=== PATIENT | female | born 1935 | race Caucasian/White ===

== ENCOUNTER 2018-03-03 22:12 | Inpatient (IN) | payer MEDICARE, MEDICAID ==
[~2018-03-03] VITALS: Ht 160 cm; Wt 99.4 kg
[2018-03-03] MEDS ORDERED: ONDANSETRON 4 MG/2 ML (SDV) Z0FRAN IV PRN (22:15)
[2018-03-03] MEDS ORDERED: BENZONATATE 100 MG (TESSALON) CAPSULE PO PRN (22:15)
[2018-03-03] MEDS ORDERED: MILK OF MAGNESIA 400 MG/5 ML 30 ML UDC PO PRN (22:15)
[2018-03-03] MEDS ORDERED: NOREPINEPHRINE 4 MG in NS (IVPB) 250 ML IV SCH (22:15)
[2018-03-03] MEDS ORDERED: ACETAMINOPHEN 500 MG TAB (TYLENOL) PO PRN (22:15)
[2018-03-03] MEDS ORDERED: MELATONIN 3 MG TABLET PO PRN (22:15)
[2018-03-03] MEDS ORDERED: ANTACID SUSP 30 ML UDC (MYLANTA) PO PRN (22:15)
[2018-03-03 23:46] VITALS: BP 151/52
[2018-03-04] VITALS (30 sets, daily range): BP systolic 100–171; BP diastolic 43–105
[2018-03-04 00:48] LABS: BASOPHILS % (AUTO) 0 % (0-10); EOSINOPHILS % (AUTO) 0 % (0-10); HEMATOCRIT 41 % (35-52); HEMOGLOBIN 13.2 G/DL (11.5-16.0); LYMPHOCYTES # (AUTO) 0.5 X 10^3 (1.0-4.0); LYMPHOCYTES % (AUTO) 4 % (12-44); MEAN CORPUSCULAR HEMOGLOBIN 29 PG (25-34); MEAN CORPUSCULAR HGB CONC 32 G/DL (32-36); MEAN CORPUSCULAR VOLUME 92 FL (80-99); MEAN PLATELET VOLUME 13.1 FL (7.4-10.4); MONOCYTES # (AUTO) 0.4 X 10^3 (0.0-1.0); MONOCYTES % (AUTO) 3 % (0-12); NEUTROPHILS # (AUTO) 11.8 X 10^3 (1.8-7.8); NEUTROPHILS % (AUTO) 93 % (42-75); PLATELET COUNT 153 10^3/uL (130-400); RED BLOOD COUNT 4.52 10^6/uL (4.35-5.85); RED CELL DISTRIBUTION WIDTH 14.4 % (10.0-14.5); WHITE BLOOD COUNT 12.7 10^3/uL (4.3-11.0)
[2018-03-04] MEDS ORDERED: NS IV 1000 ML 1,000 ML IV SCH (01:00)
[2018-03-04 01:07] LABS: ALBUMIN 3.7 GM/DL (3.2-4.5); BILIRUBIN,TOTAL 0.5 MG/DL (0.1-1.0); CREATININE SERUM 1.09 MG/DL (0.60-1.30); MAGNESIUM 1.5 MG/DL (1.8-2.4); PHOSPHORUS 3.1 MG/DL (2.3-4.7); POTASSIUM 4.6 MMOL/L (3.6-5.0); TOTAL PROTEIN 6.6 GM/DL (6.4-8.2)
[2018-03-04 01:19] LABS: BAND NEUTROPHILS 2 %; LYMPHOCYTES % (MANUAL) 1 %; MONOCYTES % (MANUAL) 1 %; NEUTROPHILS % (MANUAL) 96 %; RBC MORPH NORMAL
[2018-03-04] MEDS ORDERED: ACETAMINOPHEN 325 MG TABLET ONE (01:41)
[2018-03-04] MEDS: ACETAMINOPHEN 325 MG TABLET PO PRN ×3 (01:47→20:46)
--- NOTE | 2018-03-04 05:42 | Pulmonary Consultation ---
History of Present Illness History of Present Illness Date of Consultation 03/04/18 05:37 Date of Admission Allergies and Home Medications Allergies Coded Allergies: Penicillins (Verified Allergy, Unknown, 03/04/18) acetaminophen (Verified Allergy, Unknown, 03/04/18) codeine (Verified Allergy, Unknown, 03/04/18) levofloxacin (Verified Allergy, Unknown, 03/04/18) meperidine (Verified Allergy, Unknown, 03/04/18) mirabegron (Verified Allergy, Unknown, 03/04/18) morphine (Verified Allergy, Unknown, 03/04/18) oxycodone (Verified Allergy, Unknown, 03/04/18) sitagliptin (Verified Allergy, Unknown, 03/04/18) Past Dffhnxe-Mokpha-Fagcat Hx Patient Social History Smoking Status: Former Smoker Type Used: Cigarettes Former Smoker, Quit: Jul 22, 1992 Recent Foreign Travel: No Contact w/Someone Who Travel: No Recent Infectious Disease Expo: No Recent Hopitalizations: No Immunizations Up To Date Date of Pneumonia Vaccine: Dec 12, 2017 Date of Influenza Vaccine: Dec 12, 2017 Seasonal Allergies Seasonal Allergies: No Past Medical History Surgeries: Yes Respiratory: Yes Asthma Currently Using CPAP: No Currently Using BIPAP: No Cardiac: Yes Neurological: Yes Genitourinary: Yes (INCONT) UTI-Chronic Gastrointestinal: No Musculoskeletal: Yes (STENOSIS) Arthritis, Chronic Back Pain Endocrine: Yes HEENT: No Cancer: Yes Skin Did You Recieve Any Treatments: Yes What Type of Treatment Did You: Surgical Intervention Psychosocial: No Integumentary: No Blood Disorders: No Family Medical History Cardiovascular disease G8 BROTHER Completed stroke G8 SISTER Diabetes mellitus 19 MOTHER G8 BROTHER Fibromyalgia DAUGHTER Myocardial infarction 19 FATHER G8 BROTHER Sepsis Event Evaluation Height, Weight, BMI Height: 5'3.00" Weight: 216lbs. 8.0oz. 98.625614pt; 38.4 BMI Method: Exam Exam Vital Signs Date Time Temp Pulse Resp B/P (MAP) Pulse Ox O2 Delivery O2 Flow Rate FiO2 03/04/18 04:14 100.0 03/04/18 04:01 Nasal Cannula 2.00 03/04/18 04:00 88 116/69 (85) 100 Nasal Cannula 2.00 03/04/18 03:45 101 28 100/43 (62) 94 Nasal Cannula 2.00 03/04/18 03:30 88 8 123/58 (79) 96 Room Air 03/04/18 03:19 100.4 03/04/18 03:15 98 31 136/62 (86) 94 Room Air 03/04/18 03:00 90 28 145/59 (87) 94 Room Air 03/04/18 02:45 94 28 148/92 (110) 94 Room Air 03/04/18 02:34 100.8 03/04/18 02:30 86 28 162/61 (94) 95 Room Air 03/04/18 02:17 101.3 03/04/18 02:16 101.3 03/04/18 02:15 99 32 168/70 (102) 95 Room Air 03/04/18 02:00 90 20 165/91 (115) 95 Room Air 03/04/18 01:51 100.5 03/04/18 01:47 100.1 03/04/18 01:45 90 36 152/93 (112) 94 Room Air 03/04/18 01:45 100.1 03/04/18 01:30 85 39 149/105 (120) 96 Room Air 03/04/18 01:28 100.1 03/04/18 01:15 93 10 171/63 (99) 92 Room Air 03/04/18 01:00 90 03/04/18 01:00 90 24 131/83 (99) 91 Room Air 03/04/18 00:58 99.6 03/04/18 00:45 101 142/80 (100) 92 Room Air 03/04/18 00:30 95 Room Air 03/04/18 00:15 77 22 135/48 (77) 92 Room Air 03/04/18 00:00 101 17 146/82 (103) 94 Room Air 03/03/18 23:50 99 03/03/18 23:46 98.5 95 35 151/52 (85) 96 Room Air 03/03/18 23:40 Room Air I & O 03/04/18 07:00 Intake Total 100 ml Output Total 300 ml Balance -200 ml Height & Weight Height: 5'3.00" Weight: 216lbs. 8.0oz. 98.728363rn; 38.4 BMI Method: Results Lab Laboratory Tests 03/04/18 00:25 Assessment/Plan Assessment/Plan Pneumonia with sepsis -Continue rocephin and azithromycin -IVF -d[place]ont culture -check UA -CHeck urine strep, legionella ag Hx of tobacco use over 30pk/yr hx Will transfer to 4th floor. LISBET DANIELS DO Mar 04, 2018 05:42
[2018-03-04] MEDS ORDERED: MAGNESIUM 1 GM/100 ML IVPB 100 ML IV SCH (06:00)
[2018-03-04] MEDS ORDERED: POTASSIUM CL 10MEQ/50ML IVPB 50 ML IV SCH (06:00)
[2018-03-04] MEDS ORDERED: KCL 20 MEQ TAB (K-DUR) PO SCH (06:00)
--- NOTE | 2018-03-04 06:28 | History & Physical-Hospitalist ---
History of Present Illness HPI/Chief Complaint Pt is an 82yoCF with a PMH of NIDDMII, HTN, CAD who presented to outside ER as she was not feeling well. She states she does not remember much of yesterday or her symptoms and thus her history is limited. She knows she started to feel short of breath and have a dry cough. She also believes she had a fever though is not sure how high. Otherwise she "doesn't remember" any oother details. She was found at [facility] ER to be febrile with leukocytosis and a lactic acid of 3.7. She was transferred here for ICU services. Source: patient Exam Limitations: clinical condition Date Seen 03/04/18 Time Seen by a Provider: 06:23 Attending Physician Ne Urena MD PCP Referring Physician Date of Admission Mar 03, 2018 at 23:40 Home Medications & Allergies Home Medications Reviewed patient Home Medication Reconciliation performed by pharmacy medication reconciliations guitar technician and/or nursing. Patients Allergies have been reviewed. Allergies Allergies Coded Allergies Penicillins (Verified Allergy, Unknown, 03/04/18) acetaminophen (Verified Allergy, Unknown, 03/04/18) codeine (Verified Allergy, Unknown, 03/04/18) levofloxacin (Verified Allergy, Unknown, 03/04/18) meperidine (Verified Allergy, Unknown, 03/04/18) mirabegron (Verified Allergy, Unknown, 03/04/18) morphine (Verified Allergy, Unknown, 03/04/18) oxycodone (Verified Allergy, Unknown, 03/04/18) sitagliptin (Verified Allergy, Unknown, 03/04/18) Past Xdkkpog-Wpuekk-Cgfqlb Hx Past Med/Social Hx: Reviewed Nursing Past Med/Soc Hx Patient Social History Smoking Status: Former Smoker Former Smoker, Quit: Jul 22, 1992 Type Used: Cigarettes Recent Foreign Travel: No Contact w/other who traveled: No Recent Hopitalizations: No Recent Infectious Disease Expo: No Immunizations Up To Date Date of Pneumonia Vaccine: Dec 12, 2017 Date of Influenza Vaccine: Dec 12, 2017 Seasonal Allergies Seasonal Allergies: No Past Medical History Respiratory: Pneumonia Currently Using CPAP: No Currently Using BIPAP: No Cardiac: Coronary Artery Disease, Hypertension Neurological: Neuropathy Genitourinary: UTI-Chronic Musculoskeletal: Arthritis, Chronic Back Pain Cancer: Skin (basal cell) Did You Recieve Any Treatments: Yes What Type of Treatment Did You: Surgical Intervention History of Blood Disorders: No Family History Reviewed Nursing Family Hx Cardiovascular disease G8 BROTHER Completed stroke G8 SISTER Diabetes mellitus 19 MOTHER G8 BROTHER Fibromyalgia DAUGHTER Myocardial infarction 19 FATHER G8 BROTHER Review of Systems Constitutional: fever EENTM: No blurred vision, No double vision, No nose congestion, No throat pain Respiratory: cough; No phlegm; short of breath Cardiovascular: chest pain (intermittant- not current) Gastrointestinal: No abdominal pain, No constipation, No diarrhea, No nausea, No vomiting Genitourinary: No dysuria, No frequency Musculoskeletal: No joint pain, No muscle pain Skin: No lesions, No rash Psychiatric/Neurological: Denies Headache, Denies Numbness, Denies Tingling Physical Exam Physical Exam Vital Signs Vital Signs - First Documented 03/03/18 03/03/18 03/04/18 03/04/18 23:40 23:46 03:45 10:05 Temp 98.5 Pulse 95 Resp 35 B/P (MAP) 151/52 (85) Pulse Ox 96 O2 Delivery Room Air O2 Flow Rate 2.00 FiO2 21 Capillary Refill : Height, Weight, BMI Height: 5'3.00" Weight: 216lbs. 8.0oz. 98.702905ob; 38.4 BMI Method: General Appearance: No Apparent Distress, Chronically ill, Obese HEENT: PERRL/EOMI, Moist Mucous Membranes; No Scleral Icterus (L), No Scleral Icterus (R) Neck: Non Tender, Supple Respiratory: Lungs Clear, No Respiratory Distress Cardiovascular: Regular Rate, Rhythm, No Murmur Gastrointestinal: Normal Bowel Sounds, Non Tender, Soft Extremity: Normal Capillary Refill, No Calf Tenderness Neurologic/Psychiatric: Alert, Oriented x3, Normal Mood/Affect Skin: Normal Color, Warm/Dry Results Results/Procedures Labs Laboratory Tests 03/04/18 00:25 03/05/18 05:15 Patient resulted labs reviewed. Imaging: Reviewed Imaging Films Assessment/Plan Admission Diagnosis Severe Sepsis Admission Status: Inpatient Order (span 2 midnights) Reason for Inpatient Admission: Will need IV abx, await cultures, will likely benjamín emore than two midnights to stabilize for discharge Diagnosis/Problems Diagnosis/Problems (1) Severe sepsis Status: Acute Assessment & Plan: Febrile with leukocytosis and elevated lactic on arrival Not hypotensive so no indication for 30cc/kg bolus Await cultures Continue on Rocephin and Azithro (2) CAP (community acquired pneumonia) Status: Acute Assessment & Plan: Continue abx as above Pulm consulted, appreciate recs Qualifiers: Laterality: unspecified laterality Qualified Codes: J18.9 - Pneumonia, unspecified organism (3) Non-insulin dependent type 2 diabetes mellitus Assessment & Plan: SSI ACHS blood sugars (4) Essential (primary) hypertension Assessment & Plan: Well controlled Trend (5) CAD (coronary artery disease) Assessment & Plan: Chronic intermittent chest pain- no current chest pain Follows with Dr Pritchard as [facility] high sensitivity troponin mildly elevated at outside facility Will check troponin here Qualifiers: Coronary Disease-Associated Artery/Lesion type: [place] artery [place] vs. transplanted heart: [place] heart Associated angina: with stable angina Qualified Codes: I25.118 - Atherosclerotic heart disease of [place] coronary artery with other forms of angina pectoris Clinical Quality Measures DVT/VTE Risk/Contraindication: Risk Factor Score Per Nursin RFS Level Per Nursing on Admit: 4+=Very High NE URENA MD Mar 04, 2018 6:28 am
[2018-03-04 06:47] LABS: BILIRUBIN,URINE NEGATIVE (NEGATIVE); CLARITY,URINE CLEAR; COLOR,URINE YELLOW; GLUCOSE, URINE (UA) 4+ (NEGATIVE); KETONES,URINE NEGATIVE (NEGATIVE); LEUKOCYTE ESTERASE ,URINE 1+ (NEGATIVE); NITRITE,URINE NEGATIVE (NEGATIVE); PH,URINE 5 (5-9); PROTEIN,URINE 1+ (NEGATIVE); UROBILINOGEN,URINE NORMAL (NORMAL)
[2018-03-04 07:06] LABS: BACTERIA,URINE NEGATIVE /HPF
[2018-03-04] MEDS: cefTRIAXone FOR IV USE 1,000 MG in NS (IVPB) 50 ML IV SCH (08:00)
[2018-03-04] MEDS ORDERED: AZITHROMYCIN INJECTION 500 MG in NS (IVPB) 250 ML IV SCH (09:00)
[2018-03-04] MEDS: inSUlin ASPART (NovoLOG) 1 UNIT/0.01 ML (CHARGE PER UNIT) SC SCH ×3 (11:38→20:41)
--- NOTE | 2018-03-04 12:41 | Diagnostic Imaging Report ---
INDICATION: Sepsis. TECHNIQUE: Single view chest 4:07 AM. CORRELATION STUDY: None FINDINGS: Heart size enlarged. Areas of atelectasis and/or infiltrate about both lung bases. Mildly prominent interstitial markings. Component of additional infiltrate about the right upper lobe suspect. Trace effusions. Calcification of the aortic arch. IMPRESSION: 1. Scattered pulmonary parenchymal densities particularly at the lung bases right lung apex, may be reflective of areas of infiltrate and/or edema. Follow-up imaging recommended. Dictated by: Dictated on workstation # [id number]
[2018-03-04] MEDS ORDERED: ALEN70TA47 PO (14:34)
[2018-03-04] MEDS ORDERED: ESTR42.52 VG (14:34)
[2018-03-04] MEDS ORDERED: METO-370 PO (14:34)
[2018-03-04] MEDS ORDERED: LISI-552 PO (14:34)
[2018-03-04] MEDS ORDERED: GLIM2TAB PO (14:34)
[2018-03-04] MEDS ORDERED: APIX5TAB PO (14:34)
[2018-03-04] MEDS ORDERED: ASPI-983 PO (14:34)
[2018-03-04] MEDS ORDERED: LORA10TA7 PO (14:34)
[2018-03-04] MEDS ORDERED: AMIT25TA9 PO (14:34)
[2018-03-04] MEDS ORDERED: LINA5TAB PO (14:34)
[2018-03-04] MEDS ORDERED: ROSU20TA31 PO (14:34)
[2018-03-04] MEDS ORDERED: BENZ-13 PO (14:42)
[2018-03-04] MEDS ORDERED: MAGN27TA2 PO (14:42)
[2018-03-04] MEDS ORDERED: OMEP20TA33 PO (14:42)
[2018-03-04] MEDS ORDERED: RT-ALBUINH IH (14:42)
[2018-03-04] MEDS ORDERED: AC160U10 PO (14:42)
[2018-03-04] MEDS ORDERED: NITR0.4T42 SL (14:42)
[2018-03-04] MEDS ORDERED: MULT-974 PO (14:42)
[2018-03-04] MEDS ORDERED: ESTRADIOL VAGINAL CREAM 42.5 GM (ESTRACE) VG SCH (15:15)
[2018-03-04] MEDS ORDERED: APAP 325 MG/10.15 ML LIQ (TYLENOL) UDC PO PRN (15:15)
[2018-03-04] MEDS ORDERED: diphenhydrAMINE 25 MG TAB (BENADRYL) PO PRN (16:15)
[2018-03-04] MEDS ORDERED: RT-ALBUTEROL/IPRATROPIUM 3 ML (DUONEB) VIAL ONE (17:22)
[2018-03-04] MEDS ORDERED: RT-ALBUTEROL/IPRATROPIUM 3 ML (DUONEB) VIAL INH PRN (17:30)
[2018-03-04] MEDS: APIXABAN 5 MG (ELIQUIS) TABLET PO SCH (20:39)
[2018-03-04] MEDS: LORATADINE (CLARITIN) 10 MG TAB PO SCH (20:39)
[2018-03-04] MEDS: lisINopril 20 MG (PRINIVIL) TABLET PO SCH (20:40)
[2018-03-04] MEDS: AMITRIPTYLINE 25 MG (ELAVIL) TAB PO PRN (20:45)
[2018-03-05 03:26] VITALS: BP 166/77
[2018-03-05 05:53] LABS: BASOPHILS % (AUTO) 1 % (0-10); EOSINOPHILS # (AUTO) 0.3 10^3/uL (0.0-0.3); EOSINOPHILS % (AUTO) 7 % (0-10); HEMATOCRIT 39 % (35-52); HEMOGLOBIN 12.2 G/DL (11.5-16.0); LYMPHOCYTES # (AUTO) 0.8 X 10^3 (1.0-4.0); LYMPHOCYTES % (AUTO) 20 % (12-44); MEAN CORPUSCULAR HEMOGLOBIN 29 PG (25-34); MEAN CORPUSCULAR HGB CONC 32 G/DL (32-36); MEAN CORPUSCULAR VOLUME 93 FL (80-99); MEAN PLATELET VOLUME 13.2 FL (7.4-10.4); MONOCYTES # (AUTO) 0.4 X 10^3 (0.0-1.0); MONOCYTES % (AUTO) 10 % (0-12); NEUTROPHILS # (AUTO) 2.6 X 10^3 (1.8-7.8); NEUTROPHILS % (AUTO) 63 % (42-75); PLATELET COUNT 123 10^3/uL (130-400); RED BLOOD COUNT 4.17 10^6/uL (4.35-5.85); RED CELL DISTRIBUTION WIDTH 14.5 % (10.0-14.5); WHITE BLOOD COUNT 4.2 10^3/uL (4.3-11.0)
[2018-03-05 06:23] LABS: ALANINE AMINOTRANSFERASE 38 U/L (0-55); ALBUMIN 3.1 GM/DL (3.2-4.5); ALKALINE PHOSPHATASE 92 U/L (40-136); BILIRUBIN,TOTAL 0.3 MG/DL (0.1-1.0); BUN/CREATININE RATIO 18; CALCIUM 8.8 MG/DL (8.5-10.1); CARBON DIOXIDE 24 MMOL/L (21-32); CHLORIDE 106 MMOL/L (98-107); CREATININE SERUM 0.84 MG/DL (0.60-1.30); GFR ESTIMATED > 60; GLUCOSE 136 MG/DL (70-105); MAGNESIUM 1.6 MG/DL (1.8-2.4); PHOSPHORUS 3.5 MG/DL (2.3-4.7); POTASSIUM 4.5 MMOL/L (3.6-5.0); SODIUM 140 MMOL/L (135-145); TOTAL PROTEIN 5.9 GM/DL (6.4-8.2)
[2018-03-05] MEDS: inSUlin ASPART (NovoLOG) 1 UNIT/0.01 ML (CHARGE PER UNIT) SC SCH ×4 (06:25→21:18)
--- NOTE | 2018-03-05 07:44 | Progress Note-Hospitalist ---
Subjective HPI/CC On Admission Date Seen by Provider: Mar 05, 2018 Time Seen by Provider: 07:39 Pt is an 82yoCF with a PMH of NIDDMII, HTN, CAD who presented to outside ER as she was not feeling well. She states she does not remember much of yesterday or her symptoms and thus her history is limited. She knows she started to feel short of breath and have a dry cough. She also believes she had a fever though is not sure how high. Otherwise she "doesn't remember" any oother details. She was found at [facility] ER to be febrile with leukocytosis and a lactic acid of 3.7. She was transferred here for ICU services. Subjective/Events-last exam Pt reports feeling much better today. Reports was up and out of bed yesterday without difficulty. Daughters at bedside express concern about rash on legs but feel it is much improved. They are concerned she was allergic to an abx given in [facility] or at for her urology appointment. Focused Exam Lactate Level 03/04/18 00:25: Lactic Acid Level 1.95 Objective Exam Vital Signs Vital Signs Date Time Temp Pulse Resp B/P (MAP) Pulse Ox O2 Delivery O2 Flow Rate FiO2 03/05/18 03:26 96.0 96 20 166/77 (106) 100 Nasal Cannula 2.00 03/04/18 10:05 21 Capillary Refill : General Appearance: No Apparent Distress, WD/WN Respiratory: Lungs Clear, No Respiratory Distress Cardiovascular: Regular Rate, Rhythm, No Murmur Extremity: Other (very mild erythema of feet) Neurologic/Psychiatric: Alert, Oriented x3 Results/Procedures Lab Laboratory Tests 03/05/18 05:15 Patient resulted labs reviewed. Imaging: Reviewed Imaging Films Assessment/Plan Assessment and Plan Assess & Plan/Chief Complaint Severe Sepsis Diagnosis/Problems Diagnosis/Problems (1) Severe sepsis Status: Acute Assessment & Plan: Fever resolved leukocytosis resolved BC NGTD Will request records from [facility] Continue on Rocephin and Azithro (2) CAP (community acquired pneumonia) Status: Acute Assessment & Plan: Continue abx as above Pulm consulted, appreciate recs Will get home oxygen study and noc ox Qualifiers: Laterality: unspecified laterality Qualified Codes: J18.9 - Pneumonia, unspecified organism (3) Non-insulin dependent type 2 diabetes mellitus Assessment & Plan: SSI ACHS blood sugars (4) Essential (primary) hypertension Assessment & Plan: Well controlled Trend (5) CAD (coronary artery disease) Assessment & Plan: Continue home meds Troponin negative Qualifiers: Coronary Disease-Associated Artery/Lesion type: [place] artery [place] vs. transplanted heart: [place] heart Associated angina: with stable angina Qualified Codes: I25.118 - Atherosclerotic heart disease of [place] coronary artery with other forms of angina pectoris (6) Diabetic neuropathy Assessment & Plan: Continue home meds PT consulted Qualifiers: Diabetes mellitus type: type 2 Diabetes mellitus complication detail: diabetic polyneuropathy Qualified Codes: E11.42 - Type 2 diabetes mellitus with diabetic polyneuropathy (7) Rash Assessment & Plan: Concerning for hypersensitivity Now nearly resolved Continue prn benadryl Likely for abx used at outside facility Clinical Quality Measures DVT/VTE Risk/Contraindication: Risk Factor Score Per Nursin RFS Level Per Nursing on Admit: 4+=Very High NE BAIN MD Mar 05, 2018 7:43 am
[2018-03-05 08:25] VITALS: BP 136/68
[2018-03-05] MEDS: cefTRIAXone FOR IV USE 1,000 MG in NS (IVPB) 50 ML IV SCH (09:28)
[2018-03-05] MEDS: lisINopril 20 MG (PRINIVIL) TABLET PO SCH ×2 (09:28→20:07)
[2018-03-05] MEDS: meTOproloL SUCCINATE 50 MG (TOPROL XL) TAB PO SCH (09:28)
[2018-03-05] MEDS: APIXABAN 5 MG (ELIQUIS) TABLET PO SCH ×2 (09:28→20:07)
[2018-03-05] MEDS: ROSUVASTATIN 20 MG (CRESTOR) TABLET PO SCH (09:28)
[2018-03-05] MEDS: ASPIRIN E.C. 81 MG (ECOTRIN) TAB PO SCH (09:29)
[2018-03-05] MEDS: AZITHROMYCIN 250 MG TAB (ZITHROMAX) PO SCH (09:29)
--- NOTE | 2018-03-05 11:21 | Physical Therapy Evaluation ---
PT Evaluation-General Medical Diagnosis Admission Date Mar 03, 2018 at 23:40 Medical Diagnosis: pneumonia with sepsis Onset Date: Mar 03, 2018 Therapy Diagnosis Therapy Diagnosis: weakness Height/Weight Height (Feet): 5 Height (Inches): 3.00 Weight (Pounds): 218 Weight (Ounces): 12.8 Precautions Precautions/Isolations: Fall Prevention, Standard Precautions Weight Bear Status Right Lower Extremity: Right Weight Bearing/Tolerated Left Lower Extremity: Left Weight Bearing/Tolerated Referral Physician: Johanna Urena Reason for Referral: Evaluation/Treatment Medical History Pertinent Medical History: Arthritis, CAD, DM, HTN Additional Medical History chronic UTI, neuropathy, former smoker Current History Pt presented to [facility] ER with c/o SOB and dry cough. Transferred to [facility] ICU for pneumonia with sepsis. Reviewed History: Yes Social History Home: Single Level Current Living Status: Children Entry Into Home: Stairs With Railing PT Steps Into Home: 2 Prior/Core FIM Prior Level of Function Functional [place] Measure 0=Not Assessed/NA 4=Minimal Assistance 1=Total Assistance 5=Supervision or Setup 2=Maximal Assistance 6=Modified [place] 3=Moderate Assistance 7=Complete IndependenceIRFPAI Quality Coding Scale 6 Independent with activity with or without an assistive device 5 Patient requires set up or clean up by helper. Patient completes activity by themselves 4 Supervision or touching assist (CGA). Starks provide cues , steadying assist 3 The helper provides less than half the effort to complete the activity 2 The helper provides more than half the effort to complete the activity 1 Dependent. The helper does all the effort to complete an activity 7 Patient refused to complete or attempt activity 9 The patient did not perform the activity before the current illness or injury 88 Not attempted due to Medical conditions or safety concerns Bed Mobility: 6 Transfers (B,C,W/C) (FIM): 6 Gait: 6 Pt utilizes 4WW at all times, "except in my room" to which Pt reports she furniture cruises. Pt reports she is limited in ambulation distance "because my arms just get so tired". Tends to stop and rest with forearms on the walker. PT Evaluation-Current Subjective Pt up in chair, agreeable with encouragement. Pt/Family Goals Home with family Objective Patient Orientation: Person, Place, Time, Situation Problem Solving: Good Attachments: Oxygen, Grant Catheter ROM/Strength ROM Upper Extremities WFL for mobility ROM Lower Extremities WFL for mobility Strength Upper Extremities WFL for mobility Strength Lower Extremities Grossly 3+/5 Integumentary/Posture Integumentary See nursing notes Bladder Incontinence: Grant Cath Posture Kyphotic Sensory Vision: Functional Hearing: Functional Sensation Right Lower Extremit: Impaired Sensation Left Lower Extremity: Impaired Sensation Lower Extremities neuropathy Transfers Functional [place] Measure 0=Not Assessed/NA 4=Minimal Assistance 1=Total Assistance 5=Supervision or Setup 2=Maximal Assistance 6=Modified [place] 3=Moderate Assistance 7=Complete [place] Gait Anticipated Mode of Locomotion: Walk Gait (FIM): 5 Distance (FIM): 3=150 ft Distance: 250 Gait Level of Assist: 5 Gait Persons Needed: 1 Gait Assistive Device: Walker 4 Wheeled Comments/Gait Description Assist with O2 tank. SBA with occasional VCS for safety. Pt ambulates with flexed posture, advancing walker too far at times but no LOB. Educated on avoiding ambulation with forearms on walker due to fall risk; Pt agreeable but states she does this due to UE fatigue. Balance Sitting Static: Normal Sitting Dynamic: Normal Standing Static: Good Standing Dynamic: Fair Treatment Eval. Returned to chair with O2 in situ, needs met and family in room. Assessment/Needs Pt is an 82 y.o. female admitted with pneumonia and sepsis. Pt reports she is near [facility] for mobility and is currently SBA-Mod (I) with transfers and gait. Pt would benefit from skilled PT for general functional strengthening and gait training to improve safety and (I) and functional activity tolerance. Rehab Potential: Good PT Short Term Goals Short Term Goals Time Frame: Mar 09, 2018 Transfers (B,C,W/C) (FIM): 6 PT [employer] Goals [employer] Goals PT Prison Goals Time Frame: Mar 12, 2018 Gait (FIM): 6 Gait distance (FIM): 3=150 ft Distance: 150 Gait Level of Assist: 6 Gait Assistive Device: Walker 4 Wheeled Stairs (FIM): 2 # of Steps: 4 Stairs Level Of Assist: 4 LTGs established to allow safe return home with family. PT Plan Problem List Problem List: Activity Tolerance, Functional Strength, Safety, Balance, Gait, Transfer Treatment/Plan Treatment Plan: Continue Plan of Care Treatment Plan: Education, Functional Activity Brandie, Functional Strength, Gait , Safety, Therapeutic Exercise, Transfers Treatment Duration: Mar 12, 2018 Frequency: 6 times per week Estimated Hrs Per Day: .25 hour per day Patient and/or Family Agrees t: Yes Safety Risks/Education Patient Education: Gait Training, Safety Issues Teaching Recipient: Patient Teaching Methods: Discussion Response to Teaching: Verbalize Understanding Discharge Recommendations Therapy D/C Recommendations: Home w/ Family Support Barriers to Progress None Time/GCodes Time In: 1045 Time Out: 1104 Total Billed Treatment Time: 19 Total Billed Treatment 1, EVLOWC x 19' G Codes Necessary: No ARGELIA MICHEL DPT Mar 05, 2018 11:21
[2018-03-05 12:59] VITALS: BP 134/68
[2018-03-05 16:40] VITALS: BP 148/76
[2018-03-05 19:54] VITALS: BP 138/63
[2018-03-05] MEDS: LORATADINE (CLARITIN) 10 MG TAB PO SCH (20:07)
[2018-03-05] MEDS: AMITRIPTYLINE 25 MG (ELAVIL) TAB PO PRN (20:10)
[2018-03-06 00:10] VITALS: BP 140/81
[2018-03-06 04:25] VITALS: BP 169/75
[2018-03-06] MEDS: inSUlin ASPART (NovoLOG) 1 UNIT/0.01 ML (CHARGE PER UNIT) SC SCH ×2 (06:03→11:36)
[2018-03-06 08:00] VITALS: BP 137/69
[2018-03-06 08:18] LABS: BASOPHILS % (AUTO) 1 % (0-10); EOSINOPHILS # (AUTO) 0.3 10^3/uL (0.0-0.3); EOSINOPHILS % (AUTO) 6 % (0-10); HEMATOCRIT 39 % (35-52); HEMOGLOBIN 12.3 G/DL (11.5-16.0); LYMPHOCYTES # (AUTO) 1.2 X 10^3 (1.0-4.0); LYMPHOCYTES % (AUTO) 27 % (12-44); MEAN CORPUSCULAR HGB CONC 32 G/DL (32-36); MEAN CORPUSCULAR VOLUME 91 FL (80-99); MEAN PLATELET VOLUME 13.1 FL (7.4-10.4); MONOCYTES # (AUTO) 0.4 X 10^3 (0.0-1.0); MONOCYTES % (AUTO) 10 % (0-12); NEUTROPHILS # (AUTO) 2.6 X 10^3 (1.8-7.8); NEUTROPHILS % (AUTO) 58 % (42-75); PLATELET COUNT 150 10^3/uL (130-400); RED BLOOD COUNT 4.32 10^6/uL (4.35-5.85); RED CELL DISTRIBUTION WIDTH 14.3 % (10.0-14.5); WHITE BLOOD COUNT 4.4 10^3/uL (4.3-11.0)
[2018-03-06 08:23] LABS: MEAN CORPUSCULAR HEMOGLOBIN 28 PG (25-34)
[2018-03-06 08:32] LABS: ALANINE AMINOTRANSFERASE 38 U/L (0-55); ALBUMIN 3.3 GM/DL (3.2-4.5); ALKALINE PHOSPHATASE 102 U/L (40-136); BILIRUBIN,TOTAL 0.4 MG/DL (0.1-1.0); BUN/CREATININE RATIO 20; CALCIUM 9.4 MG/DL (8.5-10.1); CARBON DIOXIDE 25 MMOL/L (21-32); CHLORIDE 101 MMOL/L (98-107); CREATININE SERUM 0.84 MG/DL (0.60-1.30); GFR ESTIMATED > 60; GLUCOSE 194 MG/DL (70-105); MAGNESIUM 1.2 MG/DL (1.8-2.4); PHOSPHORUS 4.1 MG/DL (2.3-4.7); POTASSIUM 4.5 MMOL/L (3.6-5.0); SODIUM 137 MMOL/L (135-145); TOTAL PROTEIN 6.3 GM/DL (6.4-8.2)
[2018-03-06] MEDS: cefTRIAXone FOR IV USE 1,000 MG in NS (IVPB) 50 ML IV SCH (09:00)
[2018-03-06] MEDS: lisINopril 20 MG (PRINIVIL) TABLET PO SCH (09:15)
[2018-03-06] MEDS: meTOproloL SUCCINATE 50 MG (TOPROL XL) TAB PO SCH (09:15)
[2018-03-06] MEDS: ROSUVASTATIN 20 MG (CRESTOR) TABLET PO SCH (09:15)
[2018-03-06] MEDS: APIXABAN 5 MG (ELIQUIS) TABLET PO SCH (09:15)
[2018-03-06] MEDS: ASPIRIN E.C. 81 MG (ECOTRIN) TAB PO SCH (09:15)
[2018-03-06] MEDS: AZITHROMYCIN 250 MG TAB (ZITHROMAX) PO SCH (09:15)
[2018-03-06] MEDS ORDERED: CEPHALEXIN 250 MG (KEFLEX) CAP PO NR (10:00)
[2018-03-06] MEDS ORDERED: MAGNESIUM 1 GM/100 ML IVPB 100 ML IV SCH (10:00)
[2018-03-06] MEDS ORDERED: MAGNESIUM OXIDE (MAG-OX)400 MG TAB PO NR (10:00)
[2018-03-06] MEDS ORDERED: AZIT250T12 PO (10:11)
[2018-03-06] MEDS ORDERED: L.AC1CAP6 PO (10:11)
[2018-03-06] MEDS ORDERED: CEPH-507 PO (10:11)
--- NOTE | 2018-03-06 10:19 | Discharge Inst-Simple/Standard ---
Discharge Inst-Standard Discharge Medications New, Converted or Re-Newed RX: RX on Chart Patient Instructions/Follow Up Plan of Care/Instructions/FU: Please continue to take your medicatinos as written. Please follow up with your primary care provider Madeline Mercado NP to folow up this hospital stay. Activity as Tolerated: Yes Discharge Diet: Cardiac Diet Return to The Hospital For: Chest pain, shortness of breath, worsening fever or fever unresponsive to Tylenol, confusion, or if you feel you are getting worse. NE BAIN MD Mar 06, 2018 10:19
--- NOTE | 2018-03-06 10:23 | Discharge Summary-Hospitalist ---
Diagnosis/Chief Complaint Date of Admission Mar 03, 2018 at 23:40 Date of Discharge Discharge Date: Mar 06, 2018 Admission Diagnosis Severe Sepsis Discharge Diagnosis (1) Severe sepsis Status: Acute Assessment & Plan: Fever resolved leukocytosis resolved BC NGTD Transition to keflex with azithromycin for discharge (2) CAP (community acquired pneumonia) Status: Acute Assessment & Plan: Continue abx as above [place] consulted, appreciate recs Did not qualify for oxygen on ambulatory or nocturnal study (3) Non-insulin dependent type 2 diabetes mellitus Assessment & Plan: SSI ACHS blood sugars (4) Essential (primary) hypertension Assessment & Plan: Well controlled Trend (5) CAD (coronary artery disease) Assessment & Plan: Continue home meds Troponin negative (6) Diabetic neuropathy Assessment & Plan: Continue home meds PT consulted (7) Rash Assessment & Plan: Concerning for hypersensitivity Now nearly resolved Continue prn benadryl Likely for abx used at outside facility Discharge Summary Procedures/Consulations Dr Heather Biag Discharge Physical Exam Allergies: Coded Allergies: Penicillins (Verified Allergy, Unknown, 03/04/18) acetaminophen (Verified Allergy, Unknown, 03/04/18) codeine (Verified Allergy, Unknown, 03/04/18) levofloxacin (Verified Allergy, Unknown, 03/04/18) meperidine (Verified Allergy, Unknown, 03/04/18) mirabegron (Verified Allergy, Unknown, 03/04/18) morphine (Verified Allergy, Unknown, 03/04/18) oxycodone (Verified Allergy, Unknown, 03/04/18) sitagliptin (Verified Allergy, Unknown, 03/04/18) Vitals & I&Os Vital Signs Date Time Temp Pulse Resp B/P (MAP) Pulse Ox O2 Delivery O2 Flow Rate FiO2 03/06/18 07:00 90 03/06/18 04:25 97.8 16 169/75 (106) 93 Nasal Cannula 2.00 03/04/18 10:05 21 General Appearance: No Apparent Distress, Chronically ill Gastrointestinal: Soft Neurologic/Psychiatric: Alert, Oriented x3 Hospital Course Pt was admitted to the ICU as a transfer from [facility] for severe sepsis. She was found to have CAP and was treated with Rocephin and Azithromycin. She responded well and was discharged home in stable condition. She was tested for oxygen and did not qualify. She is to follow up with her PCP Madeline Mercado NP in 1 week to follow up this hospital stay. Labs (last 24 hrs) Laboratory Tests 03/05/18 16:18: Glucometer 189H 03/05/18 21:02: Glucometer 175H 03/06/18 05:31: Glucometer 163H 03/06/18 07:55: White Blood Count 4.4, Red Blood Count 4.32L, Hemoglobin 12.3, Hematocrit 39, Mean Corpuscular Volume 91, Mean Corpuscular Hemoglobin 28, Mean Corpuscular Hemoglobin Concent 32, Red Cell Distribution Width 14.3, Platelet Count 150, Mean Platelet Volume 13.1H, Neutrophils (%) (Auto) 58, Lymphocytes (%) (Auto) 27 , Monocytes (%) (Auto) 10, Eosinophils (%) (Auto) 6, Basophils (%) (Auto) 1, Neutrophils # (Auto) 2.6, Lymphocytes # (Auto) 1.2, Monocytes # (Auto) 0.4, Eosinophils # (Auto) 0.3, Basophils # (Auto) 0.0, Sodium Level 137, Potassium Level 4.5, Chloride Level 101, Carbon Dioxide Level 25, Anion Gap 11, Blood Urea Nitrogen 17, Creatinine 0.84, Estimat Glomerular Filtration Rate > 60, BUN/ Creatinine Ratio 20, Glucose Level 194H, Calcium Level 9.4, Corrected Calcium 10.0, Phosphorus Level 4.1, Magnesium Level 1.2L, Total Bilirubin 0.4, Aspartate Amino Transf (AST/SGOT) 22, Alanine Aminotransferase (ALT/SGPT) 38, Alkaline Phosphatase 102, Total Protein 6.3L, Albumin 3.3 Microbiology 03/04/18 Blood Culture - Preliminary, Resulted No growth 03/03/18 MRSA Screen - Final, Complete MRSA not isolated Patient resulted labs reviewed. Pending Labs Laboratory Tests 03/06/18 05:31: Glucometer 163 03/06/18 07:55: White Blood Count 4.4, Red Blood Count 4.32, Hemoglobin 12.3, Hematocrit 39, Mean Corpuscular Volume 91, Mean Corpuscular Hemoglobin 28, Mean Corpuscular Hemoglobin Concent 32, Red Cell Distribution Width 14.3, Platelet Count 150, Mean Platelet Volume 13.1, Neutrophils (%) (Auto) 58, Lymphocytes (%) (Auto) 27 , Monocytes (%) (Auto) 10, Eosinophils (%) (Auto) 6, Basophils (%) (Auto) 1, Neutrophils # (Auto) 2.6, Lymphocytes # (Auto) 1.2, Monocytes # (Auto) 0.4, Eosinophils # (Auto) 0.3, Basophils # (Auto) 0.0, Sodium Level 137, Potassium Level 4.5, Chloride Level 101, Carbon Dioxide Level 25, Anion Gap 11, Blood Urea Nitrogen 17, Creatinine 0.84, Estimat Glomerular Filtration Rate > 60, BUN/ Creatinine Ratio 20, Glucose Level 194, Calcium Level 9.4, Corrected Calcium 10.0, Phosphorus Level 4.1, Magnesium Level 1.2, Total Bilirubin 0.4, Aspartate Amino Transf (AST/SGOT) 22, Alanine Aminotransferase (ALT/SGPT) 38, Alkaline Phosphatase 102, Total Protein 6.3, Albumin 3.3 Imaging: Reviewed Imaging Films Discussion & Recommendations Discharge Planning: >30 minutes discharge planning Discharge Home Medications: Active Scripts Active Probiotic (L.acidoph & Paracasei,B.lactis) 1 Each Capsule 1 Each PO AC Keflex (Cephalexin) 500 Mg Capsule 500 Mg PO BID Azithromycin 250 Mg Tablet 500 Mg PO DAILY Reported Prilosec Otc (Omeprazole Magnesium) 20 Mg Tablet.dr 20 Mg PO DAILY Nitroglycerin 0.4 Mg Tab.subl 0.4 Mg SL PRN Multi-Vitamin Daily (Multivitamin) 1 Each Tablet 1 Each PO DAILY Magnesium (Magnesium Amino Acid Chelate) 27 Mg Tablet 27 Mg PO DAILY Tessalon Perle (Benzonatate) 100 Mg Capsule 100 Mg PO TID PRN Proair Hfa (Albuterol Sulfate) 1 Puff Puff 2 Puff IH Q4H PRN 1 PUFF = 90 MCG Acetaminophen 325 Mg/10.15 Ml Soln 325 Mg PO Q4H PRN Aspirin EC (Aspirin) 81 Mg Tablet.dr 81 Mg PO DAILY Rosuvastatin Calcium 20 Mg Tablet 20 Mg PO DAILY Metoprolol Succinate 50 Mg Tab.er.24h 50 Mg PO DAILY Loratadine 10 Mg Tablet 10 Mg PO HS Lisinopril 20 Mg Tablet 20 Mg PO BID Tradjenta (Linagliptin) 5 Mg Tablet 5 Mg PO DAILY Glimepiride 2 Mg Tablet 2 Mg PO DAILY Estrace Cream (Estradiol) 42.5 Gm Cream.appl 1 Applic VG WEEK Eliquis (Apixaban) 5 Mg Tablet 5 Mg PO BID Amitriptyline HCl 25 Mg Tablet 25 Mg PO HS PRN Alendronate Sodium 70 Mg Tablet 70 Mg PO WEEK Instructions to patient/family Please see electronic discharge instructions given to patient. Clinical Quality Measures DVT/VTE Risk/Contraindication: Risk Factor Score Per Nursin RFS Level Per Nursing on Admit: 4+=Very High Problem Qualifiers (1) CAP (community acquired pneumonia): Laterality: unspecified laterality Qualified Codes: J18.9 - Pneumonia, unspecified organism (2) CAD (coronary artery disease): Coronary Disease-Associated Artery/Lesion type: [place] artery [place] vs. transplanted heart: [place] heart Associated angina: with stable angina Qualified Codes: I25.118 - Atherosclerotic heart disease of [place] coronary artery with other forms of angina pectoris (3) Diabetic neuropathy: Diabetes mellitus type: type 2 Diabetes mellitus complication detail: diabetic polyneuropathy Qualified Codes: E11.42 - Type 2 diabetes mellitus with diabetic polyneuropathy NE BAIN MD Mar 06, 2018 10:23
[2018-03-06 11:45] VITALS: BP 137/69
== END 2018-03-06 11:45 | disposition home or self-care (01) | DRG 871 ==
LOC: ICU 23:40 → 4TH 03-04 09:44
PROVIDERS: ADMIT Family Medicine; ATTEND Family Medicine
DX: A41.9 Sepsis, unspecified organism (principal); J18.9 Pneumonia, unspecified organism; E11.42 Type 2 diabetes mellitus with diabetic polyneuropathy; I25.119 Atherosclerotic heart disease of native coronary artery with unspecified angina pectoris; J45.909 Unspecified asthma, uncomplicated; R32 Unspecified urinary incontinence; I10 Essential (primary) hypertension; L27.0 Generalized skin eruption due to drugs and medicaments taken internally; T36.95XA Adverse effect of unspecified systemic antibiotic, initial encounter; M54.9 Dorsalgia, unspecified; M19.90 Unspecified osteoarthritis, unspecified site; Z87.891 Personal history of nicotine dependence
CPT/HCPCS: 36415; 71045; 80053; 81000; 82962; 83605; 83735; 84100; 84484; 85007; 85025; 85027; 87040; 87081; 87449; 87804; 87899; 94640; 94760; 94761; 94762

== ENCOUNTER → 2018-07-08 | Outpatient (CLI) | payer MEDICARE, MEDICAID ==
[~2018-07-08] MED LIST: AC160U10 PO; ALEN70TA5 PO; AMIT25TA9 PO; APIX5TAB PO; ASPI-983 PO; AZIT250T12 PO; BENZ-13 PO; CEPH-507 PO; ESTR42.52 VG; GLIM2TAB PO; L.AC1CAP6 PO; LINA5TAB PO; LISI-552 PO; LORA10TA7 PO; MAGN27TA2 PO; METO-370 PO; MULT-974 PO; NITR0.4T42 SL; OMEP20TA33 PO; ROSU20TA31 PO; RT-ALBUINH IH
--- NOTE | 2018-07-08 15:15 | Diagnostic Imaging Report ---
INDICATION: Pain in left third finger. TIME OF EXAM: 02:51 p.m. Three views of the left third finger were obtained. Alignment is normal. Phalanges appear intact. No fractures are seen. Soft tissues are unremarkable. IMPRESSION: No acute bony abnormality is detected. Dictated by: Dictated on workstation # [id number]
== END ==
LOC: RAD FS 14:43
PROVIDERS: ATTEND Nurse Practitioner
DX: M79.645 Pain in left finger(s) (principal)
CPT/HCPCS: 73140

== ENCOUNTER 2019-03-16 16:41 | Emergency (ER) | payer MEDICARE, MEDICAID ==
[~2019-03-16] VITALS: Ht 160 cm; Wt 101.8 kg
[~2019-03-16 16:41] MED LIST changes: -GLIM2TAB PO; +GLIM2TAB2 PO; -METO-370 PO; +METO50TA7 PO; -ROSU20TA31 PO; +ROSU20TA32 PO
[2019-03-16] MEDS ORDERED: cefTRIAXone FOR IV USE 1,000 MG in WATER (STERILE) FOR INJECTION 10 ML IV ONE (17:30)
--- NOTE | 2019-03-16 17:32 | ED Lower Extremity ---
General Chief Complaint: Lower Extremity Stated Complaint: RT FOOT SWOLLEN Nursing Triage Note: Pt presents to ED via WC with pt reporting increasing swelling of right foot with noted chronic redness of bilat LLE with scaling skin. Reports swelling on and off for 2 mo, had an ultrasound done in [facility] clinic at some time and negative for DVT. Drainage noted between 4th and 5th toe. Pt reports burning and itching. Nursing Sepsis Screen: No Definite Risk (ROCK ISAAC JR, MD) History of Present Illness Date Seen by Provider: Mar 16, 2019 Time Seen by Provider: 17:27 Initial Comments Patient is here with swelling of the right foot has erythema and swelling that goes up just past the ankle associated with wheezing interior digit skin breakdown between the fourth and fifth toes somewhat between the third and fourth she had no fever no chills is associated with some pain she does have some feeling and that foot she is diabetic she is on eliquis has a heart condition hypertension hypercholesterolemia her kidneys with an intact up-to-date Onset: other (over the last week) Pain/Injury Location: left foot, left ankle Method of Injury: other (swelling redness and erythema no injury) (ROCK ISAAC JR, MD) Allergies and Home Medications Allergies Coded Allergies: Penicillins (Verified Allergy, Unknown, 03/04/18) acetaminophen (Verified Allergy, Unknown, 03/04/18) codeine (Verified Allergy, Unknown, 03/04/18) levofloxacin (Verified Allergy, Unknown, 03/04/18) meperidine (Verified Allergy, Unknown, 03/04/18) mirabegron (Verified Allergy, Unknown, 03/04/18) morphine (Verified Allergy, Unknown, 03/04/18) oxycodone (Verified Allergy, Unknown, 03/04/18) sitagliptin (Verified Allergy, Unknown, 03/04/18) Home Medications Acetaminophen 325 Mg/10.15 Ml Soln, 325 MG PO Q4H PRN for PAIN-MILD, (Reported) Albuterol Sulfate 1 Puff Puff, 2 PUFF IH Q4H PRN for WHEEZING, (Reported) 1 PUFF = 90 MCG Alendronate Sodium 70 Mg Tablet, 70 MG PO WEEK, (Reported) Amitriptyline HCl 25 Mg Tablet, 25 MG PO HS PRN for ITCHING, (Reported) Apixaban 5 Mg Tablet, 5 MG PO BID, (Reported) Aspirin 81 Mg Tablet.dr, 81 MG PO DAILY, (Reported) Azithromycin 250 Mg Tablet, 500 MG PO DAILY Prescribed by: NE BAIN on 03/06/18 1011 Benzonatate 100 Mg Capsule, 100 MG PO TID PRN for COUGH, (Reported) Cephalexin 500 Mg Capsule, 500 MG PO BID Prescribed by: NE BAIN on 03/06/18 1011 Cephalexin 500 Mg Tablet, 500 MG PO QID Prescribed by: ISHMAEL TEJEDA on 03/16/19 1828 Estradiol 42.5 Gm Cream.appl, 1 APPLIC VG WEEK, (Reported) Glimepiride 2 Mg Tablet, 2 MG PO DAILY, (Reported) L.acidoph & Paracasei,B.lactis 1 Each Capsule, 1 EACH PO AC Prescribed by: NE BAIN on 03/06/18 1011 Linagliptin 5 Mg Tablet, 5 MG PO DAILY, (Reported) Lisinopril 20 Mg Tablet, 20 MG PO BID, (Reported) Loratadine 10 Mg Tablet, 10 MG PO HS, (Reported) Magnesium Amino Acid Chelate 27 Mg Tablet, 27 MG PO DAILY, (Reported) Metoprolol Succinate 50 Mg Tab.er.24h, 50 MG PO DAILY, (Reported) Multivitamin 1 Each Tablet, 1 EACH PO DAILY, (Reported) Nitroglycerin 0.4 Mg Tab.subl, 0.4 MG SL for CHEST PAIN, (Reported) Omeprazole Magnesium 20 Mg Tablet.dr, 20 MG PO DAILY, (Reported) Rosuvastatin Calcium 20 Mg Tablet, 20 MG PO DAILY, (Reported) Patient Home Medication List Home Medication List Reviewed: Yes (ROCK ISAAC JR, MD) Review of Systems Constitutional: No chills, No fever EENTM: No ear pain, No throat pain Respiratory: No cough, No dyspnea on exertion, No wheezing Cardiovascular: No chest pain; edema Gastrointestinal: No abdominal pain, No diarrhea, No nausea, No vomiting Genitourinary: No dysuria, No frequency Musculoskeletal: No gout; joint pain, joint swelling Skin: change in color (ROCK ISAAC JR, MD) Past Ryqdjmb-Dhqpjx-Psxcqj Hx Past Med/Social Hx: Reviewed Nursing Past Med/Soc Hx (ROCK ISAAC JR, MD) Patient Social History Alcohol Use: Denies Use Recreational Drug Use: No Smoking Status: Former Smoker Type Used: Cigarettes Former Smoker, Quit: Jul 22, 1992 2nd Hand Smoke Exposure: No Recent Foreign Travel: No Contact w/Someone Who Travel: No Recent Infectious Disease Expo: No Recent Hopitalizations: No (ROCK ISAAC JR, MD) Immunizations Up To Date Tetanus Booster (TDap): Unknown Date of Pneumonia Vaccine: Dec 12, 2017 Date of Influenza Vaccine: Feb 11, 2019 (ROCK ISAAC JR, MD) Seasonal Allergies Seasonal Allergies: No (ROCK ISAAC JR, MD) Past Medical History Surgeries: Yes Respiratory: Yes Asthma Currently Using CPAP: No Currently Using BIPAP: No Cardiac: Yes Coronary Artery Disease, Hypertension Neurological: Yes Neuropathy Genitourinary: Yes (INCONT) UTI-Chronic Gastrointestinal: No Musculoskeletal: Yes (STENOSIS) Arthritis, Chronic Back Pain Endocrine: Yes HEENT: No Cancer: Yes Skin Did You Recieve Any Treatments: Yes What Type of Treatment Did You: Surgical Intervention Psychosocial: No Integumentary: No Blood Disorders: No (ROCK ISAAC JR, MD) Family Medical History Cardiovascular disease G8 BROTHER Completed stroke G8 SISTER Diabetes mellitus 19 MOTHER G8 BROTHER Fibromyalgia DAUGHTER Myocardial infarction 19 FATHER G8 BROTHER Physical Exam Vital Signs Vital Signs - First Documented 03/16/19 16:55 Temp 36.7 Pulse 86 Resp 16 B/P (MAP) 160/74 (102) Pulse Ox 97 O2 Delivery Room Air (ISHMAEL TEJEDA DO) Vital Signs Capillary Refill : Less Than 3 Seconds (ROCK ISAAC JR, MD) Height, Weight, BMI Height: 5'63.00" Weight: 219lbs. 1.0oz. 99.684364xy; 39.00 BMI Method: General Appearance: WD/WN, mild distress HEENT: PERRL/EOMI, normal ENT inspection, TMs normal Neck: full range of motion, supple Cardiovascular: regular rate, rhythm, no murmur Respiratory: lungs clear, normal breath sounds Gastrointestinal: normal bowel sounds, non tender Hips: bilateral hip non-tender Legs: bilateral leg non-tender, bilateral leg swelling Knees: bilateral knee non-tender Ankles: left ankle deformity, left ankle limited range of motion, left ankle pain, left ankle soft tissue tenderness; right ankle swelling Feet: right foot non-tender; left foot soft tissue tenderness, left foot swelling Neurologic/Tendon: sensory deficit (lower extremity) Skin: other (skin shows erythema and scaling about the lower extremity right gr eater than left extending up past the ankle right side shows marked increase in erythema tenderness left side less erythema more vascular congestion) (ROCK ISAAC JR, MD) Progress/Results/Core Measures Results/Orders Lab Results Laboratory Tests Test 03/16/19 17:40 Range/Units White Blood Count 7.1 4.3-11.0 10^3/uL Red Blood Count 4.65 4.35-5.85 10^6/uL Hemoglobin 13.0 11.5-16.0 G/DL Hematocrit 42 35-52 % Mean Corpuscular Volume 91 80-99 FL Mean Corpuscular Hemoglobin 28 25-34 PG Mean Corpuscular Hemoglobin Concent 31 L 32-36 G/DL Red Cell Distribution Width 14.3 10.0-14.5 % Platelet Count 193 130-400 10^3/uL Mean Platelet Volume 12.7 H 7.4-10.4 FL Neutrophils (%) (Auto) 70 42-75 % Lymphocytes (%) (Auto) 16 12-44 % Monocytes (%) (Auto) 9 0-12 % Eosinophils (%) (Auto) 3 0-10 % Basophils (%) (Auto) 1 0-10 % Neutrophils # (Auto) 5.0 1.8-7.8 X 10^3 Lymphocytes # (Auto) 1.2 1.0-4.0 X 10^3 Monocytes # (Auto) 0.6 0.0-1.0 X 10^3 Eosinophils # (Auto) 0.2 0.0-0.3 10^3/uL Basophils # (Auto) 0.1 0.0-0.1 10^3/uL Sodium Level 136 135-145 MMOL/L Potassium Level 5.1 H 3.6-5.0 MMOL/L Chloride Level 97 L 98-107 MMOL/L Carbon Dioxide Level 28 21-32 MMOL/L Anion Gap 11 5-14 MMOL/L Blood Urea Nitrogen 18 7-18 MG/DL Creatinine 0.93 0.60-1.30 MG/DL Estimat Glomerular Filtration Rate 58 BUN/Creatinine Ratio 19 Glucose Level 252 H 70-105 MG/DL Calcium Level 9.3 8.5-10.1 MG/DL Corrected Calcium 9.2 8.5-10.1 MG/DL Total Bilirubin 0.2 0.1-1.0 MG/DL Aspartate Amino Transf (AST/SGOT) 28 5-34 U/L Alanine Aminotransferase (ALT/SGPT) 23 0-55 U/L Alkaline Phosphatase 110 40-136 U/L Total Protein 7.5 6.4-8.2 GM/DL Albumin 4.1 3.2-4.5 GM/DL (TEJEDABERTINISHMAELDIANE Wise DO) Medications Given in ED Current Medications Medications Dose Ordered Sig/Go Route Start Time Stop Time Status Last Admin Dose Admin Ceftriaxone Sodium 1000 mg/ Sterile Water 10 ml @ 200 mls/hr ONCE ONCE IV 03/16/19 17:30 03/16/19 17:32 DC 03/16/19 17:52 200 MLS/HR (ILEANAISHMAEL Frandy BURCH) Vital Signs/I&O 03/16/19 16:55 Temp 36.7 Pulse 86 Resp 16 B/P (MAP) 160/74 (102) Pulse Ox 97 O2 Delivery Room Air (TEJEDAPADMINILiat Wise DO) Blood Pressure Mean: 102 POS Departure Impression Primary Impression: Cellulitis of foot, right Disposition: HOME, SELF-CARE Condition: Stable Departure-Patient Inst. Referrals: [facility] (PCP/Family) Primary Care Physician Patient Instructions: Cellulitis (Skin Infection), Adult (DC) Add. Discharge Instructions: Follow-up with Dr. Mercado by Thursday The Emergency Department focuses on treating and ruling out life-threatening diseases. Whenever possible, a diagnosis is given. However most patient's are given an impression based on the history, physical exam, and workup during their brief time in the ER. Information about probable diagnosis and other e ducational material has been provided. Please take the time to read and understand this information. It is very important that he follow up with a doctor as discussed during her visit today. Failure to adhere to your follow-up instructions may result in s evere disability, injury or so please make sure to keep your appointments. Please keep in mind the emergency department is not designed to be your primary care or "family doctor" and not urgent issues are best evaluated by an outpatient physician All discharge instructions reviewed with patient and/or family. Voiced understanding. Scripts Cephalexin (Cephalexin) 500 Mg Tablet 500 MG PO QID, #20 TAB 0 Refills Prov: ISHMAEL TEJEDA DO 03/16/19 ROCK ISAAC JR, MD Mar 16, 2019 17:32 ISHMAEL IVAN DO Mar 16, 2019 18:28 POS
[2019-03-16 17:55] LABS: HEMATOCRIT 42 % (35-52); MEAN CORPUSCULAR HEMOGLOBIN 28 PG (25-34); MEAN CORPUSCULAR VOLUME 91 FL (80-99); WHITE BLOOD COUNT 7.1 10^3/uL (4.3-11.0)
[2019-03-16 17:56] LABS: BASOPHILS # (AUTO) 0.1 10^3/uL (0.0-0.1); BASOPHILS % (AUTO) 1 % (0-10); EOSINOPHILS # (AUTO) 0.2 10^3/uL (0.0-0.3); EOSINOPHILS % (AUTO) 3 % (0-10); LYMPHOCYTES # (AUTO) 1.2 X 10^3 (1.0-4.0); LYMPHOCYTES % (AUTO) 16 % (12-44); MEAN CORPUSCULAR HGB CONC 31 G/DL (32-36); MEAN PLATELET VOLUME 12.7 FL (7.4-10.4); MONOCYTES # (AUTO) 0.6 X 10^3 (0.0-1.0); MONOCYTES % (AUTO) 9 % (0-12); NEUTROPHILS % (AUTO) 70 % (42-75); PLATELET COUNT 193 10^3/uL (130-400); RED CELL DISTRIBUTION WIDTH 14.3 % (10.0-14.5)
[2019-03-16 18:13] LABS: BILIRUBIN,TOTAL 0.2 MG/DL (0.1-1.0); CALCIUM 9.3 MG/DL (8.5-10.1); CREATININE SERUM 0.93 MG/DL (0.60-1.30); POTASSIUM 5.1 MMOL/L (3.6-5.0)
[2019-03-16 18:14] LABS: ALBUMIN 4.1 GM/DL (3.2-4.5); TOTAL PROTEIN 7.5 GM/DL (6.4-8.2)
[2019-03-16] MEDS ORDERED: CEPH500T PO (18:28)
[2019-03-16 18:30] LABS: BAND NEUTROPHILS 2 %; BASOPHILS % (MANUAL) 0 %; EOSINOPHILS % (MANUAL) 3 %; LYMPHOCYTES % (MANUAL) 11 %; MONOCYTES % (MANUAL) 7 %; NEUTROPHILS % (MANUAL) 77 %; RBC MORPH NORMAL
[2019-03-16 18:35] VITALS: BP 156/69
--- OUTSIDE RECORDS SUMMARY | 2019-04-11 15:43 | XMS REPORT ---
Author Author Chanda CADENA Organization [facility] Address [address] [place] [address] Care Team Providers Care Under Water Assistant Name Role Phone MARGUERITE CADENA Unavailable PROBLEMS Type Condition ICD9-CM Code LCE02-YQ Code Onset Dates Condition S tatus SNOMED Code Problem Osteoporosis M81.0 Apr, Active 6485 9006 Problem Back pain M54.9 Jul, Active 1444588 05 Problem CAD (coronary artery disease) I25.10 Dec, 10 Active 92994928 Problem Gastritis K29.70 Jan, Active 4589356 Problem Acute cystitis without hematuria N30.00 Nov, Active 65918596 Problem Asthma J45.909 Mar, Active 3170885 01 Problem Paroxysmal atrial fibrillation I48.0 11 Sep, 2 015 Active 497595531 Problem Rotator cuff tear, left M75.102 August, Act david [id number] Problem Chronic atrial fibrillation I48.2 Nov, Active 515900073 Problem Benign hypertension I10 16 Sep, 2015 Active 54576732 Problem Rotator cuff tendinitis M75.80 August, Act david 476094181 Problem SIRS (systemic inflammatory response syndrome) R65.10 Nov, Active 113863370 Problem 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 August Active 058369684 Problem Type 2 diabetes mellitus without complications E11 .9 Active 765667850 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 August, Active 320181234 Problem Restrictive lung disease J98.4 Apr, Ac tive 04048611 Problem Essential (primary) hypertension I10 Active 39317957 Problem Hypomagnesemia E83.42 Oct, Active 19 8835639 Problem Biceps tendonitis M75.20 August, Active 50172017 Problem Spinal stenosis M48.00 Apr, Active 7 1934843 Problem 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 August Active 5863965754026959 Problem Trigger finger of left thumb M65.312 Oct, 201 6 Active 6105741 Problem Type 2 diabetes mellitus E11.9 Jan, Ac tive 90472712 Problem Athscl heart disease of [place] coronary artery w/o ang pct rs I25.10 Active [id number] ALLERGIES No Information ENCOUNTERS Encounter Location Date Diagnosis [address] [id number] Sep, [place] [id number] [facility] [id number] [address] [place] [phone] Sep, [address] [address] Sep, Benign hypertension I10 ; Type 2 diabete s mellitus E11.9 ; Edema, unspecified type R60.9 and Morbid obesity E66.[address] [address] Sep, [address] [address] Sep, Type 2 diabetes mellitus without complic ations E11.9 ; Essential (primary) hypertension I10 and Hypomagnesemia E83.[address] [address] Sep, Leg swelling M79.89 and Medication monit oring encounter Z51.81 [place] [address] [place] [id number] [address] [place] [phone] August, Type 2 diabetes mellitus E11 .[address] [address] Jul, [place] [address] [facility] [id number] [address] [place] [phone] Jul, [address] [address] Jun, Type 2 diabetes mellitus without complic ations E11.9 ; Essential (primary) hypertension I10 and Hypomagnesemia E83.[address] [address] Jun, Athscl heart disease of [place] coronary artery w/o ang pctrs I25.10 ; Hypomagnesemia E83.42 ; Essential (primary) hypertension I10 and Type 2 diabetes mellitus without complications E11.[address] [address] Jun, Leg swelling M79.89 and Pain of left leg M79.[address] [address] Jun, Leg swelling M79.89 and Pain of left leg M79.[address] [address] Jun, Leg swelling M79.89 ; Pain in right leg M79.604 and Pain of left leg M79.[address] [address] Jun, Athscl heart disease of [place] coronary artery w/o ang pctrs I25.10 ; Hypomagnesemia E83.42 ; Essential (primary) hypertension I10 ; Type 2 diabetes mellitus without complications E11.9 ; Trigger index finger of left hand M65.322 ; Leg swelling M79.89 ; Pain in right leg M79.604 and Pain of left leg M79.[address] [address] Jun, [facility] [address] [id number] [address] [place] [phone] Mar, [facility] [address] [id number] [address] [place] [phone] Mar, [facility] [address] [id number] [address] [place] [phone] Mar, [facility] ([facility] [address] [id number] [address] [place] [phone] Feb, [facility] [address] [id number] [address] [place] [phone] Feb, [facility] ([facility] [address] [id number] [address] [place] [phone] Feb, [facility] ([facility] [address] [facility] [id number] [address] [place] [phone] Feb, [facility] ([facility] [address] [facility] [id number] [address] [place] [phone] Nov, IMMUNIZATIONS No Known Immunizations SOCIAL HISTORY Never Assessed REASON FOR VISIT PLAN OF CARE VITAL SIGNS MEDICATIONS Unknown Medications RESULTS No Results PROCEDURES No Known procedures INSTRUCTIONS MEDICATIONS ADMINISTERED No Known Medications
--- OUTSIDE RECORDS SUMMARY | 2019-04-11 15:43 | XMS REPORT | Continuity of Care Document ---
Author Organization Unknown Address Unknown Phone Unavailable Allergies There is no data. Medications There is no data. Problems There is no data. Procedures There is no data. Results Test Result Range A1C - 07/01/18 00:00 HEMOGLOBIN A1c 9.1 % of total Hgb <5.7 CMP - 09/28/18 10:38 GLUCOSE 248 mg/dL 65-99 UREA NITROGEN (BUN) 21 mg/dL 7-25 CREATININE 0.98 mg/dL 0.60-0.88 eGFR NON-AFR. MALAWIAN 54 mL/min/1.73m2 > OR = 60 eGFR 63 mL/min/1.73m2 > OR = 60 BUN/CREATININE RATIO 21 (calc) 6-22 SODIUM 138 mmol/L 135-146 POTASSIUM 4.4 mmol/L 3.5-5.3 CHLORIDE 101 mmol/L 98-110 CARBON DIOXIDE 28 mmol/L 20-32 CALCIUM 9.6 mg/dL 8.6-10.4 PROTEIN, TOTAL 6.5 g/dL 6.1-8.1 ALBUMIN 3.9 g/dL 3.6-5.1 GLOBULIN 2.6 g/dL (calc) 1.9-3.7 ALBUMIN/GLOBULIN RATIO 1.5 (calc) 1.0-2. 5 BILIRUBIN, TOTAL 0.4 mg/dL 0.2-1.2 ALKALINE PHOSPHATASE 101 U/L 33-130 AST 21 U/L 10-35 ALT 22 U/L 6-29 MAGNESIUM SERUM - 09/28/18 10:38 MAGNESIUM 1.4 mg/dL 1.5-2.5 A1C - 09/28/18 10:38 HEMOGLOBIN A1c 9.3 % of total Hgb <5.7 [facility] - 03/17/19 09:43 GLUCOSE 164 mg/dL 65-99 UREA NITROGEN (BUN) 18 mg/dL 7-25 CREATININE 0.84 mg/dL 0.60-0.88 eGFR NON-AFR. [place] 65 mL/min/1.73m2 > OR = 60 eGFR 76 mL/min/1.73m2 > OR = 60 BUN/CREATININE RATIO NOT APPLICABLE (calc) 6-22 SODIUM 140 mmol/L 135-146 POTASSIUM 4.6 mmol/L 3.5-5.3 CHLORIDE 101 mmol/L 98-110 CARBON DIOXIDE 28 mmol/L 20-32 CALCIUM 9.3 mg/dL 8.6-10.4 PROTEIN, TOTAL 6.3 g/dL 6.1-8.1 ALBUMIN 3.8 g/dL 3.6-5.1 GLOBULIN 2.5 g/dL (calc) 1.9-3.7 ALBUMIN/GLOBULIN RATIO 1.5 (calc) 1.0-2. 5 BILIRUBIN, TOTAL 0.3 mg/dL 0.2-1.2 ALKALINE PHOSPHATASE 104 U/L 33-130 AST 18 U/L 10-35 ALT 20 U/L 6-29 Encounters ACCT No. Visit Date/Time Discharge Status Pt. Type Provider Facility Loc./Unit Complaint [id number] 02/24/2019 10:20:00 02/24/2019 23:59:5 9 [facility] Outpatient MARGUERITE CADENA [facility] [id number] 03/17/2019 08:30:00 Document Registration [id number] 09/28/2018 10:45:00 Document Registration [id number] 07/01/2018 11:15:00 Document Registration
--- OUTSIDE RECORDS SUMMARY | 2019-04-11 15:43 | XMS REPORT ---
Author Author Chanda CADENA Organization [facility] Address [address] [place] [address] Care Team Providers Care Accounts Receivable Administrator Name Role Phone MARGUERITE CADENA Unavailable PROBLEMS Type Condition ICD9-CM Code [id number] Code Onset Dates Condition S tatus SNOMED Code Problem Osteoporosis M81.0 Apr, Active 6485 9006 Problem Back pain M54.9 Jul, Active 1814668 05 Problem CAD (coronary artery disease) I25.10 Dec, 10 Active 32811016 Problem Gastritis K29.70 Jan, Active 5949414 Problem Acute cystitis without hematuria N30.00 Nov, Active 47230797 Problem Asthma J45.909 Mar, Active 7055275 01 Problem Paroxysmal atrial fibrillation I48.0 11 Sep, 2 015 Active 720642233 Problem Rotator cuff tear, left M75.102 August, Act david [id number] Problem Chronic atrial fibrillation I48.2 Nov, Active 429786241 Problem Benign hypertension I10 16 Sep, 2015 Active 87712653 Problem Rotator cuff tendinitis M75.80 August, Act david 483098172 Problem SIRS (systemic inflammatory response syndrome) R65.10 Nov, Active 418908076 Problem 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 August Active 090384434 Problem Type 2 diabetes mellitus without complications E11 .9 Active 742886430 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 August, Active 734070134 Problem Restrictive lung disease J98.4 Apr, Ac tive 11205842 Problem Essential (primary) hypertension I10 Active 14865703 Problem Hypomagnesemia E83.42 Oct, Active 19 4605006 Problem Biceps tendonitis M75.20 August, Active 44052776 Problem Spinal stenosis M48.00 Apr, Active 7 7547830 Problem 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 August Active 6219384009048698 Problem Trigger finger of left thumb M65.312 Oct, 201 6 Active 7309521 Problem Type 2 diabetes mellitus E11.9 Jan, Ac tive 05372029 Problem [place]scl heart disease [place] coronary artery w/o ang pct rs I25.10 Active [id number] ALLERGIES No Information ENCOUNTERS Encounter Location Date Diagnosis [address] [id number] Sep, [place] [id number] [facility] [id number] [address] [place] [id number] Sep, [address] [address] Sep, Benign hypertension I10 ; Type 2 diabete s mellitus E11.9 ; Edema, unspecified type R60.9 and Morbid obesity E66.[address] [address] Sep, [address] [address] Sep, Type 2 diabetes mellitus without complic ations E11.9 ; Essential (primary) hypertension I10 and Hypomagnesemia E83.[address] [address] Sep, Leg swelling M79.89 and Medication monit oring encounter Z51.81 [place] [address] [place] [id number] [address] [place] [phone] August, Type 2 diabetes mellitus E11 .[address] [address] Jul, [place] [address] [facility] [id number] [address] [place] [id number] Jul, [address] [address] Jun, Type 2 diabetes mellitus without complic ations E11.9 ; Essential (primary) hypertension I10 and Hypomagnesemia E83.[address] [address] Jun, Athscl heart disease of [place] coronary artery w/o ang pctrs I25.10 ; Hypomagnesemia E83.42 ; Essential (primary) hypertension I10 and Type 2 diabetes mellitus without complications E11.[address] [address] Jun, Leg swelling M79.89 and Pain of left leg M79.[address] [address] Jun, Leg swelling M79.89 and Pain of left leg M79.[address] [address] Jun, Leg swelling M79.89 ; Pain in right leg M79.604 and Pain of left leg M79.[address] [address] Jun, Athscl heart disease of [place] coronary artery w/o ang pctrs I25.10 ; Hypomagnesemia E83.42 ; Essential (primary) hypertension I10 ; Type 2 diabetes mellitus without complications E11.9 ; Trigger index finger of left hand M65.322 ; Leg swelling M79.89 ; Pain in right leg M79.604 and Pain of left leg M79.[address] [address] Jun, [facility] [address] [id number] [address] [place] [id number] Mar, [facility] [address] [id number] [address] [place] [phone] Mar, [facility] [address] [id number] [address] [place] [phone] Mar, [facility] [address] [id number] [address] [place] [phone] Feb, [facility] [address] [id number] [address] [place] [id number] Feb, [facility] [address] [id number] [address] [place] [phone] Feb, [facility] [address] [facility] [id number] [address] [place] [phone] Feb, [facility] [address] [facility] [id number] [address] [place] [phone] Nov, IMMUNIZATIONS No Known Immunizations SOCIAL HISTORY Never Assessed REASON FOR VISIT Leg swelling PLAN OF CARE VITAL SIGNS MEDICATIONS Unknown Medications RESULTS No Results PROCEDURES No Known procedures INSTRUCTIONS MEDICATIONS ADMINISTERED No Known Medications
== END 2019-03-16 18:35 | disposition home or self-care (01) ==
LOC: EDUNIT# 16:41 → ER FS 16:43
DX: L03.115 Cellulitis of right lower limb (principal); I10 Essential (primary) hypertension; J45.909 Unspecified asthma, uncomplicated; I25.10 Atherosclerotic heart disease of native coronary artery without angina pectoris; G62.9 Polyneuropathy, unspecified; Z87.440 Personal history of urinary (tract) infections; Z85.828 Personal history of other malignant neoplasm of skin; Z88.0 Allergy status to penicillin; Z88.6 Allergy status to analgesic agent; Z88.5 Allergy status to narcotic agent; Z88.1 Allergy status to other antibiotic agents; Z88.8 Allergy status to other drugs, medicaments and biological substances; Z79.01 Long term (current) use of anticoagulants; Z79.82 Long term (current) use of aspirin; Z87.891 Personal history of nicotine dependence; Z82.49 Family history of ischemic heart disease and other diseases of the circulatory system
CPT/HCPCS: 36415; 80053; 85007; 85027; 96374

== ENCOUNTER → 2019-06-01 | Outpatient (CLI) | payer MEDICARE, MEDICAID ==
[~2019-06-01] MED LIST changes: +CEPH500T PO
--- NOTE | 2019-06-01 10:36 | Diagnostic Imaging Report ---
INDICATION: Cough and wheezing. PA and lateral chest. FINDINGS: Heart size and pulmonary vascularity are normal. Lungs are clear. There are no effusions or pneumothoraces. IMPRESSION: Negative chest. Dictated by: Dictated on workstation # [id number]
== END ==
LOC: RAD FS 10:13
PROVIDERS: ATTEND Nurse Practitioner Family
DX: R06.2 Wheezing (principal); R05 Cough; Z87.01 Personal history of pneumonia (recurrent)
CPT/HCPCS: 71046

== ENCOUNTER → 2019-06-15 | Outpatient (CLI) | payer MEDICARE, MEDICAID ==
[~2019-06-15] MED LIST changes: -GLIM2TAB2 PO; +GLIM2TAB4 PO
--- NOTE | 2019-06-15 10:31 | Diagnostic Imaging Report ---
INDICATION: Recurrent pneumonia. TECHNIQUE: Two view chest 10:16 AM. CORRELATION STUDY: 06/01/2019, 03/04/2018 FINDINGS: Heart size is borderline enlarged. Vasculature slightly increased but without evidence for overt failure. No suggestion for consolidating infiltrates. Slight increased density in the right suprahilar region may reflect area of scarring. No appreciable effusion. Accentuated thoracic kyphosis. IMPRESSION: 1. Borderline heart size and vasculature. 2. Likely chronic changes about the lung parenchyma. Density of the right lung apex may reflect area of scarring. However, given symptoms, and no definitive identifiable source, if further imaging evaluation is desired, CT imaging would be recommended. Dictated by: Dictated on workstation # [id number]
== END ==
LOC: RAD FS 10:05
PROVIDERS: ATTEND Nurse Practitioner Family
DX: J98.4 Other disorders of lung (principal); Z87.01 Personal history of pneumonia (recurrent)
CPT/HCPCS: 71046

== ENCOUNTER → 2019-06-21 | Outpatient (CLI) | payer MEDICARE, MEDICAID ==
[~2019-06-21] MED LIST changes: +CATHETER FLUSH 10 ML SYR IV PRN; +HOLD METFORMIN - RECEIVED CONTRAST 20 ML VIAL IV SCH; +IOHEXOL 350 MG/ML 100 ML (OMNIPAQUE 350) VIAL IV ONE; +NS 100 ML (IVPB) BAG IV ONE
[2019-06-21 11:52] LABS: BUN/CREATININE RATIO 25; CREATININE SERUM 0.77 MG/DL (0.60-1.30); GFR ESTIMATED > 60
--- NOTE | 2019-06-21 14:42 | Diagnostic Imaging Report ---
CT CHEST W TECHNIQUE: Multiple contiguous axial images were obtained through the chest with the use of intravenous contrast. All CT scans use one or more of the following dose optimizing techniques: automated exposure control, MA and/or KvP adjustment based on a patient size and exam type, or iterative reconstruction. INDICATION: Recurrent pneumonia. COMPARISON: Chest radiograph of 06/15/2019. FINDINGS: Lungs and airway: No endoluminal nodule within the trachea. Moderate centrilobular emphysema is present. No pulmonary mass or consolidation. No pulmonary fibrosis or bronchiectasis. There are few scattered calcified pulmonary nodules compatible with old granulomatous infection. No indeterminate pulmonary nodules that would be suspicious for neoplasm. Linear atelectasis is present in the lingula. Pleura: No pleural effusion or pneumothorax. Heart and mediastinum: Thyroid is normal. Mildly enlarged right supraclavicular lymph node measures 1.3 cm. There are numerous borderline enlarged mediastinal lymph nodes with the largest being a lower left pretracheal lymph node measuring 0.9 cm. No hilar lymphadenopathy. No juxtaphrenic lymphadenopathy. Heart is enlarged without pericardial effusion. No pulmonary emboli. Normal caliber thoracic aorta. Upper abdomen: No acute or concerning abnormality in the upper abdomen. Musculoskeletal: Age-indeterminate fracture involving superior endplate of T11. There is buckling of the posterior cortex suggesting a two column injury. IMPRESSION: 1. No pneumonia or pulmonary fibrosis. 2. No pulmonary mass or nodule that would suggest lung cancer. 3. Age-indeterminate superior endplate fracture of T11. If there is lower thoracic spine pain, MRI of the thoracic spine could be performed to assess for bone marrow edema, as deemed clinically indicated. Dictated by: Dictated on workstation # [id number]
== END ==
LOC: LAB FS 10:58
PROVIDERS: ATTEND Nurse Practitioner Family
DX: J18.9 Pneumonia, unspecified organism (principal); S22.088A Other fracture of T11-T12 vertebra, initial encounter for closed fracture
CPT/HCPCS: 36415; 71260; 82565; 84520

== ENCOUNTER → 2019-06-23 | Outpatient (CLI) | payer MEDICARE, MEDICAID ==
[~2019-06-23] MED LIST changes: -CATHETER FLUSH 10 ML SYR IV PRN; -HOLD METFORMIN - RECEIVED CONTRAST 20 ML VIAL IV SCH; -IOHEXOL 350 MG/ML 100 ML (OMNIPAQUE 350) VIAL IV ONE; -NS 100 ML (IVPB) BAG IV ONE
--- NOTE | 2019-06-23 14:37 | Diagnostic Imaging Report ---
CLINICAL HISTORY: Low back pain for one week. No known injury. COMPARISON: None. TECHNIQUE: Six views of the lumbar spine. FINDINGS: There is no acute fracture or dislocation of the lumbar spine. There is slight right convexity curvature of the lumbar spine. There is generalized osteopenia. Mild degenerative changes are present in the lumbar spine with marginal osteophytes and facet hypertrophy. These are greatest at the L5-S1 level. There is calcified aortic and iliac atherosclerotic plaque. Soft tissues of the lumbar spine are unremarkable. IMPRESSION: 1. No acute fracture or dislocation in the lumbar spine. 2. Generalized osteopenia. Dictated by: Dictated on workstation # [id number]
== END ==
LOC: RAD FS 12:00
PROVIDERS: ATTEND Nurse Practitioner Family
DX: M85.88 Other specified disorders of bone density and structure, other site (principal); M54.5 Low back pain
CPT/HCPCS: 72110

== ENCOUNTER → 2019-09-23 | Outpatient (CLI) | payer MEDICARE, MEDICAID ==
[~2019-09-23] MED LIST changes: +RT-ALBUTEROL SULF 2.5 MG/3 ML PRE-MIX VIAL INH ONE
[2019-09-23 15:49] LABS: ABG BASE EXCESS 4.3 MMOL/L (-2.5-2.5); ABG OXYGEN SATURATION 94 % (94-100); ABG PCO2 51 MMHG (35-45); ABG PH 7.37 (7.37-7.43); ABG PO2 73 MMHG (79-93); ABG TCO2 30.8 MMOL/L (21.0-31.0)
[2019-09-23 15:50] LABS: ALLENS TEST YES-POS; INSPIRED O2 RA; PATIENT TEMP 36.8; VENTILATOR NO
== END ==
LOC: RT 14:42
PROVIDERS: ATTEND Nurse Practitioner Family
DX: J98.4 Other disorders of lung (principal); R06.00 Dyspnea, unspecified; Z87.891 Personal history of nicotine dependence
CPT/HCPCS: 36600; 82805; 94060; 94729

== ENCOUNTER 2020-05-30 21:02 | Emergency (ER) | payer MEDICARE, MEDICAID ==
[~2020-05-30] VITALS: Ht 160 cm; Wt 101.4 kg
[~2020-05-30 21:02] MED LIST changes: -ALEN70TA5 PO; +ALEN70TA80 PO; +ASPI-1238 PO; -ASPI-983 PO; -LISI-552 PO; +LISI20TA26 PO; -RT-ALBUTEROL SULF 2.5 MG/3 ML PRE-MIX VIAL INH ONE
[2020-05-30] MEDS ORDERED: NS IV 1000 ML 1,000 ML IV STA (21:26)
--- NOTE | 2020-05-30 21:34 | ED General ---
General Chief Complaint: Abdominal/GI Problems Stated Complaint: WEAKNESS Nursing Triage Note: pt states she became nauseated tonight and had 1 episode of emesis, pt brought in per ems with reports pt fell this am onto bilateral knees and struck forehead on floor, while being picked up pt struck posterior head, no loc, mentation and mental status has been normal since Nursing Sepsis Screen: No Definite Risk Source of Information: Patient, EMS History of Present Illness Date Seen by Provider: May 30, 2020 Time Seen by Provider: 21:02 Initial Comments 84 yo female presenting by EMS from home with complaint of nausea and 1 episode of emesis. She had a fall to her knees this morning and hit her forehead and then the back of her head. She has redness to her left forehead from where she struck her head. She has not had any loss of consciousness. She denies any change in her vision or drainage from her nose or ears. She states that her knees always have pain and have been more painful since the fall. She has been able to walk throughout the day. She only developed some nausea this evening and it is doing better since she vomited. She has been exposed to her daughter who has Covid at home. She has a history of COPD and asthma and always feels short of breath but does not feel any more short of breath than usual. She denies feeling dizzy or lightheaded. She has been having pain with urination but has not been able to get in to be seen to have her urine tested for infection. She has some chronic loose stools that are no different than normal. Allergies and Home Medications Allergies Coded Allergies: Penicillins (Verified Allergy, Unknown, 03/04/18) acetaminophen (Verified Allergy, Unknown, 03/04/18) codeine (Verified Allergy, Unknown, 03/04/18) levofloxacin (Verified Allergy, Unknown, 03/04/18) meperidine (Verified Allergy, Unknown, 03/04/18) mirabegron (Verified Allergy, Unknown, 03/04/18) morphine (Verified Allergy, Unknown, 03/04/18) oxycodone (Verified Allergy, Unknown, 03/04/18) sitagliptin (Verified Allergy, Unknown, 03/04/18) Home Medications Acetaminophen 325 Mg/10.15 Ml Soln, 325 MG PO Q4H PRN for PAIN-MILD, (Reported) Albuterol Sulfate 1 Puff Puff, 2 PUFF IH Q4H PRN for WHEEZING, (Reported) 1 PUFF = 90 MCG Alendronate Sodium 70 Mg Tablet, 70 MG PO WEEK, (Reported) Amitriptyline HCl 25 Mg Tablet, 25 MG PO HS PRN for ITCHING, (Reported) Apixaban 5 Mg Tablet, 5 MG PO BID, (Reported) Aspirin 81 Mg Tablet.dr, 81 MG PO DAILY, (Reported) Azithromycin 250 Mg Tablet, 500 MG PO DAILY Prescribed by: NE BAIN on 03/06/18 1011 Benzonatate 100 Mg Capsule, 100 MG PO TID PRN for COUGH, (Reported) Cephalexin 500 Mg Capsule, 500 MG PO BID Prescribed by: NE BAIN on 03/06/18 1011 Cephalexin 500 Mg Tablet, 500 MG PO QID Prescribed by: ISHMAEL TEJEDA on 03/16/19 182 Cephalexin 500 Mg Tablet, 500 MG PO TID Prescribed by: SABRINA CARUSO on 05/30/202217 Estradiol 42.5 Gm Cream.appl, 1 APPLIC VG WEEK, (Reported) Glimepiride 2 Mg Tablet, 2 MG PO DAILY, (Reported) L.acidoph & Paracasei,B.lactis 1 Each Capsule, 1 EACH PO AC Prescribed by: NE BAIN on 03/06/18 1011 Linagliptin 5 Mg Tablet, 5 MG PO DAILY, (Reported) Lisinopril 20 Mg Tablet, 20 MG PO BID, (Reported) Loratadine 10 Mg Tablet, 10 MG PO HS, (Reported) Magnesium Amino Acid Chelate 27 Mg Tablet, 27 MG PO DAILY, (Reported) Metoprolol Succinate 50 Mg Tab.er.24h, 50 MG PO DAILY, (Reported) Multivitamin 1 Each Tablet, 1 EACH PO DAILY, (Reported) Nitroglycerin 0.4 Mg Tab.subl, 0.4 MG SL for CHEST PAIN, (Reported) Omeprazole Magnesium 20 Mg Tablet.dr, 20 MG PO DAILY, (Reported) Ondansetron 4 Mg Tab.rapdis, 4 MG PO Q6H PRN for NAUSEA/VOMITING Prescribed by: SABRINA CARUSO on 05/30/202217 Rosuvastatin Calcium 20 Mg Tablet, 20 MG PO DAILY, (Reported) Patient Home Medication List Home Medication List Reviewed: Yes Review of Systems Review of Systems Constitutional: No chills, No dizziness, No fever; malaise EENTM: No ear discharge, No ear pain, No blurred vision, No double vision, No vision loss, No epistaxis, No nose congestion Respiratory: cough (chronic, mild); No hemoptysis; short of breath (chronic and no worse than normal); No stridor, No wheezing Cardiovascular: No chest pain; palpitations Gastrointestinal: see HPI, nausea (this evening), 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 Worse in knees since had fall this am.), muscle pain (chronic from fibromyalgia) Skin: change in color (redness to knees since fall this am, worse on left knee. redness to left forehead since fall) Psychiatric/Neurological: Headache (mild since fall this am), Paresthesia (chronic due to neuropathy) Hematologic/Lymphatic: Easy Bleeding (taking blood thinner), Easy Bruising (taking blood thinner) Past Rjbnxqv-Glazqt-Akdbzl Hx Past Med/Social Hx: Reviewed Nursing Past Med/Soc Hx Patient Social History Alcohol Use: Denies Use Type Used: Cigarettes Former Smoker, Quit: Jul 22, 1992 2nd Hand Smoke Exposure: No Recent Infectious Disease Expo: No Recent Hopitalizations: No Immunizations Up To Date Tetanus Booster (TDap): Unknown Date of Pneumonia Vaccine: Dec 12, 2017 Date of Influenza Vaccine: Feb 11, 2019 Seasonal Allergies Seasonal Allergies: No Past Medical History Surgeries: Yes (Exploratory Lap) Hysterectomy, Tubal Ligation Respiratory: Yes Asthma Currently Using CPAP: No Currently Using BIPAP: No Cardiac: Yes Coronary Artery Disease, Hypertension Neurological: Yes Neuropathy Genitourinary: Yes (INCONT) UTI-Chronic Gastrointestinal: No Musculoskeletal: Yes (STENOSIS) Arthritis, Chronic Back Pain Endocrine: Yes Diabetes, Insulin dep HEENT: No Cancer: Yes Skin Did You Recieve Any Treatments: Yes What Type of Treatment Did You: Surgical Intervention Psychosocial: No Integumentary: Yes (Redness R foot and drainage between 4th and 5th R toe) Recent Skin Changes Blood Disorders: No Family Medical History Cardiovascular disease G8 BROTHER Completed stroke G8 SISTER Diabetes mellitus 19 MOTHER G8 BROTHER Fibromyalgia DAUGHTER Myocardial infarction 19 FATHER G8 BROTHER Physical Exam Vital Signs Vital Signs - First Documented 05/30/20 05/30/20 21:17 21:46 Temp 36.6 Pulse 115 Resp 20 B/P (MAP) 113/86 (95) Pulse Ox 90 O2 Delivery Room Air O2 Flow Rate 2.00 Capillary Refill : Less Than 3 Seconds Height, Weight, BMI Height: 5'63.00" Weight: 219lbs. 1.0oz. 99.189324xx; 39.00 BMI Method: General Appearance: No Apparent Distress, Obese HEENT: PERRL/EOMI, Normal ENT Inspection Neck: Non Tender, Supple Respiratory: Chest Non Tender, Lungs Clear, No Accessory Muscle Use, No Respiratory Distress, Decreased Breath Sounds Cardiovascular: Normal Peripheral Pulses, Irregularly Irregular, Tachycardia Gastrointestinal: Normal Bowel Sounds, No Pulsatile Mass, Non Tender, Soft Rectal: Deferred Extremity: Normal Capillary Refill, Pedal Edema (trace to 1+ pitting in BLE) Neurologic/Psychiatric: Alert, Oriented x3, spudder II-XII Norm as Tested Skin: Warm/Dry, Erythema (bilateral knees, left greater than right. Left forehead.) Focused Exam Lactate Level 05/30/20 21:10: Lactic Acid Level 2.37*H Lactic Acid Level Progress/Results/Core Measures Suspected Sepsis Recent Fever Within 48 Hours: No Infection Criteria Present: None New/Unexplained Altered Menta: No Sepsis Screen: No Definite Risk SIRS Temperature: Pulse: 115 Respiratory Rate: 20 Laboratory Tests 05/30/20 21:10: White Blood Count 16.1H Blood Pressure 113 /86 Mean: 95 05/30/20 21:10: Lactic Acid Level 2.37*H Laboratory Tests 05/30/20 21:10: Creatinine 1.13, INR Comment 1.2, Platelet Count 189, Total Bilirubin 0.5 Results/Orders Lab Results Laboratory Tests Test 05/30/20 21:10 05/30/20 21:40 05/30/20 22:18 Range/Units White Blood Count 16.1 H 4.3-11.0 10^3/uL Red Blood Count 4.59 4.35-5.85 10^6/uL Hemoglobin 13.3 11.5-16.0 G/DL Hematocrit 42 35-52 % Mean Corpuscular Volume 91 80-99 FL Mean Corpuscular Hemoglobin 29 25-34 PG Mean Corpuscular Hemoglobin Concent 32 32-36 G/DL Red Cell Distribution Width 48.2 H 10.0-14.5 % Platelet Count 189 130-400 10^3/uL Mean Platelet Volume 13.5 H 7.4-10.4 FL Immature Granulocyte % (Auto) 1 % Neutrophils (%) (Auto) 88 H 42-75 % Lymphocytes (%) (Auto) 5 L 12-44 % Monocytes (%) (Auto) 6 0-12 % Eosinophils (%) (Auto) 0 0-10 % Basophils (%) (Auto) 0 0-10 % Neutrophils # (Auto) 14.3 H 1.8-7.8 X 10^3 Lymphocytes # (Auto) 0.7 L 1.0-4.0 X 10^3 Monocytes # (Auto) 0.9 0.0-1.0 X 10^3 Eosinophils # (Auto) 0.0 0.0-0.3 10^3/uL Basophils # (Auto) 0.1 0.0-0.1 10^3/uL Immature Granulocyte # (Auto) 0.2 H 0.0-0.1 10^3/uL Neutrophils % (Manual) 85 % Lymphocytes % (Manual) 5 % Monocytes % (Manual) 6 % Basophils % (Manual) 1 % Band Neutrophils 3 % Microcytosis SLIGHT Prothrombin Time 15.1 H 12.2-14.7 SEC INR Comment 1.2 0.8-1.4 Activated Partial Thromboplast Time 32 24-35 SEC Sodium Level 139 135-145 MMOL/L Potassium Level 4.5 3.6-5.0 MMOL/L Chloride Level 102 98-107 MMOL/L Carbon Dioxide Level 24 21-32 MMOL/L Anion Gap 13 5-14 MMOL/L Blood Urea Nitrogen 21 H 7-18 MG/DL Creatinine 1.13 0.60-1.30 MG/DL Estimat Glomerular Filtration Rate 46 BUN/Creatinine Ratio 19 Glucose Level 199 H 70-105 MG/DL Lactic Acid Level 2.37 *H 0.50-2.00 MMOL/L Calcium Level 9.5 8.5-10.1 MG/DL Corrected Calcium 9.8 8.5-10.1 MG/DL Total Bilirubin 0.5 0.1-1.0 MG/DL Aspartate Amino Transf (AST/SGOT) 31 5-34 U/L Alanine Aminotransferase (ALT/SGPT) 21 0-55 U/L Alkaline Phosphatase 156 H 40-136 U/L Troponin I 0.30 <0.30 NG/ML C-Reactive Protein 9.71 H <0.50 MG/DL Total Protein 6.9 6.4-8.2 GM/DL Albumin 3.6 3.2-4.5 GM/DL Lipase 18 8-78 U/L Blood Gas Puncture Site RIGHT RADIAL Blood Gas Patient Temperature 37.3 Arterial Blood pH 7.43 7.37-7.43 Arterial Blood Partial Pressure CO2 40 35-45 MMHG Arterial Blood Partial Pressure O2 61 L 79-93 MMHG Arterial Blood HCO3 27 23-27 MMOL/L Arterial Blood Total CO2 27.7 21.0-31.0 MMOL/L Arterial Blood Oxygen Saturation 92 L 94-100 % Arterial Blood Base Excess 2.0 -2.5-2.5 MMOL/L Eldon Test NEGATIVE Blood Gas Ventilator Setting NO Blood Gas Inspired Oxygen RA My Orders Orders - SABRINA CARUSO MD Monitor-Rhythm Ecg Trace Only (05/30/20 21:22) Cbc With Automated Diff (05/30/20 21:22) Comprehensive Metabolic Panel (05/30/20 21:22) Crp Fs (05/30/20 21:22) Troponin I Fs (05/30/20 21:22) Protime With Inr (05/30/20 21:22) Partial Thromboplastin Time (05/30/20 21:22) Ekg Tracing (05/30/20 21:22) Ua Culture If Indicated (05/30/20 21:22) Blood Culture (05/30/20 21:22) Straight Cath For Spec.-Adult (05/30/20 21:22) Chest 1 View Ap/Pa Only (05/30/20 21:22) Knee 3 View Bilateral (05/30/20 21:22) Ct Head Wo (05/30/20 21:22) O2 (05/30/20 21:22) Lactic Acid Analyzer (05/30/20 21:22) Arterial Blood Gas (05/30/20 21:22) Ns Iv 1000 Ml (Sodium Chloride 0.9%) (05/30/20 21:26) Lipase (05/30/20 21:10) Arterial Blood Gas (05/30/20 21:41) Manual Differential (05/30/20 21:10) Rx-Ondansetron Po (Rx-Zofran Po) (05/30/20 22:32) Rx-Cephalexin Capsule (Rx-Keflex Capsule (05/30/20 22:32) Vital Signs/I&O 05/30/20 05/30/20 05/30/20 21:17 21:46 22:40 Temp 36.6 Pulse 115 106 Resp 20 18 B/P (MAP) 113/86 (95) 134/77 Pulse Ox 90 97 O2 Delivery Room Air Nasal Cannula Nasal Cannula O2 Flow Rate 2.00 2.00 05/31/20 00:00 Intake Total 1000 ml Balance 1000 ml Capillary Refill : Less Than 3 Seconds Blood Pressure Mean: 95 Progress Note #1: Progress Note check labs, cultures, urine, lactic acid, ECG with her tachycardia. CT head with her being on blood thinner and complaint of nausea with vomiting this evening. Xrays of chest with her low oxygen level. ABG for her low O2 level and report of pt stating she has retained CO2 levels and does not breath deep enough so it makes her sleep all the time. Xrays of her knees to check for fractures or bony injury since she has increased pain since the fall this am. Saline 1 L bolus with her having tachycardia. Cardiac manager monitoring for tachycardia and irregular heartbeat as well as hypoxia. Differential Diagnosis includes Intracranial hemorrhage, UTI with sepsis, Pneumonia, Covid, Pancreatitis, COPD with chronic respiratory failure and CO2 retention, Gastritis with GERD, Patellar fracture, Tibial plateau fracture Progress Note #2: Time: 21:54 Progress Note ABG shows normal pH and O2 sat of 92% on room air. She is not retaining CO2 as her PCO2 is 40. Chest x-ray shows blunting of the left costophrenic angle and this could be some mild atelectasis versus small pleural effusion versus small amount of infiltrate. Other labs and imaging are still pending. Electrocardiogram shows stable atrial fibrillation with a heart rate of [address] elevation. Progress Note #3: Progress Note Chemistry shows normal cardiac testing. Cr 1.13. Lactic acid slightly elevated at 2.37 to go with mild dehydration. UA shows signs of UTI with LE, WBC and Bacteria. Culture pending. She has had keflex in the past for UTI so will try that again to hopefully avoid some potential interactions with her other medicines. She is maintaining O2 sat well and doing better after the IVF bolus. She has not had any further nausea but will send with some Zofran to help keep her stomach settled. This may be secondary to the closed head injury or the UTI. Encourage fluids and hydration. Check with Madeline Mercado in clinic for continued concerns or if not improving. ECG Initial ECG Impression Date: May 30, 2020 Initial ECG Impression Time: 21:33 Initial ECG Rate: 103 Initial ECG Rhythm: A Fib/Flutter Comment Atrial fibrillation with a heart rate of 103 bpm. QT interval 341 ms with a QTc interval 447 ms. There is no acute ST elevation. There is low voltage in the precordial leads. This appears similar to prior tracings in the system. Diagnostic Imaging Diagonstic Imaging: Xray Plain Films/CT/US/NM/MRI: chest Comments NAME: BERNARDO BUCKLEY [facility] REC#: [id number] PT STATUS: REG ER : 1935 PHYSICIAN: SABRINA CARUSO MD ADMIT DATE: 05/30/20/ER FS Draft Date of Exam:05/30/20 CHEST 1 VIEW AP/PA ONLY Clinical indication: Patient with shortness of air. Exam: Portable chest x-ray upright view. Comparison: Chest x-ray dated 06/15/2019. Findings: There is interval mild elevation of the left hemidiaphragm. There is interval development of mild left basilar atelectasis versus infiltrate. There are increased lung markings throughout both lungs again seen. Pulmonary vasculature and cardiac silhouette are within normal limits. There is blunting of the left costophrenic angle and a small left pleural effusion cannot be completely excluded. There is no pneumothorax. There are degenerative spurs involving the spine. Impression: 1: There is interval elevation of the left hemidiaphragm and mild left basilar atelectasis versus infiltrate. 2: There is blunting of the left costophrenic angle and a left pleural effusion cannot be completely excluded. Dictated on workstation # [id number] Dict: 05/30/202141 Trans: 05/30/202150 PJE [id number] Interpreted by: LUCAS DIAS MD Electronically signed by: Diagonstic Imaging: Xray Plain Films/CT/US/NM/MRI: knee Comments On my review of the three-view films of each knee she has no acute fracture and only degenerative changes of both knees. Reviewed: Reviewed by Me Diagonstic Imaging: CT Plain Films/CT/US/NM/MRI: head Comments [facility]. [place], [place] NAME: BERNARDO BUCKLEY [facility] REC#: [id number] PT STATUS: REG ER : 1935 PHYSICIAN: SABRINA CARUSO MD ADMIT DATE: 05/30/20/ER FS Signed Date of Exam:05/30/20 CT HEAD WO Clinical indication: Patient fell and hit head anterior and posteriorly. Exam: Axial CT scan of the brain without IV contrast with coronal and sagittal reformatted images. Auto Exposure Controls were utilized during the CT exam to meet ALARA standards for radiation dose reduction. Comparison: None. Findings: There is no evidence of acute cerebral infarct, intracranial hemorrhage or gross mass effect. The brain parenchymal volume appears appropriate for patient's age. There are patchy and confluent areas of low-attenuation white matter changes involving both cerebral hemispheres and periventricular regions, likely representing chronic small vessel ischemic disease and leukoaraiosis. There is normal contreras-white matter distinction. There is no significant midline shift or herniation. There is no evidence of hydrocephalus. The basal cisterns are unremarkable. The skull, extracranial soft tissue and orbits are unremarkable. The paranasal sinuses are unremarkable. Temporal bones show no significant abnormality. Impression: Unremarkable CT scan of the brain for age. Dictated by: Dictated on workstation # [id number] Dict: 05/30/202155 Trans: 05/30/202254 [facility] [id number] Interpreted by: LUCAS DIAS MD Electronically signed by: LUCAS DIAS MD 05/30/202254 Departure Impression Primary Impression: Nausea and vomiting Qualified Codes: R11.2 - Nausea with vomiting, unspecified Additional Impressions: Dehydration Closed head injury without loss of consciousness Qualified Codes: S09.90XA - Unspecified injury of head, initial encounter Bilateral knee pain Qualified Codes: M25.561 - Pain in right knee; M25.562 - Pain in left knee; G89.29 - Other chronic pain Dysuria Cystitis without hematuria Disposition: HOME, SELF-CARE Condition: Stable Departure-Patient Inst. Decision time for Depature: 22:18 Referrals: [facility] (PCP/Family) Primary Care Physician Patient Instructions: Dehydration, Adult ED, Dysuria, Adult (DC), Knee Pain ED, Minor Head Injury, Adult ED, Nausea and Vomiting, Adult ED, Urinary Tract Inf ection, Adult ED Add. Discharge Instructions: Take full course of antibiotics for possible urine infection. Stay well hydrated. Take nausea medicine if needed to help keep your stomach settled Follow up with clinic if needed for continued concerns. All discharge instructions reviewed with patient and/or family. Voiced understanding. Scripts Ondansetron (Ondansetron Odt) 4 Mg Tab.rapdis 4 MG PO Q6H PRN for NAUSEA/VOMITING for 4 Days, #16 TAB 0 Refills Prov: SABRINA CARUSO MD 05/30/20 Cephalexin (Cephalexin) 500 Mg Tablet 500 MG PO TID for UTI for 7 Days, #20 TAB 0 Refills Prov: SABRINA CARUSO MD 05/30/20 SABRINA CARUSO MD May 30, 2020 21:34
[2020-05-30 21:48] LABS: ABG OXYGEN SATURATION 92 % (94-100); ABG PCO2 40 MMHG (35-45); ABG PH 7.43 (7.37-7.43); ABG PO2 61 MMHG (79-93); ABG TCO2 27.7 MMOL/L (21.0-31.0); ALLENS TEST NEGATIVE; INSPIRED O2 RA; PATIENT TEMP 37.3; VENTILATOR NO
--- NOTE | 2020-05-30 21:51 | Diagnostic Imaging Report ---
Clinical indication: Patient with shortness of air. Exam: Portable chest x-ray upright view. Comparison: Chest x-ray dated 06/15/2019. Findings: There is interval mild elevation of the left hemidiaphragm. There is interval development of mild left basilar atelectasis versus infiltrate. There are increased lung markings throughout both lungs again seen. Pulmonary vasculature and cardiac silhouette are within normal limits. There is blunting of the left costophrenic angle and a small left pleural effusion cannot be completely excluded. There is no pneumothorax. There are degenerative spurs involving the spine. Impression: 1: There is interval elevation of the left hemidiaphragm and mild left basilar atelectasis versus infiltrate. 2: There is blunting of the left costophrenic angle and a left pleural effusion cannot be completely excluded. Dictated by: Dictated on workstation # [id number]
[2020-05-30 21:58] LABS: POTASSIUM 4.5 MMOL/L (3.6-5.0)
[2020-05-30 21:59] LABS: ALBUMIN 3.6 GM/DL (3.2-4.5); BILIRUBIN,TOTAL 0.5 MG/DL (0.1-1.0); CALCIUM 9.5 MG/DL (8.5-10.1); CREATININE SERUM 1.13 MG/DL (0.60-1.30); TOTAL PROTEIN 6.9 GM/DL (6.4-8.2)
[2020-05-30 22:03] LABS: HEMATOCRIT 42 % (35-52); HEMOGLOBIN 13.3 G/DL (11.5-16.0); LYMPHOCYTES % (AUTO) 5 % (12-44); MEAN CORPUSCULAR HEMOGLOBIN 29 PG (25-34); MEAN CORPUSCULAR HGB CONC 32 G/DL (32-36); MEAN CORPUSCULAR VOLUME 91 FL (80-99); MEAN PLATELET VOLUME 13.5 FL (7.4-10.4); MONOCYTES % (AUTO) 6 % (0-12); NEUTROPHILS % (AUTO) 88 % (42-75); WHITE BLOOD COUNT 16.1 10^3/uL (4.3-11.0)
--- NOTE | 2020-05-30 22:03 | Diagnostic Imaging Report ---
Clinical indication: Patient fell and hit head anterior and posteriorly. Exam: Axial CT scan of the brain without IV contrast with coronal and sagittal reformatted images. Auto Exposure Controls were utilized during the CT exam to meet ALARA standards for radiation dose reduction. Comparison: None. Findings: There is no evidence of acute cerebral infarct, intracranial hemorrhage or gross mass effect. The brain parenchymal volume appears appropriate for patient's age. There are patchy and confluent areas of low-attenuation white matter changes involving both cerebral hemispheres and periventricular regions, likely representing chronic small vessel ischemic disease and leukoaraiosis. There is normal contreras-white matter distinction. There is no significant midline shift or herniation. There is no evidence of hydrocephalus. The basal cisterns are unremarkable. The skull, extracranial soft tissue and orbits are unremarkable. The paranasal sinuses are unremarkable. Temporal bones show no significant abnormality. Impression: Unremarkable CT scan of the brain for age. Dictated by: Dictated on workstation # [id number]
[2020-05-30 22:04] LABS: BASOPHILS # (AUTO) 0.1 10^3/uL (0.0-0.1); BASOPHILS % (AUTO) 0 % (0-10); EOSINOPHILS % (AUTO) 0 % (0-10); LYMPHOCYTES # (AUTO) 0.7 X 10^3 (1.0-4.0); MONOCYTES # (AUTO) 0.9 X 10^3 (0.0-1.0); NEUTROPHILS # (AUTO) 14.3 X 10^3 (1.8-7.8)
[2020-05-30] MEDS ORDERED: ONDA4TAB11 PO (22:18)
[2020-05-30] MEDS ORDERED: CEPH500T PO (22:18)
[2020-05-30 22:19] LABS: INR 1.2 (0.8-1.4); PROTHROMBIN TIME PATIENT 15.1 SEC (12.2-14.7)
[2020-05-30 22:28] LABS: BAND NEUTROPHILS 3 %; BASOPHILS % (MANUAL) 1 %; LYMPHOCYTES % (MANUAL) 5 %; MICROCYTOSIS SLIGHT; MONOCYTES % (MANUAL) 6 %; NEUTROPHILS % (MANUAL) 85 %; PLATELET COUNT 189 10^3/uL (130-400)
[2020-05-30] MEDS ORDERED: RX-CEPHALEXIN (KEFLEX) 250 MG CAP PPK#4 PO ONE (22:32)
[2020-05-30] MEDS ORDERED: RX-ONDANSETRON 4 MG ODT (ZOFRAN) PPK #4 ONE (22:32)
[2020-05-30 22:40] VITALS: BP 134/77
[2020-05-31] MEDS ORDERED: RX-CEPHALEXIN (KEFLEX) 250 MG CAP PPK#4 PO STA (01:28)
[2020-05-31] MEDS ORDERED: RX-ONDANSETRON 4 MG ODT (ZOFRAN) PPK #4 PO PRN (01:30)
[2020-05-31 07:24] LABS: CLARITY,URINE CLOUDY; COLOR,URINE YELLOW; GLUCOSE, URINE (UA) NEGATIVE (NEGATIVE); KETONES,URINE NEGATIVE (NEGATIVE); PROTEIN,URINE 1+ (NEGATIVE)
[2020-05-31 07:25] LABS: BACTERIA,URINE LARGE /HPF; BILIRUBIN,URINE NEGATIVE (NEGATIVE); LEUKOCYTE ESTERASE ,URINE 3+ (NEGATIVE); NITRITE,URINE POSITIVE (NEGATIVE); WBC,URINE >100 /HPF
--- NOTE | 2020-05-31 07:35 | Diagnostic Imaging Report ---
INDICATION: Fall, bilateral knee pain COMPARISON: None. FINDINGS: Multiple views bilateral knees demonstrate [id number] degenerative joint disease. There is no acute fracture dislocation. No joint effusion or unexpected radiopaque foreign body seen. Atherosclerotic disease is present. IMPRESSION: No fracture identified. Dictated by: Dictated on workstation # [id number]
== END 2020-05-30 22:40 | disposition home or self-care (01) ==
LOC: EDUNIT# 21:02 → ER FS 21:03
DX: S09.90XA Unspecified injury of head, initial encounter (principal); R11.2 Nausea with vomiting, unspecified; E86.0 Dehydration; M25.562 Pain in left knee; M25.561 Pain in right knee; R30.0 Dysuria; N30.90 Cystitis, unspecified without hematuria; E66.9 Obesity, unspecified; J45.909 Unspecified asthma, uncomplicated; I10 Essential (primary) hypertension; Z68.39 Body mass index [BMI] 39.0-39.9, adult; Z88.0 Allergy status to penicillin; Z88.5 Allergy status to narcotic agent; Z88.1 Allergy status to other antibiotic agents; Z88.8 Allergy status to other drugs, medicaments and biological substances; Z85.828 Personal history of other malignant neoplasm of skin; Z82.49 Family history of ischemic heart disease and other diseases of the circulatory system; Z83.3 Family history of diabetes mellitus; Z87.891 Personal history of nicotine dependence; Z79.82 Long term (current) use of aspirin; Z79.01 Long term (current) use of anticoagulants; W22.8XXA Striking against or struck by other objects, initial encounter
CPT/HCPCS: 36415; 51701; 70450; 71045; 80053; 81000; 82805; 83605; 83690; 84484; 85007; 85027; 85610; 85730; 86141; 87040; 87088; 99291

== ENCOUNTER → 2020-06-19 | Outpatient (CLI) | payer MEDICARE, MEDICAID ==
[~2020-06-19] MED LIST changes: +ONDA4TAB11 PO
--- NOTE | 2020-06-19 14:49 | Diagnostic Imaging Report ---
INDICATION: Fall with back pain x3 weeks. AP and lateral views of the lumbar spine are obtained and compared with 06/23/2019. There is mild irregularity of the inferior endplate of L2 which appears chronic compared to the prior study. There is no new compression deformity. There are diffuse facet degenerative changes from L3 through S1. There are small anterior osteophytes throughout the lumbar spine. There is disc space narrowing at L5-S1 and at L2-L3. There are diffuse vascular calcifications IMPRESSION: No acute fracture or new bony abnormality compared to the prior study. Dictated by: Dictated on workstation # [id number]
--- NOTE | 2020-06-19 17:17 | Diagnostic Imaging Report ---
INDICATION: Fall with right hip pain. TECHNIQUE: AP and oblique views of the right hip were obtained. FINDINGS: There is a faint linear lucency in the greater trochanter which may represent a nondisplaced fracture. There do appear to be some underlying osteophytes of the greater trochanter. Consider CT for further evaluation. There is no other abnormal finding. IMPRESSION: Questionable lucency in the region of the greater trochanter, suggest CT for further evaluation. Dictated by: Dictated on workstation # [id number]
== END ==
LOC: RAD FS 12:28
PROVIDERS: ATTEND Nurse Practitioner Family
DX: M54.5 Low back pain (principal); M25.551 Pain in right hip; W19.XXXA Unspecified fall, initial encounter
CPT/HCPCS: 72100; 73502

== ENCOUNTER 2020-06-27 14:59 | Day surgery (SDC) | payer MEDICARE, MEDICAID ==
[~2020-06-27] VITALS: Ht 160 cm; Wt 106.8 kg
[2020-06-27] MEDS ORDERED: LACTATED RINGERS 1,000 ML IV ONE (15:30)
[2020-06-27] MEDS ORDERED: FAMOTIDINE 20MG/2ML IV (PEPCID) IV STA (15:45)
[2020-06-27 15:52] LABS: BASOPHILS # (AUTO) 0.1 10^3/uL (0.0-0.1); BASOPHILS % (AUTO) 1 % (0-10); EOSINOPHILS # (AUTO) 0.3 10^3/uL (0.0-0.3); EOSINOPHILS % (AUTO) 3 % (0-10); HEMATOCRIT 38 % (35-52); HEMOGLOBIN 11.8 G/DL (11.5-16.0); LYMPHOCYTES % (AUTO) 8 % (12-44); MEAN CORPUSCULAR HEMOGLOBIN 29 PG (25-34); MEAN CORPUSCULAR HGB CONC 31 G/DL (32-36); MEAN CORPUSCULAR VOLUME 91 FL (80-99); MEAN PLATELET VOLUME 12.6 FL (7.4-10.4); MONOCYTES # (AUTO) 0.6 X 10^3 (0.0-1.0); MONOCYTES % (AUTO) 5 % (0-12); NEUTROPHILS # (AUTO) 9.9 X 10^3 (1.8-7.8); NEUTROPHILS % (AUTO) 83 % (42-75); PLATELET COUNT 187 10^3/uL (130-400)
--- NOTE | 2020-06-27 15:55 | ED Abdominal Pain ---
General Chief Complaint: Abdominal/GI Problems Stated Complaint: VOMITING | WEAKNESS Source of Information: Patient Exam Limitations: No Limitations History of Present Illness Date Seen by Provider: Jun 27, 2020 Time Seen by Provider: 15:30 Initial Comments Patient presents ER by private conveyance from walk-in clinic with chief compl aint nausea vomiting for the past 4 weeks since she had a fall. At that time was discovered she had a negative CT of the head and later Dr. Cadena discovered she had also fractured her hip. She was also having some vomiting as well as stools with bright red blood in it. She was set up for endoscopy but they want her to have her hip fixed first. Her scheduled appointment at [facility] is coming up for orthopedic surgeon. She has chronic hip and back pain and is managing it now with half a tablet of hydrocodone twice a day under the care of Dr. Cadena. Last night however she started having some rigors and shakes but her daughter says she checked and there was no fever. She also checked her blood sugar which was 190. She is on Tresiba and Ozempic. She is been on the Ozempic for about 6 or 8 months now and has not had any problems with GI symptoms with it. She has no history of endoscopy but she has had surgeries related to tubes tied, hysterectomy and subsequent hematoma drainage. She still has her gallbladder intact. She has been dealing with the nausea and poor appetite and trying to eat a bland diet of toast but she says she came to the doctor today because of the shaking and worsening symptoms. She had to have some fluids and overnight stay at [facility] earlier for dehydration. She has not felt herself since her fall. She also completed her second round of antibiotics yesterday for UTI. They do not routinely check her blood sugars but her A1c came down from 10-8 after starting Ozempic. Patient denies that her epigastric pain gets worse within a few hours after attempting to eat nor does her pain improved with bowel movements. Pain waxes and wanes and is low at this time. She is not having any nausea presently. Allergies and Home Medications Allergies Coded Allergies: Penicillins (Verified Allergy, Unknown, 03/04/18) acetaminophen (Verified Allergy, Unknown, 03/04/18) codeine (Verified Allergy, Unknown, 03/04/18) levofloxacin (Verified Allergy, Unknown, 03/04/18) meperidine (Verified Allergy, Unknown, 03/04/18) mirabegron (Verified Allergy, Unknown, 03/04/18) morphine (Verified Allergy, Unknown, 03/04/18) oxycodone (Verified Allergy, Unknown, 03/04/18) sitagliptin (Verified Allergy, Unknown, 03/04/18) Home Medications Acetaminophen 325 Mg/10.15 Ml Soln, 325 MG PO Q4H PRN for PAIN-MILD, (Reported) Albuterol Sulfate 1 Puff Puff, 2 PUFF IH Q4H PRN for WHEEZING, (Reported) 1 PUFF = 90 MCG Alendronate Sodium 70 Mg Tablet, 70 MG PO WEEK, (Reported) Amitriptyline HCl 25 Mg Tablet, 25 MG PO HS PRN for ITCHING, (Reported) Apixaban 5 Mg Tablet, 5 MG PO BID, (Reported) Aspirin 81 Mg Tablet.dr, 81 MG PO DAILY, (Reported) Azithromycin 250 Mg Tablet, 500 MG PO DAILY Prescribed by: NE BAIN on 03/06/18 1011 Benzonatate 100 Mg Capsule, 100 MG PO TID PRN for COUGH, (Reported) Cephalexin 500 Mg Capsule, 500 MG PO BID Prescribed by: NE BAIN on 03/06/18 1011 Cephalexin 500 Mg Tablet, 500 MG PO QID Prescribed by: ISHMAEL TEJEDA on 03/16/19 1828 Cephalexin 500 Mg Tablet, 500 MG PO TID Prescribed by: SABRINA CARUSO on 05/30/20 2218 Estradiol 42.5 Gm Cream.appl, 1 APPLIC VG WEEK, (Reported) Glimepiride 2 Mg Tablet, 2 MG PO DAILY, (Reported) L.acidoph & Paracasei,B.lactis 1 Each Capsule, 1 EACH PO AC Prescribed by: NE BAIN on 03/06/18 1011 Linagliptin 5 Mg Tablet, 5 MG PO DAILY, (Reported) Lisinopril 20 Mg Tablet, 20 MG PO BID, (Reported) Loratadine 10 Mg Tablet, 10 MG PO HS, (Reported) Magnesium Amino Acid Chelate 27 Mg Tablet, 27 MG PO DAILY, (Reported) Metoprolol Succinate 50 Mg Tab.er.24h, 50 MG PO DAILY, (Reported) Multivitamin 1 Each Tablet, 1 EACH PO DAILY, (Reported) Nitroglycerin 0.4 Mg Tab.subl, 0.4 MG SL for CHEST PAIN, (Reported) Omeprazole Magnesium 20 Mg Tablet.dr, 20 MG PO DAILY, (Reported) Ondansetron 4 Mg Tab.rapdis, 4 MG PO Q6H PRN for NAUSEA/VOMITING Prescribed by: SABRINA CARUSO on 05/30/20 1558 Rosuvastatin Calcium 20 Mg Tablet, 20 MG PO DAILY, (Reported) Patient Home Medication List Home Medication List Reviewed: Yes Review of Systems Review of Systems Constitutional: No chills, No fever; malaise, weakness EENTM: No Blurred Vision, No Double Vision Respiratory: Denies Cough, Denies Shortness of Air Cardiovascular: Denies Chest Pain, Denies Lightheadedness Gastrointestinal: See HPI, Abdominal Pain; Denies Constipated, Denies Diarrhea; Nausea, Rectal Bleeding, Vomiting Musculoskeletal: see HPI, back pain, joint pain Psychiatric/Neurological: Denies Anxiety, Denies Depressed All Other Systems Reviewed Negative Unless Noted: Yes Past Wzqntsq-Ygzchs-Emease Hx Patient Social History Alcohol Use: Denies Use Type Used: Cigarettes Former Smoker, Quit: Jul 22, 1992 2nd Hand Smoke Exposure: No Recent Hopitalizations: No Immunizations Up To Date Tetanus Booster (TDap): Unknown Date of Pneumonia Vaccine: Dec 12, 2017 Date of Influenza Vaccine: Feb 11, 2019 Seasonal Allergies Seasonal Allergies: No Past Medical History Surgeries: Yes (Exploratory Lap) Hysterectomy, Tubal Ligation Respiratory: Yes Asthma Currently Using CPAP: No Currently Using BIPAP: No Cardiac: Yes Coronary Artery Disease, Hypertension Neurological: Yes Neuropathy Genitourinary: Yes (INCONT) UTI-Chronic Gastrointestinal: No Musculoskeletal: Yes (STENOSIS) Arthritis, Chronic Back Pain Endocrine: Yes Diabetes, Insulin dep HEENT: No Cancer: Yes Skin Did You Recieve Any Treatments: Yes What Type of Treatment Did You: Surgical Intervention Psychosocial: No Integumentary: Yes (Redness R foot and drainage between 4th and 5th R toe) Recent Skin Changes Blood Disorders: No Family Medical History Cardiovascular disease G8 BROTHER Completed stroke G8 SISTER Diabetes mellitus 19 MOTHER G8 BROTHER Fibromyalgia DAUGHTER Myocardial infarction 19 FATHER G8 BROTHER Physical Exam Vital Signs Vital Signs - First Documented 06/27/20 15:05 Temp 36.0 Pulse 89 Resp 18 B/P (MAP) 140/82 (101) Pulse Ox 95 O2 Delivery Room Air Capillary Refill : Height/Weight/BMI Height: 5'63.00" Weight: 219lbs. 1.0oz. 99.327256gc; 39.00 BMI Method: General Appearance: WD/WN, no apparent distress HEENT: PERRL/EOMI, pharynx normal Neck: full range of motion, normal inspection Respiratory: lungs clear, normal breath sounds, no respiratory distress, no accessory muscle use Cardiovascular: normal peripheral pulses, regular rate, rhythm Peripheral Pulses: 2+ Radial Pulses (R), 2+ Radial Pulses (L) Gastrointestinal: normal bowel sounds, soft, no organomegaly, tenderness (Mild tenderness epigastric negative for Echeverria sign or McBurney's point tenderness.) Neurologic/Psychiatric: alert, normal mood/affect, oriented x 3 Skin: normal color, warm/dry Progress/Results/Core Measures Results/Orders Lab Results Laboratory Tests Test 06/27/20 15:20 06/27/20 16:40 Range/Units White Blood Count 12.0 H 4.3-11.0 10^3/uL Red Blood Count 4.14 L 4.35-5.85 10^6/uL Hemoglobin 11.8 11.5-16.0 G/DL Hematocrit 38 35-52 % Mean Corpuscular Volume 91 80-99 FL Mean Corpuscular Hemoglobin 29 25-34 PG Mean Corpuscular Hemoglobin Concent 31 L 32-36 G/DL Red Cell Distribution Width 15.5 H 10.0-14.5 % Platelet Count 187 130-400 10^3/uL Mean Platelet Volume 12.6 H 7.4-10.4 FL Immature Granulocyte % (Auto) 1 % Neutrophils (%) (Auto) 83 H 42-75 % Lymphocytes (%) (Auto) 8 L 12-44 % Monocytes (%) (Auto) 5 0-12 % Eosinophils (%) (Auto) 3 0-10 % Basophils (%) (Auto) 1 0-10 % Neutrophils # (Auto) 9.9 H 1.8-7.8 X 10^3 Lymphocytes # (Auto) 1.0 1.0-4.0 X 10^3 Monocytes # (Auto) 0.6 0.0-1.0 X 10^3 Eosinophils # (Auto) 0.3 0.0-0.3 10^3/uL Basophils # (Auto) 0.1 0.0-0.1 10^3/uL Immature Granulocyte # (Auto) 0.1 0.0-0.1 10^3/uL Neutrophils % (Manual) 79 % Lymphocytes % (Manual) 8 % Monocytes % (Manual) 3 % Eosinophils % (Manual) 3 % Basophils % (Manual) 1 % Myelocytes % 1 % Band Neutrophils 5 % Blood Morphology Comment NORMAL Sodium Level 134 L 135-145 MMOL/L Potassium Level 5.2 H 3.6-5.0 MMOL/L Chloride Level 98 98-107 MMOL/L Carbon Dioxide Level 23 21-32 MMOL/L Anion Gap 13 5-14 MMOL/L Blood Urea Nitrogen 26 H 7-18 MG/DL Creatinine 1.73 H 0.60-1.30 MG/DL Estimat Glomerular Filtration Rate 28 BUN/Creatinine Ratio 15 Glucose Level 155 H 70-105 MG/DL Calcium Level 9.8 8.5-10.1 MG/DL Corrected Calcium 10.3 H 8.5-10.1 MG/DL Total Bilirubin 0.3 0.1-1.0 MG/DL Aspartate Amino Transf (AST/SGOT) 18 5-34 U/L Alanine Aminotransferase (ALT/SGPT) 11 0-55 U/L Alkaline Phosphatase 139 H 40-136 U/L C-Reactive Protein 8.81 H <0.50 MG/DL Total Protein 6.9 6.4-8.2 GM/DL Albumin 3.4 3.2-4.5 GM/DL Lipase 15 8-78 U/L Urine Color YELLOW Urine Clarity CLEAR Urine pH 5.5 5-9 Urine Specific [place] 1.020 1.016-1.022 Urine Protein NEGATIVE NEGATIVE Urine Glucose (UA) NEGATIVE NEGATIVE Urine Ketones NEGATIVE NEGATIVE Urine Nitrite NEGATIVE NEGATIVE Urine Bilirubin NEGATIVE NEGATIVE Urine Urobilinogen 0.2 < = 1.0 MG/DL Urine Leukocyte Esterase 1+ H NEGATIVE Urine RBC (Auto) NEGATIVE NEGATIVE Urine RBC NONE /HPF Urine WBC 5-10 H /HPF Urine Squamous Epithelial Cells NONE /HPF Urine Crystals NONE /LPF Urine Bacteria NEGATIVE /HPF Urine Casts PRESENT /LPF Urine Hyaline Casts 5-10 H /LPF Urine Mucus SMALL H /LPF Urine Culture Indicated YES My Orders Orders - TUCKER DESAI Cbc With Automated Diff (06/27/20 15:27) Comprehensive Metabolic Panel (06/27/20 15:27) Crp Fs (06/27/20 15:27) Lipase (06/27/20 15:27) Lactated Ringers (Lr 1000 Ml Iv Solution (06/27/20 15:30) Famotidine Injection (Pepcid Injection) (06/27/20 15:45) Ua Culture If Indicated (06/27/20 15:49) Straight Cath For Spec.-Adult (06/27/20 15:49) Manual Differential (06/27/20 15:20) Urine Culture (06/27/20 16:40) Medications Given in ED Current Medications Medications Dose Ordered Sig/Go Route Start Time Stop Time Status Last Admin Dose Admin Lactated Ringer's 1,000 ml @ 0 mls/hr Q0M ONCE IV 06/27/20 15:30 06/27/20 15:31 DC 06/27/20 15:55 1,000 MLS/HR Vital Signs/I&O 06/27/20 06/27/20 15:05 16:52 Temp 36.0 36.5 Pulse 89 82 Resp 18 16 B/P (MAP) 140/82 (101) 124/62 Pulse Ox 95 96 O2 Delivery Room Air Room Air Progress Progress Note #1: Time: 15:55 Progress Note The patient's got ongoing work-up with orthopedic surgery for her broken hip and with general surgery to have a scope done after that is repaired for her stool. The provider called over from [facility] and reported she had a 10.9 hemoglobin and she has not had to receive any transfusions since this started. Possible there may be some iatrogenic component to her ongoing nausea and vomiting after her fall related to poor pain control, the Ozempic and possibly even the antibiotics. The daughter reports that they had difficulty getting a straight cath for urine specimen at [facility] because the patient had a rectal prolapse into the vagina. With her elevated blood sugars a UTI is still a possibility and I would like to rule this out with a straight cath if at all possible as contamination is likely to be the result of a clean catch specimen. June 02 of this year she had a straight cath in and out with pansensitive E. coli reported. Would also like to entertain the possibility of pancreatitis, cholecystitis or gastritis. We will give her some Pepcid and if necessary some Zofran for nausea. We will give her a liter of fluids as her heart rate is up in the 90- 100 range. Ultrasound is out for the day but we could set her up outpatient to look at her gallbladder tomorrow. We have also discussed another observation stay For dehydration and will see what her labs show. Progress Note #2: Time: 16:16 Progress Note Ultrasound his left for the day. We are on CT diversion as they are doing repairs until 1900 tonight. She has acute kidney injury, electrolyte derangements and dehydration so we discussed with Dr. Quiles and he agrees to take her on and he will order appropriate imaging after he examines her. Progress Note #3: Time: 17:12 Progress Note Urinalysis demonstrates a UTI. In the past she has had pansensitive E. coli. We discussed this with Dr. Quiles over the phone and he says he will order Rocephin. Departure Communication (Admissions) Time/Spoke to Admitting Phy: 16:15 Discussed the case with Dr. Quiles and he agrees to take the patient on. He will evaluate her before ordering any imaging. Observation status and fluid rehydration Impression Primary Impression: Nausea and vomiting Qualified Codes: R11.2 - Nausea with vomiting, unspecified Additional Impressions: Dehydration Acute kidney injury Hip fracture Qualified Codes: S72.009D - Fracture of unspecified part of neck of unspecified femur, subsequent encounter for closed fracture with routine healing History of fall UTI (urinary tract infection) Qualified Codes: N30.00 - Acute cystitis without hematuria Disposition: ADMITTED INPATIENT Condition: Stable Admissions Decision to Admit Reason: Admit from ER (General) Decision to Admit/Date: Jun 27, 2020 Time/Decision to Admit Time: 16:00 Departure-Patient Inst. Referrals: MARGUERITE CADENA APRN (PCP/Family) Primary Care Physician TUCKER DESAI Jun 27, 2020 15:55
[2020-06-27 16:03] LABS: CREATININE SERUM 1.73 MG/DL (0.60-1.30); POTASSIUM 5.2 MMOL/L (3.6-5.0)
[2020-06-27 16:04] LABS: ALBUMIN 3.4 GM/DL (3.2-4.5); BILIRUBIN,TOTAL 0.3 MG/DL (0.1-1.0); CALCIUM 9.8 MG/DL (8.5-10.1); TOTAL PROTEIN 6.9 GM/DL (6.4-8.2)
[2020-06-27 16:09] LABS: BAND NEUTROPHILS 5 %; BASOPHILS % (MANUAL) 1 %; EOSINOPHILS % (MANUAL) 3 %; LYMPHOCYTES % (MANUAL) 8 %; MONOCYTES % (MANUAL) 3 %; MYELOCYTES % 1 %; NEUTROPHILS % (MANUAL) 79 %
[2020-06-27 16:10] LABS: RBC MORPH NORMAL
[2020-06-27 17:05] LABS: BACTERIA,URINE NEGATIVE /HPF; BILIRUBIN,URINE NEGATIVE (NEGATIVE); CLARITY,URINE CLEAR; COLOR,URINE YELLOW; GLUCOSE, URINE (UA) NEGATIVE (NEGATIVE); KETONES,URINE NEGATIVE (NEGATIVE); LEUKOCYTE ESTERASE ,URINE 1+ (NEGATIVE); NITRITE,URINE NEGATIVE (NEGATIVE); PH,URINE 5.5 (5-9); PROTEIN,URINE NEGATIVE (NEGATIVE)
[2020-06-27 17:50] VITALS: BP 159/100
[2020-06-27] MEDS ORDERED: ONDANSETRON 4 MG/2 ML (SDV) Z0FRAN IV PRN (18:00)
[2020-06-27] MEDS ORDERED: ANTACID SUSP 30 ML UDC (MYLANTA) PO PRN (18:00)
[2020-06-27] MEDS ORDERED: CATHETER FLUSH 10 ML SYR IV PRN (18:15)
[2020-06-27] MEDS: NS IV 1000 ML 1,000 ML IV SCH (18:46)
[2020-06-27 19:52] VITALS: BP 114/70
[2020-06-27] MEDS: inSUlin ASPART (NovoLOG) 1 UNIT/0.01 ML (CHARGE PER UNIT) SC SCH (21:01)
[2020-06-27 21:24] VITALS: BP 114/70
[2020-06-27] MEDS: APIXABAN 5 MG (ELIQUIS) TABLET PO SCH (21:49)
[2020-06-28] VITALS (7 sets, daily range): BP systolic 130–162; BP diastolic 60–84
[2020-06-28] MEDS: NS IV 1000 ML 1,000 ML IV SCH ×4 (01:11→17:48)
[2020-06-28 05:22] LABS: BASOPHILS # (AUTO) 0.1 10^3/uL (0.0-0.1); BASOPHILS % (AUTO) 1 % (0-10); EOSINOPHILS # (AUTO) 0.5 10^3/uL (0.0-0.3); EOSINOPHILS % (AUTO) 6 % (0-10); HEMATOCRIT 33 % (35-52); HEMOGLOBIN 10.2 g/dL (11.5-16.0); LYMPHOCYTES # (AUTO) 1.8 10^3/uL (1.0-4.0); LYMPHOCYTES % (AUTO) 23 % (12-44); MEAN CORPUSCULAR HEMOGLOBIN 29 pg (25-34); MEAN CORPUSCULAR HGB CONC 31 g/dL (32-36); MEAN CORPUSCULAR VOLUME 93 fL (80-99); MEAN PLATELET VOLUME 11.9 fL (9.0-12.2); MONOCYTES # (AUTO) 0.6 10^3/uL (0.0-1.0); MONOCYTES % (AUTO) 7 % (0-12); NEUTROPHILS # (AUTO) 4.8 10^3/uL (1.8-7.8); NEUTROPHILS % (AUTO) 62 % (42-75); PLATELET COUNT 169 10^3/uL (130-400); WHITE BLOOD COUNT 7.8 10^3/uL (4.3-11.0)
[2020-06-28 05:42] LABS: ALBUMIN 3.1 GM/DL (3.2-4.5); BILIRUBIN,TOTAL 0.2 MG/DL (0.1-1.0); CALCIUM 8.7 MG/DL (8.5-10.1); CREATININE SERUM 1.36 MG/DL (0.60-1.30); POTASSIUM 4.8 MMOL/L (3.6-5.0); TOTAL PROTEIN 5.8 GM/DL (6.4-8.2)
[2020-06-28] MEDS: inSUlin ASPART (NovoLOG) 1 UNIT/0.01 ML (CHARGE PER UNIT) SC SCH ×4 (05:42→20:27)
[2020-06-28] MEDS: PANTOPRAZOLE 40 MG (PROTONIX) VIAL IV SCH (07:59)
[2020-06-28] MEDS: APIXABAN 5 MG (ELIQUIS) TABLET PO SCH ×2 (08:00→20:02)
[2020-06-28] MEDS: fentaNYL INJ 100 MCG/2 ML AMP IV PRN ×2 (13:11→16:55)
--- NOTE | 2020-06-28 13:40 | History & Physical ---
PEGGY JONES MED STUDENT 06/28/20 1339: History of Present Illness History of Present Illness Reason for visit/HPI Chanda is a 85 yo female that presented to the ER yesterday afternoon with the chief complaint of weakness and chills but denies a fever. Pt has also been experiencing nausea and vomiting off and on for the past 4 weeks since falling and breaking her hip. She had a BP of 82/50 in the ER and states that the chills have improved since receiving IV fluids. Pt states that she feels bloated and has been trying to watch what she eats. Potatoes make the symptoms worse but nothing makes it better. Pt states that she hasn't had much of an appetite and has attempted to eat bland flood but that hasn't helped. Pt just finished her 2nd round of antibiotics for UTI and denies any symptoms. She also had complaints of LUQ abdominal pain. Pt stated that the pain will come and go but it causing her to take more swallow breaths leading to what she described as significant SOB today. Pt is not on supplemental O2 with a O2 sat of 93%. PMH is significant for non insulin dependent diabetes, hypertension, a fib, asthma, COPD, hypercholesterolemia, and fibromyalgia. PSH significant for stent and hysterectomy. Her FM consists of a father with heart disease, a mother with diabetes and two sisters that have both had strokes. Pt denies issue with urinating but has had multiple stools that the daughter describes as very dark. Pt has been unable to make an appointment for a coloscopy oo with a orthopedic surgeon. Date of Admission Jun 27, 2020 at 17:38 Date Seen by a Provider: Jun 28, 2020 Time Seen by a Provider: 13:15 I consulted on this patient on 06/28/20 13:28 Attending Physician Lyndsey Quiles MD Admitting Physician Madeline Mercado Aprn Consult Allergies and Home Medications Allergies Coded Allergies: Penicillins (Verified Allergy, Unknown, 03/04/18) acetaminophen (Verified Allergy, Unknown, 03/04/18) codeine (Verified Allergy, Unknown, 03/04/18) levofloxacin (Verified Allergy, Unknown, 03/04/18) meperidine (Verified Allergy, Unknown, 03/04/18) mirabegron (Verified Allergy, Unknown, 03/04/18) morphine (Verified Allergy, Unknown, 03/04/18) oxycodone (Verified Allergy, Unknown, 03/04/18) sitagliptin (Verified Allergy, Unknown, 03/04/18) Home Medications Acetaminophen 325 Mg Tablet, 325 MG PO Q4H PRN for PAIN-MILD (1-4), (Reported) Albuterol Sulfate 1 Puff Puff, 2 PUFF IH Q4H PRN for SHORTNESS OF BREATH, ( Reported) Alendronate Sodium 70 Mg Tablet, 70 MG PO SUN, (Reported) Amitriptyline HCl 25 Mg Tablet, 25 MG PO HS, (Reported) Apixaban 5 Mg Tablet, 5 MG PO BID, (Reported) Aspirin 81 Mg Tablet.dr, 81 MG PO DAILY, (Reported) Benzonatate 100 Mg Capsule, 100 MG PO TID PRN for COUGH, (Reported) Calcium Carbonate 260 Mg Tablet, 260 MG PO DAILY, (Reported) Fluticasone/Vilanterol 1 Each Blst.w.dev, 1 PUFF INH DAILY, (Reported) Gabapentin 100 Mg Capsule, 100 MG PO BID, (Reported) Glimepiride 2 Mg Tablet, 2 MG PO DAILY, (Reported) Insulin Degludec 100 Unit/1 Ml Insuln.pen, 20 UNITS SC HS, (Reported) Lisinopril 20 Mg Tablet, 20 MG PO BID, (Reported) Loratadine 10 Mg Tablet, 10 MG PO DAILY, (Reported) Magnesium Oxide 400 Mg Tablet, 400 MG PO DAILY, (Reported) Metoprolol Succinate 50 Mg Tab.er.24h, 50 MG PO HS, (Reported) Montelukast Sodium 10 Mg Tablet, 10 MG PO HS, (Reported) Multivitamin 1 Each Tablet, 1 EACH PO DAILY, (Reported) Nitroglycerin 0.4 Mg Tab.subl, 0.4 MG SL UD PRN for CHEST PAIN, (Reported) Omeprazole 20 Mg Capsule.dr, 20 MG PO DAILY, (Reported) Rosuvastatin Calcium 20 Mg Tablet, 20 MG PO DAILY, (Reported) Semaglutide 0.25 Mg/0.2 Ml Pen.injctr, 0.5 MG SQ SUN, (Reported) Spironolactone 25 Mg Tablet, 25 MG PO DAILY, (Reported) Past Seknzyc-Gxfysi-Eyzeli Hx Patient Social History Smoking Status: Former Smoker Former Smoker, Quit: Jul 22, 1992 2nd Hand Smoke Exposure: No Recent Hopitalizations: No Have you traveled recently?: No Alcohol Use?: No Pt feels they are or have been: No Immunizations Up To Date Tetanus Booster (TDap): Unknown Date of Pneumonia Vaccine: Dec 12, 2017 Date of Influenza Vaccine: Feb 11, 2019 Seasonal Allergies Seasonal Allergies: No Surgeries Yes (Exploratory Lap) Hysterectomy, Tubal Ligation Respiratory Yes Pneumonia Currently Using CPAP: No Currently Using BIPAP: No Cardiovascular Yes Coronary Artery Disease, Hypertension Neurological Yes Neuropathy Genitourinary Yes (INCONT) UTI-Chronic Gastrointestinal No Musculoskeletal Yes (STENOSIS) Arthritis, Chronic Back Pain Endocrine History of Endocrine Disorders: Yes Endocrine Disorders: Diabetes, Insulin dep HEENT History of HEENT Disorders: No Cancer Yes Skin Did You Recieve Any Treatments: Yes Type of Treatment: Surgical Intervention Psychosocial History of Psychiatric Problem: No Integumentary History of Skin or Integumenta: Yes (Redness R foot and drainage between 4th and 5th R toe) Skin/Integumentary Disorders: Recent Skin Changes Blood Transfusions History of Blood Disorders: No Family Medical History Family Hx: Cardiovascular disease G8 BROTHER Completed stroke G8 SISTER Diabetes mellitus 19 MOTHER G8 BROTHER Fibromyalgia DAUGHTER Myocardial infarction 19 FATHER G8 BROTHER Review of Systems Constitutional: chills; No dizziness, No fever; weakness EENTM: no symptoms reported; No hearing loss, No ear pain, No blurred vision, No eye pain, No vision loss, No hoarseness Respiratory: No cough; dyspnea on exertion; No hemoptysis; short of breath; No stridor Cardiovascular: No chest pain; Hx of Intervention; No palpitations, No syncope; vascular heart diseas Gastrointestinal: LUQ, abdominal pain; No constipation; loss of appetite, melena, nausea, vomiting Genitourinary: no symptoms reported; No dysuria, No frequency, No hematuria, No hesitancy, No pain : No Musculoskeletal: back pain; No joint pain, No muscle pain; muscle weakness; No neck pain Skin: no symptoms reported; No change in color, No dryness, No rash Psychiatric/Neurological: Weakness, Other Physical Exam Vital Signs Vital Signs - First Documented 06/27/20 06/27/20 15:05 21:24 Temp 36.0 Pulse 89 Resp 18 B/P (MAP) 140/82 (101) Pulse Ox 95 O2 Delivery Room Air FiO2 21 Capillary Refill : Less Than 3 Seconds Height, Weight, BMI Height: 5'63.00" Weight: 219lbs. 1.0oz. 99.359895yl; 259.51 BMI Method: General Appearance: WD/WN, Chronically ill, Mild Distress, Obese HEENT: PERRL/EOMI, Pharynx Normal Neck: Normal Inspection, Non Tender, Supple Respiratory: Chest Non Tender, Lungs Clear, Normal Breath Sounds, Decreased Breath Sounds Cardiovascular: Irregularly Irregular Gastrointestinal: No Pulsatile Mass, Non Tender, Soft Rectal: Deferred Back: Vertebral Tenderness (lumbar pain) Neurologic/Psychiatric: Alert, Oriented x3, Normal Mood/Affect, Motor Weakness, Other (pt stated that is forgetful at times) Skin: Normal Color, Warm/Dry Lymphatic: No Adenopathy Assessment/Plan Assessment and Plan Assessment: dehydration dyspnea melena LUQ abdominal pain diabetes- current glucose of 174 hypertension- current BP of 148/84 a fib COPD hip fracture lumbar pain diabetic neuropathy of the feet Plan: consult cardiology consult orthopedics CXR MAT protocol continue home medications SLICK FONTANEZ MD 06/28/20 2001: Allergies and Home Medications Allergies Coded Allergies: Penicillins (Verified Allergy, Unknown, 03/04/18) acetaminophen (Verified Allergy, Unknown, 03/04/18) codeine (Verified Allergy, Unknown, 03/04/18) levofloxacin (Verified Allergy, Unknown, 03/04/18) meperidine (Verified Allergy, Unknown, 03/04/18) mirabegron (Verified Allergy, Unknown, 03/04/18) morphine (Verified Allergy, Unknown, 03/04/18) oxycodone (Verified Allergy, Unknown, 03/04/18) sitagliptin (Verified Allergy, Unknown, 03/04/18) Home Medications Acetaminophen 325 Mg Tablet, 325 MG PO Q4H PRN for PAIN-MILD (1-4), (Reported) Albuterol Sulfate 1 Puff Puff, 2 PUFF IH Q4H PRN for SHORTNESS OF BREATH, (Reported) Alendronate Sodium 70 Mg Tablet, 70 MG PO SUN, (Reported) Amitriptyline HCl 25 Mg Tablet, 25 MG PO HS, (Reported) Apixaban 5 Mg Tablet, 5 MG PO BID, (Reported) Aspirin 81 Mg Tablet.dr, 81 MG PO DAILY, (Reported) Benzonatate 100 Mg Capsule, 100 MG PO TID PRN for COUGH, (Reported) Calcium Carbonate 260 Mg Tablet, 260 MG PO DAILY, (Reported) Fluticasone/Vilanterol 1 Each Blst.w.dev, 1 PUFF INH DAILY, (Reported) Gabapentin 100 Mg Capsule, 100 MG PO BID, (Reported) Glimepiride 2 Mg Tablet, 2 MG PO DAILY, (Reported) Insulin Degludec 100 Unit/1 Ml Insuln.pen, 20 UNITS SC HS, (Reported) Lisinopril 20 Mg Tablet, 20 MG PO BID, (Reported) Loratadine 10 Mg Tablet, 10 MG PO DAILY, (Reported) Magnesium Oxide 400 Mg Tablet, 400 MG PO DAILY, (Reported) Metoprolol Succinate 50 Mg Tab.er.24h, 50 MG PO HS, (Reported) Montelukast Sodium 10 Mg Tablet, 10 MG PO HS, (Reported) Multivitamin 1 Each Tablet, 1 EACH PO DAILY, (Reported) Nitroglycerin 0.4 Mg Tab.subl, 0.4 MG SL UD PRN for CHEST PAIN, (Reported) Omeprazole 20 Mg Capsule.dr, 20 MG PO DAILY, (Reported) Rosuvastatin Calcium 20 Mg Tablet, 20 MG PO DAILY, (Reported) Semaglutide 0.25 Mg/0.2 Ml Pen.injctr, 0.5 MG SQ SUN, (Reported) Spironolactone 25 Mg Tablet, 25 MG PO DAILY, (Reported) Patient Home Medication List Home Medication List Reviewed: Yes Past Luauoxn-Obbgkl-Fcypdy Hx Family Medical History Family Hx: Cardiovascular disease G8 BROTHER Completed stroke G8 SISTER Diabetes mellitus 19 MOTHER G8 BROTHER Fibromyalgia DAUGHTER Myocardial infarction 19 FATHER G8 BROTHER Review of Systems Constitutional: chills; No dizziness, No fever; malaise, weakness EENTM: no symptoms reported Respiratory: No cough; dyspnea on exertion, short of breath Cardiovascular: no symptoms reported; No chest pain, No palpitations Gastrointestinal: abdominal pain, loss of appetite, melena, nausea, vomiting Genitourinary: No dysuria; frequency; No hematuria Musculoskeletal: back pain, muscle weakness Skin: no symptoms reported; No lesions, No rash Psychiatric/Neurological: Weakness Physical Exam General Appearance: WD/WN, Mild Distress, Obese HEENT: PERRL/EOMI Neck: Normal Inspection, Non Tender, Supple Respiratory: Chest Non Tender, Lungs Clear, Normal Breath Sounds, No Respiratory Distress Cardiovascular: No Murmur, Irregularly Irregular Gastrointestinal: Normal Bowel Sounds, Non Tender, Soft; No Distended, No Guarding Back: Vertebral Tenderness (lumbar pain) Extremity: No Calf Tenderness, No Pedal Edema Neurologic/Psychiatric: Alert, Oriented x3, No Motor/Sensory Deficits, Normal Mood/Affect, oil producer II-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 Norm as Tested, Motor Weakness Skin: Normal Color, Warm/Dry Lymphatic: No Adenopathy Assessment/Plan Assessment and Plan Problems: (1) Nausea and vomiting Status: Acute Qualifiers: Qualified Codes: R11.2 - Nausea with vomiting, unspecified Assessment & Plan: - CLD, IVFs, will advance diet as tolerated (2) UTI (urinary tract infection) Status: Acute Qualifiers: Qualified Codes: N30.00 - Acute cystitis without hematuria Assessment & Plan: - Rocephin (3) Acute kidney injury Status: Acute Assessment & Plan: - No sure of baseline, trending down, will continue to monitor with IV/Oral hydration (4) Melena Status: Chronic Assessment & Plan: - Has outpatient scope planned (5) Atrial fibrillation Status: Chronic Qualifiers: Qualified Codes: I48.21 - Permanent atrial fibrillation Assessment & Plan: - Has been off OAC due to colonoscopy, will start lovenox, rate controlled (6) CAD (coronary artery disease) Status: Chronic Qualifiers: Qualified Codes: I25.10 - Atherosclerotic heart disease of [place] coronary artery without angina pectoris (7) Essential (primary) hypertension Status: Chronic (8) Non-insulin dependent type 2 diabetes mellitus Status: Chronic Assessment & Plan: - holding meds due to N/V and decreased appetite (9) History of fall Status: Acute (10) Hip fracture Status: Acute Qualifiers: Qualified Codes: S72.009D - Fracture of unspecified part of neck of unspecified femur, subsequent encounter for closed fracture with routine healing (11) DVT prophylaxis Assessment & Plan: - Lovenox Admission Diagnosis Admission Status: Observation Supervisory-Addendum Brief Verification & Attestation Participated in pt care: history, physical Personally performed: exam, history Care discussed with: Medical Student Procedures: n/a Verification and Attestation of Medical Student E/M Service A medical student performed and documented this service in my presence. I reviewed and verified all information documented by the medical student and made modifications to such information, when appropriate. I personally performed the physical exam and medical decision making. Slick Fontanez, Jun 28, 2020,20:02 PEGGY JONES MED STUDENT Jun 28, 2020 13:39 SLICK FONTANEZ MD Jun 28, 2020 20:01
[2020-06-28] MEDS ORDERED: INSU100I32 SC (13:49)
[2020-06-28] MEDS ORDERED: SEMA0.25 SQ (13:49)
[2020-06-28] MEDS ORDERED: GABA-486 PO (13:49)
[2020-06-28] MEDS ORDERED: OMEP20CA18 PO (13:49)
[2020-06-28] MEDS ORDERED: ACET325T49 PO (13:49)
[2020-06-28] MEDS ORDERED: MAGN400T39 PO (13:49)
[2020-06-28] MEDS ORDERED: FLUT1AER INH (13:49)
[2020-06-28] MEDS ORDERED: NITR0.4T39 SL (13:49)
[2020-06-28] MEDS ORDERED: MONT10TA32 PO (13:49)
[2020-06-28] MEDS ORDERED: SPIR25TA5 PO (13:49)
[2020-06-28] MEDS ORDERED: CALC260T15 PO (13:52)
[2020-06-28] MEDS ORDERED: ASPIRIN E.C. 81 MG (ECOTRIN) TAB PO ONE (20:37)
[2020-06-28] MEDS: meTOproloL SUCCINATE 50 MG (TOPROL XL) TAB PO SCH (21:14)
[2020-06-28] MEDS: AMITRIPTYLINE 25 MG (ELAVIL) TAB PO SCH (21:14)
[2020-06-28] MEDS ORDERED: morphine INJ 4 MG/ML 1 ML (VIAL/SYRINGE) ONE (23:53)
[2020-06-29] MEDS ORDERED: morphine INJ 4 MG/ML 1 ML (VIAL/SYRINGE) IVP PRN
[2020-06-29] MEDS ORDERED: NITROGLYCERIN 0.4 MG SL TABS BTL 25'S SL ONE (00:05)
[2020-06-29] MEDS: NITROGLYCERIN 0.4 MG SL TABS BTL 25'S SL PRN ×2 (00:16→01:28)
[2020-06-29 00:22] LABS: BASOPHILS # (AUTO) 0.1 10^3/uL (0.0-0.1); BASOPHILS % (AUTO) 1 % (0-10); EOSINOPHILS # (AUTO) 0.4 10^3/uL (0.0-0.3); EOSINOPHILS % (AUTO) 6 % (0-10); HEMATOCRIT 31 % (35-52); HEMOGLOBIN 9.7 g/dL (11.5-16.0); LYMPHOCYTES # (AUTO) 1.5 10^3/uL (1.0-4.0); LYMPHOCYTES % (AUTO) 21 % (12-44); MEAN CORPUSCULAR HEMOGLOBIN 29 pg (25-34); MEAN CORPUSCULAR HGB CONC 31 g/dL (32-36); MEAN CORPUSCULAR VOLUME 94 fL (80-99); MEAN PLATELET VOLUME 12.1 fL (9.0-12.2); MONOCYTES # (AUTO) 0.7 10^3/uL (0.0-1.0); MONOCYTES % (AUTO) 10 % (0-12); NEUTROPHILS # (AUTO) 4.2 10^3/uL (1.8-7.8); NEUTROPHILS % (AUTO) 60 % (42-75); PLATELET COUNT 152 10^3/uL (130-400)
[2020-06-29 00:59] LABS: ALANINE AMINOTRANSFERASE 16 U/L (0-55); ALKALINE PHOSPHATASE 105 U/L (40-136); BILIRUBIN,TOTAL 0.2 MG/DL (0.1-1.0); BUN/CREATININE RATIO 17; CALCIUM 8.2 MG/DL (8.5-10.1); CARBON DIOXIDE 21 MMOL/L (21-32); CHLORIDE 110 MMOL/L (98-107); CREATININE SERUM 0.89 MG/DL (0.60-1.30); GFR ESTIMATED > 60; GLUCOSE 111 MG/DL (70-105); POTASSIUM 4.9 MMOL/L (3.6-5.0); SODIUM 139 MMOL/L (135-145); TOTAL PROTEIN 5.6 GM/DL (6.4-8.2)
[2020-06-29] MEDS: NS IV 1000 ML 1,000 ML IV SCH ×2 (02:03→08:37)
[2020-06-29 04:45] VITALS: BP 150/85
[2020-06-29] MEDS: inSUlin ASPART (NovoLOG) 1 UNIT/0.01 ML (CHARGE PER UNIT) SC SCH ×4 (06:25→20:50)
[2020-06-29] MEDS ORDERED: RELABEL FOR HOME USE MC PRN (06:30)
[2020-06-29 08:00] VITALS: BP 178/98
[2020-06-29] MEDS: APIXABAN 5 MG (ELIQUIS) TABLET PO SCH ×2 (08:05→21:08)
[2020-06-29] MEDS: ASPIRIN E.C. 81 MG (ECOTRIN) TAB PO SCH (08:42)
[2020-06-29] MEDS: PANTOPRAZOLE 40 MG (PROTONIX) VIAL IV SCH (08:43)
--- NOTE | 2020-06-29 09:56 | Progress Note ---
Subjective Subjective Date Seen by Provider: Jun 29, 2020 Time Seen by Provider: 08:30 Chanda had a chief complaint of SOB this morning. Pt has an O2 sat of 95% on 2L via N/C but states that she feels like she can't catch her breath even when laying in bed. She stated that the SOB makes it very difficult for her to move or to eat.. Pt also mentioned chills and nausea late last night but denied vomiting. Pt is walking to and from the bathroom with assistance without difficulty urinating but states she hasn't had a BM since admission. Pt denies any abdominal pain today. Pt was alert and oriented upon questioning but doesn't remember speaking with me yesterday Review of Systems General: Chills, Appetite Pulmonary: Dyspnea Gastrointestinal: Nausea, Constipation Musculoskeletal: leg pain (fibromyalgia) Neurological: Weakness, Confusion All Other Systems Reviewed All Other Systems Reviewed: Yes Objective Exam Vital Signs Vital Signs - First Documented 06/27/20 06/27/20 06/28/20 15:05 21:24 19:39 Temp 36.0 Pulse 89 Resp 18 B/P (MAP) 140/82 (101) Pulse Ox 95 O2 Delivery Room Air O2 Flow Rate 2.00 FiO2 21 Capillary Refill : Less Than 3 Seconds General Appearance: WD/WN, Mild Distress, Obese HEENT: PERRL/EOMI, Pharynx Normal Neck: Normal Inspection, Non Tender, Supple Respiratory: Chest Non Tender, Lungs Clear, Normal Breath Sounds, No Respiratory Distress, Decreased Breath Sounds Cardiovascular: No Murmur, Irregularly Irregular Gastrointestinal: Normal Bowel Sounds, Non Tender, Soft; No Distended, No Guarding Rectal: Deferred Back: Vertebral Tenderness (lumbar pain) Extremity: No Pedal Edema, Calf Tenderness Neurologic/Psychiatric: Alert, Oriented x3, No Motor/Sensory Deficits, Normal Mood/Affect, facility service 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 II-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 Norm as Tested, Motor Weakness, Other (forgetful) Skin: Normal Color, Warm/Dry Lymphatic: No Adenopathy Results Lab Laboratory Tests 06/28/20 11:02: Glucometer 174H 06/28/20 15:25: Glucometer 231H 06/28/20 20:22: Glucometer 152H 06/29/20 00:15: White Blood Count 7.0, Red Blood Count 3.34L, Hemoglobin 9.7L, Hematocrit 31L, Mean Corpuscular Volume 94, Mean Corpuscular Hemoglobin 29, Mean Corpuscular Hemoglobin Concent 31L, Red Cell Distribution Width 15.3H, Platelet Count 152, Mean Platelet Volume 12.1, Immature Granulocyte % (Auto) 3, Neutrophils (%) (Auto) 60, Lymphocytes (%) (Auto) 21, Monocytes (%) (Auto) 10, Eosinophils (%) (Auto) 6, Basophils (%) (Auto) 1, Neutrophils # (Auto) 4.2, Lymphocytes # (Auto) 1.5, Monocytes # (Auto) 0.7, Eosinophils # (Auto) 0.4H, Basophils # (Auto) 0.1, Immature Granulocyte # (Auto) 0.2H, Sodium Level 139, Potassium Level 4.9, Chloride Level 110H, Carbon Dioxide Level 21, Anion Gap 8, Blood Urea Nitrogen 15, Creatinine 0.89, Estimat Glomerular Filtration Rate > 60, BUN/Creatinine Ratio 17, Glucose Level 111H, Calcium Level 8.2L, Corrected Calcium 9.0, Total Bilirubin 0.2, Aspartate Amino Transf (AST/SGOT) 15, Alanine Aminotransferase (ALT/SGPT) 16, Alkaline Phosphatase 105, Troponin I < 0.028, Total Protein 5.6L, Albumin 3.0L 06/29/20 05:57: Glucometer 104 Assessment/Plan Assessment/Plan Admission Dx Assessment: dehydration dyspnea diabetes- current glucose of 104, non insulin dependent uncontrolled hypertension- current BP of 178/94 a fib COPD hip fracture lumbar pain fibromyalgia anemia- Hgb 9.7 Plan: consult cardiology consult orthopedics MAT protocol continue home medications Problems: (1) Nausea and vomiting Qualifiers: Qualified Codes: R11.2 - Nausea with vomiting, unspecified Assessment & Plan: - CLD, IVFs, will advance diet as tolerated 06/29: Denies any N/V since admission, US ordered, advance diet as tolerated (2) Dyspnea Qualifiers: Qualified Codes: R06.02 - Shortness of breath Assessment & Plan: 06/29: Stop IVFs, Checking BNP and Echo (3) UTI (urinary tract infection) Qualifiers: Qualified Codes: N30.00 - Acute cystitis without hematuria Assessment & Plan: - Rocephin (4) Acute kidney injury Assessment & Plan: - No sure of baseline, trending down, will continue to monitor with IV/Oral hydration 06/29: Cr improved with hydration (5) Melena Assessment & Plan: - Has outpatient scope planned (6) Atrial fibrillation Qualifiers: Qualified Codes: I48.21 - Permanent atrial fibrillation Assessment & Plan: - Has been off OAC due to colonoscopy, will start lovenox, rate controlled (7) CAD (coronary artery disease) Qualifiers: Qualified Codes: I25.10 - Atherosclerotic heart disease of [place] coronary artery without angina pectoris (8) Essential (primary) hypertension (9) Non-insulin dependent type 2 diabetes mellitus Assessment & Plan: - holding meds due to N/V and decreased appetite (10) History of fall (11) Hip fracture Qualifiers: Qualified Codes: S72.009D - Fracture of unspecified part of neck of unspecif ied femur, subsequent encounter for closed fracture with routine healing (12) DVT prophylaxis Assessment & Plan: - Lovenox Admission Dx Assessment: dehydration dyspnea melena LUQ abdominal pain diabetes- current glucose of 174 hypertension- current BP of 148/84 a fib COPD hip fracture lumbar pain diabetic neuropathy of the feet Plan: consult cardiology consult orthopedics CXR MAT protocol continue home medications Clinical Quality Measures Admission Status Admission Dx Assessment: dehydration dyspnea melena LUQ abdominal pain diabetes- current glucose of 174 hypertension- current BP of 148/84 a fib COPD hip fracture lumbar pain diabetic neuropathy of the feet Plan: consult cardiology consult orthopedics CXR MAT protocol continue home medications Supervisory-Addendum Brief Verification & Attestation Participated in pt care: history, physical Personally performed: exam, history Care discussed with: Medical Student Procedures: n/a Verification and Attestation of Medical Student E/M Service A medical student performed and documented this service in my presence. I reviewed and verified all information documented by the medical student and made modifications to such information, when appropriate. I personally performed the physical exam and medical decision making. Slick Armstrong, Jun 29, 2020,12:48 PEGGY JONES MED STUDENT Jun 29, 2020 09:56 SLICK ARMSTRONG MD Jun 29, 2020 12:48
[2020-06-29] MEDS: RT-ALBUTEROL SULF 2.5 MG/3 ML PRE-MIX VIAL INH PRN ×2 (11:21→14:09)
--- NOTE | 2020-06-29 14:29 | Diagnostic Imaging Report ---
PROCEDURE: US Gallbladder. TECHNIQUE: Multiple real-time grayscale images were obtained over the right upper quadrant in various projections. INDICATION: Generalized abdominal pain. FINDINGS: The study is technically difficult due to body habitus. The liver shows mild fatty change with hepatomegaly measuring 18 cm in long axis. The bile ducts are not dilated. Common duct measures 5 mm. Gallbladder is fluid-filled. Wall is upper limits of normal at 3 mm. No pericholecystic fluid is seen. No mobile gallstones. The head and proximal body of the pancreas is visualized and appears normal. The proximal aorta is visualized and is not dilated measuring 1.7 cm. The vena cava and portal vein appear normal with Doppler sampling. Right kidney shows incomplete rotation residing in the mid abdomen near the left lobe of the liver. No evidence of hydronephrosis. There is no ascites. IMPRESSION: 1. No acute abnormalities demonstrated. Mild hepatomegaly with hepatic steatosis. 2. Gallbladder wall thickness is 3 mm though there are no gallstones or pericholecystic fluid demonstrated. 3. Technically difficult exam. Dictated by: Dictated on workstation # [id number]
[2020-06-29] MEDS ORDERED: FLUTICASONE/VILANTEROL 100 MCG 14'S (BREO) IH SCH (15:00)
[2020-06-29 16:00] VITALS: BP 149/87
[2020-06-29] MEDS: RT--FLUTICASONE/SALMETEROL 113-14 (AIRDUO RespiCLICK) IH SCH (16:58)
[2020-06-29] MEDS: RT-ALBUTEROL SULF 2.5 MG/3 ML PRE-MIX VIAL INH SCH ×3 (16:58→21:41)
[2020-06-29] MEDS ORDERED: RT-ALBUTEROL INHALER HFA (VENTOLIN HFA) 18 GM IH SCH (18:00)
[2020-06-29 19:46] VITALS: BP 130/64
[2020-06-29] MEDS: meTOproloL SUCCINATE 50 MG (TOPROL XL) TAB PO SCH (21:08)
[2020-06-29] MEDS: AMITRIPTYLINE 25 MG (ELAVIL) TAB PO SCH (21:08)
[2020-06-30] VITALS: BP 172/69
[2020-06-30] MEDS: RT-ALBUTEROL SULF 2.5 MG/3 ML PRE-MIX VIAL INH SCH ×6 (01:47→21:32)
[2020-06-30 04:00] VITALS: BP_SYST 133; BP_SYST 197; BP_DIAS 60; BP_DIAS 77
[2020-06-30] MEDS: inSUlin ASPART (NovoLOG) 1 UNIT/0.01 ML (CHARGE PER UNIT) SC SCH ×4 (05:35→20:34)
[2020-06-30 05:50] LABS: BASOPHILS # (AUTO) 0.1 10^3/uL (0.0-0.1); BASOPHILS % (AUTO) 1 % (0-10); EOSINOPHILS # (AUTO) 0.3 10^3/uL (0.0-0.3); EOSINOPHILS % (AUTO) 4 % (0-10); HEMATOCRIT 33 % (35-52); HEMOGLOBIN 9.9 g/dL (11.5-16.0); LYMPHOCYTES # (AUTO) 1.6 10^3/uL (1.0-4.0); LYMPHOCYTES % (AUTO) 19 % (12-44); MEAN CORPUSCULAR HEMOGLOBIN 29 pg (25-34); MEAN CORPUSCULAR HGB CONC 30 g/dL (32-36); MEAN CORPUSCULAR VOLUME 96 fL (80-99); MEAN PLATELET VOLUME 11.7 fL (9.0-12.2); MONOCYTES # (AUTO) 0.6 10^3/uL (0.0-1.0); MONOCYTES % (AUTO) 8 % (0-12); NEUTROPHILS # (AUTO) 5.4 10^3/uL (1.8-7.8); NEUTROPHILS % (AUTO) 67 % (42-75); PLATELET COUNT 159 10^3/uL (130-400)
[2020-06-30 06:07] LABS: ALBUMIN 3.2 GM/DL (3.2-4.5); CHLORIDE 110 MMOL/L (98-107); POTASSIUM 4.8 MMOL/L (3.6-5.0); SODIUM 140 MMOL/L (135-145)
[2020-06-30 06:08] LABS: CALCIUM 8.5 MG/DL (8.5-10.1)
[2020-06-30 06:09] LABS: GLUCOSE 105 MG/DL (70-105); TOTAL PROTEIN 5.8 GM/DL (6.4-8.2)
[2020-06-30 06:10] LABS: CARBON DIOXIDE 19 MMOL/L (21-32)
[2020-06-30 06:11] LABS: BILIRUBIN,TOTAL 0.3 MG/DL (0.1-1.0)
[2020-06-30 06:13] LABS: ALKALINE PHOSPHATASE 89 U/L (40-136); CREATININE SERUM 0.78 MG/DL (0.60-1.30); GFR ESTIMATED > 60
[2020-06-30 06:14] LABS: BUN/CREATININE RATIO 12
[2020-06-30 06:16] LABS: ALANINE AMINOTRANSFERASE 13 U/L (0-55)
[2020-06-30] MEDS: RT--FLUTICASONE/SALMETEROL 113-14 (AIRDUO RespiCLICK) IH SCH ×2 (06:55→18:06)
[2020-06-30] MEDS ORDERED: RT-ALBUTEROL INHALER HFA (VENTOLIN HFA) 18 GM IH PRN (07:00)
[2020-06-30 08:00] VITALS: BP 187/81
[2020-06-30] MEDS ORDERED: RT--FLUTICASONE/SALMETEROL 113-14 (AIRDUO RespiCLICK) IH SCH (08:00)
[2020-06-30] MEDS: PANTOPRAZOLE 40 MG (PROTONIX) TAB PO SCH (08:30)
[2020-06-30] MEDS: APIXABAN 5 MG (ELIQUIS) TABLET PO SCH ×2 (08:30→20:34)
[2020-06-30] MEDS: ASPIRIN E.C. 81 MG (ECOTRIN) TAB PO SCH (08:30)
[2020-06-30] MEDS: ACETAMINOPHEN 325 MG TABLET PO PRN ×2 (11:05→17:03)
[2020-06-30 12:00] VITALS: BP 143/68
[2020-06-30] MEDS: DOCUSATE SODIUM 100 MG (COLACE) CAP PO SCH ×2 (15:23→20:34)
[2020-06-30 16:00] VITALS: BP 164/79
[2020-06-30 20:27] VITALS: BP 175/80
[2020-06-30] MEDS: AMITRIPTYLINE 25 MG (ELAVIL) TAB PO SCH (20:33)
[2020-06-30] MEDS: meTOproloL SUCCINATE 50 MG (TOPROL XL) TAB PO SCH (20:34)
[2020-07-01] VITALS (7 sets, daily range): BP systolic 137–196; BP diastolic 63–88
[2020-07-01] MEDS: RT-ALBUTEROL SULF 2.5 MG/3 ML PRE-MIX VIAL INH SCH ×5 (02:07→22:30)
[2020-07-01] MEDS: inSUlin ASPART (NovoLOG) 1 UNIT/0.01 ML (CHARGE PER UNIT) SC SCH ×4 (05:48→20:54)
[2020-07-01] MEDS: ASPIRIN E.C. 81 MG (ECOTRIN) TAB PO SCH (07:49)
[2020-07-01] MEDS: DOCUSATE SODIUM 100 MG (COLACE) CAP PO SCH ×2 (07:49→20:51)
[2020-07-01] MEDS: PANTOPRAZOLE 40 MG (PROTONIX) TAB PO SCH (07:49)
[2020-07-01] MEDS: APIXABAN 5 MG (ELIQUIS) TABLET PO SCH (07:50)
[2020-07-01] MEDS: ACETAMINOPHEN 325 MG TABLET PO PRN ×2 (07:50→20:51)
--- NOTE | 2020-07-01 13:14 | Progress Note - Hospitalist ---
Subjective HPI/CC On Admission Date Seen by Provider: Jul 01, 2020 Time Seen by Provider: 13:09 Subjective/Events-last exam Upon my arrival patient was just returning from the bathroom where she had a small bowel movements a melanotic nonbloody. She reports she still having postprandial predominant epigastric discomfort with nausea. She reports some groin and hip pain when she first gets up. She reports that her shortness of breath is better she does have some mild pleuritic discomfort right side of her chest but it is more positional in nature now not with breathing but when she first sits up she reports no tenderness when she pushes over the area. She was currently able to take deep breaths with no pain. Objective Exam Vital Signs Vital Signs Date Time Temp Pulse Resp B/P (MAP) Pulse Ox O2 Delivery O2 Flow Rate FiO2 07/01/20 11:33 35.8 91 16 180/75 (110) 96 Nasal Cannula 2.00 06/27/20 21:24 21 Capillary Refill : Less Than 3 Seconds General Appearance: No Apparent Distress, Obese Respiratory: Chest Non Tender, Lungs Clear, Normal Breath Sounds, No Accessory Muscle Use, No Respiratory Distress Cardiovascular: No Gallop, No Murmur, Irregularly Irregular Gastrointestinal: Other (Obese mild epigastric discomfort to palpation elsewhere the abdomen is not tender Echeverria sign is negative bowel sounds are positive) Extremity: Other (1+ edema to the lower tibia bilaterally) Results/Procedures Lab Patient resulted labs reviewed. Assessment/Plan Assessment and Plan Assess & Plan/Chief Complaint 1. Lower GI bleed most likely with secondary anemia stable hold aspirin and Eliquis continue pantoprazole. 2. Postprandial predominant nausea and epigastric pain persist admission and sonogram did not reveal gallstones with gallbladder wall was mildly thickened raising the possibility of a calculus cholecystitis will obtain HIDA scan with CCK. Case discussed with Dr. BROWN with consultation. Patient will need colonoscopy in the future defer to Dr. BROWN. 3. Persistent atrial fibrillation rate controlled due to GI bleed holding aspirin and Eliquis. 4. Chronic obstructive pulmonary disease with past tobaccoism judged to be of moderate severity based on pulmonary function studies done approximately 1 year ago. NISSA DICKSON MD Jul 01, 2020 13:14
[2020-07-01] MEDS: RT--FLUTICASONE/SALMETEROL 113-14 (AIRDUO RespiCLICK) IH SCH ×2 (14:17→22:31)
[2020-07-01] MEDS: ONDANSETRON 4 MG (ZOFRAN) ORAL DISSOLVE TAB PO PRN (14:24)
[2020-07-01] MEDS ORDERED: RT-ALBUTEROL SULF 2.5 MG/3 ML PRE-MIX VIAL INH PRN (16:30)
--- NOTE | 2020-07-01 16:33 | CONSULTATION REPORT ---
DATE OF SERVICE: 07/01/2020 ATTENDING BUSINESS SERVICES ASSISTANT: Madeline Mercado APRN. ADMITTING PHYSICIAN: Dr. Quiles. HISTORY OF PRESENT ILLNESS: The patient is an 85-year-old female, who initially presented to the emergency department with weakness as well as intermittent episodes of nausea and vomiting for the past four weeks. She fell and broke her hip and has been rehabilitating for this. She was scheduled for a colonoscopy due to intermittent episodes of rectal bleeding. However, due to the fall, this was delayed. Upon admission, she also did have some continued episodes of self-limited red blood per rectum; however, this was stopped. She is on anticoagulation with apixaban and aspirin. She also had complained of left upper abdominal quadrant pain as well as shortness of breath upon admission. Since being admitted, she has not had any episodes of rectal bleeding and her hemoglobin has been stable. She has had continued intermittent episodes of nausea and vomiting as well as discomfort in the upper abdominal quadrants. There are no peritoneal signs. An ultrasound was performed, which did show gallbladder wall thickening; however, no stones or sludge. PAST MEDICAL HISTORY: Diabetes, hypertension, atrial fibrillation, asthma, COPD, hypercholesterolemia, fibromyalgia, and gastroesophageal reflux disease. PAST SURGICAL HISTORY: Tubal ligation and exploratory laparotomy. ALLERGIES: PENICILLIN, ACETAMINOPHEN, CODEINE, LEVOFLOXACIN, MEPERIDINE, MIRABEGRON, MORPHINE, OXYCODONE, and SITAGLIPTIN. MEDICATIONS: Albuterol one puff q.4 hours p.r.n., alendronate 70 mg weekly, amitriptyline 25 mg daily, apixaban 5 mg b.i.d., aspirin 81 mg daily, benzonatate 100 mg t.i.d. p.r.n., fluticasone/vilanterol one puff daily, gabapentin 100 mg b.i.d., glimepiride 2 mg daily, insulin 20 units at each day bedtime, lisinopril 20 mg b.i.d., loratadine 10 mg daily, metoprolol 50 mg daily, montelukast 10 mg daily, nitroglycerin sublingual p.r.n., omeprazole 20 mg daily, rosuvastatin 20 mg daily, semaglutide 0.5 mg subcutaneous weekly, and spironolactone 25 mg daily. SOCIAL HISTORY: Previous smoker, quit 89. Negative alcohol. FAMILY HISTORY: Father and brother with myocardial infarction. Mother and brother with diabetes. Sister, stroke. REVIEW OF SYSTEMS: This is an obese female, currently guarded secondary to the nausea and vomiting. She has not experienced any hematemesis nor coffee ground emesis. She states that her shortness of breath has improved. She does not report any cough or sputum production. She has had a few bowel movements since admission with no red blood per rectum, no dark tarry stools; however, she has had intermittent episodes for the past several months. No fever, chills, no recent inadvertent weight loss. All other review of systems is negative. PHYSICAL EXAMINATION: VITAL SIGNS: Temperature 36.4, blood pressure 96/88, pulse 99, respirations 18, and pulse ox 99% on 2 liters nasal cannula. CHEST: Decreased breath sounds in bilateral bases, few scattered rales bilaterally. HEART: Regular and no murmurs. EXTREMITIES: +1/3 bilateral lower extremity edema, negative Homans sign. HEENT: No scleral icterus or cervical lymphadenopathy. ABDOMEN: Soft and nondistended. There is pain in the right upper abdominal quadrant upon deep palpation. No peritoneal signs. SKIN: Warm and dry. LABORATORY DATA: WBC 8.0, hemoglobin 9.9, hematocrit 33, and platelets 15.5. BUN 9 and creatinine 0.78. Liver function enzymes are normal. ASSESSMENT AND PLAN: An 85-year-old female with intermittent rectal bleeding, recent fall with a greater trochanter hip fracture as well as nausea and vomiting and gallbladder wall dilatation, likely consistent with an acalculous cholecystitis. We will continue with conservative management for now with IV hydration, bowel rest with clear liquids as well as adequate pain and antinausea medications. She is scheduled for a HIDA scan for tomorrow and if this does indicate a chronic acalculous cholecystitis and if she would like, we can also proceed with preparation for colonoscopy as well as an EGD simultaneously. Job ID: [id number] DocumentID: [id number] Dictated Date: 07/01/2020 16:13:31 Tie Buyer Date: 07/01/2020 16:33:00 Dictated By: PONCHO BROWN MD
[2020-07-01] MEDS: meTOproloL SUCCINATE 50 MG (TOPROL XL) TAB PO SCH (20:51)
[2020-07-01] MEDS: AMITRIPTYLINE 25 MG (ELAVIL) TAB PO SCH (20:51)
[2020-07-02] MEDS: RT-ALBUTEROL SULF 2.5 MG/3 ML PRE-MIX VIAL INH SCH ×6 (01:57→21:10)
[2020-07-02 03:28] VITALS: BP 137/74
[2020-07-02] MEDS: inSUlin ASPART (NovoLOG) 1 UNIT/0.01 ML (CHARGE PER UNIT) SC SCH ×4 (05:26→21:13)
[2020-07-02 06:24] LABS: BASOPHILS # (AUTO) 0.1 10^3/uL (0.0-0.1); BASOPHILS % (AUTO) 1 % (0-10); EOSINOPHILS # (AUTO) 0.4 10^3/uL (0.0-0.3); EOSINOPHILS % (AUTO) 6 % (0-10); HEMATOCRIT 34 % (35-52); HEMOGLOBIN 10.3 g/dL (11.5-16.0); LYMPHOCYTES # (AUTO) 1.5 10^3/uL (1.0-4.0); LYMPHOCYTES % (AUTO) 22 % (12-44); MEAN CORPUSCULAR HEMOGLOBIN 28 pg (25-34); MEAN CORPUSCULAR HGB CONC 30 g/dL (32-36); MEAN CORPUSCULAR VOLUME 94 fL (80-99); MEAN PLATELET VOLUME 11.7 fL (9.0-12.2); MONOCYTES # (AUTO) 0.6 10^3/uL (0.0-1.0); MONOCYTES % (AUTO) 9 % (0-12); NEUTROPHILS % (AUTO) 60 % (42-75); PLATELET COUNT 155 10^3/uL (130-400); WHITE BLOOD COUNT 6.8 10^3/uL (4.3-11.0)
[2020-07-02 06:36] LABS: ALBUMIN 3.2 GM/DL (3.2-4.5); CHLORIDE 106 MMOL/L (98-107); POTASSIUM 4.4 MMOL/L (3.6-5.0); SODIUM 138 MMOL/L (135-145)
[2020-07-02 06:37] LABS: CALCIUM 8.4 MG/DL (8.5-10.1)
[2020-07-02 06:38] LABS: GLUCOSE 149 MG/DL (70-105); TOTAL PROTEIN 5.9 GM/DL (6.4-8.2)
[2020-07-02 06:39] LABS: CARBON DIOXIDE 21 MMOL/L (21-32)
[2020-07-02 06:40] LABS: BILIRUBIN,TOTAL 0.3 MG/DL (0.1-1.0)
[2020-07-02 06:42] LABS: ALKALINE PHOSPHATASE 99 U/L (40-136); CREATININE SERUM 0.83 MG/DL (0.60-1.30); GFR ESTIMATED > 60
[2020-07-02 06:43] LABS: BUN/CREATININE RATIO 8
[2020-07-02 06:45] LABS: ALANINE AMINOTRANSFERASE 12 U/L (0-55)
[2020-07-02 09:15] VITALS: BP 160/78
[2020-07-02] MEDS: PANTOPRAZOLE 40 MG (PROTONIX) TAB PO SCH (09:24)
[2020-07-02] MEDS: DOCUSATE SODIUM 100 MG (COLACE) CAP PO SCH ×2 (09:24→21:11)
--- NOTE | 2020-07-02 09:58 | Diagnostic Imaging Report ---
INDICATION: Nausea and vomiting. Patient was administered 5.3 mCi technetium 99m Choletec intravenously and imaging over the abdomen was performed. At 45 minutes, patient ingested 1 can of Ensure and the gallbladder ejection fraction was calculated. There is homogeneous uptake of activity by the liver with prompt excretion of activity into the gallbladder and common duct. There is normal passage of activity into the small bowel. Gallbladder ejection fraction is normal at 74%. IMPRESSION: Normal HIDA scan and gallbladder ejection fraction. Dictated by: Dictated on workstation # [id number]
[2020-07-02] MEDS: RT--FLUTICASONE/SALMETEROL 113-14 (AIRDUO RespiCLICK) IH SCH ×2 (10:42→18:45)
[2020-07-02] MEDS ORDERED: NON-FORMULARY MEDICATION 1 EA EA (Alendronate Sodium 70 MG) PO SCH (10:45)
[2020-07-02] MEDS ORDERED: NITROGLYCERIN 0.4 MG SL TABS BTL 25'S SL PRN (10:45)
[2020-07-02] MEDS ORDERED: ACETAMINOPHEN 325 MG TABLET PO PRN (10:45)
[2020-07-02] MEDS ORDERED: BENZONATATE 100 MG (TESSALON) CAPSULE PO PRN (10:45)
[2020-07-02] MEDS ORDERED: RT-ALBUTEROL SULF 2.5 MG/3 ML PRE-MIX VIAL IH PRN (10:45)
--- NOTE | 2020-07-02 11:13 | Progress Note - Hospitalist ---
REGINA DOLL MED STUDENT 07/02/20 1113: Subjective HPI/CC On Admission Date Seen by Provider: Jul 02, 2020 Time Seen by Provider: 09:45 Subjective/Events-last exam Attempted to see pt earlier but was having HIDA scan performed. After pt returned she was lying back in the recliner. Pt is very pleasant to talk with. Pt c/o hip pain, diarrhea, and LUQ abdominal pain. Pt explains falling on May 30 resulting in hip fracture which delayed scheduled colonoscopy for blood in stool. Pt describes first noticing blood in the stool shortly after the fall and was like and eruption of blood. Was similar to previous event when a hemorrhoid ruptured. Pt concerned about her BP and how it has been elevated recently. Review of Systems General: No Chills, No Fatigue HEENT: No Head Aches, No Dysphasia Pulmonary: Dyspnea, Cough Cardiovascular: No: Chest Pain, Palpitations Gastrointestinal: Nausea, Abdominal Pain (LUQ tenderness), Diarrhea; No: Vomiting Genitourinary: No Dysuria, No Hematuria Musculoskeletal: other (R Hip pain), back pain Neurological: Other (Diffuse pain due to fibromyalgia ); No: Weakness, Numbness Objective Exam Vital Signs Vital Signs Date Time Temp Pulse Resp B/P (MAP) Pulse Ox O2 Delivery O2 Flow Rate FiO2 07/02/20 10:42 95 Nasal Cannula 1.00 07/02/20 09:15 36.3 99 20 160/78 (105) 06/27/20 21:24 21 Capillary Refill : Less Than 3 Seconds General Appearance: No Apparent Distress, WD/WN HEENT: PERRL/EOMI, Moist Mucous Membranes Neck: Full Range of Motion, Normal Inspection, Supple Respiratory: Chest Non Tender, Lungs Clear, No Accessory Muscle Use, No Respiratory Distress, Crackles (bilateral bases) Cardiovascular: Regular Rate, Rhythm, No Edema, No Gallop, No Murmur Gastrointestinal: Normal Bowel Sounds, Soft, Tenderness (LUQ) Rectal: Deferred Back: No Vertebral Tenderness, Other (Vesicular lesions linearly arranged on R mid thoracic) Extremity: Normal Inspection, No Pedal Edema, Calf Tenderness (Due to fibromyalgia), Other (R hip fracture) Neurologic/Psychiatric: Alert, Oriented x3, No Motor/Sensory Deficits, Normal Mood/Affect Skin: Normal Color, Warm/Dry Results/Procedures Lab Laboratory Tests 07/02/20 06:15 Patient resulted labs reviewed. Assessment/Plan Assessment and Plan Assess & Plan/Chief Complaint ASSESSMENT: R Hip fracture UTI Reported blood in stool LUQ pain- possible acalculous cholecystitis HTN Poorly controlled diabetes COPD Hx AFib Anemia - 10.3 PLAN: Pain management Continue abx for UTI Monitor labs (Zachary) continue to hold ASA & eliquis for suspected GI bleed (Kenneth) HIDA scan performed this AM Appreciate Dr. Bello recs- possible colonoscopy/ EGD Consult ortho for hip fracture SHEREE PAT DO 07/03/20 0619: Subjective Subjective/Events-last exam Pt doing pretty well Just had her Hida scan today Dr. Cooper following This is her third round of UTI treatment of recent Home meds were restarted PT and OT ordered Echocardiogram shows EF of 60% DM is out of control so we will restart her insulin Cardiology consulted Review of Systems General: Malaise Objective Exam General Appearance: No Apparent Distress, WD/WN, Chronically ill Respiratory: Lungs Clear Cardiovascular: Regular Rate, Rhythm Neurologic/Psychiatric: Alert, Oriented x3, Disoriented Assessment/Plan Assessment and Plan Assess & Plan/Chief Complaint Monitor hgb PT OT Supportive care Supervisory-Addendum Brief Verification & Attestation Participated in pt care: history, MDM, physical Personally performed: exam, history, MDM, supervision of care Care discussed with: Medical Student Procedures: n/a Results interpretation: Verified all documentation Verification and Attestation of Medical Student E/M Service A medical student performed and documented this service in my presence. I reviewed and verified all information documented by the medical student and made modifications to such information, when appropriate. I personally performed the physical exam and medical decision making. Sheree Pat, Jul 03, 2020,06:18 REGINA DOLL MED STUDENT Jul 02, 2020 11:13 SHEREE PAT DO Jul 03, 2020 06:19
[2020-07-02 12:00] VITALS: BP 145/78
[2020-07-02] MEDS: VALACYCLOVIR 500 MG TAB (VALTREX) PO SCH ×2 (12:27→21:12)
--- NOTE | 2020-07-02 12:48 | Occupational Therapy Eval ---
OT Evaluation-General/PLF Medical Diagnosis Admission Date Jun 27, 2020 at 17:38 Medical Diagnosis: acute kidney injury; R hip fx Onset Date: Jun 27, 2020 Therapy Diagnosis Therapy Diagnosis: Decreased ADL status Height/Weight Height (Feet): 5 Height (Inches): 63.00 Weight (Pounds): 219 Weight (Ounces): 1.0 Precautions Precautions/Isolations: Contact Isolation, Fall Prevention, Pressure Ulcer Weight Bear Status Weight Bearing Restriction: Full Weight Bearing (per nursing) Referral Physician: Hannah Referral Reason: Activity Tolerance, Self Care, Evaluation/Treatment, Strengthening/ROM Medical History Pertinent Medical History: Arthritis, CAD, DM, HTN Current History Pt has experienced N/V for [address] of head = clear, R hip fx with acute kidney injury and blood in stool (delay in scans and colonoscopy 2* other dx) Reviewed History: Yes Social History Home: Single Level Current Living Status: Children (daughter) ADL-Prior Level of Function SCALE: Activities may be completed with or without assistive devices. 9-Uegnvzsnjv-srwrkxd completes the activity by him/herself with no assistance from a helper. 5-Set-up or Clean-up Assistance-helper sets up or cleans up; patient completes activity. [place] assists only prior to or following the activity. 4-Supervision or Touching Assistance-helper provides verbal cues and/or touching/steadying and/or contact guard assistance as patient completes activity. Assistance may be provided throughout the activity or intermittently. 3-Partial/Moderate Assistance-helper does LESS THAN HALF the effort. [place] lifts, holds or supports trunk or limbs, but provides less than half the effort. 2-Substantial/Maximal Assistance-helper does MORE THAN HALF the effort. [place] lifts or holds trunk or limbs and provides more than half the effort. 1-Zamnzalpr-kusrqk does ALL the effort. Patient does none of the effort to complete the activity. Or, the assistance of 2 or more helpers is required for the patient to complete the activity. If activity was not attempted, code reason: 7-Patient Refused. 9-Not Applicable-not attempted and the patient did not perform the activity before the current illness, exacerbation or injury. 10-Not Attempted due to Environmental Limitations-(lack of equipment, weather restraints, etc.). 88-Not Attempted due to Medical Conditions or Safety Concerns. ADL PLOF Comments Pt states IND within home, though in chair for most of day. Up with walker/ hand rails leading to bathroom to complete toileting/ showering IND. Pt requires TD for footwear at home and max A LB dressing (though able to thread loose briefs). 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 Pt agrees to OT eval/ treat. Mental Status/Objective Patient Orientation: Person, Place, Situation, Normal For Age Attachments: Oxygen (1L) Current Hearing Aids: No Dentures/Partials: Yes Upper Extremity ROM WFL BUE Upper Extremity Coordination WFL BUE Upper Extremity Sensation WFL per pt, denies neuropathy in hands. Upper Extremity Strength WFL BUE ADL-Treatment Eating (QC): 6 Oral Hygiene (QC): 6 Lower Body Dressing (QC): 4 (SBA brief donning/ doffing) On/Off Footwear (QC): 88 (denies) Toileting Hygiene (QC): 4 (SUP in sit.) Other Treatments Pt completes evaluation/ home environment questions and MMT/ ROM in chair. Pt states she never completes LB dressing. Educated on use of AE for dressing LB dressing (use of seo coordinator which pt owns) pt shakes head in understanding. Pt exp resses pain in multiple regions. Pt agrees to toileting, denies socks and gait belt. Educated on safety. Pt states can't stand items on feet and denies gait belt. SBA sit to stand, CGA-SBA ambulation with walker with kyphotic posture, SBA toileting-SUP. Pt doffs/ dons new brief. Ambulates back to chair. Pt expresses need to complete food order, assisted with this task. Per phone, pt continues at NPO status. Nursing notified of this and nursing takes over care. Pt is left in recliner with all needs met, call light in reach, pt's LEs elevated. Pt requires continued education on therapy purpose and encouragement to agree to continued services. Pt agrees to continued OT to ensure safe d/c home. Education OT Patient Education: Correct positioning, Modified ADL techniques, Progress toward Goal/Update tx plan, Purpose of tx/functional activities, Safety issues, Transfer techniques Teaching Recipient: Patient Teaching Methods: Demonstration, Discussion Response to Teaching: Verbalize Understanding, Return Demonstration, Reinforcement Needed OT Correction Goals Correction Goals Time Frame: Jul 09, 2020 Eating (QC): 6 Oral Hygiene (QC): 6 Toileting Hygiene (QC): 6 Shower/Bathe Self (QC): 6 Upper Body Dressing (QC): 6 Lower Body Dressing (QC): 3 On/Off Footwear (QC): 88 1=Demonstrate adherence to instructed precautions during ADL tasks. 2=Patient will verbalize/demonstrate understanding of assistive devices/modifications for ADL. 3=Patient will improve strength/tolerance for activity to enable patient to perform ADL's. OT Education/Plan Problem List/Assessment Assessment: Decreased Activ Tolerance, Decreased UE Strength, Dependent Transfers, Impaired I ADL's, Impaired Self-Care Skills Discharge Recommendations Plan/Recommendations: Continue POC Therapy Discharge Recommendati: Home & Family, Post Acute OT Treatment Plan/Plan of Care Treatment,Training & Education: Yes Patient would benefit from OT for education, treatment and training to promote independence in ADL's, mobility, safety and/or upper extremity function for ADL's. Plan of Care: ADL Retraining, Caregiver Training, Functional Mobility, UE Funct Exercise/Act, UE Neuromus Re-Ed/Coord Treatment Duration: Jul 09, 2020 Frequency: 5 times per week Estimated Hrs Per Day: .25 hour per day Agreement: Yes Rehab Potential: Fair Time/GCodes Start Time: 11:50 Stop Time: 12:18 Total Time Billed (hr/min): 28 Billed Treatment Time 1, EVM (10), ADL (18)= 28 YARELI KIM OTR Jul 02, 2020 12:48
[2020-07-02] MEDS: ONDANSETRON 4 MG (ZOFRAN) ORAL DISSOLVE TAB PO PRN (13:45)
--- NOTE | 2020-07-02 13:53 | Physical Therapy Evaluation ---
PT Evaluation-General Medical Diagnosis Admission Date Jun 27, 2020 at 17:38 Medical Diagnosis: acute kidney injury; R hip fx Onset Date: Jun 27, 2020 Therapy Diagnosis Therapy Diagnosis: Impaired functional mobility and strength Height/Weight Height (Feet): 5 Height (Inches): 63.00 Weight (Pounds): 219 Weight (Ounces): 1.0 Precautions Precautions/Isolations: Contact Isolation, Fall Prevention, Pressure Ulcer Weight Bear Status Right Lower Extremity: Right Full Weight Bearing Left Lower Extremity: Left Full Weight Bearing Referral Physician: Hannah Reason for Referral: Evaluation/Treatment Medical History Pertinent Medical History: Arthritis, CAD, DM, HTN, Neuropathy Additional Medical History R Hip Fx Current History Walk-in clinic due to N/V for 4 weeks. Reviewed History: Yes Social History Home: Single Level Current Living Status: Children (daughter) Entry Into Home: Ramp Prior Prior Level of Function SCALE: Activities may be completed with or without assistive devices. 4-Bxevdpowwv-wuysugw completes the activity by him/herself with no assistance from a helper. 5-Set-up or Clean-up Assistance-helper sets up or cleans up; patient completes activity. Zahl assists only prior to or following the activity. 4-Supervision or Touching Assistance-helper provides verbal cues and/or touching/steadying and/or contact guard assistance as patient completes activity. Assistance may be provided throughout the activity or intermittently. 3-Partial/Moderate Assistance-helper does LESS THAN HALF the effort. Zahl lifts, holds or supports trunk or limbs, but provides less than half the effort. 2-Substantial/Maximal Assistance-helper does MORE THAN HALF the effort. Zahl lifts or holds trunk or limbs and provides more than half the effort. 1-Toliytxzv-urvrsm does ALL the effort. Patient does none of the effort to complete the activity. Or, the assistance of 2 or more helpers is required for the patient to complete the activity. If activity was not attempted, code reason: 7-Patient Refused. 9-Not Applicable-not attempted and the patient did not perform the activity before the current illness, exacerbation or injury. 10-Not Attempted due to Environmental Limitations-(lack of equipment, weather restraints, etc.). 88-Not Attempted due to Medical Conditions or Safety Concerns. Bed Mobility: 6 Transfers (B,C,W/C): 6 Gait: 6 Indoor Mobility (Ambulation): Independent Stairs: Not Applicalbe Prior Devices Use: Walker PT Evaluation-Current Subjective Patient reluctantly agreed to participate in PT. Patient rates 10/10 pain in abdominal area, and notes feeling nauseous after lunch. Pt/Family Goals Functional independence at home Objective Patient Orientation: Normal For Age Attachments: Oxygen ROM/Strength ROM Upper Extremities WNL grossly ROM Lower Extremities WNL grossly Strength Upper Extremities WNL grossly Strength Lower Extremities Bilateral LE 3+/5 Integumentary/Posture Integumentary See nursing note Bowel Incontinence: No Bladder Incontinence: No Posture Ambulates with kyphotic posture, is able to fully extend to stand up straight. Neuromuscular (Tone, Coordination, Reflexes) WNL Sensory Vision: Functional Hearing: Functional Sensation Right Upper Extremit: Intact Sensation Left Upper Extremity: Intact Sensation Right Lower Extremit: Impaired Sensation Left Lower Extremity: Impaired Transfers Sit to Stand (QC): 4 SBA x1 Gait Does the Patient Walk?: Yes Mode of Locomotion: Walk Anticipated Mode of Locomotion: Walk Walk 10 feet (QC): 4 Walk 50 ft with 2 Turns(QC): 7 Walk 150 ft (QC): 7 Distance: 30' x2 Gait Assistive Device: FWW Comments/Gait Description Patient was steady with gait, but slow. Balance Sitting Static: Fair Sitting Dynamic: Fair Standing Static: Fair Standing Dynamic: Fair Picking up an Object (QC): 88 Assessment/Needs Pt to receive PT secondary to decreased mobility and strength impairments. Rehab Potential: Fair PT Mcc Goals Support Analyst Goals PT Support Analyst Goals Time Frame: Jul 13, 2020 Roll Left & Right (QC): 6 Sit to Lying (QC): 6 Lying-Sitting on Side/Bed(QC): 6 Sit to Stand (QC): 6 Chair/Zlq-ea-Xycof Xfer(QC): 6 Toilet Transfer (QC): 6 Car Transfer (QC): 6 Does the Patient Walk: Yes Walk 10 feet (QC): 6 Walk 50ft with 2 Turns (QC): 6 Walk 150 ft (QC): 6 Walking 10ft on Uneven Surface: 6 PT Plan Problem List Problem List: Activity Tolerance, Functional Strength, Safety, Balance, Gait, Transfer, Bed Mobility, ROM Treatment/Plan Treatment Plan: Continue Plan of Care Treatment Plan: Bed Mobility, Education, Functional Activity Brandie, Functional Strength, Gait, Safety, Therapeutic Exercise, Transfers Treatment Duration: Jul 13, 2020 Frequency: 6 times per week Estimated Hrs Per Day: .25 hour per day Discharge Recommendations Therapy Discharge Recommendati: Home & Family Time/GCodes Time In: 1331 Time Out: 1341 Total Billed Treatment Time: 10 Total Billed Treatment 1 visit: EVM: 10' LUZ MARIA ONEIL PT Jul 02, 2020 13:53
[2020-07-02 15:43] VITALS: BP 142/86
--- NOTE | 2020-07-02 17:13 | Consultation-Cardiology ---
HPI-Cardiology Cardiology Consultation: Date of Consultation 07/02/20 Time Seen by a Provider: 16:40 Date of Admission 06-27-20 Attending Physician Sheree Young DO Admitting Physician Madeline Mercado Aprn Consulting Physician Duane Diaz MD HPI: Chief Complaint: Chronic a-fib GIB Ms. Cornejo is an 85 yr old female admitted to [facility] from the ED on 06-27-20. Her daughter is at the bedside. Per history she had a non-syncopal fall at home on 05-30-20. She was evaluated in the ED and then discharged home. A few days later she was passing blood in her stools and felt weak. [place] [facility] for a few days for eval. She was to have an out pt endoscopy by Dr. Washington. She was also found to have a UTI which she was treated with. She reports she was having a lot of back and hip pain. She went to see her PCP, had an x-ry and found to have a right hip fracture. At this point her endoscopy was cancelled and she was instructed to resume Eliquis and ASA. Daughter was uncomfortable giving her the Eliquis, but she did give ASA daily. She was to see orthopedic services as an out pt. She then began to feel increasingly weak, chills, nausea at home with poor appetite. They then again brought her to the ED where she was found to be hypotensive. She does not report any further blood in her stools. She was taking Eliquis during this hospitalization, however, d/t concerns that she should not be taking it she began to refuse it. She has not been receiving ASA or OAC. She reports chronic joint, muscle pain. She states she is able to ambulate with assist and is to see orthopedic services as out pt next week. She reports she sees cardiology services at [facility], Dr. Craig. Review of Systems-Cardiology Review of Systems Constitutional: chills; No fever; malaise Eyes: No vision change Ears/Nose/Throat: No epistaxis, No recent hearing loss Respiratory: As described under HPI Cardiovascular: As described under HPI Gastrointestinal: nausea Genitourinary: No dysuria, No hematuria : No Skin: No rash on exposed areas, No ulcerations on exposed areas Psychiatric/Neurological: No anxiety, No depression, No seizure, No focal weakness, No syncope Hematologic: No bleeding abnormalities All Other Systems Reviewed Negative Unless Noted: Yes [id number] Hx Patient Social History Smoking Status: Former Smoker 2nd Hand Smoke Exposure: No Have you traveled recently?: No Alcohol Use?: No Pt feels they are or have been: No Immunizations Up To Date Tetanus Booster (TDap): Unknown Date of Pneumonia Vaccine: Dec 12, 2017 Date of Influenza Vaccine: Feb 11, 2019 Past Medical History PMH As described under Assessment. Family Medical History Family Medical History: She reports her father had CAD. She reports a brother with CAD. She reports a sister with h/o CVA. Family History: 19 FATHER Myocardial infarction 19 MOTHER Diabetes mellitus G8 BROTHER Myocardial infarction Diabetes mellitus Cardiovascular disease G8 SISTER Completed stroke DAUGHTER Fibromyalgia Allergies and Home Medications Allergies Coded Allergies: Penicillins (Verified Allergy, Unknown, 03/04/18) codeine (Verified Allergy, Unknown, 03/04/18) levofloxacin (Verified Allergy, Unknown, 03/04/18) meperidine (Verified Allergy, Unknown, 03/04/18) mirabegron (Verified Allergy, Unknown, 03/04/18) morphine (Verified Allergy, Unknown, 03/04/18) oxycodone (Verified Allergy, Unknown, 03/04/18) sitagliptin (Verified Allergy, Unknown, 03/04/18) Home Medications Acetaminophen 325 Mg Tablet, 325 MG PO Q4H PRN for PAIN-MILD (1-4), (Reported) Albuterol Sulfate 1 Puff Puff, 2 PUFF IH Q4H PRN for SHORTNESS OF BREATH, (Reported) Alendronate Sodium 70 Mg Tablet, 70 MG PO SUN, (Reported) Amitriptyline HCl 25 Mg Tablet, 25 MG PO HS, (Reported) Apixaban 5 Mg Tablet, 5 MG PO BID, (Reported) Aspirin 81 Mg Tablet.dr, 81 MG PO DAILY, (Reported) Benzonatate 100 Mg Capsule, 100 MG PO TID PRN for COUGH, (Reported) Calcium Carbonate 260 Mg Tablet, 260 MG PO DAILY, (Reported) Fluticasone/Vilanterol 1 Each Blst.w.dev, 1 PUFF INH DAILY, (Reported) Gabapentin 100 Mg Capsule, 100 MG PO BID, (Reported) Glimepiride 2 Mg Tablet, 2 MG PO DAILY, (Reported) Insulin Degludec 100 Unit/1 Ml Insuln.pen, 20 UNITS SC HS, (Reported) Lisinopril 20 Mg Tablet, 20 MG PO BID, (Reported) Loratadine 10 Mg Tablet, 10 MG PO DAILY, (Reported) Magnesium Oxide 400 Mg Tablet, 400 MG PO DAILY, (Reported) Metoprolol Succinate 50 Mg Tab.er.24h, 50 MG PO HS, (Reported) Montelukast Sodium 10 Mg Tablet, 10 MG PO HS, (Reported) Multivitamin 1 Each Tablet, 1 EACH PO DAILY, (Reported) Nitroglycerin 0.4 Mg Tab.subl, 0.4 MG SL UD PRN for CHEST PAIN, (Reported) Omeprazole 20 Mg Capsule.dr, 20 MG PO DAILY, (Reported) Rosuvastatin Calcium 20 Mg Tablet, 20 MG PO DAILY, (Reported) Semaglutide 0.25 Mg/0.2 Ml Pen.injctr, 0.5 MG SQ SUN, (Reported) Spironolactone 25 Mg Tablet, 25 MG PO DAILY, (Reported) Physical Exam-Cardiology Physical Exam Vital Signs/I&O 07/02/20 07/02/20 07/03/20 07/03/20 21:15 21:18 00:00 01:00 Temp 35.4 Pulse 103 99 Resp 20 B/P (MAP) 148/65 (92) Pulse Ox 94 96 O2 Delivery Room Air Nasal Cannula Nasal Cannula O2 Flow Rate 1.00 1.00 07/03/20 07/03/20 07/03/20 04:00 06:44 06:44 Temp 36.0 Pulse 67 Resp 20 B/P (MAP) 134/65 (88) Pulse Ox 93 94 94 O2 Delivery Nasal Cannula Nasal Cannula Nasal Cannula O2 Flow Rate 1.00 1.00 1.00 07/03/20 00:00 Intake Total 450 ml Output Total 100 ml Balance 350 ml Capillary Refill : Less Than 3 Seconds Constitutional: AAO x 3, well-developed, well-nourished HEENT: PERRL, hearing is well preserved, oral hygience is good Neck: No carotid bruit; carotid pulses are 2 + bilaterally Respiratory: No accessory muscle use, No respiratory distress; chest expansion is symmetric, chest is bilaterally symmetric, lungs clear to auscultation Cardiovascular: irregularly irregular; No JVD; S1 and S2 Gastrointestinal: No tender; soft, round, audible bowel sounds Extremities: no lower extremity edema bilateral Neurologic/Psychiatric: grossly intact (moves all extremities) Skin: No rash on exposed areas, No ulcerations on exposed areas Data Review Labs Laboratory Tests 07/02/20 11:14: Glucometer 234H 07/02/20 15:23: Glucometer 211H 07/02/20 20:16: Glucometer 218H 07/03/20 04:58: Glucometer 116H 07/03/20 05:27: White Blood Count 6.3, Red Blood Count 3.62L, Hemoglobin 10.5L, Hematocrit 34L, Mean Corpuscular Volume 94, Mean Corpuscular Hemoglobin 29, Mean Corpuscular Hemoglobin Concent 31L, Red Cell Distribution Width 15.5H, Platelet Count 171, Mean Platelet Volume 11.7, Immature Granulocyte % (Auto) 2, Neutrophils (%) (Auto) 58, Lymphocytes (%) (Auto) 23, Monocytes (%) (Auto) 10, Eosinophils (%) (Auto) 5, Basophils (%) (Auto) 1, Neutrophils # (Auto) 3.7, Lymphocytes # (Auto) 1.5, Monocytes # (Auto) 0.7, Eosinophils # (Auto) 0.3, Basophils # (Auto) 0.1, Immature Granulocyte # (Auto) 0.1, Sodium Level 140, Potassium Level 4.0, Chloride Level 104, Carbon Dioxide Level 25, Anion Gap 11, Blood Urea Nitrogen 6L, Creatinine 0.89, Estimat Glomerular Filtration Rate > 60, BUN/Creatinine Ratio 7, Glucose Level 115H, Calcium Level 8.3L, Corrected Calcium 9.0, Magnesium Level 1.1*L, Total Bilirubin 0.3, Aspartate Amino Transf (AST/SGOT) 13, Alanine Aminotransferase (ALT/SGPT) 11, Alkaline Phosphatase 98, Total Protein 5.7L, Albumin 3.1L, Thyroid Stimulating Hormone (TSH) 1.07 Microbiology 06/27/20 Urine Culture - Final, Complete NO GROWTH ECG Impression ECG Initial ECG Impression: Atrial Fibrillation A/P-Cardiology Assessment/Admission Diagnosis Chronic a-fib with controlled rate CAD - h/o coronary stent placed 4-5 yrs ago at [facility] OAC - Eliquis - currently being held d/t concerns of GIB Echocardiogram of 06-29-20 showed LVEF 60-65%. LA mildly dilated. Possible GIB - GI services managing UTI - management per medical services COPD H/O TIA's HTN HLD Fibromyalgia Carotid arterial dz - details unknown Right hip fracture following a non-syncopal fall in May 2020 - awaiting eval with orthopedic services in [place] N/V of undetermined etiology Discussion and Recomendations Chronic a-fib with controlled rate Possible GIB for which endoscopy has been advised - management per GI services Advise source of bleeding be evaluated and determined so that OAC may be resumed d/t risk of CVA from chronic a-fib if ok with GI and medical services Advise resumption of ASA d/t reported h/o CAD and carotid arterial dz Request records from [facility] Cardiology services Monitor lab Replace electrolytes as indicated Further recs will be based on her hospital course We would like to thank medical services for this consult MELISSA WESTON Jul 02, 2020 17:13
--- NOTE | 2020-07-02 18:07 | Progress Note ---
Subjective Date Seen by a Provider: Jul 02, 2020 Time Seen by a Provider: 16:40 Subjective/Events-last exam Patient seen with Dr. Cooper. Patient reports doing ok. Reports occasional nausea and has had a few episodes of vomiting but denies any blood. Reports that she has had a few episodes of rectal bleeding in the past that was bright red but believes it is related to her hemorrhoids. Denies any significant abdominal pain. Denies any issues during or after her HIDA scan. Objective Exam Vital Signs Date Time Temp Pulse Resp B/P (MAP) Pulse Ox O2 Delivery O2 Flow Rate FiO2 07/02/20 15:43 37.1 115 18 142/86 (104) 95 Nasal Cannula 2.00 07/02/20 14:37 93 Nasal Cannula 1.00 07/02/20 12:55 109 07/02/20 12:00 36.2 111 20 145/78 (100) 95 Nasal Cannula 2.00 07/02/20 10:42 95 Nasal Cannula 1.00 07/02/20 10:42 95 Nasal Cannula 2.00 07/02/20 09:15 36.3 99 20 160/78 (105) 97 Nasal Cannula 2.00 07/02/20 08:00 96 Nasal Cannula 2.00 07/02/20 06:45 74 07/02/20 03:28 36.2 85 18 137/74 (95) 96 Nasal Cannula 2.00 07/02/20 01:57 97 Nasal Cannula 2.00 07/02/20 01:00 86 07/01/20 23:48 36.4 86 16 142/65 (90) 97 Nasal Cannula 2.00 07/01/20 22:33 98 Nasal Cannula 2.00 07/01/20 22:31 98 Nasal Cannula 2.00 07/01/20 20:52 36.4 94 20 137/78 (97) 95 Nasal Cannula 2.00 07/01/20 19:54 Nasal Cannula 1.50 07/01/20 19:00 122 07/01/20 18:51 94 Nasal Cannula 2.00 I & O 07/02/20 07:00 Intake Total 790 ml Output Total 400 ml Balance 390 ml Capillary Refill : Less Than 3 Seconds General Appearance: No Apparent Distress Neck: Full Range of Motion, Normal Inspection Respiratory: No Accessory Muscle Use, No Respiratory Distress Cardiovascular: Regular Rate, Rhythm, No Edema Gastrointestinal: normal bowel sounds, soft, tenderness (epigastric) Neurologic/Psychiatric: Alert, Oriented x3 Skin: Normal Color, Warm/Dry Results Lab Laboratory Tests 07/01/20 20:50: Glucometer 199H 07/02/20 05:23: Glucometer 139H 07/02/20 06:15: White Blood Count 6.8, Red Blood Count 3.63L, Hemoglobin 10.3L, Hematocrit 34L, Mean Corpuscular Volume 94, Mean Corpuscular Hemoglobin 28, Mean Corpuscular Hemoglobin Concent 30L, Red Cell Distribution Width 15.4H, Platelet Count 155, Mean Platelet Volume 11.7, Immature Granulocyte % (Auto) 3, Neutrophils (%) (Auto) 60, Lymphocytes (%) (Auto) 22, Monocytes (%) (Auto) 9, Eosinophils (%) (Auto) 6, Basophils (%) (Auto) 1, Neutrophils # (Auto) 4.0, Lymphocytes # (Auto) 1.5, Monocytes # (Auto) 0.6, Eosinophils # (Auto) 0.4H, Basophils # (Auto) 0.1, Immature Granulocyte # (Auto) 0.2H, Sodium Level 138, Potassium Level 4.4, Chloride Level 106, Carbon Dioxide Level 21, Anion Gap 11, Blood Urea Nitrogen 7, Creatinine 0.83, Estimat Glomerular Filtration Rate > 60, BUN/Creatinine Ratio 8, Glucose Level 149H, Calcium Level 8.4L, Corrected Calcium 9.0, Total Bilirubin 0.3, Aspartate Amino Transf (AST/SGOT) 12, Alanine Aminotransferase (ALT/SGPT) 12, Alkaline Phosphatase 99, Total Protein 5.9L, Albumin 3.2 07/02/20 11:14: Glucometer 234H 07/02/20 15:23: Glucometer 211H Microbiology 06/27/20 Urine Culture - Final, Complete NO GROWTH Assessment/Plan Assessment/Plan Assess & Plan/Chief Complaint An 85-year-old female with intermittent rectal bleeding, recent fall with a greater trochanter hip fracture, nausea, and vomiting. VSS WBC 6.8 Hgb stable at 10.3 HIDA negative Will proceed with scheduling the patient for an EGD and colonoscopy on Thursday (07/04) ARIN ATWOOD APRN Jul 02, 2020 18:07
--- NOTE | 2020-07-02 18:53 | Consultation-Cardiology ---
HPI-Cardiology Cardiology Consultation: Date of Consultation 07/02/20 Time Seen by a Provider: 17:50 Date of Admission Attending Physician Sheree Young DO Admitting Physician Madeline Mercado Aprn Consulting Physician MICHELLE BREWER MD, MA, FACP, FACC, [facility], CCDS HPI: Chief Complaint: Reasnon for consultation: Chronic a-fib HPI Ms. Cornejo is an 85 yr old female admitted to [facility] from the ED on 06-27-20. Her daughter is at the bedside. Per history she had a non-syncopal fall at home on 05-30-20. She was evaluated in the ED and then discharged home. A few days later she was passing blood in her stools and felt weak. She was then evaluated in the ED at [facility] and admitted for a few days for eval. She was to have an out pt endoscopy by Dr. Washington. She was also found to have a UTI which she was treated with. She reports she was having a lot of back and hip pain. She went to see her PCP, had an x-ry and found to have a right hip fracture. At this point her endoscopy was cancelled and she was instructed to resume Eliquis and ASA. Daughter was uncomfortable giving her the Eliquis, but she did give ASA daily. She was to see orthopedic services as an out pt. She then began to feel increasingly weak, chills, nausea at home with poor appetite. They then again brought her to the ED where she was found to be hypotensive. She does not repor t any further blood in her stools. She was taking Eliquis during this hospitalization, however, d/t concerns that she should not be taking it she began to refuse it. She has not been receiving ASA or OAC. She reports chronic joint, muscle pain. She states she is able to ambulate with assist and is to see orthopedic services as out pt next week. She reports she sees cardiology services at [facility], Dr. Craig. Review of Systems-Cardiology Review of Systems Constitutional: chills; No fever; malaise Eyes: No vision change Ears/Nose/Throat: No epistaxis, No recent hearing loss Respiratory: As described under HPI Cardiovascular: As described under HPI Gastrointestinal: nausea Genitourinary: No dysuria, No hematuria : No Skin: No rash on exposed areas, No ulcerations on exposed areas Psychiatric/Neurological: No anxiety, No depression, No seizure, No focal weakness, No syncope Hematologic: No bleeding abnormalities All Other Systems Reviewed Negative Unless Noted: Yes EUF-Sijlch-Gatkcu Hx Patient Social History Smoking Status: Former Smoker 2nd Hand Smoke Exposure: No Have you traveled recently?: No Alcohol Use?: No Pt feels they are or have been: No Immunizations Up To Date Tetanus Booster (TDap): Unknown Date of Pneumonia Vaccine: Dec 12, 2017 Date of Influenza Vaccine: Feb 11, 2019 Past Medical History PMH As described under Assessment. Family Medical History Family Medical History: She reports her father had CAD. She reports a brother with CAD. She reports a sister with h/o CVA. Family History: Cardiovascular disease G8 BROTHER Completed stroke G8 SISTER Diabetes mellitus 19 MOTHER G8 BROTHER Fibromyalgia DAUGHTER Myocardial infarction 19 FATHER G8 BROTHER Allergies and Home Medications Allergies Coded Allergies: Penicillins (Verified Allergy, Unknown, 03/04/18) codeine (Verified Allergy, Unknown, 03/04/18) levofloxacin (Verified Allergy, Unknown, 03/04/18) meperidine (Verified Allergy, Unknown, 03/04/18) mirabegron (Verified Allergy, Unknown, 03/04/18) morphine (Verified Allergy, Unknown, 03/04/18) oxycodone (Verified Allergy, Unknown, 03/04/18) sitagliptin (Verified Allergy, Unknown, 03/04/18) Home Medications Acetaminophen 325 Mg Tablet, 325 MG PO Q4H PRN for PAIN-MILD (1-4), (Reported) Albuterol Sulfate 1 Puff Puff, 2 PUFF IH Q4H PRN for SHORTNESS OF BREATH, (Reported) Alendronate Sodium 70 Mg Tablet, 70 MG PO SUN, (Reported) Amitriptyline HCl 25 Mg Tablet, 25 MG PO HS, (Reported) Apixaban 5 Mg Tablet, 5 MG PO BID, (Reported) Aspirin 81 Mg Tablet.dr, 81 MG PO DAILY, (Reported) Benzonatate 100 Mg Capsule, 100 MG PO TID PRN for COUGH, (Reported) Calcium Carbonate 260 Mg Tablet, 260 MG PO DAILY, (Reported) Fluticasone/Vilanterol 1 Each Blst.w.dev, 1 PUFF INH DAILY, (Reported) Gabapentin 100 Mg Capsule, 100 MG PO BID, (Reported) Glimepiride 2 Mg Tablet, 2 MG PO DAILY, (Reported) Insulin Degludec 100 Unit/1 Ml Insuln.pen, 20 UNITS SC HS, (Reported) Lisinopril 20 Mg Tablet, 20 MG PO BID, (Reported) Loratadine 10 Mg Tablet, 10 MG PO DAILY, (Reported) Magnesium Oxide 400 Mg Tablet, 400 MG PO DAILY, (Reported) Metoprolol Succinate 50 Mg Tab.er.24h, 50 MG PO HS, (Reported) Montelukast Sodium 10 Mg Tablet, 10 MG PO HS, (Reported) Multivitamin 1 Each Tablet, 1 EACH PO DAILY, (Reported) Nitroglycerin 0.4 Mg Tab.subl, 0.4 MG SL UD PRN for CHEST PAIN, (Reported) Omeprazole 20 Mg Capsule.dr, 20 MG PO DAILY, (Reported) Rosuvastatin Calcium 20 Mg Tablet, 20 MG PO DAILY, (Reported) Semaglutide 0.25 Mg/0.2 Ml Pen.injctr, 0.5 MG SQ SUN, (Reported) Spironolactone 25 Mg Tablet, 25 MG PO DAILY, (Reported) Patient Home Medication List Home Medication List Reviewed: Yes Physical Exam-Cardiology Physical Exam Vital Signs/I&O 07/02/20 07/02/20 07/02/20 07/02/20 08:00 09:15 10:42 10:42 Temp 36.3 Pulse 99 Resp 20 B/P (MAP) 160/78 (105) Pulse Ox 96 97 95 95 O2 Delivery Nasal Cannula Nasal Cannula Nasal Cannula Nasal Cannula O2 Flow Rate 2.00 2.00 2.00 1.00 07/02/20 07/02/20 07/02/20 07/02/20 12:00 12:55 14:37 15:43 Temp 36.2 37.1 Pulse 111 109 115 Resp 20 18 B/P (MAP) 145/78 (100) 142/86 (104) Pulse Ox 95 93 95 O2 Delivery Nasal Cannula Nasal Cannula Nasal Cannula O2 Flow Rate 2.00 1.00 2.00 07/02/20 07/02/20 18:45 18:46 Pulse Ox 93 93 O2 Delivery Nasal Cannula Nasal Cannula O2 Flow Rate 1.00 1.00 07/02/20 00:00 Intake Total 790 ml Output Total 200 ml Balance 590 ml Capillary Refill : Less Than 3 Seconds Constitutional: AAO x 3, well-developed, well-nourished HEENT: PERRL, hearing is well preserved, oral hygience is good Neck: No carotid bruit; carotid pulses are 2 + bilaterally Respiratory: No accessory muscle use, No respiratory distress; chest expansion is symmetric, chest is bilaterally symmetric, lungs clear to auscultation Cardiovascular: irregularly irregular; No JVD; S1 and S2 Gastrointestinal: No tender; soft, round, audible bowel sounds Extremities: no lower extremity edema bilateral Neurologic/Psychiatric: grossly intact (moves all extremities) Skin: No rash on exposed areas, No ulcerations on exposed areas Data Review Labs Laboratory Tests 07/01/20 20:50: Glucometer 199H 07/02/20 05:23: Glucometer 139H 07/02/20 06:15: White Blood Count 6.8, Red Blood Count 3.63L, Hemoglobin 10.3L, Hematocrit 34L, Mean Corpuscular Volume 94, Mean Corpuscular Hemoglobin 28, Mean Corpuscular Hemoglobin Concent 30L, Red Cell Distribution Width 15.4H, Platelet Count 155, Mean Platelet Volume 11.7, Immature Granulocyte % (Auto) 3, Neutrophils (%) (Auto) 60, Lymphocytes (%) (Auto) 22, Monocytes (%) (Auto) 9, Eosinophils (%) (Auto) 6, Basophils (%) (Auto) 1, Neutrophils # (Auto) 4.0, Lymphocytes # (Auto) 1.5, Monocytes # (Auto) 0.6, Eosinophils # (Auto) 0.4H, Basophils # (Auto) 0.1, Immature Granulocyte # (Auto) 0.2H, Sodium Level 138, Potassium Level 4.4, Chloride Level 106, Carbon Dioxide Level 21, Anion Gap 11, Blood Urea Nitrogen 7, Creatinine 0.83, Estimat Glomerular Filtration Rate > 60, BUN/Creatinine Ratio 8, Glucose Level 149H, Calcium Level 8.4L, Corrected Calcium 9.0, Total Bilirubin 0.3, Aspartate Amino Transf (AST/SGOT) 12, Alanine Aminotransferase (ALT/SGPT) 12, Alkaline Phosphatase 99, Total Protein 5.9L, Albumin 3.2 07/02/20 11:14: Glucometer 234H 07/02/20 15:23: Glucometer 211H Microbiology 06/27/20 Urine Culture - Final, Complete NO GROWTH A/P-Cardiology Assessment/Admission Diagnosis Chronic a-fib with controlled rate - OAC, but Eliquis is currently being held d/t concerns of GIB CAD - h/o coronary stent placed 4-5 yrs ago at [facility] Echocardiogram of 06-29-20 showed LVEF 60-65%. LA mildly dilated. H/o gastrointestinal bleed - Dr Young and Dr Cooper managing UTI - management per Medical services COPD H/O TIA's HTN HLD Fibromyalgia Carotid arterial dz - details unknown Right hip fracture following a non-syncopal fall in May 2020 - awaiting eval with orthopedic services in [place] N/V of undetermined etiology Discussion and Recomendations Complex management GIB for which endoscopy has been advised - management per GI services We advise source of bleeding be evaluated and treated so that OAC may be resumed d/t risk of CVA from chronic a-fib Advise resumption of ASA d/t reported h/o CAD and carotid arterial dz Request records from [facility] Cardiology services Monitor lab Replace electrolytes as indicated Further recs will be based on her hospital course We would like to thank medical services for this consult MICHELLE BREWER MD FACP FAC CCDS Jul 02, 2020 18:53
[2020-07-02 19:47] VITALS: BP 138/93
[2020-07-02] MEDS: ENOXAPARIN 40 MG/0.4 ML (LOVENOX) SYR SC SCH (21:10)
[2020-07-02] MEDS: meTOproloL SUCCINATE 50 MG (TOPROL XL) TAB PO SCH (21:11)
[2020-07-02] MEDS: GABAPENTIN 100 MG (NEURONTIN) CAP PO SCH (21:11)
[2020-07-02] MEDS: AMITRIPTYLINE 25 MG (ELAVIL) TAB PO SCH (21:11)
[2020-07-02] MEDS: MONTELUKAST 10 MG (SINGULAIR) TAB PO SCH (21:11)
[2020-07-02] MEDS: lisINopril 20 MG (PRINIVIL) TABLET PO SCH (21:12)
[2020-07-03] VITALS: BP 148/65
[2020-07-03] MEDS: RT-ALBUTEROL SULF 2.5 MG/3 ML PRE-MIX VIAL INH SCH ×7 (03:59→21:21)
[2020-07-03 04:00] VITALS: BP 134/65
[2020-07-03] MEDS: inSUlin ASPART (NovoLOG) 1 UNIT/0.01 ML (CHARGE PER UNIT) SC SCH ×4 (05:01→20:37)
[2020-07-03] MEDS: VALACYCLOVIR 500 MG TAB (VALTREX) PO SCH ×3 (05:29→21:07)
[2020-07-03 05:36] LABS: BASOPHILS # (AUTO) 0.1 10^3/uL (0.0-0.1); BASOPHILS % (AUTO) 1 % (0-10); EOSINOPHILS # (AUTO) 0.3 10^3/uL (0.0-0.3); EOSINOPHILS % (AUTO) 5 % (0-10); HEMATOCRIT 34 % (35-52); HEMOGLOBIN 10.5 g/dL (11.5-16.0); LYMPHOCYTES # (AUTO) 1.5 10^3/uL (1.0-4.0); LYMPHOCYTES % (AUTO) 23 % (12-44); MEAN CORPUSCULAR HEMOGLOBIN 29 pg (25-34); MEAN CORPUSCULAR HGB CONC 31 g/dL (32-36); MEAN CORPUSCULAR VOLUME 94 fL (80-99); MEAN PLATELET VOLUME 11.7 fL (9.0-12.2); MONOCYTES # (AUTO) 0.7 10^3/uL (0.0-1.0); MONOCYTES % (AUTO) 10 % (0-12); NEUTROPHILS # (AUTO) 3.7 10^3/uL (1.8-7.8); NEUTROPHILS % (AUTO) 58 % (42-75); PLATELET COUNT 171 10^3/uL (130-400); WHITE BLOOD COUNT 6.3 10^3/uL (4.3-11.0)
[2020-07-03 05:55] LABS: ALANINE AMINOTRANSFERASE 11 U/L (0-55); ALBUMIN 3.1 GM/DL (3.2-4.5); ALKALINE PHOSPHATASE 98 U/L (40-136); BILIRUBIN,TOTAL 0.3 MG/DL (0.1-1.0); BUN/CREATININE RATIO 7; CALCIUM 8.3 MG/DL (8.5-10.1); CARBON DIOXIDE 25 MMOL/L (21-32); CHLORIDE 104 MMOL/L (98-107); CREATININE SERUM 0.89 MG/DL (0.60-1.30); GFR ESTIMATED > 60; GLUCOSE 115 MG/DL (70-105); SODIUM 140 MMOL/L (135-145); TOTAL PROTEIN 5.7 GM/DL (6.4-8.2)
[2020-07-03 06:06] LABS: MAGNESIUM 1.1 MG/DL (1.6-2.4)
[2020-07-03] MEDS: MAGNESIUM 1 GM/100 ML IVPB 100 ML IV SCH ×5 (06:31→10:13)
[2020-07-03] MEDS: RT--FLUTICASONE/SALMETEROL 113-14 (AIRDUO RespiCLICK) IH SCH ×2 (06:43→21:21)
[2020-07-03 08:00] VITALS: BP 127/63
[2020-07-03] MEDS: ROSUVASTATIN 20 MG (CRESTOR) TABLET PO SCH (08:42)
[2020-07-03] MEDS: MAGNESIUM OXIDE (MAG-OX)400 MG TAB PO SCH (08:42)
[2020-07-03] MEDS: GLIMEPIRIDE 2 MG (AMARYL) TAB PO SCH (08:42)
[2020-07-03] MEDS: MULTIVIT W/MINERALS TAB (THERAGRAN M) PO SCH (08:43)
[2020-07-03] MEDS: PANTOPRAZOLE 20 MG TABLET (PROTONIX) PO SCH (08:43)
[2020-07-03] MEDS: LORATADINE (CLARITIN) 10 MG TAB PO SCH (08:43)
[2020-07-03] MEDS: ENOXAPARIN 40 MG/0.4 ML (LOVENOX) SYR SC SCH (08:43)
[2020-07-03] MEDS: CALCIUM CARBONATE 500 MG (TUMS) TAB.CHEW PO SCH (08:43)
[2020-07-03] MEDS: DOCUSATE SODIUM 100 MG (COLACE) CAP PO SCH ×2 (08:43→21:07)
[2020-07-03] MEDS: lisINopril 20 MG (PRINIVIL) TABLET PO SCH ×2 (08:43→21:11)
[2020-07-03] MEDS: GABAPENTIN 100 MG (NEURONTIN) CAP PO SCH ×2 (08:43→21:07)
[2020-07-03] MEDS: SPIRONOLACTONE 25 MG (ALDACTONE) TAB PO SCH (08:43)
[2020-07-03] MEDS: HYDROcodone /IBUPROFEN (VICOPROFEN) 7.5 MG/ 200 MG TAB PO PRN (08:58)
[2020-07-03] MEDS ORDERED: MAGNESIUM CITRATE 300 ML BTL PO ONE (10:00)
--- NOTE | 2020-07-03 10:34 | Physical Therapy Daily Note ---
PT Daily Note-Current Subjective Patient states she is ready for people to take care of her, she is too old. Patient is supine in bed pre tx and reluctantly consented to PT. During ambulation, patient complained of pain in her stomach and back, but gave no rating. Appearance Patient left upright in recliner post tx, with tray and call button within reach. Mental Status Patient Orientation: Normal For Age Attachments: Oxygen, IV Transfers SCALE: Activities may be completed with or without assistive devices. 9-Vrzgclpska-pwajyfi completes the activity by him/herself with no assistance from a helper. 5-Set-up or Clean-up Assistance-helper sets up or cleans up; patient completes activity. [place] assists only prior to or following the activity. 4-Supervision or Touching Assistance-helper provides verbal cues and/or touching/steadying and/or contact guard assistance as patient completes activity. Assistance may be provided throughout the activity or intermittently. 3-Partial/Moderate Assistance-helper does LESS THAN HALF the effort. [place] lifts, holds or supports trunk or limbs, but provides less than half the effort. 2-Substantial/Maximal Assistance-helper does MORE THAN HALF the effort. [place] lifts or holds trunk or limbs and provides more than half the effort. 7-Yhpqinqll-sppczj does ALL the effort. Patient does none of the effort to complete the activity. Or, the assistance of 2 or more helpers is required for the patient to complete the activity. If activity was not attempted, code reason: 7-Patient Refused. 9-Not Applicable-not attempted and the patient did not perform the activity before the current illness, exacerbation or injury. 10-Not Attempted due to Environmental Limitations-(lack of equipment, weather restraints, etc.). 88-Not Attempted due to Medical Conditions or Safety Concerns. Roll Left & Right (QC): 4 Sit to Lying (QC): 4 Lying to Sitting/Side of Bed(Q: 4 Sit to Stand (QC): 4 Chair/Xtu-jy-Mbmsh Xfer(QC): 4 Toilet Transfer (QC): 4 CGA x1 utilized. Patient steady with transfers, but slow. Weight Bearing Right Lower Extremity: Right Full Weight Bearing Left Lower Extremity: Left Full Weight Bearing Gait Training Does the Patient Walk?: Yes Distance: 15' x1, 20' x1 Walk 10 feet (QC): 4 Gait Persons Needed: 1 Gait Assistive Device: FWW CGA x1 utilized. Patient walks with hunched posture, slowly. Patient able to maintain balance throughout ambulation. Exercises Supine Ex: Ankle pumps Supine Reps: 15 Assessment Current Status: Fair Progress Patient continues to self-limit activity. Continue to address strength, mobility, and functional impairments as the patient allows. Patient requires time to complete all functional tasks due to age and weakness/debility. (self limits) PT Skid Man Goals Long-Term Goals PT Long-Term Goals Time Frame: Jul 13, 2020 Roll Left & Right (QC): 6 Sit to Lying (QC): 6 Lying-Sitting on Side/Bed(QC): 6 Sit to Stand (QC): 6 Chair/Kas-ye-Miamm Xfer(QC): 6 Toilet Transfer (QC): 6 Car Transfer (QC): 6 Does the Patient Walk: Yes Walk 10 feet (QC): 6 Walk 50ft with 2 Turns (QC): 6 Walk 150 ft (QC): 6 Walking 10ft on Uneven Surface: 6 PT Plan Problem List Problem List: Activity Tolerance, Functional Strength, Safety, Gait Treatment/Plan Treatment Plan: Continue Plan of Care Treatment Plan: Bed Mobility, Education, Functional Activity Brandie, Functional Strength, Gait, Safety, Therapeutic Exercise, Transfers Treatment Duration: Jul 13, 2020 Frequency: 6 times per week Estimated Hrs Per Day: .25 hour per day Time/GCodes Time In: 0938 Time Out: 1004 Total Billed Treatment Time: 26 Total Billed Treatment 1 visit: FA x2: 26' LUZ MARIA ONEIL PT Jul 03, 2020 10:34
--- NOTE | 2020-07-03 11:04 | Occ Therapy Progress Note ---
Therapy Progress Note Pt being taken to x-ray at this time, OT will attempt tx again this afternoon. 1100 MEME MAYER OT Jul 03, 2020 11:04
--- NOTE | 2020-07-03 11:17 | Progress Note - Hospitalist ---
REGINA DOLL MED STUDENT 07/03/20 1117: Subjective HPI/CC On Admission Date Seen by Provider: Jul 03, 2020 Time Seen by Provider: 08:00 Subjective/Events-last exam Pt awake and lying in bed upon entry. Pt is less enthusiastic and talkative than yesterday. Pt c/o of generalized pain attributed to her fibromyalgia. LUQ pain continues and generalized abdominal tenderness to palpation. Midline placed before my visit. Pt expresses dislike of being poked and prodded. Pt NPO for lap cholecystectomy with EGD/colonoscopy tomorrow by Dr. Cooper. Review of Systems General: No Chills; Fatigue HEENT: No Head Aches, No Sinus Congestion Pulmonary: Dyspnea, Cough Cardiovascular: No: Chest Pain, Palpitations, Edema Gastrointestinal: Nausea, Abdominal Pain (LUQ); No: Vomiting Genitourinary: No Dysuria, No Hematuria Musculoskeletal: other (generalized pain due to fibromyalgia) Neurological: Weakness; No: Confusion Objective Exam Vital Signs Vital Signs Date Time Temp Pulse Resp B/P (MAP) Pulse Ox O2 Delivery O2 Flow Rate FiO2 07/03/20 08:00 35.9 82 20 127/63 (84) 98 Nasal Cannula 1.00 06/27/20 21:24 21 Capillary Refill : Less Than 3 Seconds General Appearance: No Apparent Distress, WD/WN HEENT: PERRL/EOMI, Moist Mucous Membranes Neck: Full Range of Motion, Normal Inspection, Supple Respiratory: Chest Non Tender, Lungs Clear, No Accessory Muscle Use, No Respiratory Distress, Crackles Cardiovascular: No Edema, No Gallop, No Murmur, Irregularly Irregular Gastrointestinal: Normal Bowel Sounds, Soft, Tenderness (generalized) Rectal: Deferred Back: No Vertebral Tenderness Extremity: Normal Inspection, Non Tender, No Calf Tenderness, No Pedal Edema Neurologic/Psychiatric: Alert, Oriented x3, No Motor/Sensory Deficits, Normal Mood/Affect Skin: Normal Color, Warm/Dry Results/Procedures Lab Laboratory Tests 07/03/20 05:27 Patient resulted labs reviewed. Assessment/Plan Assessment and Plan Assess & Plan/Chief Complaint ASSESSMENT: R Hip fracture UTI Reported blood in stool LUQ pain- possible acalculous cholecystitis HTN Poorly controlled diabetes COPD Hx AFib Anemia - 10.5 PLAN: Pain management Continue abx for UTI Monitor labs (Zachary) continue to hold ASA & eliquis for suspected GI bleed (Kenneth) HIDA scan showed normal ejection fraction (Kenneth) Laprascopic cholecystectomy with EGD/ colonoscopy scheduled for tomorrow Appreciate Dr. Bello recs Appreciate Dr. Samuel recs Obtain information regarding orthopedic surgeon for hip fracture SHEREE PAT DO 07/04/20 0554: Subjective Subjective/Events-last exam Pt doing pretty well today EGD, Colonoscopy, and Cholecystectomy scheduled for tomorrow by Dr. Cooper Magnesium of 1.1 was replaced with 2 grams of IV magnesium Midline was placed today Hgb stable Cardiology and Dr. Cooper appreciated Review of Systems General: Fatigue Gastrointestinal: Abdominal Pain (LUQ) Objective Exam General Appearance: No Apparent Distress, WD/WN, Chronically ill, Obese Respiratory: Lungs Clear Cardiovascular: Irregularly Irregular Neurologic/Psychiatric: Alert, Oriented x3, No Motor/Sensory Deficits, Normal Mood/Affect Assessment/Plan Assessment and Plan Assess & Plan/Chief Complaint Choly and EGD and Colonoscopy tomorrow Supervisory-Addendum Brief Verification & Attestation Participated in pt care: history, MDM, physical Personally performed: exam, history, MDM, supervision of care Care discussed with: Medical Student Procedures: n/a Results interpretation: Verified all documentation Verification and Attestation of Medical Student E/M Service A medical student performed and documented this service in my presence. I reviewed and verified all information documented by the medical student and made modifications to such information, when appropriate. I personally performed the physical exam and medical decision making. Sheree Pat, Jul 04, 2020,05:53 REGINA DOLL MED STUDENT Jul 03, 2020 11:17 SHEREE PAT DO Jul 04, 2020 05:54
--- NOTE | 2020-07-03 11:29 | Progress Note - Cardiology ---
Cardiology SOAP Progress Note Objective: I&O/Vital Signs 07/05/20 07/05/20 07/05/20 07/05/20 00:00 01:00 01:11 04:00 Temp 36.0 36.1 Pulse 84 94 98 Resp 20 20 B/P (MAP) 136/72 (93) 137/84 (101) Pulse Ox 98 93 94 O2 Delivery Nasal Cannula Nasal Cannula Nasal Cannula O2 Flow Rate 2.00 2.00 2.00 07/05/20 07/05/20 06:44 07:59 Temp 36.9 Pulse 88 93 Resp 20 B/P (MAP) 143/68 (93) Pulse Ox 97 O2 Delivery Nasal Cannula O2 Flow Rate 2.00 07/05/20 00:00 Intake Total 250 ml Output Total 350 ml Balance -100 ml Weight (Pounds): 219 Weight (Ounces): 1.0 Weight (Calculated Kilograms): 99.934637 Constitutional: AAO x 3, well-developed, well-nourished Respiratory: No accessory muscle use, No respiratory distress; chest expansion is symmetric, chest is bilaterally symmetric, lungs clear to auscultation Cardiovascular: irregularly irregular; No JVD; S1 and S2 Gastrointestional: No tender; soft, round, audible bowel sounds Extremities: no lower extremity edema bilateral Neurologic/Psychiatric: grossly intact (moves all extremities) Skin: No rash on exposed areas, No ulcerations on exposed areas Results/Procedures: Labs Laboratory Tests 07/04/20 10:59: Glucometer 89 07/04/20 13:01: Glucometer 118H 07/04/20 15:04: Glucometer 150H 07/04/20 16:08: Glucometer 178H 07/04/20 20:02: Glucometer 205H 07/05/20 05:06: White Blood Count 10.1, Red Blood Count 3.80, Hemoglobin 11.0L, Hematocrit 36, Mean Corpuscular Volume 95, Mean Corpuscular Hemoglobin 29, Mean Corpuscular Hemoglobin Concent 31L, Red Cell Distribution Width 15.7H, Platelet Count 197, Mean Platelet Volume 11.8, Immature Granulocyte % (Auto) 1, Neutrophils (%) (Auto) 79H, Lymphocytes (%) (Auto) 11L, Monocytes (%) (Auto) 8, Eosinophils (%) (Auto) 1, Basophils (%) (Auto) 1, Neutrophils # (Auto) 8.0H, Lymphocytes # (Auto) 1.1, Monocytes # (Auto) 0.8, Eosinophils # (Auto) 0.1, Basophils # (Auto) 0.1, Immature Granulocyte # (Auto) 0.1, Sodium Level 137, Potassium Level 4.9, Chloride Level 100, Carbon Dioxide Level 27, Anion Gap 10, Blood Urea Nitrogen 8, Creatinine 0.92, Estimat Glomerular Filtration Rate 58, BUN/Creatinine Ratio 9, Glucose Level 108H, Calcium Level 8.7, Corrected Calcium 9.2, Magnesium Level 1.8, Total Bilirubin 0.5, Aspartate Amino Transf (AST/SGOT) 58H, Alanine Ami notransferase (ALT/SGPT) 33, Alkaline Phosphatase 110, Total Protein 6.3L, Albumin 3.4 Microbiology 06/27/20 Urine Culture - Final, Complete NO GROWTH A/P: Assessment: Chronic a-fib with controlled rate - OAC, but Eliquis is currently being held d/t concerns of GIB CAD - h/o coronary stent placed 4-5 yrs ago at [facility] Echocardiogram of 06-29-20 showed LVEF 60-65%. LA mildly dilated. H/o gastrointestinal bleed - Dr Young and Dr Cooper managing UTI - management per Medical services COPD H/O TIA's HTN HLD Fibromyalgia Carotid arterial dz - details unknown Right hip fracture following a non-syncopal fall in May 2020 - awaiting eval with orthopedic services in [place] N/V of undetermined etiology Plan: Complex management GIB for which endoscopy has been advised - management per GI services We advise source of bleeding be evaluated and treated so that OAC may be resumed d/t risk of CVA from chronic a-fib Advise resumption of ASA d/t reported h/o CAD and carotid arterial dz Request records from [facility] Cardiology services Monitor lab Replace electrolytes as indicated Probable cholecystectomy/EGD/colo tomorrow per MELISSA Hankins Jul 03, 2020 11:29
[2020-07-03] MEDS: ONDANSETRON 4 MG (ZOFRAN) ORAL DISSOLVE TAB PO PRN (11:39)
[2020-07-03] MEDS ORDERED: polyethylene glycoL POWDER 17 GM (MIRALAX) PACK PO ONE (11:45)
[2020-07-03] MEDS ORDERED: polyethylene glycoL POWDER 17 GM (MIRALAX) PACK PO NR (11:45)
[2020-07-03 12:00] VITALS: BP 149/66
--- NOTE | 2020-07-03 12:37 | Diagnostic Imaging Report ---
INDICATION: Preoperative evaluation. History of hip fracture COMPARISON: None. FINDINGS: AP view of the pelvis and 2 dedicated radiographic views of the right hip were obtained. There is no fracture, dislocation, bone destruction, or radiopaque foreign body. The visualized pelvic osseous structures and the SI joints demonstrate no acute fracture or dislocation. There is no bone destruction or radiopaque foreign body. The surrounding soft tissue structures are unremarkable. IMPRESSION: 1. No definitive fracture of the right hip is identified on today's exam. If there is persistent pain or clinical concern for fracture, correlation with MRI is recommended. If MRI is contraindicated, CT could be performed. Dictated by: Dictated on workstation # [id number]
--- NOTE | 2020-07-03 13:16 | Progress Note - Cardiology ---
Cardiology SOAP Progress Note Subjective: Vague abd discomfort Nausea and vomiting No cp or palp or syncope Shortness of breath wit activity Gen malaise and weakness Objective: I&O/Vital Signs 07/03/20 07/03/20 07/03/20 07/03/20 04:00 06:44 06:44 06:49 Temp 36.0 Pulse 67 92 Resp 20 B/P (MAP) 134/65 (88) Pulse Ox 93 94 94 O2 Delivery Nasal Cannula Nasal Cannula Nasal Cannula O2 Flow Rate 1.00 1.00 1.00 07/03/20 07/03/20 07/03/20 08:00 08:00 12:15 Temp 35.9 Pulse 82 88 Resp 20 B/P (MAP) 127/63 (84) Pulse Ox 98 98 O2 Delivery Room Air Nasal Cannula O2 Flow Rate 1.00 07/03/20 00:00 Intake Total 450 ml Output Total 100 ml Balance 350 ml Weight (Pounds): 219 Weight (Ounces): 1.0 Weight (Calculated Kilograms): 99.889618 Constitutional: AAO x 3, well-developed, well-nourished Respiratory: No accessory muscle use, No respiratory distress; chest expansion is symmetric, chest is bilaterally symmetric, lungs clear to auscultation Cardiovascular: irregularly irregular; No JVD; S1 and S2 Gastrointestional: No tender; soft, round, audible bowel sounds Extremities: no lower extremity edema bilateral Neurologic/Psychiatric: grossly intact (moves all extremities) Skin: No rash on exposed areas, No ulcerations on exposed areas Results/Procedures: Labs Laboratory Tests 07/02/20 15:23: Glucometer 211H 07/02/20 20:16: Glucometer 218H 07/03/20 04:58: Glucometer 116H 07/03/20 05:27: White Blood Count 6.3, Red Blood Count 3.62L, Hemoglobin 10.5L, Hematocrit 34L, Mean Corpuscular Volume 94, Mean Corpuscular Hemoglobin 29, Mean Corpuscular Hemoglobin Concent 31L, Red Cell Distribution Width 15.5H, Platelet Count 171, Mean Platelet Volume 11.7, Immature Granulocyte % (Auto) 2, Neutrophils (%) (Auto) 58, Lymphocytes (%) (Auto) 23, Monocytes (%) (Auto) 10, Eosinophils (%) (Auto) 5, Basophils (%) (Auto) 1, Neutrophils # (Auto) 3.7, Lymphocytes # (Auto) 1.5, Monocytes # (Auto) 0.7, Eosinophils # (Auto) 0.3, Basophils # (Auto) 0.1, Immature Granulocyte # (Auto) 0.1, Sodium Level 140, Potassium Level 4.0, Chloride Level 104, Carbon Dioxide Level 25, Anion Gap 11, Blood Urea Nitrogen 6L, Creatinine 0.89, Estimat Glomerular Filtration Rate > 60, BUN/Creatinine Ratio 7, Glucose Level 115H, Calcium Level 8.3L, Corrected Calcium 9.0, Magnesium Level 1.1*L, Total Bilirubin 0.3, Aspartate Amino Transf (AST/SGOT) 13, Alanine Aminotransferase (ALT/SGPT) 11, Alkaline Phosphatase 98, Total Protein 5.7L, Albumin 3.1L, Thyroid Stimulating Hormone (TSH) 1.07 07/03/20 10:10: Coronavirus 2019 ([facility]) Negative 07/03/20 11:18: Glucometer 268H Microbiology 06/27/20 Urine Culture - Final, Complete NO GROWTH A/P: Assessment: Chronic a-fib with controlled rate - OAC, but Eliquis is currently being held d/t concerns of GIB CAD - h/o coronary stent placed 4-5 yrs ago at [facility] Echocardiogram of 06-29-20 showed LVEF 60-65%. LA mildly dilated. H/o gastrointestinal bleed - Dr Young and Dr Cooper managing UTI - management per Medical services COPD H/O TIA's HTN HLD Fibromyalgia Carotid arterial dz - details unknown Right hip fracture following a non-syncopal fall in May 2020 - awaiting eval with orthopedic services in [place] N/V of undetermined etiology Plan: Complex management GIB for which endoscopy has been advised - management per GI services We advise source of bleeding be evaluated and treated so that OAC may be resumed d/t risk of CVA from chronic a-fib Advise resumption of ASA d/t reported h/o CAD and carotid arterial dz Awaiting records from [facility] Cardiology services Monitor lab Replace electrolytes as indicated Probable cholecystectomy/EGD/colo tomorrow per MICHELLE Guo MD FACP [facility] Jul 03, 2020 13:16
--- NOTE | 2020-07-03 14:00 | Occupational Ther Daily Note ---
OT Current Status-Daily Note Subjective Pt seated in recliner, agreeable to OT tx. Pt states nauseous from colonoscopy prep. ADL-Treatment Therapy Code Descriptions/Definitions Functional [place] Measure: 0=Not Assessed/NA 4=Minimal Assistance 1=Total Assistance 5=Supervision or Setup 2=Maximal Assistance 6=Modified [place] 3=Moderate Assistance 7=Complete IndependenceSCALE: Activities may be completed with or without assistive devices. 6-Btjcbejorj-emkvinn completes the activity by him/herself with no assistance from a helper. 5-Set-up or Clean-up Assistance-helper sets up or cleans up; patient completes activity. [place] assists only prior to or following the activity. 4-Supervision or Touching Assistance-helper provides verbal cues and/or touching/steadying and/or contact guard assistance as patient completes activity. Assistance may be provided throughout the activity or intermittently. 3-Partial/Moderate Assistance-helper does LESS THAN HALF the effort. [place] lifts, holds or supports trunk or limbs, but provides less than half the effort. 2-Substantial/Maximal Assistance-helper does MORE THAN HALF the effort. [place] lifts or holds trunk or limbs and provides more than half the effort. 5-Wdiaiyhfd-vzmxvd does ALL the effort. Patient does none of the effort to complete the activity. Or, the assistance of 2 or more helpers is required for the patient to complete the activity. If activity was not attempted, code reason: 7-Patient Refused. 9-Not Applicable-not attempted and the patient did not perform the activity before the current illness, exacerbation or injury. 10-Not Attempted due to Environmental Limitations-(lack of equipment, weather restraints, etc.). 88-Not Attempted due to Medical Conditions or Safety Concerns. Oral Hygiene (QC): 7 Shower/Bathe Self (QC): 7 Toileting Hygiene (QC): 7 Other Treatment Pt declined completing ADLs, although OT encouraged pt and educated pt on benefits. Pt agreeable to UE exercise with moderate encouragement after education on purpose and benefits. In order to increase BUE strength and functional activity tolerance, pt completed x15 reps BUE finger flexion/extension, elbow flexion/extension, and shoulder flexion/extension. Pt required rest breaks between exercises. Education OT Patient Education: Correct positioning, Modified ADL techniques, Progress toward Goal/Update tx plan, Purpose of tx/functional activities Teaching Recipient: Patient Teaching Methods: Discussion Response to Teaching: Verbalize Understanding OT Proof Load Mechanic Goals Custodial Goals Time Frame: Jul 09, 2020 Eating (QC): 6 Oral Hygiene (QC): 6 Toileting Hygiene (QC): 6 Shower/Bathe Self (QC): 6 Upper Body Dressing (QC): 6 Lower Body Dressing (QC): 3 On/Off Footwear (QC): 88 1=Demonstrate adherence to instructed precautions during ADL tasks. 2=Patient will verbalize/demonstrate understanding of assistive devices/modifications for ADL. 3=Patient will improve strength/tolerance for activity to enable patient to perform ADL's. OT Education/Plan Problem List/Assessment Assessment: Decreased Activ Tolerance, Decreased UE Strength, Impaired I ADL's, Impaired Self-Care Skills Discharge Recommendations Plan/Recommendations: Continue POC Treatment Plan/Plan of Care Patient would benefit from OT for education, treatment and training to promote independence in ADL's, mobility, safety and/or upper extremity function for ADL's. Plan of Care: ADL Retraining, Caregiver Training, Functional Mobility, UE Funct Exercise/Act, UE Neuromus Re-Ed/Coord Treatment Duration: Jul 09, 2020 Frequency: 5 times per week Estimated Hrs Per Day: .25 hour per day Agreement: Yes Rehab Potential: Fair Time/GCodes Start Time: 13:40 Stop Time: 13:50 Total Time Billed (hr/min): 10 Billed Treatment Time 1, EX MEME MAYER OT Jul 03, 2020 14:00
[2020-07-03 15:56] VITALS: BP 135/72
--- NOTE | 2020-07-03 16:31 | Progress Note ---
Subjective Date Seen by a Provider: Jul 03, 2020 Time Seen by a Provider: 16:00 Subjective/Events-last exam doing ok. did have vomiting after magnesium citrate. switched to miralax. no fever/chills. Objective Exam Vital Signs Date Time Temp Pulse Resp B/P (MAP) Pulse Ox O2 Delivery O2 Flow Rate FiO2 07/03/20 15:56 36.2 106 18 135/72 (93) 96 Nasal Cannula 1.00 07/03/20 14:28 94 Nasal Cannula 1.00 07/03/20 12:15 88 07/03/20 12:00 35.7 76 20 149/66 (93) 94 Nasal Cannula 1.00 07/03/20 08:00 35.9 82 20 127/63 (84) 98 Nasal Cannula 1.00 07/03/20 08:00 98 Room Air 07/03/20 06:49 92 07/03/20 06:44 94 Nasal Cannula 1.00 07/03/20 06:44 94 Nasal Cannula 1.00 07/03/20 04:00 36.0 67 20 134/65 (88) 93 Nasal Cannula 1.00 07/03/20 01:00 99 07/03/20 00:00 35.4 103 20 148/65 (92) 96 Nasal Cannula 1.00 07/02/20 21:18 94 Nasal Cannula 1.00 07/02/20 21:15 Room Air 07/02/20 19:47 35.8 107 20 138/93 (108) 97 Nasal Cannula 1.00 07/02/20 19:00 117 07/02/20 18:46 93 Nasal Cannula 1.00 07/02/20 18:45 93 Nasal Cannula 1.00 I & O 07/03/20 07:00 Intake Total 550 ml Output Total 300 ml Balance 250 ml Capillary Refill : Less Than 3 Seconds General Appearance: No Apparent Distress HEENT: PERRL/EOMI Neck: Full Range of Motion Respiratory: Chest Non Tender, Lungs Clear Cardiovascular: Regular Rate, Rhythm Gastrointestinal: normal bowel sounds, soft, tenderness Extremity: Normal Capillary Refill Neurologic/Psychiatric: Alert, Oriented x3 Skin: Normal Color Lymphatic: No Adenopathy Results Lab Laboratory Tests 07/02/20 20:16: Glucometer 218H 07/03/20 04:58: Glucometer 116H 07/03/20 05:27: White Blood Count 6.3, Red Blood Count 3.62L, Hemoglobin 10.5L, Hematocrit 34L, Mean Corpuscular Volume 94, Mean Corpuscular Hemoglobin 29, Mean Corpuscular Hemoglobin Concent 31L, Red Cell Distribution Width 15.5H, Platelet Count 171, Mean Platelet Volume 11.7, Immature Granulocyte % (Auto) 2, Neutrophils (%) (Auto) 58, Lymphocytes (%) (Auto) 23, Monocytes (%) (Auto) 10, Eosinophils (%) (Auto) 5, Basophils (%) (Auto) 1, Neutrophils # (Auto) 3.7, Lymphocytes # (Auto) 1.5, Monocytes # (Auto) 0.7, Eosinophils # (Auto) 0.3, Basophils # (Auto) 0.1, Immature Granulocyte # (Auto) 0.1, Sodium Level 140, Potassium Level 4.0, Chloride Level 104, Carbon Dioxide Level 25, Anion Gap 11, Blood Urea Nitrogen 6L, Creatinine 0.89, Estimat Glomerular Filtration Rate > 60, BUN/Creatinine Ratio 7, Glucose Level 115H, Calcium Level 8.3L, Corrected Calcium 9.0, Magnesium Level 1.1*L, Total Bilirubin 0.3, Aspartate Amino Transf (AST/SGOT) 13, Alanine Aminotransferase (ALT/SGPT) 11, Alkaline Phosphatase 98, Total Protein 5.7L, Albumin 3.1L, Thyroid Stimulating Hormone (TSH) 1.07 07/03/20 10:10: Coronavirus 2019 ([facility]) Negative 07/03/20 11:18: Glucometer 268H 07/03/20 15:35: Glucometer 223H Microbiology 06/27/20 Urine Culture - Final, Complete NO GROWTH Assessment/Plan Assessment/Plan Assess & Plan/Chief Complaint symptomatic biliary dyskinesia, diarrhea, dark stools. plan for laparoscopic cholecystectomy, EGD, and colonoscopy tomorrow. PONCHO BROWN MD Jul 03, 2020 16:31
--- NOTE | 2020-07-03 16:32 | Progress Note-Pre Operative ---
Pre-Operative Progress Note H&P Reviewed The H&P was reviewed, patient examined and no changes noted. Date Seen by Provider: Jul 03, 2020 Time Seen by Provider: 16:00 Date H&P Reviewed: Jul 03, 2020 Time H&P Reviewed: 16:00 Pre-Operative Diagnosis: symptomatic biliary dyskinesia, diarrhea, dark stools. PONCHO BROWN MD Jul 03, 2020 16:32
[2020-07-03] MEDS: polyethylene glycoL POWDER 17 GM (MIRALAX) PACK PO SCH (17:40)
[2020-07-03 19:51] VITALS: BP 151/94
[2020-07-03] MEDS: AMITRIPTYLINE 25 MG (ELAVIL) TAB PO SCH (21:07)
[2020-07-03] MEDS: meTOproloL SUCCINATE 50 MG (TOPROL XL) TAB PO SCH (21:07)
[2020-07-03] MEDS: MONTELUKAST 10 MG (SINGULAIR) TAB PO SCH (21:07)
[2020-07-04] VITALS (18 sets, daily range): BP systolic 101–181; BP diastolic 50–113
[2020-07-04] MEDS: RT-ALBUTEROL SULF 2.5 MG/3 ML PRE-MIX VIAL INH SCH ×6 (02:05→21:18)
[2020-07-04] MEDS: VALACYCLOVIR 500 MG TAB (VALTREX) PO SCH ×3 (04:48→21:39)
[2020-07-04 05:12] LABS: BASOPHILS # (AUTO) 0.1 10^3/uL (0.0-0.1); BASOPHILS % (AUTO) 1 % (0-10); EOSINOPHILS # (AUTO) 0.4 10^3/uL (0.0-0.3); EOSINOPHILS % (AUTO) 6 % (0-10); HEMATOCRIT 35 % (35-52); HEMOGLOBIN 10.5 g/dL (11.5-16.0); LYMPHOCYTES # (AUTO) 1.4 10^3/uL (1.0-4.0); LYMPHOCYTES % (AUTO) 21 % (12-44); MEAN CORPUSCULAR HEMOGLOBIN 29 pg (25-34); MEAN CORPUSCULAR HGB CONC 30 g/dL (32-36); MEAN CORPUSCULAR VOLUME 95 fL (80-99); MEAN PLATELET VOLUME 11.5 fL (9.0-12.2); MONOCYTES # (AUTO) 0.6 10^3/uL (0.0-1.0); MONOCYTES % (AUTO) 9 % (0-12); NEUTROPHILS # (AUTO) 4.2 10^3/uL (1.8-7.8); NEUTROPHILS % (AUTO) 61 % (42-75); PLATELET COUNT 199 10^3/uL (130-400); WHITE BLOOD COUNT 6.9 10^3/uL (4.3-11.0)
[2020-07-04 05:25] LABS: ALBUMIN 3.3 GM/DL (3.2-4.5); CHLORIDE 101 MMOL/L (98-107); POTASSIUM 4.5 MMOL/L (3.6-5.0); SODIUM 138 MMOL/L (135-145)
[2020-07-04 05:26] LABS: CALCIUM 8.3 MG/DL (8.5-10.1)
[2020-07-04 05:27] LABS: GLUCOSE 92 MG/DL (70-105); TOTAL PROTEIN 6.3 GM/DL (6.4-8.2)
[2020-07-04 05:28] LABS: CARBON DIOXIDE 26 MMOL/L (21-32)
[2020-07-04 05:29] LABS: BILIRUBIN,TOTAL 0.3 MG/DL (0.1-1.0)
[2020-07-04 05:31] LABS: ALKALINE PHOSPHATASE 97 U/L (40-136); CREATININE SERUM 0.85 MG/DL (0.60-1.30); GFR ESTIMATED > 60
[2020-07-04 05:32] LABS: BUN/CREATININE RATIO 8
[2020-07-04 05:34] LABS: ALANINE AMINOTRANSFERASE 14 U/L (0-55)
[2020-07-04] MEDS: RT--FLUTICASONE/SALMETEROL 113-14 (AIRDUO RespiCLICK) IH SCH ×2 (06:06→18:41)
[2020-07-04] MEDS: inSUlin ASPART (NovoLOG) 1 UNIT/0.01 ML (CHARGE PER UNIT) SC SCH ×4 (06:29→21:39)
[2020-07-04] MEDS: SPIRONOLACTONE 25 MG (ALDACTONE) TAB PO SCH (09:32)
[2020-07-04] MEDS: DOCUSATE SODIUM 100 MG (COLACE) CAP PO SCH ×2 (09:32→21:39)
[2020-07-04] MEDS: MAGNESIUM OXIDE (MAG-OX)400 MG TAB PO SCH (09:32)
[2020-07-04] MEDS: GLIMEPIRIDE 2 MG (AMARYL) TAB PO SCH (09:32)
[2020-07-04] MEDS: ROSUVASTATIN 20 MG (CRESTOR) TABLET PO SCH (09:32)
[2020-07-04] MEDS: LORATADINE (CLARITIN) 10 MG TAB PO SCH (09:32)
[2020-07-04] MEDS: GABAPENTIN 100 MG (NEURONTIN) CAP PO SCH ×2 (09:32→21:39)
[2020-07-04] MEDS: CALCIUM CARBONATE 500 MG (TUMS) TAB.CHEW PO SCH (09:32)
[2020-07-04] MEDS: lisINopril 20 MG (PRINIVIL) TABLET PO SCH ×2 (09:33→21:39)
[2020-07-04] MEDS: PANTOPRAZOLE 20 MG TABLET (PROTONIX) PO SCH (09:33)
[2020-07-04] MEDS: MULTIVIT W/MINERALS TAB (THERAGRAN M) PO SCH (09:33)
--- NOTE | 2020-07-04 09:51 | Progress Note - Cardiology ---
Cardiology SOAP Progress Note Subjective: Sitting up in recliner NPO this morning for cholecystectomy and endoscopies today No c/o CP or SOB Chronic muscle and joint pain which is unchanged Objective: I&O/Vital Signs 07/05/20 07/05/20 07/05/20 07/05/20 00:00 01:00 01:11 04:00 Temp 36.0 36.1 Pulse 84 94 98 Resp 20 20 B/P (MAP) 136/72 (93) 137/84 (101) Pulse Ox 98 93 94 O2 Delivery Nasal Cannula Nasal Cannula Nasal Cannula O2 Flow Rate 2.00 2.00 2.00 07/05/20 07/05/20 06:44 07:59 Temp 36.9 Pulse 88 93 Resp 20 B/P (MAP) 143/68 (93) Pulse Ox 97 O2 Delivery Nasal Cannula O2 Flow Rate 2.00 07/05/20 00:00 Intake Total 250 ml Output Total 350 ml Balance -100 ml Weight (Pounds): 219 Weight (Ounces): 1.0 Weight (Calculated Kilograms): 99.656667 Constitutional: AAO x 3, well-developed, well-nourished Respiratory: No accessory muscle use, No respiratory distress; chest expansion is symmetric, chest is bilaterally symmetric, lungs clear to auscultation Cardiovascular: irregularly irregular; No JVD; S1 and S2 Gastrointestional: No tender; soft, round, audible bowel sounds Extremities: no lower extremity edema bilateral Neurologic/Psychiatric: grossly intact (moves all extremities) Skin: No rash on exposed areas, No ulcerations on exposed areas Results/Procedures: Labs Laboratory Tests 07/04/20 10:59: Glucometer 89 07/04/20 13:01: Glucometer 118H 07/04/20 15:04: Glucometer 150H 07/04/20 16:08: Glucometer 178H 07/04/20 20:02: Glucometer 205H 07/05/20 05:06: White Blood Count 10.1, Red Blood Count 3.80, Hemoglobin 11.0L, Hematocrit 36, Mean Corpuscular Volume 95, Mean Corpuscular Hemoglobin 29, Mean Corpuscular Hemoglobin Concent 31L, Red Cell Distribution Width 15.7H, Platelet Count 197, Mean Platelet Volume 11.8, Immature Granulocyte % (Auto) 1, Neutrophils (%) (Auto) 79H, Lymphocytes (%) (Auto) 11L, Monocytes (%) (Auto) 8, Eosinophils (%) (Auto) 1, Basophils (%) (Auto) 1, Neutrophils # (Auto) 8.0H, Lymphocytes # (Auto) 1.1, Monocytes # (Auto) 0.8, Eosinophils # (Auto) 0.1, Basophils # (Auto) 0.1, Immature Granulocyte # (Auto) 0.1, Sodium Level 137, Potassium Level 4.9, Chloride Level 100, Carbon Dioxide Level 27, Anion Gap 10, Blood Urea Nitrogen 8, Creatinine 0.92, Estimat Glomerular Filtration Rate 58, BUN/Creatinine Ratio 9, Glucose Level 108H, Calcium Level 8.7, Corrected Calcium 9.2, Magnesium Level 1.8, Total Bilirubin 0.5, Aspartate Amino Transf (AST/SGOT) 58H, Alanine Aminotransferase (ALT/SGPT) 33, Alkaline Phosphatase 110, Total Protein 6.3L, Albumin 3.4 Microbiology 06/27/20 Urine Culture - Final, Complete NO GROWTH A/P: Assessment: Chronic a-fib with controlled rate - OAC, but Eliquis is currently being held d/t concerns of GIB CAD - h/o coronary stent placed 4-5 yrs ago at [facility] Echocardiogram of 06-29-20 showed LVEF 60-65%. LA mildly dilated. H/o gastrointestinal bleed - Dr Young and Dr Cooper managing UTI - management per Medical services COPD H/O TIA's HTN HLD Fibromyalgia Carotid arterial dz - details unknown Right hip fracture following a non-syncopal fall in May 2020 - awaiting eval with orthopedic services in [place] N/V of undetermined etiology Plan: Complex management GIB for which endoscopy has been advised - management per GI services We advise source of bleeding be evaluated and treated so that OAC may be resumed d/t risk of CVA from chronic a-fib Advise resumption of ASA d/t reported h/o CAD and carotid arterial dz Awaiting records from [facility] Cardiology services Monitor lab Replace electrolytes as indicated Cholecystectomy/EGD/colo today per MELISSA Hankins Jul 04, 2020 09:51
[2020-07-04] MEDS ORDERED: D5 LR IV SOLUTION 1,000 ML IV ONE (11:04)
--- NOTE | 2020-07-04 11:26 | Occupational Ther Daily Note ---
OT Current Status-Daily Note Subjective Pt seated in recliner, daughter present. Pt required moderate encouragement to participate in tx. Pt's daughter indicates pt asks for assistance at home with tasks that pt is able to do. ADL-Treatment Therapy Code Descriptions/Definitions Functional [place] Measure: 0=Not Assessed/NA 4=Minimal Assistance 1=Total Assistance 5=Supervision or Setup 2=Maximal Assistance 6=Modified [place] 3=Moderate Assistance 7=Complete IndependenceSCALE: Activities may be completed with or without assistive devices. 6-Wbthbjsikj-soijaeu completes the activity by him/herself with no assistance from a helper. 5-Set-up or Clean-up Assistance-helper sets up or cleans up; patient completes activity. [place] assists only prior to or following the activity. 4-Supervision or Touching Assistance-helper provides verbal cues and/or touching/steadying and/or contact guard assistance as patient completes activity. Assistance may be provided throughout the activity or intermittently. 3-Partial/Moderate Assistance-helper does LESS THAN HALF the effort. [place] lifts, holds or supports trunk or limbs, but provides less than half the effort. 2-Substantial/Maximal Assistance-helper does MORE THAN HALF the effort. [place] lifts or holds trunk or limbs and provides more than half the effort. 3-Qamgrgswu-ijofbx does ALL the effort. Patient does none of the effort to complete the activity. Or, the assistance of 2 or more helpers is required for the patient to complete the activity. If activity was not attempted, code reason: 7-Patient Refused. 9-Not Applicable-not attempted and the patient did not perform the activity before the current illness, exacerbation or injury. 10-Not Attempted due to Environmental Limitations-(lack of equipment, weather restraints, etc.). 88-Not Attempted due to Medical Conditions or Safety Concerns. Other Treatment In order to increase BUE strength and functional activity tolerance, pt completed x15 reps AROM of the following BUE exercises: shoulder flexion, elbow flexion/extension and finger flexion/extension. OT educated pt on the purpose and benefit of exercises, encouraging pt to complete 2-3 times throughout the day. Pt verbalized understanding, but then states her daughter will do the exercises for her, or that this OT can do the exercises for pt. OT again reiterated the importance of pt completing the exercises, she verbalized understanding. Pt's aide present, stating pt likes to use the BSC vs walking to the bathroom, pt states it is easier. OT educated pt on going to the bathroom instead of using the BSC, since she is able to and in order to continue with strengthening and increasing functional mobility. Post tx, pt seated in recliner, call light in reach and all needs met. Education OT Patient Education: Correct positioning, Energy conservation, Exercise prog tyson, Modified ADL techniques, Progress toward Goal/Update tx plan, Purpose of tx/functional activities, Rehab process, Safety issues Teaching Recipient: Patient Teaching Methods: Discussion Response to Teaching: Verbalize Understanding OT Floor Covering Printer Goals Penitentiary Goals Time Frame: Jul 09, 2020 Eating (QC): 6 Oral Hygiene (QC): 6 Toileting Hygiene (QC): 6 Shower/Bathe Self (QC): 6 Upper Body Dressing (QC): 6 Lower Body Dressing (QC): 3 On/Off Footwear (QC): 88 1=Demonstrate adherence to instructed precautions during ADL tasks. 2=Patient will verbalize/demonstrate understanding of assistive devices/modifications for ADL. 3=Patient will improve strength/tolerance for activity to enable patient to perform ADL's. OT Education/Plan Problem List/Assessment Assessment: Decreased Activ Tolerance, Decreased UE Strength, Impaired I ADL's, Impaired Self-Care Skills Discharge Recommendations Plan/Recommendations: Continue POC Treatment Plan/Plan of Care Patient would benefit from OT for education, treatment and training to promote independence in ADL's, mobility, safety and/or upper extremity function for ADL's. Plan of Care: ADL Retraining, Caregiver Training, Functional Mobility, UE Funct Exercise/Act, UE Neuromus Re-Ed/Coord Treatment Duration: Jul 09, 2020 Frequency: 5 times per week Estimated Hrs Per Day: .25 hour per day Agreement: Yes Rehab Potential: Fair Time/GCodes Start Time: 10:55 Stop Time: 11:10 Total Time Billed (hr/min): 15 Billed Treatment Time 1, EX MEME MAYER OT Jul 04, 2020 11:26
--- NOTE | 2020-07-04 11:49 | Progress Note - Hospitalist ---
REGINA DOLL MED STUDENT 07/04/20 1149: Subjective HPI/CC On Admission Date Seen by Provider: Jul 04, 2020 Time Seen by Provider: 08:30 Subjective/Events-last exam Pt asleep upon entry and easily woken. Pt states that she is tired today and is ready for the surgery. Unsure of what time surgery will be today. Pt notes aggravated knee pain and sore throat from being NPO today. Pt other walker doing well. No acute events over night. Review of Systems General: No Chills, No Fatigue HEENT: No Head Aches, No Dysphasia; Sore Throat Pulmonary: No Dyspnea, No Cough Cardiovascular: No: Chest Pain, Palpitations Gastrointestinal: No: Nausea, Vomiting Genitourinary: No Dysuria, No Incontinence Musculoskeletal: other (Knee pain) Neurological: No: Weakness, Incoordination Objective Exam Vital Signs Vital Signs Date Time Temp Pulse Resp B/P (MAP) Pulse Ox O2 Delivery O2 Flow Rate FiO2 07/04/20 12:38 36.2 72 18 139/84 (102) 92 Room Air 07/04/20 10:45 24 07/04/20 10:32 1.00 Capillary Refill : Less Than 3 Seconds General Appearance: No Apparent Distress, WD/WN HEENT: PERRL/EOMI, Moist Mucous Membranes Neck: Normal Inspection, Supple Respiratory: Chest Non Tender, Lungs Clear, No Accessory Muscle Use, No Respiratory Distress, Crackles Cardiovascular: No Edema, No Gallop, No Murmur, Irregularly Irregular Gastrointestinal: Normal Bowel Sounds, Soft, Tenderness (RUQ primarily with generalized tenderness to palpation) Rectal: Deferred Back: Normal Inspection, No Vertebral Tenderness Extremity: Normal Inspection, Normal Range of Motion, Non Tender, No Calf Tenderness, No Pedal Edema Neurologic/Psychiatric: Alert, Oriented x3, No Motor/Sensory Deficits, Normal Mood/Affect Skin: Normal Color, Warm/Dry Results/Procedures Lab Laboratory Tests 07/04/20 05:02 Patient resulted labs reviewed. Assessment/Plan Assessment and Plan Assess & Plan/Chief Complaint ASSESSMENT: R Hip fracture UTI Reported blood in stool RUQ pain- acalculous cholecystitis HTN Poorly controlled diabetes COPD Hx AFib Anemia - 10.5 PLAN: Pain management Continue abx for UTI Monitor labs (Zachary) continue to hold ASA & eliquis for suspected GI bleed (Kido) HIDA scan showed normal ejection fraction (Kenneth) Laprascopic cholecystectomy with EGD/ colonoscopy today Appreciate Dr. Bello recs Appreciate Dr. Samuel recs Obtain information regarding orthopedic surgeon for hip fracture CT of pelvis w/o contrast, right hip focus SHEREE PAT DO 07/05/20 0534: Subjective Subjective/Events-last exam Pt doing pretty well Waiting for choly, EGD and colonoscopy today Right hip fracture will be evaluated with CT scan of the pelvis without IV contrast and focus on the right hip after I spoke with radiology Labs are okay, Hgb of 10.5 Daughter at the bedside Review of Systems General: Fatigue, Malaise Objective Exam General Appearance: No Apparent Distress, WD/WN, Chronically ill, Obese Respiratory: Lungs Clear Cardiovascular: Irregularly Irregular Neurologic/Psychiatric: Alert, Oriented x3, No Motor/Sensory Deficits, Normal Mood/Affect Assessment/Plan Assessment and Plan Assess & Plan/Chief Complaint Check CT scan OR today Supervisory-Addendum Brief Verification & Attestation Participated in pt care: history, MDM, physical Personally performed: exam, history, MDM, supervision of care Care discussed with: Medical Student Procedures: n/a Results interpretation: Verified all documentation Verification and Attestation of Medical Student E/M Service A medical student performed and documented this service in my presence. I reviewed and verified all information documented by the medical student and made modifications to such information, when appropriate. I personally performed the physical exam and medical decision making. Sheree Pat, Jul 05, 2020,05:32 REGINA DOLL MED STUDENT Jul 04, 2020 11:49 SHEREE PAT DO Jul 05, 2020 05:34
[2020-07-04] MEDS ORDERED: LIDOCAINE PF 2% 5 ML (XYLOCAINE) VIAL ONE (11:57)
[2020-07-04] MEDS ORDERED: NEOSTIGMINE 3 MG/3 ML VIAL ONE (11:57)
[2020-07-04] MEDS ORDERED: ROCURONIUM 10 MG/ML 5 ML SYRINGE IV ONE (11:57)
[2020-07-04] MEDS ORDERED: SEVOFLURANE (ULTANE) 15 ML INHAL SOLN ONE ×2 (11:57→14:03)
[2020-07-04] MEDS ORDERED: proPOfol 200 MG/20 ML (DIPRIVAN) VIAL IV ONE (11:57)
[2020-07-04] MEDS ORDERED: GLYCOPYRROLATE 0.2 MG/ML (ROBINUL) 2 ML VIAL ONE (11:57)
[2020-07-04] MEDS ORDERED: fentaNYL INJ 100 MCG/2 ML AMP ONE (11:58)
[2020-07-04] MEDS ORDERED: MIDAZOLAM 2 MG/2 ML (VERSED) VIAL ONE (11:58)
--- NOTE | 2020-07-04 12:13 | Physical Therapy Daily Note ---
PT Daily Note-Current Subjective Pt. states she is thirsty and hungry and expecting surgery later today and is not interested in doing much activity but with do a little Pain Location: No Pain Reported Mental Status Patient Orientation: Normal For Age Attachments: Oxygen, Other-See Comments, IV Transfers SCALE: Activities may be completed with or without assistive devices. 8-Rihgsstmgz-zputair completes the activity by him/herself with no assistance from a helper. 5-Set-up or Clean-up Assistance-helper sets up or cleans up; patient completes activity. [place] assists only prior to or following the activity. 4-Supervision or Touching Assistance-helper provides verbal cues and/or touching/steadying and/or contact guard assistance as patient completes activity. Assistance may be provided throughout the activity or intermittently. 3-Partial/Moderate Assistance-helper does LESS THAN HALF the effort. [place] lifts, holds or supports trunk or limbs, but provides less than half the effort. 2-Substantial/Maximal Assistance-helper does MORE THAN HALF the effort. [place] lifts or holds trunk or limbs and provides more than half the effort. 4-Warvrsouj-bsaojy does ALL the effort. Patient does none of the effort to compl ete the activity. Or, the assistance of 2 or more helpers is required for the patient to complete the activity. If activity was not attempted, code reason: 7-Patient Refused. 9-Not Applicable-not attempted and the patient did not perform the activity before the current illness, exacerbation or injury. 10-Not Attempted due to Environmental Limitations-(lack of equipment, weather restraints, etc.). 88-Not Attempted due to Medical Conditions or Safety Concerns. sit to stand SBA to CGA Weight Bearing Right Lower Extremity: Right Full Weight Bearing Left Lower Extremity: Left Full Weight Bearing Gait Training Does the Patient Walk?: Yes Gait Assistive Device: FWW 100ft FWW min to CGA for positioning in FWW, safety and CGA, assist for O2 and IV as well, pts position in FWW needed instruction Exercises Seated Therapy Exercises: Ankle pumps, Long arc quads, Hip flexion Seated Reps: 15 Assessment Current Status: Good Progress PT Retirement Goals Agricultural Adviser Goals PT Retirement Goals Time Frame: Jul 13, 2020 Roll Left & Right (QC): 6 Sit to Lying (QC): 6 Lying-Sitting on Side/Bed(QC): 6 Sit to Stand (QC): 6 Chair/Xex-zh-Lkqfu Xfer(QC): 6 Toilet Transfer (QC): 6 Car Transfer (QC): 6 Does the Patient Walk: Yes Walk 10 feet (QC): 6 Walk 50ft with 2 Turns (QC): 6 Walk 150 ft (QC): 6 Walking 10ft on Uneven Surface: 6 PT Plan Treatment/Plan Treatment Plan: Continue Plan of Care Treatment Plan: Bed Mobility, Education, Functional Activity Brandie, Functional Strength, Gait, Safety, Therapeutic Exercise, Transfers Treatment Duration: Jul 13, 2020 Frequency: 6 times per week Estimated Hrs Per Day: .25 hour per day Safety Risks/Education Patient Education: Gait Training, Transfer Techniques Teaching Recipient: Patient Teaching Methods: Demonstration, Discussion Response to Teaching: Verbalize Understanding, Return Demonstration, Reinforcement Needed Time/GCodes Time In: 930 Time Out: 950 Total Billed Treatment Time: 20 Total Billed Treatment 1,GT20m CHRISTIAN LLAMAS PTA Jul 04, 2020 12:13
[2020-07-04] MEDS ORDERED: LIDOCAINE/EPI 1%-1:100,000 (XYLOCAINE) 10 ML ONE (12:44)
[2020-07-04] MEDS: LACTATED RINGERS 1,000 ML IV PRN (13:10)
[2020-07-04] MEDS ORDERED: CLINDAMYCIN 900 MG/50 ML IVPB 50 ML IV ONE (13:20)
[2020-07-04] MEDS ORDERED: CLINDAMYCIN 900 MG/50 ML IVPB 50 ML IV NR (13:30)
[2020-07-04] MEDS ORDERED: PHENYLEPHRINE 100 MCG/ML 10 ML (ANESTHESIA) SYR ONE (13:38)
[2020-07-04] MEDS ORDERED: fentaNYL INJ 100 MCG/2 ML AMP IVP ONE ×2 (14:00→15:45)
[2020-07-04] MEDS ORDERED: SUGAMMADEX 500 MG/5 ML VIAL (BRIDION) IV ONE (14:44)
--- NOTE | 2020-07-04 14:47 | Progress Note-Post Operative ---
Post-Operative Progess Note Surgeon (s)/Supervisor Drilling And Shooting (s) Surgeon PONCHO BROWN MD Supervisor Drilling And Shooting: tien segovia PRODUCTION COORDINATOR Pre-Operative Diagnosis symptomatic biliary dyskinesia, diarrhea, dark stools. Post-Operative Diagnosis biliary dyskinesia, reflux esophagitis(stage 2), mild gastritis, chronic stage 2 ext and int hemorrhoids, moderate sigmoid diverticulosis. Procedure & Operative Findings Date of Procedure 07/04/20 Procedure Performed/Findings laparoscopic cholecystectomy. EGD with bx. Colonoscopy. Anesthesia Type get Estimated Blood Loss Estimated blood loss (mL): minimal Specimens/Packing Specimens Removed gallbladder, ge jxn, antrum PONCHO BROWN MD Jul 04, 2020 14:47
[2020-07-04] MEDS: ONDANSETRON 4 MG/2 ML (SDV) Z0FRAN IVP PRN ×3 (15:08→18:37)
--- NOTE | 2020-07-04 15:36 | Anesthesia-General Post-Op ---
General Patient Condition Mental Status/LOC: Same as Preop Cardiovascular: Satisfactory Nausea/Vomiting: Absent Respiratory: Satisfactory Pain: Controlled Complications: Absent Post Op Complications Complications None Follow Up Care/Instructions Patient Instructions None needed. Anesthesia/Patient Condition Patient Condition Patient is doing well, no complaints, stable vital signs, no apparent adverse anesthesia problems. No complications reported per nursing. JOSE FUNG CRNA Jul 04, 2020 15:35
[2020-07-04] MEDS ORDERED: ONDANSETRON 4 MG/2 ML (SDV) Z0FRAN IVP PRN (15:45)
--- NOTE | 2020-07-04 15:51 | Progress Note - Cardiology ---
Cardiology SOAP Progress Note Subjective: Gen malaise and weakness No cp or palp or syncope Shortness of breath with activity Has had intermittent nausea and vomiting Objective: I&O/Vital Signs 07/04/20 07/04/20 07/04/20 07/04/20 04:00 06:02 06:06 06:37 Temp 36.3 Pulse 94 77 Resp 18 B/P (MAP) 139/61 (87) Pulse Ox 98 100 96 O2 Delivery Nasal Cannula Nasal Cannula Nasal Cannula O2 Flow Rate 1.00 1.50 1.00 07/04/20 07/04/20 07/04/20 07/04/20 08:00 08:00 10:32 10:45 Temp 36.1 36.1 Pulse 81 64 Resp 18 B/P (MAP) 129/80 (96) Pulse Ox 97 96 96 O2 Delivery Nasal Cannula Room Air Nasal Cannula O2 Flow Rate 1.00 1.00 FiO2 24 07/04/20 07/04/20 12:32 12:38 Temp 36.2 Pulse 99 72 Resp 18 B/P (MAP) 139/84 (102) Pulse Ox 92 O2 Delivery Room Air 07/04/20 00:00 Intake Total 1240 ml Output Total 300 ml Balance 940 ml Weight (Pounds): 219 Weight (Ounces): 1.0 Weight (Calculated Kilograms): 99.246161 Constitutional: AAO x 3, well-developed, well-nourished Respiratory: No accessory muscle use, No respiratory distress; chest expansion is symmetric, chest is bilaterally symmetric, lungs clear to auscultation Cardiovascular: irregularly irregular; No JVD; S1 and S2 Gastrointestional: No tender; soft, round, audible bowel sounds Extremities: no lower extremity edema bilateral Neurologic/Psychiatric: grossly intact (moves all extremities) Skin: No rash on exposed areas, No ulcerations on exposed areas Results/Procedures: Labs Laboratory Tests 07/03/20 20:09: Glucometer 147H 07/04/20 05:02: White Blood Count 6.9, Red Blood Count 3.66L, Hemoglobin 10.5L, Hematocrit 35, Mean Corpuscular Volume 95, Mean Corpuscular Hemoglobin 29, Mean Corpuscular Hemoglobin Concent 30L, Red Cell Distribution Width 15.7H, Platelet Count 199, Mean Platelet Volume 11.5, Immature Granulocyte % (Auto) 2, Neutrophils (%) (Auto) 61, Lymphocytes (%) (Auto) 21, Monocytes (%) (Auto) 9, Eosinophils (%) (Auto) 6, Basophils (%) (Auto) 1, Neutrophils # (Auto) 4.2, Lymphocytes # (Auto) 1.4, Monocytes # (Auto) 0.6, Eosinophils # (Auto) 0.4H, Basophils # (Auto) 0.1, Immature Granulocyte # (Auto) 0.1, Sodium Level 138, Potassium Level 4.5, Chloride Level 101, Carbon Dioxide Level 26, Anion Gap 11, Blood Urea Nitrogen 7, Creatinine 0.85, Estimat Glomerular Filtration Rate > 60, BUN/Creatinine Ratio 8, Glucose Level 92, Calcium Level 8.3L, Corrected Calcium 8.9, Magnesium Level 2.4, Total Bilirubin 0.3, Aspartate Amino Transf (AST/SGOT) 22, Alanine Aminotransferase (ALT/SGPT) 14, Alkaline Phosphatase 97, Total Protein 6.3L, Albumin 3.3 07/04/20 10:59: Glucometer 89 07/04/20 13:01: Glucometer 118H 07/04/20 15:04: Glucometer 150H Microbiology 06/27/20 Urine Culture - Final, Complete NO GROWTH Laboratory Tests 07/03/20 05:27 07/04/20 05:02 A/P: Assessment: Chronic a-fib with controlled rate - OAC, but Eliquis is currently being held d/t concerns of GIB CAD - h/o coronary stent placed 4-5 yrs ago at [facility] Echocardiogram of 06-29-20 showed LVEF 60-65%. LA mildly dilated. H/o gastrointestinal bleed - Dr Young and Dr Cooper managing UTI - management per Medical services COPD H/O TIA's HTN HLD Fibromyalgia Carotid arterial dz - details unknown Right hip fracture following a non-syncopal fall in May 2020 - awaiting eval with orthopedic services in [place] N/V of undetermined etiology Plan: Complex management GIB for which endoscopy has been advised - management per GI services We advise source of bleeding be evaluated and treated so that OAC may be resumed d/t risk of CVA from chronic a-fib Advise resumption of ASA d/t reported h/o CAD and carotid arterial dz Awaiting records from [facility] Cardiology services Monitor lab Replace electrolytes as indicated Cholecystectomy/EGD/colo today per MICHELLE Guo MD FACP FACC CCDS Jul 04, 2020 15:51
[2020-07-04] MEDS ORDERED: RT-ALBUTEROL SULF 2.5 MG/3 ML PRE-MIX VIAL IH PRN (16:00)
[2020-07-04] MEDS: fentaNYL INJ 100 MCG/2 ML AMP IV PRN ×2 (17:03→21:40)
--- NOTE | 2020-07-04 19:47 | OPERATIVE REPORT ---
DATE OF SERVICE: 07/04/2020 ADMITTING CLINICIAN: Madeline Mercado APRN PREOPERATIVE DIAGNOSES: Symptomatic biliary dyskinesia, nausea and vomiting, rectal bleeding. POSTOPERATIVE DIAGNOSES: Symptomatic biliary dyskinesia, hepatomegaly, reflux esophagitis stage II, mild gastritis, chronic stage II external and internal hemorrhoids, moderate sigmoid diverticulosis, no active bleeding. PROCEDURE: Laparoscopic cholecystectomy, EGD with biopsy, colonoscopy. SURGEON: Poncho Brown MD. ANESTHESIA: General endotracheal. ESTIMATED BLOOD LOSS: Minimal. FINDINGS: Symptomatic biliary dyskinesia, hepatomegaly, reflux esophagitis stage II, mild gastritis, chronic stage II external and internal hemorrhoids, moderate sigmoid diverticulosis, no active bleeding. DISPOSITION: The patient tolerated the procedure well. INDICATIONS: The patient is an 85-year-old female who initially presented to the Emergency Department with weakness as well as intermittent episodes of nausea and vomiting for the past 4 weeks. She fell and sustained a nondisplaced hip fracture and has been rehabilitating for this. She was scheduled for a colonoscopy due to intermittent episodes of rectal bleeding. However, due to this fall, this was delayed. Upon admission, she has she states the nausea and vomiting; however, has also had some self-limited red blood per rectum. She was also on anticoagulation with apixaban and aspirin. An ultrasound was performed, which did show gallbladder wall thickening and no stones identified. She then underwent a HIDA scan, which showed a normal ejection fraction; however, she states that after the test she did have nausea and vomiting. This was consistent with a biliary dyskinesia. DESCRIPTION OF PROCEDURE: The patient was brought to the operating room, laid supine on the table. After adequate IV pain and sedative medications and general endotracheal intubation, the abdomen was prepped and draped in standard surgical fashion. A 0.5% Marcaine with epinephrine was used to anesthetize the overlying skin in the left upper abdominal quadrant and a transverse skin incision made using a 15 blade. An 0 silk suture was applied to the medial aspect for the incision for retraction and a Veress needle inserted with a low opening pressure of 0 mmHg and the abdomen was then insufflated to 15 mmHg pressure. The Veress needle removed and a 5 mm XL trocar placed followed by a 5 mm 45-degree angle laparoscope visualizing the peritoneal cavity. A 4-quadrant abdominal exploration was performed. There were some omental adhesions towards the anterior abdominal wall. There was a significant hepatomegaly. There was a distended gallbladder. Under direct visualization, we then proceeded to place a supraumbilical 10 mm port after the skin and peritoneal lining were anesthetized using 0.5% Marcaine with epinephrine and a transverse skin incision made using a 15 blade. In a similar manner, a right upper abdominal quadrant 5 mm port was placed. The patient was then placed in steep reverse Trendelenburg position and plane right side up, left side down. There were omental adhesions towards the gallbladder, which was taken down using blunt dissection as well as electrocautery on the hook instrument. The gallbladder was then retracted anteriorly and superiorly, and hepatoduodenal ligament was then dissected again using blunt dissection as well as electrocautery on the hook instrument. The entire critical view of safety was identified including the triangle of Calot as well as the cystic duct and artery as the only two structures going into the gallbladder as well as the cystic plate behind the proximal gallbladder. A timeout was then taken, and the cystic duct and artery were then clipped proximally and distally and cut with EndoShears. The gallbladder was then dissected off the liver bed using electrocautery on the hook instrument with visualization of good hemostasis as well as no leaking ducts of Luschka. The gallbladder was removed through the 10 mm port site using an EndoCatch bag. The 10 mm port site fascia and peritoneum were then closed under direct visualization using a Isaías-Khang device and 0 Vicryl suture. The abdomen was desufflated and remaining ports removed. All skin incisions were closed using 4-0 Monocryl running subcuticular sutures. Wounds were then cleaned and covered with Dermabond. We then proceeded with the EGD and the endoscope was placed in the mouth, visualizing the pharynx and hypopharyngeal region. Vocal cords, epiglottis and vallecula identified and appeared to be normal. The endoscope was then intubated, the esophageal opening and esophagus insufflated. The endoscope was then advanced to the first, second and third portion of esophagus at the level of the GE junction, a reflux esophagitis stage II identified. There were no ulcers or strictures identified in this region. A biopsy was taken with forceps with visualization of good hemostasis. The endoscope was then advanced into the stomach and endoscope retroflexed, visualizing no hiatal hernia. There was a mild gastritis. No formal ulcerations, polyps, or any neoplasms. A biopsy was taken of the antrum to rule out H. pylori with visualization of good hemostasis. The endoscope was then advanced through the pylorus into the first and second portion of the duodenum, which appeared normal with no distal obstructions. The endoscope was then slowly withdrawn while taking a second look and suctioning of residual air with no additional findings. The patient was then placed in frog leg position and a digital rectal examination was performed, which revealed mild chronic stage II external and internal hemorrhoids, not actively edematous nor inflamed and no bleeding. Normal sphincter tone was felt and there were no palpable masses. The endoscope was then intubated into the anus and rectum gently insufflated. The endoscope was then advanced to the valves of Harman of the rectum with no polyps or any neoplasms identified. Through the sigmoid colon, a moderate sigmoid diverticulosis identified. There were no mucosal inflammatory changes to indicate any active diverticulitis. There was also no bleeding. The endoscope was then advanced through the remainder of the descending, transverse and ascending colon to the cecum. These segments were normal. There were no polyps or any neoplasms identified. The endoscope was then slowly withdrawn while taking a second look and suctioning of residual air with no additional findings. The patient tolerated the procedure well. We will start IV normal pain medication as well as a clear liquid diet. When she is tolerating clears, has good pain control with oral pain medications, ambulating well, we will discharge her home. We will also recommend a high fiber diet with a fiber supplement encompassing at least 25 grams daily as well as significant amounts of water to promote soft stools on a daily basis. Job ID: [id number] DocumentID: [id number] Dictated Date: 07/04/2020 14:56:43 Roll Up Helper Date: 07/04/2020 19:45:55 Dictated By: PONCHO BROWN MD
[2020-07-04] MEDS: meTOproloL SUCCINATE 50 MG (TOPROL XL) TAB PO SCH (21:38)
[2020-07-04] MEDS: ENOXAPARIN 40 MG/0.4 ML (LOVENOX) SYR SC SCH (21:39)
[2020-07-04] MEDS: MONTELUKAST 10 MG (SINGULAIR) TAB PO SCH (21:39)
[2020-07-04] MEDS: AMITRIPTYLINE 25 MG (ELAVIL) TAB PO SCH (21:39)
[2020-07-04] MEDS: polyethylene glycoL POWDER 17 GM (MIRALAX) PACK PO SCH (21:39)
[2020-07-05] VITALS (7 sets, daily range): BP systolic 136–188; BP diastolic 68–94
[2020-07-05] MEDS: RT-ALBUTEROL SULF 2.5 MG/3 ML PRE-MIX VIAL INH SCH ×6 (01:11→21:40)
[2020-07-05 05:12] LABS: BASOPHILS # (AUTO) 0.1 10^3/uL (0.0-0.1); BASOPHILS % (AUTO) 1 % (0-10); EOSINOPHILS # (AUTO) 0.1 10^3/uL (0.0-0.3); EOSINOPHILS % (AUTO) 1 % (0-10); HEMATOCRIT 36 % (35-52); LYMPHOCYTES # (AUTO) 1.1 10^3/uL (1.0-4.0); LYMPHOCYTES % (AUTO) 11 % (12-44); MEAN CORPUSCULAR HEMOGLOBIN 29 pg (25-34); MEAN CORPUSCULAR HGB CONC 31 g/dL (32-36); MEAN CORPUSCULAR VOLUME 95 fL (80-99); MEAN PLATELET VOLUME 11.8 fL (9.0-12.2); MONOCYTES # (AUTO) 0.8 10^3/uL (0.0-1.0); MONOCYTES % (AUTO) 8 % (0-12); NEUTROPHILS % (AUTO) 79 % (42-75); PLATELET COUNT 197 10^3/uL (130-400); WHITE BLOOD COUNT 10.1 10^3/uL (4.3-11.0)
[2020-07-05 05:36] LABS: ALBUMIN 3.4 GM/DL (3.2-4.5); BILIRUBIN,TOTAL 0.5 MG/DL (0.1-1.0); CALCIUM 8.7 MG/DL (8.5-10.1); CREATININE SERUM 0.92 MG/DL (0.60-1.30); MAGNESIUM 1.8 MG/DL (1.6-2.4); POTASSIUM 4.9 MMOL/L (3.6-5.0); TOTAL PROTEIN 6.3 GM/DL (6.4-8.2)
[2020-07-05] MEDS: inSUlin ASPART (NovoLOG) 1 UNIT/0.01 ML (CHARGE PER UNIT) SC SCH ×4 (05:39→21:02)
[2020-07-05] MEDS: VALACYCLOVIR 500 MG TAB (VALTREX) PO SCH ×3 (05:50→21:19)
[2020-07-05] MEDS: GABAPENTIN 100 MG (NEURONTIN) CAP PO SCH ×2 (08:48→21:20)
[2020-07-05] MEDS: MULTIVIT W/MINERALS TAB (THERAGRAN M) PO SCH (08:48)
[2020-07-05] MEDS: SPIRONOLACTONE 25 MG (ALDACTONE) TAB PO SCH (08:48)
[2020-07-05] MEDS: MAGNESIUM OXIDE (MAG-OX)400 MG TAB PO SCH (08:48)
[2020-07-05] MEDS: lisINopril 20 MG (PRINIVIL) TABLET PO SCH ×2 (08:48→21:20)
[2020-07-05] MEDS: PANTOPRAZOLE 20 MG TABLET (PROTONIX) PO SCH (08:49)
[2020-07-05] MEDS: GLIMEPIRIDE 2 MG (AMARYL) TAB PO SCH (08:49)
[2020-07-05] MEDS: LORATADINE (CLARITIN) 10 MG TAB PO SCH (08:49)
[2020-07-05] MEDS: ENOXAPARIN 40 MG/0.4 ML (LOVENOX) SYR SC SCH ×2 (08:49→21:22)
[2020-07-05] MEDS: CALCIUM CARBONATE 500 MG (TUMS) TAB.CHEW PO SCH (08:49)
[2020-07-05] MEDS: DOCUSATE SODIUM 100 MG (COLACE) CAP PO SCH ×2 (08:49→21:20)
[2020-07-05] MEDS: ROSUVASTATIN 20 MG (CRESTOR) TABLET PO SCH (08:53)
--- NOTE | 2020-07-05 10:38 | Progress Note - Cardiology ---
Cardiology SOAP Progress Note Subjective: Sitting up in recliner C/O abd discomfort and distension No c/o CP or SOB Objective: I&O/Vital Signs 07/05/20 07/06/20 07/06/20 07/06/20 23:58 01:00 01:50 04:34 Temp 37.1 37.0 Pulse 110 103 89 Resp 18 18 B/P (MAP) 188/88 (121) 144/79 (100) Pulse Ox 97 92 97 O2 Delivery Nasal Cannula Nasal Cannula Nasal Cannula O2 Flow Rate 2.00 2.00 2.00 07/06/20 07/06/20 07/06/20 06:34 07:00 08:00 Temp 35.7 Pulse 93 85 Resp 18 B/P (MAP) 191/88 (122) Pulse Ox 97 99 O2 Delivery Nasal Cannula Nasal Cannula O2 Flow Rate 2.00 2.00 07/06/20 00:00 Intake Total 600 ml Output Total 1200 ml Balance -600 ml Weight (Pounds): 219 Weight (Ounces): 1.0 Weight (Calculated Kilograms): 99.858989 Constitutional: AAO x 3, well-developed, well-nourished Respiratory: No accessory muscle use, No respiratory distress; chest expansion is symmetric, chest is bilaterally symmetric, lungs clear to auscultation Cardiovascular: irregularly irregular; No JVD; S1 and S2 Gastrointestional: No tender; soft, round, distended, audible bowel sounds Extremities: no lower extremity edema bilateral Neurologic/Psychiatric: grossly intact (moves all extremities) Skin: No rash on exposed areas, No ulcerations on exposed areas Results/Procedures: Labs Laboratory Tests 07/05/20 11:21: Glucometer 146H 07/05/20 16:04: Glucometer 190H 07/05/20 20:38: Glucometer 165H 07/06/20 04:30: White Blood Count 10.6, Red Blood Count 3.82, Hemoglobin 10.9L, Hematocrit 36, Mean Corpuscular Volume 94, Mean Corpuscular Hemoglobin 29, Mean Corpuscular Hemoglobin Concent 30L, Red Cell Distribution Width 15.7H, Platelet Count 193, Mean Platelet Volume 12.2, Immature Granulocyte % (Auto) 1, Neutrophils (%) (Auto) 73, Lymphocytes (%) (Auto) 15, Monocytes (%) (Auto) 9, Eosinophils (%) (Auto) 1, Basophils (%) (Auto) 1, Neutrophils # (Auto) 7.8, Lymphocytes # (Auto) 1.6, Monocytes # (Auto) 1.0, Eosinophils # (Auto) 0.1, Basophils # (Auto) 0.1, Immature Granulocyte # (Auto) 0.1, Sodium Level 136, Potassium Level 4.3, Chloride Level 98, Carbon Dioxide Level 27, Anion Gap 11, Blood Urea Nitrogen 7, Creatinine 0.85, Estimat Glomerular Filtration Rate > 60, BUN/Creatinine Ratio 8, Glucose Level 120H, Calcium Level 8.5, Corrected Calcium 9.2, Total Bilirubin 0.6, Aspartate Amino Transf (AST/SGOT) 34, Alanine Aminotransferase (ALT/SGPT) 28, Alkaline Phosphatase 87, Total Protein 5.9L, Albumin 3.1L Microbiology 06/27/20 Urine Culture - Final, Complete NO GROWTH A/P: Assessment: Chronic a-fib with controlled rate - OAC, but Eliquis is currently being held d/t concerns of GIB CAD - h/o coronary stent placed 4-5 yrs ago at [facility] S/P upper and lower endoscopy on 07-04-[address] Cooper - no active bleeding; gastritis; ext and internal hemorrhoids S/P lap carmelo by Dr. Cooper on 07-04-20 Echocardiogram of 06-29-20 showed LVEF 60-65%. LA mildly dilated. H/o gastrointestinal bleed - Dr Young and Dr Cooper managing UTI - management per Medical services COPD H/O TIA's HTN HLD Fibromyalgia Carotid arterial dz - details unknown Right hip fracture following a non-syncopal fall in May 2020 - awaiting eval with orthopedic services in [place] N/V of undetermined etiology Plan: Complex management S/P endoscopy on 07-04-20, upper and lower, which showed no signs of active bleeding S/P cholecystectomy on 07-04-20 Advise resumption of OAC for stroke prophylaxis if ok with surgical services H/H has been stable Monitor lab Replace electrolytes as indicated MELISSA WESTON Jul 05, 2020 10:38
[2020-07-05] MEDS: RT--FLUTICASONE/SALMETEROL 113-14 (AIRDUO RespiCLICK) IH SCH ×2 (10:47→21:40)
--- NOTE | 2020-07-05 11:13 | Occ Therapy Progress Note ---
Therapy Progress Note Pt laying in bed, OT attempted tx this AM. Pt states she does not feel well and does not want any therapy today. OT educated pt on the purpose and benefit of OT, she verbalized understanding but still declined. OT will attempt again tomorrow, as pt does not want OT to check back later this afternoon, preferring this therapist to wait until tomorrow. 1, Refusal [id number] MEME MAYER OT Jul 05, 2020 11:13
--- NOTE | 2020-07-05 11:50 | Physical Therapy Progress Note ---
Therapy Progress Note Patient denied PT at this time. Offered to assist with transfer to chair, bathroom, and patient denied. Will re-visit in a.m. 1 visit: no charge Refused at 11:00 LUZ MARIA ONEIL PT Jul 05, 2020 11:50
--- NOTE | 2020-07-05 12:05 | Diagnostic Imaging Report ---
PROCEDURE: CT pelvis without contrast. TECHNIQUE: Multiple contiguous axial images were obtained through the pelvis without the use of intravenous contrast. Sagittal and coronal reformations were performed. Auto Exposure Controls were utilized during the CT exam to meet ALARA standards for radiation dose reduction. INDICATION: Right hip pain There are no prior CT pelvis examinations available for comparison. The plain film examination of the right hip performed on 06/19/2020 raised the question of a nondisplaced fracture involving the greater trochanter of the right femur. The subsequent pelvis and right hip exam of 07/03/2020 failed to show any sign of an acute abnormality. On this study, there is some cortical irregularity of the right. There is similar-appearing cortical irregularity of the greater trochanter on the left, as well. There is no clear fracture line identified and I suspect that the appearance of the greater trochanters is related to prior trauma and/or degenerative disease. There is no acute fracture identified. No other fracture or acute bony abnormality is noted either. There are numerous dilated gas and fluid-filled segments of small bowel and some gas and fluid in the ascending colon. Furthermore, there does appear to be a small portion of the small bowel extending through a defect in the anterior abdominal wall at the level of the pubic symphysis. This portion of the bowel may be incarcerated and the possibility that there is partial obstruction of the small bowel should be considered. However it is my understanding that the patient underwent a cholecystectomy yesterday and it is possible that the fluid and gas in the large and small bowel is related to a postoperative ileus. If further imaging is desired, a contrast small bowel exam would be recommended. There is no acute pelvic abnormality noted otherwise. The uterus is surgically absent. The appendix was visualized and is not abnormally thickened. IMPRESSION: 1. There is no evidence for an acute bony abnormality. In particular, there is no sign of a fracture of the greater trochanter on the right. 2. There is gas and fluid in both the large and small bowel. Considerations and recommendations as above. 3. These results were called to Dr. Sheree Young. Dictated by: Dictated on workstation # [id number]
[2020-07-05] MEDS: ONDANSETRON 4 MG/2 ML (SDV) Z0FRAN IVP PRN ×2 (12:47→16:31)
--- NOTE | 2020-07-05 13:31 | Progress Note - Hospitalist ---
REGINA DOLL MED STUDENT 07/05/20 1331: Subjective HPI/CC On Admission Date Seen by Provider: Jul 05, 2020 Time Seen by Provider: 08:15 Subjective/Events-last exam Pt is asleep, lying in recliner upon entry. Pt states that she is not having a good day and is pain. Pt had lap carmelo with EGD/ colonoscopy yesterday and experiencing discomfort from the increased gas in her GI tract. Pt refused PT/OT but after explaining that it would help relieve some of the gas, she was more inclined. Pt is pleased to hear that the confirmatory CT was negative for R hip fracture. No acute events over night. Review of Systems General: No Chills; Fatigue HEENT: No Head Aches, No Dysphasia Pulmonary: Dyspnea, Cough Cardiovascular: No: Chest Pain, Palpitations Gastrointestinal: Nausea, Abdominal Pain (Diffuse tenderness); No: Vomiting Genitourinary: No Dysuria, No Hematuria Musculoskeletal: back pain (chronic) Neurological: No: Weakness, Confusion Objective Exam Vital Signs Vital Signs Date Time Temp Pulse Resp B/P (MAP) Pulse Ox O2 Delivery O2 Flow Rate FiO2 07/05/20 12:22 96 07/05/20 12:00 36.5 18 174/87 (116) 99 Nasal Cannula 2.00 07/04/20 10:45 24 Capillary Refill : Less Than 3 Seconds General Appearance: No Apparent Distress, WD/WN HEENT: PERRL/EOMI, Moist Mucous Membranes Neck: Normal Inspection, Supple Respiratory: Chest Non Tender, Lungs Clear, No Accessory Muscle Use, No Respiratory Distress, Crackles Cardiovascular: No Edema, No Gallop, No Murmur, Irregularly Irregular Gastrointestinal: Normal Bowel Sounds, Soft, Tenderness (Diffuse) Rectal: Deferred Extremity: Non Tender, No Calf Tenderness, No Pedal Edema Neurologic/Psychiatric: Alert, Oriented x3, No Motor/Sensory Deficits, Normal Mood/Affect Skin: Warm/Dry, Pallor Results/Procedures Lab Laboratory Tests 07/05/20 05:06 Patient resulted labs reviewed. Assessment/Plan Assessment and Plan Assess & Plan/Chief Complaint ASSESSMENT: R Hip fracture - ruled out with confirmatory CT UTI Reported blood in stool RUQ pain- biliary dyskinesia HTN Poorly controlled diabetes COPD Hx AFib Anemia - 11 (improved) PLAN: Pain management Continue abx for UTI Monitor labs (Kido) HIDA scan showed normal ejection fraction (Kido) Laprascopic cholecystectomy with EGD/ colonoscopy yesterday - no evidence of GIB only reflux esophagitis, gastritis, ext./ int. hemorrhoids, and diverticulosis Appreciate Dr. Ace adair Appreciate Dr. Lizzie adair CT of pelvis w/o contrast, right hip focus - negative for R hip fracture SHEREE PAT DO 07/06/20 0536: Subjective Subjective/Events-last exam CT reveals no right hip fracture HH will be needed Restarting OAC if ok with surgery Choly yesterday Review of Systems General: Fatigue Gastrointestinal: Abdominal Pain (Diffuse tenderness) Objective Exam General Appearance: No Apparent Distress, WD/WN, Chronically ill Respiratory: Lungs Clear Cardiovascular: Irregularly Irregular Neurologic/Psychiatric: Alert, Oriented x3, No Motor/Sensory Deficits, Normal Mood/Affect, Disoriented Assessment/Plan Assessment and Plan Assess & Plan/Chief Complaint HH at [place] PT OT Monitor closely Supervisory-Addendum Brief Verification & Attestation Participated in pt care: history, MDM, physical Personally performed: exam, history, MDM, supervision of care Care discussed with: Medical Student Procedures: n/a Results interpretation: Verified all documentation Verification and Attestation of Medical Student E/M Service A medical student performed and documented this service in my presence. I reviewed and verified all information documented by the medical student and made modifications to such information, when appropriate. I personally performed the physical exam and medical decision making. Sheree Pat, Jul 06, 2020,05:33 REGINA DOLL MED STUDENT Jul 05, 2020 13:31 SHEREE PAT DO Jul 06, 2020 05:36
--- NOTE | 2020-07-05 15:58 | Progress Note ---
Progress Note Assessment/Plan Date Seen by Provider: Jul 05, 2020 Time Seen by Provider: 14:55 Assessment/Plan symptomatic biliary dyskinesia, diarrhea, dark stools. post cholecystectomy x 24 hours. Incision sites healing well without signs of seroma or celllulitis. Abdomen soft, mildly tender right lateral. Pt having nausea,vomiting with poor oral intake. Medications for nausea Encouraged ambuation. CT reports illeus related to recent surgery, no hip or pelvic fx noted. We will follow . Vitals Last set of Vitals Signs Vital Signs Date Time Temp Pulse Resp B/P (MAP) Pulse Ox O2 Delivery O2 Flow Rate FiO2 07/05/20 14:35 97 Nasal Cannula 2.00 07/05/20 12:22 96 07/05/20 12:00 36.5 18 174/87 (116) 07/04/20 10:45 24 I&O I&O Intake and Output 07/05/20 00:00 Intake Total 250 ml Output Total 850 ml Balance -600 ml Intake Oral 0 ml IV Total 250 ml Output Urine Total 850 ml # Voids 1 Labs Laboratory Tests 07/04/20 16:08: Glucometer 178H 07/04/20 20:02: Glucometer 205H 07/05/20 05:06: White Blood Count 10.1, Red Blood Count 3.80, Hemoglobin 11.0L, Hematocrit 36, Mean Corpuscular Volume 95, Mean Corpuscular Hemoglobin 29, Mean Corpuscular Hemoglobin Concent 31L, Red Cell Distribution Width 15.7H, Platelet Count 197, Mean Platelet Volume 11.8, Immature Granulocyte % (Auto) 1, Neutrophils (%) (Auto) 79H, Lymphocytes (%) (Auto) 11L, Monocytes (%) (Auto) 8, Eosinophils (%) (Auto) 1, Basophils (%) (Auto) 1, Neutrophils # (Auto) 8.0H, Lymphocytes # (Auto) 1.1, Monocytes # (Auto) 0.8, Eosinophils # (Auto) 0.1, Basophils # (Auto) 0.1, Immature Granulocyte # (Auto) 0.1, Sodium Level 137, Potassium Level 4.9, Chloride Level 100, Carbon Dioxide Level 27, Anion Gap 10, Blood Urea Nitrogen 8, Creatinine 0.92, Estimat Glomerular Filtration Rate 58, BUN/Creatinine Ratio 9, Glucose Level 108H, Calcium Level 8.7, Corrected Calcium 9.2, Magnesium Level 1.8, Total Bilirubin 0.5, Aspartate Amino Transf (AST/SGOT) 58H, Alanine Aminotransferase (ALT/SGPT) 33, Alkaline Phosphatase 110, Total Protein 6.3L, Albumin 3.4 07/05/20 11:21: Glucometer 146H Microbiology 06/27/20 Urine Culture - Final, Complete NO GROWTH ROBERTO JIMÉNEZ Jul 05, 2020 15:58
[2020-07-05] MEDS: METOCLOPRAMIDE INJ 10 MG/2 ML (REGLAN) IVP SCH ×2 (16:31→23:56)
--- NOTE | 2020-07-05 18:44 | Progress Note - Cardiology ---
Cardiology SOAP Progress Note Subjective: N/v have improved Gen malaise and weakness present No cp or palp or syncope Objective: I&O/Vital Signs 07/05/20 07/05/20 07/05/20 07/05/20 06:44 07:59 08:00 10:47 Temp 36.9 Pulse 88 93 Resp 20 B/P (MAP) 143/68 (93) Pulse Ox 97 98 O2 Delivery Nasal Cannula Nasal Cannula Nasal Cannula O2 Flow Rate 2.00 2.00 2.00 07/05/20 07/05/20 07/05/20 07/05/20 12:00 12:22 14:35 15:51 Temp 36.5 37.5 Pulse 78 96 123 Resp 18 18 B/P (MAP) 174/87 (116) 185/94 (124) Pulse Ox 99 97 96 O2 Delivery Nasal Cannula Nasal Cannula Nasal Cannula O2 Flow Rate 2.00 2.00 2.00 07/05/20 18:25 Pulse Ox 96 O2 Delivery Nasal Cannula O2 Flow Rate 2.00 07/05/20 00:00 Intake Total 250 ml Output Total 350 ml Balance -100 ml Weight (Pounds): 219 Weight (Ounces): 1.0 Weight (Calculated Kilograms): 99.314879 Constitutional: AAO x 3, well-developed, well-nourished Respiratory: No accessory muscle use, No respiratory distress; chest expansion is symmetric, chest is bilaterally symmetric, lungs clear to auscultation Cardiovascular: irregularly irregular; No JVD; S1 and S2 Gastrointestional: No tender; soft, round, distended, audible bowel sounds Extremities: no lower extremity edema bilateral Neurologic/Psychiatric: grossly intact (moves all extremities) Skin: No rash on exposed areas, No ulcerations on exposed areas Results/Procedures: Labs Laboratory Tests 07/04/20 20:02: Glucometer 205H 07/05/20 05:06: White Blood Count 10.1, Red Blood Count 3.80, Hemoglobin 11.0L, Hematocrit 36, Mean Corpuscular Volume 95, Mean Corpuscular Hemoglobin 29, Mean Corpuscular Hemoglobin Concent 31L, Red Cell Distribution Width 15.7H, Platelet Count 197, Mean Platelet Volume 11.8, Immature Granulocyte % (Auto) 1, Neutrophils (%) (Auto) 79H, Lymphocytes (%) (Auto) 11L, Monocytes (%) (Auto) 8, Eosinophils (%) (Auto) 1, Basophils (%) (Auto) 1, Neutrophils # (Auto) 8.0H, Lymphocytes # (Auto) 1.1, Monocytes # (Auto) 0.8, Eosinophils # (Auto) 0.1, Basophils # (Auto) 0.1, Immature Granulocyte # (Auto) 0.1, Sodium Level 137, Potassium Level 4.9, Chloride Level 100, Carbon Dioxide Level 27, Anion Gap 10, Blood Urea Nitrogen 8, Creatinine 0.92, Estimat Glomerular Filtration Rate 58, BUN/Creatinine Ratio 9, Glucose Level 108H, Calcium Level 8.7, Corrected Calcium 9.2, Magnesium Level 1.8, Total Bilirubin 0.5, Aspartate Amino Transf (AST/SGOT) 58H, Alanine Aminotransferase (ALT/SGPT) 33, Alkaline Phosphatase 110, Total Protein 6.3L, Albumin 3.4 07/05/20 11:21: Glucometer 146H Microbiology 06/27/20 Urine Culture - Final, Complete NO GROWTH Laboratory Tests 07/04/20 05:02 07/05/20 05:06 A/P: Assessment: Chronic a-fib with controlled rate - OAC, but Eliquis is currently being held d/t concerns of GIB CAD - h/o coronary stent placed 4-5 yrs ago at [facility] S/P upper and lower endoscopy on 07-04-[address] Cooper - no active bleeding; gastritis; ext and internal hemorrhoids S/P lap carmelo by Dr. Cooper on 07-04-20 Echocardiogram of 06-29-20 showed LVEF 60-65%. LA mildly dilated. H/o gastrointestinal bleed - Dr Young and Dr Cooper managing UTI - management per Medical services COPD H/O TIA's HTN HLD Fibromyalgia Carotid arterial dz - details unknown Right hip fracture following a non-syncopal fall in May 2020 - awaiting eval with orthopedic services in [place] N/V of undetermined etiology Plan: Complex management S/P endoscopy on 07-04-20, upper and lower, which showed no signs of active bleeding S/P cholecystectomy on 07-04-20 Advise resumption of OAC for stroke prophylaxis if ok with surgical services H/H has been stable Monitor lab Replace electrolytes as indicated MICHELLE BREWER MD FACP FACC CCDS Jul 05, 2020 18:44
[2020-07-05] MEDS ORDERED: PANTOPRAZOLE 40 MG (PROTONIX) VIAL IV SCH (21:00)
[2020-07-05] MEDS: polyethylene glycoL POWDER 17 GM (MIRALAX) PACK PO SCH (21:18)
[2020-07-05] MEDS: meTOproloL SUCCINATE 50 MG (TOPROL XL) TAB PO SCH (21:19)
[2020-07-05] MEDS: MONTELUKAST 10 MG (SINGULAIR) TAB PO SCH (21:20)
[2020-07-05] MEDS: AMITRIPTYLINE 25 MG (ELAVIL) TAB PO SCH (21:20)
[2020-07-06] MEDS: RT-ALBUTEROL SULF 2.5 MG/3 ML PRE-MIX VIAL INH SCH ×4 (01:50→14:37)
[2020-07-06 04:34] VITALS: BP 144/79
[2020-07-06 04:50] LABS: BASOPHILS # (AUTO) 0.1 10^3/uL (0.0-0.1); BASOPHILS % (AUTO) 1 % (0-10); EOSINOPHILS # (AUTO) 0.1 10^3/uL (0.0-0.3); EOSINOPHILS % (AUTO) 1 % (0-10); HEMATOCRIT 36 % (35-52); HEMOGLOBIN 10.9 g/dL (11.5-16.0); LYMPHOCYTES # (AUTO) 1.6 10^3/uL (1.0-4.0); LYMPHOCYTES % (AUTO) 15 % (12-44); MEAN CORPUSCULAR HEMOGLOBIN 29 pg (25-34); MEAN CORPUSCULAR HGB CONC 30 g/dL (32-36); MEAN CORPUSCULAR VOLUME 94 fL (80-99); MEAN PLATELET VOLUME 12.2 fL (9.0-12.2); MONOCYTES % (AUTO) 9 % (0-12); NEUTROPHILS # (AUTO) 7.8 10^3/uL (1.8-7.8); NEUTROPHILS % (AUTO) 73 % (42-75); PLATELET COUNT 193 10^3/uL (130-400); WHITE BLOOD COUNT 10.6 10^3/uL (4.3-11.0)
[2020-07-06 05:04] LABS: ALBUMIN 3.1 GM/DL (3.2-4.5); CHLORIDE 98 MMOL/L (98-107); POTASSIUM 4.3 MMOL/L (3.6-5.0); SODIUM 136 MMOL/L (135-145)
[2020-07-06 05:06] LABS: CALCIUM 8.5 MG/DL (8.5-10.1)
[2020-07-06 05:07] LABS: GLUCOSE 120 MG/DL (70-105); TOTAL PROTEIN 5.9 GM/DL (6.4-8.2)
[2020-07-06 05:08] LABS: CARBON DIOXIDE 27 MMOL/L (21-32)
[2020-07-06 05:09] LABS: BILIRUBIN,TOTAL 0.6 MG/DL (0.1-1.0)
[2020-07-06 05:10] LABS: ALKALINE PHOSPHATASE 87 U/L (40-136); CREATININE SERUM 0.85 MG/DL (0.60-1.30); GFR ESTIMATED > 60
[2020-07-06 05:11] LABS: BUN/CREATININE RATIO 8
[2020-07-06 05:13] LABS: ALANINE AMINOTRANSFERASE 28 U/L (0-55)
[2020-07-06] MEDS: inSUlin ASPART (NovoLOG) 1 UNIT/0.01 ML (CHARGE PER UNIT) SC SCH ×3 (05:33→16:15)
[2020-07-06] MEDS ORDERED: HYDR-87 PO (05:55)
[2020-07-06] MEDS ORDERED: PANT40TA52 PO (05:55)
--- NOTE | 2020-07-06 05:57 | D/C HH Face to Face Order ---
D/C Face to Face Orders Reconcile Patient Problems Problems Reviewed?: Yes Instructions for Patient Home Health Patient Instructions/FollowUp: PCP 1 week Physician to follow Patient: [facility] Discharge Diet for Home: No Restrictions Patient Problems: Debility s/p choly Patient Data-Allergies,Ht & Wt Patient Allergies: Coded Allergies: Penicillins (Verified Allergy, Unknown, 03/04/18) codeine (Verified Allergy, Unknown, 03/04/18) levofloxacin (Verified Allergy, Unknown, 03/04/18) meperidine (Verified Allergy, Unknown, 03/04/18) mirabegron (Verified Allergy, Unknown, 03/04/18) morphine (Verified Allergy, Unknown, 03/04/18) oxycodone (Verified Allergy, Unknown, 03/04/18) sitagliptin (Verified Allergy, Unknown, 03/04/18) Height (Feet): 5 Height (Inches): 63.00 Weight (Pounds): 219 Weight (Ounces): 1.0 Home Health Need/Face to Face Date of Face to Face: Jul 06, 2020 Clinical Findings: Generalized weakness and fatigue, Muscle weakness I have seen Pt [id number]: Yes Discharged To: Home Diagnosis/Conditions: Debility s/p choly Patient is Homebound due to: CognItive deficits, Patsy fall risk due to instabilty, Muscle weakness Homebound Status Due to the above stated illness, injury or surgical procedure (medical condition or diagnosis) and associated clinical findings, the patient is homebound because of his/her inability to leave home except with aid of a supportive device and/or person AND leaving the home requires a considerable and taxing effort or is medically contraindicated. Pt req the following assistanc: [facility] Nursing Orders Home Health Services Order: Nursing Services, Ship'S Surveyor-Evaluate & Treat, Physical Therapy-Evaluate & Treat Home Health Infusion Therapy Line Start Date: Jul 03, 2020 Certify Stmt I certify that this patient is under my care and that I, a nurse practitioner or a physician; a printing assistant working with me, had a face to face encounter that - meets the physician face to face encounter requirements with this patient as dated. MARK PAT DO Jul 06, 2020 05:57
--- NOTE | 2020-07-06 05:58 | Discharge Summary ---
Discharge Summary Hospital Course Was the Problem List Reviewed?: Yes Problems/Dx: (1) Nausea and vomiting Status: Acute Qualifiers: Qualified Codes: R11.2 - Nausea with vomiting, unspecified (2) Dyspnea Qualifiers: Qualified Codes: R06.02 - Shortness of breath (3) UTI (urinary tract infection) Status: Acute Qualifiers: Qualified Codes: N30.00 - Acute cystitis without hematuria (4) Acute kidney injury Status: Acute (5) Melena Status: Chronic (6) Atrial fibrillation Status: Chronic Qualifiers: Qualified Codes: I48.21 - Permanent atrial fibrillation (7) CAD (coronary artery disease) Status: Chronic Qualifiers: Qualified Codes: I25.10 - Atherosclerotic heart disease of robinson coronary artery without angina pectoris (8) Essential (primary) hypertension Status: Chronic (9) Non-insulin dependent type 2 diabetes mellitus Status: Chronic (10) History of fall Status: Acute (11) DVT prophylaxis Hospital Course Date of Admission: Jun 27, 2020 at 17:38 Admission Diagnosis : Family Physician/Provider: Madeline Mercado Aprn Date of Discharge: 07/06/20 Discharge Diagnosis: biliary colic s/p choly, fall with questionable right hip fracture but CT r/o fracture, gastritis on EGD and negative C-scope Hospital Course: Long course after admitted for rectal bleeding and RUQ abd pain with fall recently and questionable right hip fracture. EGD and C-scope performed along with choly with good results. OAC held during stay and only given Lovenox but restarted OAC at [facility]. Labs remained stable. Cardiology managed AF. CT did not reveal right hip fracture. Pt DC on HH. Labs and Pending Lab Test: Laboratory Tests 07/05/20 11:21: Glucometer 146H 07/05/20 16:04: Glucometer 190H 07/05/20 20:38: Glucometer 165H 07/06/20 04:30: White Blood Count 10.6, Red Blood Count 3.82, Hemoglobin 10.9L, Hematocrit 36, Mean Corpuscular Volume 94, Mean Corpuscular Hemoglobin 29, Mean Corpuscular Hemoglobin Concent 30L, Red Cell Distribution Width 15.7H, Platelet Count 193, Mean Platelet Volume 12.2, Immature Granulocyte % (Auto) 1, Neutrophils (%) (Auto) 73, Lymphocytes (%) (Auto) 15, Monocytes (%) (Auto) 9, Eosinophils (%) (Auto) 1, Basophils (%) (Auto) 1, Neutrophils # (Auto) 7.8, Lymphocytes # (Auto) 1.6, Monocytes # (Auto) 1.0, Eosinophils # (Auto) 0.1, Basophils # (Auto) 0.1, Immature Granulocyte # (Auto) 0.1, Sodium Level 136, Potassium Level 4.3, Chloride Level 98, Carbon Dioxide Level 27, Anion Gap 11, Blood Urea Nitrogen 7, Creatinine 0.85, Estimat Glomerular Filtration Rate > 60, BUN/Creatinine Ratio 8, Glucose Level 120H, Calcium Level 8.5, Corrected Calcium 9.2, Total Bilirubin 0.6, Aspartate Amino Transf (AST/SGOT) 34, Alanine Aminotransferase (ALT/SGPT) 28, Alkaline Phosphatase 87, Total Protein 5.9L, Albumin 3.1L Microbiology 06/27/20 Urine Culture - Final, Complete NO GROWTH Home Meds Active Pantoprazole Sodium 40 Mg Tablet.dr 40 Mg PO DAILY Hydrocodone-Ibuprofen 7.5-200 (Hydrocodone/Ibuprofen) 1 Each Tablet 1 Each PO Q4HR PRN Reported Calcium Carbonate 260 Mg Tablet 260 Mg PO DAILY Magnesium (Magnesium Oxide) 400 Mg Tablet 400 Mg PO DAILY Ozempic (Semaglutide) 0.25 Mg/0.2 Ml Pen.injctr 0.5 Mg SQ SUN Tresiba Flextouch U-100 (Insulin Degludec) 100 Unit/1 Ml Insuln.pen 20 Units SC HS Omeprazole 20 Mg Capsule.dr 20 Mg PO DAILY Gabapentin 100 Mg Capsule 100 Mg PO BID Nitroglycerin 0.4 Mg Tab.subl 0.4 Mg SL UD PRN Montelukast Sodium 10 Mg Tablet 10 Mg PO HS Spironolactone 25 Mg Tablet 25 Mg PO DAILY Breo Ellipta 100-25 Mcg INH (Fluticasone/Vilanterol) 1 Each Blst.w.dev 1 Puff INH DAILY Acetaminophen 325 Mg Tablet 325 Mg PO Q4H PRN Multi-Vitamin Daily (Multivitamin) 1 Each Tablet 1 Each PO DAILY Tessalon Perle (Benzonatate) 100 Mg Capsule 100 Mg PO TID PRN Proair Hfa (Albuterol Sulfate) 1 Puff Puff 2 Puff IH Q4H PRN Aspirin EC (Aspirin) 81 Mg Tablet.dr 81 Mg PO DAILY Rosuvastatin Calcium 20 Mg Tablet 20 Mg PO DAILY Metoprolol Succinate 50 Mg Tab.er.24h 50 Mg PO HS Loratadine 10 Mg Tablet 10 Mg PO DAILY Lisinopril 20 Mg Tablet 20 Mg PO BID Glimepiride 2 Mg Tablet 2 Mg PO DAILY Eliquis (Apixaban) 5 Mg Tablet 5 Mg PO BID Amitriptyline HCl 25 Mg Tablet 25 Mg PO HS Alendronate Sodium 70 Mg Tablet 70 Mg PO SUN Assessment/Pt Instructions [facility] 1 week Discharge Planning: >30 minutes discharge planning Discharge Physical Examination Vital Signs Vital Signs Date Time Temp Pulse Resp B/P (MAP) Pulse Ox O2 Delivery O2 Flow Rate FiO2 07/06/20 04:34 37.0 89 18 144/79 (100) 97 Nasal Cannula 2.00 07/04/20 10:45 24 General Appearance: No Apparent Distress, WD/WN, Chronically ill Cardiovascular: Irregularly Irregular Gastrointestinal: Normal Bowel Sounds Allergies: Coded Allergies: Penicillins (Verified Allergy, Unknown, 03/04/18) codeine (Verified Allergy, Unknown, 03/04/18) levofloxacin (Verified Allergy, Unknown, 03/04/18) meperidine (Verified Allergy, Unknown, 03/04/18) mirabegron (Verified Allergy, Unknown, 03/04/18) morphine (Verified Allergy, Unknown, 03/04/18) oxycodone (Verified Allergy, Unknown, 03/04/18) sitagliptin (Verified Allergy, Unknown, 03/04/18) Discharge Summary Date of Admission Jun 27, 2020 at 17:38 Date of Discharge Discharge Date: Jul 06, 2020 Discharge Diagnosis HH at [place] PT OT Monitor closely (1) Nausea and vomiting Status: Acute Assessment & Plan: - CLD, IVFs, will advance diet as tolerated 06/29: Denies any N/V since admission, US ordered, advance diet as tolerated Qualifiers: Qualified Codes: R11.2 - Nausea with vomiting, unspecified (2) Dyspnea Assessment & Plan: 06/29: Stop IVFs, Checking BNP and Echo Qualifiers: Qualified Codes: R06.02 - Shortness of breath (3) UTI (urinary tract infection) Status: Acute Assessment & Plan: - Rocephin Qualifiers: Qualified Codes: N30.00 - Acute cystitis without hematuria (4) Acute kidney injury Status: Acute Assessment & Plan: - No sure of baseline, trending down, will continue to monitor with IV/Oral hydration 06/29: Cr improved with hydration (5) Melena Status: Chronic Assessment & Plan: - Has outpatient scope planned (6) Atrial fibrillation Status: Chronic Assessment & Plan: - Has been off OAC due to colonoscopy, will start lovenox, rate controlled Qualifiers: Qualified Codes: I48.21 - Permanent atrial fibrillation (7) CAD (coronary artery disease) Status: Chronic Qualifiers: Qualified Codes: I25.10 - Atherosclerotic heart disease of robinson coronary artery without angina pectoris (8) Essential (primary) hypertension Status: Chronic (9) Non-insulin dependent type 2 diabetes mellitus Status: Chronic Assessment & Plan: - holding meds due to N/V and decreased appetite (10) History of fall Status: Acute (11) Hip fracture Status: Acute Qualifiers: Qualified Codes: S72.009D - Fracture of unspecified part of neck of unspecified femur, subsequent encounter for closed fracture with routine healing (12) DVT prophylaxis Assessment & Plan: - Lovenox MARK PAT DO Jul 06, 2020 05:58
[2020-07-06] MEDS: VALACYCLOVIR 500 MG TAB (VALTREX) PO SCH ×2 (06:01→13:54)
[2020-07-06] MEDS: METOCLOPRAMIDE INJ 10 MG/2 ML (REGLAN) IVP SCH ×2 (06:02→12:11)
[2020-07-06] MEDS: LACTATED RINGERS 1,000 ML IV PRN (06:02)
[2020-07-06] MEDS: CALCIUM CARBONATE 500 MG (TUMS) TAB.CHEW PO SCH (07:44)
[2020-07-06] MEDS: DOCUSATE SODIUM 100 MG (COLACE) CAP PO SCH (07:45)
[2020-07-06] MEDS: GLIMEPIRIDE 2 MG (AMARYL) TAB PO SCH (07:45)
[2020-07-06] MEDS: SPIRONOLACTONE 25 MG (ALDACTONE) TAB PO SCH (07:45)
[2020-07-06] MEDS: MAGNESIUM OXIDE (MAG-OX)400 MG TAB PO SCH (07:45)
[2020-07-06] MEDS: LORATADINE (CLARITIN) 10 MG TAB PO SCH (07:46)
[2020-07-06] MEDS: MULTIVIT W/MINERALS TAB (THERAGRAN M) PO SCH (07:46)
[2020-07-06] MEDS: lisINopril 20 MG (PRINIVIL) TABLET PO SCH (07:46)
[2020-07-06] MEDS: GABAPENTIN 100 MG (NEURONTIN) CAP PO SCH (07:46)
[2020-07-06] MEDS: ROSUVASTATIN 20 MG (CRESTOR) TABLET PO SCH (07:49)
[2020-07-06] MEDS: HYDROcodone /IBUPROFEN (VICOPROFEN) 7.5 MG/ 200 MG TAB PO PRN (07:54)
[2020-07-06 08:00] VITALS: BP 191/88
[2020-07-06] MEDS ORDERED: PANTOPRAZOLE 40 MG (PROTONIX) TAB PO SCH (09:00)
[2020-07-06] MEDS ORDERED: APIXABAN 5 MG (ELIQUIS) TABLET PO SCH (09:00)
--- NOTE | 2020-07-06 09:59 | Occupational Ther Daily Note ---
OT Current Status-Daily Note Subjective Pt seated in recliner, agreeable to OT Tx. Pt states she is planning on discharging from facility today ADL-Treatment Therapy Code Descriptions/Definitions Functional Skippers Measure: 0=Not Assessed/NA 4=Minimal Assistance 1=Total Assistance 5=Supervision or Setup 2=Maximal Assistance 6=Modified Skippers 3=Moderate Assistance 7=Complete IndependenceSCALE: Activities may be completed with or without assistive devices. 4-Zqtyxzukxo-ikqbube completes the activity by him/herself with no assistance from a helper. 5-Set-up or Clean-up Assistance-helper sets up or cleans up; patient completes activity. [place] assists only prior to or following the activity. 4-Supervision or Touching Assistance-helper provides verbal cues and/or touching/steadying and/or contact guard assistance as patient completes activity. Assistance may be provided throughout the activity or intermittently. 3-Partial/Moderate Assistance-helper does LESS THAN HALF the effort. [place] lifts, holds or supports trunk or limbs, but provides less than half the effort. 2-Substantial/Maximal Assistance-helper does MORE THAN HALF the effort. [place] lifts or holds trunk or limbs and provides more than half the effort. 2-Mvhelaipq-xqrdob does ALL the effort. Patient does none of the effort to complete the activity. Or, the assistance of 2 or more helpers is required for the patient to complete the activity. If activity was not attempted, code reason: 7-Patient Refused. 9-Not Applicable-not attempted and the patient did not perform the activity before the current illness, exacerbation or injury. 10-Not Attempted due to Environmental Limitations-(lack of equipment, weather restraints, etc.). 88-Not Attempted due to Medical Conditions or Safety Concerns. Oral Hygiene (QC): 7 Shower/Bathe Self (QC): 7 Other Treatment Pt seated in recliner, declined ADL tx on this date. Pt agreeable to completing BUE exercises in order to increase BUE strength and functional endurance, pt completed x20 reps BUE AROM for finger flexion and elbow flexion/extension, and then x15 reps shoulder flexion. Pt took rest breaks as needed between exercises, able to recall 3/3 without cues. Pt then brushed her hair with set up assist. Post tx, pt seated in recliner, call light in reach and all needs met. Education OT Patient Education: Correct positioning, Exercise program, Modified ADL techniques, Progress toward Goal/Update tx plan, Purpose of tx/functional activities Teaching Recipient: Patient Teaching Methods: Discussion Response to Teaching: Verbalize Understanding OT Financial Report Service Sales Agent Goals Financial Report Service Sales Agent Goals Time Frame: Jul 09, 2020 Eating (QC): 6 Oral Hygiene (QC): 6 Toileting Hygiene (QC): 6 Shower/Bathe Self (QC): 6 Upper Body Dressing (QC): 6 Lower Body Dressing (QC): 3 On/Off Footwear (QC): 88 1=Demonstrate adherence to instructed precautions during ADL tasks. 2=Patient will verbalize/demonstrate understanding of assistive devices/modifications for ADL. 3=Patient will improve strength/tolerance for activity to enable patient to per form ADL's. OT Education/Plan Problem List/Assessment Assessment: Decreased Activ Tolerance, Decreased UE Strength, Impaired I ADL's, Impaired Self-Care Skills Discharge Recommendations Plan/Recommendations: Continue POC Treatment Plan/Plan of Care Patient would benefit from OT for education, treatment and training to promote independence in ADL's, mobility, safety and/or upper extremity function for ADL's. Plan of Care: ADL Retraining, Caregiver Training, Functional Mobility, UE Funct Exercise/Act, UE Neuromus Re-Ed/Coord Treatment Duration: Jul 09, 2020 Frequency: 5 times per week Estimated Hrs Per Day: .25 hour per day Agreement: Yes Rehab Potential: Fair Time/GCodes Start Time: 09:35 Stop Time: 09:45 Total Time Billed (hr/min): 10 Billed Treatment Time 1, EX MEME MAYER OT Jul 06, 2020 09:59
[2020-07-06] MEDS: RT--FLUTICASONE/SALMETEROL 113-14 (AIRDUO RespiCLICK) IH SCH (10:14)
[2020-07-06 12:00] VITALS: BP 140/60
--- NOTE | 2020-07-06 13:23 | Progress Note ---
Subjective Date Seen by a Provider: Jul 06, 2020 Time Seen by a Provider: 12:00 Subjective/Events-last exam doing much better today. tolerating dys3 diet. no nausea/vomiting. ambulating better. Objective Exam Vital Signs Date Time Temp Pulse Resp B/P (MAP) Pulse Ox O2 Delivery O2 Flow Rate FiO2 07/06/20 12:39 82 07/06/20 12:00 35.4 87 20 140/60 (86) 99 Nasal Cannula 2.00 07/06/20 10:14 92 Nasal Cannula 2.00 07/06/20 08:00 35.7 85 18 191/88 (122) 99 Nasal Cannula 2.00 07/06/20 07:00 93 07/06/20 06:34 97 Nasal Cannula 2.00 07/06/20 04:34 37.0 89 18 144/79 (100) 97 Nasal Cannula 2.00 07/06/20 01:50 92 Nasal Cannula 2.00 07/06/20 01:00 103 07/05/20 23:58 37.1 110 18 188/88 (121) 97 Nasal Cannula 2.00 07/05/20 21:40 94 Nasal Cannula 2.00 07/05/20 20:00 Nasal Cannula 2.00 07/05/20 19:27 36.7 93 19 184/92 (122) 98 Nasal Cannula 2.00 07/05/20 19:00 102 07/05/20 18:25 96 Nasal Cannula 2.00 07/05/20 15:51 37.5 123 18 185/94 (124) 96 Nasal Cannula 2.00 07/05/20 14:35 97 Nasal Cannula 2.00 I & O 07/06/20 07:00 Intake Total 1700 ml Output Total 1200 ml Balance 500 ml Capillary Refill : Less Than 3 Seconds General Appearance: No Apparent Distress HEENT: PERRL/EOMI Neck: Full Range of Motion Respiratory: Chest Non Tender, Lungs Clear, Normal Breath Sounds Cardiovascular: Regular Rate, Rhythm Gastrointestinal: normal bowel sounds, non tender, soft Extremity: Normal Capillary Refill Neurologic/Psychiatric: Alert, Oriented x3 Skin: Normal Color Lymphatic: No Adenopathy Results Lab Laboratory Tests 07/05/20 16:04: Glucometer 190H 07/05/20 20:38: Glucometer 165H 07/06/20 04:30: White Blood Count 10.6, Red Blood Count 3.82, Hemoglobin 10.9L, Hematocrit 36, Mean Corpuscular Volume 94, Mean Corpuscular Hemoglobin 29, Mean Corpuscular He moglobin Concent 30L, Red Cell Distribution Width 15.7H, Platelet Count 193, Mean Platelet Volume 12.2, Immature Granulocyte % (Auto) 1, Neutrophils (%) (Auto) 73, Lymphocytes (%) (Auto) 15, Monocytes (%) (Auto) 9, Eosinophils (%) (Auto) 1, Basophils (%) (Auto) 1, Neutrophils # (Auto) 7.8, Lymphocytes # (Auto) 1.6, Monocytes # (Auto) 1.0, Eosinophils # (Auto) 0.1, Basophils # (Auto) 0.1, Immature Granulocyte # (Auto) 0.1, Sodium Level 136, Potassium Level 4.3, Chloride Level 98, Carbon Dioxide Level 27, Anion Gap 11, Blood Urea Nitrogen 7, Creatinine 0.85, Estimat Glomerular Filtration Rate > 60, BUN/Creatinine Ratio 8, Glucose Level 120H, Calcium Level 8.5, Corrected Calcium 9.2, Total Bilirubin 0.6, Aspartate Amino Transf (AST/SGOT) 34, Alanine Aminotransferase (ALT/SGPT) 28, Alkaline Phosphatase 87, Total Protein 5.9L, Albumin 3.1L 07/06/20 10:53: Glucometer 185H Microbiology 06/27/20 Urine Culture - Final, Complete NO GROWTH Assessment/Plan Assessment/Plan Assess & Plan/Chief Complaint symptomatic biliary dyskinesia, diarrhea, dark stools s/p laparoscopic cholecystectomy, EGD and colonoscopy. doing much better. diet as tolerated. increase ambulation. ok for home. PONCHO BROWN MD Jul 06, 2020 13:22
--- NOTE | 2020-07-06 13:38 | Cardiology Progress Note ---
Cardiology SOAP Progress Note Subjective: feels better today Objective: I&O/Vital Signs 07/06/20 07/06/20 07/06/20 07/06/20 01:50 04:34 06:34 07:00 Temp 37.0 Pulse 89 93 Resp 18 B/P (MAP) 144/79 (100) Pulse Ox 92 97 97 O2 Delivery Nasal Cannula Nasal Cannula Nasal Cannula O2 Flow Rate 2.00 2.00 2.00 07/06/20 07/06/20 07/06/20 07/06/20 08:00 10:14 12:00 12:39 Temp 35.7 35.4 Pulse 85 87 82 Resp 18 20 B/P (MAP) 191/88 (122) 140/60 (86) Pulse Ox 99 92 99 O2 Delivery Nasal Cannula Nasal Cannula Nasal Cannula O2 Flow Rate 2.00 2.00 2.00 07/06/20 00:00 Intake Total 600 ml Output Total 1200 ml Balance -600 ml Weight (Pounds): 219 Weight (Ounces): 1.0 Weight (Calculated Kilograms): 99.925754 Constitutional: AAO x 3, well-developed, well-nourished Respiratory: No accessory muscle use, No respiratory distress; chest expansion is symmetric, chest is bilaterally symmetric, lungs clear to auscultation Cardiovascular: irregularly irregular; No JVD; S1 and S2 Gastrointestional: No tender; soft, round, distended, audible bowel sounds Extremities: no lower extremity edema bilateral Neurologic/Psychiatric: grossly intact (moves all extremities) Skin: No rash on exposed areas, No ulcerations on exposed areas Results/Procedures: Labs Laboratory Tests 07/05/20 16:04: Glucometer 190H 07/05/20 20:38: Glucometer 165H 07/06/20 04:30: White Blood Count 10.6, Red Blood Count 3.82, Hemoglobin 10.9L, Hematocrit 36, Mean Corpuscular Volume 94, Mean Corpuscular Hemoglobin 29, Mean Corpuscular Hemoglobin Concent 30L, Red Cell Distribution Width 15.7H, Platelet Count 193, Mean Platelet Volume 12.2, Immature Granulocyte % (Auto) 1, Neutrophils (%) (Auto) 73, Lymphocytes (%) (Auto) 15, Monocytes (%) (Auto) 9, Eosinophils (%) (A uto) 1, Basophils (%) (Auto) 1, Neutrophils # (Auto) 7.8, Lymphocytes # (Auto) 1.6, Monocytes # (Auto) 1.0, Eosinophils # (Auto) 0.1, Basophils # (Auto) 0.1, Immature Granulocyte # (Auto) 0.1, Sodium Level 136, Potassium Level 4.3, Chloride Level 98, Carbon Dioxide Level 27, Anion Gap 11, Blood Urea Nitrogen 7, Creatinine 0.85, Estimat Glomerular Filtration Rate > 60, BUN/Creatinine Ratio 8, Glucose Level 120H, Calcium Level 8.5, Corrected Calcium 9.2, Total Bilirubin 0.6, Aspartate Amino Transf (AST/SGOT) 34, Alanine Aminotransferase (ALT/SGPT) 28, Alkaline Phosphatase 87, Total Protein 5.9L, Albumin 3.1L 07/06/20 10:53: Glucometer 185H Microbiology 06/27/20 Urine Culture - Final, Complete NO GROWTH A/P: Assessment/Dx: Chronic a-fib with controlled rate - OAC, but Eliquis is currently being held d/t concerns of GIB CAD - h/o coronary stent placed 4-5 yrs ago at [facility] S/P upper and lower endoscopy on 07-04-[address] Cooper - no active bleeding; gastritis; ext and internal hemorrhoids S/P lap carmelo by Dr. Cooper on 07-04-20 Echocardiogram of 06-29-20 showed LVEF 60-65%. [place] mildly dilated. H/o gastrointestinal bleed - Dr Young and Dr Cooper managing UTI - management per Medical services COPD H/O TIA's HTN HLD Fibromyalgia Carotid arterial dz - details unknown Right hip fracture following a non-syncopal fall in May 2020 - awaiting eval with orthopedic services in [place] N/V of undetermined etiology Plan: Complex management S/P endoscopy on 07-04-20, upper and lower, which showed no signs of active bleeding S/P cholecystectomy on 07-04-20 Advise resumption of OAC for stroke prophylaxis if ok with surgical services H/H has been stable Monitor lab Replace electrolytes as indicated Thank you for your consultation. Please call me if you have any questions. Richy Barragan MD, FACP, FACC, FSCAI, FHRS, CCDS Interventional Cardiology Cardiac Electrophysiology Vascular Medicine and Endovascular Interventions Marychuy BARRAGAN MD Jul 06, 2020 13:38
[2020-07-06 15:59] VITALS: BP 135/64
[2020-07-06 17:57] VITALS: BP 135/64
== END 2020-07-06 17:59 | disposition home health service (06) ==
LOC: EDUNIT# 14:59 → ER FS 15:02 → UNDOADMOB 17:38 → 4TH 17:38 → SDC 17:56 → 4TH 07-03 15:24 → SDC 07-06 17:59 → UNDODISOB 07-06 17:59
PROVIDERS: ATTEND Internal Medicine
DX: K81.1 Chronic cholecystitis (principal); K29.50 Unspecified chronic gastritis without bleeding; K82.8 Other specified diseases of gallbladder; K21.00 Gastro-esophageal reflux disease with esophagitis, without bleeding; K64.1 Second degree hemorrhoids; K57.30 Diverticulosis of large intestine without perforation or abscess without bleeding; E11.9 Type 2 diabetes mellitus without complications; I10 Essential (primary) hypertension; I48.91 Unspecified atrial fibrillation; J44.9 Chronic obstructive pulmonary disease, unspecified; E78.00 Pure hypercholesterolemia, unspecified; I25.10 Atherosclerotic heart disease of native coronary artery without angina pectoris; G89.29 Other chronic pain; M19.90 Unspecified osteoarthritis, unspecified site; M54.9 Dorsalgia, unspecified; N17.9 Acute kidney failure, unspecified; Z79.4 Long term (current) use of insulin; Z79.82 Long term (current) use of aspirin; Z79.899 Other long term (current) drug therapy; Z79.51 Long term (current) use of inhaled steroids; Z88.0 Allergy status to penicillin; Z88.5 Allergy status to narcotic agent; Z88.8 Allergy status to other drugs, medicaments and biological substances; Z87.891 Personal history of nicotine dependence; Z20.822 Contact with and (suspected) exposure to COVID-19
CPT/HCPCS: 36410; 36415; 43239; 45378; 47562; 51701; 72192; 73502; 76705; 76937; 78227; 80053 ×9; 81000; 82962 ×10; 83690; 83735 ×3; 83880; 84443; 84484; 85007; 85025 ×8; 85027; 86141; 87088; 88304; 88305; 93005; 93306; 94640 ×16; 94760 ×7; 96374; 97110 ×3; 97116; 97162; 97166; 97530; 97535; 99284; A9537; C1751; G0378; U0002; 87635

== ENCOUNTER 2020-07-10 15:18 | Emergency (ER) | payer MEDICARE, MEDICAID ==
[~2020-07-10] VITALS: Ht 161 cm; Wt 109.0 kg
[~2020-07-10 15:18] MED LIST changes: +ACET325T49 PO; +CALC260T15 PO; +FLUT1AER INH; +GABA-486 PO; +HYDR-87 PO; +INSU100I32 SC; +MAGN400T39 PO; +MONT10TA32 PO; +NITR0.4T39 SL; +OMEP20CA18 PO; +PANT40TA52 PO; +SEMA0.25 SQ; +SPIR25TA5 PO
--- NOTE | 2020-07-10 15:52 | ED Cardiac General ---
History of Present Illness General Chief Complaint: Cardiac/General Problems Stated Complaint: AFIB History of Present Illness Date Seen by Provider: Jul 10, 2020 Time Seen by Provider: 15:51 Initial Comments 85-year-old female presents from an outpatient clinic where she was seen and noted to have an elevated heart rate. Patient with a history of A. fib, takes metoprolol at bedtime and is on Eliquis subsequently. She denies any chest pain, feeling of palpitation or lightheadedness. She denies cough or shortness of air. She does complain of some abdominal pain since having a cholecystectomy laparoscopically last week. She does have some nausea without vomiting and some decreased appetite. He is having bowel movements. Allergies and Home Medications Allergies Coded Allergies: Penicillins (Verified Allergy, Unknown, 03/04/18) codeine (Verified Allergy, Unknown, 03/04/18) levofloxacin (Verified Allergy, Unknown, 03/04/18) meperidine (Verified Allergy, Unknown, 03/04/18) mirabegron (Verified Allergy, Unknown, 03/04/18) morphine (Verified Allergy, Unknown, 03/04/18) oxycodone (Verified Allergy, Unknown, 03/04/18) sitagliptin (Verified Allergy, Unknown, 03/04/18) Home Medications Acetaminophen 325 Mg Tablet, 325 MG PO Q4H PRN for PAIN-MILD (1-4), (Reported) Albuterol Sulfate 1 Puff Puff, 2 PUFF IH Q4H PRN for SHORTNESS OF BREATH, (Reported) Alendronate Sodium 70 Mg Tablet, 70 MG PO SUN, (Reported) Amitriptyline HCl 25 Mg Tablet, 25 MG PO HS, (Reported) Apixaban 5 Mg Tablet, 5 MG PO BID, (Reported) Aspirin 81 Mg Tablet.dr, 81 MG PO DAILY, (Reported) Benzonatate 100 Mg Capsule, 100 MG PO TID PRN for COUGH, (Reported) Calcium Carbonate 260 Mg Tablet, 260 MG PO DAILY, (Reported) Fluticasone/Vilanterol 1 Each Blst.w.dev, 1 PUFF INH DAILY, (Reported) Gabapentin 100 Mg Capsule, 100 MG PO BID, (Reported) Glimepiride 2 Mg Tablet, 2 MG PO DAILY, (Reported) Hydrocodone/Ibuprofen 1 Each Tablet, 1 EACH PO Q4HR PRN for PAIN-MODERATE (5-7) Prescribed by: MARK PAT on 07/06/20 0556 Insulin Degludec 100 Unit/1 Ml Insuln.pen, 20 UNITS SC HS, (Reported) Lisinopril 20 Mg Tablet, 20 MG PO BID, (Reported) Loratadine 10 Mg Tablet, 10 MG PO DAILY, (Reported) Magnesium Oxide 400 Mg Tablet, 400 MG PO DAILY, (Reported) Metoprolol Succinate 50 Mg Tab.er.24h, 50 MG PO HS, (Reported) Montelukast Sodium 10 Mg Tablet, 10 MG PO HS, (Reported) Multivitamin 1 Each Tablet, 1 EACH PO DAILY, (Reported) Nitroglycerin 0.4 Mg Tab.subl, 0.4 MG SL UD PRN for CHEST PAIN, (Reported) Pantoprazole Sodium 40 Mg Tablet.dr, 40 MG PO DAILY Prescribed by: MARK PAT on 07/06/20 0555 Rosuvastatin Calcium 20 Mg Tablet, 20 MG PO DAILY, (Reported) Semaglutide 0.25 Mg/0.2 Ml Pen.injctr, 0.5 MG SQ SUN, (Reported) Spironolactone 25 Mg Tablet, 25 MG PO DAILY, (Reported) Patient Home Medication List Home Medication List Reviewed: Yes Review of Systems Review of Systems Constitutional: No chills, No fever; malaise; No weakness EENTM: No Symptoms Reported Respiratory: Denies Cough, Denies Shortness of Air Cardiovascular: Denies Chest Pain, Denies Edema, Denies Lightheadedness, Denies Palpitations, Denies Syncope Gastrointestinal: Abdomen Distended, Abdominal Pain; Denies Constipated, Denies Diarrhea; Nausea, Poor Appetite, Poor Fluid Intake Musculoskeletal: No back pain, No joint pain Skin: No change in color, No rash Psychiatric/Neurological: Denies Headache, Denies Numbness, Denies Paresthesia, Denies Tremors, Denies Weakness Past Ocbrppm-Gopkww-Xmlwzs Hx Past Med/Social Hx: Reviewed Nursing Past Med/Soc Hx Patient Social History Type Used: Cigarettes Former Smoker, Quit: Jul 22, 1992 2nd Hand Smoke Exposure: No Recent Hopitalizations: No Immunizations Up To Date Tetanus Booster (TDap): Unknown Date of Pneumonia Vaccine: Dec 12, 2017 Date of Influenza Vaccine: Feb 11, 2019 Seasonal Allergies Seasonal Allergies: No Past Medical History Surgeries: Yes (Exploratory Lap) Hysterectomy, Tubal Ligation Respiratory: Yes Asthma Currently Using CPAP: No Currently Using BIPAP: No Cardiac: Yes Coronary Artery Disease, Hypertension Neurological: Yes Neuropathy Genitourinary: Yes (INCONT) UTI-Chronic Gastrointestinal: No Musculoskeletal: Yes (STENOSIS) Arthritis, Chronic Back Pain Endocrine: Yes Diabetes, Insulin dep HEENT: No Cancer: Yes Skin Did You Recieve Any Treatments: Yes What Type of Treatment Did You: Surgical Intervention Psychosocial: No Integumentary: Yes (Redness R foot and drainage between 4th and 5th R toe) Recent Skin Changes Blood Disorders: No Family Medical History Cardiovascular disease G8 BROTHER Completed stroke G8 SISTER Diabetes mellitus 19 MOTHER G8 BROTHER Fibromyalgia DAUGHTER Myocardial infarction 19 FATHER G8 BROTHER Physical Exam Vital Signs Vital Signs - First Documented 07/10/20 15:20 Temp 36.5 Pulse 91 Resp 17 B/P (MAP) 145/78 (100) Pulse Ox 97 O2 Delivery Room Air Capillary Refill : Height, Weight, BMI Height: 5'63.00" Weight: 219lbs. 1.0oz. 99.199818ch; 41.71 BMI Method: General Appearance: No Apparent Distress, WD/WN Neck: Non Tender, Supple Respiratory: Chest Non Tender, Lungs Clear, Normal Breath Sounds, No Accessory Muscle Use, No Respiratory Distress Cardiovascular: No Edema, No JVD, Irregularly Irregular, Tachycardia Gastrointestinal: No Organomegaly, No Pulsatile Mass, Soft, Distended; No Guarding, No Hepatomegaly, No Hernia, No Rebound, No Splenomegaly; Tenderness (diffuse, non-localized) Extremity: Normal Capillary Refill, Non Tender, No Pedal Edema Progress/Results/Core Measures Results/Orders Lab Results Laboratory Tests Test 07/10/20 16:30 Range/Units White Blood Count 5.8 4.3-11.0 10^3/uL Red Blood Count 3.82 L 4.35-5.85 10^6/uL Hemoglobin 11.2 L 11.5-16.0 G/DL Hematocrit 37 35-52 % Mean Corpuscular Volume 97 80-99 FL Mean Corpuscular Hemoglobin 29 25-34 PG Mean Corpuscular Hemoglobin Concent 30 L 32-36 G/DL Red Cell Distribution Width 16.7 H 10.0-14.5 % Platelet Count 218 130-400 10^3/uL Mean Platelet Volume 12.4 H 7.4-10.4 FL Immature Granulocyte % (Auto) 1 % Neutrophils (%) (Auto) 70 42-75 % Lymphocytes (%) (Auto) 16 12-44 % Monocytes (%) (Auto) 10 0-12 % Eosinophils (%) (Auto) 2 0-10 % Basophils (%) (Auto) 1 0-10 % Neutrophils # (Auto) 4.0 1.8-7.8 X 10^3 Lymphocytes # (Auto) 0.9 L 1.0-4.0 X 10^3 Monocytes # (Auto) 0.6 0.0-1.0 X 10^3 Eosinophils # (Auto) 0.1 0.0-0.3 10^3/uL Basophils # (Auto) 0.1 0.0-0.1 10^3/uL Immature Granulocyte # (Auto) 0.1 0.0-0.1 10^3/uL Sodium Level 138 135-145 MMOL/L Potassium Level 3.9 3.6-5.0 MMOL/L Chloride Level 99 98-107 MMOL/L Carbon Dioxide Level 26 21-32 MMOL/L Anion Gap 13 5-14 MMOL/L Blood Urea Nitrogen 8 7-18 MG/DL Creatinine 0.95 0.60-1.30 MG/DL Estimat Glomerular Filtration Rate 56 BUN/Creatinine Ratio 8 Glucose Level 177 H 70-105 MG/DL Calcium Level 8.5 8.5-10.1 MG/DL Corrected Calcium 9.0 8.5-10.1 MG/DL Total Bilirubin 0.2 0.1-1.0 MG/DL Aspartate Amino Transf (AST/SGOT) 17 5-34 U/L Alanine Aminotransferase (ALT/SGPT) 13 0-55 U/L Alkaline Phosphatase 108 40-136 U/L Troponin I < 0.30 <0.30 NG/ML Total Protein 6.5 6.4-8.2 GM/DL Albumin 3.4 3.2-4.5 GM/DL My Orders Orders - ROVENSTINEJEANETTE DO Ed Iv/Invasive Line Start (07/10/20 15:56) Cbc With Automated Diff (07/10/20 15:56) Comprehensive Metabolic Panel (07/10/20 15:56) Troponin I Fs (07/10/20 15:56) Ekg Tracing (3/30/21 15:56) Ns Iv 1000 Ml (Sodium Chloride 0.9%) (07/10/20 16:00) Metoprolol Tartrate Injection (Lopressor (07/10/20 16:00) Acute Abd Series (07/10/20 15:56) Medications Given in ED Current Medications Medications Dose Ordered Sig/Go Route Start Time Stop Time Status Last Admin Dose Admin Metoprolol Tartrate 5 mg ONCE ONCE IV 07/10/20 16:00 07/10/20 16:01 DC 07/10/20 16:18 5 MG Vital Signs/I&O 07/10/20 15:20 Temp 36.5 Pulse 91 Resp 17 B/P (MAP) 145/78 (100) Pulse Ox 97 O2 Delivery Room Air Diagnostic Imaging Diagonstic Imaging: Xray Comments IMPRESSION: 1. The appearance of the chest has worsened since the prior study as there has been a mild increase in the atelectasis/infiltrate and fluid involving the left lung base. A follow-up chest exam would be recommended for further study. 2. The bowel gas pattern is nonspecific. There is no acute abnormality identified. 3. There is at least a moderate amount of fecal material in the ascending colon. Dictated on workstation # [id number] Dict: 07/10/20 1705 Trans: 07/10/20 1712 [facility] [id number] Interpreted by: IGOR VASQUEZ MD Electronically signed by: Departure Impression Primary Impression: Atrial fibrillation Qualified Codes: I48.20 - Chronic atrial fibrillation, unspecified Additional Impressions: Atelectasis Abdominal pain Qualified Codes: R10.84 - Generalized abdominal pain Disposition: HOME, SELF-CARE Condition: Stable Departure-Patient Inst. Decision time for Depature: 16:51 Referrals: MARGUERITE CADENA APRN (PCP/Family) Primary Care Physician Patient Instructions: Atrial Fibrillation (DC) Add. Discharge Instructions: Increase your metoprolol to 50mg twice daily....you are currently only taking this at bedtime. Use your incentive spirometry (your breathing device) every 2 hours as instructed. This is to help prevent developing a pneumonia and to keep fluid off your lungs. Continue your diet as tolerated and if unable to eat normal food, drink a low carb protein shake as a meal replacement. See your Primary care provider in 1 week for a re-evaluation and to repeat a chest x-ray. All discharge instructions reviewed with patient and/or family. Voiced understanding. Scripts Metoprolol Tartrate (Metoprolol Tartrate) 50 Mg Tablet 50 MG PO BID, #60 TAB Prov: JEANETTE LAWSON DO 07/10/20 JEANETTE LAWSON DO Jul 10, 2020 15:52
[2020-07-10] MEDS ORDERED: NS IV 1000 ML 1,000 ML IV SCH (16:00)
[2020-07-10] MEDS ORDERED: meTOprolol 5 MG/5 ML (LOPRESSOR) VIAL IV ONE (16:00)
[2020-07-10 16:59] LABS: HEMATOCRIT 37 % (35-52); HEMOGLOBIN 11.2 G/DL (11.5-16.0); MEAN CORPUSCULAR HEMOGLOBIN 29 PG (25-34); MEAN CORPUSCULAR HGB CONC 30 G/DL (32-36); MEAN CORPUSCULAR VOLUME 97 FL (80-99); MEAN PLATELET VOLUME 12.4 FL (7.4-10.4); PLATELET COUNT 218 10^3/uL (130-400); WHITE BLOOD COUNT 5.8 10^3/uL (4.3-11.0)
[2020-07-10 17:00] LABS: BASOPHILS # (AUTO) 0.1 10^3/uL (0.0-0.1); BASOPHILS % (AUTO) 1 % (0-10); EOSINOPHILS # (AUTO) 0.1 10^3/uL (0.0-0.3); EOSINOPHILS % (AUTO) 2 % (0-10); LYMPHOCYTES # (AUTO) 0.9 X 10^3 (1.0-4.0); LYMPHOCYTES % (AUTO) 16 % (12-44); MONOCYTES # (AUTO) 0.6 X 10^3 (0.0-1.0); MONOCYTES % (AUTO) 10 % (0-12); NEUTROPHILS % (AUTO) 70 % (42-75)
[2020-07-10 17:10] LABS: ALANINE AMINOTRANSFERASE 13 U/L (0-55); ALBUMIN 3.4 GM/DL (3.2-4.5); ALKALINE PHOSPHATASE 108 U/L (40-136); BILIRUBIN,TOTAL 0.2 MG/DL (0.1-1.0); BUN/CREATININE RATIO 8; CALCIUM 8.5 MG/DL (8.5-10.1); CARBON DIOXIDE 26 MMOL/L (21-32); CHLORIDE 99 MMOL/L (98-107); CREATININE SERUM 0.95 MG/DL (0.60-1.30); GFR ESTIMATED 56; GLUCOSE 177 MG/DL (70-105); POTASSIUM 3.9 MMOL/L (3.6-5.0); SODIUM 138 MMOL/L (135-145); TOTAL PROTEIN 6.5 GM/DL (6.4-8.2)
--- NOTE | 2020-07-10 17:13 | Diagnostic Imaging Report ---
EXAM: Acute abdomen series at 4:47 PM INDICATION: Abdominal pain The accompanying erect PA chest shows that the heart size is stable when compared to the prior exam of 05/30/2020. However, in the interval since the previous study, there has been a mild increase in the atelectasis/infiltrate and fluid involving the left lung base. The left upper lung and right lung are generally clear. The mediastinum is not widened. Supine and erect views of the abdomen were obtained. There is gas in both the large and small bowel in a nonspecific fashion. The amount of bowel gas present is somewhat less than noted on the recent pelvis exam of 07/03/2020. There is no evidence for a bowel obstruction. There has been some increase in the amount of fecal material in the ascending colon. There is only a very small amount of fecal material throughout the remainder of the colon. There is no mass or organomegaly identified. A single surgical clip is seen overlying the right mid abdomen. The osseous structures are intact. In particular, there is still no sign of a fracture involving the right greater trochanter. IMPRESSION: 1. The appearance of the chest has worsened since the prior study as there has been a mild increase in the atelectasis/infiltrate and fluid involving the left lung base. A follow-up chest exam would be recommended for further study. 2. The bowel gas pattern is nonspecific. There is no acute abnormality identified. 3. There is at least a moderate amount of fecal material in the ascending colon. Dictated by: Dictated on workstation # [id number]
[2020-07-10] MEDS ORDERED: METO50TA15 PO (17:33)
[2020-07-10 17:35] VITALS: BP 168/75
== END 2020-07-10 17:35 | disposition home or self-care (01) ==
LOC: EDUNIT# 15:18 → ER FS 15:19
DX: I48.20 Chronic atrial fibrillation, unspecified (principal); J98.11 Atelectasis; R10.84 Generalized abdominal pain; E11.40 Type 2 diabetes mellitus with diabetic neuropathy, unspecified; I10 Essential (primary) hypertension; I25.10 Atherosclerotic heart disease of native coronary artery without angina pectoris; J45.909 Unspecified asthma, uncomplicated; Z87.891 Personal history of nicotine dependence; Z85.820 Personal history of malignant melanoma of skin; Z79.51 Long term (current) use of inhaled steroids; Z79.01 Long term (current) use of anticoagulants; Z79.82 Long term (current) use of aspirin; Z79.4 Long term (current) use of insulin; Z88.0 Allergy status to penicillin; Z88.1 Allergy status to other antibiotic agents; Z88.5 Allergy status to narcotic agent; Z88.8 Allergy status to other drugs, medicaments and biological substances; Z79.02 Long term (current) use of antithrombotics/antiplatelets; Z79.899 Other long term (current) drug therapy
CPT/HCPCS: 36415; 74022; 80053; 84484; 85025; 93005

== ENCOUNTER 2021-06-04 16:50 | Inpatient (IN) | payer MEDICARE, MEDICAID ==
[~2021-06-04] VITALS: Ht 157.5 cm; Wt 106.2 kg
[~2021-06-04 16:50] MED LIST changes: +METO50TA15 PO; +MONT-40 PO; -MONT10TA32 PO
--- NOTE | 2021-06-04 17:02 | ED Abdominal Pain ---
General Chief Complaint: Abdominal/GI Problems Stated Complaint: VOMITTING History of Present Illness Date Seen by Provider: Jun 04, 2021 Time Seen by Provider: 17:01 Initial Comments 85yr F with PMH of atrial fibrillation, diabetes mellitus, CAD, hypertension, cholecystectomy, abdominal exploratory surgery of unknown date, is brought in by her son with complaints of nausea, vomiting, diarrhea, and generalized abdominal pain which began of sudden onset last night, which has been ongoing all night into today. Patient feels tired and lethargic. Patient cannot keep food down. Denies sick contact, chest pain, palpitations, constipation, shortness of breath, dizziness. Pt did not take anyof hermedications or insulin last night or today, since she had not eaten and did not feel well and was vomiting. Allergies and Home Medications Allergies Coded Allergies: Penicillins (Verified Allergy, Unknown, 03/04/18) codeine (Verified Allergy, Unknown, 03/04/18) levofloxacin (Verified Allergy, Unknown, 03/04/18) meperidine (Verified Allergy, Unknown, 03/04/18) mirabegron (Verified Allergy, Unknown, 03/04/18) morphine (Verified Allergy, Unknown, 03/04/18) oxycodone (Verified Allergy, Unknown, 03/04/18) sitagliptin (Verified Allergy, Unknown, 03/04/18) Patient Home Medication List Home Medication List Reviewed: Yes Acetaminophen (Acetaminophen) 325 Mg Tablet, 325 MG PO Q4H PRN for PAIN-MILD (1- 4), (Reported) Entered as Reported by: YOHANNES SUN on 06/28/20 1349 Albuterol Sulfate (Proair Hfa) 1 Puff Puff, 2 PUFF IH Q4H PRN for SHORTNESS OF BREATH, (Reported) Entered as Reported by: CINTHIA RUBIO on 03/04/18 1442 Alendronate Sodium (Alendronate Sodium) 70 Mg Tablet, 70 MG PO SUN, (Reported) Entered as Reported by: CINTHIA RUBIO on 03/04/18 1434 Amitriptyline HCl (Amitriptyline HCl) 25 Mg Tablet, 25 MG PO HS, (Reported) Entered as Reported by: CINTHIA RUBIO on 03/04/18 1434 Apixaban (Eliquis) 5 Mg Tablet, 5 MG PO BID, (Reported) Entered as Reported by: CINTHIA RUBIO on 03/04/18 1434 Aspirin (Aspirin EC) 81 Mg Tablet.dr, 81 MG PO DAILY, (Reported) Entered as Reported by: CINTHIA RUBIO on 03/04/18 1434 Benzonatate (Tessalon Perle) 100 Mg Capsule, 100 MG PO TID PRN for COUGH, (Reported) Entered as Reported by: CINTHIA RUBIO on 03/04/18 1442 Calcium Carbonate (Calcium Carbonate) 260 Mg Tablet, 260 MG PO DAILY, (Reported) Entered as Reported by: YOHANNES SUN on 06/28/20 1352 Fluticasone/Vilanterol (Breo Ellipta 100-25 Mcg INH) 1 Each Blst.w.dev, 1 PUFF INH DAILY, (Reported) Entered as Reported by: YOHANNES SUN on 06/28/20 1349 Gabapentin (Gabapentin) 100 Mg Capsule, 100 MG PO BID, (Reported) Entered as Reported by: YOHANNES SUN on 06/28/20 1349 Glimepiride (Glimepiride) 2 Mg Tablet, 2 MG PO DAILY, (Reported) Entered as Reported by: CINTHIA RUBIO on 03/04/18 1434 Hydrocodone/Ibuprofen (Hydrocodone-Ibuprofen 7.5-200) 1 Each Tablet, 1 EACH PO Q4HR PRN for PAIN-MODERATE (5-7) Prescribed by: MARK PAT on 07/06/20 0556 Insulin Degludec (Tresiba Flextouch U-100) 100 Unit/1 Ml Insuln.pen, 20 UNITS SC HS, (Reported) Entered as Reported by: YOHANNES SUN on 06/28/20 1349 Lisinopril (Lisinopril) 20 Mg Tablet, 20 MG PO BID, (Reported) Entered as Reported by: CINTHIA RUBIO on 03/04/18 1434 Loratadine (Loratadine) 10 Mg Tablet, 10 MG PO DAILY, (Reported) Entered as Reported by: CINTHIA RUBIO on 03/04/18 1434 Magnesium Oxide (Magnesium) 400 Mg Tablet, 400 MG PO DAILY, (Reported) Entered as Reported by: YOHANNES SUN on 06/28/20 1349 Metoprolol Succinate (Metoprolol Succinate) 50 Mg Tab.er.24h, 50 MG PO HS, (Reported) Entered as Reported by: CINTHIA RUBIO on 03/04/18 1434 Metoprolol Tartrate (Metoprolol Tartrate) 50 Mg Tablet, 50 MG PO BID Prescribed by: JEANETTE LAWSON on 07/10/20 1733 Montelukast Sodium (Montelukast Sodium) 10 Mg Tablet, 10 MG PO HS, (Reported) Entered as Reported by: YOHANNES SUN on 06/28/20 1349 Multivitamin (Multi-Vitamin Daily) 1 Each Tablet, 1 EACH PO DAILY, (Reported) Entered as Reported by: CINTHIA RUBIO on 03/04/18 1442 Nitroglycerin (Nitroglycerin) 0.4 Mg Tab.subl, 0.4 MG SL UD PRN for CHEST PAIN, (Reported) Entered as Reported by: YOHANNES SUN on 06/28/20 1349 Pantoprazole Sodium (Pantoprazole Sodium) 40 Mg Tablet.dr, 40 MG PO DAILY Prescribed by: MARK PAT on 07/06/20 0555 Rosuvastatin Calcium (Rosuvastatin Calcium) 20 Mg Tablet, 20 MG PO DAILY, (Reported) Entered as Reported by: CINTHIA RUBIO on 03/04/18 1434 Semaglutide (Ozempic) 0.25 Mg/0.2 Ml Pen.injctr, 0.5 MG SQ SUN, (Reported) Entered as Reported by: YOHANNES SUN on 06/28/20 1349 Spironolactone (Spironolactone) 25 Mg Tablet, 25 MG PO DAILY, (Reported) Entered as Reported by: YOHANNES SUN on 06/28/20 1349 Review of Systems Review of Systems Constitutional: malaise, weakness EENTM: No Symptoms Reported Respiratory: No Symptoms Reported Cardiovascular: No Symptoms Reported Gastrointestinal: Abdominal Pain, Diarrhea, Nausea, Poor Appetite, Vomiting Genitourinary: No Symptoms Reported Musculoskeletal: no symptoms reported Skin: no symptoms reported Psychiatric/Neurological: No Symptoms Reported Endocrine: No Symptoms Reported Hematologic/Lymphatic: No Symptoms Reported Past Reiilhs-Thhxni-Rqtrzw Hx Immunizations Up To Date Tetanus Booster (TDap): Unknown Seasonal Allergies Seasonal Allergies: No Past Medical History Surgeries: Yes (Exploratory Lap) Hysterectomy, Tubal Ligation Respiratory: Yes Asthma Currently Using CPAP: No Currently Using BIPAP: No Cardiac: Yes Coronary Artery Disease, Hypertension Neurological: Yes Neuropathy Genitourinary: Yes (INCONT) UTI-Chronic Gastrointestinal: No Musculoskeletal: Yes (STENOSIS) Arthritis, Chronic Back Pain Endocrine: Yes Diabetes, Insulin dep HEENT: No Cancer: Yes Skin Did You Recieve Any Treatments: Yes What Type of Treatment Did You: Surgical Intervention Psychosocial: No Integumentary: Yes (Redness R foot and drainage between 4th and 5th R toe) Recent Skin Changes Blood Disorders: No Family Medical History Cardiovascular disease G8 BROTHER Completed stroke G8 SISTER Diabetes mellitus 19 MOTHER G8 BROTHER Fibromyalgia DAUGHTER Myocardial infarction 19 FATHER G8 BROTHER Physical Exam Vital Signs Vital Signs - First Documented 06/04/21 17:20 Temp 35.7 Pulse 107 Resp 18 B/P (MAP) 105/68 (80) Pulse Ox 96 O2 Delivery Room Air Capillary Refill : Height/Weight/BMI Height: 5'63.00" Weight: 219lbs. 1.0oz. 99.074296mx; 42.00 BMI Method: General Appearance: mild distress, other (tenting of skin) HEENT: PERRL/EOMI, pharynx normal Neck: non-tender, full range of motion, supple Respiratory: lungs clear, normal breath sounds, no respiratory distress Cardiovascular: normal peripheral pulses, regular rate, rhythm Gastrointestinal: normal bowel sounds, soft, distended (mild), guarding Extremities: normal range of motion Back: normal inspection, no vertebral tenderness Neurologic/Psychiatric: alert, oriented x 3 Skin: normal color Lymphatic: no adenopathy Progress/Results/Core Measures Results/Orders Lab Results Laboratory Tests Test 06/04/21 17:10 06/04/21 18:27 06/04/21 18:55 06/04/21 19:20 Range/Units White Blood Count 7.7 4.3-11.0 10^3/uL Red Blood Count 5.15 H 3.80-5.11 10^6/uL Hemoglobin 15.1 11.5-16.0 g/dL Hematocrit 46 35-52 % Mean Corpuscular Volume 90 80-99 fL Mean Corpuscular Hemoglobin 29 25-34 pg Mean Corpuscular Hemoglobin Concent 33 32-36 g/dL Red Cell Distribution Width 14.0 10.0-14.5 % Platelet Count 232 130-400 10^3/uL Mean Platelet Volume 13.2 H 9.0-12.2 fL Immature Granulocyte % (Auto) 1 % Neutrophils (%) (Auto) 85 H 42-75 % Lymphocytes (%) (Auto) 10 L 12-44 % Monocytes (%) (Auto) 4 0-12 % Eosinophils (%) (Auto) 0 0-10 % Basophils (%) (Auto) 1 0-10 % Neutrophils # (Auto) 6.6 1.8-7.8 10^3/uL Lymphocytes # (Auto) 0.8 L 1.0-4.0 10^3/uL Monocytes # (Auto) 0.3 0.0-1.0 10^3/uL Eosinophils # (Auto) 0.0 0.0-0.3 10^3/uL Basophils # (Auto) 0.0 0.0-0.1 10^3/uL Immature Granulocyte # (Auto) 0.1 0.0-0.1 10^3/uL Sodium Level 132 L 135 135-145 MMOL/L Potassium Level 5.5 H 4.8 3.6-5.0 MMOL/L Chloride Level 93 L 98 98-107 MMOL/L Carbon Dioxide Level 17 L 16 L 21-32 MMOL/L Anion Gap 22 H 21 H 5-14 MMOL/L Blood Urea Nitrogen 42 H 37 H 7-18 MG/DL Creatinine 1.14 1.01 0.60-1.30 MG/DL Estimat Glomerular Filtration Rate 48 55 BUN/Creatinine Ratio 37 37 Glucose Level 406 *H 280 H 70-105 MG/DL Calcium Level 9.3 8.1 L 8.5-10.1 MG/DL Corrected Calcium 9.3 8.5-10.1 MG/DL Total Bilirubin 0.3 0.1-1.0 MG/DL Aspartate Amino Transf (AST/SGOT) 30 5-34 U/L Alanine Aminotransferase (ALT/SGPT) 32 0-55 U/L Alkaline Phosphatase 140 H 40-136 U/L Troponin I 0.63 *H 1.17 *H <0.30 NG/ML Total Protein 7.9 6.4-8.2 GM/DL Albumin 4.0 3.2-4.5 GM/DL Lipase 35 8-78 U/L Urine Color YELLOW Urine Clarity CLEAR Urine pH 6.0 5-9 Urine Specific [place] 1.020 1.016-1.022 Urine Protein NEGATIVE NEGATIVE Urine Glucose (UA) TRACE H NEGATIVE Urine Ketones 1+ H NEGATIVE Urine Nitrite NEGATIVE NEGATIVE Urine Bilirubin NEGATIVE NEGATIVE Urine Urobilinogen 0.2 < = 1.0 MG/DL Urine Leukocyte Esterase NEGATIVE NEGATIVE Urine RBC (Auto) NEGATIVE NEGATIVE Urine RBC NONE /HPF Urine WBC 0-2 /HPF Urine Squamous Epithelial Cells 0-2 /HPF Urine Crystals NONE /LPF Urine Bacteria TRACE /HPF Urine Casts PRESENT /LPF Urine Hyaline Casts RARE /LPF Urine Mucus NEGATIVE /LPF Urine Culture Indicated NO Glucometer 274 H 70-110 MG/DL Test 06/04/21 19:40 Range/Units Arterial Blood pH 7.24 *L 7.37-7.43 My Orders Orders - EDI ONEAL MD Comprehensive Metabolic Panel (06/04/21 17:24) Lipase (06/04/21 17:24) Ua Culture If Indicated (06/04/21 17:24) Cbc With Automated Diff (06/04/21 17:24) Ct Abdomen/Pelvis W (06/04/21 17:24) Ed Iv/Invasive Line Start (06/04/21 17:24) Ns Iv 1000 Ml (Sodium Chloride 0.9%) (06/04/21 17:30) Troponin I Fs (06/04/21 17:24) Ondansetron Injection (Zofran Injectio (06/04/21 17:30) Iohexol Injection (Omnipaque 350 Mg/Ml 1 (06/04/21 17:45) Received Contrast (Hold Metformin- Contr (06/04/21 17:45) Sodium Chloride Flush (Catheter Flush Sy (06/04/21 17:45) Ns (Ivpb) (Sodium Chloride 0.9% Ivpb Bag (06/04/21 17:45) Insulin (Regular) Human (Novolin R (Per (06/04/21 17:57) Ekg Tracing (06/04/21 18:02) Cbc With Automated Diff (06/04/21 18:02) Magnesium (06/04/21 18:02) Ekg Tracing (06/04/21 18:02) Comprehensive Metabolic Panel (06/04/21 18:02) Myoglobin Serum (06/04/21 18:02) Protime With Inr (06/04/21 18:02) Partial Thromboplastin Time (06/04/21 18:02) O2 (06/04/21 18:02) Monitor-Rhythm Ecg Trace Only (06/04/21 18:02) Lipid Panel (06/05/21 06:00) Aspirin Chewable Tablet (Baby Aspirin Ch (06/04/21 18:15) Ed Iv/Invasive Line Start (06/04/21 18:02) Troponin I Fs (06/04/21 18:02) Chest Pa/Lat (2 View) (06/04/21 18:03) Ed Iv/Invasive Line Start (06/04/21 18:15) Ns Iv 1000 Ml (Sodium Chloride 0.9%) (06/04/21 18:15) Metoprolol Succinate (Xl) Tab (Toprol Xl (06/04/21 18:15) Ns Iv 1000 Ml (Sodium Chloride 0.9%) (06/04/21 18:17) Metoclopramide Injection (Reglan Injecti (06/04/21 19:24) Troponin I Fs (06/04/21 19:25) Basic Metabolic Panel (06/04/21 19:27) Ed Iv/Invasive Line Start (06/04/21 19:28) Ns Iv 1000 Ml (Sodium Chloride 0.9%) (06/04/21 19:28) Abg Ph (06/04/21 19:28) Ng Tube Insert & Assessment (06/04/21 19:37) Norepinephrine 8 Mg/250 Ml (Norepinephri (06/04/21 20:03) Heparin (Bolus Per Protocol) (Heparin (B (06/04/21 20:03) Partial Thromboplastin Time (06/04/21 20:17) Protime With Inr (06/04/21 20:17) Medications Given in ED Current Medications Medications Dose Ordered Sig/Go Route Start Time Stop Time Status Last Admin Dose Admin Aspirin 324 mg ONCE ONCE PO 06/04/21 18:15 06/04/21 18:16 DC 06/04/21 18:20 324 MG Iohexol 100 ml ONCE ONCE IV 06/04/21 17:45 06/04/21 17:50 DC 06/04/21 18:54 50 ML Ondansetron HCl 4 mg ONCE ONCE IVP 06/04/21 17:30 06/04/21 17:31 DC 06/04/21 17:31 4 MG Sodium Chloride 10 ml NEEDED PRN IV 06/04/21 17:45 06/04/21 18:54 10 ML Sodium Chloride 100 ml ONCE ONCE IV 06/04/21 17:45 06/04/21 17:50 DC 06/04/21 18:54 80 ML Vital Signs/I&O 06/04/21 17:20 Temp 35.7 Pulse 107 Resp 18 B/P (MAP) 105/68 (80) Pulse Ox 96 O2 Delivery Room Air Progress Progress Note : Progress Note 1.SMALL BOWEL OBSTRUCTION: - CT ABD: SBO - Labs - UA shows 1+ ketones - Zofran 4mg iv STAT, then Reglan 10mg iv - NS IVF - Discussed with surgery consult - Unable to pass NG tube since 16 FR is the smallest we have and pt has h/o nose fracture and deviated septum and would not allow the NG tube to pass. Will need smaller NG tube to be placed in [place] 2. DEHYDRATION/ ACUTE HYPERGLYCEMIA: - NS IVF bolus x 2 - Blood sugar was 405, then came down to 270's with 5u of regular insulin, and pt feeling better with improvement of nausea. - Repeat BMP - pH is 7.24 3. A-FIB: - Pt has chronic A-fib on Eliquis 5mg and Metoprolol 50mg, however pt did not take this medication yesterday or today. - Heart rate initially 105-110, it did not go over 120 at any time in the ER. The reason I gave Metoprolol 50mg initially, was to prevent going into RVR over 120. 4. ELEVTAED TROPONIN: NSTEMI: - Troponin was initially 0.625 and was given ASA 324mg , 2nd troponin was 1.17 - Pt tolerated oral medications without vomiting,and before CT came back showing SBO - Just after EMS came for transfer, pt became hypotensive but still AOx3. Norepinephrine iv drip started and mini bolus of NS, brought her BP up. - Discussed with Cardiology, started on heparin bolus and drip prior to leaving ER Diagnostic Imaging Diagonstic Imaging: CT Plain Films/CT/US/NM/MRI: abdomen Comments [place] NAME: BERNARDO BUCKLEY MED REC#: [id number] PT STATUS: REG ER : 1935 PHYSICIAN: EDI ONEAL MD ADMIT DATE: 06/04/21/ER FS Signed Date of Exam:06/04/21 CT ABDOMEN/PELVIS W PROCEDURE: CT abdomen and pelvis with contrast. TECHNIQUE: Multiple contiguous axial images were obtained through the abdomen and pelvis after administration of intravenous contrast. Auto Exposure Controls were utilized during the CT exam to meet ALARA standards for radiation dose reduction. All CT scans use one or more of the following dose optimizing techniques: automated exposure control, MA and/or KvP adjustment based on patient size and exam type or iterative reconstruction. INDICATION: Abdominal pain. COMPARISON: No prior studies are available for comparison. FINDINGS: Lung bases are clear. There is generalized low density throughout the liver, consistent with hepatic steatosis. No discrete liver mass is detected. Gallbladder is surgically absent. No biliary ductal dilatation is seen. Pancreas and spleen are unremarkable. No adrenal mass is detected. Right kidney contains a small cortical low-attenuation lesion in the upper pole measuring 16 mm and suggestive of a cyst. No hydronephrosis noted. Aorta is heavily calcified but nonaneurysmal. There appear to be some dilated and fluid-filled small bowel loops in the central abdomen. There is significant laxity to the anterior abdominal wall with diastasis of the rectus musculature. No definite focal abdominal wall defect is seen to suggest a ventral hernia. No bowel wall thickening is seen. There are normal-caliber small bowel loops distally and possibility of small bowel obstruction cannot be excluded. There is no free air. There is no free fluid or fluid collection. Bladder is decompressed by Grant catheter. Bony structures demonstrate compression deformity of T11 vertebral body which is near vertebra plana. There is also probable superior endplate fracture of L2. These could be chronic. There is no retropulsion. IMPRESSION: 1. Dilated small bowel loops with transition distally, concerning for small bowel obstruction. Small bowel study would be useful for further evaluation. No free air, free fluid or fluid collection is detected. 2. Probable chronic compression deformities involving T11 and L2. Dictated by: Dictated on workstation # [id number] Dict: 06/04/211912 Trans: 06/04/211938 AS6 [id number] Interpreted by: LUIS ANTONIO ARCHULETA MD Electronically signed by: LUIS ANTONIO ARCHULETA MD 06/04/211938 NAME: MARCIOBERNARDO [facility] REC#: [id number] PT STATUS: REG ER : 1935 PHYSICIAN: EDI ONEAL MD ADMIT DATE: 06/04/21/ER FS Signed Date of Exam:06/04/21 CHEST PA/LAT (2 VIEW) Two-view chest is compared to prior study from June 15, 2019. INDICATION: Chest pain. FINDINGS: There is stable enlargement of the cardiac silhouette without current evidence of failure or edema. There are some chronic interstitial changes within the lungs, but no findings of new alveolar consolidation or pneumonia. There is no large effusion. There is no pneumothorax. There are multilevel degenerative features present throughout the spine. IMPRESSION: 1. Chronic interstitial changes within the lungs without findings of new pneumonia or evidence of edema. Dictated by: Dictated on workstation # [id number] Dict: 06/04/211909 Trans: 06/04/211920 [id number] Interpreted by: JOSE D BUCKNER MD Electronically signed by: JOSE D BUCKNER MD 06/04/211920 Departure Communication (Admissions) Time/Spoke to Admitting Phy: 19:[address] Pat. Will admit to ICU. Hospitalist will be putting bridge orders. Relayed info for surgery recs of AM small bowel follow through Time/Spoke to Consulting Phy: 19:32 Surgery consult: Dr Glass - TRAVIS green, AM small bowel follow through Impression Primary Impression: Small bowel obstruction Additional Impressions: Acute hyperglycemia Dehydration Elevated troponin Atrial fibrillation Qualified Codes: I48.20 - Chronic atrial fibrillation, unspecified Disposition: 30 STILL A PATIENT Condition: Critical Admissions Decision to Admit Reason: Admit from ER (General) Decision to Admit/Date: Jun 04, 2021 Time/Decision to Admit Time: 18:30 (But awaited all imaging and labs to come back prior to calling hospitlaist ) Transfer Transfer Reason: Exceeds level of care Departure-Patient Inst. Referrals: [facility] [employer] (PCP/Family) Primary Care Physician EDI ONEAL MD Jun 04, 2021 17:01
[2021-06-04] MEDS ORDERED: ONDANSETRON 4 MG/2 ML (SDV) Z0FRAN IVP ONE (17:30)
[2021-06-04] MEDS: NS IV 1000 ML 1,000 ML IV SCH ×2 (17:31→18:22)
[2021-06-04 17:32] LABS: BASOPHILS % (AUTO) 1 % (0-10); EOSINOPHILS % (AUTO) 0 % (0-10); HEMATOCRIT 46 % (35-52); HEMOGLOBIN 15.1 g/dL (11.5-16.0); LYMPHOCYTES # (AUTO) 0.8 10^3/uL (1.0-4.0); LYMPHOCYTES % (AUTO) 10 % (12-44); MEAN CORPUSCULAR HEMOGLOBIN 29 pg (25-34); MEAN CORPUSCULAR HGB CONC 33 g/dL (32-36); MEAN CORPUSCULAR VOLUME 90 fL (80-99); MEAN PLATELET VOLUME 13.2 fL (9.0-12.2); MONOCYTES # (AUTO) 0.3 10^3/uL (0.0-1.0); MONOCYTES % (AUTO) 4 % (0-12); NEUTROPHILS # (AUTO) 6.6 10^3/uL (1.8-7.8); NEUTROPHILS % (AUTO) 85 % (42-75); PLATELET COUNT 232 10^3/uL (130-400); WHITE BLOOD COUNT 7.7 10^3/uL (4.3-11.0)
[2021-06-04] MEDS ORDERED: NS 100 ML (IVPB) BAG IV ONE (17:45)
[2021-06-04] MEDS ORDERED: HOLD METFORMIN - RECEIVED CONTRAST 20 ML VIAL IV SCH (17:45)
[2021-06-04] MEDS ORDERED: CATHETER FLUSH 10 ML SYR IV PRN (17:45)
[2021-06-04] MEDS ORDERED: IOHEXOL 350 MG/ML 150 ML (OMNIPAQUE 350) VIAL IV ONE (17:45)
[2021-06-04 17:55] LABS: CREATININE SERUM 1.14 MG/DL (0.60-1.30); POTASSIUM 5.5 MMOL/L (3.6-5.0)
[2021-06-04 17:57] LABS: BILIRUBIN,TOTAL 0.3 MG/DL (0.1-1.0); CALCIUM 9.3 MG/DL (8.5-10.1); TOTAL PROTEIN 7.9 GM/DL (6.4-8.2)
[2021-06-04] MEDS ORDERED: inSUlin (REGULAR) HUMAN 1 UNIT/0.01 ML (CHARGE PER UNIT) SC STA (17:57)
[2021-06-04] MEDS ORDERED: NS IV 1000 ML 1,000 ML IV SCH (18:15)
[2021-06-04] MEDS ORDERED: ASPIRIN 81 MG CHEW (CHILDREN'S ASA) PO ONE (18:15)
[2021-06-04] MEDS ORDERED: meTOproloL SUCCINATE 50 MG (TOPROL XL) TAB PO SCH (18:15)
[2021-06-04] MEDS ORDERED: NS IV 1000 ML 1,000 ML ONE (18:17)
[2021-06-04 18:33] LABS: BILIRUBIN,URINE NEGATIVE (NEGATIVE); CLARITY,URINE CLEAR; COLOR,URINE YELLOW; GLUCOSE, URINE (UA) TRACE (NEGATIVE); KETONES,URINE 1+ (NEGATIVE); LEUKOCYTE ESTERASE ,URINE NEGATIVE (NEGATIVE); NITRITE,URINE NEGATIVE (NEGATIVE); PROTEIN,URINE NEGATIVE (NEGATIVE)
[2021-06-04 18:49] LABS: BACTERIA,URINE TRACE /HPF; HYALINE CASTS, URINE RARE /LPF; SQUAMOUS EPITHELIAL CELL,UR 0-2 /HPF; WBC,URINE 0-2 /HPF
--- NOTE | 2021-06-04 19:13 | Diagnostic Imaging Report ---
Two-view chest is compared to prior study from June 15, 2019. INDICATION: Chest pain. FINDINGS: There is stable enlargement of the cardiac silhouette without current evidence of failure or edema. There are some chronic interstitial changes within the lungs, but no findings of new alveolar consolidation or pneumonia. There is no large effusion. There is no pneumothorax. There are multilevel degenerative features present throughout the spine. IMPRESSION: 1. Chronic interstitial changes within the lungs without findings of new pneumonia or evidence of edema. Dictated by: Dictated on workstation # [id number]
--- NOTE | 2021-06-04 19:23 | Diagnostic Imaging Report ---
PROCEDURE: CT abdomen and pelvis with contrast. TECHNIQUE: Multiple contiguous axial images were obtained through the abdomen and pelvis after administration of intravenous contrast. Auto Exposure Controls were utilized during the CT exam to meet ALARA standards for radiation dose reduction. All CT scans use one or more of the following dose optimizing techniques: automated exposure control, MA and/or KvP adjustment based on patient size and exam type or iterative reconstruction. INDICATION: Abdominal pain. COMPARISON: No prior studies are available for comparison. FINDINGS: Lung bases are clear. There is generalized low density throughout the liver, consistent with hepatic steatosis. No discrete liver mass is detected. Gallbladder is surgically absent. No biliary ductal dilatation is seen. Pancreas and spleen are unremarkable. No adrenal mass is detected. Right kidney contains a small cortical low-attenuation lesion in the upper pole measuring 16 mm and suggestive of a cyst. No hydronephrosis noted. Aorta is heavily calcified but nonaneurysmal. There appear to be some dilated and fluid-filled small bowel loops in the central abdomen. There is significant laxity to the anterior abdominal wall with diastasis of the rectus musculature. No definite focal abdominal wall defect is seen to suggest a ventral hernia. No bowel wall thickening is seen. There are normal-caliber small bowel loops distally and possibility of small bowel obstruction cannot be excluded. There is no free air. There is no free fluid or fluid collection. Bladder is decompressed by Grant catheter. Bony structures demonstrate compression deformity of T11 vertebral body which is near vertebra plana. There is also probable superior endplate fracture of L2. These could be chronic. There is no retropulsion. IMPRESSION: 1. Dilated small bowel loops with transition distally, concerning for small bowel obstruction. Small bowel study would be useful for further evaluation. No free air, free fluid or fluid collection is detected. 2. Probable chronic compression deformities involving T11 and L2. Dictated by: Dictated on workstation # [id number]
[2021-06-04] MEDS ORDERED: METOCLOPRAMIDE INJ 10 MG/2 ML (REGLAN) IVP STA (19:24)
[2021-06-04] MEDS ORDERED: NS IV 1000 ML 1,000 ML IV STA (19:28)
[2021-06-04 19:55] LABS: CALCIUM 8.1 MG/DL (8.5-10.1); CREATININE SERUM 1.01 MG/DL (0.60-1.30); POTASSIUM 4.8 MMOL/L (3.6-5.0)
[2021-06-04] MEDS ORDERED: HEParin 1000 UNIT/ML (10ML VIAL) FOR BOLUS IV STA (20:03)
[2021-06-04] MEDS ORDERED: NOREPINEPHRINE 8 MG/250 ML 250 ML IV ONE (20:03)
[2021-06-04 20:28] LABS: INR 0.9 (0.8-1.4); PROTHROMBIN TIME PATIENT 12.8 SEC (12.2-14.7)
[2021-06-04] MEDS ORDERED: diphenhydrAMINE 50 MG/ML INJ (BENADRYL) IVP PRN (21:30)
[2021-06-04] MEDS ORDERED: POTASSIUM CL 10MEQ/50ML IVPB 50 ML IV SCH (21:30)
[2021-06-04] MEDS ORDERED: ACETAMINOPHEN 650 MG SUPP (TYLENOL) PR PRN (21:30)
[2021-06-04] MEDS ORDERED: NALOXONE 0.4 MG/ML 1 ML (NARCAN) VIAL IV PRN (21:30)
[2021-06-04 22:11] LABS: POTASSIUM 5.8 MMOL/L (3.6-5.0)
[2021-06-04 22:13] LABS: CALCIUM 8.3 MG/DL (8.5-10.1)
--- NOTE | 2021-06-04 22:15 | Procedure/Intervention Note ---
Procedures/Interventions Lumen: triple Central Line Procedure: betadine prep, sterile drapes applied Position: internal jugular (R) Anesthesia: local Volume Anesthetic (ccs): 3 Complications: none Post Position: sutured, good blood return, position confirmed w/ CXR Called ICU by cook house laborer for help with IV access. Since patient has poor I V access with several diagnoses in the ICU we elected to go ahead and put in a central line. We placed a right internal jugular central line under ultrasound guidance without difficulty. Attempted left-sided nasogastric tube insertion due to diagnosis of small bowel obstruction per Dr. Glass's request but patient did not tolerate this so we aborted further attempts. KAT CHAMBERS APRN Jun 04, 2021 22:15
[2021-06-04 22:17] LABS: CREATININE SERUM 1.11 MG/DL (0.60-1.30)
[2021-06-04] MEDS ORDERED: 1/2 NS IV SOLUTION 1,000 ML IV ONE (22:22)
[2021-06-04] MEDS ORDERED: POTASSIUM CL 10MEQ/50ML IVPB 200 ML IV ONE (22:22)
--- NOTE | 2021-06-04 22:29 | Diagnostic Imaging Report ---
Portable chest COMPARISON to prior study from earlier in the same day. INDICATION: Central line placement. FINDINGS: A right internal jugular central line has been placed. This terminates within the distal SVC. There are no findings of a pneumothorax. Pulmonary interstitial prominence and heart size are unchanged from prior examination. There may be a trace left-sided effusion. There is no new alveolar consolidation IMPRESSION: 1. Interval placement of a new right internal jugular central line without pneumothorax. 2. Stable prominence of the pulmonary interstitial markings. 3. Possible trace left effusion. Dictated by: Dictated on workstation # [id number]
[2021-06-04] MEDS: 1/2 NS IV SOLUTION 1,000 ML IV SCH (22:38)
[2021-06-04] MEDS: ENOXAPARIN 100 MG/1 ML (LOVENOX) SYR SC SCH (23:44)
[2021-06-05] MEDS: dilTIAZem DRIP PRE-MIX 125 ML IV SCH ×2 (01:12→21:06)
[2021-06-05] MEDS: NS IV 1000 ML 1,000 ML IV SCH ×4 (01:13→21:06)
[2021-06-05] MEDS: D5 1/2 NS 1000 ML IV SOLUTION 1,000 ML IV SCH ×5 (01:19→22:59)
[2021-06-05 02:17] LABS: CREATININE SERUM 1.01 MG/DL (0.60-1.30)
[2021-06-05] MEDS: 1/2 NS IV SOLUTION 1,000 ML IV SCH ×6 (05:22→18:29)
[2021-06-05] MEDS: ONDANSETRON 4 MG/2 ML (SDV) Z0FRAN IV PRN ×3 (05:22→22:59)
--- NOTE | 2021-06-05 05:22 | History & Physical-Surgical ---
NATO CHANEY [birth year]/21521: History of Present Illness History of Present Illness Reason for visit/HPI CC: Abdominal pain, N/V/D HPI: 85 yo female w/ hx AFib, IDDM, CAD, HTN, neuropathy, asthma and COPD presented to [place] [facility] with abdominal pain, nausea, vomiting and diarrhea. Sx began yesterday evening. Pt vomited 4x. There was no blood in her emesis or stool. Pt was transported to [place] via ambulance. She reported CP and blurry vision yesterday evening as well. Her troponin was elevated at 1.17 and her pH was 7.24. EKG showed borderline ST elevation in lateral leads, as well as AFib and a possible old anteroseptal infarct. CT of abd and pelvis w/ contrast showed dilated small bowel loops consistent with small bowel obstruction. CXR showed chronic interstitial changes. A central line was placed last night. Attempts to place a NG tube were unsuccessful. Pt did not tolerate the procedure, and it was made difficult by previous nasal trauma. Pt had some nausea this morning, but has not vomited since being admitted to the ICU. Zofran relieves the nausea. Her abdominal pain has improved. Pt reports feeling SOB. RT has been contacted for breathing treatments. Her blood sugar remains elevated at 214; she is on an insulin drip. NPO currently; has not eaten or drank anything since prior to arrival, though she can't remember specifics. Her last bm was early yesterday. Pt reports 5/10 neck pain since last night. Pt's sock was hurting her left foot. Upon removal, the L foot was more purple in color and warmer than the R foot. She states that this pain and warmth happens daily with her neuropathy. Pt's R foot is slightly red, with a bandaged healing sore on her big toe. Date of Admission Jun 04, 2021 at 20:46 Date Seen by a Provider: Jun 05, 2021 Time Seen by a Provider: 05:30 I consulted on this patient on 06/05/21 05:22 Attending Physician Sheree Pat DO Admitting Physician Madeline Mercado Laundry Housekeeper Consult Allergies and Home Medications Allergies Coded Allergies: Penicillins (Verified Allergy, Unknown, 03/04/18) codeine (Verified Allergy, Unknown, 03/04/18) levofloxacin (Verified Allergy, Unknown, 03/04/18) meperidine (Verified Allergy, Unknown, 03/04/18) mirabegron (Verified Allergy, Unknown, 03/04/18) morphine (Verified Allergy, Unknown, 03/04/18) oxycodone (Verified Allergy, Unknown, 03/04/18) sitagliptin (Verified Allergy, Unknown, 03/04/18) Patient Home Medication List Acetaminophen (Acetaminophen) 325 Mg Tablet, 325 MG PO Q4H PRN for PAIN-MILD (1- 4), (Reported) Entered as Reported by: YOHANNES SUN on 06/28/20 1349 Albuterol Sulfate (Proair Hfa) 1 Puff Puff, 2 PUFF IH Q4H PRN for SHORTNESS OF BREATH, (Reported) Entered as Reported by: CINTHIA RUBIO on 03/04/18 1442 Alendronate Sodium (Alendronate Sodium) 70 Mg Tablet, 70 MG PO SUN, (Reported) Entered as Reported by: CINTHIA RUBIO on 03/04/18 1434 Amitriptyline HCl (Amitriptyline HCl) 25 Mg Tablet, 25 MG PO HS, (Reported) Entered as Reported by: CINTHIA RUBIO on 03/04/18 1434 Apixaban (Eliquis) 5 Mg Tablet, 5 MG PO BID, (Reported) Entered as Reported by: CINTHIA RUBIO on 03/04/18 1434 Aspirin (Aspirin EC) 81 Mg Tablet.dr, 81 MG PO DAILY, (Reported) Entered as Reported by: CINTHIA RUBIO on 03/04/18 1434 Benzonatate (Tessalon Perle) 100 Mg Capsule, 100 MG PO TID PRN for COUGH, (Reported) Entered as Reported by: CINTHIA RUBIO on 03/04/18 1442 Calcium Carbonate (Calcium Carbonate) 260 Mg Tablet, 260 MG PO DAILY, (Reported) Entered as Reported by: YOHANNES SUN on 06/28/20 1352 Fluticasone/Vilanterol (Breo Ellipta 100-25 Mcg INH) 1 Each Blst.w.dev, 1 PUFF INH DAILY, (Reported) Entered as Reported by: YOHANNES SUN on 06/28/20 1349 Gabapentin (Gabapentin) 100 Mg Capsule, 100 MG PO BID, (Reported) Entered as Reported by: YOHANNES SUN on 06/28/20 1349 Glimepiride (Glimepiride) 2 Mg Tablet, 2 MG PO DAILY, (Reported) Entered as Reported by: CINTHIA RUBIO on 03/04/18 1434 Hydrocodone/Ibuprofen (Hydrocodone-Ibuprofen 7.5-200) 1 Each Tablet, 1 EACH PO Q4HR PRN for PAIN-MODERATE (5-7) Prescribed by: SHEREE PAT on 07/06/20 0556 Insulin Degludec (Tresiba Flextouch U-100) 100 Unit/1 Ml Insuln.pen, 20 UNITS SC HS, (Reported) Entered as Reported by: YOHANNES SUN on 06/28/20 1349 Lisinopril (Lisinopril) 20 Mg Tablet, 20 MG PO BID, (Reported) Entered as Reported by: CINTHIA RUBIO on 03/04/18 1434 Loratadine (Loratadine) 10 Mg Tablet, 10 MG PO DAILY, (Reported) Entered as Reported by: CINTHIA RUBIO on 03/04/18 1434 Magnesium Oxide (Magnesium) 400 Mg Tablet, 400 MG PO DAILY, (Reported) Entered as Reported by: YOHANNES SUN on 06/28/20 1349 Metoprolol Succinate (Metoprolol Succinate) 50 Mg Tab.er.24h, 50 MG PO HS, (Reported) Entered as Reported by: CINTHIA RUBIO on 03/04/18 1434 Metoprolol Tartrate (Metoprolol Tartrate) 50 Mg Tablet, 50 MG PO BID Prescribed by: JEANETTE LAWSON on 07/10/20 1733 Montelukast Sodium (Montelukast Sodium) 10 Mg Tablet, 10 MG PO HS, (Reported) Entered as Reported by: YOHANNES SUN on 06/28/20 1349 Multivitamin (Multi-Vitamin Daily) 1 Each Tablet, 1 EACH PO DAILY, (Reported) Entered as Reported by: CINTHIA RUBIO on 03/04/18 1442 Nitroglycerin (Nitroglycerin) 0.4 Mg Tab.subl, 0.4 MG SL UD PRN for CHEST PAIN, (Reported) Entered as Reported by: YOHANNES SUN on 06/28/20 1349 Pantoprazole Sodium (Pantoprazole Sodium) 40 Mg Tablet.dr, 40 MG PO DAILY Prescribed by: SHEREE PAT on 07/06/20 0555 Rosuvastatin Calcium (Rosuvastatin Calcium) 20 Mg Tablet, 20 MG PO DAILY, (Reported) Entered as Reported by: CINTHIA RUBIO on 03/04/18 1434 Semaglutide (Ozempic) 0.25 Mg/0.2 Ml Pen.injctr, 0.5 MG SQ SUN, (Reported) Entered as Reported by: YOHANNES SUN on 06/28/20 1349 Spironolactone (Spironolactone) 25 Mg Tablet, 25 MG PO DAILY, (Reported) Entered as Reported by: YOHANNES SUN on 06/28/20 1349 Past Fylgvvk-Eozaga-Vbkvhd Hx Patient Social History Tobacco Use?: Yes Tobacco type used: Cigarettes Smoking Status: Former Smoker Smokeless Tobacco Frequency: Unknown if Ever Used Use of E-Cig and/or Vaping dev: Unable to obtain Substance use?: No Alcohol Use?: Yes Alcohol Frequency: Once in a while Pt feels they are or have been: Unable to obtain Immunizations Up To Date Date of Influenza Vaccine: Jan 25, 2021 Tetanus Booster (TDap): More Than 5 Years Hepatitis A: No Hepatitis B: Yes Date of Pneumonia Vaccine: Dec 12, 2017 Seasonal Allergies Seasonal Allergies: No Current Status status: No status: No Advance Directives: No Communicates: Verbally Primary Language: Luxembourgish Preferred Spoken Language: Luxembourgish Is interpretation needed?: No Implanted or Applied Medical D: None Past Medical History Surgeries: Abdominal (exploratory lap), Hysterectomy, Tubal Ligation Asthma, COPD Currently Using CPAP: No Currently Using BIPAP: No Coronary Artery Disease, Hypertension Neuropathy UTI-Chronic Arthritis, Chronic Back Pain Diabetes, Insulin dep Skin Did You Recieve Any Treatments: Yes What Type of Treatment Did You: Surgical Intervention Recent Skin Changes Blood Disorders: No Family Medical History Cardiovascular disease G8 BROTHER Completed stroke G8 SISTER Diabetes mellitus 19 MOTHER G8 BROTHER Fibromyalgia DAUGHTER Myocardial infarction 19 FATHER G8 BROTHER Review of Systems Constitutional: No chills, No fever; weakness (feels "stuck to the bed") EENTM: blurred vision (last night watching tv); No hearing loss Respiratory: No cough; short of breath Cardiovascular: chest pain (last night; not currently); No palpitations Gastrointestinal: No abdominal pain; diarrhea, nausea; No vomiting Genitourinary: decreased output; No dysuria Musculoskeletal: neck pain (muscular pain since last night), other (foot pain) Skin: dryness, hx of skin cancer (facial), other (R foot lesion, redness; L foot warm and purple coloration) Psychiatric/Neurological: Denies Headache, Denies Seizure; Other (Neuropathic pain in L foot this a.m.; foot warm and a purple color) Physical Exam Vital Signs Vital Signs - First Documented 06/04/21 17:20 Temp 35.7 Pulse 107 Resp 18 B/P (MAP) 105/68 (80) Pulse Ox 96 O2 Delivery Room Air Capillary Refill : Height, Weight, BMI Height: 5'63.00" Weight: 219lbs. 1.0oz. 99.953763re; 37.00 BMI Method: General Appearance: No Apparent Distress, WD/WN Eyes: Bilateral Eye Normal Inspection HEENT: PERRL/EOMI Neck: Normal Inspection, Tender Lateral (muscular neck pain) Respiratory: Lungs Clear, Normal Breath Sounds, No Respiratory Distress (feels SOB) Cardiovascular: Irregularly Irregular, Tachycardia Gastrointestinal: Abnormal Bowel Sounds (reduced), Distended; No Guarding; Tenderness (RLQ, LLQ) Extremity: Other (sock hurting L foot (neuropathic pain); Left foot warm w/ purple coloration) Neurologic/Psychiatric: Alert, Normal Mood/Affect Skin: Other (R foot redness, lesion on big toe; L foot purple discoloration and warm) Data Review Labs Laboratory Tests 06/04/21 17:10: White Blood Count 7.7, Red Blood Count 5.15H, Hemoglobin 15.1, Hematocrit 46, Mean Corpuscular Volume 90, Mean Corpuscular Hemoglobin 29, Mean Corpuscular Hemoglobin Concent 33, Red Cell Distribution Width 14.0, Platelet Count 232, Mean Platelet Volume 13.2H, Immature Granulocyte % (Auto) 1, Neutrophils (%) (Auto) 85H, Lymphocytes (%) (Auto) 10L, Monocytes (%) (Auto) 4, Eosinophils (%) (Auto) 0, Basophils (%) (Auto) 1, Neutrophils # (Auto) 6.6, Lymphocytes # (Auto) 0.8L, Monocytes # (Auto) 0.3, Eosinophils # (Auto) 0.0, Basophils # (Auto) 0.0, Immature Granulocyte # (Auto) 0.1, Prothrombin Time 12.8, INR Comment 0.9, Activated Partial Thromboplast Time 28, Sodium Level 132L, Potassium Level 5.5H, Chloride Level 93L, Carbon Dioxide Level 17L, Anion Gap 22H, Blood Urea Nitrogen 42H, Creatinine 1.14, Estimat Glomerular Filtration Rate 48, BUN/Creatinine Ratio 37, Glucose Level 406*H, Calcium Level 9.3, Corrected Calcium 9.3, Total Bilirubin 0.3, Aspartate Amino Transf (AST/SGOT) 30, Alanine Aminotransferase (ALT/SGPT) 32, Alkaline Phosphatase 140H, Troponin I 0.63*H, Total Protein 7.9, Albumin 4.0, Lipase 35 06/04/21 18:27: Urine Color YELLOW, Urine Clarity CLEAR, Urine pH 6.0, Urine Specific [place] 1.020, Urine Protein NEGATIVE, Urine Glucose (UA) TRACEH, Urine Ketones 1+H, Urine Nitrite NEGATIVE, Urine Bilirubin NEGATIVE, Urine Urobilinogen 0.2, Urine Leukocyte Esterase NEGATIVE, Urine RBC (Auto) NEGATIVE, Urine RBC NONE, Urine WBC 0-2, Urine Squamous Epithelial Cells 0-2, Urine Crystals NONE, Urine Bacteria TRACE, Urine Casts PRESENT, Urine Hyaline Casts RARE, Urine Mucus NEGATIVE, Urine Culture Indicated NO 06/04/21 18:55: Glucometer 274H 06/04/21 19:20: Sodium Level 135, Potassium Level 4.8, Chloride Level 98, Carbon Dioxide Level 16L, Anion Gap 21H, Blood Urea Nitrogen 37H, Creatinine 1.01, Estimat Glomerular Filtration Rate 55, BUN/Creatinine Ratio 37, Glucose Level 280H, Calcium Level 8.1L, Troponin I 1.17*H 06/04/21 19:40: Arterial Blood pH 7.24*L 06/04/21 21:16: Glucometer 300H 06/04/21 21:37: Sodium Level 132L, Potassium Level 5.8H, Chloride Level 102, Carbon Dioxide Level 15L, Anion Gap 15H, Blood Urea Nitrogen 36H, Creatinine 1.11, Estimat Glomerular Filtration Rate 49, BUN/Creatinine Ratio 32, Glucose Level 325H, Lactic Acid Level 1.68, Calcium Level 8.3L, Troponin I 1.236*H, Beta- Hydroxybutyrate (Chem panel) 2.67H 06/04/21 22:46: Glucometer 103 06/04/21 22:48: Glucometer 301H 06/04/21 23:51: Glucometer 298H 06/05/21 00:57: Glucometer 231H 06/05/21 01:58: Glucometer 244H 06/05/21 02:00: Sodium Level 132L, Potassium Level 5.0, Chloride Level 102, Carbon Dioxide Level 19L, Anion Gap 11, Blood Urea Nitrogen 34H, Creatinine 1.01, Estimat Glomerular Filtration Rate 55, BUN/Creatinine Ratio 34, Glucose Level 268H, Calcium Level 8.0L 06/05/21 03:00: Glucometer 235H 06/05/21 04:03: Glucometer 237H 06/05/21 05:10: Sodium Level 133L, Potassium Level 4.6, Chloride Level 103, Carbon Dioxide Level 20L, Anion Gap 10, Blood Urea Nitrogen 30H, Creatinine 0.96, Estimat Glomerular Filtration Rate 59, BUN/Creatinine Ratio 31, Glucose Level 237H, Calcium Level 8.2L, White Blood Count 8.9, Red Blood Count 4.34, Hemoglobin 12.8, Hematocrit 40, Mean Corpuscular Volume 93, Mean Corpuscular Hemoglobin 30, Mean Corpuscular Hemoglobin Concent 32, Red Cell Distribution Width 13.6, Platelet Count 204, Mean Platelet Volume 12.9H, Immature Granulocyte % (Auto) 0, Neutrophils (%) (Auto) 70, Lymphocytes (%) (Auto) 16, Monocytes (%) (Auto) 13H, Eosinophils (%) (Auto) 0, Basophils (%) (Auto) 0, Neutrophils # (Auto) 6.2, Lymphocytes # (Auto) 1.5, Monocytes # (Auto) 1.2H, Eosinophils # (Auto) 0.0, Basophils # (Auto) 0.0, Immature Granulocyte # (Auto) 0.0, Corrected Calcium 8.9, Phosphorus Level 3.1, Total Bilirubin 0.2, Aspartate Amino Transf (AST/SGOT) 30, Alanine Aminotransferase (ALT/SGPT) 26, Alkaline Phosphatase 94, Total Protein 6.0L, Albumin 3.1L, Triglycerides Level 161H, Cholesterol Level 106, LDL Cholesterol Direct 57, VLDL Cholesterol 32, HDL Cholesterol 27L, Beta-Hydroxybutyrate (Chem panel) 0.16 06/05/21 05:14: Glucometer 214H 06/05/21 06:10: Glucometer 239H Assessment/Plan Assessment/Plan Assessment/Plan Small bowel obstruction Hyperglycemia AFib NSTEMI SOB Anticoagulation (Lovenox and Heparin on 06/04) Neuropathy IVFs NPO Breathing treatments by RT Insulin drip Consult cardiology Zofran for nausea Small bowel follow through may be necessary Monitor lesion on R foot; as well as warmth/coloration L foot Monitor labs and vitals HETAL ARCHULETA 06/05/21 1259: Allergies and Home Medications Allergies Coded Allergies: Penicillins (Verified Allergy, Unknown, 03/04/18) codeine (Verified Allergy, Unknown, 03/04/18) levofloxacin (Verified Allergy, Unknown, 03/04/18) meperidine (Verified Allergy, Unknown, 03/04/18) mirabegron (Verified Allergy, Unknown, 03/04/18) morphine (Verified Allergy, Unknown, 03/04/18) oxycodone (Verified Allergy, Unknown, 03/04/18) sitagliptin (Verified Allergy, Unknown, 03/04/18) Patient Home Medication List Acetaminophen (Acetaminophen) 325 Mg Tablet, 325 MG PO Q4H PRN for PAIN-MILD (1- 4), (Reported) Entered as Reported by: YOHANNES SUN on 06/28/20 1349 Albuterol Sulfate (Proair Hfa) 1 Puff Puff, 2 PUFF IH Q4H PRN for SHORTNESS OF BREATH, (Reported) Entered as Reported by: CINTHIA RUBIO on 03/04/18 1442 Alendronate Sodium (Alendronate Sodium) 70 Mg Tablet, 70 MG PO SUN, (Reported) Entered as Reported by: CINTHIA RUBIO on 03/04/18 1434 Amitriptyline HCl (Amitriptyline HCl) 25 Mg Tablet, 25 MG PO HS, (Reported) Entered as Reported by: CINTHIA RUBIO on 03/04/18 1434 Apixaban (Eliquis) 5 Mg Tablet, 5 MG PO BID, (Reported) Entered as Reported by: CINTHIA RUBIO on 03/04/18 1434 Aspirin (Aspirin EC) 81 Mg Tablet.dr, 81 MG PO DAILY, (Reported) Entered as Reported by: CINTHIA RUBIO on 03/04/18 1434 Benzonatate (Tessalon Perle) 100 Mg Capsule, 100 MG PO TID PRN for COUGH, (Reported) Entered as Reported by: CINTHIA RUBIO on 03/04/18 1442 Calcium Carbonate (Calcium Carbonate) 260 Mg Tablet, 260 MG PO DAILY, (Reported) Entered as Reported by: YOHANNES SUN on 06/28/20 1352 Fluticasone/Vilanterol (Breo Ellipta 100-25 Mcg INH) 1 Each Blst.w.dev, 1 PUFF INH DAILY, (Reported) Entered as Reported by: YOHANNES SUN on 06/28/20 1349 Gabapentin (Gabapentin) 100 Mg Capsule, 100 MG PO BID, (Reported) Entered as Reported by: YOHANNES SUN on 06/28/20 1349 Glimepiride (Glimepiride) 2 Mg Tablet, 2 MG PO DAILY, (Reported) Entered as Reported by: CINTHIA RUBIO on 03/04/18 1434 Hydrocodone/Ibuprofen (Hydrocodone-Ibuprofen 7.5-200) 1 Each Tablet, 1 EACH PO Q4HR PRN for PAIN-MODERATE (5-7) Prescribed by: SHEREE PAT on 07/06/20 0556 Insulin Degludec (Tresiba Flextouch U-100) 100 Unit/1 Ml Insuln.pen, 20 UNITS SC HS, (Reported) Entered as Reported by: YOHANNES SUN on 06/28/20 1349 Lisinopril (Lisinopril) 20 Mg Tablet, 20 MG PO BID, (Reported) Entered as Reported by: CINTHIA RUBIO on 03/04/18 1434 Loratadine (Loratadine) 10 Mg Tablet, 10 MG PO DAILY, (Reported) Entered as Reported by: CINTHIA RUBIO on 03/04/18 1434 Magnesium Oxide (Magnesium) 400 Mg Tablet, 400 MG PO DAILY, (Reported) Entered as Reported by: YOHANNES SUN on 06/28/20 1349 Metoprolol Succinate (Metoprolol Succinate) 50 Mg Tab.er.24h, 50 MG PO HS, (Repo rted) Entered as Reported by: CINTHIA RUBIO on 03/04/18 1434 Metoprolol Tartrate (Metoprolol Tartrate) 50 Mg Tablet, 50 MG PO BID Prescribed by: JEANETTE LAWSON on 07/10/20 1733 Montelukast Sodium (Montelukast Sodium) 10 Mg Tablet, 10 MG PO HS, (Reported) Entered as Reported by: YOHANNES SUN on 06/28/20 1349 Multivitamin (Multi-Vitamin Daily) 1 Each Tablet, 1 EACH PO DAILY, (Reported) Entered as Reported by: CINTHIA RUBIO on 03/04/18 1442 Nitroglycerin (Nitroglycerin) 0.4 Mg Tab.subl, 0.4 MG SL UD PRN for CHEST PAIN, (Reported) Entered as Reported by: YOHANNES SUN on 06/28/20 1349 Pantoprazole Sodium (Pantoprazole Sodium) 40 Mg Tablet.dr, 40 MG PO DAILY Prescribed by: SHEREE PAT on 07/06/20 0555 Rosuvastatin Calcium (Rosuvastatin Calcium) 20 Mg Tablet, 20 MG PO DAILY, (Reported) Entered as Reported by: CINTHIA RUBIO on 03/04/18 1434 Semaglutide (Ozempic) 0.25 Mg/0.2 Ml Pen.injctr, 0.5 MG SQ SUN, (Reported) Entered as Reported by: YOHANNES SUN on 06/28/20 1349 Spironolactone (Spironolactone) 25 Mg Tablet, 25 MG PO DAILY, (Reported) Entered as Reported by: YOHANNES SUN on 06/28/20 1349 Past Conclmt-Dnxxjw-Vvllbw Hx Family Medical History Cardiovascular disease G8 BROTHER Completed stroke G8 SISTER Diabetes mellitus 19 MOTHER G8 BROTHER Fibromyalgia DAUGHTER Myocardial infarction 19 FATHER G8 BROTHER RITUNATO Jun 05, 2021 05:22 HETAL ARCHULETA Jun 05, 2021 12:59
[2021-06-05 05:33] LABS: BASOPHILS % (AUTO) 0 % (0-10); EOSINOPHILS % (AUTO) 0 % (0-10); HEMATOCRIT 40 % (35-52); HEMOGLOBIN 12.8 g/dL (11.5-16.0); LYMPHOCYTES # (AUTO) 1.5 10^3/uL (1.0-4.0); LYMPHOCYTES % (AUTO) 16 % (12-44); MEAN CORPUSCULAR HEMOGLOBIN 30 pg (25-34); MEAN CORPUSCULAR HGB CONC 32 g/dL (32-36); MEAN CORPUSCULAR VOLUME 93 fL (80-99); MEAN PLATELET VOLUME 12.9 fL (9.0-12.2); MONOCYTES # (AUTO) 1.2 10^3/uL (0.0-1.0); MONOCYTES % (AUTO) 13 % (0-12); NEUTROPHILS # (AUTO) 6.2 10^3/uL (1.8-7.8); NEUTROPHILS % (AUTO) 70 % (42-75); PLATELET COUNT 204 10^3/uL (130-400); WHITE BLOOD COUNT 8.9 10^3/uL (4.3-11.0)
[2021-06-05 05:43] LABS: ALBUMIN 3.1 GM/DL (3.2-4.5); POTASSIUM 4.6 MMOL/L (3.6-5.0)
[2021-06-05 05:44] LABS: CALCIUM 8.2 MG/DL (8.5-10.1)
[2021-06-05 05:47] LABS: BILIRUBIN,TOTAL 0.2 MG/DL (0.1-1.0)
[2021-06-05 05:49] LABS: CREATININE SERUM 0.96 MG/DL (0.60-1.30); PHOSPHORUS 3.1 MG/DL (2.3-4.7)
[2021-06-05] MEDS: POTASSIUM CL 10MEQ/50ML IVPB 50 ML IV SCH (05:59)
[2021-06-05] MEDS: KCL 20 MEQ TAB (K-DUR) PO SCH (06:00)
[2021-06-05] MEDS: MAGNESIUM 1 GM/100 ML IVPB 100 ML IV SCH (06:00)
[2021-06-05] MEDS: RT-ALBUTEROL/IPRATROPIUM 3 ML (DUONEB) VIAL INH SCH ×5 (06:26→22:40)
[2021-06-05] MEDS: PANTOPRAZOLE 40 MG (PROTONIX) VIAL IV SCH (08:12)
[2021-06-05] MEDS: ENOXAPARIN 100 MG/1 ML (LOVENOX) SYR SC SCH ×2 (08:12→21:06)
[2021-06-05] MEDS ORDERED: DIATRIZOATE MEGLUM/SODIUM 37% 120 ML (GASTROGRAFIN) PO ONE (10:00)
[2021-06-05 10:57] LABS: CALCIUM 7.8 MG/DL (8.5-10.1); CREATININE SERUM 0.9 MG/DL (0.60-1.30); POTASSIUM 3.8 MMOL/L (3.6-5.0)
--- NOTE | 2021-06-05 11:17 | Tele-ICU Consult ---
History of Present Illness History of Present Illness Date Seen by Provider: Jun 05, 2021 Time Seen by Provider: 11:17 Date of Admission Allergies and Home Medications Allergies Coded Allergies: Penicillins (Verified Allergy, Unknown, 03/04/18) codeine (Verified Allergy, Unknown, 03/04/18) levofloxacin (Verified Allergy, Unknown, 03/04/18) meperidine (Verified Allergy, Unknown, 03/04/18) mirabegron (Verified Allergy, Unknown, 03/04/18) morphine (Verified Allergy, Unknown, 03/04/18) oxycodone (Verified Allergy, Unknown, 03/04/18) sitagliptin (Verified Allergy, Unknown, 03/04/18) Home Medications Acetaminophen 325 Mg Tablet, 325 MG PO Q4H PRN for PAIN-MILD (1-4), (Reported) Albuterol Sulfate 1 Puff Puff, 2 PUFF IH Q4H PRN for SHORTNESS OF BREATH, (Reported) Alendronate Sodium 70 Mg Tablet, 70 MG PO SUN, (Reported) Amitriptyline HCl 25 Mg Tablet, 25 MG PO HS, (Reported) Apixaban 5 Mg Tablet, 5 MG PO BID, (Reported) Aspirin 81 Mg Tablet.dr, 81 MG PO DAILY, (Reported) Benzonatate 100 Mg Capsule, 100 MG PO TID PRN for COUGH, (Reported) Calcium Carbonate 260 Mg Tablet, 260 MG PO DAILY, (Reported) Fluticasone/Vilanterol 1 Each Blst.w.dev, 1 PUFF INH DAILY, (Reported) Gabapentin 100 Mg Capsule, 100 MG PO BID, (Reported) Glimepiride 2 Mg Tablet, 2 MG PO DAILY, (Reported) Hydrocodone/Ibuprofen 1 Each Tablet, 1 EACH PO Q4HR PRN for PAIN-MODERATE (5-7) Prescribed by: MARK PAT on 07/06/20 0556 Insulin Degludec 100 Unit/1 Ml Insuln.pen, 20 UNITS SC HS, (Reported) Lisinopril 20 Mg Tablet, 20 MG PO BID, (Reported) Loratadine 10 Mg Tablet, 10 MG PO DAILY, (Reported) Magnesium Oxide 400 Mg Tablet, 400 MG PO DAILY, (Reported) Metoprolol Succinate 50 Mg Tab.er.24h, 50 MG PO HS, (Reported) Metoprolol Tartrate 50 Mg Tablet, 50 MG PO BID Prescribed by: JEANETTE LAWSON on 07/10/20 1733 Montelukast Sodium 10 Mg Tablet, 10 MG PO HS, (Reported) Multivitamin 1 Each Tablet, 1 EACH PO DAILY, (Reported) Nitroglycerin 0.4 Mg Tab.subl, 0.4 MG SL UD PRN for CHEST PAIN, (Reported) Pantoprazole Sodium 40 Mg Tablet.dr, 40 MG PO DAILY Prescribed by: MARK PAT on 07/06/20 0555 Rosuvastatin Calcium 20 Mg Tablet, 20 MG PO DAILY, (Reported) Semaglutide 0.25 Mg/0.2 Ml Pen.injctr, 0.5 MG SQ SUN, (Reported) Spironolactone 25 Mg Tablet, 25 MG PO DAILY, (Reported) Past Medical/Social/Family Hx Patient Social History Tobacco Use?: Yes Tobacco type used: Cigarettes Smoking Status: Former Smoker Smokeless Tobacco Frequency: Unknown if Ever Used Use of E-Cig and/or Vaping dev: Unable to obtain Substance use?: No Alcohol Use?: Yes Alcohol Frequency: Once in a while Pt stated abuse/neglect: Unable to obtain Immunizations Up To Date Influenza Vaccine Up-to-Date: Yes; Up-to-Date Tetanus Booster (TDap): More Than 5 Years Hepatitis A: No Hepatitis B: Yes TB Skin Test: Negative Date of Pneumonia Vaccine: Dec 12, 2017 Current Status status: No status: No Advance Directives: No Communicates: Verbally Primary Language: Ghanaian Preferred Spoken Language: Ghanaian Is interpretation needed?: No Implanted or Applied Medical D: None Review of Systems Constitutional: see HPI Focused Exam Lactate Level 06/04/21 21:37: Lactic Acid Level 1.68 Height, Weight, BMI Height: 5'63.00" Weight: 219lbs. 1.0oz. 99.633538ti; 37.00 BMI Method: Exam Exam Patient acknowledged, consented, and participated in this virtual visit which was conducted using real time audio/video Vital Signs Date Time Temp Pulse Resp B/P (MAP) Pulse Ox O2 Delivery O2 Flow Rate FiO2 06/05/21 11:00 100 35 148/93 94 Nasal Cannula 2.00 06/05/21 10:44 99 Nasal Cannula 2.00 06/05/21 10:00 107 19 144/90 100 Nasal Cannula 2.00 06/05/21 09:00 105 27 141/75 100 Nasal Cannula 2.00 06/05/21 08:00 100 Nasal Cannula 2.00 06/05/21 08:00 98 139/73 100 Nasal Cannula 2.00 06/05/21 07:37 37.1 06/05/21 07:00 93 131/76 97 Nasal Cannula 2.00 06/05/21 07:00 101 06/05/21 06:27 100 Nasal Cannula 2.00 06/05/21 06:00 104 16 113/72 91 Nasal Cannula 2.00 06/05/21 05:00 93 22 109/79 92 Nasal Cannula 2.00 06/05/21 04:00 36.6 06/05/21 04:00 100 Nasal Cannula 2.00 06/05/21 04:00 93 136/84 99 Nasal Cannula 2.00 06/05/21 03:00 86 118/79 100 Nasal Cannula 2.00 06/05/21 02:00 92 140/72 100 Nasal Cannula 2.00 06/05/21 01:00 92 17 149/76 94 Nasal Cannula 2.00 06/05/21 01:00 92 06/05/21 00:00 100 Nasal Cannula 2.00 06/05/21 00:00 84 12 152/77 99 Nasal Cannula 2.00 06/04/21 23:00 89 150/83 93 Nasal Cannula 2.00 06/04/21 22:30 96 146/80 99 Nasal Cannula 2.00 06/04/21 22:15 106 16 144/72 99 Nasal Cannula 2.00 06/04/21 22:05 94 16 95 Nasal Cannula 2.00 06/04/21 22:00 90 162/96 Room Air 06/04/21 21:45 92 24 123/104 88 Room Air 06/04/21 21:35 91 8 113/101 93 Room Air 06/04/21 21:30 36.7 06/04/21 21:30 Nasal Cannula 2.00 06/04/21 21:15 104 18 126/73 91 Room Air 06/04/21 21:11 114 06/04/21 21:10 104 18 134/102 98 Room Air 06/04/21 20:25 99 22 96/75 93 Room Air 06/04/21 20:10 98 62/45 06/04/21 17:20 35.7 107 18 105/68 (80) 96 Room Air l I & O 06/05/21 07:00 Intake Total 750 ml Output Total 550 ml Balance 200 ml Height & Weight Height: 5'63.00" Weight: 219lbs. 1.0oz. 99.075297ph; 37.00 BMI Method: General Appearance: No Apparent Distress, WD/WN HEENT: PERRL/EOMI Neck: Normal Inspection, Tender Lateral (muscular neck pain) Respiratory: Lungs Clear, Normal Breath Sounds, No Respiratory Distress (feels SOB) Cardiovascular: Irregularly Irregular, Tachycardia Gastrointestinal: normal bowel sounds, soft, distended (mild), guarding Extremity: Other (sock hurting L foot (neuropathic pain); Left foot warm w/ purple coloration) Neurologic/Psychiatric: Alert, Normal Mood/Affect Skin: Other (R foot redness, lesion on big toe; L foot purple discoloration and warm) Results Lab Laboratory Tests 06/04/21 17:10 06/04/21 19:20 06/04/21 21:37 06/05/21 02:00 06/05/21 05:10 06/05/21 10:30 Assessment/Plan Assessment/Plan (Tele-ICU Physician , consultation) Available chart/ vitals / labs / Images reviewed H&P is from ER notes Patient's information available about PMH, Shx, Fhx allergy reviewed in EMR. ROS as per chart and RN report Now in ICU, hemodynamically stable Video assessment done using teleICU camera, rest of exam as per RN Discussed with RN. Consultants: Hospital course: (05/15/21) 85yr old female admitted with SBO, CP with elevated troponin, hyperglycemia, afib rvr A/P DKA- *Insulin drip continue to monitor for resolution of acidosis, AG and electrolytes. Continue hydration. *Tx Gastroparesis A fib - RVR - rate controled - AC: fill fose lovenox ( was on eliquis at home ) SBO - as per Sx - refused NG Mild hypoxia - on 2 l Lines : right IJ 06/04 (Central Line Necessity Reviewed) Grant: OG: Nutrition: Analgesia: Anxiety/ delirium VTE Prophylaxis: gita 100 bid Stress Ulcer Prophylaxis: ppi Plans in collaboration with bedside consultants and IM MDs. Discussed with RN to reach out if any questions or concerns A total of 32 minutes of critical care time was devoted to this patient today, required to treat and/or prevent further deterioration of critical care condition ( as above ) . ADALGISA CROCKETT MD Jun 05, 2021 11:17
--- NOTE | 2021-06-05 12:17 | Consultation - Surgery ---
History of Present Illness History of Present Illness Patient Consulted On(anthony/time) 06/05/21 12:12 Date Seen by Provider: Jun 05, 2021 Time Seen by Provider: 08:00 History of Present Illness Consult requested by Dr. Pat for small bowel obstruction. Patient is a 85-year-old female who yesterday evening having abdominal pain slight distention nausea vomiting. Patient states that she was having cramping from abdominal pain. No radiation of pain. Moderate intensity. Tried to fluctuated in intensity. Patient not passing any flatus. Patient had CT scan which demonstrated Dilated small bowel loops with transition distally, concerning for small bowel obstruction. No free air, free fluid or fluid collection is detected. Probable chronic compression deformities involving T11 and L2. And attempt of NG tube placement patient did not tolerate. Patient refusing NG tube at this time. She is feeling a little bit better she states. No flatus or bowel movement. Allergies and Home Medications Allergies Coded Allergies: Penicillins (Verified Allergy, Unknown, 03/04/18) codeine (Verified Allergy, Unknown, 03/04/18) levofloxacin (Verified Allergy, Unknown, 03/04/18) meperidine (Verified Allergy, Unknown, 03/04/18) mirabegron (Verified Allergy, Unknown, 03/04/18) morphine (Verified Allergy, Unknown, 03/04/18) oxycodone (Verified Allergy, Unknown, 03/04/18) sitagliptin (Verified Allergy, Unknown, 03/04/18) Patient Home Medication List Home Medication List Reviewed: Yes Acetaminophen (Acetaminophen) 325 Mg Tablet, 325 MG PO Q4H PRN for PAIN-MILD (1- 4), (Reported) Entered as Reported by: YOHANNES SUN on 06/28/20 1349 Albuterol Sulfate (Proair Hfa) 1 Puff Puff, 2 PUFF IH Q4H PRN for SHORTNESS OF BREATH, (Reported) Entered as Reported by: CINTHIA RUBIO on 03/04/18 1442 Alendronate Sodium (Alendronate Sodium) 70 Mg Tablet, 70 MG PO SUN, (Reported) Entered as Reported by: CINTHIA RUBIO on 03/04/18 1434 Amitriptyline HCl (Amitriptyline HCl) 25 Mg Tablet, 25 MG PO HS, (Reported) Entered as Reported by: CINTHIA RUBIO on 03/04/18 1434 Apixaban (Eliquis) 5 Mg Tablet, 5 MG PO BID, (Reported) Entered as Reported by: CINTHIA RUBIO on 03/04/18 1434 Aspirin (Aspirin EC) 81 Mg Tablet.dr, 81 MG PO DAILY, (Reported) Entered as Reported by: CINTHIA RUBIO on 03/04/18 1434 Benzonatate (Tessalon Perle) 100 Mg Capsule, 100 MG PO TID PRN for COUGH, (Reported) Entered as Reported by: CINTHIA RUBIO on 03/04/18 1442 Calcium Carbonate (Calcium Carbonate) 260 Mg Tablet, 260 MG PO DAILY, (Reported) Entered as Reported by: YOHANNES SUN on 06/28/20 1352 Fluticasone/Vilanterol (Breo Ellipta 100-25 Mcg INH) 1 Each Blst.w.dev, 1 PUFF INH DAILY, (Reported) Entered as Reported by: YOHANNES SUN on 06/28/20 1349 Gabapentin (Gabapentin) 100 Mg Capsule, 100 MG PO BID, (Reported) Entered as Reported by: YOHANNES SUN on 06/28/20 1349 Glimepiride (Glimepiride) 2 Mg Tablet, 2 MG PO DAILY, (Reported) Entered as Reported by: CINTHIA RUBIO on 03/04/18 1434 Hydrocodone/Ibuprofen (Hydrocodone-Ibuprofen 7.5-200) 1 Each Tablet, 1 EACH PO Q4HR PRN for PAIN-MODERATE (5-7) Prescribed by: MARK PAT on 07/06/20 0556 Insulin Degludec (Tresiba Flextouch U-100) 100 Unit/1 Ml Insuln.pen, 20 UNITS SC HS, (Reported) Entered as Reported by: YOHANNES SUN on 06/28/20 1349 Lisinopril (Lisinopril) 20 Mg Tablet, 20 MG PO BID, (Reported) Entered as Reported by: CINTHIA RUBIO on 03/04/18 1434 Loratadine (Loratadine) 10 Mg Tablet, 10 MG PO DAILY, (Reported) Entered as Reported by: CINTHIA RUBIO on 03/04/18 1434 Magnesium Oxide (Magnesium) 400 Mg Tablet, 400 MG PO DAILY, (Reported) Entered as Reported by: YOHANNES SUN on 06/28/20 1349 Metoprolol Succinate (Metoprolol Succinate) 50 Mg Tab.er.24h, 50 MG PO HS, (Reported) Entered as Reported by: CINTHIA RUBIO on 03/04/18 1434 Metoprolol Tartrate (Metoprolol Tartrate) 50 Mg Tablet, 50 MG PO BID Prescribed by: JEANETTE LAWSON on 07/10/20 1733 Montelukast Sodium (Montelukast Sodium) 10 Mg Tablet, 10 MG PO HS, (Reported) Entered as Reported by: YOHANNES SUN on 06/28/20 1349 Multivitamin (Multi-Vitamin Daily) 1 Each Tablet, 1 EACH PO DAILY, (Reported) Entered as Reported by: CINTHIA RUBIO on 03/04/18 1442 Nitroglycerin (Nitroglycerin) 0.4 Mg Tab.subl, 0.4 MG SL UD PRN for CHEST PAIN, (Reported) Entered as Reported by: YOHANNES SUN on 06/28/20 1349 Pantoprazole Sodium (Pantoprazole Sodium) 40 Mg Tablet.dr, 40 MG PO DAILY Prescribed by: MARK PAT on 07/06/20 0555 Rosuvastatin Calcium (Rosuvastatin Calcium) 20 Mg Tablet, 20 MG PO DAILY, (Reported) Entered as Reported by: CINTHIA RUBIO on 03/04/18 1434 Semaglutide (Ozempic) 0.25 Mg/0.2 Ml Pen.injctr, 0.5 MG SQ SUN, (Reported) Entered as Reported by: YOHANNES SUN on 06/28/20 1349 Spironolactone (Spironolactone) 25 Mg Tablet, 25 MG PO DAILY, (Reported) Entered as Reported by: YOHANNES SUN on 06/28/20 1349 Past Vpzqoza-Xbwoaf-Uppqct Hx Patient Social History Smoking Status: Former Smoker Former Smoker, Quit: Jul 22, 1992 Type Used: Cigarettes 2nd Hand Smoke Exposure: No Recent Hopitalizations: No Alcohol Use?: Yes Have you traveled recently?: No Immunizations Up To Date Tetanus Booster (TDap): Unknown Date of Pneumonia Vaccine: Dec 12, 2017 Date of Influenza Vaccine: Jan 25, 2021 Seasonal Allergies Seasonal Allergies: No Surgeries History of Surgeries: Yes (Exploratory Lap) Surgeries: Abdominal (exploratory lap), Hysterectomy, Tubal Ligation Respiratory History of Respiratory Disorde: Yes Respiratory Disorders: Asthma, COPD Cardiovascular History of Cardiac Disorders: Yes Cardiac Disorders: Coronary Artery Disease, Hypertension Neurological History of Neurological Disord: Yes Neurological Disorders: Neuropathy Genitourinary History of Genitourinary Disor: Yes (INCONT) Genitourinary Disorders: UTI-Chronic Gastrointestinal History of Gastrointestinal Di: No Musculoskeletal History of Musculoskeletal Dis: Yes (STENOSIS) Musculoskeletal Disorders: Arthritis, Chronic Back Pain Endocrine History of Endocrine Disorders: Yes Endocrine Disorders: Diabetes, Insulin dep HEENT History of HEENT Disorders: No Cancer History of Cancer: Yes Cancer: Skin Psychosocial History of Psychiatric Problem: No Integumentary History of Skin or Integumenta: Yes (Redness R foot and drainage between 4th and 5th R toe) Skin/Integumentary Disorders: Recent Skin Changes Blood Transfusions History of Blood Disorders: No Reviewed Nursing Assessment Reviewed/Agree w Nursing PMH: Yes Family Medical History Significant Family History: No Pertinent Family Hx Family Medial History: Cardiovascular disease G8 BROTHER Completed stroke G8 SISTER Diabetes mellitus 19 MOTHER G8 BROTHER Fibromyalgia DAUGHTER Myocardial infarction 19 FATHER G8 BROTHER Review of Systems-General Constitutional: weakness EENTM: No blurred vision, No double vision Respiratory: No cough, No dyspnea on exertion, No short of breath Cardiovascular: No chest pain, No palpitations Gastrointestinal: abdominal pain, diarrhea, nausea, vomiting Genitourinary: No decreased output, No discharge Musculoskeletal: No back pain, No joint pain Skin: No change in color, No change in hair/nails Psychiatric/Neurological: Denies Anxiety, Denies Depressed, Denies Emotional Problems All Other Systems Reviewed Negative Unless Noted: Yes (Negative excepted noted.) Physical Exam-General Problems Physical Exam Vital Signs Vital Signs - First Documented 06/04/21 17:20 Temp 35.7 Pulse 107 Resp 18 B/P (MAP) 105/68 (80) Pulse Ox 96 O2 Delivery Room Air Capillary Refill : General Appearance: WD/WN, no apparent distress HEENT: PERRL/EOMI, normal ENT inspection Neck: non-tender, supple Respiratory: chest non-tender, no respiratory distress, no accessory muscle use Cardiovascular: regular rate, rhythm, no edema Gastrointestinal: distended (minimally), tenderness (mild diffuse) Rectal: deferred Back: normal inspection, no vertebral tenderness Extremities: non-tender, other (slight discoloration left foot with minimal erythema) Neurologic/Psychiatric: alert, normal mood/affect, oriented x 3 Skin: warm/dry (slight erythema left foot) Lymphatic: no adenopathy Data Review Labs Laboratory Tests 06/04/21 17:10: White Blood Count 7.7, Red Blood Count 5.15H, Hemoglobin 15.1, Hematocrit 46, Mean Corpuscular Volume 90, Mean Corpuscular Hemoglobin 29, Mean Corpuscular Hemoglobin Concent 33, Red Cell Distribution Width 14.0, Platelet Count 232, Mean Platelet Volume 13.2H, Immature Granulocyte % (Auto) 1, Neutrophils (%) (Auto) 85H, Lymphocytes (%) (Auto) 10L, Monocytes (%) (Auto) 4, Eosinophils (%) (Auto) 0, Basophils (%) (Auto) 1, Neutrophils # (Auto) 6.6, Lymphocytes # (Auto) 0.8L, Monocytes # (Auto) 0.3, Eosinophils # (Auto) 0.0, Basophils # (Auto) 0.0, Immature Granulocyte # (Auto) 0.1, Prothrombin Time 12.8, INR Comment 0.9, Activated Partial Thromboplast Time 28, Sodium Level 132L, Potassium Level 5.5H, Chloride Level 93L, Carbon Dioxide Level 17L, Anion Gap 22H, Blood Urea Nitrogen 42H, Creatinine 1.14, Estimat Glomerular Filtration Rate 48, BUN/Creatinine Ratio 37, Glucose Level 406*H, Calcium Level 9.3, Corrected Calcium 9.3, Total Bilirubin 0.3, Aspartate Amino Transf (AST/SGOT) 30, Alanine Aminotransferase (ALT/SGPT) 32, Alkaline Phosphatase 140H, Troponin I 0.63*H, Total Protein 7.9, Albumin 4.0, Lipase 35 06/04/21 18:27: Urine Color YELLOW, Urine Clarity CLEAR, Urine pH 6.0, Urine Specific [place] 1.020, Urine Protein NEGATIVE, Urine Glucose (UA) TRACEH, Urine Ketones 1+H, Urine Nitrite NEGATIVE, Urine Bilirubin NEGATIVE, Urine Urobilinogen 0.2, Urine Leukocyte Esterase NEGATIVE, Urine RBC (Auto) NEGATIVE, Urine RBC NONE, Urine WBC 0-2, Urine Squamous Epithelial Cells 0-2, Urine Crystals NONE, Urine Bacteria TRACE, Urine Casts PRESENT, Urine Hyaline Casts RARE, Urine Mucus NEGATIVE, Urine Culture Indicated NO 06/04/21 18:55: Glucometer 274H 06/04/21 19:20: Sodium Level 135, Potassium Level 4.8, Chloride Level 98, Carbon Dioxide Level 16L, Anion Gap 21H, Blood Urea Nitrogen 37H, Creatinine 1.01, Estimat Glomerular Filtration Rate 55, BUN/Creatinine Ratio 37, Glucose Level 280H, Calcium Level 8.1L, Troponin I 1.17*H 06/04/21 19:40: Arterial Blood pH 7.24*L 06/04/21 21:16: Glucometer 300H 06/04/21 21:37: Sodium Level 132L, Potassium Level 5.8H, Chloride Level 102, Carbon Dioxide Level 15L, Anion Gap 15H, Blood Urea Nitrogen 36H, Creatinine 1.11, Estimat Glomerular Filtration Rate 49, BUN/Creatinine Ratio 32, Glucose Level 325H, Lactic Acid Level 1.68, Calcium Level 8.3L, Troponin I 1.236*H, Beta- Hydroxybutyrate (Chem panel) 2.67H 06/04/21 22:46: Glucometer 103 06/04/21 22:48: Glucometer 301H 06/04/21 23:51: Glucometer 298H 06/05/21 00:57: Glucometer 231H 06/05/21 01:58: Glucometer 244H 06/05/21 02:00: Sodium Level 132L, Potassium Level 5.0, Chloride Level 102, Carbon Dioxide Level 19L, Anion Gap 11, Blood Urea Nitrogen 34H, Creatinine 1.01, Estimat Glomerular Filtration Rate 55, BUN/Creatinine Ratio 34, Glucose Level 268H, Calcium Level 8.0L 06/05/21 03:00: Glucometer 235H 06/05/21 04:03: Glucometer 237H 06/05/21 05:10: Sodium Level 133L, Potassium Level 4.6, Chloride Level 103, Carbon Dioxide Level 20L, Anion Gap 10, Blood Urea Nitrogen 30H, Creatinine 0.96, Estimat Glomerular Filtration Rate 59, BUN/Creatinine Ratio 31, Glucose Level 237H, Calcium Level 8.2L, White Blood Count 8.9, Red Blood Count 4.34, Hemoglobin 12.8, Hematocrit 40, Mean Corpuscular Volume 93, Mean Corpuscular Hemoglobin 30, Mean Corpuscular Hemoglobin Concent 32, Red Cell Distribution Width 13.6, Platelet Count 204, Mean Platelet Volume 12.9H, Immature Granulocyte % (Auto) 0, Neutrophils (%) (Auto) 70, Lymphocytes (%) (Auto) 16, Monocytes (%) (Auto) 13H, Eosinophils (%) (Auto) 0, Basophils (%) (Auto) 0, Neutrophils # (Auto) 6.2, Lymphocytes # (Auto) 1.5, Monocytes # (Auto) 1.2H, Eosinophils # (Auto) 0.0, Basophils # (Auto) 0.0, Immature Granulocyte # (Auto) 0.0, Corrected Calcium 8.9, Phosphorus Level 3.1, Total Bilirubin 0.2, Aspartate Amino Transf (AST/SGOT) 30, Alanine Aminotransferase (ALT/SGPT) 26, Alkaline Phosphatase 94, Total Protein 6.0L, Albumin 3.1L, Triglycerides Level 161H, Cholesterol Level 106, LDL Cholesterol Direct 57, VLDL Cholesterol 32, HDL Cholesterol 27L, Beta-Hydroxybutyrate (Chem panel) 0.16 06/05/21 05:14: Glucometer 214H 06/05/21 06:10: Glucometer 239H 06/05/21 06:59: Glucometer 213H 06/05/21 08:03: Glucometer 202H 06/05/21 08:55: Glucometer 167H 06/05/21 09:57: Glucometer 144H 06/05/21 10:30: Sodium Level 133L, Potassium Level 3.8, Chloride Level 105, Carbon Dioxide Level 19L, Anion Gap 9, Blood Urea Nitrogen 23H, Creatinine 0.90, Estimat Glomerular Filtration Rate 63, BUN/Creatinine Ratio 26, Glucose Level 137H, Calcium Level 7.8L 06/05/21 11:03: Glucometer 125H 06/05/21 12:06: Glucometer 128H Assessment/Plan Assessment/Plan Assessment/Plan Small bowel obstruction Hyperglycemia AFib NSTEMI Anticoagulation (Lovenox and Heparin on 06/04) Neuropathy NPO NG tube patient refuses at this time Small bowel follow through today Iv fluids NSTEMI- cardiology consulted Conservative measures at this time. ELISA ZAMAN DO Jun 05, 2021 12:17
--- NOTE | 2021-06-05 12:26 | History & Physical-Hospitalist ---
COLT LUKE U 06/05/21 1226: History of Present Illness HPI/Chief Complaint Chanda Cornejo is a 85 yo F with a PMH of AFib, IDDM, CAD, HTN, neuropathy, and obstuctive lung dz presented to [place] with abdominal pain, nausea, vomiting and diarrhea. This began yesterday evening and she vomited 4 times. Her last bowel movement was 2 days ago and she has not been passing gas. There was no blood in her emesis or stool. Patient was transported to [place] via ambulance. CT of abd and pelvis w/ contrast showed dilated small bowel loops consistent with small bowel obstruction. Attempts to place a NG tube were unsuccessful and patient does not want this placed at all. Source: patient, RN/MD Exam Limitations: no limitations Date Seen 06/05/21 Time Seen by a Provider: 10:00 Attending Physician Sheree Pat Amanda S Aprn Referring Physician Date of Admission Jun 04, 2021 at 20:46 Home Medications & Allergies Home Medications Reviewed patient Home Medication Reconciliation performed by pharmacy medication reconciliations field technician and/or nursing. Patients Allergies have been reviewed. Allergies Allergies Coded Allergies Penicillins (Verified Allergy, Unknown, 03/04/18) codeine (Verified Allergy, Unknown, 03/04/18) levofloxacin (Verified Allergy, Unknown, 03/04/18) meperidine (Verified Allergy, Unknown, 03/04/18) mirabegron (Verified Allergy, Unknown, 03/04/18) morphine (Verified Allergy, Unknown, 03/04/18) oxycodone (Verified Allergy, Unknown, 03/04/18) sitagliptin (Verified Allergy, Unknown, 03/04/18) Past Ulplzvu-Tughpg-Qkavlc Hx Patient Social History Tobacco Use?: Yes Tobacco type used: Cigarettes Smoking Status: Former Smoker Smokeless Tobacco Frequency: Unknown if Ever Used Use of E-Cig and/or Vaping dev: Unable to obtain Substance use?: No Alcohol Use?: Yes Alcohol Frequency: Once in a while Pt feels they are or have been: Unable to obtain Immunizations Up To Date Date of Influenza Vaccine: Jan 25, 2021 Tetanus Booster (TDap): More Than 5 Years Hepatitis A: No Hepatitis B: Yes Date of Pneumonia Vaccine: Dec 12, 2017 Seasonal Allergies Seasonal Allergies: No Current Status status: No status: No Advance Directives: No Communicates: Verbally Primary Language: Belarusian Preferred Spoken Language: Belarusian Is interpretation needed?: No Implanted or Applied Medical D: None Past Medical History Surgeries: Abdominal (exploratory lap), Hysterectomy, Tubal Ligation Asthma, COPD Currently Using CPAP: No Currently Using BIPAP: No Coronary Artery Disease, Hypertension Neuropathy UTI-Chronic Arthritis, Chronic Back Pain Diabetes, Insulin dep Skin Did You Recieve Any Treatments: Yes What Type of Treatment Did You: Surgical Intervention Recent Skin Changes Blood Disorders: No Family Medical History Cardiovascular disease G8 BROTHER Completed stroke G8 SISTER Diabetes mellitus 19 MOTHER G8 BROTHER Fibromyalgia DAUGHTER Myocardial infarction 19 FATHER G8 BROTHER Review of Systems Constitutional: No chills, No fever EENTM: No hearing loss, No blurred vision Respiratory: No cough Cardiovascular: No chest pain, No palpitations Gastrointestinal: No abdominal pain, No constipation, No diarrhea, No hematemesis; nausea Skin: No change in color Physical Exam Physical Exam Vital Signs Vital Signs - First Documented 06/04/21 17:20 Temp 35.7 Pulse 107 Resp 18 B/P (MAP) 105/68 (80) Pulse Ox 96 O2 Delivery Room Air Capillary Refill : Height, Weight, BMI Height: 5'63.00" Weight: 219lbs. 1.0oz. 99.353810lb; 37.00 BMI Method: General Appearance: Mild Distress HEENT: Normal ENT Inspection Neck: Normal Inspection, Non Tender Respiratory: Normal Breath Sounds, No Accessory Muscle Use Cardiovascular: Irregularly Irregular Gastrointestinal: Non Tender, Soft Rectal: Deferred Back: Normal Inspection Extremity: Normal Inspection, Normal Range of Motion Neurologic/Psychiatric: Alert, Oriented x3 Skin: Normal Color, Warm/Dry Results Results/Procedures Labs Laboratory Tests 06/04/21 17:10 06/04/21 19:20 06/04/21 21:37 06/05/21 02:00 06/05/21 05:10 06/05/21 10:30 Patient resulted labs reviewed. Imaging: Reviewed Imaging Report Assessment/Plan Admission Diagnosis Small Bowel Obstruction, DKA Admission Status: Observation Assessment and Plan Small Bowl Obstruction - Continue IVF - NPO - pt denies NG tube placement - small bowel follow through done, results pending DKA - anion gap closed - continue DKA protocol for now - continue glucose checks q1h - NPO for SBO - reglan and zofran for nausea NSTEMI - s/p ASAx1 - s/p heparin bolus - cardiology consulted Afib - metop 50 - diltiazem gtt - lovenox - cardiology consulted COPD - SHEREE Morocho DO 06/06/21 0604: History of Present Illness HPI/Chief Complaint CC: DKA with small bowel obstruction with afib with RVR HPI: 85 [facility] pt of Madeline Mercado. She has a past medical history of atrial fibrillation on anticoagulation. She presented with abdominal pain found to have a small bowel obstruction. She refused the NG tube. Was found to be in DKA. She was placed on insulin drip. Dr. Thorne consulted for afib with RVR. She has been placed on Lovenox 1mg per kg in the meantime for stroke prophylaxis. She is adamant she doesn't want an NG tube. We will be on alert for any colon perforation that could occur. Source: patient, RN/MD Exam Limitations: clinical condition Past Zajsfwt-Eyedni-Ijhoky Hx Patient Social History Marrital Status: single Employed/Student: retired Smoking Status: Former Smoker Past Medical History High Cholesterol, Hypertension Diabetes, Insulin dep Family Medical History Cardiovascular disease G8 BROTHER Completed stroke G8 SISTER Diabetes mellitus 19 MOTHER G8 BROTHER Fibromyalgia DAUGHTER Myocardial infarction 19 FATHER G8 BROTHER Review of Systems Constitutional: see HPI, weakness Respiratory: no symptoms reported Cardiovascular: no symptoms reported Gastrointestinal: abdominal pain, loss of appetite, nausea, vomiting Psychiatric/Neurological: No Symptoms Reported Physical Exam Physical Exam General Appearance: Anxious, Chronically ill, Mild Distress Respiratory: Chest Non Tender, Lungs Clear, Normal Breath Sounds, No Accessory Muscle Use, No Respiratory Distress Cardiovascular: Regular Rate, Rhythm, No Edema, No Gallop, No JVD, No Murmur, Normal Peripheral Pulses Gastrointestinal: Tenderness Neurologic/Psychiatric: Alert, Oriented x3 Assessment/Plan Admission Diagnosis Assessment: DKA Small bowel obstruction A. fib with RVR Plan: Insulin drip Refuses NG tube Appreciate cardiology Appreciate general surgery Anticoagulation Admission Status: Inpatient Order (span 2 midnights) Reason for Inpatient Admission: DKA Supervisory-Addendum Brief Verification & Attestation Participated in pt care: history, MDM, physical Personally performed: exam, history, MDM, supervision of care Care discussed with: Medical Student Procedures: n/a Results interpretation: Verified all documentation Verification and Attestation of Medical Student E/M Service A medical student performed and documented this service in my presence. I reviewed and verified all information documented by the medical student and made modifications to such information, when appropriate. I personally performed the physical exam and medical decision making. Sheree Pat, Jun 06, 2021,06:01 COLT LUKE Jun 05, 2021 12:26 SHEREE PAT DO Jun 06, 2021 06:04
--- NOTE | 2021-06-05 13:18 | Consultation-Cardiology ---
HPI-Cardiology Cardiology Consultation: Date of Consultation 06/05/21 Time Seen by a Provider: 13:30 Date of Admission 06-04-21 Attending Physician Sheree Pat DO Admitting Physician Madeline Mercado Aprn Consulting Physician MELISSA THIBODEAUX HPI: Chief Complaint: NSTEMI Ms. Buckley is an 85 yr old female admitted to ICU 1 from the [facility] ED where she presented with abd pain, nausea and vomiting over the course of the last 2 days. She reports she has not taken any of her medications for several days d/t the n/v/d. She reports she has been unable to keep anything down. She states she has had left sided chest pressure which lasts for several minutes; does not radiate; is not r/t activity. She reports no other assoc symptoms. No c/o LE swelling. She states she has chronic redness to her feet bilat which is unchanged in the recent past. She denies any recent stent placement. No c/o palpitations. No c/o syncope or near syncope. Review of Systems-Cardiology Review of Systems Constitutional: No chills, No fever; malaise Eyes: No vision change Ears/Nose/Throat: No epistaxis, No recent hearing loss Respiratory: As described under HPI Cardiovascular: As described under HPI Gastrointestinal: As described under HPI Genitourinary: No dysuria, No hematuria Musculoskeletal: no symptoms reported Skin: As described under HPI Psychiatric/Neurological: No anxiety, No depression, No seizure, No focal weakness, No syncope Hematologic: No bleeding abnormalities All Other Systems Reviewed Negative Unless Noted: Yes (Negative excepted noted.) ZXN-Ocksui-Ozipxs Hx Patient Social History Smoking Status: Former Smoker 2nd Hand Smoke Exposure: No Have you traveled recently?: No Alcohol Use?: Yes Pt feels they are or have been: Unable to obtain Tobacco type used: Cigarettes Immunizations Up To Date Tetanus Booster (TDap): Unknown Date of Pneumonia Vaccine: Dec 12, 2017 Date of Influenza Vaccine: Jan 25, 2021 Past Medical History PMH As described under Assessment. Family Medical History Family Medical History: She reports her father had CAD. She reports a brother with CAD. She reports a sister with h/o CVA. Family History: Cardiovascular disease G8 BROTHER Completed stroke G8 SISTER Diabetes mellitus 19 MOTHER G8 BROTHER Fibromyalgia DAUGHTER Myocardial infarction 19 FATHER G8 BROTHER Allergies and Home Medications Allergies Coded Allergies: Penicillins (Verified Allergy, Unknown, 03/04/18) codeine (Verified Allergy, Unknown, 03/04/18) levofloxacin (Verified Allergy, Unknown, 03/04/18) meperidine (Verified Allergy, Unknown, 03/04/18) mirabegron (Verified Allergy, Unknown, 03/04/18) morphine (Verified Allergy, Unknown, 03/04/18) oxycodone (Verified Allergy, Unknown, 03/04/18) sitagliptin (Verified Allergy, Unknown, 03/04/18) Patient Home Medication List Albuterol Sulfate (Proair Hfa) 1 Puff Puff, 2 PUFF IH Q4H PRN for SHORTNESS OF BREATH, (Reported) Entered as Reported by: CINTHIA RUBIO on 03/04/18 1442 Last Action: Held Amitriptyline HCl (Amitriptyline HCl) 25 Mg Tablet, 25 MG PO HS, (Reported) Entered as Reported by: YOHANNES SUN on 06/05/211407 Last Action: Held Apixaban (Eliquis) 5 Mg Tablet, 5 MG PO BID, (Reported) Entered as Reported by: YOHANNES SUN on 06/05/211407 Last Action: Held Aspirin (Aspirin EC) 81 Mg Tablet.dr, 81 MG PO HS, (Reported) Entered as Reported by: CINTHIA RUBIO on 03/04/18 1434 Last Action: Held Calcium Citrate/Vitamin D3 (Calcium Citrate - Vit D3 Tab) 1 Each Tablet, 1 EACH PO DAILY, (Reported) Entered as Reported by: YOHANNES SUN on 06/05/211407 Last Action: Held Cranberry Extract/Vit C (Azo Cranberry Softgel) 1 Each Capsule, 1 EACH PO BID, (Reported) Entered as Reported by: YOHANNES SUN on 06/05/211407 Last Action: Held Fluticasone/Vilanterol (Breo Ellipta 100-25 Mcg INH) 1 Each Blst.w.dev, 1 PUFF INH DAILY, (Reported) Entered as Reported by: YOHANNES SUN on 06/28/20 1349 Last Action: Held Gabapentin (Neurontin) 300 Mg Capsule, 300 MG PO BID, (Reported) Entered as Reported by: YOHANNES SUN on 2/23/22 1408 Last Action: Held Glimepiride (Glimepiride) 2 Mg Tablet, 4 MG PO DAILY, (Reported) Entered as Reported by: CINTHIA RUBIO on 03/04/18 1434 Last Action: Held Insulin Degludec (Tresiba Flextouch U-100) 100 Unit/1 Ml Insuln.pen, 20 UNITS SC HS, (Reported) Entered as Reported by: YOHANNES SUN on 06/28/20 1349 Last Action: Held Lisinopril (Lisinopril) 20 Mg Tablet, 20 MG PO BID, (Reported) Entered as Reported by: CINTHIA RUBIO on 03/04/18 1434 Last Action: Held Loratadine (Loratadine) 10 Mg Tablet, 10 MG PO DAILY, (Reported) Entered as Reported by: CINTHIA RUBIO on 03/04/18 143 Last Action: Held Magnesium Oxide (Magnesium) 400 Mg Tablet, 400 MG PO HS, (Reported) Entered as Reported by: YOHANNES SUN on 06/28/20 134 Last Action: Held Metoprolol Succinate (Metoprolol Succinate) 50 Mg Tab.er.24h, 50 MG PO BID, (Reported) Entered as Reported by: CINTHIA RUBIO on 03/04/18 1434 Last Action: Held Montelukast Sodium (Montelukast Sodium) 10 Mg Tablet, 10 MG PO HS, (Reported) Entered as Reported by: YOHANNES SUN on 06/28/20 1349 Last Action: Held Multivitamin (Multi-Vitamin Daily) 1 Each Tablet, 1 EACH PO DAILY, (Reported) Entered as Reported by: CINTHIA RUBIO on 03/04/18 1442 Last Action: Held Nitroglycerin (Nitroglycerin) 0.4 Mg Tab.subl, 0.4 MG SL UD PRN for CHEST PAIN, (Reported) Entered as Reported by: YOHANNES SUN on 06/28/20 1349 Last Action: Held Ondansetron (Ondansetron Odt) 4 Mg Tab.rapdis, 4 MG PO Q8H PRN for NAUSEA/VOMITING-1ST LINE, (Reported) Entered as Reported by: YOHANNES SUN on 06/05/21 1441 Last Action: Held Pantoprazole Sodium (Pantoprazole Sodium) 40 Mg Tablet.dr, 40 MG PO DAILY, (Reported) Entered as Reported by: YOHANNES SUN on 06/05/21 1408 Last Action: Held Rosuvastatin Calcium (Rosuvastatin Calcium) 20 Mg Tablet, 20 MG PO DAILY, (Reported) Entered as Reported by: CINTHIA RUBIO on 03/04/18 143 Last Action: Held Semaglutide (Ozempic) 0.25 Mg/0.2 Ml Pen.injctr, 0.5 MG SQ SUN, (Reported) Entered as Reported by: YOHANNES SUN on 06/28/20 1349 Last Action: Held Spironolactone (Spironolactone) 25 Mg Tablet, 25 MG PO DAILY, (Reported) Entered as Reported by: YOHANNES SUN on 06/28/20 1349 Last Action: Held Discontinued Medications Acetaminophen (Acetaminophen) 325 Mg Tablet, 325 MG PO Q4H PRN for PAIN-MILD (1- 4), (Reported) Discontinued Reason: No Longer Taking Entered as Reported by: YOHANNES SUN on 06/28/20 1349 Last Action: Discontinued Alendronate Sodium (Alendronate Sodium) 70 Mg Tablet, 70 MG PO SUN, (Reported) Discontinued Reason: No Longer Taking Entered as Reported by: CINTHIA RUBIO on 03/04/18 143 Last Action: Discontinued Amitriptyline HCl (Amitriptyline HCl) 25 Mg Tablet, 25 MG PO HS, (Reported) Discontinued Reason: No Longer Taking Entered as Reported by: CINTHIA RUBIO on 03/04/18 143 Last Action: Discontinued Apixaban (Eliquis) 5 Mg Tablet, 5 MG PO BID, (Reported) Discontinued Reason: Duplicate Order Entered as Reported by: CINTHIA RUBIO on 03/04/18 143 Last Action: Discontinued Benzonatate (Tessalon Perle) 100 Mg Capsule, 100 MG PO TID PRN for COUGH, (Reported) Discontinued Reason: No Longer Taking Entered as Reported by: CINTHIA RUBIO on 03/04/18 1442 Last Action: Discontinued Calcium Carbonate (Calcium Carbonate) 260 Mg Tablet, 260 MG PO DAILY, (Reported) Discontinued Reason: Duplicate Order Entered as Reported by: YOHANNES SUN on 06/28/20 1352 Last Action: Discontinued Gabapentin (Gabapentin) 100 Mg Capsule, 100 MG PO BID, (Reported) Discontinued Reason: Duplicate Order Entered as Reported by: YOHANNES SUN on 06/28/20 1349 Last Action: Discontinued Hydrocodone/Ibuprofen (Hydrocodone-Ibuprofen 7.5-200) 1 Each Tablet, 1 EACH PO Q4HR PRN for PAIN-MODERATE (5-7) Discontinued Reason: No Longer Taking Prescribed by: SHEREE PAT on 07/06/20 0556 Last Action: Discontinued Metoprolol Tartrate (Metoprolol Tartrate) 50 Mg Tablet, 50 MG PO BID Discontinued Reason: Duplicate Order Prescribed by: JEANETTE LAWSON on 07/10/20 3142 Last Action: Discontinued Pantoprazole Sodium (Pantoprazole Sodium) 40 Mg Tablet.dr, 40 MG PO DAILY Discontinued Reason: Duplicate Order Prescribed by: SHEREE PAT on 07/06/20 0555 Last Action: Discontinued Physical Exam-Cardiology Physical Exam Vital Signs/I&O 06/05/21 06/05/21 06/05/21 06/05/21 22:00 23:00 23:00 23:28 Temp 36.8 Pulse 99 106 Resp B/P (MAP) 148/95 157/106 Pulse Ox 97 99 98 O2 Delivery Nasal Cannula Nasal Cannula Nasal Cannula Nasal Cannula O2 Flow Rate 2.00 2.00 2.00 2.00 06/06/21 06/06/21 06/06/21 06/06/21 00:00 01:00 01:00 02:00 Pulse 107 102 116 116 Resp 18 B/P (MAP) 142/73 140/84 135/70 Pulse Ox 97 96 95 O2 Delivery Nasal Cannula Nasal Cannula Nasal Cannula O2 Flow Rate 2.00 2.00 2.00 06/06/21 06/06/21 06/06/21 06/06/21 02:45 03:00 04:00 04:21 Temp 36.6 Pulse 89 81 Resp B/P (MAP) 118/70 126/63 Pulse Ox 97 97 97 O2 Delivery Nasal Cannula Nasal Cannula Nasal Cannula Nasal Cannula O2 Flow Rate 2.00 2.00 2.00 2.00 06/06/21 06/06/21 06/06/21 06/06/21 05:00 06:00 06:38 07:00 Pulse 78 86 99 Resp B/P (MAP) 103/68 111/50 Pulse Ox 96 96 96 O2 Delivery Nasal Cannula Nasal Cannula Nasal Cannula O2 Flow Rate 2.00 2.00 2.00 06/06/21 06/06/21 06/06/21 06/06/21 07:00 07:29 08:00 09:00 Temp 36.6 Pulse 71 82 87 Resp 34 B/P (MAP) 130/69 103/85 105/81 Pulse Ox 97 95 97 O2 Delivery Nasal Cannula Nasal Cannula Nasal Cannula O2 Flow Rate 2.00 2.00 2.00 06/06/21 00:00 Intake Total 1450 ml Output Total 525 ml Balance 925 ml Capillary Refill : Constitutional: AAO x 3, well-developed, well-nourished HEENT: PERRL, hearing is well preserved, oral hygience is good Neck: No carotid bruit; carotid pulses are 2 + bilaterally Respiratory: No accessory muscle use, No respiratory distress; chest expansion is symmetric, chest is bilaterally symmetric, lungs clear to auscultation Cardiovascular: irregularly irregular; No JVD; S1 and S2 Gastrointestinal: soft; No guarding, No audible bowel sounds Rectal: deferred Extremities: no lower extremity edema bilateral Neurologic/Psychiatric: grossly intact (moves all extremities) Skin: other (redness, warmth to feet bilat) Lymphatic: no adenopathy Data Review Labs Laboratory Tests 06/05/21 09:57: Glucometer 144H 06/05/21 10:30: Sodium Level 133L, Potassium Level 3.8, Chloride Level 105, Carbon Dioxide Level 19L, Anion Gap 9, Blood Urea Nitrogen 23H, Creatinine 0.90, Estimat Glomerular Filtration Rate 63, BUN/Creatinine Ratio 26, Glucose Level 137H, Calcium Level 7.8L 06/05/21 11:03: Glucometer 125H 06/05/21 12:06: Glucometer 128H 06/05/21 13:01: Glucometer 125H 06/05/21 14:04: Glucometer 95 06/05/21 16:02: Glucometer 254H 06/05/21 17:09: Glucometer 239H 06/05/21 18:00: Sodium Level 131L, Potassium Level 3.7, Chloride Level 103, Carbon Dioxide Level 18L, Anion Gap 10, Blood Urea Nitrogen 18, Creatinine 0.80, Estimat Glomerular Filtration Rate 73, BUN/Creatinine Ratio 23, Glucose Level 303H, Calcium Level 7.7L 06/05/21 18:03: Glucometer 284H 06/05/21 19:08: Glucometer 261H 06/05/21 19:46: Glucometer 203H 06/05/21 21:03: Glucometer 158H 06/05/21 22:01: Glucometer 149H 06/05/21 22:57: Glucometer 135H 06/06/21 00:10: Sodium Level 131L, Potassium Level 3.7, Chloride Level 103, Carbon Dioxide Level 19L, Anion Gap 9, Blood Urea Nitrogen 14, Creatinine 0.76, Estimat Glomerular Filtration Rate 78, BUN/Creatinine Ratio 18, Glucose Level 129H, Calcium Level 7.8L 06/06/21 00:16: Glucometer 132H 06/06/21 01:06: Glucometer 142H 06/06/21 02:03: Glucometer 162H 06/06/21 03:00: Glucometer 156H 06/06/21 04:05: Glucometer 166H 06/06/21 04:50: White Blood Count 12.1H, Red Blood Count 4.11, Hemoglobin 12.0, Hematocrit 38, Mean Corpuscular Volume 93, Mean Corpuscular Hemoglobin 29, Mean Corpuscular Hemoglobin Concent 31L, Red Cell Distribution Width 13.9, Platelet Count 184, Mean Platelet Volume 12.4H, Immature Granulocyte % (Auto) 1, Neutrophils (%) (Auto) 83H, Lymphocytes (%) (Auto) 8L, Monocytes (%) (Auto) 9, Eosinophils (%) (Auto) 0, Basophils (%) (Auto) 0, Neutrophils # (Auto) 10.0H, Lymphocytes # (Auto) 1.0, Monocytes # (Auto) 1.1H, Eosinophils # (Auto) 0.0, Basophils # (Auto) 0.0, Immature Granulocyte # (Auto) 0.1, Neutrophils % (Manual) 78, Lymphocytes % (Manual) 7, Monocytes % (Manual) 10, Eosinophils % (Manual) 0, Basophils % (Manual) 0, Band Neutrophils 3, Reactive Lymphocytes 2, Anisocytosis SLIGHT, Sodium Level 128L, Potassium Level 4.2, Chloride Level 102, Carbon Dioxide Level 18L, Anion Gap 8, Blood Urea Nitrogen 12, Creatinine 0.75, Estimat Glomerular Filtration Rate 79, BUN/Creatinine Ratio 16, Glucose Level 176H, Calcium Level 7.5L, Corrected Calcium 8.3L, Phosphorus Level 1.8L, Magnesium Level 1.1*L, Total Bilirubin 0.4, Aspartate Amino Transf (AST/SGOT) 27, Alanine Aminotransferase (ALT/SGPT) 23, Alkaline Phosphatase 83, Total Protein 5.6L, Albumin 3.0L, Beta-Hydroxybutyrate (Chem panel) 0.06 06/06/21 04:53: Glucometer 173H 06/06/21 06:00: Glucometer 189H 06/06/21 06:56: Glucometer 179H 06/06/21 08:25: Glucometer 122H 06/06/21 08:30: Lactic Acid Level 2.66*H 06/06/21 09:33: Glucometer 176H Microbiology 06/04/21 MRSA Screen - Final, Complete MRSA not isolated Radiology NAME: BERNARDO BUCKLEY [facility] REC#: [id number] PT STATUS: REG ER : 1935 PHYSICIAN: EDI ONEAL MD ADMIT DATE: 06/04/21/ER FS Signed Date of Exam:06/04/21 CT ABDOMEN/PELVIS W PROCEDURE: CT abdomen and pelvis with contrast. TECHNIQUE: Multiple contiguous axial images were obtained through the abdomen and pelvis after administration of intravenous contrast. Auto Exposure Controls were utilized during the CT exam to meet ALARA standards for radiation dose reduction. All CT scans use one or more of the following dose optimizing techniques: automated exposure control, MA and/or KvP adjustment based on patient size and exam type or iterative reconstruction. INDICATION: Abdominal pain. COMPARISON: No prior studies are available for comparison. FINDINGS: Lung bases are clear. There is generalized low density throughout the liver, consistent with hepatic steatosis. No discrete liver mass is detected. Gallbladder is surgically absent. No biliary ductal dilatation is seen. Pancreas and spleen are unremarkable. No adrenal mass is detected. Right kidney contains a small cortical low-attenuation lesion in the upper pole measuring 16 mm and suggestive of a cyst. No hydronephrosis noted. Aorta is heavily calcified but nonaneurysmal. There appear to be some dilated and fluid-filled small bowel loops in the central abdomen. There is significant laxity to the anterior abdominal wall with diastasis of the rectus musculature. No definite focal abdominal wall defect is seen to suggest a ventral hernia. No bowel wall thickening is seen. There are normal-caliber small bowel loops distally and possibility of small bowel obstruction cannot be excluded. There is no free air. There is no free fluid or fluid collection. Bladder is decompressed by Grant catheter. Bony structures demonstrate compression deformity of T11 vertebral body which is near vertebra plana. There is also probable superior endplate fracture of L2. These could be chronic. There is no retropulsion. IMPRESSION: 1. Dilated small bowel loops with transition distally, concerning for small bowel obstruction. Small bowel study would be useful for further evaluation. No free air, free fluid or fluid collection is detected. 2. Probable chronic compression deformities involving T11 and L2. Dictated by: Dictated on workstation # [id number] Dict: 06/04/211912 Trans: 06/04/211938 [facility] [id number] Interpreted by: LUIS ANTONIO ARCHULETA MD Electronically signed by: LUIS ANTONIO ARCHULETA MD 06/04/211938 NAME: BERNARDO BUCKLEY [facility] REC#: [id number] PT STATUS: ADM IN : 1935 PHYSICIAN: SHEREE PAT DO ADMIT DATE: 06/04/21/ICU Signed Date of Exam:06/04/21 CHEST 1 VIEW, AP/PA ONLY Portable chest COMPARISON to prior study from earlier in the same day. INDICATION: Central line placement. FINDINGS: A right internal jugular central line has been placed. This terminates within the distal SVC. There are no findings of a pneumothorax. Pulmonary interstitial prominence and heart size are unchanged from prior examination. There may be a trace left-sided effusion. There is no new alveolar consolidation IMPRESSION: 1. Interval placement of a new right internal jugular central line without pneumothorax. 2. Stable prominence of the pulmonary interstitial markings. 3. Possible trace left effusion. Dictated by: Dictated on workstation # [id number] Dict: 06/04/212217 Trans: 06/04/212249 [facility] [id number] Interpreted by: JOSE D BUCKNER MD Electronically signed by: JOSE D BUCKNER MD 06/04/212249 ECG Impression ECG Initial ECG Impression: Atrial Fibrillation A/P-Cardiology Assessment/Admission Diagnosis SBO with n/v/d - management per surgical services NSTEMI Non-specific chest discomfort Chronic a-fib - rate controlled - OAC with Eliquis CAD - h/o coronary stent placed 5-6 yrs ago at [facility] (follows with Dr. Craig at [facility]) H/O upper and lower endoscopy on 07-04-[address] Cooper - no active bleeding; gastritis; ext and internal hemorrhoids H/O lap carmelo by Dr. Cooper on 07-04-20 Echocardiogram of 06-29-20 showed LVEF 60-65%. LA mildly dilated. COPD H/O TIA's HTN HLD Fibromyalgia Carotid arterial dz - details unknown Right hip fracture following a non-syncopal fall in May 2020 - Discussion and Recomendations SBO - management per medical/surgical services A-fib - controlled rate - Cardizem gtt - Eliquis being held - Lovenox injections NSTEMI - receiving Lovenox - continue BB Monitor lab closely Further recs will be based on her hospital course We would like to thank medical services for this consult MELISSA WESTON Jun 05, 2021 13:18
[2021-06-05] MEDS ORDERED: CALC-787 PO (14:08)
[2021-06-05] MEDS ORDERED: PANT40TA52 PO (14:08)
[2021-06-05] MEDS ORDERED: CRAN1CAP5 PO (14:08)
[2021-06-05] MEDS ORDERED: APIX5TAB PO (14:08)
[2021-06-05] MEDS ORDERED: AMIT25TA9 PO (14:08)
[2021-06-05] MEDS ORDERED: GABA300C PO (14:08)
[2021-06-05] MEDS ORDERED: ONDA4TAB11 PO (14:41)
--- NOTE | 2021-06-05 16:46 | Diagnostic Imaging Report ---
INDICATION: Abdominal pain with imaging findings concerning for small bowel obstruction. PROCEDURE: Patient was administered 120 mL of Gastrografin mixed with 120 mL of water orally. Serial imaging was obtained of the abdomen until contrast was noted within the colon. FINDINGS: Preliminary imaging demonstrates mild gaseous distention of the stomach. There are gas-filled loops of small bowel present. There does appear to be some gas within the colon. Surgical clips in the right upper quadrant are likely cholecystectomy changes. After administration of contrast orally, there is distention of the stomach. There is migration of contrast from the stomach into the dilated loops of small bowel. There is progressive migration of the contrast through the dilated loops. There is likely some contrast within the proximal colon on the three-hour image. There is subsequent confirmation of contrast within the colon all the way to the level of the rectum on the six-hour delayed image. IMPRESSION: Small bowel follow-through study demonstrates complete migration of the contrast throughout the gastrointestinal system to the level of the rectum. While there are dilated loops of small bowel, high-degree obstruction is not demonstrated. Possibility of a lower grade or partial small bowel obstruction not completely excluded. Dictated by: Dictated on workstation # [id number]
[2021-06-05 18:21] LABS: POTASSIUM 3.7 MMOL/L (3.6-5.0)
[2021-06-05 18:22] LABS: CALCIUM 7.7 MG/DL (8.5-10.1)
[2021-06-05 18:26] LABS: CREATININE SERUM 0.8 MG/DL (0.60-1.30)
--- NOTE | 2021-06-05 20:09 | Consultation-Cardiology ---
HPI-Cardiology Cardiology Consultation: Date of Consultation 06/05/21 Time Seen by a Provider: 16:50 Date of Admission Attending Physician Sheree Pat DO Admitting Physician Madeline Mercado Aprn Consulting Physician MICHELLE BREWER MD, MA, FACP, FACC, FSCAI, CCDS Physician requesting Card consult: Dr Pat HPI: Chief Complaint: Reason for Card consult: Elevated troponin HPI Ms. Cornejo is an 85 yr old female admitted to ICU 1 from the [facility] ED where sh latanya presented with abd pain, nausea and vomiting over the course of the last 2 days. She reports she has not taken any of her medications for several days d/t the n/v/d. She reports she has been unable to keep anything down. She states she has had left sided chest pressure which lasts for several minutes; does not radiate; is not r/t activity. She reports no other assoc symptoms. No c/o LE swelling. She states she has chronic redness to her feet bilat which is unchanged in the recent past. She denies any recent stent placement. No c/o palpitations. No c/o syncope or near syncope. Review of Systems-Cardiology Review of Systems Constitutional: No chills, No fever; malaise Eyes: No vision change Ears/Nose/Throat: No epistaxis, No recent hearing loss Respiratory: As described under HPI Cardiovascular: As described under HPI Gastrointestinal: As described under HPI Genitourinary: No dysuria, No hematuria Musculoskeletal: no symptoms reported Skin: As described under HPI Psychiatric/Neurological: No anxiety, No depression, No seizure, No focal weakness, No syncope Hematologic: No bleeding abnormalities All Other Systems Reviewed Negative Unless Noted: Yes (Negative excepted noted.) NRU-Vrvaqa-Mekkwb Hx Patient Social History Smoking Status: Former Smoker 2nd Hand Smoke Exposure: No Have you traveled recently?: No Alcohol Use?: Yes Pt feels they are or have been: Unable to obtain Tobacco type used: Cigarettes Immunizations Up To Date Tetanus Booster (TDap): Unknown Date of Pneumonia Vaccine: Dec 12, 2017 Date of Influenza Vaccine: Jan 25, 2021 Past Medical History PMH As described under Assessment. Family Medical History Family Medical History: She reports her father had CAD. She reports a brother with CAD. She reports a sister with h/o CVA. Family History: Cardiovascular disease G8 BROTHER Completed stroke G8 SISTER Diabetes mellitus 19 MOTHER G8 BROTHER Fibromyalgia DAUGHTER Myocardial infarction 19 FATHER G8 BROTHER Allergies and Home Medications Allergies Coded Allergies: Penicillins (Verified Allergy, Unknown, 03/04/18) codeine (Verified Allergy, Unknown, 03/04/18) levofloxacin (Verified Allergy, Unknown, 03/04/18) meperidine (Verified Allergy, Unknown, 03/04/18) mirabegron (Verified Allergy, Unknown, 03/04/18) morphine (Verified Allergy, Unknown, 03/04/18) oxycodone (Verified Allergy, Unknown, 03/04/18) sitagliptin (Verified Allergy, Unknown, 03/04/18) Patient Home Medication List Home Medication List Reviewed: Yes Albuterol Sulfate (Proair Hfa) 1 Puff Puff, 2 PUFF IH Q4H PRN for SHORTNESS OF BREATH, (Reported) Entered as Reported by: CINTHIA RUBIO on 03/04/18 1442 Last Action: Held Amitriptyline HCl (Amitriptyline HCl) 25 Mg Tablet, 25 MG PO HS, (Reported) Entered as Reported by: YOHANNES SUN on 06/05/211407 Last Action: Held Apixaban (Eliquis) 5 Mg Tablet, 5 MG PO BID, (Reported) Entered as Reported by: YOHANNES SUN on 06/05/211407 Last Action: Held Aspirin (Aspirin EC) 81 Mg Tablet.dr, 81 MG PO HS, (Reported) Entered as Reported by: CINTHIA RUBIO on 03/04/18 1434 Last Action: Held Calcium Citrate/Vitamin D3 (Calcium Citrate - Vit D3 Tab) 1 Each Tablet, 1 EACH PO DAILY, (Reported) Entered as Reported by: YOHANNES SUN on 06/05/211407 Last Action: Held Cranberry Extract/Vit C (Azo Cranberry Softgel) 1 Each Capsule, 1 EACH PO BID, (Reported) Entered as Reported by: YOHANNES SUN on 06/05/211407 Last Action: Held Fluticasone/Vilanterol (Breo Ellipta 100-25 Mcg INH) 1 Each Blst.w.dev, 1 PUFF INH DAILY, (Reported) Entered as Reported by: YOHANNES SUN on 06/28/20 1349 Last Action: Held Gabapentin (Neurontin) 300 Mg Capsule, 300 MG PO BID, (Reported) Entered as Reported by: YOHANNES SUN on 06/05/21 1408 Last Action: Held Glimepiride (Glimepiride) 2 Mg Tablet, 4 MG PO DAILY, (Reported) Entered as Reported by: CINTHIA RUBIO on 03/04/18 1434 Last Action: Held Insulin Degludec (Tresiba Flextouch U-100) 100 Unit/1 Ml Insuln.pen, 20 UNITS SC HS, (Reported) Entered as Reported by: YOHANNES SUN on 06/28/20 134 Last Action: Held Lisinopril (Lisinopril) 20 Mg Tablet, 20 MG PO BID, (Reported) Entered as Reported by: CINTHIA RUBIO on 03/04/181433 Last Action: Held Loratadine (Loratadine) 10 Mg Tablet, 10 MG PO DAILY, (Reported) Entered as Reported by: CINTHIA RUBIO on 03/04/181433 Last Action: Held Magnesium Oxide (Magnesium) 400 Mg Tablet, 400 MG PO HS, (Reported) Entered as Reported by: YOHANNES SUN on 06/28/201348 Last Action: Held Metoprolol Succinate (Metoprolol Succinate) 50 Mg Tab.er.24h, 50 MG PO BID, ( Reported) Entered as Reported by: CINTHIA RUBIO on 03/04/18 143 Last Action: Held Montelukast Sodium (Montelukast Sodium) 10 Mg Tablet, 10 MG PO HS, (Reported) Entered as Reported by: YOHANNES SUN on 06/28/201348 Last Action: Held Multivitamin (Multi-Vitamin Daily) 1 Each Tablet, 1 EACH PO DAILY, (Reported) Entered as Reported by: CINTHIA RUBIO on 03/04/18 1442 Last Action: Held Nitroglycerin (Nitroglycerin) 0.4 Mg Tab.subl, 0.4 MG SL UD PRN for CHEST PAIN, (Reported) Entered as Reported by: YOHANNES SUN on 06/28/201348 Last Action: Held Ondansetron (Ondansetron Odt) 4 Mg Tab.rapdis, 4 MG PO Q8H PRN for NAUSE A/VOMITING-1ST LINE, (Reported) Entered as Reported by: YOHANNES SUN on 06/05/21 1441 Last Action: Held Pantoprazole Sodium (Pantoprazole Sodium) 40 Mg Tablet.dr, 40 MG PO DAILY, (Reported) Entered as Reported by: YOHANNES SUN on 06/05/21 1408 Last Action: Held Rosuvastatin Calcium (Rosuvastatin Calcium) 20 Mg Tablet, 20 MG PO DAILY, (Reported) Entered as Reported by: CINTHIA RUBIO on 03/04/18 1434 Last Action: Held Semaglutide (Ozempic) 0.25 Mg/0.2 Ml Pen.injctr, 0.5 MG SQ SUN, (Reported) Entered as Reported by: YOHANNES SUN on 06/28/20 1349 Last Action: Held Spironolactone (Spironolactone) 25 Mg Tablet, 25 MG PO DAILY, (Reported) Entered as Reported by: YOHANNES SUN on 06/28/20 134 Last Action: Held Discontinued Medications Acetaminophen (Acetaminophen) 325 Mg Tablet, 325 MG PO Q4H PRN for PAIN-MILD (1- 4), (Reported) Discontinued Reason: No Longer Taking Entered as Reported by: YOHANNES SUN on 06/28/20 1349 Last Action: Discontinued Alendronate Sodium (Alendronate Sodium) 70 Mg Tablet, 70 MG PO SUN, (Reported) Discontinued Reason: No Longer Taking Entered as Reported by: CINTHIA RUBIO on 03/04/18 143 Last Action: Discontinued Amitriptyline HCl (Amitriptyline HCl) 25 Mg Tablet, 25 MG PO HS, (Reported) Discontinued Reason: No Longer Taking Entered as Reported by: CINTHIA RUBIO on 03/04/18 1434 Last Action: Discontinued Apixaban (Eliquis) 5 Mg Tablet, 5 MG PO BID, (Reported) Discontinued Reason: Duplicate Order Entered as Reported by: CINTHIA RUBIO on 03/04/18 1434 Last Action: Discontinued Benzonatate (Tessalon Perle) 100 Mg Capsule, 100 MG PO TID PRN for COUGH, (Reported) Discontinued Reason: No Longer Taking Entered as Reported by: CINTHIA RUBIO on 03/04/18 1442 Last Action: Discontinued Calcium Carbonate (Calcium Carbonate) 260 Mg Tablet, 260 MG PO DAILY, (Reported) Discontinued Reason: Duplicate Order Entered as Reported by: YOHANNES SUN on 06/28/20 1352 Last Action: Discontinued Gabapentin (Gabapentin) 100 Mg Capsule, 100 MG PO BID, (Reported) Discontinued Reason: Duplicate Order Entered as Reported by: YOHANNES SUN on 06/28/20 1349 Last Action: Discontinued Hydrocodone/Ibuprofen (Hydrocodone-Ibuprofen 7.5-200) 1 Each Tablet, 1 EACH PO Q4HR PRN for PAIN-MODERATE (5-7) Discontinued Reason: No Longer Taking Prescribed by: SHEREE PAT on 07/06/20 0556 Last Action: Discontinued Metoprolol Tartrate (Metoprolol Tartrate) 50 Mg Tablet, 50 MG PO BID Discontinued Reason: Duplicate Order Prescribed by: JEANETTE LAWSON on 07/10/20 1733 Last Action: Discontinued Pantoprazole Sodium (Pantoprazole Sodium) 40 Mg Tablet.dr, 40 MG PO DAILY Discontinued Reason: Duplicate Order Prescribed by: SHEREE PAT on 07/06/2055 Last Action: Discontinued Physical Exam-Cardiology Physical Exam Vital Signs/I&O 06/05/21 06/05/21 06/05/21 06/05/21 08:00 08:00 09:00 10:00 Pulse 98 105 107 Resp 27 19 B/P (MAP) 139/73 141/75 144/90 Pulse Ox 100 100 100 100 O2 Delivery Nasal Cannula Nasal Cannula Nasal Cannula Nasal Cannula O2 Flow Rate 2.00 2.00 2.00 2.00 06/05/21 06/05/21 06/05/21 06/05/21 10:44 11:00 12:00 12:00 Temp 36.3 Pulse 100 113 Resp 35 13 B/P (MAP) 148/93 151/89 Pulse Ox 99 94 100 O2 Delivery Nasal Cannula Nasal Cannula Nasal Cannula O2 Flow Rate 2.00 2.00 2.00 06/05/21 06/05/21 06/05/21 06/05/21 12:00 12:55 13:00 14:00 Pulse 114 92 93 Resp 17 B/P (MAP) 142/81 145/96 Pulse Ox 100 93 92 O2 Delivery Nasal Cannula Nasal Cannula Nasal Cannula O2 Flow Rate 2.00 2.00 2.00 06/05/21 06/05/21 06/05/21 06/05/21 14:48 15:00 16:00 16:00 Pulse 81 92 Resp 12 21 B/P (MAP) 152/80 140/72 Pulse Ox 100 100 99 98 O2 Delivery Nasal Cannula Nasal Cannula Nasal Cannula Nasal Cannula O2 Flow Rate 2.00 2.00 2.00 2.00 06/05/21 06/05/21 17:00 18:00 Pulse 105 108 Resp 21 25 B/P (MAP) 148/91 154/91 Pulse Ox 93 100 O2 Delivery Nasal Cannula Nasal Cannula O2 Flow Rate 2.00 2.00 Capillary Refill : Constitutional: AAO x 3, well-developed, well-nourished HEENT: PERRL, hearing is well preserved, oral hygience is good Neck: No carotid bruit; carotid pulses are 2 + bilaterally Respiratory: No accessory muscle use, No respiratory distress; chest expansion is symmetric, chest is bilaterally symmetric, lungs clear to auscultation Cardiovascular: irregularly irregular; No JVD; S1 and S2 Gastrointestinal: soft; No guarding, No audible bowel sounds Rectal: deferred Extremities: no lower extremity edema bilateral Neurologic/Psychiatric: grossly intact (moves all extremities) Skin: other (redness, warmth to feet bilat) Lymphatic: no adenopathy Data Review Labs Laboratory Tests 06/04/21 21:16: Glucometer 300H 06/04/21 21:37: Sodium Level 132L, Potassium Level 5.8H, Chloride Level 102, Carbon Dioxide Level 15L, Anion Gap 15H, Blood Urea Nitrogen 36H, Creatinine 1.11, Estimat Glomerular Filtration Rate 49, BUN/Creatinine Ratio 32, Glucose Level 325H, Mean Blood Glucose 189H, Hemoglobin A1c 8.2H, Lactic Acid Level 1.68, Calcium Level 8.3L, Troponin I 1.236*H, Beta-Hydroxybutyrate (Chem panel) 2.67H 06/04/21 22:46: Glucometer 103 06/04/21 22:48: Glucometer 301H 06/04/21 23:51: Glucometer 298H 06/05/21 00:57: Glucometer 231H 06/05/21 01:58: Glucometer 244H 06/05/21 02:00: Sodium Level 132L, Potassium Level 5.0, Chloride Level 102, Carbon Dioxide Level 19L, Anion Gap 11, Blood Urea Nitrogen 34H, Creatinine 1.01, Estimat Glomerular Filtration Rate 55, BUN/Creatinine Ratio 34, Glucose Level 268H, Calcium Level 8.0L 06/05/21 03:00: Glucometer 235H 06/05/21 04:03: Glucometer 237H 06/05/21 05:10: White Blood Count 8.9, Red Blood Count 4.34, Hemoglobin 12.8, Hematocrit 40, Mean Corpuscular Volume 93, Mean Corpuscular Hemoglobin 30, Mean Corpuscular Hemoglobin Concent 32, Red Cell Distribution Width 13.6, Platelet Count 204, Mean Platelet Volume 12.9H, Immature Granulocyte % (Auto) 0, Neutrophils (%) (Auto) 70, Lymphocytes (%) (Auto) 16, Monocytes (%) (Auto) 13H, Eosinophils (%) (Auto) 0, Basophils (%) (Auto) 0, Neutrophils # (Auto) 6.2, Lymphocytes # (Auto) 1.5, Monocytes # (Auto) 1.2H, Eosinophils # (Auto) 0.0, Basophils # (Auto) 0.0, Immature Granulocyte # (Auto) 0.0, Sodium Level 133L, Potassium Level 4.6, Chloride Level 103, Carbon Dioxide Level 20L, Anion Gap 10, Blood Urea Nitrogen 30H, Creatinine 0.96, Estimat Glomerular Filtration Rate 59, BUN/Creatinine Ratio 31, Glucose Level 237H, Calcium Level 8.2L, Corrected Calcium 8.9, Phosphorus Level 3.1, Total Bilirubin 0.2, Aspartate Amino Transf (AST/SGOT) 30, Alanine Aminotransferase (ALT/SGPT) 26, Alkaline Phosphatase 94, Total Protein 6.0L, Albumin 3.1L, Triglycerides Level 161H, Cholesterol Level 106, LDL Cholesterol Direct 57, VLDL Cholesterol 32, HDL Cholesterol 27L, Beta- Hydroxybutyrate (Chem panel) 0.16 06/05/21 05:14: Glucometer 214H 06/05/21 06:10: Glucometer 239H 06/05/21 06:59: Glucometer 213H 06/05/21 08:03: Glucometer 202H 06/05/21 08:55: Glucometer 167H 06/05/21 09:57: Glucometer 144H 06/05/21 10:30: Sodium Level 133L, Potassium Level 3.8, Chloride Level 105, Carbon Dioxide Level 19L, Anion Gap 9, Blood Urea Nitrogen 23H, Creatinine 0.90, Estimat Glomerular Filtration Rate 63, BUN/Creatinine Ratio 26, Glucose Level 137H, Calcium Level 7.8L 06/05/21 11:03: Glucometer 125H 06/05/21 12:06: Glucometer 128H 06/05/21 13:01: Glucometer 125H 06/05/21 14:04: Glucometer 95 06/05/21 16:02: Glucometer 254H 06/05/21 17:09: Glucometer 239H 06/05/21 18:00: Sodium Level 131L, Potassium Level 3.7, Chloride Level 103, Carbon Dioxide Level 18L, Anion Gap 10, Blood Urea Nitrogen 18, Creatinine 0.80, Estimat Glomerular Filtration Rate 73, BUN/Creatinine Ratio 23, Glucose Level 303H, Calcium Level 7.7L 06/05/21 18:03: Glucometer 284H 06/05/21 19:08: Glucometer 261H 06/05/21 19:46: Glucometer 203H A/P-Cardiology Assessment/Admission Diagnosis SBO with n/v/d - management per surgical services NSTEMI Non-specific chest discomfort Chronic a-fib - rate controlled - OAC with Eliquis CAD - h/o coronary stent placed 5-6 yrs ago at [facility] (follows with Dr. Craig at [facility]) H/O upper and lower endoscopy on 07-04-[address] Cooper - no active bleeding; gastritis; ext and internal hemorrhoids H/O lap carmelo by Dr. Cooper on 07-04-20 Echocardiogram of 06-29-20 showed LVEF 60-65%. LA mildly dilated. COPD H/O TIA's HTN HLD Fibromyalgia Carotid arterial dz - details unknown Right hip fracture following a non-syncopal fall in May 2020 - Discussion and Recomendations She probably had a small NSTEMI, but it appears best managed conservatively at this time, given that she would need uninterrupted dual antiplatelet therapy if she ends up with coronary intervention. Currently she cannot take such oral agents. Also, I did discuss the invasive option with her and she refuses it For A-fib, continue dilt infusion and sc enoxaparin Monitor lab closely Further recs will be based on her hospital course MICHELLE BREWER MD FACP [facility] CCDS Jun 05, 2021 20:09
[2021-06-06] MEDS: dilTIAZem DRIP PRE-MIX 125 ML IV SCH ×2 (00:18→12:59)
[2021-06-06 00:41] LABS: POTASSIUM 3.7 MMOL/L (3.6-5.0)
[2021-06-06 00:43] LABS: CALCIUM 7.8 MG/DL (8.5-10.1)
[2021-06-06 00:47] LABS: CREATININE SERUM 0.76 MG/DL (0.60-1.30)
[2021-06-06] MEDS: fentaNYL INJ 100 MCG/2 ML AMP IVP PRN ×3 (02:15→21:43)
[2021-06-06] MEDS: 1/2 NS IV SOLUTION 1,000 ML IV SCH ×6 (02:32→21:44)
[2021-06-06] MEDS: POTASSIUM CL 10MEQ/50ML IVPB 50 ML IV SCH ×5 (03:17→11:11)
[2021-06-06 05:00] LABS: BASOPHILS % (AUTO) 0 % (0-10); EOSINOPHILS % (AUTO) 0 % (0-10); HEMATOCRIT 38 % (35-52); LYMPHOCYTES % (AUTO) 8 % (12-44); MEAN CORPUSCULAR HEMOGLOBIN 29 pg (25-34); MEAN CORPUSCULAR HGB CONC 31 g/dL (32-36); MEAN CORPUSCULAR VOLUME 93 fL (80-99); MEAN PLATELET VOLUME 12.4 fL (9.0-12.2); MONOCYTES # (AUTO) 1.1 10^3/uL (0.0-1.0); MONOCYTES % (AUTO) 9 % (0-12); NEUTROPHILS % (AUTO) 83 % (42-75); PLATELET COUNT 184 10^3/uL (130-400); WHITE BLOOD COUNT 12.1 10^3/uL (4.3-11.0)
[2021-06-06 05:24] LABS: ANISOCYTOSIS SLIGHT; BAND NEUTROPHILS 3 %; BASOPHILS % (MANUAL) 0 %; EOSINOPHILS % (MANUAL) 0 %; LYMPHOCYTES % (MANUAL) 7 %; MONOCYTES % (MANUAL) 10 %; NEUTROPHILS % (MANUAL) 78 %; REACTIVE LYMPHOCYTES 2 %
[2021-06-06 05:34] LABS: POTASSIUM 4.2 MMOL/L (3.6-5.0)
[2021-06-06] MEDS: NS IV 1000 ML 1,000 ML IV SCH ×3 (05:34→21:44)
[2021-06-06] MEDS: KCL 20 MEQ TAB (K-DUR) PO SCH (05:35)
[2021-06-06 05:36] LABS: CALCIUM 7.5 MG/DL (8.5-10.1)
[2021-06-06 05:37] LABS: TOTAL PROTEIN 5.6 GM/DL (6.4-8.2)
[2021-06-06 05:38] LABS: BILIRUBIN,TOTAL 0.4 MG/DL (0.1-1.0)
[2021-06-06 05:40] LABS: CREATININE SERUM 0.75 MG/DL (0.60-1.30); PHOSPHORUS 1.8 MG/DL (2.3-4.7)
--- NOTE | 2021-06-06 06:22 | Progress Note - Surgery ---
NATO CHANEY 06/06/21 0622: Subjective Date Seen by a Provider: Jun 06, 2021 Time Seen by a Provider: 05:30 Subjective/Events-last exam Pt reports "feeling bad" this morning. States she has a 10/10 stomach ache in the epigastric region, but says it's hard to describe the pain. Pt appears uncomfortable and shifts around frequently. She has passed 4 diarrheal stools that are mostly bile. Pt said she "may have vomited" this morning, but could not remember. She does not think she is passing gas apart from the diarrhea. She has a slight cough and SOB, which she received breathing treatments for. Pt still refusing NG tube. Denies CP, fever, and palpitations at the moment. Her small bowel follow through study showed complete migration of contrast, indicating a low grade or partial small bowel obstruction. Review of Systems General: Chills, Fatigue HEENT: No Head Aches, No Visual Changes Pulmonary: Dyspnea, Cough Cardiovascular: No: Chest Pain, Palpitations Gastrointestinal: Nausea, Vomiting, Abdominal Pain Genitourinary: No Dysuria, No Hematuria Musculoskeletal: neck pain (muscular), foot pain (neuropathic) Neurological: No: Weakness, Change in speech Focused Exam Lactate Level 06/04/21 21:37: Lactic Acid Level 1.68 Respiratory: Lungs Clear, Normal Breath Sounds, No Accessory Muscle Use Cardiovascular: Normal Peripheral Pulses, Irregularly Irregular Peripheral Pulses: 2+ Radial Pulses (R), 2+ Radial Pulses (L) Skin: normal color, warm/dry, other (feet chronic redness bilat) Objective Exam Vital Signs Date Time Temp Pulse Resp B/P (MAP) Pulse Ox O2 Delivery O2 Flow Rate FiO2 06/06/21 06:00 86 28 111/50 96 Nasal Cannula 2.00 06/06/21 05:00 78 27 103/68 96 Nasal Cannula 2.00 06/06/21 04:21 97 Nasal Cannula 2.00 06/06/21 04:00 81 27 126/63 97 Nasal Cannula 2.00 06/06/21 03:00 89 17 118/70 97 Nasal Cannula 2.00 06/06/21 02:45 36.6 Nasal Cannula 2.00 06/06/21 02:00 116 18 135/70 95 Nasal Cannula 2.00 06/06/21 01:00 116 06/06/21 01:00 102 23 140/84 96 Nasal Cannula 2.00 06/06/21 00:00 107 24 142/73 97 Nasal Cannula 2.00 06/05/21 23:28 98 Nasal Cannula 2.00 06/05/21 23:00 36.8 Nasal Cannula 2.00 06/05/21 23:00 106 21 157/106 99 Nasal Cannula 2.00 06/05/21 22:00 99 20 148/95 97 Nasal Cannula 2.00 06/05/21 21:00 84 20 140/79 97 Nasal Cannula 2.00 06/05/21 20:00 97 Nasal Cannula 2.00 06/05/21 20:00 98 26 147/101 97 Nasal Cannula 2.00 06/05/21 19:00 104 06/05/21 19:00 98 14 165/94 99 Nasal Cannula 2.00 06/05/21 19:00 36.4 Nasal Cannula 2.00 06/05/21 18:00 108 25 154/91 100 Nasal Cannula 2.00 06/05/21 17:00 105 21 148/91 93 Nasal Cannula 2.00 06/05/21 16:00 98 Nasal Cannula 2.00 06/05/21 16:00 92 21 140/72 99 Nasal Cannula 2.00 06/05/21 15:00 81 12 152/80 100 Nasal Cannula 2.00 06/05/21 14:48 100 Nasal Cannula 2.00 06/05/21 14:00 93 145/96 92 Nasal Cannula 2.00 06/05/21 13:00 92 17 142/81 93 Nasal Cannula 2.00 06/05/21 12:55 114 06/05/21 12:00 100 Nasal Cannula 2.00 06/05/21 12:00 113 13 151/89 100 Nasal Cannula 2.00 06/05/21 12:00 36.3 06/05/21 11:00 100 35 148/93 94 Nasal Cannula 2.00 06/05/21 10:44 99 Nasal Cannula 2.00 06/05/21 10:00 107 19 144/90 100 Nasal Cannula 2.00 06/05/21 09:00 105 27 141/75 100 Nasal Cannula 2.00 06/05/21 08:00 100 Nasal Cannula 2.00 06/05/21 08:00 98 139/73 100 Nasal Cannula 2.00 06/05/21 07:37 37.1 06/05/21 07:00 93 131/76 97 Nasal Cannula 2.00 06/05/21 07:00 101 06/05/21 06:27 100 Nasal Cannula 2.00 I & O 06/06/21 06:59 Intake Total 2450 ml Output Total 1100 ml Balance 1350 ml General Appearance: Anxious, Chronically ill Neck: Normal Inspection Respiratory: Lungs Clear, Normal Breath Sounds, No Respiratory Distress Cardiovascular: Normal Peripheral Pulses, Irregularly Irregular Peripheral Pulses: 2+ Dorsalis Pedis (R), 2+ Left Dors-Pedis (L), 2+ Radial Pulses (R), 2+ Radial Pulses (L) Gastrointestinal: distended (minimally), tenderness (mild diffuse) Extremity: Normal Inspection, Normal Range of Motion Neurologic/Psychiatric: Alert, Oriented x3, Normal Mood/Affect Skin: Normal Color, Warm/Dry Results Lab Laboratory Tests 06/05/21 06:59: Glucometer 213H 06/05/21 08:03: Glucometer 202H 06/05/21 08:55: Glucometer 167H 06/05/21 09:57: Glucometer 144H 06/05/21 10:30: Sodium Level 133L, Potassium Level 3.8, Chloride Level 105, Carbon Dioxide Level 19L, Anion Gap 9, Blood Urea Nitrogen 23H, Creatinine 0.90, Estimat Glomerular Filtration Rate 63, BUN/Creatinine Ratio 26, Glucose Level 137H, Calcium Level 7.8L 06/05/21 11:03: Glucometer 125H 06/05/21 12:06: Glucometer 128H 06/05/21 13:01: Glucometer 125H 06/05/21 14:04: Glucometer 95 06/05/21 16:02: Glucometer 254H 06/05/21 17:09: Glucometer 239H 06/05/21 18:00: Sodium Level 131L, Potassium Level 3.7, Chloride Level 103, Carbon Dioxide Level 18L, Anion Gap 10, Blood Urea Nitrogen 18, Creatinine 0.80, Estimat Glomerular Filtration Rate 73, BUN/Creatinine Ratio 23, Glucose Level 303H, Calcium Level 7.7L 06/05/21 18:03: Glucometer 284H 06/05/21 19:08: Glucometer 261H 06/05/21 19:46: Glucometer 203H 06/05/21 21:03: Glucometer 158H 06/05/21 22:01: Glucometer 149H 06/05/21 22:57: Glucometer 135H 06/06/21 00:10: Sodium Level 131L, Potassium Level 3.7, Chloride Level 103, Carbon Dioxide Level 19L, Anion Gap 9, Blood Urea Nitrogen 14, Creatinine 0.76, Estimat Glomerular Filtration Rate 78, BUN/Creatinine Ratio 18, Glucose Level 129H, Calcium Level 7.8L 06/06/21 00:16: Glucometer 132H 06/06/21 01:06: Glucometer 142H 06/06/21 02:03: Glucometer 162H 06/06/21 03:00: Glucometer 156H 06/06/21 04:05: Glucometer 166H 06/06/21 04:50: White Blood Count 12.1H, Red Blood Count 4.11, Hemoglobin 12.0, Hematocrit 38, Mean Corpuscular Volume 93, Mean Corpuscular Hemoglobin 29, Mean Corpuscular Hemoglobin Concent 31L, Red Cell Distribution Width 13.9, Platelet Count 184, Mean Platelet Volume 12.4H, Immature Granulocyte % (Auto) 1, Neutrophils (%) (Auto) 83H, Lymphocytes (%) (Auto) 8L, Monocytes (%) (Auto) 9, Eosinophils (%) (Auto) 0, Basophils (%) (Auto) 0, Neutrophils # (Auto) 10.0H, Lymphocytes # (Auto) 1.0, Monocytes # (Auto) 1.1H, Eosinophils # (Auto) 0.0, Basophils # (Auto) 0.0, Immature Granulocyte # (Auto) 0.1, Neutrophils % (Manual) 78, Lymphocytes % (Manual) 7, Monocytes % (Manual) 10, Eosinophils % (Manual) 0, Basophils % (Manual) 0, Band Neutrophils 3, Reactive Lymphocytes 2, Anisocytosis SLIGHT, Sodium Level 128L, Potassium Level 4.2, Chloride Level 102, Carbon Dioxide Level 18L, Anion Gap 8, Blood Urea Nitrogen 12, Creatinine 0.75, Estimat Glomerular Filtration Rate 79, BUN/Creatinine Ratio 16, Glucose Level 176H, Calcium Level 7.5L, Corrected Calcium 8.3L, Phosphorus Level 1.8L, Total Bilirubin 0.4, Aspartate Amino Transf (AST/SGOT) 27, Alanine Aminotransferase (ALT/SGPT) 23, Alkaline Phosphatase 83, Total Protein 5.6L, Albumin 3.0L, Beta- Hydroxybutyrate (Chem panel) 0.06 06/06/21 04:53: Glucometer 173H 06/06/21 06:00: Glucometer 189H Assessment/Plan Assessment/Plan Assessment/Plan Small bowel obstruction Hyperglycemia AFib NSTEMI Anticoagulation (Lovenox) Neuropathy NPO NG tube patient refuses at this time IVF NSTEMI- cardiology consulted, conservative management, Eliquis held August d/c insulin drip if sugars continue to improve Monitor labs and vitals Conservative measures at this time ELISA GLASS DO 06/06/21 1707: Subjective Subjective/Events-last exam Feeling bad this morning. Abdominal pain she rates at 10/10. Refusing NG tube. Passed some liquid stools. Had emesis. Still with nausea. Refusing NG tube without being put out. Objective Exam General Appearance: Anxious, Chronically ill HEENT: PERRL/EOMI, Normal ENT Inspection Neck: Normal Inspection, Non Tender Respiratory: Chest Non Tender, No Accessory Muscle Use, No Respiratory Distress Cardiovascular: No JVD, Irregularly Irregular Gastrointestinal: distended (minimally), tenderness (mild diffuse) Extremity: Normal Inspection, Normal Range of Motion Neurologic/Psychiatric: Alert, Oriented x3, Normal Mood/Affect Skin: Normal Color, Warm/Dry Lymphatic: No Adenopathy Assessment/Plan Assessment/Plan Assessment/Plan Small bowel obstruction Hyperglycemia AFib NSTEMI Anticoagulation (Lovenox) Neuropathy NPO NG tube patient refuses at this time [facility] NSTEMI- cardiology consulted, conservative management, Eliquis held August d/c insulin drip if sugars continue to improve Monitor labs and vitals Conservative measures at this time Called to re-evaluate the patient. She has worsening abdominal pain. Nausea and emesis. Patient on exam is extremely tender compared to this morning exam. Dr. Young concerned for ischemic bowel, which I am as well due to change in exam. Patient and family understands she is high risk and discussed potential outcomes, and intubation postoperatively. Patient and family agree with proceeding with exploratory laparotomy all other indicated procedures. TO OR Type and screen. Supervisory-Addendum Brief Verification & Attestation Participated in pt care: history, MDM, physical Personally performed: exam, history, MDM, supervision of care Care discussed with: Medical Student Procedures: n/a Results interpretation: Verified all documentation Verification and Attestation of Medical Student E/M Service A medical student performed and documented this service in my presence. I reviewed and verified all information documented by the medical student and made modifications to such information, when appropriate. I personally performed the physical exam and medical decision making. Elisa Glass, Jun 06, 2021,17:07 NATO CHANEY Jun 06, 2021 06:22 ELISA GLASS DO Jun 06, 2021 17:07
[2021-06-06] MEDS: RT-ALBUTEROL/IPRATROPIUM 3 ML (DUONEB) VIAL INH SCH ×5 (06:38→22:00)
[2021-06-06] MEDS: MAGNESIUM 1 GM/100 ML IVPB 100 ML IV SCH ×4 (06:52→11:10)
[2021-06-06] MEDS: D5 1/2 NS 1000 ML IV SOLUTION 1,000 ML IV SCH (08:29)
[2021-06-06] MEDS: PANTOPRAZOLE 40 MG (PROTONIX) VIAL IV SCH (08:40)
[2021-06-06] MEDS: ENOXAPARIN 100 MG/1 ML (LOVENOX) SYR SC SCH ×2 (08:41→20:27)
--- NOTE | 2021-06-06 09:25 | Progress Note - Cardiology ---
Cardiology SOAP Progress Note Subjective: Sitting up in bed Continues to c/o nausea C/O SOB this morning No c/o CP or palpitations Objective: I&O/Vital Signs 06/06/21 06/06/21 06/06/21 06/06/21 22:00 22:00 22:40 23:00 Temp 36.1 Pulse 60 74 66 Resp 18 17 B/P (MAP) 110/54 119/59 108/45 Pulse Ox 100 100 O2 Delivery Mechanical Ventilator Mechanical Ventilator O2 Flow Rate 50.00 50.00 06/06/21 06/07/21 06/07/21 06/07/21 23:59 00:00 00:00 00:39 Temp 36.4 Pulse 76 84 Resp 19 22 B/P (MAP) 124/77 Pulse Ox 97 100 100 O2 Delivery Mechanical Ventilator Mechanical Ventilator O2 Flow Rate 50.00 FiO2 50 50 06/07/21 06/07/21 06/07/21 06/07/21 00:43 01:00 01:00 02:00 Pulse 76 68 84 Resp 18 18 B/P (MAP) 114/48 122/60 Pulse Ox 100 100 O2 Delivery Mechanical Ventilator Mechanical Ventilator O2 Flow Rate 50.00 50.00 FiO2 50 06/07/21 06/07/21 06/07/21 06/07/21 02:21 03:00 04:00 04:00 Temp 36.8 Pulse 79 98 95 Resp 19 18 22 B/P (MAP) 107/58 129/82 Pulse Ox 100 100 100 O2 Delivery Mechanical Ventilator Mechanical Ventilator O2 Flow Rate 50.00 50.00 FiO2 50 06/07/21 06/07/21 06/07/21 06/07/21 04:00 04:43 05:00 05:00 Pulse 85 107 Resp 20 22 B/P (MAP) 102/60 Pulse Ox 97 100 96 O2 Delivery Mechanical Ventilator Mechanical Ventilator O2 Flow Rate 50.00 FiO2 50 50 06/07/21 06/07/21 06/07/21 06/07/21 06:00 06:53 07:00 07:00 Pulse 93 89 86 87 Resp 18 18 B/P (MAP) 104/62 110/59 115/60 Pulse Ox 100 100 O2 Delivery Mechanical Ventilator Mechanical Ventilator O2 Flow Rate 50.00 50.00 06/07/21 06/07/21 06/07/21 06/07/21 07:03 07:40 08:00 08:04 Pulse 76 78 Resp 18 32 B/P (MAP) 108/50 Pulse Ox 100 100 97 O2 Delivery Mechanical Ventilator Mechanical Ventilator O2 Flow Rate 50.00 FiO2 40 40 40 06/07/21 06/07/21 08:10 09:00 Temp 37.1 Pulse 80 Resp 17 B/P (MAP) 105/48 Pulse Ox 100 O2 Delivery Mechanical Ventilator O2 Flow Rate 50.00 06/07/21 00:00 Intake Total 1575 ml Output Total 525 ml Balance 1050 ml Weight (Pounds): 219 Weight (Ounces): 1.0 Weight (Calculated Kilograms): 99.975592 Constitutional: AAO x 3, well-developed, well-nourished Respiratory: No accessory muscle use, No respiratory distress; chest expansion is symmetric, chest is bilaterally symmetric, lungs clear to auscultation Cardiovascular: irregularly irregular; No JVD; S1 and S2 Gastrointestional: soft; No guarding, No audible bowel sounds Extremities: no lower extremity edema bilateral Neurologic/Psychiatric: grossly intact (moves all extremities) Skin: normal color, warm/dry, other (feet chronic redness bilat) Results/Procedures: Labs Laboratory Tests 06/06/21 10:37: Blood Gas Puncture Site R RAD, Blood Gas Patient Temperature 36.5, Arterial Blood pH 7.31*L, Arterial Blood Partial Pressure CO2 39, Arterial Blood Partial Pressure O2 75L, Arterial Blood HCO3 19L, Arterial Blood Total CO2 20.4L, Arterial Blood Oxygen Saturation 96, Arterial Blood Base Excess -6.0L, Eldon Test YES-POS, Blood Gas Ventilator Setting NO, Blood Gas Inspired Oxygen 2 06/06/21 11:14: Glucometer 231H 06/06/21 13:00: Lactic Acid Level 2.03*H 06/06/21 15:19: Glucometer 314H 06/06/21 20:50: Glucometer 264H 06/06/21 22:28: Blood Gas Puncture Site VENOUS, Blood Gas Patient Temperature 37.1, Arterial Blood pH 7.24*L, Arterial Blood Partial Pressure CO2 47H, Arterial Blood Partial Pressure O2 38*L, Arterial Blood HCO3 20L, Arterial Blood Total CO2 20.9L, Arterial Blood Oxygen Saturation 61L, Arterial Blood Base Excess -6.6L, Eldon Test NA, Blood Gas Ventilator Setting YES, Blood Gas Inspired Oxygen 50% 06/06/21 22:55: Glucometer 285H 06/07/21 04:20: Glucometer 293H 06/07/21 04:21: White Blood Count 13.3H, Red Blood Count 3.89, Hemoglobin 11.4L, Hematocrit 36, Mean Corpuscular Volume 93, Mean Corpuscular Hemoglobin 29, Mean Corpuscular Hemoglobin Concent 32, Red Cell Distribution Width 14.3, Platelet Count 175, Mean Platelet Volume 13.1H, Immature Granulocyte % (Auto) 0, Neutrophils (%) (Auto) 86H, Lymphocytes (%) (Auto) 5L, Monocytes (%) (Auto) 9, Eosinophils (%) (Auto) 0, Basophils (%) (Auto) 0, Neutrophils # (Auto) 11.4H, Lymphocytes # (Auto) 0.7L, Monocytes # (Auto) 1.1H, Eosinophils # (Auto) 0.0, Basophils # (Auto) 0.0, Immature Granulocyte # (Auto) 0.1, Sodium Level 126L, Potassium Level 4.9, Chloride Level 101, Carbon Dioxide Level 15L, Anion Gap 10, Blood Urea Nitrogen 11, Creatinine 0.86, Estimat Glomerular Filtration Rate 67, BUN/Creatinine Ratio 13, Glucose Level 302H, Calcium Level 7.5L, Corrected Calcium 8.6, Phosphorus Level 3.3, Magnesium Level 1.7, Total Bilirubin 0.5, Aspartate Amino Transf (AST/SGOT) 15, Alanine Aminotransferase (ALT/SGPT) 20, Alkaline Phosphatase 79, Total Protein 4.8L, Albumin 2.6L, Triglycerides Level 118, Beta-Hydroxybutyrate (Chem panel) 0.80H 06/07/21 04:54: Blood Gas Puncture Site R RADIAL, Blood Gas Patient Temperature 36.4, Arterial Blood pH 7.33*L, Arterial Blood Partial Pressure CO2 34L, Arterial Blood Partial Pressure O2 119H, Arterial Blood HCO3 18L, Arterial Blood Total CO2 18.7L, Arterial Blood Oxygen Saturation 99, Arterial Blood Base Excess -7.3L, Eldon Test YES-POS, Blood Gas Ventilator Setting YES, Blood Gas Inspired Oxygen 50% Microbiology 06/04/21 MRSA Screen - Final, Complete MRSA not isolated A/P: Assessment: SBO with n/v/d - management per surgical services NSTEMI Chronic a-fib - rate controlled - OAC with Eliquis CAD - h/o coronary stent placed 5-6 yrs ago at [facility] (follows with Dr. Craig at [facility]) H/O upper and lower endoscopy on 07-04-[address] Cooper - no active bleeding; gastritis; ext and internal hemorrhoids H/O lap carmelo by Dr. Cooper on 07-04-20 Echocardiogram of 06-29-20 showed LVEF 60-65%. LA mildly dilated. COPD H/O TIA's HTN HLD Fibromyalgia Carotid arterial dz - details unknown Right hip fracture following a non-syncopal fall in May 2020 - Plan: She probably had a small NSTEMI, but it appears best managed conservatively at this time, given that she would need uninterrupted dual antiplatelet therapy if she ends up with coronary intervention. Currently she cannot take such oral agents. Also, I did discuss the invasive option with her and she refuses it For A-fib, continue dilt infusion and sc enoxaparin Monitor lab closely Echocardiogram today Replace electrolytes MELISSA WESTON Jun 06, 2021 09:25
--- NOTE | 2021-06-06 10:18 | Tele-ICU Progress Note ---
Subjective Date Seen by a Provider: Jun 06, 2021 Time Seen by a Provider: 10:18 Sepsis Event Evaluation Height, Weight, BMI Height: 5'63.00" Weight: 219lbs. 1.0oz. 99.630292up; 37.00 BMI Method: Focused Exam Lactate Level 06/04/21 21:37: Lactic Acid Level 1.68 06/06/21 08:30: Lactic Acid Level 2.66*H Lactic Acid Level Laboratory Tests Test 06/06/21 08:30 Lactic Acid Level 2.66 MMOL/L (0.50-2.00) *H Exam Exam Patient acknowledged, consented, and participated in this virtual visit which was conducted using real time audio/video Vital Signs Date Time Temp Pulse Resp B/P (MAP) Pulse Ox O2 Delivery O2 Flow Rate FiO2 06/06/21 10:00 106 28 127/62 97 Nasal Cannula 2.00 06/06/21 09:57 97 Nasal Cannula 2.00 06/06/21 09:00 87 34 105/81 97 Nasal Cannula 2.00 06/06/21 08:00 82 103/85 95 Nasal Cannula 2.00 06/06/21 07:29 36.6 06/06/21 07:00 71 130/69 97 Nasal Cannula 2.00 06/06/21 07:00 99 06/06/21 06:38 96 Nasal Cannula 2.00 06/06/21 06:00 86 28 111/50 96 Nasal Cannula 2.00 06/06/21 05:00 78 27 103/68 96 Nasal Cannula 2.00 06/06/21 04:21 97 Nasal Cannula 2.00 06/06/21 04:00 81 27 126/63 97 Nasal Cannula 2.00 06/06/21 03:00 89 17 118/70 97 Nasal Cannula 2.00 06/06/21 02:45 36.6 Nasal Cannula 2.00 06/06/21 02:00 116 18 135/70 95 Nasal Cannula 2.00 06/06/21 01:00 116 06/06/21 01:00 102 23 140/84 96 Nasal Cannula 2.00 06/06/21 00:00 107 24 142/73 97 Nasal Cannula 2.00 06/05/21 23:28 98 Nasal Cannula 2.00 06/05/21 23:00 36.8 Nasal Cannula 2.00 06/05/21 23:00 106 21 157/106 99 Nasal Cannula 2.00 06/05/21 22:00 99 20 148/95 97 Nasal Cannula 2.00 06/05/21 21:00 84 20 140/79 97 Nasal Cannula 2.00 06/05/21 20:00 97 Nasal Cannula 2.00 06/05/21 20:00 98 26 147/101 97 Nasal Cannula 2.00 06/05/21 19:00 104 06/05/21 19:00 98 14 165/94 99 Nasal Cannula 2.00 06/05/21 19:00 36.4 Nasal Cannula 2.00 06/05/21 18:00 108 25 154/91 100 Nasal Cannula 2.00 06/05/21 17:00 105 21 148/91 93 Nasal Cannula 2.00 06/05/21 16:00 98 Nasal Cannula 2.00 06/05/21 16:00 92 21 140/72 99 Nasal Cannula 2.00 06/05/21 15:00 81 12 152/80 100 Nasal Cannula 2.00 06/05/21 14:48 100 Nasal Cannula 2.00 06/05/21 14:00 93 145/96 92 Nasal Cannula 2.00 06/05/21 13:00 92 17 142/81 93 Nasal Cannula 2.00 06/05/21 12:55 114 06/05/21 12:00 100 Nasal Cannula 2.00 06/05/21 12:00 113 13 151/89 100 Nasal Cannula 2.00 06/05/21 12:00 36.3 06/05/21 11:00 100 35 148/93 94 Nasal Cannula 2.00 06/05/21 10:44 99 Nasal Cannula 2.00 I & O 06/06/21 06:59 Intake Total 2450 ml Output Total 1100 ml Balance 1350 ml Height & Weight Height: 5'63.00" Weight: 219lbs. 1.0oz. 99.316046xb; 37.00 BMI Method: General Appearance: Anxious, Chronically ill Neck: Normal Inspection Respiratory: Lungs Clear, Normal Breath Sounds, No Respiratory Distress Cardiovascular: Normal Peripheral Pulses, Irregularly Irregular Capillary Refill: Less Than 3 Seconds Peripheral Pulses: 2+ Dorsalis Pedis (R), 2+ Left Dors-Pedis (L), 2+ Radial Pulses (R), 2+ Radial Pulses (L) Gastrointestinal: distended (minimally), tenderness (mild diffuse) Extremity: Normal Inspection, Normal Range of Motion Neurologic/Psychiatric: Alert, Oriented x3, Normal Mood/Affect Skin: Normal Color, Warm/Dry Results Lab Laboratory Tests 06/04/21 17:10 06/04/21 19:20 06/04/21 21:37 06/05/21 02:00 06/05/21 05:10 06/05/21 10:30 06/05/21 18:00 06/06/21 00:10 06/06/21 04:50 Assessment/Plan Assessment/Plan (Tele-ICU Physician , Progress Note ) Available chart/ vitals / labs / Images reviewed Video assessment done using teleICU camera, rest of exam as per RN Discussed with RN , EXAM PER RN Events overnight : Afebrile FiO2 - 2l I/O = pos Drips: cardizem gtt Pressors: , hemodynamically stable Consultants: Hospital course: (05/15/21) 85yr old female admitted with SBO, CP with elevated troponin, hyperglycemia, afib rvr A/P DKA- *Insulin drip continue to monitor for resolution of acidosis, AG resolved , replace electrolytes. Continue hydration. Metabolic/ lactic acidois - follow lactate , monitor for BP , ? ischemic bowel and limbs A fib - RVR - rate control with cardizem gtt - AC: fill fose lovenox ( was on eliquis at home ) SBO - as per Sx - refused NG - xr -06/05- lower grade or partial small bowel obstruction Mild hypoxia - on 2 l Lines : right IJ 06/04 (Central Line Necessity Reviewed) Grant: + OG: Nutrition: Analgesia: Anxiety/ delirium VTE Prophylaxis: gita 100 bid Stress Ulcer Prophylaxis: ppi Plans in collaboration with bedside consultants and IM MDs. Discussed with RN to reach out if any questions or concerns A total of 32 minutes of critical care time was devoted to this patient today, required to treat and/or prevent further deterioration of critical care condition ( as above ) . ADALGISA CROCKETT MD Jun 06, 2021 10:18
--- NOTE | 2021-06-06 10:25 | Progress Note - Hospitalist ---
Subjective HPI/CC On Admission Date Seen by Provider: Jun 06, 2021 Time Seen by Provider: 10:00 CC: DKA with small bowel obstruction with afib with RVR HPI: 85 [facility] pt of Madeline Mercado. She has a past medical history of atrial fibrillation on anticoagulation. She presented with abdominal pain found to have a small bowel obstruction. She refused the NG tube. Was found to be in DKA. She was placed on insulin drip. Dr. Thorne consulted for afib with RVR. She has been placed on Lovenox 1mg per kg in the meantime for stroke prophylaxis. She is adamant she doesn't want an NG tube. We will be on alert for any colon perforation that could occur. Subjective/Events-last exam Patient more tachypneic Elevated BNP consistent with volume overload due to aggressive IV fluids for DKA Check meds and labs Family at the bedside Increase abdominal pain Vomiting noted Refusing NG tube Conferred with Dr. Glass who will take her to surgery for exploratory Review of Systems General: Fatigue, Malaise Pulmonary: Dyspnea Gastrointestinal: Abdominal Pain Focused Exam Lactate Level 06/04/21 21:37: Lactic Acid Level 1.68 06/06/21 08:30: Lactic Acid Level 2.66*H 06/06/21 13:00: Lactic Acid Level 2.03*H Lactic Acid Level Objective Exam Vital Signs Vital Signs Date Time Temp Pulse Resp B/P (MAP) Pulse Ox O2 Delivery O2 Flow Rate FiO2 06/07/21 05:00 107 22 96 06/07/21 04:43 50 06/07/21 04:00 Mechanical Ventilator 06/07/21 04:00 36.8 06/07/21 00:00 124/77 50.00 Capillary Refill : Less Than 3 Seconds General Appearance: Anxious, Chronically ill, Mild Distress Respiratory: Accessory Muscle Use, Decreased Breath Sounds, Wheezing Cardiovascular: Tachycardia Neurologic/Psychiatric: Alert, Oriented x3, No Motor/Sensory Deficits, Normal Mood/Affect Results/Procedures Lab Laboratory Tests 06/07/21 04:21 Patient resulted labs reviewed. Imaging: Reviewed Imaging Report Assessment/Plan Assessment and Plan Assess & Plan/Chief Complaint Assessment: Small Bowel Obstruction -Failed conservative therapy and refuses NG tube so we will not do surgery today DKA -Continue protocol NSTEMI - s/p ASAx1 - s/p heparin bolus - cardiology consulted Afib - metop 50 - diltiazem gtt - lovenox - cardiology consulted COPD - duoneb Plan: Take to urgent exploratory surgery Monitor hemoglobin and anticoagulation DKA management Prognosis guarded considering advanced age of 85 MARK PAT DO Jun 06, 2021 10:25
[2021-06-06] MEDS ORDERED: POTASSIUM PHOSPHATE INJ 30 MM in NS (IVPB) 250 ML IV ONE (10:30)
[2021-06-06 10:45] LABS: ABG OXYGEN SATURATION 96 % (94-100); ABG PCO2 39 MMHG (35-45); ABG PO2 75 MMHG (79-93); ABG TCO2 20.4 MMOL/L (21.0-31.0)
[2021-06-06 10:47] LABS: ABG PH 7.31 (7.37-7.43)
[2021-06-06] MEDS: ONDANSETRON 4 MG/2 ML (SDV) Z0FRAN IV PRN (10:47)
[2021-06-06 10:48] LABS: ALLENS TEST YES-POS; INSPIRED O2 2; PATIENT TEMP 36.5; VENTILATOR NO
--- NOTE | 2021-06-06 11:06 | Diagnostic Imaging Report ---
EXAMINATION: Portable erect AP chest at 10:36 a.m. INDICATION: Pneumonia. FINDINGS: The heart is stable in size when compared to the prior exam of 06/04/2021. The alveolar/interstitial pulmonary infiltrates involving both lungs and the small bilateral pleural effusions seen previously are again evident and not significantly changed. The mediastinum is not widened. The osseous structures are intact. The right-sided central venous catheter seems stable in position. IMPRESSION: There is persistent involvement of both lungs by alveolar/interstitial pulmonary infiltrates and small bilateral pleural effusions. Overall, there has been no significant change since the previous study. Dictated by: Dictated on workstation # [id number]
[2021-06-06] MEDS ORDERED: FUROSEMIDE 40 MG/4 ML INJ (LASIX) ONE (13:18)
[2021-06-06] MEDS ORDERED: FUROSEMIDE 40 MG/4 ML INJ (LASIX) IVP ONE (13:30)
[2021-06-06] MEDS ORDERED: inSUlin ASPART (NovoLOG) 1 UNIT/0.01 ML (CHARGE PER UNIT) SC ONE (15:45)
[2021-06-06] MEDS ORDERED: NS IV 500 ML 500 ML IV SCH (17:00)
[2021-06-06] MEDS ORDERED: ROCURONIUM 50 MG/5 ML (ZEMURON) VIAL IV ONE ×2 (17:05→19:40)
[2021-06-06] MEDS ORDERED: ONDANSETRON 4 MG/2 ML (SDV) Z0FRAN ONE (17:05)
[2021-06-06] MEDS ORDERED: LIDOCAINE PF 2% 5 ML (XYLOCAINE) VIAL ONE (17:05)
[2021-06-06] MEDS ORDERED: proPOfol 200 MG/20 ML (DIPRIVAN) VIAL IV ONE (17:05)
[2021-06-06] MEDS ORDERED: fentaNYL INJ 100 MCG/2 ML AMP ONE (17:06)
--- NOTE | 2021-06-06 17:30 | Progress Note - Cardiology ---
Cardiology SOAP Progress Note Subjective: Gen malaise Worsening abd discmfort Nausea and vomiting No cp or palp or syncope Mild shortness of breath Objective: I&O/Vital Signs 06/06/21 06/06/21 06/06/21 06/06/21 06:00 06:38 07:00 07:00 Pulse 86 99 71 Resp 28 B/P (MAP) 111/50 130/69 Pulse Ox 96 96 97 O2 Delivery Nasal Cannula Nasal Cannula Nasal Cannula O2 Flow Rate 2.00 2.00 2.00 06/06/21 06/06/21 06/06/21 06/06/21 07:29 08:00 08:00 09:00 Temp 36.6 Pulse 82 87 Resp 34 B/P (MAP) 103/85 105/81 Pulse Ox 95 97 97 O2 Delivery Nasal Cannula Nasal Cannula Nasal Cannula O2 Flow Rate 2.00 2.00 2.00 06/06/21 06/06/21 06/06/21 06/06/21 09:57 10:00 11:00 12:00 Pulse 106 105 84 Resp 28 12 17 B/P (MAP) 127/62 145/82 138/74 Pulse Ox 97 97 93 95 O2 Delivery Nasal Cannula Nasal Cannula Nasal Cannula Nasal Cannula O2 Flow Rate 2.00 2.00 2.00 2.00 06/06/21 06/06/21 06/06/21 06/06/21 12:00 12:00 13:00 13:00 Temp 36.9 Pulse 67 80 Resp 25 B/P (MAP) 116/57 Pulse Ox 97 95 O2 Delivery Nasal Cannula Nasal Cannula O2 Flow Rate 2.00 2.00 06/06/21 06/06/21 06/06/21 06/06/21 14:00 14:45 15:00 15:41 Temp 36.7 Pulse 67 60 Resp 32 26 B/P (MAP) 113/59 116/59 Pulse Ox 95 96 95 O2 Delivery Nasal Cannula Nasal Cannula Nasal Cannula O2 Flow Rate 2.00 2.00 2.00 06/06/21 06/06/21 06/06/21 15:41 16:00 17:00 Pulse 82 91 Resp 25 B/P (MAP) 96/64 104/67 Pulse Ox 97 94 94 O2 Delivery Nasal Cannula Nasal Cannula Nasal Cannula O2 Flow Rate 2.00 2.00 2.00 06/06/21 00:00 Intake Total 1450 ml Output Total 525 ml Balance 925 ml Weight (Pounds): 219 Weight (Ounces): 1.0 Weight (Calculated Kilograms): 99.048213 Constitutional: AAO x 3, well-developed, well-nourished Respiratory: No accessory muscle use, No respiratory distress; chest expansion is symmetric, chest is bilaterally symmetric, lungs clear to auscultation Cardiovascular: irregularly irregular; No JVD; S1 and S2 Gastrointestional: tender, distended; No audible bowel sounds Extremities: no lower extremity edema bilateral Neurologic/Psychiatric: other (moves all limbs equally) Skin: normal color, warm/dry, other (feet chronic redness bilat) Results/Procedures: Labs Laboratory Tests 06/05/21 18:00: Sodium Level 131L, Potassium Level 3.7, Chloride Level 103, Carbon Dioxide Level 18L, Anion Gap 10, Blood Urea Nitrogen 18, Creatinine 0.80, Estimat Glomerular Filtration Rate 73, BUN/Creatinine Ratio 23, Glucose Level 303H, Calcium Level 7.7L 06/05/21 18:03: Glucometer 284H 06/05/21 19:08: Glucometer 261H 06/05/21 19:46: Glucometer 203H 06/05/21 21:03: Glucometer 158H 06/05/21 22:01: Glucometer 149H 06/05/21 22:57: Glucometer 135H 06/06/21 00:10: Sodium Level 131L, Potassium Level 3.7, Chloride Level 103, Carbon Dioxide Level 19L, Anion Gap 9, Blood Urea Nitrogen 14, Creatinine 0.76, Estimat Glomerular Filtration Rate 78, BUN/Creatinine Ratio 18, Glucose Level 129H, Calcium Level 7.8L 06/06/21 00:16: Glucometer 132H 06/06/21 01:06: Glucometer 142H 06/06/21 02:03: Glucometer 162H 06/06/21 03:00: Glucometer 156H 06/06/21 04:05: Glucometer 166H 06/06/21 04:50: White Blood Count 12.1H, Red Blood Count 4.11, Hemoglobin 12.0, Hematocrit 38, Mean Corpuscular Volume 93, Mean Corpuscular Hemoglobin 29, Mean Corpuscular Hemoglobin Concent 31L, Red Cell Distribution Width 13.9, Platelet Count 184, Mean Platelet Volume 12.4H, Immature Granulocyte % (Auto) 1, Neutrophils (%) (Auto) 83H, Lymphocytes (%) (Auto) 8L, Monocytes (%) (Auto) 9, Eosinophils (%) (Auto) 0, Basophils (%) (Auto) 0, Neutrophils # (Auto) 10.0H, Lymphocytes # (Auto) 1.0, Monocytes # (Auto) 1.1H, Eosinophils # (Auto) 0.0, Basophils # (Auto) 0.0, Immature Granulocyte # (Auto) 0.1, Neutrophils % (Manual) 78, Lymphocytes % (Manual) 7, Monocytes % (Manual) 10, Eosinophils % (Manual) 0, Basophils % (Manual) 0, Band Neutrophils 3, Reactive Lymphocytes 2, Anisocytosis SLIGHT, Sodium Level 128L, Potassium Level 4.2, Chloride Level 102, Carbon Dioxide Level 18L, Anion Gap 8, Blood Urea Nitrogen 12, Creatinine 0.75, Estimat Glomerular Filtration Rate 79, BUN/Creatinine Ratio 16, Glucose Level 176H, Calcium Level 7.5L, Corrected Calcium 8.3L, Phosphorus Level 1.8L, Magnesium Level 1.1*L, Total Bilirubin 0.4, Aspartate Amino Transf (AST/SGOT) 27, Alanine Aminotransferase (ALT/SGPT) 23, Alkaline Phosphatase 83, Lactate Dehydrogenase 192, Total Creatine Kinase 88, B-Type Natriuretic Peptide 839.7H, Total Protein 5.6L, Albumin 3.0L, Beta-Hydroxybutyrate (Chem panel) 0.06, Procalcitonin 0.08 06/06/21 04:53: Glucometer 173H 06/06/21 06:00: Glucometer 189H 06/06/21 06:56: Glucometer 179H 06/06/21 08:25: Glucometer 122H 06/06/21 08:30: Lactic Acid Level 2.66*H 06/06/21 09:33: Glucometer 176H 06/06/21 10:37: Blood Gas Puncture Site R RAD, Blood Gas Patient Temperature 36.5, Arterial Blood pH 7.31*L, Arterial Blood Partial Pressure CO2 39, Arterial Blood Partial Pressure O2 75L, Arterial Blood HCO3 19L, Arterial Blood Total CO2 20.4L, Arterial Blood Oxygen Saturation 96, Arterial Blood Base Excess -6.0L, [place]on Test YES-POS, Blood Gas Ventilator Setting NO, Blood Gas Inspired Oxygen 2 06/06/21 11:14: Glucometer 231H 06/06/21 13:00: Lactic Acid Level 2.03*H 06/06/21 15:19: Glucometer 314H Microbiology 06/04/21 MRSA Screen - Final, Complete MRSA not isolated A/P: Assessment: Acute abdomen, worsening clinically NSTEMI Chronic a-fib - rate controlled - OAC with Eliquis CAD - h/o coronary stent placed 5-6 yrs ago at [facility] (follows with Dr. Craig at [facility]) - Echo on 06/06/21: LVEF 40-45%, anteroseptal hypokinesis, mild MR, PASP 65-70 mmHg COPD H/O TIA's HTN HLD Fibromyalgia Carotid arterial dz - details unknown Right hip fracture following a non-syncopal fall in May 2020 H/o upper and lower endoscopy on 07-04-[address] Cooper - no active bleeding; gastritis; ext and internal hemorrhoids H/o lap carmelo by Dr. Cooper on 07-04-20 Plan: She needs emergency surgery because of worsening acute abdomen. Cardiac risk is high. I discussed this with her and her family. They understand and wish to proceed Low-dose iv Lasix now, given elevated BNP an pulm htn and clinically decompensated CHF Continue conservative management of NSTEMI For A-fib, continue dilt infusion and sc enoxaparin Monitor lab closely Replace electrolytes as needed MICHELLE BREWER MD FACP [facility] Jun 06, 2021 17:30
[2021-06-06] MEDS: LACTATED RINGERS 1,000 ML IV PRN ×2 (17:47→19:10)
[2021-06-06] MEDS ORDERED: SUCCINYLCHOLINE INJ 20 MG/1 ML 10 ML VIAL ONE (18:04)
[2021-06-06] MEDS ORDERED: CLINDAMYCIN 600 MG/4ML (CLEOCIN) VIAL ONE (18:07)
[2021-06-06] MEDS ORDERED: PHENYLEPHRINE 100 MCG/ML 10 ML (ANESTHESIA) SYR ONE (18:20)
[2021-06-06] MEDS ORDERED: BUPIVACAINE 0.5% 30 ML (SENSORCAINE) VIAL ONE (19:58)
[2021-06-06 20:28] VITALS: BP 101/67
--- NOTE | 2021-06-06 20:32 | Progress Note-Post Operative ---
Post-Operative Progess Note Surgeon (s)/Exterior Door Installer (s) Surgeon ELISA ZAMAN DO Exterior Door Installer: Dr. Robles Pre-Operative Diagnosis small bowel obstruction, possible ischemic bowel Post-Operative Diagnosis small bowel obstruction secondary to adhesions. Procedure & Operative Findings Date of Procedure 06/06/21 Procedure Performed/Findings exploratory laparotomy with lysis of adhesions 1 hr 47 min, release of small bowel obstruction appendectomy Anesthesia Type general Estimated Blood Loss Estimated blood loss (mL): minimal Specimens/Packing Specimens Removed appendix ELISA ZAMAN DO Jun 06, 2021 20:32
[2021-06-06 20:40] VITALS: BP 105/35
[2021-06-06] MEDS ORDERED: SEVOFLURANE (ULTANE) 15 ML INHAL SOLN ONE (20:48)
[2021-06-06 20:50] VITALS: BP 105/61
[2021-06-06 21:00] VITALS: BP 114/57
[2021-06-06] MEDS ORDERED: fentaNYL INJ 100 MCG/2 ML AMP IVP ONE (21:00)
[2021-06-06] MEDS ORDERED: ONDANSETRON 4 MG/2 ML (SDV) Z0FRAN IVP PRN (21:00)
[2021-06-06 21:10] VITALS: BP 114/69
[2021-06-06 21:20] VITALS: BP 114/66
--- NOTE | 2021-06-06 21:35 | Diagnostic Imaging Report ---
INDICATION: Endotracheal tube placement. FINDINGS: Endotracheal tube terminates at the level of the clavicular heads. There is a right internal jugular central line terminating within the proximal SVC. Enteric tube extends to the stomach. There is left base consolidation with a left-sided effusion slightly progressed from prior exam. Enlargement of the cardiac silhouette and central pulmonary vascular prominence and congestion are unchanged. IMPRESSION: 1. Interval intubation. Endotracheal tube terminates at the level of the clavicular heads. 2. Internal jugular line is unchanged. Enteric tube now extends to the stomach. 3. Persistent left base consolidation and associated effusion with abnormal prominence of the central pulmonary vascularity suggesting edema and failure. Dictated by: Dictated on workstation # [id number]
[2021-06-06] MEDS: CLINDAMYCIN 600 MG/50 ML IVPB 50 ML IV SCH (21:44)
--- NOTE | 2021-06-06 21:48 | Tele-ICU Consult ---
History of Present Illness History of Present Illness Date Seen by Provider: Jun 06, 2021 Time Seen by Provider: 21:44 History of Present Illness 85 yo F comes back from OR for lysis of adhesions and appencectomy has DM1, was in DKA, also a fib on IV Cardizem On vent AC 18, Vt 400 FiO2 50% Allergies and Home Medications Allergies Coded Allergies: Penicillins (Verified Allergy, Unknown, 03/04/18) codeine (Verified Allergy, Unknown, 03/04/18) levofloxacin (Verified Allergy, Unknown, 03/04/18) meperidine (Verified Allergy, Unknown, 03/04/18) mirabegron (Verified Allergy, Unknown, 03/04/18) morphine (Verified Allergy, Unknown, 03/04/18) oxycodone (Verified Allergy, Unknown, 03/04/18) sitagliptin (Verified Allergy, Unknown, 03/04/18) Home Medications Albuterol Sulfate 1 Puff Puff, 2 PUFF IH Q4H PRN for SHORTNESS OF BREATH, (Reported) Amitriptyline HCl 25 Mg Tablet, 25 MG PO HS, (Reported) Apixaban 5 Mg Tablet, 5 MG PO BID, (Reported) Aspirin 81 Mg Tablet.dr, 81 MG PO HS, (Reported) Calcium Citrate/Vitamin D3 1 Each Tablet, 1 EACH PO DAILY, (Reported) Cranberry Extract/Vit C 1 Each Capsule, 1 EACH PO BID, (Reported) Fluticasone/Vilanterol 1 Each Blst.w.dev, 1 PUFF INH DAILY, (Reported) Gabapentin 300 Mg Capsule, 300 MG PO BID, (Reported) Glimepiride 2 Mg Tablet, 4 MG PO DAILY, (Reported) TAKES 2 (2MG) TABS Insulin Degludec 100 Unit/1 Ml Insuln.pen, 20 UNITS SC HS, (Reported) Lisinopril 20 Mg Tablet, 20 MG PO BID, (Reported) Loratadine 10 Mg Tablet, 10 MG PO DAILY, (Reported) Magnesium Oxide 400 Mg Tablet, 400 MG PO HS, (Reported) Metoprolol Succinate 50 Mg Tab.er.24h, 50 MG PO BID, (Reported) Montelukast Sodium 10 Mg Tablet, 10 MG PO HS, (Reported) Multivitamin 1 Each Tablet, 1 EACH PO DAILY, (Reported) Nitroglycerin 0.4 Mg Tab.subl, 0.4 MG SL UD PRN for CHEST PAIN, (Reported) Ondansetron 4 Mg Tab.rapdis, 4 MG PO Q8H PRN for NAUSEA/VOMITING-1ST LINE, (Reported) Pantoprazole Sodium 40 Mg Tablet.dr, 40 MG PO DAILY, (Reported) Rosuvastatin Calcium 20 Mg Tablet, 20 MG PO DAILY, (Reported) Semaglutide 0.25 Mg/0.2 Ml Pen.injctr, 0.5 MG SQ SUN, (Reported) Spironolactone 25 Mg Tablet, 25 MG PO DAILY, (Reported) Past Medical/Social/Family Hx Patient Social History Marrital Status: single Employed/Student: retired Tobacco Use?: Yes Tobacco type used: Cigarettes Smoking Status: Former Smoker Smokeless Tobacco Frequency: Unknown if Ever Used Use of E-Cig and/or Vaping dev: Unable to obtain Substance use?: No Alcohol Use?: Yes Alcohol Frequency: Once in a while Pt stated abuse/neglect: Unable to obtain Immunizations Up To Date Influenza Vaccine Up-to-Date: Yes; Up-to-Date Tetanus Booster (TDap): More Than 5 Years Hepatitis A: No Hepatitis B: Yes TB Skin Test: Negative Date of Pneumonia Vaccine: Dec 12, 2017 Current Status status: No status: No Advance Directives: No Communicates: Verbally Primary Language: [place] Preferred Spoken Language: [place] Is interpretation needed?: No Implanted or Applied Medical D: None Review of Systems Constitutional: see HPI EENTM: see HPI Respiratory: see HPI Cardiovascular: see HPI Gastrointestinal: see HPI Genitourinary: see HPI Musculoskeletal: see HPI Skin: see HPI Psychiatric/Neurological: See HPI Focused Exam Lactate Level 06/04/21 21:37: Lactic Acid Level 1.68 06/06/21 08:30: Lactic Acid Level 2.66*H 06/06/21 13:00: Lactic Acid Level 2.03*H Height, Weight, BMI Height: 5'63.00" Weight: 219lbs. 1.0oz. 99.014557pj; 37.00 BMI Method: Exam Exam Patient acknowledged, consented, and participated in this virtual visit which was conducted using real time audio/video Vital Signs Date Time Temp Pulse Resp B/P (MAP) Pulse Ox O2 Delivery O2 Flow Rate FiO2 06/06/21 21:20 36.5 18 114/66 (82) 95 Mechanical Ventilator 50 06/06/21 21:20 Mechanical Ventilator 50 06/06/21 21:10 18 114/69 (84) 98 Mechanical Ventilator 50 06/06/21 21:10 Mechanical Ventilator 50 06/06/21 21:00 18 114/57 (76) 97 Mechanical Ventilator 50 06/06/21 20:55 Mechanical Ventilator 50 06/06/21 20:50 18 105/61 (76) 97 Mechanical Ventilator 50 06/06/21 20:40 17 105/35 (58) 99 Mechanical Ventilator 50 06/06/21 20:39 Mechanical Ventilator 50 06/06/21 20:28 37.1 18 101/67 (78) 97 Mechanical Ventilator 50 06/06/21 20:28 Mechanical Ventilator 50 06/06/21 19:00 06/06/21 18:00 06/06/21 17:00 91 104/67 94 Nasal Cannula 2.00 06/06/21 16:00 82 25 96/64 94 Nasal Cannula 2.00 06/06/21 15:41 97 Nasal Cannula 2.00 06/06/21 15:41 36.7 06/06/21 15:00 60 26 116/59 95 Nasal Cannula 2.00 06/06/21 14:45 96 Nasal Cannula 2.00 06/06/21 14:00 67 32 113/59 95 Nasal Cannula 2.00 06/06/21 13:00 80 25 116/57 95 Nasal Cannula 2.00 06/06/21 13:00 67 06/06/21 12:00 97 Nasal Cannula 2.00 06/06/21 12:00 36.9 06/06/21 12:00 84 17 138/74 95 Nasal Cannula 2.00 06/06/21 11:00 105 12 145/82 93 Nasal Cannula 2.00 06/06/21 10:00 106 28 127/62 97 Nasal Cannula 2.00 06/06/21 09:57 97 Nasal Cannula 2.00 06/06/21 09:00 87 34 105/81 97 Nasal Cannula 2.00 06/06/21 08:00 97 Nasal Cannula 2.00 06/06/21 08:00 82 103/85 95 Nasal Cannula 2.00 06/06/21 07:29 36.6 06/06/21 07:00 71 130/69 97 Nasal Cannula 2.00 06/06/21 07:00 99 06/06/21 06:38 96 Nasal Cannula 2.00 06/06/21 06:00 86 28 111/50 96 Nasal Cannula 2.00 06/06/21 05:00 78 27 103/68 96 Nasal Cannula 2.00 06/06/21 04:21 97 Nasal Cannula 2.00 06/06/21 04:00 81 27 126/63 97 Nasal Cannula 2.00 06/06/21 03:00 89 17 118/70 97 Nasal Cannula 2.00 06/06/21 02:45 36.6 Nasal Cannula 2.00 06/06/21 02:00 116 18 135/70 95 Nasal Cannula 2.00 06/06/21 01:00 116 06/06/21 01:00 102 23 140/84 96 Nasal Cannula 2.00 06/06/21 00:00 107 24 142/73 97 Nasal Cannula 2.00 06/05/21 23:28 98 Nasal Cannula 2.00 06/05/21 23:00 36.8 Nasal Cannula 2.00 06/05/21 23:00 106 21 157/106 99 Nasal Cannula 2.00 06/05/21 22:00 99 20 148/95 97 Nasal Cannula 2.00 I & O 06/06/21 07:00 Intake Total 2450 ml Output Total 1100 ml Balance 1350 ml Height & Weight Height: 5'63.00" Weight: 219lbs. 1.0oz. 99.405508ow; 37.00 BMI Method: General Appearance: Anxious, Chronically ill HEENT: PERRL/EOMI, Normal ENT Inspection Neck: Normal Inspection, Non Tender Respiratory: Chest Non Tender, No Accessory Muscle Use, No Respiratory Distress Cardiovascular: No JVD, Irregularly Irregular Capillary Refill: Less Than 3 Seconds Peripheral Pulses: 2+ Dorsalis Pedis (R), 2+ Left Dors-Pedis (L), 2+ Radial Pulses (R), 2+ Radial Pulses (L) Gastrointestinal: distended (minimally), tenderness (mild diffuse) Extremity: Normal Inspection, Normal Range of Motion Neurologic/Psychiatric: Alert, Oriented x3, Normal Mood/Affect Skin: Normal Color, Warm/Dry Lymphatic: No Adenopathy Results Lab Laboratory Tests 06/05/21 02:00 06/05/21 05:10 06/05/21 10:30 2/23/22 18:00 06/06/21 00:10 06/06/21 04:50 Assessment/Plan Assessment/Plan will write orders for vent, sedation and pain also glu needs to better controlled Rome Fox MD Critical Care: Ventilator Management Time spent with patient (mins): 30 CARON FOX MD Jun 06, 2021 21:48
[2021-06-06] MEDS ORDERED: morphine INJ 4 MG/ML 1 ML (VIAL/SYRINGE) IVP PRN (22:00)
[2021-06-06 22:36] LABS: ABG BASE EXCESS -6.6 MMOL/L (-2.5-2.5); ABG OXYGEN SATURATION 61 % (94-100); ABG PCO2 47 MMHG (35-45); ABG TCO2 20.9 MMOL/L (21.0-31.0)
[2021-06-06] MEDS: PROPOFOL DRIP (ICU) 100 ML IV SCH (22:40)
[2021-06-06 22:42] LABS: INSPIRED O2 50%; VENTILATOR YES
[2021-06-06 22:45] LABS: ABG PH 7.24 (7.37-7.43); PATIENT TEMP 37.1
[2021-06-06 22:46] LABS: ABG PO2 38 MMHG (79-93)
[2021-06-07 00:39] VITALS: BP 99/82
[2021-06-07] MEDS: 1/2 NS IV SOLUTION 1,000 ML IV SCH ×6 (01:03→21:07)
[2021-06-07 02:21] VITALS: BP 122/60
[2021-06-07] MEDS: RT-ALBUTEROL/IPRATROPIUM 3 ML (DUONEB) VIAL INH SCH ×6 (02:21→21:33)
[2021-06-07] MEDS: fentaNYL INJ 100 MCG/2 ML AMP IVP PRN ×4 (03:07→19:03)
[2021-06-07 04:32] LABS: BASOPHILS % (AUTO) 0 % (0-10); EOSINOPHILS % (AUTO) 0 % (0-10); HEMATOCRIT 36 % (35-52); HEMOGLOBIN 11.4 g/dL (11.5-16.0); LYMPHOCYTES # (AUTO) 0.7 10^3/uL (1.0-4.0); LYMPHOCYTES % (AUTO) 5 % (12-44); MEAN CORPUSCULAR HEMOGLOBIN 29 pg (25-34); MEAN CORPUSCULAR HGB CONC 32 g/dL (32-36); MEAN CORPUSCULAR VOLUME 93 fL (80-99); MEAN PLATELET VOLUME 13.1 fL (9.0-12.2); MONOCYTES # (AUTO) 1.1 10^3/uL (0.0-1.0); MONOCYTES % (AUTO) 9 % (0-12); NEUTROPHILS # (AUTO) 11.4 10^3/uL (1.8-7.8); NEUTROPHILS % (AUTO) 86 % (42-75); PLATELET COUNT 175 10^3/uL (130-400); WHITE BLOOD COUNT 13.3 10^3/uL (4.3-11.0)
[2021-06-07 04:50] LABS: ALBUMIN 2.6 GM/DL (3.2-4.5)
[2021-06-07 04:51] LABS: POTASSIUM 4.9 MMOL/L (3.6-5.0)
[2021-06-07 04:52] LABS: CALCIUM 7.5 MG/DL (8.5-10.1)
[2021-06-07 04:53] LABS: TOTAL PROTEIN 4.8 GM/DL (6.4-8.2)
[2021-06-07 04:55] LABS: BILIRUBIN,TOTAL 0.5 MG/DL (0.1-1.0)
[2021-06-07 04:56] LABS: PHOSPHORUS 3.3 MG/DL (2.3-4.7)
[2021-06-07 04:57] LABS: CREATININE SERUM 0.86 MG/DL (0.60-1.30)
[2021-06-07 05:00] LABS: MAGNESIUM 1.7 MG/DL (1.6-2.4)
[2021-06-07 05:01] LABS: ABG BASE EXCESS -7.3 MMOL/L (-2.5-2.5); ABG OXYGEN SATURATION 99 % (94-100); ABG PCO2 34 MMHG (35-45); ABG PO2 119 MMHG (79-93); ABG TCO2 18.7 MMOL/L (21.0-31.0)
[2021-06-07 05:03] LABS: ALLENS TEST YES-POS; INSPIRED O2 50%; PATIENT TEMP 36.4; VENTILATOR YES
[2021-06-07 05:04] LABS: ABG PH 7.33 (7.37-7.43)
[2021-06-07] MEDS: inSUlin ASPART (NovoLOG) 1 UNIT/0.01 ML (CHARGE PER UNIT) SC SCH ×3 (05:11→19:03)
[2021-06-07] MEDS: POTASSIUM CL 10MEQ/50ML IVPB 50 ML IV SCH (05:12)
[2021-06-07] MEDS: NS IV 1000 ML 1,000 ML IV SCH ×3 (05:12→19:03)
[2021-06-07] MEDS: KCL 20 MEQ TAB (K-DUR) PO SCH (05:12)
[2021-06-07] MEDS: MAGNESIUM 1 GM/100 ML IVPB 100 ML IV SCH ×3 (05:13→06:15)
[2021-06-07] MEDS: CLINDAMYCIN 600 MG/50 ML IVPB 50 ML IV SCH (05:17)
--- NOTE | 2021-06-07 06:25 | Progress Note - Hospitalist ---
Subjective HPI/CC On Admission Date Seen by Provider: Jun 07, 2021 Time Seen by Provider: 10:00 CC: DKA with small bowel obstruction with afib with RVR HPI: 85 [facility] pt of Madeline Mercado. She has a past medical history of atrial fibrillation on anticoagulation. She presented with abdominal pain found to have a small bowel obstruction. She refused the NG tube. Was found to be in DKA. She was placed on insulin drip. Dr. Thorne consulted for afib with RVR. She has been placed on Lovenox 1mg per kg in the meantime for stroke prophylaxis. She is adamant she doesn't want an NG tube. We will be on alert for any colon perforation that could occur. Subjective/Events-last exam Patient still intubated We will try to extubate today Low level of vent settings so likely will be successful Check meds labs Appreciate Dr. Glass Updated daughter Reviewed imaging Focused Exam Lactate Level 06/06/21 08:30: Lactic Acid Level 2.66*H 06/06/21 13:00: Lactic Acid Level 2.03*H Objective Exam Vital Signs Vital Signs Date Time Temp Pulse Resp B/P (MAP) Pulse Ox O2 Delivery O2 Flow Rate FiO2 06/08/21 04:00 36.5 06/08/21 04:00 97 Nasal Cannula 2.00 06/08/21 01:00 80 06/08/21 01:00 20 129/56 06/07/21 12:00 30 Capillary Refill : Less Than 3 SecondsLess Than 3 Seconds General Appearance: Chronically ill, Obese, Other (Intubated and sedated) Respiratory: Lungs Clear, Normal Breath Sounds Cardiovascular: Regular Rate, Rhythm Neurologic/Psychiatric: Alert, Oriented x3 Results/Procedures Lab Laboratory Tests 06/08/21 05:05 Patient resulted labs reviewed. Imaging: Reviewed Imaging Report Assessment/Plan Assessment and Plan Assess & Plan/Chief Complaint Assessment: Small Bowel Obstruction -Failed conservative therapy and refuses NG tube so we will not do surgery today DKA -Continue protocol NSTEMI - s/p ASAx1 - s/p heparin bolus - cardiology consulted Afib - metop 50 - diltiazem gtt - lovenox - cardiology consulted COPD - duoneb Plan: Take to urgent exploratory surgery Monitor hemoglobin and anticoagulation DKA management Prognosis guarded considering advanced age of 85 06/07/2021: Status post emergent surgery Attempt to extubate Critical Care Ventilator Management MARK PAT DO Jun 07, 2021 06:25
[2021-06-07] MEDS: PROPOFOL DRIP (ICU) 100 ML IV SCH (06:53)
--- NOTE | 2021-06-07 07:02 | Progress Note - Surgery ---
NATO CHANEY 06/07/21 0702: Subjective Date Seen by a Provider: Jun 07, 2021 Time Seen by a Provider: 06:20 Subjective/Events-last exam S/P exploratory laparotomy with lysis of adhesions, release of small bowel obstruction, and incidental appendectomy. Unable to speak with pt, as she is sedated and intubated. Nurse reports that she was alert and oriented earlier this morning, before being given fentanyl for abdominal pain. Pt expressed the desire to not "be tubed" at that time. Her NG tube output was 300mL. Pt has had no flatus or bm. Pt's glucose elevated at 302 this a.m. Review of Systems Unable to obtain, pt intubated and sedated Focused Exam Lactate Level 06/04/21 21:37: Lactic Acid Level 1.68 06/06/21 08:30: Lactic Acid Level 2.66*H 06/06/21 13:00: Lactic Acid Level 2.03*H Respiratory: Lungs Clear, Normal Breath Sounds, No Respiratory Distress Cardiovascular: Irregularly Irregular Peripheral Pulses: 2+ Radial Pulses (R), 2+ Radial Pulses (L) Skin: cool (bilateral feet) Objective Exam Vital Signs Date Time Temp Pulse Resp B/P (MAP) Pulse Ox O2 Delivery O2 Flow Rate FiO2 06/07/21 06:53 89 110/59 06/07/21 06:00 93 18 104/62 100 Mechanical Ventilator 50.00 06/07/21 05:00 107 22 96 06/07/21 05:00 85 20 102/60 100 Mechanical Ventilator 50.00 06/07/21 04:43 50 06/07/21 04:00 97 Mechanical Ventilator 50 06/07/21 04:00 36.8 06/07/21 04:00 95 22 129/82 100 Mechanical Ventilator 50.00 06/07/21 03:00 98 18 107/58 100 Mechanical Ventilator 50.00 06/07/21 02:21 79 19 100 50 06/07/21 02:00 84 18 122/60 100 Mechanical Ventilator 50.00 06/07/21 01:00 68 06/07/21 01:00 76 18 114/48 100 Mechanical Ventilator 50.00 06/07/21 00:43 50 06/07/21 00:39 84 22 100 50 06/07/21 00:00 76 19 124/77 100 Mechanical Ventilator 50.00 06/07/21 00:00 36.4 06/06/21 23:59 97 Mechanical Ventilator 50 06/06/21 23:00 66 17 108/45 100 Mechanical Ventilator 50.00 06/06/21 22:40 74 119/59 06/06/21 22:00 36.1 06/06/21 22:00 60 18 110/54 100 Mechanical Ventilator 50.00 06/06/21 21:20 36.5 18 114/66 (82) 95 Mechanical Ventilator 50 06/06/21 21:20 Mechanical Ventilator 50 06/06/21 21:10 18 114/69 (84) 98 Mechanical Ventilator 50 06/06/21 21:10 Mechanical Ventilator 50 06/06/21 21:00 18 114/57 (76) 97 Mechanical Ventilator 50 06/06/21 21:00 60 18 118/65 96 Mechanical Ventilator 50.00 06/06/21 20:55 Mechanical Ventilator 50 06/06/21 20:50 18 105/61 (76) 97 Mechanical Ventilator 50 06/06/21 20:40 17 105/35 (58) 99 Mechanical Ventilator 50 06/06/21 20:39 Mechanical Ventilator 50 06/06/21 20:30 56 97 50 06/06/21 20:28 37.1 18 101/67 (78) 97 Mechanical Ventilator 50 06/06/21 20:28 Mechanical Ventilator 50 06/06/21 20:28 97 Mechanical Ventilator 50 06/06/21 20:00 61 17 105/61 98 Mechanical Ventilator 50.00 06/06/21 19:00 06/06/21 18:00 06/06/21 17:00 91 104/67 94 Nasal Cannula 2.00 06/06/21 16:00 82 25 96/64 94 Nasal Cannula 2.00 06/06/21 15:41 97 Nasal Cannula 2.00 06/06/21 15:41 36.7 06/06/21 15:00 60 26 116/59 95 Nasal Cannula 2.00 06/06/21 14:45 96 Nasal Cannula 2.00 06/06/21 14:00 67 32 113/59 95 Nasal Cannula 2.00 06/06/21 13:00 80 25 116/57 95 Nasal Cannula 2.00 06/06/21 13:00 67 06/06/21 12:00 97 Nasal Cannula 2.00 06/06/21 12:00 36.9 06/06/21 12:00 84 17 138/74 95 Nasal Cannula 2.00 06/06/21 11:00 105 12 145/82 93 Nasal Cannula 2.00 06/06/21 10:00 106 28 127/62 97 Nasal Cannula 2.00 06/06/21 09:57 97 Nasal Cannula 2.00 06/06/21 09:00 87 34 105/81 97 Nasal Cannula 2.00 06/06/21 08:00 97 Nasal Cannula 2.00 06/06/21 08:00 82 103/85 95 Nasal Cannula 2.00 06/06/21 07:29 36.6 I & O 06/07/21 07:00 Intake Total 2875 ml Output Total 1175 ml Balance 1700 ml General Appearance: Chronically ill Respiratory: No Respiratory Distress, Other (intubated) Cardiovascular: Irregularly Irregular Peripheral Pulses: 2+ Dorsalis Pedis (R), 2+ Left Dors-Pedis (L), 2+ Radial Pulses (R), 2+ Radial Pulses (L) Gastrointestinal: distended Extremity: Other (bilat feet cold; red coloration) Neurologic/Psychiatric: Other (Sedated) Skin: Cool (bilat feet; red coloration) Results Lab Laboratory Tests 06/06/21 08:25: Glucometer 122H 06/06/21 08:30: Lactic Acid Level 2.66*H 06/06/21 09:33: Glucometer 176H 06/06/21 10:37: Blood Gas Puncture Site R RAD, Blood Gas Patient Temperature 36.5, Arterial Blood pH 7.31*L, Arterial Blood Partial Pressure CO2 39, Arterial Blood Partial Pressure O2 75L, Arterial Blood HCO3 19L, Arterial Blood Total CO2 20.4L, Arterial Blood Oxygen Saturation 96, Arterial Blood Base Excess -6.0L, [place]on Test YES-POS, Blood Gas Ventilator Setting NO, Blood Gas Inspired Oxygen 2 06/06/21 11:14: Glucometer 231H 06/06/21 13:00: Lactic Acid Level 2.03*H 06/06/21 15:19: Glucometer 314H 06/06/21 20:50: Glucometer 264H 06/06/21 22:28: Blood Gas Puncture Site VENOUS, Blood Gas Patient Temperature 37.1, Arterial Blood pH 7.24*L, Arterial Blood Partial Pressure CO2 47H, Arterial Blood Partial Pressure O2 38*L, Arterial Blood HCO3 20L, Arterial Blood Total CO2 20.9L, Arterial Blood Oxygen Saturation 61L, Arterial Blood Base Excess -6.6L, Eldon Test NA, Blood Gas Ventilator Setting YES, Blood Gas Inspired Oxygen 50% 06/06/21 22:55: Glucometer 285H 06/07/21 04:20: Glucometer 293H 06/07/21 04:21: White Blood Count 13.3H, Red Blood Count 3.89, Hemoglobin 11.4L, Hematocrit 36, Mean Corpuscular Volume 93, Mean Corpuscular Hemoglobin 29, Mean Corpuscular Hemoglobin Concent 32, Red Cell Distribution Width 14.3, Platelet Count 175, Mean Platelet Volume 13.1H, Immature Granulocyte % (Auto) 0, Neutrophils (%) (Auto) 86H, Lymphocytes (%) (Auto) 5L, Monocytes (%) (Auto) 9, Eosinophils (%) (Auto) 0, Basophils (%) (Auto) 0, Neutrophils # (Auto) 11.4H, Lymphocytes # (Auto) 0.7L, Monocytes # (Auto) 1.1H, Eosinophils # (Auto) 0.0, Basophils # (Auto) 0.0, Immature Granulocyte # (Auto) 0.1, Sodium Level 126L, Potassium Level 4.9, Chloride Level 101, Carbon Dioxide Level 15L, Anion Gap 10, Blood Urea Nitrogen 11, Creatinine 0.86, Estimat Glomerular Filtration Rate 67, BUN/Creatinine Ratio 13, Glucose Level 302H, Calcium Level 7.5L, Corrected Calcium 8.6, Phosphorus Level 3.3, Magnesium Level 1.7, Total Bilirubin 0.5, Aspartate Amino Transf (AST/SGOT) 15, Alanine Aminotransferase (ALT/SGPT) 20, Alkaline Phosphatase 79, Total Protein 4.8L, Albumin 2.6L, Triglycerides Level 118, Beta-Hydroxybutyrate (Chem panel) 0.80H 06/07/21 04:54: Blood Gas Puncture Site R RADIAL, Blood Gas Patient Temperature 36.4, Arterial Blood pH 7.33*L, Arterial Blood Partial Pressure CO2 34L, Arterial Blood Partial Pressure O2 119H, Arterial Blood HCO3 18L, Arterial Blood Total CO2 18.7L, Arterial Blood Oxygen Saturation 99, Arterial Blood Base Excess -7.3L, [place]on Test YES-POS, Blood Gas Ventilator Setting YES, Blood Gas Inspired Oxygen 50% Microbiology 06/04/21 MRSA Screen - Final, Complete MRSA not isolated Assessment/Plan Assessment/Plan Assessment/Plan S/P exploratory laparotomy with lysis of adhesions, release of small bowel obstruction, and incidental appendectomy Hyperglycemia (302 this a.m.) AFib NSTEMI Anticoagulation (Lovenox held postop) Neuropathy (bilateral feet) Intubated; has NG tube Bowel rest Consider extubating today IVFs Continue clindamycin NSTEMI- cardiology consulted, conservative management, Eliquis held Insulin drip for glucose control Monitor labs and vitals DOUG GLASS DO 06/07/21 1055: Subjective Subjective/Events-last exam Intubated and sedated. S/p ex lap lysis of adhesions release of small bowel obstruction appendectomy. Urine approximately .35 ml/kg/hr. Pressures a little soft. Family at bedside. Considering extubation today. Objective Exam General Appearance: Chronically ill, Other (intubated/sedated) HEENT: PERRL/EOMI, Normal ENT Inspection, Other (NG tube/et intubated.) Respiratory: No Respiratory Distress, Other (intubated equal chest rise) Cardiovascular: No JVD, Irregularly Irregular Gastrointestinal: soft, distended (minimal), other (incision clean intact and slight serous drainage.) Extremity: Other (bilat feet cold; red coloration) Neurologic/Psychiatric: No Alert, No Oriented x3; Other (Sedated) Skin: Cool (bilat feet; red coloration) Lymphatic: No Adenopathy Assessment/Plan Assessment/Plan Assessment/Plan S/P exploratory laparotomy with lysis of adhesions, release of small bowel obstruction, and incidental appendectomy Hyperglycemia (302 this a.m.) AFib NSTEMI Anticoagulation (Lovenox held postop) Neuropathy (bilateral feet) Intubated; has NG tube Bowel rest NG Tube to LIWS Consider extubating today IVFs will do 500 mL NS bolus since pressures soft and urine output low Continue clindamycin total two doses postop NSTEMI- cardiology consulted, conservative management, Eliquis held Insulin drip for glucose control Monitor labs and vitals Hold lovenox can restart tomorrow if hgb stable. Supervisory-Addendum Brief Verification & Attestation Participated in pt care: history, MDM, physical Personally performed: exam, history, MDM, supervision of care Care discussed with: Medical Student Procedures: n/a Results interpretation: Verified all documentation Verification and Attestation of Medical Student E/M Service A medical student performed and documented this service in my presence. I re viewed and verified all information documented by the medical student and made modifications to such information, when appropriate. I personally performed the physical exam and medical decision making. Doug Glass, Jun 07, 2021,11:00 NATO CHANEY Jun 07, 2021 07:02 DOUG GLASS DO Jun 07, 2021 10:55
[2021-06-07 07:03] VITALS: BP 115/60
--- NOTE | 2021-06-07 07:36 | Tele-ICU Progress Note ---
Subjective Date Seen by a Provider: Jun 07, 2021 Time Seen by a Provider: 07:35 Subjective/Events-last exam This patient who admitted with a DKA and small bowel obstruction underwent exploratory laparotomy and lysis of adhesions yesterday post operatively she remained on mechanical ventilation. When the sedation vacation is given she is arousable and following simple commands. Hemodynamically stable. We will try her on SBT today and see whether we could extubate. Video visit made and discussed with the OPERATIONS MANAGER/COORDINATOR. Review of Systems ROS PER RN Sepsis Event Evaluation Height, Weight, BMI Height: 5'63.00" Weight: 219lbs. 1.0oz. 99.007293ow; 37.00 BMI Method: Focused Exam Lactate Level 06/04/21 21:37: Lactic Acid Level 1.68 06/06/21 08:30: Lactic Acid Level 2.66*H 06/06/21 13:00: Lactic Acid Level 2.03*H Exam Exam Patient acknowledged, consented, and participated in this virtual visit which was conducted using real time audio/video Vital Signs Date Time Temp Pulse Resp B/P (MAP) Pulse Ox O2 Delivery O2 Flow Rate FiO2 06/07/21 07:03 76 18 100 40 06/07/21 06:53 89 110/59 06/07/21 06:00 93 18 104/62 100 Mechanical Ventilator 50.00 06/07/21 05:00 107 22 96 06/07/21 05:00 85 20 102/60 100 Mechanical Ventilator 50.00 06/07/21 04:43 50 06/07/21 04:00 97 Mechanical Ventilator 50 06/07/21 04:00 36.8 06/07/21 04:00 95 22 129/82 100 Mechanical Ventilator 50.00 06/07/21 03:00 98 18 107/58 100 Mechanical Ventilator 50.00 06/07/21 02:21 79 19 100 50 06/07/21 02:00 84 18 122/60 100 Mechanical Ventilator 50.00 06/07/21 01:00 68 06/07/21 01:00 76 18 114/48 100 Mechanical Ventilator 50.00 06/07/21 00:43 50 06/07/21 00:39 84 22 100 50 06/07/21 00:00 76 19 124/77 100 Mechanical Ventilator 50.00 06/07/21 00:00 36.4 06/06/21 23:59 97 Mechanical Ventilator 50 06/06/21 23:00 66 17 108/45 100 Mechanical Ventilator 50.00 06/06/21 22:40 74 119/59 06/06/21 22:00 36.1 06/06/21 22:00 60 18 110/54 100 Mechanical Ventilator 50.00 06/06/21 21:20 36.5 18 114/66 (82) 95 Mechanical Ventilator 50 06/06/21 21:20 Mechanical Ventilator 50 06/06/21 21:10 18 114/69 (84) 98 Mechanical Ventilator 50 06/06/21 21:10 Mechanical Ventilator 50 06/06/21 21:00 18 114/57 (76) 97 Mechanical Ventilator 50 06/06/21 21:00 60 18 118/65 96 Mechanical Ventilator 50.00 06/06/21 20:55 Mechanical Ventilator 50 06/06/21 20:50 18 105/61 (76) 97 Mechanical Ventilator 50 06/06/21 20:40 17 105/35 (58) 99 Mechanical Ventilator 50 06/06/21 20:39 Mechanical Ventilator 50 06/06/21 20:30 56 97 50 06/06/21 20:28 37.1 18 101/67 (78) 97 Mechanical Ventilator 50 06/06/21 20:28 Mechanical Ventilator 50 06/06/21 20:28 97 Mechanical Ventilator 50 06/06/21 20:00 61 17 105/61 98 Mechanical Ventilator 50.00 06/06/21 19:00 06/06/21 18:00 06/06/21 17:00 91 104/67 94 Nasal Cannula 2.00 06/06/21 16:00 82 25 96/64 94 Nasal Cannula 2.00 06/06/21 15:41 97 Nasal Cannula 2.00 06/06/21 15:41 36.7 06/06/21 15:00 60 26 116/59 95 Nasal Cannula 2.00 06/06/21 14:45 96 Nasal Cannula 2.00 06/06/21 14:00 67 32 113/59 95 Nasal Cannula 2.00 06/06/21 13:00 80 25 116/57 95 Nasal Cannula 2.00 06/06/21 13:00 67 06/06/21 12:00 97 Nasal Cannula 2.00 06/06/21 12:00 36.9 06/06/21 12:00 84 17 138/74 95 Nasal Cannula 2.00 06/06/21 11:00 105 12 145/82 93 Nasal Cannula 2.00 06/06/21 10:00 106 28 127/62 97 Nasal Cannula 2.00 06/06/21 09:57 97 Nasal Cannula 2.00 06/06/21 09:00 87 34 105/81 97 Nasal Cannula 2.00 06/06/21 08:00 97 Nasal Cannula 2.00 06/06/21 08:00 82 103/85 95 Nasal Cannula 2.00 I & O 06/07/21 06:59 Intake Total 2875 ml Output Total 1175 ml Balance 1700 ml Height & Weight Height: 5'63.00" Weight: 219lbs. 1.0oz. 99.032497vx; 37.00 BMI Method: General Appearance: Chronically ill Respiratory: No Respiratory Distress, Other (intubated) Cardiovascular: Irregularly Irregular Capillary Refill: Less Than 3 Seconds Peripheral Pulses: 2+ Dorsalis Pedis (R), 2+ Left Dors-Pedis (L), 2+ Radial Pulses (R), 2+ Radial Pulses (L) Gastrointestinal: distended Extremity: Other (bilat feet cold; red coloration) Neurologic/Psychiatric: Other (Sedated) Skin: Cool (bilat feet; red coloration) Other comments PE PER RN Results Lab Laboratory Tests 06/05/21 10:30 06/05/21 18:00 06/06/21 00:10 06/06/21 04:50 06/07/21 04:21 Assessment/Plan Assessment/Plan 1. Postoperative pulmonary insufficiency on mechanical ventilation. 2. Small bowel obstruction status post exploratory laparotomy and lysis of adhesions 3. Diabetic ketoacidosis improving 4. Hyponatremia 5. Non-STEMI, cardiology on the case. 6. Atrial fibrillation, cardiology on the case. 7. COPD clinically stable. Recommendations 1. We will try her on spontaneous breathing trial and see whether we could extubate her 2. Continue IV fluids with normal saline 3. Atrial fibrillation management per cardiology 4. Diabetes management per primary care. 5. Non-STEMI management per cardiology. 6. DVT prophylaxis and ulcer prophylaxis. 7. Postoperative surgical management for general surgery. Critical Care: Ventilator Management Time spent with patient (mins): 35 JIMMY REILLY MD Jun 07, 2021 07:35
[2021-06-07] MEDS: PANTOPRAZOLE 40 MG (PROTONIX) VIAL IV SCH (08:38)
--- NOTE | 2021-06-07 09:56 | Progress Note - Cardiology ---
Cardiology SOAP Progress Note Subjective: Intubated and sedated Objective: I&O/Vital Signs 06/09/21 06/09/21 06/09/21 06/09/21 21:00 22:00 22:01 23:00 Pulse 106 108 118 Resp 19 20 24 B/P (MAP) 170/67 131/58 128/72 Pulse Ox 98 95 95 96 O2 Delivery Nasal Cannula Nasal Cannula Nasal Cannula Nasal Cannula O2 Flow Rate 2.00 2.00 2.00 2.00 06/09/21 06/10/21 06/10/21 06/10/21 23:55 00:00 00:37 01:00 Pulse 107 121 118 Resp 19 B/P (MAP) 141/96 164/94 Pulse Ox 93 97 97 O2 Delivery Nasal Cannula Nasal Cannula Nasal Cannula O2 Flow Rate 2.00 2.00 2.00 06/10/21 06/10/21 06/10/21 06/10/21 02:00 02:31 03:00 03:10 Pulse 116 123 Resp 15 18 B/P (MAP) 135/50 145/79 Pulse Ox 94 92 97 96 O2 Delivery Nasal Cannula Nasal Cannula Nasal Cannula Nasal Cannula O2 Flow Rate 2.00 3.00 2.00 2.00 06/10/21 06/10/21 06/10/21 06/10/21 04:00 05:00 06:00 07:00 Pulse 114 112 137 127 Resp B/P (MAP) 147/92 137/77 135/101 Pulse Ox 95 92 90 O2 Delivery Nasal Cannula Nasal Cannula Nasal Cannula O2 Flow Rate 2.00 2.00 2.00 06/10/21 06/10/21 07:25 07:53 Temp 36.7 Pulse Ox 93 O2 Delivery Nasal Cannula O2 Flow Rate 3.00 06/10/21 00:00 Intake Total 1400 ml Output Total 2000 ml Balance -600 ml Weight (Pounds): 219 Weight (Ounces): 1.0 Weight (Calculated Kilograms): 99.094232 Constitutional: well-developed, well-nourished, other (intubated and sedated) Respiratory: No accessory muscle use, No respiratory distress; chest expansion is symmetric, chest is bilaterally symmetric, lungs clear to auscultation Cardiovascular: irregularly irregular; No JVD; S1 and S2 Gastrointestional: No audible bowel sounds; other (s/p abdominal surgery ) Extremities: no lower extremity edema bilateral Neurologic/Psychiatric: other (sedated) Skin: cool (bilateral feet) Results/Procedures: Labs Laboratory Tests 06/09/21 11:25: Glucometer 216H 06/09/21 17:40: Glucometer 156H 06/10/21 00:22: Glucometer 182H 06/10/21 02:56: White Blood Count 11.9H, Red Blood Count 3.32L, Hemoglobin 9.5L, Hematocrit 32L, Mean Corpuscular Volume 97, Mean Corpuscular Hemoglobin 29, Mean Corpuscular Hemoglobin Concent 30L, Red Cell Distribution Width 14.7H, Platelet Count 182, Mean Platelet Volume 12.2, Immature Granulocyte % (Auto) 1, Neutrophils (%) (Auto) 83H, Lymphocytes (%) (Auto) 5L, Monocytes (%) (Auto) 8, Eosinophils (%) (Auto) 2, Basophils (%) (Auto) 0, Neutrophils # (Auto) 9.9H, Lymphocytes # (Auto) 0.7L, Monocytes # (Auto) 1.0, Eosinophils # (Auto) 0.3, Basophils # (Auto) 0.1, Immature Granulocyte # (Auto) 0.1, Sodium Level 139, Potassium Level 3.6, Chloride Level 105, Carbon Dioxide Level 21, Anion Gap 13, Blood Urea Nitrogen 16, Creatinine 0.93, Estimat Glomerular Filtration Rate 61, BUN/Creatinine Ratio 17, Glucose Level 193H, Calcium Level 8.5, Corrected Calcium 9.4, Phosphorus Level 2.3, Magnesium Level 1.4L, Total Bilirubin 0.4, Aspartate Amino Transf (AST/SGOT) 9, Alanine Aminotransferase (ALT/SGPT) 14, Alkaline Phosphatase 76, Total Protein 5.3L, Albumin 2.9L, Beta-Hydroxybutyrate (Chem panel) 1.08H 06/10/21 05:35: Glucometer 208H 06/10/21 05:45: Blood Gas Puncture Site RIGHT RADIAL, Blood Gas Patient Temperature 37.1, Arterial Blood pH 7.30*L, Arterial Blood Partial Pressure CO2 55H, Arterial Blood Partial Pressure O2 93, Arterial Blood HCO3 26, Arterial Blood Total CO2 27.4, Arterial Blood Oxygen Saturation 98, Arterial Blood Base Excess 0.0, [place]on Test YES-POS, Blood Gas Ventilator Setting NO, Blood Gas Inspired Oxygen 2L NC Microbiology 06/06/21 Blood Culture - Preliminary, Resulted No growth 06/04/21 MRSA Screen - Final, Complete MRSA not isolated A/P: Assessment: S/P abdominal surgery on 06-06-[address] Glass - exploratory laparotomy with lysis of adhesions, release of small bowel obstruction, appendectomy NSTEMI - conservative management Chronic a-fib - rate controlled - OAC with Eliquis CAD - h/o coronary stent placed 5-6 yrs ago at [facility] (follows with Dr. Craig at [facility]) - Echo on 06/06/21: LVEF 40-45%, anteroseptal hypokinesis, mild MR, PASP 65-70 mmHg COPD H/O TIA's HTN HLD Fibromyalgia Carotid arterial dz - details unknown Right hip fracture following a non-syncopal fall in May 2020 H/o upper and lower endoscopy on 07-04-[address] Cooper - no active bleeding; gastritis; ext and internal hemorrhoids H/o lap carmelo by Dr. Cooper on 07-04-20 Plan: S/P abdominal surgery on 06-06-21 Continue conservative management of NSTEMI For A-fib, continue dilt infusion and sc enoxaparin Monitor lab closely Replace electrolytes as needed MELISSA WESTON Jun 07, 2021 09:56
[2021-06-07] MEDS: ENOXAPARIN 100 MG/1 ML (LOVENOX) SYR SC SCH ×2 (10:28→17:18)
[2021-06-07] MEDS ORDERED: NS IV 1000 ML 500 ML IV ONE (10:30)
[2021-06-07 10:39] VITALS: BP 105/58
[2021-06-07 12:45] LABS: ABG OXYGEN SATURATION 97 % (94-100); ABG PCO2 37 MMHG (35-45); ABG PO2 85 MMHG (79-93); ABG TCO2 19.9 MMOL/L (21.0-31.0)
[2021-06-07 12:50] LABS: ABG PH 7.33 (7.37-7.43); INSPIRED O2 30%; PATIENT TEMP 37.1; VENTILATOR YES
[2021-06-07] MEDS: SODIUM BICARB 8.4% 50 MEQ/50 ML VIAL IV SCH (13:15)
[2021-06-07] MEDS ORDERED: SODIUM BICARB 8.4% 50 MEQ/50 ML (ABBOTT) SYR IV ONE (13:15)
--- NOTE | 2021-06-07 13:32 | Anesthesia-General Post-Op ---
General Significant Intra-Op Events Notes on vent. on a breathing trial. vss. Patient Condition Cardiovascular: Satisfactory Nausea/Vomiting: Absent Respiratory: Unsatisfactory Pain: Controlled Post Op Complications Complications None Follow Up Care/Instructions Patient Instructions None needed. Anesthesia/Patient Condition Patient Condition Patient is doing well, no complaints, stable vital signs, no apparent adverse anesthesia problems. No complications reported per nursing. ALY FRANZ CRNA Jun 07, 2021 13:32
--- NOTE | 2021-06-07 15:52 | Progress Note - Cardiology ---
Cardiology SOAP Progress Note Subjective: [facility] Not able to communicate Objective: I&O/Vital Signs 06/07/21 06/07/21 06/07/21 06/07/21 04:00 04:00 04:00 04:43 Temp 36.8 Pulse 95 Resp 22 B/P (MAP) 129/82 Pulse Ox 100 97 O2 Delivery Mechanical Ventilator Mechanical Ventilator O2 Flow Rate 50.00 FiO2 50 50 06/07/21 06/07/21 06/07/21 06/07/21 05:00 05:00 06:00 06:53 Pulse 85 107 93 89 Resp 20 22 18 B/P (MAP) 102/60 104/62 110/59 Pulse Ox 100 96 100 O2 Delivery Mechanical Ventilator Mechanical Ventilator O2 Flow Rate 50.00 50.00 06/07/21 06/07/21 06/07/21 06/07/21 07:00 07:00 07:03 07:40 Pulse 86 87 76 Resp 18 18 B/P (MAP) 115/60 Pulse Ox 100 100 O2 Delivery Mechanical Ventilator O2 Flow Rate 50.00 FiO2 40 40 06/07/21 06/07/21 06/07/21 06/07/21 08:00 08:04 08:10 09:00 Temp 37.1 Pulse 78 80 Resp 32 17 B/P (MAP) 108/50 105/48 Pulse Ox 100 97 100 O2 Delivery Mechanical Ventilator Mechanical Ventilator Mechanical Ventilator O2 Flow Rate 50.00 50.00 FiO2 40 06/07/21 06/07/21 06/07/21 06/07/21 10:00 10:39 11:00 12:00 Pulse 85 88 114 133 Resp 18 18 17 24 B/P (MAP) 99/42 120/57 123/72 Pulse Ox 100 100 100 99 O2 Delivery Mechanical Ventilator Mechanical Ventilator Mechanical Ventilator O2 Flow Rate 50.00 50.00 50.00 FiO2 30 06/07/21 06/07/21 06/07/21 06/07/21 12:00 12:11 12:51 13:00 Temp 37.3 Pulse 112 118 Resp 28 B/P (MAP) 102/50 Pulse Ox 99 O2 Delivery Nasal Cannula O2 Flow Rate 2.00 FiO2 30 06/07/21 06/07/21 06/07/21 06/07/21 14:00 15:00 15:11 15:42 Temp 37.1 Pulse 121 118 Resp 24 16 B/P (MAP) 144/62 106/52 Pulse Ox 91 100 96 O2 Delivery Nasal Cannula Nasal Cannula Nasal Cannula O2 Flow Rate 2.00 2.00 2.00 06/06/21 23:59 Intake Total 1575 ml Output Total 525 ml Balance 1050 ml Weight (Pounds): 219 Weight (Ounces): 1.0 Weight (Calculated Kilograms): 99.462232 Constitutional: well-developed, well-nourished, other (intubated and sedated) Respiratory: No accessory muscle use, No respiratory distress; chest expansion is symmetric, chest is bilaterally symmetric, lungs clear to auscultation Cardiovascular: irregularly irregular; No JVD; S1 and S2 Gastrointestional: No audible bowel sounds; other (s/p abdominal surgery ) Extremities: no lower extremity edema bilateral Neurologic/Psychiatric: other (sedated) Skin: cool (bilateral feet) Results/Procedures: Labs Laboratory Tests 06/06/21 20:50: Glucometer 264H 06/06/21 22:28: Blood Gas Puncture Site VENOUS, Blood Gas Patient Temperature 37.1, Arterial Blood pH 7.24*L, Arterial Blood Partial Pressure CO2 47H, Arterial Blood Partial Pressure O2 38*L, Arterial Blood HCO3 20L, Arterial Blood Total CO2 20.9L, Arterial Blood Oxygen Saturation 61L, Arterial Blood Base Excess -6.6L, Eldon Test NA, Blood Gas Ventilator Setting YES, Blood Gas Inspired Oxygen 50% 06/06/21 22:55: Glucometer 285H 06/07/21 04:20: Glucometer 293H 06/07/21 04:21: White Blood Count 13.3H, Red Blood Count 3.89, Hemoglobin 11.4L, Hematocrit 36, Mean Corpuscular Volume 93, Mean Corpuscular Hemoglobin 29, Mean Corpuscular Hemoglobin Concent 32, Red Cell Distribution Width 14.3, Platelet Count 175, Mean Platelet Volume 13.1H, Immature Granulocyte % (Auto) 0, Neutrophils (%) (Auto) 86H, Lymphocytes (%) (Auto) 5L, Monocytes (%) (Auto) 9, Eosinophils (%) (Auto) 0, Basophils (%) (Auto) 0, Neutrophils # (Auto) 11.4H, Lymphocytes # (Auto) 0.7L, Monocytes # (Auto) 1.1H, Eosinophils # (Auto) 0.0, Basophils # (Auto) 0.0, Immature Granulocyte # (Auto) 0.1, Sodium Level 126L, Potassium Level 4.9, Chloride Level 101, Carbon Dioxide Level 15L, Anion Gap 10, Blood Urea Nitrogen 11, Creatinine 0.86, Estimat Glomerular Filtration Rate 67, BUN/Creatinine Ratio 13, Glucose Level 302H, Calcium Level 7.5L, Corrected Calcium 8.6, Phosphorus Level 3.3, Magnesium Level 1.7, Total Bilirubin 0.5, Aspartate Amino Transf (AST/SGOT) 15, Alanine Aminotransferase (ALT/SGPT) 20, Alkaline Phosphatase 79, Total Protein 4.8L, Albumin 2.6L, Triglycerides Level 118, Beta-Hydroxybutyrate (Chem panel) 0.80H 06/07/21 04:54: Blood Gas Puncture Site R RADIAL, Blood Gas Patient Temperature 36.4, Arterial Blood pH 7.33*L, Arterial Blood Partial Pressure CO2 34L, Arterial Blood Partial Pressure O2 119H, Arterial Blood HCO3 18L, Arterial Blood Total CO2 18.7L, Arterial Blood Oxygen Saturation 99, Arterial Blood Base Excess -7.3L, Eldon Test YES-POS, Blood Gas Ventilator Setting YES, Blood Gas Inspired Oxygen 50% 06/07/21 11:31: Glucometer 234H 06/07/21 12:35: Blood Gas Puncture Site LEFT RADIAL, Blood Gas Patient Temperature 37.1, Arterial Blood pH 7.33*L, Arterial Blood Partial Pressure CO2 37, Arterial Blood Partial Pressure O2 85, Arterial Blood HCO3 19L, Arterial Blood Total CO2 19.9L, Arterial Blood Oxygen Saturation 97, Arterial Blood Base Excess -6.0L, Eldon Test NA, Blood Gas Ventilator Setting YES, Blood Gas Inspired Oxygen 30% Microbiology 06/04/21 MRSA Screen - Final, Complete MRSA not isolated A/P: Assessment: S/P abdominal surgery on 06-06-[address] Glass - exploratory laparotomy with lysis of adhesions, release of small bowel obstruction, appendectomy Recent NSTEMI - conservative management Chronic a-fib - rate controlled - OAC with Eliquis CAD - h/o coronary stent placed 5-6 yrs ago at [facility] (follows with Dr. Craig at [facility]) - Echo on 06/06/21: LVEF 40-45%, anteroseptal hypokinesis, mild MR, PASP 65-70 mmHg COPD H/O TIA's HTN HLD Fibromyalgia Carotid arterial dz - details unknown Right hip fracture following a non-syncopal fall in May 2020 H/o upper and lower endoscopy on 07-04-[address] Cooper - no active bleeding; gastritis; ext and internal hemorrhoids H/o lap carmelo by Dr. Cooper on 07-04-20 Plan: Complex management due to multiple comorbidities Continue conservative management of NSTEMI For A-fib, continue dilt infusion and sc enoxaparin Monitor lab closely Replace electrolytes as needed MICHELLE BREWER MD FACP FACC CCDS Jun 07, 2021 15:52
[2021-06-07] MEDS: dilTIAZem DRIP PRE-MIX 125 ML IV SCH (16:42)
--- NOTE | 2021-06-07 21:31 | OPERATIVE REPORT ---
DATE OF SERVICE: 06/06/2021 PREOPERATIVE DIAGNOSIS: Small bowel obstruction, possible ischemic bowel. POSTOPERATIVE DIAGNOSIS: Small-bowel obstruction secondary to adhesions. PROCEDURE: Exploratory laparotomy with lysis of adhesions, 1 hour 47 minutes. Release of small bowel obstruction, appendectomy. SURGEON: Elisa Glass DO PRINT SUPPORT SPECIALIST: Dr. Robles, assisted in retraction, dissection and closure and identification of anatomy. ANESTHESIA: General. ESTIMATED BLOOD LOSS: Minimal. COMPLICATIONS: None. INDICATIONS: The patient is an 85-year-old female who was admitted for small bowel obstruction. The patient had worsening abdominal pain where there was concern for possible ischemic bowel. Risks and benefits were discussed with the patient and family and they all understand that she has higher risk due to also NSTEMI. She is also anticoagulated on Lovenox 100 mg b.i.d. Due to the concern of possible ischemic bowel, felt it was necessary to take her to the operating room for exploratory laparotomy. The patient and family understands risks and benefits. DESCRIPTION OF PROCEDURE: The patient was taken to the operating suite. She was prepped and draped in sterile fashion. Surgical pause was performed. A #10 blade was used to make a midline incision. Cautery was used to dissect down to the fascia, which was then scored and opened. was then inspected, multiple adhesions present. Dilated loops of small bowel present. The small bowel along with adhesions started began taken down with both cautery and blunt dissection. As the bowel was continued to be freed, continued to make progress. The cecum was finally able to be visualized, which was encased in a lot of adhesions. The appendix was also present. The appendix was dissected around and the mesoappendix was divided. A clamp was then placed on the mesoappendix and tied off with 3-0 silk suture. The base of the appendix had two sutures was tied off in two locations at the base of the appendix using 3-0 silk suture and the appendix was removed. From the cecum, the small bowel was then ran along with continuing to remove adhesions continuously until the small bowel was able to be ran from the cecum proximally was all decompressed small bowel until it came to a spot the small bowel that was folded due to adhesions. This was released and proximal to this area was dilated. Small bowel was then continued to be ran all the way to the ligament of Treitz after all adhesions had been removed. The small bowel was then ran from the ligament of Treitz all the way to cecum without any other findings. No other pathology noted. The abdomen was then irrigated with copious amounts of irrigation and suction. The fascia was then closed using 1-0 looped PDS. The skin was then closed with janie. The area was then washed, and dried and sterile bandages were applied. The patient tolerated procedure well without any complications. She was taken to recovery room in stable condition. She was left on the ventilator. CC: Madeline Jess - requested, unable to deliver Job ID: [id number] DocumentID: [id number] Dictated Date: 06/07/2021 18:02:14 Retail Planning Manager Date: 06/07/2021 21:31:18 Dictated By: ELISA GLASS DO
[2021-06-08] MEDS: dilTIAZem DRIP PRE-MIX 125 ML IV SCH (00:30)
[2021-06-08] MEDS: inSUlin ASPART (NovoLOG) 1 UNIT/0.01 ML (CHARGE PER UNIT) SC SCH ×4 (00:30→18:09)
[2021-06-08] MEDS: fentaNYL INJ 100 MCG/2 ML AMP IVP PRN ×8 (00:42→23:29)
[2021-06-08] MEDS: 1/2 NS IV SOLUTION 1,000 ML IV SCH ×4 (01:30→15:10)
[2021-06-08] MEDS: RT-ALBUTEROL/IPRATROPIUM 3 ML (DUONEB) VIAL INH SCH ×6 (02:09→21:41)
[2021-06-08] MEDS: NS IV 1000 ML 1,000 ML IV SCH ×3 (03:10→20:45)
[2021-06-08 05:20] LABS: BASOPHILS % (AUTO) 0 % (0-10); MEAN CORPUSCULAR HGB CONC 31 g/dL (32-36)
[2021-06-08 05:22] LABS: EOSINOPHILS % (AUTO) 0 % (0-10); HEMATOCRIT 33 % (35-52); HEMOGLOBIN 10.2 g/dL (11.5-16.0); LYMPHOCYTES # (AUTO) 0.9 10^3/uL (1.0-4.0); LYMPHOCYTES % (AUTO) 6 % (12-44); MEAN CORPUSCULAR HEMOGLOBIN 29 pg (25-34); MEAN CORPUSCULAR VOLUME 94 fL (80-99); MEAN PLATELET VOLUME 13.1 fL (9.0-12.2); MONOCYTES # (AUTO) 1.3 10^3/uL (0.0-1.0); MONOCYTES % (AUTO) 9 % (0-12); NEUTROPHILS # (AUTO) 12.5 10^3/uL (1.8-7.8); NEUTROPHILS % (AUTO) 84 % (42-75); PLATELET COUNT 162 10^3/uL (130-400); WHITE BLOOD COUNT 14.9 10^3/uL (4.3-11.0)
[2021-06-08 05:38] LABS: ALBUMIN 2.5 GM/DL (3.2-4.5); POTASSIUM 4.9 MMOL/L (3.6-5.0)
[2021-06-08 05:39] LABS: CALCIUM 7.7 MG/DL (8.5-10.1)
[2021-06-08 05:41] LABS: TOTAL PROTEIN 4.8 GM/DL (6.4-8.2)
[2021-06-08 05:42] LABS: BILIRUBIN,TOTAL 0.3 MG/DL (0.1-1.0)
[2021-06-08 05:44] LABS: CREATININE SERUM 0.96 MG/DL (0.60-1.30)
[2021-06-08 05:48] LABS: MAGNESIUM 2.1 MG/DL (1.6-2.4)
[2021-06-08] MEDS: POTASSIUM CL 10MEQ/50ML IVPB 50 ML IV SCH (05:51)
[2021-06-08] MEDS: MAGNESIUM 1 GM/100 ML IVPB 100 ML IV SCH (05:51)
[2021-06-08] MEDS: KCL 20 MEQ TAB (K-DUR) PO SCH (05:52)
--- NOTE | 2021-06-08 07:37 | Progress Note - Hospitalist ---
Subjective HPI/CC On Admission Date Seen by Provider: Jun 08, 2021 Time Seen by Provider: 11:00 CC: DKA with small bowel obstruction with afib with RVR HPI: 85 [facility] pt of Madeline Mercado. She has a past medical history of atrial fibrillation on anticoagulation. She presented with abdominal pain found to have a small bowel obstruction. She refused the NG tube. Was found to be in DKA. She was placed on insulin drip. Dr. Thorne consulted for afib with RVR. She has been placed on Lovenox 1mg per kg in the meantime for stroke prophylaxis. She is adamant she doesn't want an NG tube. We will be on alert for any colon perforation that could occur. Subjective/Events-last exam Patient was extubated yesterday Remains on 2 L of oxygen Patient appears to be volume overloaded still Patient on subcu insulin now Checked meds labs Updated daughter at the bedside regarding the possibility of a poor prognosis and if that appears to be going that direction we will notify her and she appears to be understanding of that considering she will turn 86 tomorrow and with her comorbidities prognosis remains poor. Review of Systems General: Fatigue Neurological: Confusion Focused Exam Lactate Level 06/06/21 08:30: Lactic Acid Level 2.66*H 06/06/21 13:00: Lactic Acid Level 2.03*H Objective Exam Vital Signs Vital Signs Date Time Temp Pulse Resp B/P (MAP) Pulse Ox O2 Delivery O2 Flow Rate FiO2 06/09/21 06:56 96 Nasal Cannula 4.00 06/09/21 06:00 104 19 155/82 06/08/21 23:48 37.4 06/07/21 12:00 30 Capillary Refill : Less Than 3 SecondsLess Than 3 Seconds General Appearance: No Apparent Distress, WD/WN, Chronically ill, Obese Respiratory: Accessory Muscle Use, Decreased Breath Sounds Cardiovascular: Irregularly Irregular Results/Procedures Lab Laboratory Tests 06/09/21 04:45 Patient resulted labs reviewed. Imaging: Reviewed Imaging Report Assessment/Plan Assessment and Plan Assess & Plan/Chief Complaint Assessment: Small Bowel Obstruction -Failed conservative therapy and refused NG tube status post surgical intervention DKA -Now on subcu insulin NSTEMI - s/p ASAx1 - s/p heparin bolus - cardiology consulted Afib - metop 50 - diltiazem gtt - lovenox - cardiology consulted COPD - duoneb Plan: Take to urgent exploratory surgery Monitor hemoglobin and anticoagulation DKA management Prognosis guarded considering advanced age of 85 06/07/2021: Status post emergent surgery Attempt to extubate 06/08/2021: Supportive care Prognosis poor Critical Care Ventilator Management MARK PAT DO Jun 08, 2021 07:37
[2021-06-08 08:54] LABS: ABG BASE EXCESS -4.1 MMOL/L (-2.5-2.5); ABG OXYGEN SATURATION 93 % (94-100); ABG PCO2 44 MMHG (35-45); ABG PO2 61 MMHG (79-93); ABG TCO2 22.7 MMOL/L (21.0-31.0)
[2021-06-08 08:58] LABS: INSPIRED O2 1LNC; PATIENT TEMP 36.3; VENTILATOR NO
--- NOTE | 2021-06-08 09:39 | Progress Note - Surgery ---
NATO CHANEY 06/08/21 0939: Subjective Date Seen by a Provider: Jun 08, 2021 Time Seen by a Provider: 09:15 Subjective/Events-last exam Pt has been extubated; NG tube still in place (100mL drainage currently, 400 overnight, no blood present). Pt currently on NC, oxygen went to 95 while in the room. Breathing slightly heavily. Receiving fentanyl every 2-3 hours for pain. Pt answers questions with hand motions, saying yes, no, or "a little." States her neck and abdomen hurts, but has no N/V. States her chest hurts a little, and she is a little SOB. Spoke with her nurse, who stated pt had a cough overnight. Pt had diarrheal stool overnight and has passed a little gas. Her urine output is poor. No fever or chills at this time. Review of Systems General: No Chills; Malaise HEENT: No Head Aches, No Visual Changes Pulmonary: Dyspnea, Cough Cardiovascular: Chest Pain; No: Palpitations Gastrointestinal: Abdominal Pain, Diarrhea; No: Nausea, Vomiting Genitourinary: No Dysuria; Other (low output; dark) Musculoskeletal: neck pain, foot pain (when covered) Neurological: No: Weakness, Confusion Focused Exam Lactate Level 06/06/21 08:30: Lactic Acid Level 2.66*H 06/06/21 13:00: Lactic Acid Level 2.03*H Respiratory: Lungs Clear, Normal Breath Sounds (breathing a little heavy), No Respiratory Distress Cardiovascular: No Murmur, Irregularly Irregular Peripheral Pulses: 2+ Radial Pulses (R), 2+ Radial Pulses (L) Skin: cool (bilat feet) Objective Exam Vital Signs Date Time Temp Pulse Resp B/P (MAP) Pulse Ox O2 Delivery O2 Flow Rate FiO2 06/08/21 09:00 83 26 136/53 97 Nasal Cannula 1.00 06/08/21 08:38 Nasal Cannula 1.00 06/08/21 08:24 96 Nasal Cannula 1.00 06/08/21 08:00 86 25 110/55 98 Room Air 06/08/21 07:41 36.3 06/08/21 07:10 99 Nasal Cannula 4.00 06/08/21 07:00 78 16 115/55 99 Room Air 06/08/21 07:00 80 06/08/21 06:00 81 18 136/56 100 Room Air 06/08/21 05:00 84 19 125/59 97 Room Air 06/08/21 04:00 82 17 126/57 99 Room Air 06/08/21 04:00 36.5 06/08/21 04:00 97 Nasal Cannula 2.00 06/08/21 03:00 75 21 119/75 95 Room Air 06/08/21 02:09 98 Nasal Cannula 4.00 06/08/21 02:00 75 24 129/83 94 Room Air 06/08/21 01:00 80 06/08/21 01:00 78 20 129/56 94 Room Air 06/08/21 00:00 91 20 128/57 98 Room Air 06/08/21 00:00 97 Nasal Cannula 2.00 06/07/21 23:00 90 22 123/56 98 Room Air 06/07/21 22:00 95 19 118/51 97 Room Air 06/07/21 21:33 98 Nasal Cannula 2.00 06/07/21 21:00 89 16 126/56 96 Room Air 06/07/21 20:00 37.2 06/07/21 20:00 97 Nasal Cannula 2.00 06/07/21 20:00 92 22 134/61 97 Room Air 06/07/21 19:10 94 Nasal Cannula 2.00 06/07/21 19:00 102 06/07/21 19:00 102 16 133/73 98 Room Air 06/07/21 18:00 93 28 132/69 98 Nasal Cannula 2.00 06/07/21 17:00 103 16 131/62 98 Nasal Cannula 2.00 06/07/21 16:00 125 25 152/46 99 Nasal Cannula 2.00 06/07/21 16:00 97 Nasal Cannula 2.00 06/07/21 15:42 37.1 06/07/21 15:11 96 Nasal Cannula 2.00 06/07/21 15:00 118 16 106/52 100 Nasal Cannula 2.00 06/07/21 14:00 121 24 144/62 91 Nasal Cannula 2.00 06/07/21 13:00 118 28 102/50 99 Nasal Cannula 2.00 06/07/21 12:51 112 06/07/21 12:11 37.3 06/07/21 12:00 30 06/07/21 12:00 97 Mechanical Ventilator 30 06/07/21 12:00 133 24 123/72 99 Mechanical Ventilator 50.00 06/07/21 11:00 114 17 120/57 100 Mechanical Ventilator 50.00 06/07/21 10:39 88 18 100 30 06/07/21 10:00 85 18 99/42 100 Mechanical Ventilator 50.00 I & O 06/08/21 07:00 Intake Total 1125 ml Output Total 1185 ml Balance -60 ml Capillary Refill : Less Than 3 SecondsLess Than 3 Seconds General Appearance: Chronically ill, Obese HEENT: Other (NG tube) Neck: Normal Inspection Respiratory: Lungs Clear, Normal Breath Sounds (breathing a little heavy; O2 at 95), No Respiratory Distress Cardiovascular: No Murmur, Tachycardia Peripheral Pulses: 2+ Radial Pulses (R), 2+ Radial Pulses (L) Gastrointestinal: distended, tenderness, other (incision pink and intact; no drainage on dressing at this time) Extremity: Other (bilat feet cold; red coloration) Neurologic/Psychiatric: Alert, Oriented x3 Skin: Cool (bilat feet; red coloration) Results Lab Laboratory Tests 06/07/21 11:31: Glucometer 234H 06/07/21 12:35: Blood Gas Puncture Site LEFT RADIAL, Blood Gas Patient Temperature 37.1, Arterial Blood pH 7.33*L, Arterial Blood Partial Pressure CO2 37, Arterial Blood Partial Pressure O2 85, Arterial Blood HCO3 19L, Arterial Blood Total CO2 19.9L, Arterial Blood Oxygen Saturation 97, Arterial Blood Base Excess -6.0L, Eldon Test NA, Blood Gas Ventilator Setting YES, Blood Gas Inspired Oxygen 30% 06/07/21 18:53: Glucometer 231H 06/07/21 23:59: Glucometer 238H 06/08/21 05:05: White Blood Count 14.9H, Red Blood Count 3.50L, Hemoglobin 10.2L, Hematocrit 33L , Mean Corpuscular Volume 94, Mean Corpuscular Hemoglobin 29, Mean Corpuscular Hemoglobin Concent 31L, Red Cell Distribution Width 14.5, Platelet Count 162, Mean Platelet Volume 13.1H, Immature Granulocyte % (Auto) 1, Neutrophils (%) (Auto) 84H, Lymphocytes (%) (Auto) 6L, Monocytes (%) (Auto) 9, Eosinophils (%) (Auto) 0, Basophils (%) (Auto) 0, Neutrophils # (Auto) 12.5H, Lymphocytes # (Auto) 0.9L, Monocytes # (Auto) 1.3H, Eosinophils # (Auto) 0.0, Basophils # (Auto) 0.0, Immature Granulocyte # (Auto) 0.2H, Percent Immature Platelet Fraction 14.8H, Sodium Level 131L, Potassium Level 4.9, Chloride Level 105, Carbon Dioxide Level 19L, Anion Gap 7, Blood Urea Nitrogen 15, Creatinine 0.96, Estimat Glomerular Filtration Rate 59, BUN/Creatinine Ratio 16, Glucose Level 257H, Calcium Level 7.7L, Corrected Calcium 8.9, Phosphorus Level 3.0, Magnesium Level 2.1, Total Bilirubin 0.3, Aspartate Amino Transf (AST/SGOT) 13, Alanine Aminotransferase (ALT/SGPT) 17, Alkaline Phosphatase 80, Total Protein 4.8L, Albumin 2.5L, Beta-Hydroxybutyrate (Chem panel) 0.40H 06/08/21 08:39: Blood Gas Puncture Site LEFT RADIAL, Blood Gas Patient Temperature 36.3, Arterial Blood pH 7.30*L, Arterial Blood Partial Pressure CO2 44, Arterial Blood Partial Pressure O2 61L, Arterial Blood HCO3 21L, Arterial Blood Total CO2 22.7, Arterial Blood Oxygen Saturation 93L, Arterial Blood Base Excess -4.1L, Eldon Test UNKNOWN, Blood Gas Ventilator Setting NO, Blood Gas Inspired Oxygen 1LNC Microbiology 06/06/21 Blood Culture - Preliminary, Resulted No growth 06/04/21 MRSA Screen - Final, Complete MRSA not isolated Assessment/Plan Assessment/Plan Assessment/Plan S/P exploratory laparotomy with lysis of adhesions, release of small bowel obstruction, and incidental appendectomy Hyperglycemia (257 this a.m.) AFib NSTEMI Anticoagulation (Lovenox held postop) Neuropathy (bilateral feet) NG tube in place Hgb dropped 10.2 from 11.4 Start Zosyn Start Incentive Spirometer Clamp NG tube- NPO (can have ice chips) Successful extubation IVFs will do 500 mL NS bolus since pressures soft and urine output low Consult cardio about restarting Lovenox today or tomorrow Insulin drip for glucose control Monitor labs and vitals DOUG GLASS DO 06/08/21 1357: Subjective Subjective/Events-last exam Patient extubated. NG tube in place. Abdomen with pain but fairly controlled. Some loose stool last night and passing a little bit of flatus. Urine output decreased. No family at bedside at this time. Denies nausea vomiting fever sweats chills or chest pain. Objective Exam General Appearance: Chronically ill, Obese HEENT: PERRL/EOMI, Other (NG tube) Neck: Normal Inspection, Carotid Bruit Respiratory: Chest Non Tender, No Accessory Muscle Use, No Respiratory Distress Cardiovascular: No JVD, Tachycardia Gastrointestinal: soft, distended (Minimal), tenderness (Incisional ), other (incision pink and intact; no drainage on dressing at this time) Extremity: Other (bilat feet cold; red coloration) Neurologic/Psychiatric: Alert, Oriented x3 Skin: Cool (bilat feet; red coloration) Lymphatic: No Adenopathy Assessment/Plan Assessment/Plan Assessment/Plan S/P exploratory laparotomy with lysis of adhesions, release of small bowel o bstruction, and incidental appendectomy Hyperglycemia (257 this a.m.) AFib NSTEMI Anticoagulation (Lovenox held postop) Neuropathy (bilateral feet) NG tube in place Hgb dropped 10.2 from 11.4 Start Incentive Spirometer Clamp NG tube- NPO (can have ice chips) Dont want to remove yet cause patient refused to have placed initially and want to try and prevent having to replace Successful extubation IVFs will consider 500 mL NS bolus since pressures soft and urine output low. Grant for accurate i/o Consult cardio about restarting Lovenox today or tomorrow Insulin drip for glucose control Monitor labs and vitals Supervisory-Addendum Brief Verification & Attestation Participated in pt care: history, MDM, physical Personally performed: exam, history, MDM, supervision of care Care discussed with: Medical Student Procedures: n/a Results interpretation: Verified all documentation Verification and Attestation of Medical Student E/M Service A medical student performed and documented this service in my presence. I reviewed and verified all information documented by the medical student and made modifications to such information, when appropriate. I personally performed the physical exam and medical decision making. Doug Glass, Jun 08, 2021,13:57 NATO CHANEY Jun 08, 2021 09:39 DOUG GLASS DO Jun 08, 2021 13:57
[2021-06-08] MEDS: PANTOPRAZOLE 40 MG (PROTONIX) VIAL IV SCH (09:59)
--- NOTE | 2021-06-08 11:33 | Diagnostic Imaging Report ---
HISTORY: Hypoxia COMPARISON: 06/06/2021 TECHNIQUE: Frontal view of the chest. FINDINGS: There are small bilateral pleural effusions with bibasilar airspace opacities. This appears stable in the left and opacities appear increased on the right. The right central line projects over the SVC. An enteric tube appears to cross the diaphragm, but is not well seen distally due to overlying soft tissues. No pneumothorax is seen. The cardiac silhouette is stable in size. There is mild central vascular congestion. IMPRESSION: 1. Small bilateral pleural effusions with associated airspace opacities, stable on the left and increased on the right. 2. Mild central vascular congestion. Dictated by: Dictated on workstation # [id number]
--- NOTE | 2021-06-08 11:41 | Tele-ICU Progress Note ---
Subjective Date Seen by a Provider: Jun 08, 2021 Time Seen by a Provider: 11:05 Sepsis Event Evaluation Height, Weight, BMI Height: 5'63.00" Weight: 219lbs. 1.0oz. [id number]; 37.00 BMI Method: Focused Exam Lactate Level 06/06/21 08:30: Lactic Acid Level 2.66*H 06/06/21 13:00: Lactic Acid Level 2.03*H Exam Exam Patient acknowledged, consented, and participated in this virtual visit which was conducted using real time audio/video Vital Signs Date Time Temp Pulse Resp B/P (MAP) Pulse Ox O2 Delivery O2 Flow Rate FiO2 06/08/21 11:00 87 19 117/54 97 Nasal Cannula 1.00 06/08/21 10:35 95 Nasal Cannula 2.00 06/08/21 10:00 96 11 117/79 91 Nasal Cannula 1.00 06/08/21 09:00 83 26 136/53 97 Nasal Cannula 1.00 06/08/21 08:38 Nasal Cannula 1.00 06/08/21 08:24 96 Nasal Cannula 1.00 06/08/21 08:00 86 25 110/55 98 Room Air 06/08/21 07:41 36.3 06/08/21 07:10 99 Nasal Cannula 4.00 06/08/21 07:00 78 16 115/55 99 Room Air 06/08/21 07:00 80 06/08/21 06:00 81 18 136/56 100 Room Air 06/08/21 05:00 84 19 125/59 97 Room Air 06/08/21 04:00 82 17 126/57 99 Room Air 06/08/21 04:00 36.5 06/08/21 04:00 97 Nasal Cannula 2.00 06/08/21 03:00 75 21 119/75 95 Room Air 06/08/21 02:09 98 Nasal Cannula 4.00 06/08/21 02:00 75 24 129/83 94 Room Air 06/08/21 01:00 80 06/08/21 01:00 78 20 129/56 94 Room Air 06/08/21 00:00 91 20 128/57 98 Room Air 06/08/21 00:00 97 Nasal Cannula 2.00 06/07/21 23:00 90 22 123/56 98 Room Air 06/07/21 22:00 95 19 118/51 97 Room Air 06/07/21 21:33 98 Nasal Cannula 2.00 06/07/21 21:00 89 16 126/56 96 Room Air 06/07/21 20:00 37.2 06/07/21 20:00 97 Nasal Cannula 2.00 06/07/21 20:00 92 22 134/61 97 Room Air 06/07/21 19:10 94 Nasal Cannula 2.00 06/07/21 19:00 102 06/07/21 19:00 102 16 133/73 98 Room Air 06/07/21 18:00 93 28 132/69 98 Nasal Cannula 2.00 06/07/21 17:00 103 16 131/62 98 Nasal Cannula 2.00 06/07/21 16:00 125 25 152/46 99 Nasal Cannula 2.00 06/07/21 16:00 97 Nasal Cannula 2.00 06/07/21 15:42 37.1 06/07/21 15:11 96 Nasal Cannula 2.00 06/07/21 15:00 118 16 106/52 100 Nasal Cannula 2.00 06/07/21 14:00 121 24 144/62 91 Nasal Cannula 2.00 06/07/21 13:00 118 28 102/50 99 Nasal Cannula 2.00 06/07/21 12:51 112 06/07/21 12:11 37.3 06/07/21 12:00 30 06/07/21 12:00 97 Mechanical Ventilator 30 06/07/21 12:00 133 24 123/72 99 Mechanical Ventilator 50.00 I & O 06/08/21 07:00 Intake Total 1125 ml Output Total 1185 ml Balance -60 ml Height & Weight Height: 5'63.00" Weight: 219lbs. 1.0oz. 99.658531rs; 37.00 BMI Method: General Appearance: Chronically ill, Obese HEENT: Other (NG tube) Neck: Normal Inspection Respiratory: Lungs Clear, Normal Breath Sounds (breathing a little heavy; O2 at 95), No Respiratory Distress Cardiovascular: No Murmur, Tachycardia Capillary Refill: Less Than 3 Seconds Peripheral Pulses: 2+ Radial Pulses (R), 2+ Radial Pulses (L) Gastrointestinal: distended, tenderness, other (incision pink and intact; no drainage on dressing at this time) Extremity: Other (bilat feet cold; red coloration) Neurologic/Psychiatric: Alert, Oriented x3 Skin: Cool (bilat feet; red coloration) Results Lab Laboratory Tests 06/07/21 04:21 06/08/21 05:05 Assessment/Plan Assessment/Plan (Tele-ICU Physician , Progress Note ) Available chart/ vitals / labs / Images reviewed Video assessment done using teleICU camera, rest of exam as per RN Discussed with RN , EXAM PER RN Events overnight : NG tube still in place ( 1200 mL drainage since Sx Afebrile FiO2 - 2l I/O = pos Drips: cardizem gtt Pressors: , hemodynamically stable Consultants: Hospital course: (05/15/21) 85yr old female admitted with SBO, CP with elevated troponin, hyperglycemia, afib rvr 2. S/P exploratory laparotomy , INTUBATED 06/07 - EXTUBATED A/P SBO - 06/06-S/P exploratory laparotomy with lysis of adhesions, release of small bowel obstruction, and incidental appendectomy - NG tube still in place ( 1200 mL drainage since Sx Oliguria - with Nl vitals and improving Cr - most likely due to sign NG output - will cont colloibd and crystalloids - decrease rate if increase need for o2 Increasing WBC - will check cxr and PCT - consider abx Lethargy - ABG with no CO2 retention , but + met acidosis - migght need bicarb or NIPPV - folow closely DKA- resloved OFF insulin drip -ISS A fib - RVR - rate control with cardizem gtt - OFF - AC: fill fose lovenox ( was on eliquis at home ) Recent NSTEMI. CAD - Echo on 06/06/21: LVEF 40-45%, anteroseptal hypokinesis, mild MR, PASP 65-70 mmHg - conservative management Pulm HTN - Echo on 06/06/21: PASP 65-70 mmHg - monitor carefullu Mild hypoxia - on 2 l - repeat cxr - IS Hyponatremia - post op - cont NS and follow Lines : right IJ 06/04 (Central Line Necessity Reviewed) Grant: + OG: Nutrition: Analgesia: Anxiety/ delirium VTE Prophylaxis: gita 100 bid Stress Ulcer Prophylaxis: ppi Plans in collaboration with bedside consultants and IM MDs. Discussed with RN to reach out if any questions or concerns A total of 32 minutes of critical care time was devoted to this patient today, required to treat and/or prevent further deterioration of critical care condition ( as above ) . ADALGISA CROCKETT MD Jun 08, 2021 11:41
[2021-06-08] MEDS: ALBUMIN 25% 25 GM/100 ML 100 ML IV SCH ×2 (13:16→22:13)
[2021-06-08] MEDS ORDERED: FUROSEMIDE 40 MG/4 ML INJ (LASIX) IVP NR (14:30)
--- NOTE | 2021-06-08 14:36 | Progress Note - Cardiology ---
Cardiology SOAP Progress Note Subjective: Feels unwell and short of breath Has gen malaise Does not report cp Does not report n/v Objective: I&O/Vital Signs 06/08/21 06/08/21 06/08/21 06/08/21 03:00 04:00 04:00 04:00 Temp 36.5 Pulse 75 82 Resp 21 17 B/P (MAP) 119/75 126/57 Pulse Ox 95 97 99 O2 Delivery Room Air Nasal Cannula Room Air O2 Flow Rate 2.00 06/08/21 06/08/21 06/08/21 06/08/21 05:00 06:00 07:00 07:00 Pulse 84 81 80 78 Resp 19 18 16 B/P (MAP) 125/59 136/56 115/55 Pulse Ox 97 100 99 O2 Delivery Room Air Room Air Room Air 06/08/21 06/08/21 06/08/21 06/08/21 07:10 07:41 08:00 08:24 Temp 36.3 Pulse 86 Resp 25 B/P (MAP) 110/55 Pulse Ox 99 98 96 O2 Delivery Nasal Cannula Room Air Nasal Cannula O2 Flow Rate 4.00 1.00 06/08/21 06/08/21 06/08/21 06/08/21 08:38 09:00 10:00 10:35 Pulse 83 96 Resp 26 11 B/P (MAP) 136/53 117/79 Pulse Ox 97 91 95 O2 Delivery Nasal Cannula Nasal Cannula Nasal Cannula Nasal Cannula O2 Flow Rate 1.00 1.00 1.00 2.00 06/08/21 06/08/21 06/08/21 06/08/21 11:00 11:44 12:00 12:51 Temp 36.6 Pulse 87 90 117 Resp 19 25 B/P (MAP) 117/54 133/64 Pulse Ox 97 98 O2 Delivery Nasal Cannula Nasal Cannula O2 Flow Rate 1.00 1.00 06/08/21 06/08/21 13:00 14:00 Pulse 99 96 Resp 29 25 B/P (MAP) 141/68 121/64 Pulse Ox 95 96 O2 Delivery Nasal Cannula Nasal Cannula O2 Flow Rate 1.00 1.00 06/08/21 00:00 Intake Total 0 ml Output Total 500 ml Balance -500 ml Weight (Pounds): 219 Weight (Ounces): 1.0 Weight (Calculated Kilograms): 99.209246 Constitutional: well-developed, well-nourished, other (appears oriented to person and place) Respiratory: No accessory muscle use, No respiratory distress; chest expansion is symmetric, chest is bilaterally symmetric, lungs clear to auscultation Cardiovascular: irregularly irregular; No JVD; S1 and S2 Gastrointestional: No audible bowel sounds; other (s/p abdominal surgery ) Extremities: no lower extremity edema bilateral Neurologic/Psychiatric: other (moves all limbs) Skin: cool (bilat feet) Results/Procedures: Labs Laboratory Tests 06/07/21 18:53: Glucometer 231H 06/07/21 23:59: Glucometer 238H 06/08/21 05:05: White Blood Count 14.9H, Red Blood Count 3.50L, Hemoglobin 10.2L, Hematocrit 33L , Mean Corpuscular Volume 94, Mean Corpuscular Hemoglobin 29, Mean Corpuscular Hemoglobin Concent 31L, Red Cell Distribution Width 14.5, Platelet Count 162, Mean Platelet Volume 13.1H, Immature Granulocyte % (Auto) 1, Neutrophils (%) (Auto) 84H, Lymphocytes (%) (Auto) 6L, Monocytes (%) (Auto) 9, Eosinophils (%) (Auto) 0, Basophils (%) (Auto) 0, Neutrophils # (Auto) 12.5H, Lymphocytes # (Auto) 0.9L, Monocytes # (Auto) 1.3H, Eosinophils # (Auto) 0.0, Basophils # (Auto) 0.0, Immature Granulocyte # (Auto) 0.2H, Percent Immature Platelet Fraction 14.8H, Sodium Level 131L, Potassium Level 4.9, Chloride Level 105, Carbon Dioxide Level 19L, Anion Gap 7, Blood Urea Nitrogen 15, Creatinine 0.96, Estimat Glomerular Filtration Rate 59, BUN/Creatinine Ratio 16, Glucose Level 257H, Calcium Level 7.7L, Corrected Calcium 8.9, Phosphorus Level 3.0, Magnesium Level 2.1, Total Bilirubin 0.3, Aspartate Amino Transf (AST/SGOT) 13, Alanine Aminotransferase (ALT/SGPT) 17, Alkaline Phosphatase 80, Total Protein 4.8L, Albumin 2.5L, Beta-Hydroxybutyrate (Chem panel) 0.40H, Procalcitonin 0.99H 06/08/21 08:39: Blood Gas Puncture Site LEFT RADIAL, Blood Gas Patient Temperature 36.3, Arterial Blood pH 7.30*L, Arterial Blood Partial Pressure CO2 44, Arterial Blood Partial Pressure O2 61L, Arterial Blood HCO3 21L, Arterial Blood Total CO2 22.7, Arterial Blood Oxygen Saturation 93L, Arterial Blood Base Excess -4.1L, Eldon Test UNKNOWN, Blood Gas Ventilator Setting NO, Blood Gas Inspired Oxygen 1LNC 06/08/21 12:39: Glucometer 159H Microbiology 06/06/21 Blood Culture - Preliminary, Resulted No growth 06/04/21 MRSA Screen - Final, Complete MRSA not isolated Laboratory Tests 06/07/21 04:21 06/08/21 05:05 A/P: Assessment: Ac systolic CHF S/P abdominal surgery on 06-06-[address] Glass - exploratory laparotomy with lysis of adhesions, release of small bowel obstruction, appendectomy Recent NSTEMI - conservative management Chronic a-fib - rate controlled - OAC with Eliquis CAD - h/o coronary stent placed 5-6 yrs ago at [facility] (follows with Dr. Craig at [facility]) - Echo on 06/06/21: LVEF 40-45%, anteroseptal hypokinesis, mild MR, PASP 65-70 mmHg COPD H/O TIA's HTN HLD Fibromyalgia Carotid arterial dz - details unknown Right hip fracture following a non-syncopal fall in May 2020 Prior GI history: 1) H/o upper and lower endoscopy on 07-04-[address] Cooper - no active bleeding; gastritis; ext and internal hemorrhoids. 2) H/o lap carmelo by Dr. Cooper on 07-04-20 Plan: Complex management due to multiple comorbidities Continue conservative management of NSTEMI For A-fib, continue dilt as needed. OAC and full anticoag being held due to recent abd surgery. Resume enoxaparin in DVT-prophylaxis dose iv Lasix today due to decomp CHF and low urine output Monitor lab closely and replace electrolytes as needed I spoke with her fam and answered questions MICHELLE BREWER MD FACP [facility] Jun 08, 2021 14:36
[2021-06-08] MEDS: SODIUM BICARB 8.4% 50 MEQ/50 ML VIAL IV SCH (14:58)
[2021-06-08] MEDS ORDERED: metroNIDAZOLE 500MG/100ML IVPB 100 ML ONE (20:42)
[2021-06-08] MEDS: metroNIDAZOLE 500MG/100ML IVPB 100 ML IV SCH (20:45)
[2021-06-08] MEDS: AZTREONAM INJECTION 2,000 MG in NS (IVPB) 100 ML IV SCH (22:13)
[2021-06-09] MEDS: inSUlin ASPART (NovoLOG) 1 UNIT/0.01 ML (CHARGE PER UNIT) SC SCH ×4 (00:46→18:25)
[2021-06-09] MEDS: RT-ALBUTEROL/IPRATROPIUM 3 ML (DUONEB) VIAL INH SCH ×6 (02:53→22:01)
[2021-06-09] MEDS: fentaNYL INJ 100 MCG/2 ML AMP IVP PRN ×6 (04:30→22:05)
[2021-06-09 05:02] LABS: BASOPHILS % (AUTO) 0 % (0-10); EOSINOPHILS # (AUTO) 0.3 10^3/uL (0.0-0.3); EOSINOPHILS % (AUTO) 2 % (0-10); HEMATOCRIT 30 % (35-52); HEMOGLOBIN 9.3 g/dL (11.5-16.0); LYMPHOCYTES % (AUTO) 9 % (12-44); MEAN CORPUSCULAR HEMOGLOBIN 29 pg (25-34); MEAN CORPUSCULAR HGB CONC 31 g/dL (32-36); MEAN CORPUSCULAR VOLUME 95 fL (80-99); MONOCYTES # (AUTO) 0.9 10^3/uL (0.0-1.0); MONOCYTES % (AUTO) 8 % (0-12); NEUTROPHILS # (AUTO) 9.4 10^3/uL (1.8-7.8); NEUTROPHILS % (AUTO) 80 % (42-75); PLATELET COUNT 139 10^3/uL (130-400); WHITE BLOOD COUNT 11.7 10^3/uL (4.3-11.0)
[2021-06-09 05:24] LABS: ALBUMIN 3.1 GM/DL (3.2-4.5); POTASSIUM 3.8 MMOL/L (3.6-5.0)
[2021-06-09 05:25] LABS: CALCIUM 8.3 MG/DL (8.5-10.1)
[2021-06-09 05:27] LABS: TOTAL PROTEIN 5.4 GM/DL (6.4-8.2)
[2021-06-09 05:28] LABS: BILIRUBIN,TOTAL 0.4 MG/DL (0.1-1.0)
[2021-06-09 05:30] LABS: CREATININE SERUM 0.89 MG/DL (0.60-1.30); PHOSPHORUS 2.3 MG/DL (2.3-4.7)
[2021-06-09 05:33] LABS: MAGNESIUM 1.7 MG/DL (1.6-2.4)
[2021-06-09] MEDS: NS IV 1000 ML 1,000 ML IV SCH ×3 (06:10→21:20)
[2021-06-09] MEDS: AZTREONAM INJECTION 2,000 MG in NS (IVPB) 100 ML IV SCH ×3 (06:10→21:20)
[2021-06-09] MEDS: KCL 20 MEQ TAB (K-DUR) PO SCH (06:11)
[2021-06-09] MEDS: POTASSIUM CL 10MEQ/50ML IVPB 50 ML IV SCH (06:11)
[2021-06-09] MEDS: MAGNESIUM 1 GM/100 ML IVPB 100 ML IV SCH (06:11)
--- NOTE | 2021-06-09 07:07 | Progress Note - Surgery ---
NATO CHANEY 06/09/21 0707: Subjective Date Seen by a Provider: Jun 09, 2021 Time Seen by a Provider: 06:45 Subjective/Events-last exam It's the pt's birthday today! Pt a little more alert than yesterday. Still has a difficult time speaking clearly, says yes or no mostly. Cardiology restarted her lovenox at 40mg. Yesterday, she received albumin and then furosemide to increase urine output. It increased to 0.62 ml/kg/hr. She had a repeat CXR that showed small bilateral pleural effusions (left side stable, right side had increased) as well as mild central vascular congestion. Pt had a small bowel movement as reported by the nurse. Was started on aztreonam and metronidazole. Denies CP, N/V, MENA, and pain at this time. Remains slightly SOB and has a cough. Review of Systems General: Chills, Malaise HEENT: No Head Aches, No Visual Changes Pulmonary: Dyspnea, Cough Cardiovascular: No: Chest Pain, Palpitations Gastrointestinal: Abdominal Pain (nurse reports pain overnight; pt denied in room this a.m.); No: Nausea, Vomiting Genitourinary: No Dysuria; Frequency (Lasix given) Musculoskeletal: neck pain; No: foot pain Neurological: No: Weakness, Change in speech Focused Exam Lactate Level 06/06/21 08:30: Lactic Acid Level 2.66*H 06/06/21 13:00: Lactic Acid Level 2.03*H Respiratory: Lungs Clear, Normal Breath Sounds, No Respiratory Distress Cardiovascular: Normal Peripheral Pulses, Irregularly Irregular Peripheral Pulses: 2+ Radial Pulses (R), 2+ Radial Pulses (L) Skin: normal color, warm/dry Objective Exam Vital Signs Date Time Temp Pulse Resp B/P (MAP) Pulse Ox O2 Delivery O2 Flow Rate FiO2 06/09/21 06:56 96 Nasal Cannula 4.00 06/09/21 06:00 104 19 155/82 95 Nasal Cannula 4.00 06/09/21 05:00 113 25 143/71 96 Nasal Cannula 4.00 06/09/21 04:00 96 Nasal Cannula 1.00 06/09/21 04:00 109 18 149/77 97 Nasal Cannula 4.00 06/09/21 03:00 103 18 155/71 97 Nasal Cannula 4.00 06/09/21 02:54 96 Nasal Cannula 4.00 06/09/21 02:00 98 24 140/73 99 Nasal Cannula 4.00 06/09/21 01:00 105 06/09/21 01:00 105 17 141/84 100 Nasal Cannula 4.00 06/09/21 00:00 96 Nasal Cannula 1.00 06/09/21 00:00 98 16 131/60 97 Nasal Cannula 4.00 06/08/21 23:48 37.4 06/08/21 23:00 106 18 141/86 100 Nasal Cannula 2.00 06/08/21 22:00 112 27 144/61 100 Nasal Cannula 2.00 06/08/21 21:41 99 Nasal Cannula 2.00 06/08/21 21:00 117 25 124/52 97 Nasal Cannula 2.00 06/08/21 20:00 98 18 151/68 100 Nasal Cannula 2.00 06/08/21 20:00 36.7 06/08/21 20:00 96 Nasal Cannula 1.00 06/08/21 19:00 105 23 144/60 100 Nasal Cannula 2.00 06/08/21 19:00 105 06/08/21 18:36 96 Nasal Cannula 2.00 06/08/21 18:00 96 25 150/70 100 Nasal Cannula 1.00 06/08/21 17:00 100 25 135/84 92 Nasal Cannula 1.00 06/08/21 16:00 96 Nasal Cannula 1.00 06/08/21 16:00 96 25 140/69 99 Nasal Cannula 1.00 06/08/21 15:50 36.9 06/08/21 15:00 93 14 147/72 95 Nasal Cannula 1.00 06/08/21 14:59 92 Nasal Cannula 2.00 06/08/21 14:00 96 25 121/64 96 Nasal Cannula 1.00 06/08/21 13:00 99 29 141/68 95 Nasal Cannula 1.00 06/08/21 12:51 117 06/08/21 12:00 96 Nasal Cannula 1.00 06/08/21 12:00 90 25 133/64 98 Nasal Cannula 1.00 06/08/21 11:44 36.6 06/08/21 11:00 87 19 117/54 97 Nasal Cannula 1.00 06/08/21 10:35 95 Nasal Cannula 2.00 06/08/21 10:00 96 11 117/79 91 Nasal Cannula 1.00 06/08/21 09:00 83 26 136/53 97 Nasal Cannula 1.00 06/08/21 08:38 Nasal Cannula 1.00 06/08/21 08:24 96 Nasal Cannula 1.00 06/08/21 08:00 86 25 110/55 98 Room Air 06/08/21 07:41 36.3 06/08/21 07:10 99 Nasal Cannula 4.00 I & O 06/09/21 07:00 Intake Total 2400 ml Output Total 3525 ml Balance -1125 ml Capillary Refill : Less Than 3 SecondsLess Than 3 Seconds General Appearance: No Apparent Distress, Chronically ill, Obese HEENT: Other (NG tube) Neck: Carotid Bruit Respiratory: Normal Breath Sounds, No Respiratory Distress Cardiovascular: Normal Peripheral Pulses, Irregularly Irregular Peripheral Pulses: 2+ Dorsalis Pedis (R), 2+ Left Dors-Pedis (L), 2+ Radial Pulses (R), 2+ Radial Pulses (L) Gastrointestinal: distended (Minimal), tenderness (Incisional ), other (incision pink and intact; slight drainage on dressing) Extremity: Other (bilat feet redness and warmth improved) Neurologic/Psychiatric: Alert, Oriented x3, Normal Mood/Affect Skin: Normal Color, Warm/Dry Results Lab Laboratory Tests 06/08/21 08:39: Blood Gas Puncture Site LEFT RADIAL, Blood Gas Patient Temperature 36.3, Arterial Blood pH 7.30*L, Arterial Blood Partial Pressure CO2 44, Arterial Blood Partial Pressure O2 61L, Arterial Blood HCO3 21L, Arterial Blood Total CO2 22.7, Arterial Blood Oxygen Saturation 93L, Arterial Blood Base Excess -4.1L, Eldon Test UNKNOWN, Blood Gas Ventilator Setting NO, Blood Gas Inspired Oxygen 1LNC 06/08/21 12:39: Glucometer 159H 06/08/21 17:45: Glucometer 189H 06/08/21 23:45: Glucometer 200H 06/09/21 04:45: White Blood Count 11.7H, Red Blood Count 3.17L, Hemoglobin 9.3L, Hematocrit 30L, Mean Corpuscular Volume 95, Mean Corpuscular Hemoglobin 29, Mean Corpuscular Hemoglobin Concent 31L, Red Cell Distribution Width 14.6H, Platelet Count 139, Mean Platelet Volume 13.0H, Immature Granulocyte % (Auto) 1, Neutrophils (%) ( Auto) 80H, Lymphocytes (%) (Auto) 9L, Monocytes (%) (Auto) 8, Eosinophils (%) (Auto) 2, Basophils (%) (Auto) 0, Neutrophils # (Auto) 9.4H, Lymphocytes # (Auto) 1.0, Monocytes # (Auto) 0.9, Eosinophils # (Auto) 0.3, Basophils # (Auto) 0.0, Immature Granulocyte # (Auto) 0.1, Sodium Level 137, Potassium Level 3.8, Chloride Level 106, Carbon Dioxide Level 22, Anion Gap 9, Blood Urea Nitrogen 15, Creatinine 0.89, Estimat Glomerular Filtration Rate 64, BUN/Creatinine Ratio 17, Glucose Level 167H, Calcium Level 8.3L, Corrected Calcium 9.0, Phosphorus Level 2.3, Magnesium Level 1.7, Total Bilirubin 0.4, Aspartate Amino Transf (AST/SGOT) 10, Alanine Aminotransferase (ALT/SGPT) 14, Alkaline Phosphatase 78, Total Protein 5.4L, Albumin 3.1L, Triglycerides Level 87, Beta-Hydroxybutyrate (Chem panel) 0.35H Microbiology 06/06/21 Blood Culture - Preliminary, Resulted No growth 06/04/21 MRSA Screen - Final, Complete MRSA not isolated Assessment/Plan Assessment/Plan Assessment/Plan S/P exploratory laparotomy with lysis of adhesions, release of small bowel obstruction, and incidental appendectomy Hyperglycemia (improved-167 this a.m.) AFib NSTEMI Anticoagulation (Lovenox resumed at 40mg) Neuropathy (bilateral feet) NG tube clamped Hgb dropped from 10.2 to 9.3 HTN (155/82 today) SOB/cough Incentive Spirometer Continue azotreonam and metronidazole Clamped NG tube- NPO (can have ice chips) Dont want to remove yet cause patient refused to have placed initially and want to try and prevent having to replace 4L NC IVFs; drake for accurate i/o Hold further lasix Monitor labs and vitals DOUG ZAMAN DO 06/09/21 1202: Subjective Subjective/Events-last exam Patient is alert. Her pain is at midline of her belly. Slightly improving. Patient Lovenox restarted. Patient no significant bowel function still at this time. NG tube in place. Urine output has improved. Chest x-ray showing small bilateral pleural effusions was restarted on antibiotics. Patient family at bedside. Objective Exam General Appearance: No Apparent Distress, Chronically ill, Obese HEENT: PERRL/EOMI, Normal ENT Inspection, Other (NG tube) Neck: Normal Inspection Respiratory: Chest Non Tender, No Accessory Muscle Use, No Respiratory Distress Cardiovascular: Irregularly Irregular Gastrointestinal: soft, distended (Minimal), tenderness (Incisional ), other (Incisions clean dry intact slight bruising around) Extremity: Non Tender, Other (bilat feet redness and warmth improved) Neurologic/Psychiatric: Alert, Oriented x3, Normal Mood/Affect Skin: Normal Color, Warm/Dry Lymphatic: No Adenopathy Assessment/Plan Assessment/Plan Assessment/Plan S/P exploratory laparotomy with lysis of adhesions, release of small bowel obstruction, and incidental appendectomy Hyperglycemia (improved-167 this a.m.) AFib NSTEMI Anticoagulation (Lovenox resumed at 40mg) Neuropathy (bilateral feet) NG tube clamped Hgb dropped from 10.2 to 9.3 HTN (155/82 today) SOB/cough Incentive Spirometer Continue azotreonam and metronidazole Clamped NG tube- NPO (can have ice chips) Dont want to remove yet cause patient refused to have placed initially and want to try and prevent having to replace 4L NC IVFs; drake for accurate i/o Hold further lasix Monitor labs and vitals Supervisory-Addendum Brief Verification & Attestation Participated in pt care: history, MDM, physical Personally performed: exam, history, MDM, supervision of care Care discussed with: Medical Student Procedures: n/a Results interpretation: Verified all documentation Verification and Attestation of Medical Student E/M Service A medical student performed and documented this service in my presence. I reviewed and verified all information documented by the medical student and made modifications to such information, when appropriate. I personally performed the physical exam and medical decision making. Doug Zaman, Jun 09, 2021,12:02 NATO CHANEY Jun 09, 2021 07:07 DOUG ZAMAN DO Jun 09, 2021 12:02
--- NOTE | 2021-06-09 08:33 | Progress Note - Hospitalist ---
Subjective HPI/CC On Admission Date Seen by Provider: Jun 09, 2021 Time Seen by Provider: 12:30 CC: DKA with small bowel obstruction with afib with RVR HPI: 85 [facility] pt of Madeline Mercado. She has a past medical history of atrial fibrillation on anticoagulation. She presented with abdominal pain found to have a small bowel obstruction. She refused the NG tube. Was found to be in DKA. She was placed on insulin drip. Dr. Thorne consulted for afib with RVR. She has been placed on Lovenox 1mg per kg in the meantime for stroke prophylaxis. She is adamant she doesn't want an NG tube. We will be on alert for any colon perforation that could occur. Subjective/Events-last exam Her birthday is today Patient appears to be more lethargic and and end-stage Talk to daughter and DNR is appropriate Continuing close monitoring due to tachypnea Review of Systems Pulmonary: Dyspnea Focused Exam Lactate Level Objective Exam Vital Signs Vital Signs Date Time Temp Pulse Resp B/P (MAP) Pulse Ox O2 Delivery O2 Flow Rate FiO2 06/10/21 05:00 112 19 137/77 92 Nasal Cannula 2.00 06/09/21 11:20 36.3 06/07/21 12:00 30 Capillary Refill : Less Than 3 SecondsLess Than 3 Seconds General Appearance: No Apparent Distress, WD/WN, Chronically ill, Obese Respiratory: Accessory Muscle Use, Decreased Breath Sounds Cardiovascular: Regular Rate, Rhythm Results/Procedures Lab Laboratory Tests 06/10/21 02:56 Patient resulted labs reviewed. Imaging: Reviewed Imaging Report Assessment/Plan Assessment and Plan Assess & Plan/Chief Complaint Assessment: Small Bowel Obstruction -Failed conservative therapy and refused NG tube status post surgical intervention DKA -Now on subcu insulin NSTEMI - s/p ASAx1 - s/p heparin bolus - cardiology consulted Afib - metop 50 - diltiazem gtt - lovenox - cardiology consulted COPD - duoneb Plan: Take to urgent exploratory surgery Monitor hemoglobin and anticoagulation DKA management Prognosis guarded considering advanced age of 85 06/07/2021: Status post emergent surgery Attempt to extubate 06/08/2021: Supportive care Prognosis poor 06/09/2021: DNR Poor prognosis Critical Care Ventilator Management MARK PAT DO Jun 09, 2021 08:33
[2021-06-09] MEDS: metroNIDAZOLE 500MG/100ML IVPB 100 ML IV SCH ×2 (08:48→20:28)
[2021-06-09] MEDS: PANTOPRAZOLE 40 MG (PROTONIX) VIAL IV SCH (08:49)
[2021-06-09] MEDS: ENOXAPARIN 40 MG/0.4 ML (LOVENOX) SYR SC SCH (08:49)
[2021-06-09] MEDS ORDERED: ENOXAPARIN 100 MG/1 ML (LOVENOX) SYR SC SCH (09:00)
[2021-06-09] MEDS ORDERED: KETOROLAC 15 MG/ML VIAL IVP NR (10:30)
[2021-06-09] MEDS ORDERED: FUROSEMIDE 40 MG/4 ML INJ (LASIX) IVP NR (10:30)
--- NOTE | 2021-06-09 10:43 | Tele-ICU Progress Note ---
Subjective Date Seen by a Provider: Jun 09, 2021 Time Seen by a Provider: 10:38 Subjective/Events-last exam Patient is very weak and complains of generalized pain not just in abdomen. When given fentanyl 50 mcg she is to sleepy but when given 25 mcg she is not controlled with pain. She continues to get saline at 125 cc/h. Chest x-ray showed worsening. She required a more oxygen up to 4 L nasal cannula when compared to yesterday. Video visit made and discussed with the AMPOULE INSPECTOR. Review of Systems ROS PER RN Sepsis Event Evaluation Height, Weight, BMI Height: 5'63.00" Weight: 219lbs. 1.0oz. 99.791473hm; 37.00 BMI Method: Focused Exam Lactate Level 06/06/21 13:00: Lactic Acid Level 2.03*H Exam Exam Patient acknowledged, consented, and participated in this virtual visit which was conducted using real time audio/video Vital Signs Date Time Temp Pulse Resp B/P (MAP) Pulse Ox O2 Delivery O2 Flow Rate FiO2 06/09/21 10:00 109 23 138/72 96 Nasal Cannula 4.00 06/09/21 09:00 101 12 146/76 95 Nasal Cannula 4.00 06/09/21 08:00 102 18 146/86 96 Nasal Cannula 4.00 06/09/21 07:42 36.7 06/09/21 07:13 94 Nasal Cannula 4.00 06/09/21 07:00 97 16 151/75 96 Nasal Cannula 4.00 06/09/21 07:00 121 06/09/21 06:56 96 Nasal Cannula 4.00 06/09/21 06:00 104 19 155/82 95 Nasal Cannula 4.00 06/09/21 05:00 113 25 143/71 96 Nasal Cannula 4.00 06/09/21 04:00 96 Nasal Cannula 1.00 06/09/21 04:00 109 18 149/77 97 Nasal Cannula 4.00 06/09/21 03:00 103 18 155/71 97 Nasal Cannula 4.00 06/09/21 02:54 96 Nasal Cannula 4.00 06/09/21 02:00 98 24 140/73 99 Nasal Cannula 4.00 06/09/21 01:00 105 06/09/21 01:00 105 17 141/84 100 Nasal Cannula 4.00 06/09/21 00:00 96 Nasal Cannula 1.00 06/09/21 00:00 98 16 131/60 97 Nasal Cannula 4.00 06/08/21 23:48 37.4 06/08/21 23:00 106 18 141/86 100 Nasal Cannula 2.00 06/08/21 22:00 112 27 144/61 100 Nasal Cannula 2.00 06/08/21 21:41 99 Nasal Cannula 2.00 06/08/21 21:00 117 25 124/52 97 Nasal Cannula 2.00 06/08/21 20:00 98 18 151/68 100 Nasal Cannula 2.00 06/08/21 20:00 36.7 06/08/21 20:00 96 Nasal Cannula 1.00 06/08/21 19:00 105 23 144/60 100 Nasal Cannula 2.00 06/08/21 19:00 105 06/08/21 18:36 96 Nasal Cannula 2.00 06/08/21 18:00 96 25 150/70 100 Nasal Cannula 1.00 06/08/21 17:00 100 25 135/84 92 Nasal Cannula 1.00 06/08/21 16:00 96 Nasal Cannula 1.00 06/08/21 16:00 96 25 140/69 99 Nasal Cannula 1.00 06/08/21 15:50 36.9 06/08/21 15:00 93 14 147/72 95 Nasal Cannula 1.00 06/08/21 14:59 92 Nasal Cannula 2.00 06/08/21 14:00 96 25 121/64 96 Nasal Cannula 1.00 06/08/21 13:00 99 29 141/68 95 Nasal Cannula 1.00 06/08/21 12:51 117 06/08/21 12:00 96 Nasal Cannula 1.00 06/08/21 12:00 90 25 133/64 98 Nasal Cannula 1.00 06/08/21 11:44 36.6 06/08/21 11:00 87 19 117/54 97 Nasal Cannula 1.00 I & O 06/09/21 07:00 Intake Total 2400 ml Output Total 3525 ml Balance -1125 ml Height & Weight Height: 5'63.00" Weight: 219lbs. 1.0oz. 99.615615ye; 37.00 BMI Method: General Appearance: No Apparent Distress, Chronically ill, Obese HEENT: Other (NG tube) Neck: Carotid Bruit Respiratory: Normal Breath Sounds, No Respiratory Distress Cardiovascular: Normal Peripheral Pulses, Irregularly Irregular Capillary Refill: Less Than 3 Seconds Peripheral Pulses: 2+ Dorsalis Pedis (R), 2+ Left Dors-Pedis (L), 2+ Radial Pulses (R), 2+ Radial Pulses (L) Gastrointestinal: distended (Minimal), tenderness (Incisional ), other (incision pink and intact; slight drainage on dressing) Extremity: Other (bilat feet redness and warmth improved) Neurologic/Psychiatric: Alert, Oriented x3, Normal Mood/Affect Skin: Normal Color, Warm/Dry Other comments PE PER RN Results Lab Laboratory Tests 06/08/21 05:05 06/09/21 04:45 Assessment/Plan Assessment/Plan 1. Postoperative pulmonary insufficiency improved and on oxygen via n/c 2. Small bowel obstruction status post exploratory laparotomy and lysis of adhesions 3. Diabetic ketoacidosis improved and on insulin s/c 4. Hyponatremia improved 5. Non-STEMI, cardiology on the case. 6. Atrial fibrillation, cardiology on the case. 7. COPD clinically stable. Recommendations 1. continue oxygen via n/c 2. Decrease ivf 3. Atrial fibrillation management per cardiology 4. Diabetes management per primary care. 5. Non-STEMI management per cardiology. 6. DVT prophylaxis and ulcer prophylaxis. 7. Postoperative surgical management for general surgery. 8. will give iv toradol one dose and see the response. 9. give iv lasix. Critical Care: Critically Ill Patient JIMMY REILLY MD Jun 09, 2021 10:43
--- NOTE | 2021-06-09 16:51 | Progress Note - Cardiology ---
Cardiology SOAP Progress Note Subjective: Unable to communicate intelligibly Does not report cp or palp or shortness of breath or syncope Daughter by bedside states that patient drifts in and out of confusion Objective: I&O/Vital Signs 06/09/21 06/09/21 06/09/21 06/09/21 05:00 06:00 06:56 07:00 Pulse 113 104 121 Resp 25 19 B/P (MAP) 143/71 155/82 Pulse Ox 96 95 96 O2 Delivery Nasal Cannula Nasal Cannula Nasal Cannula O2 Flow Rate 4.00 4.00 4.00 06/09/21 06/09/21 06/09/21 06/09/21 07:00 07:13 07:42 08:00 Temp 36.7 Pulse 97 102 Resp 16 18 B/P (MAP) 151/75 146/86 Pulse Ox 96 94 96 O2 Delivery Nasal Cannula Nasal Cannula Nasal Cannula O2 Flow Rate 4.00 4.00 4.00 06/09/21 06/09/21 06/09/21 06/09/21 09:00 10:00 10:45 11:00 Pulse 101 109 114 Resp 12 23 20 B/P (MAP) 146/76 138/72 144/76 Pulse Ox 95 96 96 95 O2 Delivery Nasal Cannula Nasal Cannula Nasal Cannula Nasal Cannula O2 Flow Rate 4.00 4.00 4.00 4.00 06/09/21 06/09/21 06/09/21 06/09/21 11:20 11:49 12:00 12:45 Temp 36.3 Pulse 112 104 Resp 20 B/P (MAP) 125/78 Pulse Ox 94 93 O2 Delivery Nasal Cannula Nasal Cannula O2 Flow Rate 4.00 4.00 06/09/21 06/09/21 06/09/21 06/09/21 13:00 14:00 15:00 15:00 Pulse 106 115 108 Resp 26 16 15 B/P (MAP) 113/77 159/89 144/67 Pulse Ox 92 95 96 97 O2 Delivery Nasal Cannula Nasal Cannula Nasal Cannula Nasal Cannula O2 Flow Rate 4.00 4.00 4.00 4.00 06/09/21 16:00 Pulse 108 Resp 21 B/P (MAP) 133/57 Pulse Ox 94 O2 Delivery Nasal Cannula O2 Flow Rate 4.00 06/09/21 00:00 Intake Total 2400 ml Output Total 2675 ml Balance -275 ml Weight (Pounds): 219 Weight (Ounces): 1.0 Weight (Calculated Kilograms): 99.987429 Constitutional: No AAO x 3; well-developed, well-nourished Respiratory: No accessory muscle use, No respiratory distress; chest expansion is symmetric, chest is bilaterally symmetric, lungs clear to auscultation Cardiovascular: irregularly irregular; No JVD; S1 and S2 Gastrointestional: No audible bowel sounds; other (s/p abdominal surgery ) Extremities: no lower extremity edema bilateral Neurologic/Psychiatric: other (moves all limbs) Skin: normal color, warm/dry Results/Procedures: Labs Laboratory Tests 06/08/21 17:45: Glucometer 189H 06/08/21 23:45: Glucometer 200H 06/09/21 04:45: White Blood Count 11.7H, Red Blood Count 3.17L, Hemoglobin 9.3L, Hematocrit 30L, Mean Corpuscular Volume 95, Mean Corpuscular Hemoglobin 29, Mean Corpuscular Hemoglobin Concent 31L, Red Cell Distribution Width 14.6H, Platelet Count 139, Mean Platelet Volume 13.0H, Immature Granulocyte % (Auto) 1, Neutrophils (%) (Auto) 80H, Lymphocytes (%) (Auto) 9L, Monocytes (%) (Auto) 8, Eosinophils (%) (Auto) 2, Basophils (%) (Auto) 0, Neutrophils # (Auto) 9.4H, Lymphocytes # (Auto) 1.0, Monocytes # (Auto) 0.9, Eosinophils # (Auto) 0.3, Basophils # (Auto) 0.0, Immature Granulocyte # (Auto) 0.1, Sodium Level 137, Potassium Level 3.8, Chloride Level 106, Carbon Dioxide Level 22, Anion Gap 9, Blood Urea Nitrogen 15, Creatinine 0.89, Estimat Glomerular Filtration Rate 64, BUN/Creatinine Ratio 17, Glucose Level 167H, Calcium Level 8.3L, Corrected Calcium 9.0, Phosphorus Level 2.3, Magnesium Level 1.7, Total Bilirubin 0.4, Aspartate Amino Transf (AST/SGOT) 10, Alanine Aminotransferase (ALT/SGPT) 14, Alkaline Phosphatase 78, Total Protein 5.4L, Albumin 3.1L, Triglycerides Level 87, Beta-Hydroxybutyrate (Chem panel) 0.35H 06/09/21 11:25: Glucometer 216H Microbiology 06/06/21 Blood Culture - Preliminary, Resulted No growth 06/04/21 MRSA Screen - Final, Complete MRSA not isolated Laboratory Tests 06/08/21 05:05 06/09/21 04:45 A/P: Assessment: Ac systolic CHF S/P abdominal surgery on 06-06-[address] Glass - exploratory laparotomy with lysis of adhesions, release of small bowel obstruction, appendectomy Recent NSTEMI - conservative management Chronic a-fib - rate controlled - OAC with Eliquis CAD - h/o coronary stent placed 5-6 yrs ago at [facility] (follows with Dr. Craig at [facility]) - Echo on 06/06/21: LVEF 40-45%, anteroseptal hypokinesis, mild MR, PASP 65-70 mmHg COPD H/O TIA's HTN HLD Fibromyalgia Carotid arterial dz - details unknown Right hip fracture following a non-syncopal fall in May 2020 Prior GI history: 1) H/o upper and lower endoscopy on 07-04-[address] Cooper - no active bleeding; gastritis; ext and internal hemorrhoids. 2) H/o lap carmelo by Dr. Cooper on 07-04-20 Plan: Complex management due to multiple comorbidities Continue conservative management of NSTEMI For A-fib, continue dilt as needed. OAC and full anticoag being held due to recent abd surgery. Resume enoxaparin in DVT-prophylaxis dose Diuretics as needed and as tolerated Monitor lab closely and replace electrolytes as needed I spoke with her daughter (with whom she lives) and answered questions MICHELLE BREWER MD FACP FAC CCDS Jun 09, 2021 16:51
[2021-06-09 17:48] VITALS: BP 141/69
[2021-06-09] MEDS: dilTIAZem DRIP PRE-MIX 125 ML IV SCH (20:33)
[2021-06-10] MEDS: inSUlin ASPART (NovoLOG) 1 UNIT/0.01 ML (CHARGE PER UNIT) SC SCH ×4 (00:27→17:44)
[2021-06-10] MEDS: fentaNYL INJ 100 MCG/2 ML AMP IVP PRN ×7 (01:43→18:24)
[2021-06-10] MEDS: RT-ALBUTEROL/IPRATROPIUM 3 ML (DUONEB) VIAL INH SCH ×6 (02:31→21:55)
[2021-06-10 03:11] LABS: BASOPHILS # (AUTO) 0.1 10^3/uL (0.0-0.1); BASOPHILS % (AUTO) 0 % (0-10); EOSINOPHILS # (AUTO) 0.3 10^3/uL (0.0-0.3); EOSINOPHILS % (AUTO) 2 % (0-10); HEMATOCRIT 32 % (35-52); HEMOGLOBIN 9.5 g/dL (11.5-16.0); LYMPHOCYTES # (AUTO) 0.7 10^3/uL (1.0-4.0); LYMPHOCYTES % (AUTO) 5 % (12-44); MEAN CORPUSCULAR HEMOGLOBIN 29 pg (25-34); MEAN CORPUSCULAR HGB CONC 30 g/dL (32-36); MEAN CORPUSCULAR VOLUME 97 fL (80-99); MEAN PLATELET VOLUME 12.2 fL (9.0-12.2); MONOCYTES % (AUTO) 8 % (0-12); NEUTROPHILS # (AUTO) 9.9 10^3/uL (1.8-7.8); NEUTROPHILS % (AUTO) 83 % (42-75); PLATELET COUNT 182 10^3/uL (130-400); WHITE BLOOD COUNT 11.9 10^3/uL (4.3-11.0)
[2021-06-10 03:17] LABS: ALBUMIN 2.9 GM/DL (3.2-4.5); POTASSIUM 3.6 MMOL/L (3.6-5.0)
[2021-06-10 03:18] LABS: CALCIUM 8.5 MG/DL (8.5-10.1)
[2021-06-10 03:20] LABS: TOTAL PROTEIN 5.3 GM/DL (6.4-8.2)
[2021-06-10 03:21] LABS: BILIRUBIN,TOTAL 0.4 MG/DL (0.1-1.0)
[2021-06-10 03:23] LABS: CREATININE SERUM 0.93 MG/DL (0.60-1.30); PHOSPHORUS 2.3 MG/DL (2.3-4.7)
[2021-06-10] MEDS: KCL 20 MEQ TAB (K-DUR) PO SCH (03:24)
[2021-06-10 03:26] LABS: MAGNESIUM 1.4 MG/DL (1.6-2.4)
[2021-06-10] MEDS: MAGNESIUM 1 GM/100 ML IVPB 100 ML IV SCH ×2 (03:37→04:38)
[2021-06-10] MEDS: POTASSIUM CL 10MEQ/50ML IVPB 50 ML IV SCH ×2 (03:37→04:38)
[2021-06-10] MEDS: AZTREONAM INJECTION 2,000 MG in NS (IVPB) 100 ML IV SCH ×3 (05:24→22:08)
[2021-06-10 05:57] LABS: ABG OXYGEN SATURATION 98 % (94-100); ABG PCO2 55 MMHG (35-45); ABG PO2 93 MMHG (79-93); ABG TCO2 27.4 MMOL/L (21.0-31.0)
[2021-06-10 05:59] LABS: ALLENS TEST YES-POS
[2021-06-10 06:01] LABS: INSPIRED O2 2L NC; PATIENT TEMP 37.1; VENTILATOR NO
--- NOTE | 2021-06-10 06:26 | Progress Note - Surgery ---
NATO CHANEY 06/10/21 0626: Subjective Date Seen by a Provider: Jun 10, 2021 Time Seen by a Provider: 06:05 Subjective/Events-last exam Pt was alert and more talkative this morning, although she still has trouble speaking intelligibly. Pt reports she still feels SOB and has a cough. She states she has not had a bowel movement or passed gas to her knowledge. The pt mentioned she'd like to sit up today. She denies CP, palpitations, fever, N/V, and pain at this time. Her nurse reports that the pt got very confused overnight, thinking she needed to go water her plants. Her urine output is 0.463 ml/kg/hr currently. Her NG tube is clamped. Review of Systems General: No Chills; Fatigue, Malaise HEENT: No Head Aches, No Visual Changes Pulmonary: Dyspnea, Cough Cardiovascular: No: Chest Pain, Palpitations Gastrointestinal: No: Nausea, Vomiting, Abdominal Pain Genitourinary: No Dysuria; Frequency Musculoskeletal: leg pain (left leg from the cuff); No: neck pain Neurological: No: Weakness, Change in speech Focused Exam Respiratory: Accessory Muscle Use, Decreased Breath Sounds Cardiovascular: Normal Peripheral Pulses, Irregularly Irregular Peripheral Pulses: 2+ Radial Pulses (R), 2+ Radial Pulses (L) Skin: warm/dry, other (incision intact and pink; slight drainage on dressing) Objective Exam Vital Signs Date Time Temp Pulse Resp B/P (MAP) Pulse Ox O2 Delivery O2 Flow Rate FiO2 06/10/21 06:00 137 27 135/101 90 Nasal Cannula 2.00 06/10/21 05:00 112 19 137/77 92 Nasal Cannula 2.00 06/10/21 04:00 114 20 147/92 95 Nasal Cannula 2.00 06/10/21 03:10 96 Nasal Cannula 2.00 06/10/21 03:00 123 18 145/79 97 Nasal Cannula 2.00 06/10/21 02:31 92 Nasal Cannula 3.00 06/10/21 02:00 116 15 135/50 94 Nasal Cannula 2.00 06/10/21 01:00 118 19 164/94 97 Nasal Cannula 2.00 06/10/21 00:37 121 06/10/21 00:00 107 28 141/96 97 Nasal Cannula 2.00 06/09/21 23:55 93 Nasal Cannula 2.00 06/09/21 23:00 118 24 128/72 96 Nasal Cannula 2.00 06/09/21 22:01 95 Nasal Cannula 2.00 06/09/21 22:00 108 20 131/58 95 Nasal Cannula 2.00 06/09/21 21:00 106 19 170/67 98 Nasal Cannula 2.00 06/09/21 20:00 96 Nasal Cannula 2.00 06/09/21 20:00 101 15 172/86 96 Nasal Cannula 2.00 06/09/21 19:07 97 06/09/21 19:00 112 23 153/83 97 Nasal Cannula 2.00 06/09/21 18:50 Nasal Cannula 2.00 06/09/21 18:18 95 Nasal Cannula 4.00 06/09/21 18:00 126 15 151/78 97 Nasal Cannula 4.00 06/09/21 17:03 118 24 144/79 93 Nasal Cannula 4.00 06/09/21 16:00 94 Nasal Cannula 4.00 06/09/21 16:00 108 21 133/57 94 Nasal Cannula 4.00 06/09/21 15:00 108 15 144/67 97 Nasal Cannula 4.00 06/09/21 15:00 96 Nasal Cannula 4.00 06/09/21 14:00 115 16 159/89 95 Nasal Cannula 4.00 06/09/21 13:00 106 26 113/77 92 Nasal Cannula 4.00 06/09/21 12:45 104 06/09/21 12:00 112 20 125/78 93 Nasal Cannula 4.00 06/09/21 11:49 94 Nasal Cannula 4.00 06/09/21 11:20 36.3 06/09/21 11:00 114 20 144/76 95 Nasal Cannula 4.00 06/09/21 10:45 96 Nasal Cannula 4.00 06/09/21 10:00 109 23 138/72 96 Nasal Cannula 4.00 06/09/21 09:00 101 12 146/76 95 Nasal Cannula 4.00 06/09/21 08:00 102 18 146/86 96 Nasal Cannula 4.00 06/09/21 07:42 36.7 06/09/21 07:13 94 Nasal Cannula 4.00 06/09/21 07:00 97 16 151/75 96 Nasal Cannula 4.00 06/09/21 07:00 121 06/09/21 06:56 96 Nasal Cannula 4.00 I & O 06/10/21 06:59 Intake Total 1650 ml Output Total 2500 ml Balance -850 ml Capillary Refill : Less Than 3 SecondsLess Than 3 Seconds General Appearance: No Apparent Distress, Chronically ill, Obese HEENT: Other (NG tube clamped) Respiratory: Accessory Muscle Use, Decreased Breath Sounds Cardiovascular: Normal Peripheral Pulses, Irregularly Irregular Peripheral Pulses: 2+ Dorsalis Pedis (R), 2+ Left Dors-Pedis (L), 2+ Radial Pulses (R), 2+ Radial Pulses (L) Gastrointestinal: distended (Minimal), tenderness (Incisional ), other (Incisions intact and pink; slight drainage on dressing) Extremity: Normal Inspection, Other (bilat feet redness and warmth improved) Neurologic/Psychiatric: Alert, Normal Mood/Affect Skin: Normal Color, Warm/Dry Results Lab Laboratory Tests 06/09/21 11:25: Glucometer 216H 06/09/21 17:40: Glucometer 156H 06/10/21 00:22: Glucometer 182H 06/10/21 02:56: White Blood Count 11.9H, Red Blood Count 3.32L, Hemoglobin 9.5L, Hematocrit 32L, Mean Corpuscular Volume 97, Mean Corpuscular Hemoglobin 29, Mean Corpuscular Hemoglobin Concent 30L, Red Cell Distribution Width 14.7H, Platelet Count 182, Mean Platelet Volume 12.2, Immature Granulocyte % (Auto) 1, Neutrophils (%) (Auto) 83H, Lymphocytes (%) (Auto) 5L, Monocytes (%) (Auto) 8, Eosinophils (%) (Auto) 2, Basophils (%) (Auto) 0, Neutrophils # (Auto) 9.9H, Lymphocytes # (Auto) 0.7L, Monocytes # (Auto) 1.0, Eosinophils # (Auto) 0.3, Basophils # (Auto) 0.1, Immature Granulocyte # (Auto) 0.1, Sodium Level 139, Potassium Level 3.6, Chloride Level 105, Carbon Dioxide Level 21, Anion Gap 13, Blood Urea Nitrogen 16, Creatinine 0.93, Estimat Glomerular Filtration Rate 61, BUN/Creatinine Ratio 17, Glucose Level 193H, Calcium Level 8.5, Corrected Calcium 9.4, Phosphorus Level 2.3, Magnesium Level 1.4L, Total Bilirubin 0.4, Aspartate Amino Transf (AST/SGOT) 9, Alanine Aminotransferase (ALT/SGPT) 14, Alkaline Phosphatase 76, Total Protein 5.3L, Albumin 2.9L, Beta-Hydroxybutyrate (Chem panel) 1.08H 06/10/21 05:35: Glucometer 208H 06/10/21 05:45: Blood Gas Puncture Site RIGHT RADIAL, Blood Gas Patient Temperature 37.1, Arterial Blood pH 7.30*L, Arterial Blood Partial Pressure CO2 55H, Arterial Blood Partial Pressure O2 93, Arterial Blood HCO3 26, Arterial Blood Total CO2 27.4, Arterial Blood Oxygen Saturation 98, Arterial Blood Base Excess 0.0, [place] Test YES-POS, Blood Gas Ventilator Setting NO, Blood Gas Inspired Oxygen 2L NC Microbiology 06/06/21 Blood Culture - Preliminary, Resulted No growth 06/04/21 MRSA Screen - Final, Complete MRSA not isolated Assessment/Plan Assessment/Plan Assessment/Plan S/P exploratory laparotomy with lysis of adhesions, release of small bowel obstruction, and incidental appendectomy Hyperglycemia (improved-208 this a.m.) AFib NSTEMI Anticoagulation (Lovenox resumed at 40mg) Neuropathy (bilateral feet) NG tube clamped HTN (137/77 today) SOB/cough Incentive Spirometer Continue azotreonam and metronidazole Clamped NG tube- NPO (can have ice chips) Dont want to remove yet cause patient refused to have placed initially and want to try and prevent having to replace 2L NC- increase if O2 doesn't improve IVFs; drake for accurate i/o Hgb Stable Hold further lasix Monitor labs and vitals DOUG GLASS DO 06/10/21 1722: Subjective Subjective/Events-last exam Patient alert and oriented x 2 some confusion. Wants ng tube out. No bowel function. Feels weak. Denies fever sweats chills shortness of breath or chest pain. Family at bedside. Objective Exam General Appearance: No Apparent Distress, Chronically ill HEENT: Other (NG tube clamped) Neck: Normal Inspection, Non Tender Respiratory: Chest Non Tender, No Accessory Muscle Use, No Respiratory Distress Cardiovascular: No JVD, Irregularly Irregular Gastrointestinal: distended (Minimal), tenderness (Incisional ), other (Incisions intact and pink; no drainage) Extremity: Other (bilat feet less redness and warmth improved) Neurologic/Psychiatric: Alert; No Oriented x3 (oriented x 2); Normal Mood/Affect Skin: Warm/Dry, Other (less redness) Assessment/Plan Assessment/Plan Assessment/Plan S/P exploratory laparotomy with lysis of adhesions, release of small bowel obstruction, and incidental appendectomy Hyperglycemia (improved-208 this a.m.) AFib NSTEMI Anticoagulation (Lovenox resumed at 40mg) Neuropathy (bilateral feet) NG tube clamped HTN (137/77 today) SOB/cough Incentive Spirometer Continue azotreonam and metronidazole Clamped NG tube- NPO (can have ice chips) Dont want to remove yet cause patient refused to have placed initially and want to try and prevent having to replace, we discussed with patient and family will hook back up to suction and see how much return, if minimal will remove and start on sips of clears. 2L NC- increase if O2 doesn't improve IVFs; drake for accurate i/o Hgb Stable Monitor labs and vitals Supervisory-Addendum Brief Verification & Attestation Participated in pt care: history, MDM, physical Personally performed: exam, history, MDM, supervision of care Care discussed with: Medical Student Procedures: n/a Results interpretation: Verified all documentation Verification and Attestation of Medical Student E/M Service A medical student performed and documented this service in my presence. I reviewed and verified all information documented by the medical student and made modifications to such information, when appropriate. I personally performed the physical exam and medical decision making. Doug Glass, Jun 10, 2021,17:23 NATO CHANEY Jun 10, 2021 06:26 DOUG GLASS DO Jun 10, 2021 17:22
[2021-06-10] MEDS: metroNIDAZOLE 500MG/100ML IVPB 100 ML IV SCH ×2 (08:36→20:36)
[2021-06-10] MEDS: dilTIAZem DRIP PRE-MIX 125 ML IV SCH ×2 (08:37→16:04)
[2021-06-10] MEDS: PANTOPRAZOLE 40 MG (PROTONIX) VIAL IV SCH (08:37)
[2021-06-10] MEDS: ENOXAPARIN 40 MG/0.4 ML (LOVENOX) SYR SC SCH ×2 (08:37→20:36)
--- NOTE | 2021-06-10 08:38 | Progress Note - Cardiology ---
Cardiology SOAP Progress Note Subjective: Lying in bed C/O gen pain C/O SOB Objective: I&O/Vital Signs 06/10/21 06/10/21 06/10/21 06/10/21 21:00 21:55 22:00 23:00 Pulse 115 111 98 104 Resp 14 23 9 20 B/P (MAP) 153/87 153/108 145/74 Pulse Ox 94 95 96 92 O2 Delivery NIV Bilevel NIV Bilevel NIV Bilevel O2 Flow Rate 45.00 45.00 45.00 45.00 06/11/21 06/11/21 06/11/21 06/11/21 00:00 00:16 00:17 01:00 Temp 35.9 Pulse 112 103 Resp 22 B/P (MAP) 129/74 148/79 Pulse Ox 94 92 95 O2 Delivery NIV Bilevel NIV Bilevel NIV Bilevel NIV Bilevel O2 Flow Rate 45.00 40.00 2.00 40.00 FiO2 40 06/11/21 06/11/21 06/11/21 06/11/21 01:00 02:00 03:00 03:05 Pulse 103 104 101 107 Resp 23 23 17 B/P (MAP) 128/98 143/79 Pulse Ox 94 93 94 O2 Delivery NIV Bilevel NIV Bilevel O2 Flow Rate 40.00 40.00 40.00 06/11/21 06/11/21 06/11/21 06/11/21 04:00 04:00 04:00 05:00 Temp 35.9 Pulse 117 116 Resp 20 16 B/P (MAP) 116/59 143/74 Pulse Ox 92 93 87 O2 Delivery NIV Bilevel NIV Bilevel NIV Bilevel O2 Flow Rate 2.00 40.00 40.00 FiO2 40 06/11/21 06/11/21 06/11/21 06/11/21 06:00 07:00 07:00 07:38 Pulse 110 126 108 124 Resp 26 10 23 B/P (MAP) 144/50 113/88 Pulse Ox 95 95 95 O2 Delivery NIV Bilevel NIV Bilevel O2 Flow Rate 40.00 40.00 40.00 06/11/21 07:42 Temp 36.2 06/11/21 00:00 Intake Total 200 ml Output Total 2975 ml Balance -2775 ml Weight (Pounds): 219 Weight (Ounces): 1.0 Weight (Calculated Kilograms): 99.433855 Constitutional: No AAO x 3; well-developed, well-nourished Respiratory: No accessory muscle use, No respiratory distress; chest expansion is symmetric, chest is bilaterally symmetric, lungs clear to auscultation Cardiovascular: irregularly irregular; No JVD; tachycardia, S1 and S2 Gastrointestional: No audible bowel sounds; other (s/p abdominal surgery ) Extremities: no lower extremity edema bilateral Neurologic/Psychiatric: other (moves all limbs) Skin: warm/dry, other (incision intact and pink; slight drainage on dressing) Results/Procedures: Labs Laboratory Tests 06/10/21 14:15: Sodium Level 139, Potassium Level 3.9, Chloride Level 102, Carbon Dioxide Level 23, Anion Gap 14, Blood Urea Nitrogen 15, Creatinine 0.81, Estimat Glomerular Filtration Rate 72, BUN/Creatinine Ratio 19, Glucose Level 178H, Calcium Level 8.8 06/10/21 14:55: Blood Gas Puncture Site RR, Blood Gas Patient Temperature 36.1, Arterial Blood pH 7.28*L, Arterial Blood Partial Pressure CO2 60H, Arterial Blood Partial P ressure O2 77L, Arterial Blood HCO3 28H, Arterial Blood Total CO2 29.5, Arterial Blood Oxygen Saturation 96, Arterial Blood Base Excess 1.2, Eldon Test YES-POS, Blood Gas Ventilator Setting NO, Blood Gas Inspired Oxygen 3 06/10/21 16:58: Glucometer 172H 06/10/21 17:30: Glucometer 197H 06/10/21 21:43: Blood Gas Puncture Site RIGHT RADIAL, Blood Gas Patient Temperature 36, Arterial Blood pH 7.37, Arterial Blood Partial Pressure CO2 48H, Arterial Blood Partial Pressure O2 97H, Arterial Blood HCO3 28H, Arterial Blood Total CO2 29.0, Arterial Blood Oxygen Saturation 99, Arterial Blood Base Excess 2.5, Eldon Test YES-POS, Blood Gas Ventilator Setting NO, Blood Gas Inspired Oxygen 45% 06/11/21 00:19: Glucometer 165H 06/11/21 05:32: Blood Gas Puncture Site RIGHT RADIAL, Blood Gas Patient Temperature 35.9, Arterial Blood pH 7.40, Arterial Blood Partial Pressure CO2 43, Arterial Blood Partial Pressure O2 44L, Arterial Blood HCO3 27, Arterial Blood Total CO2 28.1, Arterial Blood Oxygen Saturation 84L, Arterial Blood Base Excess 2.2, Eldon Test YES-POS, Blood Gas Ventilator Setting NO, Blood Gas Inspired Oxygen 40%, White Blood Count 10.4, Red Blood Count 3.27L, Hemoglobin 9.6L, Hematocrit 32L, Mean Corpuscular Volume 97, Mean Corpuscular Hemoglobin 29, Mean Corpuscular Hemoglobin Concent 30L, Red Cell Distribution Width 14.7H, Platelet Count 196, Mean Platelet Volume 12.4H, Immature Granulocyte % (Auto) 1, Neutrophils (%) (Auto) 79H, Lymphocytes (%) (Auto) 7L, Monocytes (%) (Auto) 9, Eosinophils (%) (Auto) 3, Basophils (%) (Auto) 1, Neutrophils # (Auto) 8.1H, Lymphocytes # (Auto) 0.7L, Monocytes # (Auto) 1.0, Eosinophils # (Auto) 0.3, Basophils # ( Auto) 0.1, Immature Granulocyte # (Auto) 0.1, Sodium Level 141, Potassium Level 3.7, Chloride Level 103, Carbon Dioxide Level 24, Anion Gap 14, Blood Urea Nitrogen 16, Creatinine 0.79, Estimat Glomerular Filtration Rate 74, BUN/Creatinine Ratio 20, Glucose Level 197H, Calcium Level 8.7, Corrected Calcium 9.7, Phosphorus Level 1.9L, Magnesium Level 1.3L, Total Bilirubin 0.4, Aspartate Amino Transf (AST/SGOT) 11, Alanine Aminotransferase (ALT/SGPT) 14, Alkaline Phosphatase 72, Total Protein 5.2L, Albumin 2.8L, Triglycerides Level 8 8, Beta-Hydroxybutyrate (Chem panel) 2.61H Microbiology 06/06/21 Blood Culture - Preliminary, Resulted No growth 06/04/21 MRSA Screen - Final, Complete MRSA not isolated A/P: Assessment: Ac systolic CHF S/P abdominal surgery on 06-06-[address] Glass - exploratory laparotomy with lysis of adhesions, release of small bowel obstruction, appendectomy Recent NSTEMI - conservative management Chronic a-fib - rate uncontrolled - OAC with Eliquis CAD - h/o coronary stent placed 5-6 yrs ago at [facility] (follows with Dr. Craig at [facility]) - Echo on 06/06/21: LVEF 40-45%, anteroseptal hypokinesis, mild MR, PASP 65-70 mmHg COPD H/O TIA's HTN HLD Fibromyalgia Carotid arterial dz - details unknown Right hip fracture following a non-syncopal fall in May 2020 Prior GI history: 1) H/o upper and lower endoscopy on 07-04-[address] Cooper - no active bleeding; gastritis; ext and internal hemorrhoids. 2) H/o lap carmelo by Dr. Cooper on 07-04-20 Plan: Complex management due to multiple comorbidities Continue conservative management of NSTEMI A-fib with uncontrolled HR - d/t NPO status will restart IV Diltiazem and resume oral when able to take oral intake OAC and full anticoag being held due to recent abd surgery. Resume enoxaparin in DVT-prophylaxis dose Diuretics as needed and as tolerated Monitor lab closely and replace electrolytes as needed MELISSA WESTON Jun 10, 2021 08:38
[2021-06-10] MEDS ORDERED: FUROSEMIDE 40 MG/4 ML INJ (LASIX) IVP ONE (08:45)
--- NOTE | 2021-06-10 10:06 | Tele-ICU Progress Note ---
Subjective Date Seen by a Provider: Jun 10, 2021 Time Seen by a Provider: 10:06 Sepsis Event Evaluation Height, Weight, BMI Height: 5'63.00" Weight: 219lbs. 1.0oz. 99.314942vg; 37.00 BMI Method: Exam Exam Patient acknowledged, consented, and participated in this virtual visit which was conducted using real time audio/video Vital Signs Date Time Temp Pulse Resp B/P (MAP) Pulse Ox O2 Delivery O2 Flow Rate FiO2 06/10/21 07:53 36.7 06/10/21 07:25 93 Nasal Cannula 3.00 06/10/21 07:00 127 06/10/21 06:00 137 27 135/101 90 Nasal Cannula 2.00 06/10/21 05:00 112 19 137/77 92 Nasal Cannula 2.00 06/10/21 04:00 114 20 147/92 95 Nasal Cannula 2.00 06/10/21 03:10 96 Nasal Cannula 2.00 06/10/21 03:00 123 18 145/79 97 Nasal Cannula 2.00 06/10/21 02:31 92 Nasal Cannula 3.00 06/10/21 02:00 116 15 135/50 94 Nasal Cannula 2.00 06/10/21 01:00 118 19 164/94 97 Nasal Cannula 2.00 06/10/21 00:37 121 06/10/21 00:00 107 28 141/96 97 Nasal Cannula 2.00 06/09/21 23:55 93 Nasal Cannula 2.00 06/09/21 23:00 118 24 128/72 96 Nasal Cannula 2.00 06/09/21 22:01 95 Nasal Cannula 2.00 06/09/21 22:00 108 20 131/58 95 Nasal Cannula 2.00 06/09/21 21:00 106 19 170/67 98 Nasal Cannula 2.00 06/09/21 20:00 96 Nasal Cannula 2.00 06/09/21 20:00 101 15 172/86 96 Nasal Cannula 2.00 06/09/21 19:07 97 06/09/21 19:00 112 23 153/83 97 Nasal Cannula 2.00 06/09/21 18:50 Nasal Cannula 2.00 06/09/21 18:18 95 Nasal Cannula 4.00 06/09/21 18:00 126 15 151/78 97 Nasal Cannula 4.00 06/09/21 17:03 118 24 144/79 93 Nasal Cannula 4.00 06/09/21 16:00 94 Nasal Cannula 4.00 06/09/21 16:00 108 21 133/57 94 Nasal Cannula 4.00 06/09/21 15:00 108 15 144/67 97 Nasal Cannula 4.00 06/09/21 15:00 96 Nasal Cannula 4.00 06/09/21 14:00 115 16 159/89 95 Nasal Cannula 4.00 06/09/21 13:00 106 26 113/77 92 Nasal Cannula 4.00 06/09/21 12:45 104 06/09/21 12:00 112 20 125/78 93 Nasal Cannula 4.00 06/09/21 11:49 94 Nasal Cannula 4.00 06/09/21 11:20 36.3 06/09/21 11:00 114 20 144/76 95 Nasal Cannula 4.00 06/09/21 10:45 96 Nasal Cannula 4.00 I & O 06/10/21 07:00 Intake Total 1650 ml Output Total 2500 ml Balance -850 ml Height & Weight Height: 5'63.00" Weight: 219lbs. 1.0oz. 99.200599hp; 37.00 BMI Method: General Appearance: No Apparent Distress, Chronically ill, Obese HEENT: Other (NG tube clamped) Respiratory: Accessory Muscle Use, Decreased Breath Sounds Cardiovascular: Normal Peripheral Pulses, Irregularly Irregular Capillary Refill: Less Than 3 Seconds Peripheral Pulses: 2+ Dorsalis Pedis (R), 2+ Left Dors-Pedis (L), 2+ Radial Pulses (R), 2+ Radial Pulses (L) Gastrointestinal: distended (Minimal), tenderness (Incisional ), other (Incisions intact and pink; slight drainage on dressing) Extremity: Normal Inspection, Other (bilat feet redness and warmth improved) Neurologic/Psychiatric: Alert, Normal Mood/Affect Skin: Normal Color, Warm/Dry Results Lab Laboratory Tests 06/09/21 04:45 06/10/21 02:56 Assessment/Plan Assessment/Plan (Tele-ICU Physician , Progress Note ) Available chart/ vitals / labs / Images reviewed Video assessment done using teleICU camera, rest of exam as per RN Discussed with RN , EXAM PER RN Events overnight : NG tube still in place, cardizem gtt resumed 06/10 Afebrile FiO2 - 2l I/O = neh Drips: cardizem gtt resumed 06/10 Pressors: , hemodynamically stable Consultants: Hospital course: (05/15/21) 85yr old female admitted with SBO, CP with elevated troponin, hyperglycemia, afib rvr S/P exploratory laparotomy , INTUBATED 06/07 - EXTUBATED A/P SBO - 06/06-S/P exploratory laparotomy with lysis of adhesions, release of small bowel obstruction, and incidental appendectomy - NG tube still in place ID - started on abx empirically 06/08 - cx negative - to cont 5 d DKA- resloved OFF insulin drip -ISS A fib - RVR - rate control with cardizem gtt - starting PO as per sx and cards - AC: OFF , on proph dose of lovenox only ( was on eliquis at home ) = TO RESUME AC WHEN OK WITH SX AND CARDS Recent NSTEMI. CAD - Echo on 06/06/21: LVEF 40-45%, anteroseptal hypokinesis, mild MR, PASP 65-70 mmHg - conservative management Pulm HTN - Echo on 06/06/21: PASP 65-70 mmHg - monitor carefuly Mild hypoxia - on 2 l - - IS Nutritions - as per sx - ? potentia to start Po vs TPN soon Hyponatremia - post op - cont NS and follow Lines : right IJ 06/04 (Central Line Necessity Reviewed) Grant: + OG: Nutrition: Analgesia: Anxiety/ delirium VTE Prophylaxis: gita 100 bid Stress Ulcer Prophylaxis: ppi Plans in collaboration with bedside consultants and IM MDs. Discussed with RN to reach out if any questions or concerns A total of 32 minutes of critical care time was devoted to this patient today, required to treat and/or prevent further deterioration of critical care condition ( as above ) . ADALGISA CROCKETT MD Jun 10, 2021 10:06
--- NOTE | 2021-06-10 12:10 | Progress Note ---
Subjective Subjective/Events-last exam Afebrile, able to answer questions but difficult to understand. Objective Exam Last Set of Vital Signs Vital Signs Date Time Temp Pulse Resp B/P (MAP) Pulse Ox O2 Delivery O2 Flow Rate FiO2 06/10/21 11:00 93 Nasal Cannula 3.00 06/10/21 11:00 114 22 148/79 06/10/21 07:53 36.7 06/07/21 12:00 30 Capillary Refill : Less Than 3 SecondsLess Than 3 Seconds I&O Intake and Output 06/10/21 00:00 Intake Total 1500 ml Output Total 2950 ml Balance -1450 ml Intake Oral 0 ml IV Total 1500 ml Output Urine Total 2950 ml General: Alert, No Acute Distress Lungs: Clear to Auscultation Heart: Other (tachycardic) Abdomen: Other (mild distension) Extremities: No Edema Neuro: Other (alert, oriented x3, speech somewhat slow and unclear) Other physical findings Reports ttp everywhere she is touched Results/Procedures Lab Laboratory Tests 06/09/21 17:40: Glucometer 156H 06/10/21 00:22: Glucometer 182H 06/10/21 02:56: White Blood Count 11.9H, Red Blood Count 3.32L, Hemoglobin 9.5L, Hematocrit 32L, Mean Corpuscular Volume 97, Mean Corpuscular Hemoglobin 29, Mean Corpuscular Hemoglobin Concent 30L, Red Cell Distribution Width 14.7H, Platelet Count 182, Mean Platelet Volume 12.2, Immature Granulocyte % (Auto) 1, Neutrophils (%) (Auto) 83H, Lymphocytes (%) (Auto) 5L, Monocytes (%) (Auto) 8, Eosinophils (%) (Auto) 2, Basophils (%) (Auto) 0, Neutrophils # (Auto) 9.9H, Lymphocytes # (Auto) 0.7L, Monocytes # (Auto) 1.0, Eosinophils # (Auto) 0.3, Basophils # (Auto) 0.1, Immature Granulocyte # (Auto) 0.1, Sodium Level 139, Potassium Level 3.6, Chloride Level 105, Carbon Dioxide Level 21, Anion Gap 13, Blood Urea Nitrogen 16, Creatinine 0.93, Estimat Glomerular Filtration Rate 61, BUN/Creatinine Ratio 17, Glucose Level 193H, Calcium Level 8.5, Corrected Calcium 9.4, Phosphorus Level 2.3, Magnesium Level 1.4L, Total Bilirubin 0.4, Aspartate Amino Transf (AST/SGOT) 9, Alanine Aminotransferase (ALT/SGPT) 14, Alkaline Phosphatase 76, Total Protein 5.3L, Albumin 2.9L, Beta-Hydroxybutyrate (Chem panel) 1.08H 06/10/21 05:35: Glucometer 208H 06/10/21 05:45: Blood Gas Puncture Site RIGHT RADIAL, Blood Gas Patient Temperature 37.1, Arterial Blood pH 7.30*L, Arterial Blood Partial Pressure CO2 55H, Arterial Blood Partial Pressure O2 93, Arterial Blood HCO3 26, Arterial Blood Total CO2 27.4, Arterial Blood Oxygen Saturation 98, Arterial Blood Base Excess 0.0, Eldon Test YES-POS, Blood Gas Ventilator Setting NO, Blood Gas Inspired Oxygen 2L NC Microbiology 06/06/21 Blood Culture - Preliminary, Resulted No growth 06/04/21 MRSA Screen - Final, Complete MRSA not isolated Radiology NAME: BERNARDO BUCKLEY [facility] REC#: [id number] PT STATUS: REG ER : 1935 PHYSICIAN: EDI ONEAL MD ADMIT DATE: 06/04/21/ER FS Signed Date of Exam:06/04/21 CT ABDOMEN/PELVIS W PROCEDURE: CT abdomen and pelvis with contrast. TECHNIQUE: Multiple contiguous axial images were obtained through the abdomen and pelvis after administration of intravenous contrast. Auto Exposure Controls were utilized during the CT exam to meet ALARA standards for radiation dose reduction. All CT scans use one or more of the following dose optimizing techniques: automated exposure control, MA and/or KvP adjustment based on patient size and exam type or iterative reconstruction. INDICATION: Abdominal pain. COMPARISON: No prior studies are available for comparison. FINDINGS: Lung bases are clear. There is generalized low density throughout the liver, consistent with hepatic steatosis. No discrete liver mass is detected. Gallbladder is surgically absent. No biliary ductal dilatation is seen. Pancreas and spleen are unremarkable. No adrenal mass is detected. Right kidney contains a small cortical low-attenuation lesion in the upper pole measuring 16 mm and suggestive of a cyst. No hydronephrosis noted. Aorta is heavily calcified but nonaneurysmal. There appear to be some dilated and fluid-filled small bowel loops in the central abdomen. There is significant laxity to the anterior abdominal wall with diastasis of the rectus musculature. No definite focal abdominal wall defect is seen to suggest a ventral hernia. No bowel wall thickening is seen. There are normal-caliber small bowel loops distally and possibility of small bowel obstruction cannot be excluded. There is no free air. There is no free fluid or fluid collection. Bladder is decompressed by Grant catheter. Bony structures demonstrate compression deformity of T11 vertebral body which is near vertebra plana. There is also probable superior endplate fracture of L2. These could be chronic. There is no retropulsion. IMPRESSION: 1. Dilated small bowel loops with transition distally, concerning for small bowel obstruction. Small bowel study would be useful for further evaluation. No free air, free fluid or fluid collection is detected. 2. Probable chronic compression deformities involving T11 and L2. Dictated by: Dictated on workstation # [id number] Dict: 06/04/211912 Trans: 06/04/211938 [facility] [id number] Interpreted by: LUIS ANTONIO ARCHULETA MD Electronically signed by: LUIS ANTONIO ARCHULETA MD 06/04/211938 NAME: BERNARDO BUCKLEY [facility] REC#: [id number] PT STATUS: ADM IN : 1935 PHYSICIAN: MARK PAT DO ADMIT DATE: 06/04/21/ICU Signed Date of Exam:06/04/21 CHEST 1 VIEW, AP/PA ONLY Portable chest COMPARISON to prior study from earlier in the same day. INDICATION: Central line placement. FINDINGS: A right internal jugular central line has been placed. This terminates within the distal SVC. There are no findings of a pneumothorax. Pulmonary interstitial prominence and heart size are unchanged from prior examination. There may be a trace left-sided effusion. There is no new alveolar consolidation IMPRESSION: 1. Interval placement of a new right internal jugular central line without pneumothorax. 2. Stable prominence of the pulmonary interstitial markings. 3. Possible trace left effusion. Dictated by: Dictated on workstation # [id number] Dict: 06/04/212217 Trans: 06/04/212249 [facility] [id number] Interpreted by: JOSE D BUCKNER MD Electronically signed by: JOSE D BUCKNER MD 02/22/22 2250 Assessment/Plan Assessment/Plan (1) Small bowel obstruction Status: Acute Assessment & Plan: s/p resection, appreciate Surgery recommendations (2) DKA, type 2 Status: Resolved Assessment & Plan: s/p insulin drip, has positive beta hydroxybutyrate today but AG and bicarb remain normal. Sliding scale insulin. Qualifiers: Qualified Codes: E11.10 - Type 2 diabetes mellitus with ketoacidosis without coma (3) NSTEMI (non-ST elevated myocardial infarction) Status: Acute Assessment & Plan: Conservative management with medications, appreciate Cardiology recommendations. (4) Atrial fibrillation Status: Chronic Assessment & Plan: Requiring diltiazem drip, appreciate Cardiology recommendations. Qualifiers: Qualified Codes: I48.20 - Chronic atrial fibrillation, unspecified (5) CAD (coronary artery disease) Status: Chronic Assessment & Plan: Appreciate Cardiology recommendations Echo on 06/06/21: LVEF 40-45%, with anteroseptal hypokinesis Qualifiers: (6) Essential (primary) hypertension Status: Chronic (7) Respiratory acidosis Status: Acute Assessment & Plan: pH today remains 7.3, but metabolic acidosis is resolved- AG closed and bicarb normal, now with elevated pH, but good mental status, monitor and recheck pH later today (8) COPD (chronic obstructive pulmonary disease) Status: Chronic (9) Diabetes mellitus, type 2 Status: Chronic Qualifiers: Qualified Codes: E11.65 - Type 2 diabetes mellitus with hyperglycemia; 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
--- NOTE | 2021-06-10 14:31 | Physical Therapy Evaluation ---
PT Evaluation-General Medical Diagnosis Admission Date Jun 04, 2021 at 20:46 Medical Diagnosis: Small bowel obstruction Onset Date: Jun 04, 2021 Therapy Diagnosis Therapy Diagnosis: weakness, debility Height/Weight Height (Feet): 5 Height (Inches): 63.00 Weight (Pounds): 219 Weight (Ounces): 1.0 Precautions Precautions/Isolations: Fall Prevention, Standard Precautions Referral Physician: Quan Reason for Referral: Evaluation/Treatment Medical History Pertinent Medical History: Arthritis, CAD, DM, HTN, Neuropathy Current History Patient to ED via family with complaints of nausea, vomiting, and abdominal pain. Reviewed History: Yes Social History Home: Single Level Current Living Status: Other Family Entry Into Home: Ramp Prior Prior Level of Function SCALE: Activities may be completed with or without assistive devices. 5-Lmbvbitnkf-aspvxhu completes the activity by him/herself with no assistance from a helper. 5-Set-up or Clean-up Assistance-helper sets up or cleans up; patient completes activity. [place] assists only prior to or following the activity. 4-Supervision or Touching Assistance-helper provides verbal cues and/or touc brianda/steadying and/or contact guard assistance as patient completes activity. Assistance may be provided throughout the activity or intermittently. 3-Partial/Moderate Assistance-helper does LESS THAN HALF the effort. [place] lifts, holds or supports trunk or limbs, but provides less than half the effort. 2-Substantial/Maximal Assistance-helper does MORE THAN HALF the effort. [place] lifts or holds trunk or limbs and provides more than half the effort. 2-Pjfhmvpgd-euqtty does ALL the effort. Patient does none of the effort to complete the activity. Or, the assistance of 2 or more helpers is required for the patient to complete the activity. If activity was not attempted, code reason: 7-Patient Refused. 9-Not Applicable-not attempted and the patient did not perform the activity before the current illness, exacerbation or injury. 10-Not Attempted due to Environmental Limitations-(lack of equipment, weather restraints, etc.). 88-Not Attempted due to Medical Conditions or Safety Concerns. Bed Mobility: 6 Transfers (B,C,W/C): 6 Gait: 6 Indoor Mobility (Ambulation): Independent Prior Devices Use: Walker Patient ambulated from her chair to the bathroom about 5' without walker but used walker anytime she went greater distances. PT Evaluation-Current Subjective Patient presented lying in bed and agreed to participate in therapy. Patient is very difficult to understand. Objective Patient Orientation: Person, Place, Time, Situation Attachments: NG Tube, Oxygen, Grant Catheter, IV ROM/Strength ROM Lower Extremities WFL Strength Lower Extremities Unable to determine, patient unable to sit EOB independently to test Integumentary/Posture Bladder Incontinence: Grant Cath Neuromuscular (Tone, Coordination, Reflexes) Unable to determine Sensory Vision: Functional Hearing: Impaired Transfers Roll Left to Right (QC): 1 Sit to Lying (QC): 1 Lying to Sitting/Side of Bed(Q: 1 Patient was dependent for all bed mobility Gait Does the Patient Walk?: No and Walking Goal IS indicated Mode of Locomotion: Walk Anticipated Mode of Locomotion: Walk Balance Sitting Static: Poor Sitting Dynamic: Poor Standing Static: Poor Standing Dynamic: Poor Assessment/Needs Patient attempted to sit EOB during evaluation today but was dependent for all parts of the transfer. Patient's family reported that she doesn't walk very much at home. Patient was unable to sit EOB without max assistance to keep her from f alling. Patient requires skilled therapy to increase strength and function to return to PLOF. Patient in bed post treatment with all needs met, nursing notified, call light in hand, and family in the room. Rehab Potential: Guarded Equipment Needs Unsure at this time. Patient has a FWW and shower bench per family report PT Halfway Goals Halfway Goals PT Halfway Goals Time Frame: Jun 22, 2021 Roll Left & Right (QC): 4 Sit to Lying (QC): 4 Lying-Sitting on Side/Bed(QC): 4 Sit to Stand (QC): 4 Chair/Vus-tv-Twprl Xfer(QC): 4 Toilet Transfer (QC): 4 Does the Patient Walk: Yes Walk 10 feet (QC): 4 Walk 50ft with 2 Turns (QC): 3 Walk 150 ft (QC): 3 PT Plan Problem List Problem List: Activity Tolerance, Functional Strength, Safety, Balance, Gait, Transfer, Bed Mobility, ROM Treatment/Plan Treatment Plan: Continue Plan of Care Treatment Plan: Bed Mobility, Education, Functional Activity Brandie, Functional Strength, Gait, Safety, Therapeutic Exercise, Transfers Treatment Duration: Jun 22, 2021 Frequency: 6 times per week Estimated Hrs Per Day: .25 hour per day Patient and/or Family Agrees t: Yes Safety Risks/Education Patient Education: Transfer Techniques Teaching Recipient: Patient, Family Teaching Methods: Demonstration, Discussion Response to Teaching: Reinforcement Needed Time/GCodes Time In: 1347 Time Out: 1405 Total Billed Treatment Time: 18 Total Billed Treatment 1 Visit WALT Espinoza PT Jun 10, 2021 14:31
[2021-06-10 14:52] LABS: POTASSIUM 3.9 MMOL/L (3.6-5.0)
[2021-06-10 14:53] LABS: CALCIUM 8.8 MG/DL (8.5-10.1)
[2021-06-10 14:58] LABS: CREATININE SERUM 0.81 MG/DL (0.60-1.30)
[2021-06-10 15:04] LABS: ABG BASE EXCESS 1.2 MMOL/L (-2.5-2.5); ABG OXYGEN SATURATION 96 % (94-100); ABG PCO2 60 MMHG (35-45); ABG PO2 77 MMHG (79-93); ABG TCO2 29.5 MMOL/L (21.0-31.0)
[2021-06-10 15:05] LABS: ABG PH 7.28 (7.37-7.43); ALLENS TEST YES-POS; INSPIRED O2 3; PATIENT TEMP 36.1; VENTILATOR NO
[2021-06-10] MEDS: NS IV 1000 ML 1,000 ML IV SCH (16:05)
--- NOTE | 2021-06-10 16:56 | Progress Note - Cardiology ---
Cardiology SOAP Progress Note Subjective: Difficult to awaken Does not report cp or palp or syncope Gen malaise Objective: I&O/Vital Signs 06/10/21 06/10/21 06/10/21 06/10/21 05:00 06:00 07:00 07:00 Pulse 112 137 127 133 Resp B/P (MAP) 137/77 135/101 150/83 Pulse Ox 92 90 94 O2 Delivery Nasal Cannula Nasal Cannula Nasal Cannula O2 Flow Rate 2.00 2.00 2.00 06/10/21 06/10/21 06/10/21 06/10/21 07:25 07:53 08:00 08:00 Temp 36.7 Pulse 122 Resp 15 B/P (MAP) 157/58 Pulse Ox 93 94 92 O2 Delivery Nasal Cannula Nasal Cannula Nasal Cannula O2 Flow Rate 3.00 2.00 2.00 06/10/21 06/10/21 06/10/21 06/10/21 09:00 10:00 11:00 11:00 Pulse 115 128 114 Resp B/P (MAP) 133/88 142/91 148/79 Pulse Ox 93 94 91 93 O2 Delivery Nasal Cannula Nasal Cannula Nasal Cannula Nasal Cannula O2 Flow Rate 2.00 2.00 2.00 3.00 06/10/21 06/10/21 06/10/21 06/10/21 12:00 12:00 13:00 13:00 Pulse 115 116 124 Resp 25 16 B/P (MAP) 145/83 162/67 Pulse Ox 92 95 92 O2 Delivery Nasal Cannula Nasal Cannula Nasal Cannula O2 Flow Rate 2.00 2.00 2.00 06/10/21 06/10/21 06/10/21 06/10/21 14:00 15:00 15:07 15:48 Pulse 117 105 Resp 24 15 B/P (MAP) 156/89 141/86 Pulse Ox 91 94 94 94 O2 Delivery Nasal Cannula Nasal Cannula Nasal Cannula Nasal Cannula O2 Flow Rate 2.00 2.00 3.00 2.00 06/10/21 06/10/21 15:52 16:02 Temp 36.9 Pulse 128 Resp 18 B/P (MAP) 139/91 Pulse Ox 90 O2 Delivery Nasal Cannula O2 Flow Rate 2.00 06/10/21 00:00 Intake Total 1400 ml Output Total 2000 ml Balance -600 ml Weight (Pounds): 219 Weight (Ounces): 1.0 Weight (Calculated Kilograms): 99.620369 Constitutional: No AAO x 3; well-developed, well-nourished Respiratory: No accessory muscle use, No respiratory distress; chest expansion is symmetric, chest is bilaterally symmetric, lungs clear to auscultation Cardiovascular: irregularly irregular; No JVD; tachycardia, S1 and S2 Gastrointestional: No audible bowel sounds; other (s/p abdominal surgery ) Extremities: no lower extremity edema bilateral Neurologic/Psychiatric: other (moves all limbs) Skin: warm/dry, other (incision intact and pink; slight drainage on dressing) Results/Procedures: Labs Laboratory Tests 06/09/21 17:40: Glucometer 156H 06/10/21 00:22: Glucometer 182H 06/10/21 02:56: White Blood Count 11.9H, Red Blood Count 3.32L, Hemoglobin 9.5L, Hematocrit 32L, Mean Corpuscular Volume 97, Mean Corpuscular Hemoglobin 29, Mean Corpuscular Hemoglobin Concent 30L, Red Cell Distribution Width 14.7H, Platelet Count 182, Mean Platelet Volume 12.2, Immature Granulocyte % (Auto) 1, Neutrophils (%) (Auto) 83H, Lymphocytes (%) (Auto) 5L, Monocytes (%) (Auto) 8, Eosinophils (%) (Auto) 2, Basophils (%) (Auto) 0, Neutrophils # (Auto) 9.9H, Lymphocytes # (Auto) 0.7L, Monocytes # (Auto) 1.0, Eosinophils # (Auto) 0.3, Basophils # (Auto) 0.1, Immature Granulocyte # (Auto) 0.1, Sodium Level 139, Potassium Level 3.6, Chloride Level 105, Carbon Dioxide Level 21, Anion Gap 13, Blood Urea Nitrogen 16, Creatinine 0.93, Estimat Glomerular Filtration Rate 61, BUN/Creatinine Ratio 17, Glucose Level 193H, Calcium Level 8.5, Corrected Calcium 9.4, Phosphorus Level 2.3, Magnesium Level 1.4L, Total Bilirubin 0.4, Aspartate Amino Transf (AST/SGOT) 9, Alanine Aminotransferase (ALT/SGPT) 14, Alkaline Phosphatase 76, Total Protein 5.3L, Albumin 2.9L, Beta-Hydroxybutyrate (Chem panel) 1.08H 06/10/21 05:35: Glucometer 208H 06/10/21 05:45: Blood Gas Puncture Site RIGHT RADIAL, Blood Gas Patient Temperature 37.1, Arterial Blood pH 7.30*L, Arterial Blood Partial Pressure CO2 55H, Arterial Blood Partial Pressure O2 93, Arterial Blood HCO3 26, Arterial Blood Total CO2 27.4, Arterial Blood Oxygen Saturation 98, Arterial Blood Base Excess 0.0, [place] Test YES-POS, Blood Gas Ventilator Setting NO, Blood Gas Inspired Oxygen 2L NC 06/10/21 14:15: Sodium Level 139, Potassium Level 3.9, Chloride Level 102, Carbon Dioxide Level 23, Anion Gap 14, Blood Urea Nitrogen 15, Creatinine 0.81, Estimat Glomerular Filtration Rate 72, BUN/Creatinine Ratio 19, Glucose Level 178H, Calcium Level 8.8 06/10/21 14:55: Blood Gas Puncture Site RR, Blood Gas Patient Temperature 36.1, Arterial Blood pH 7.28*L, Arterial Blood Partial Pressure CO2 60H, Arterial Blood Partial Pressure O2 77L, Arterial Blood HCO3 28H, Arterial Blood Total CO2 29.5, Arterial Blood Oxygen Saturation 96, Arterial Blood Base Excess 1.2, Eldon Test YES-POS, Blood Gas Ventilator Setting NO, Blood Gas Inspired Oxygen 3 Microbiology 06/06/21 Blood Culture - Preliminary, Resulted No growth 06/04/21 MRSA Screen - Final, Complete MRSA not isolated A/P: Assessment: Ac systolic CHF S/P abdominal surgery on 06-06-[address] Glass - exploratory laparotomy with lysis of adhesions, release of small bowel obstruction, appendectomy Recent NSTEMI - conservative management Chronic a-fib - rate uncontrolled - OAC with Eliquis CAD - h/o coronary stent placed 5-6 yrs ago at [facility] (follows with Dr. Craig at [facility]) - Echo on 06/06/21: LVEF 40-45%, anteroseptal hypokinesis, mild MR, PASP 65-70 mmHg COPD H/O TIA's HTN HLD Fibromyalgia Carotid arterial dz - details unknown Right hip fracture following a non-syncopal fall in May 2020 Prior GI history: 1) H/o upper and lower endoscopy on 07-04-[address] Cooper - no active bleeding; gastritis; ext and internal hemorrhoids. 2) H/o lap carmelo by Dr. Cooper on 07-04-20 Plan: Complex management due to multiple comorbidities Continue conservative management of NSTEMI A-fib with uncontrolled HR - d/t NPO status will restart IV Diltiazem and resume oral when able to take oral intake OAC and full anticoag being held due to recent abd surgery. Increase enoxaparin to 40 bid Diuretics as needed and as tolerated Monitor lab closely and replace electrolytes as needed MICHELLE BREWER MD FACP FAC CCDS Jun 10, 2021 16:56
[2021-06-10 18:29] VITALS: BP 130/66
[2021-06-10 21:53] LABS: ABG BASE EXCESS 2.5 MMOL/L (-2.5-2.5); ABG OXYGEN SATURATION 99 % (94-100); ABG PCO2 48 MMHG (35-45); ABG PH 7.37 (7.37-7.43); ABG PO2 97 MMHG (79-93)
[2021-06-10 21:54] LABS: ALLENS TEST YES-POS; INSPIRED O2 45%; VENTILATOR NO
[2021-06-10 21:55] VITALS: BP 146/74
[2021-06-10 21:55] LABS: PATIENT TEMP 36
[2021-06-11] MEDS: inSUlin ASPART (NovoLOG) 1 UNIT/0.01 ML (CHARGE PER UNIT) SC SCH ×4 (00:26→17:31)
[2021-06-11] MEDS: dilTIAZem DRIP PRE-MIX 125 ML IV SCH ×3 (02:21→21:32)
[2021-06-11] MEDS: fentaNYL INJ 100 MCG/2 ML AMP IVP PRN ×4 (02:22→21:32)
[2021-06-11 03:05] VITALS: BP 143/79
[2021-06-11] MEDS: RT-ALBUTEROL/IPRATROPIUM 3 ML (DUONEB) VIAL INH SCH ×6 (03:05→22:17)
[2021-06-11 05:45] LABS: ABG BASE EXCESS 2.2 MMOL/L (-2.5-2.5); ABG OXYGEN SATURATION 84 % (94-100); ABG PCO2 43 MMHG (35-45); ABG PO2 44 MMHG (79-93); ABG TCO2 28.1 MMOL/L (21.0-31.0)
[2021-06-11 05:47] LABS: ALLENS TEST YES-POS; INSPIRED O2 40%; PATIENT TEMP 35.9; VENTILATOR NO
[2021-06-11 05:48] LABS: BASOPHILS # (AUTO) 0.1 10^3/uL (0.0-0.1); BASOPHILS % (AUTO) 1 % (0-10); EOSINOPHILS # (AUTO) 0.3 10^3/uL (0.0-0.3); EOSINOPHILS % (AUTO) 3 % (0-10); HEMATOCRIT 32 % (35-52); HEMOGLOBIN 9.6 g/dL (11.5-16.0); LYMPHOCYTES # (AUTO) 0.7 10^3/uL (1.0-4.0); LYMPHOCYTES % (AUTO) 7 % (12-44); MEAN CORPUSCULAR HEMOGLOBIN 29 pg (25-34); MEAN CORPUSCULAR HGB CONC 30 g/dL (32-36); MEAN CORPUSCULAR VOLUME 97 fL (80-99); MEAN PLATELET VOLUME 12.4 fL (9.0-12.2); MONOCYTES % (AUTO) 9 % (0-12); NEUTROPHILS # (AUTO) 8.1 10^3/uL (1.8-7.8); NEUTROPHILS % (AUTO) 79 % (42-75); PLATELET COUNT 196 10^3/uL (130-400); WHITE BLOOD COUNT 10.4 10^3/uL (4.3-11.0)
[2021-06-11 05:57] LABS: ALBUMIN 2.8 GM/DL (3.2-4.5); POTASSIUM 3.7 MMOL/L (3.6-5.0)
[2021-06-11] MEDS: AZTREONAM INJECTION 2,000 MG in NS (IVPB) 100 ML IV SCH ×3 (05:57→22:52)
[2021-06-11 05:58] LABS: CALCIUM 8.7 MG/DL (8.5-10.1)
[2021-06-11] MEDS: KCL 20 MEQ TAB (K-DUR) PO SCH (05:59)
[2021-06-11] MEDS: POTASSIUM CL 10MEQ/50ML IVPB 50 ML IV SCH (05:59)
[2021-06-11 06:00] LABS: TOTAL PROTEIN 5.2 GM/DL (6.4-8.2)
[2021-06-11 06:01] LABS: BILIRUBIN,TOTAL 0.4 MG/DL (0.1-1.0)
[2021-06-11 06:03] LABS: CREATININE SERUM 0.79 MG/DL (0.60-1.30); PHOSPHORUS 1.9 MG/DL (2.3-4.7)
[2021-06-11 06:06] LABS: MAGNESIUM 1.3 MG/DL (1.6-2.4)
[2021-06-11] MEDS: MAGNESIUM 1 GM/100 ML IVPB 100 ML IV SCH ×4 (06:15→09:07)
--- NOTE | 2021-06-11 06:59 | Progress Note - Surgery ---
BRIAN VILLEDA 06/11/21 0659: Subjective Date Seen by a Provider: Jun 11, 2021 Time Seen by a Provider: 06:41 Subjective/Events-last exam Pt was alert and cooperative this morning. She has been started on BIPAP at 40LPM w/ FiO2 of 40. Acidosis has resolved since starting BIPAP. Reports that she has had a bowel movement today and is unsure if she has been having episodes of flatus. NG tube is still in place and clamped. She believes that her incision wound is healing well. Review of Systems General: No Chills, No Other (fever) HEENT: No Visual Changes; Ear Pain (right) Pulmonary: Cough Cardiovascular: No: Chest Pain, Palpitations Gastrointestinal: No: Nausea, Vomiting, Abdominal Pain Musculoskeletal: foot pain; No: back pain Neurological: Numbness (in fingers); No: Weakness Objective Exam Vital Signs Date Time Temp Pulse Resp B/P (MAP) Pulse Ox O2 Delivery O2 Flow Rate FiO2 06/11/21 06:00 110 26 144/50 95 NIV Bilevel 40.00 06/11/21 05:00 116 16 143/74 87 NIV Bilevel 40.00 06/11/21 04:00 117 20 116/59 93 NIV Bilevel 40.00 06/11/21 04:00 35.9 06/11/21 04:00 92 NIV Bilevel 2.00 40 06/11/21 03:05 107 17 94 40.00 06/11/21 03:00 101 23 143/79 93 NIV Bilevel 40.00 06/11/21 02:00 104 23 128/98 94 NIV Bilevel 40.00 06/11/21 01:00 103 06/11/21 01:00 103 148/79 95 NIV Bilevel 40.00 06/11/21 00:17 92 NIV Bilevel 2.00 40 06/11/21 00:16 35.9 NIV Bilevel 40.00 06/11/21 00:00 112 22 129/74 94 NIV Bilevel 45.00 06/10/21 23:00 104 20 145/74 92 NIV Bilevel 45.00 06/10/21 22:00 98 9 153/108 96 NIV Bilevel 45.00 06/10/21 21:55 111 23 95 45.00 06/10/21 21:00 115 14 153/87 94 NIV Bilevel 45.00 06/10/21 20:00 109 21 118/59 94 NIV Bilevel 45.00 06/10/21 20:00 94 NIV Bilevel 2.00 50 06/10/21 19:56 36.2 06/10/21 19:00 134 06/10/21 19:00 134 15 130/75 94 NIV Bilevel 45.00 06/10/21 18:29 111 17 94 45.00 06/10/21 18:00 129 20 130/66 94 NIV Bilevel 45.00 06/10/21 17:00 111 31 141/69 94 Nasal Cannula 2.00 06/10/21 16:02 128 18 139/91 90 Nasal Cannula 2.00 06/10/21 15:52 36.9 06/10/21 15:48 94 Nasal Cannula 2.00 06/10/21 15:07 94 Nasal Cannula 3.00 06/10/21 15:00 105 15 141/86 94 Nasal Cannula 2.00 06/10/21 14:00 117 24 156/89 91 Nasal Cannula 2.00 06/10/21 13:00 124 16 162/67 92 Nasal Cannula 2.00 06/10/21 13:00 116 06/10/21 12:00 95 Nasal Cannula 2.00 06/10/21 12:00 115 25 145/83 92 Nasal Cannula 2.00 06/10/21 11:00 93 Nasal Cannula 3.00 06/10/21 11:00 114 22 148/79 91 Nasal Cannula 2.00 06/10/21 10:00 128 22 142/91 94 Nasal Cannula 2.00 06/10/21 09:00 115 28 133/88 93 Nasal Cannula 2.00 06/10/21 08:00 122 15 157/58 92 Nasal Cannula 2.00 06/10/21 08:00 94 Nasal Cannula 2.00 06/10/21 07:53 36.7 06/10/21 07:25 93 Nasal Cannula 3.00 06/10/21 07:00 133 26 150/83 94 Nasal Cannula 2.00 06/10/21 07:00 127 I & O 06/11/21 07:00 Intake Total 0 ml Output Total 3625 ml Balance -3625 ml Capillary Refill : Less Than 3 SecondsLess Than 3 Seconds General Appearance: No Apparent Distress, Chronically ill HEENT: Other (NG tube clamped) Neck: Normal Inspection, Non Tender, Other (Central line in place) Respiratory: Chest Non Tender, No Accessory Muscle Use, No Respiratory Distress Cardiovascular: Normal Peripheral Pulses, Irregularly Irregular, Tachycardia Gastrointestinal: distended (Minimal), tenderness (Incisional and RUQ, RLQ), other (Incisions intact and pink; no drainage) Extremity: No Pedal Edema, Other (Tenderness of feet b/l) Neurologic/Psychiatric: Alert, Normal Mood/Affect Skin: Warm/Dry, Other Lymphatic: No Adenopathy Results Lab Laboratory Tests 06/10/21 14:15: Sodium Level 139, Potassium Level 3.9, Chloride Level 102, Carbon Dioxide Level 23, Anion Gap 14, Blood Urea Nitrogen 15, Creatinine 0.81, Estimat Glomerular Filtration Rate 72, BUN/Creatinine Ratio 19, Glucose Level 178H, Calcium Level 8.8 06/10/21 14:55: Blood Gas Puncture Site RR, Blood Gas Patient Temperature 36.1, Arterial Blood pH 7.28*L, Arterial Blood Partial Pressure CO2 60H, Arterial Blood Partial Pressure O2 77L, Arterial Blood HCO3 28H, Arterial Blood Total CO2 29.5, Arterial Blood Oxygen Saturation 96, Arterial Blood Base Excess 1.2, Eldon Test YES-POS, Blood Gas Ventilator Setting NO, Blood Gas Inspired Oxygen 3 06/10/21 16:58: Glucometer 172H 06/10/21 17:30: Glucometer 197H 06/10/21 21:43: Blood Gas Puncture Site RIGHT RADIAL, Blood Gas Patient Temperature 36, Arterial Blood pH 7.37, Arterial Blood Partial Pressure CO2 48H, Arterial Blood Partial Pressure O2 97H, Arterial Blood HCO3 28H, Arterial Blood Total CO2 29.0, Arterial Blood Oxygen Saturation 99, Arterial Blood Base Excess 2.5, Elodn Test YES-POS, Blood Gas Ventilator Setting NO, Blood Gas Inspired Oxygen 45% 06/11/21 00:19: Glucometer 165H 06/11/21 05:32: Blood Gas Puncture Site RIGHT RADIAL, Blood Gas Patient Temperature 35.9, Arterial Blood pH 7.40, Arterial Blood Partial Pressure CO2 43, Arterial Blood Partial Pressure O2 44L, Arterial Blood HCO3 27, Arterial Blood Total CO2 28.1, Arterial Blood Oxygen Saturation 84L, Arterial Blood Base Excess 2.2, [place]on Test YES-POS, Blood Gas Ventilator Setting NO, Blood Gas Inspired Oxygen 40%, White Blood Count 10.4, Red Blood Count 3.27L, Hemoglobin 9.6L, Hematocrit 32L, Mean Corpuscular Volume 97, Mean Corpuscular Hemoglobin 29, Mean Corpuscular Hemoglobin Concent 30L, Red Cell Distribution Width 14.7H, Platelet Count 196, Mean Platelet Volume 12.4H, Immature Granulocyte % (Auto) 1, Neutrophils (%) (Auto) 79H, Lymphocytes (%) (Auto) 7L, Monocytes (%) (Auto) 9, Eosinophils (%) (Auto) 3, Basophils (%) (Auto) 1, Neutrophils # (Auto) 8.1H, Lymphocytes # (Auto) 0.7L, Monocytes # (Auto) 1.0, Eosinophils # (Auto) 0.3, Basophils # (Auto) 0.1, Immature Granulocyte # (Auto) 0.1, Sodium Level 141, Potassium Level 3.7, Chloride Level 103, Carbon Dioxide Level 24, Anion Gap 14, Blood Urea Nitrogen 16, Creatinine 0.79, Estimat Glomerular Filtration Rate 74, BUN/Creatinine Ratio 20, Glucose Level 197H, Calcium Level 8.7, Corrected Calcium 9.7, Phosphorus Level 1.9L, Magnesium Level 1.3L, Total Bilirubin 0.4, Aspartate Amino Transf (AST/SGOT) 11, Alanine Aminotransferase (ALT/SGPT) 14, Alkaline Phosphatase 72, Total Protein 5.2L, Albumin 2.8L, Triglycerides Level 88, Beta-Hydroxybutyrate (Chem panel) 2.61H Microbiology 06/06/21 Blood Culture - Preliminary, Resulted No growth 06/04/21 MRSA Screen - Final, Complete MRSA not isolated Assessment/Plan Assessment/Plan Assessment/Plan S/P exploratory laparotomy with lysis of adhesions, release of small bowel obstruction, and incidental appendectomy AFib NSTEMI Neuropathy (bilateral feet) Diabetes mellitus NG tube clamped HTN DVT prophylaxis(Lovenox at 40mg) Pt is currently on BIPAP, start incentive spirometer when able Continue azotreonam and metronidazole Continue Protonix QD and Zofran PRN Clamped NG tube- NPO (can have ice chips) Do not want to remove yet cause patient refused to have placed initially and want to try and prevent having to replace, discussed with patient and family will hook back up to suction and see how much return, if minimal will remove and start on sips of clears. Pt did have BM today, unsure if passing flatus, continue to monitor IVFs; drake for accurate i/o Hgb Stable Monitor labs and vitals Followed by cardiology ELISA ZAMAN DO 06/11/21 1651: Subjective Subjective/Events-last exam On bipap. Small bm this morning. Overall uncomfortable. Not getting out of bed. NPO. NG tube to LIWS currently. Denies fever sweats chills or chest pain. Objective Exam General Appearance: No Apparent Distress, Chronically ill HEENT: PERRL/EOMI, Other (NG tube ) Neck: Normal Inspection, Non Tender, Other (Central line in place) Respiratory: Chest Non Tender, No Accessory Muscle Use, No Respiratory Distress Cardiovascular: No JVD, Irregularly Irregular Gastrointestinal: non tender, soft, distended (Minimal), tenderness (Incisional ), other (Incisions intact and pink; no drainage) Extremity: Normal Inspection, Normal Range of Motion, Other (Tenderness of feet b/l) Neurologic/Psychiatric: Alert, Normal Mood/Affect Skin: Normal Color, Warm/Dry Lymphatic: No Adenopathy Assessment/Plan Assessment/Plan Assessment/Plan S/P exploratory laparotomy with lysis of adhesions, release of small bowel obstruction, and incidental appendectomy AFib NSTEMI Neuropathy (bilateral feet) Diabetes mellitus NG tube clamped HTN DVT prophylaxis(Lovenox at 40mg) Pt is currently on BIPAP, start incentive spirometer when able Continue azotreonam and metronidazole Continue Protonix QD and Zofran PRN Clamp NG tube today- NPO (can have ice chips) Do not want to remove yet cause patient refused to have placed initially and want to try and prevent having to replace Pt did have small BM today, will clamp ng tube and if continues will plan r emoving it tomorrow IVFs; drake for accurate i/o Hgb Stable Monitor labs and vitals Followed by cardiology Supervisory-Addendum Brief Verification & Attestation Participated in pt care: history, MDM, physical Personally performed: exam, history, MDM, supervision of care Care discussed with: Medical Student Procedures: n/a Results interpretation: Verified all documentation Verification and Attestation of Medical Student E/M Service A medical student performed and documented this service in my presence. I reviewed and verified all information documented by the medical student and made modifications to such information, when appropriate. I personally performed the physical exam and medical decision making. Komal Cherry 1, 2022,16:50 BRIAN VILLEDA Jun 11, 2021 06:59 ELISA ZAMAN DO Jun 11, 2021 16:51
[2021-06-11] MEDS ORDERED: POTASSIUM PHOSPHATE INJ 30 MM in NS (IVPB) 250 ML IV ONE (07:30)
[2021-06-11 07:38] VITALS: BP 114/80
[2021-06-11] MEDS: PANTOPRAZOLE 40 MG (PROTONIX) VIAL IV SCH (08:07)
[2021-06-11] MEDS: metroNIDAZOLE 500MG/100ML IVPB 100 ML IV SCH ×2 (08:07→21:30)
[2021-06-11] MEDS: ENOXAPARIN 40 MG/0.4 ML (LOVENOX) SYR SC SCH ×2 (08:08→21:32)
--- NOTE | 2021-06-11 08:53 | Progress Note - Cardiology ---
Cardiology SOAP Progress Note Subjective: More alert today Daughter at the bedside Feels SOB is better No c/o CP Objective: I&O/Vital Signs 06/12/21 06/12/21 06/12/21 06/12/21 21:00 22:00 22:49 23:00 Pulse 97 92 92 101 Resp B/P (MAP) 135/64 137/99 125/89 Pulse Ox 99 97 95 96 O2 Delivery NIV Bilevel NIV Bilevel NIV Bilevel O2 Flow Rate 28.00 28.00 28.00 28.00 06/12/21 06/13/21 06/13/21 06/13/21 23:59 00:00 01:00 01:00 Pulse 87 97 112 Resp B/P (MAP) 137/86 139/75 Pulse Ox 95 92 95 O2 Delivery NIV Bilevel NIV Bilevel NIV Bilevel O2 Flow Rate 28.00 28.00 FiO2 28 06/13/21 06/13/21 06/13/21 06/13/21 02:00 02:52 03:00 04:00 Pulse 96 93 103 105 Resp B/P (MAP) 137/77 119/55 129/59 Pulse Ox 95 97 96 94 O2 Delivery NIV Bilevel NIV Bilevel NIV Bilevel O2 Flow Rate 28.00 28.00 28.00 28.00 06/13/21 06/13/21 06/13/21 06/13/21 04:00 04:00 05:00 06:00 Temp 37.0 Pulse 104 105 Resp B/P (MAP) 137/78 143/73 Pulse Ox 95 96 95 O2 Delivery NIV Bilevel NIV Bilevel NIV Bilevel O2 Flow Rate 28.00 28.00 FiO2 28 06/13/21 06/13/21 06:49 07:26 Temp 37.5 Pulse 93 Resp 23 Pulse Ox 95 O2 Flow Rate 28.00 06/13/21 00:00 Intake Total 300 ml Output Total 400 ml Balance -100 ml Weight (Pounds): 219 Weight (Ounces): 1.0 Weight (Calculated Kilograms): 99.978166 Constitutional: No AAO x 3; well-developed, well-nourished Respiratory: No accessory muscle use, No respiratory distress; chest expansion is symmetric, chest is bilaterally symmetric, lungs clear to auscultation Cardiovascular: irregularly irregular; No JVD; tachycardia, S1 and S2 Gastrointestional: No audible bowel sounds; other (s/p abdominal surgery ) Extremities: no lower extremity edema bilateral Neurologic/Psychiatric: other (moves all limbs) Skin: warm/dry, other (incision intact and pink; slight drainage on dressing) Results/Procedures: Labs Laboratory Tests 06/12/21 12:38: Glucometer 174H 06/12/21 17:16: Glucometer 192H 06/13/21 00:02: Glucometer 175H 06/13/21 05:20: White Blood Count 8.5, Red Blood Count 3.30L, Hemoglobin 9.7L, Hematocrit 32L, Mean Corpuscular Volume 97, Mean Corpuscular Hemoglobin 29, Mean Corpuscular Hemoglobin Concent 30L, Red Cell Distribution Width 15.0H, Platelet Count 211, Mean Platelet Volume 11.8, Immature Granulocyte % (Auto) 3, Neutrophils (%) (Auto) 76H, Lymphocytes (%) (Auto) 7L, Monocytes (%) (Auto) 9, Eosinophils (%) (Auto) 4, Basophils (%) (Auto) 1, Neutrophils # (Auto) 6.5, Lymphocytes # (Auto) 0.6L, Monocytes # (Auto) 0.8, Eosinophils # (Auto) 0.4H, Basophils # (Auto) 0.1, Immature Granulocyte # (Auto) 0.3H, Sodium Level 143, Potassium Level 3.9, Chloride Level 106, Carbon Dioxide Level 20L, Anion Gap 17H, Blood Urea Nitrogen 21H, Creatinine 0.81, Estimat Glomerular Filtration Rate 72, BUN/Creatinine Rati o 26, Glucose Level 237H, Calcium Level 8.6, Corrected Calcium 9.6, Phosphorus Level 2.5, Magnesium Level 1.8, Total Bilirubin 0.3, Aspartate Amino Transf (AST/SGOT) 11, Alanine Aminotransferase (ALT/SGPT) 15, Alkaline Phosphatase 60, Total Protein 5.2L, Albumin 2.7L, Beta-Hydroxybutyrate (Chem panel) 4.09H Microbiology 06/06/21 Blood Culture - Final, Complete No growth 06/04/21 MRSA Screen - Final, Complete MRSA not isolated A/P: Assessment: Ac systolic CHF - clinically improved S/P abdominal surgery on 06-06-[address] Glass - exploratory laparotomy with lysis of adhesions, release of small bowel obs truction, appendectomy Recent NSTEMI - conservative management Chronic a-fib - rate uncontrolled - OAC with Eliquis - currently being held d/t recent abd surgery CAD - h/o coronary stent placed 5-6 yrs ago at [facility] (follows with Dr. Craig at [facility]) - Echo on 06/06/21: LVEF 40-45%, anteroseptal hypokinesis, mild MR, PASP 65-70 mmHg COPD H/O TIA's HTN HLD Fibromyalgia Carotid arterial dz - details unknown Right hip fracture following a non-syncopal fall in May 2020 Prior GI history: 1) H/o upper and lower endoscopy on 07-04-[address] Cooper - no active bleeding; gastritis; ext and internal hemorrhoids. 2) H/o lap carmelo by Dr. Cooper on 07-04-20 Plan: Complex management due to multiple comorbidities Continue conservative management of NSTEMI A-fib with uncontrolled HR - d/t NPO status continue IV Diltiazem and resume oral when able to take oral intake - add IV BB OAC and full anticoag being held due to recent abd surgery. Increase enoxaparin to 40 bid Diuretics as needed and as tolerated Monitor lab closely and replace electrolytes as needed MELISSA WESTON Jun 11, 2021 08:52
[2021-06-11] MEDS ORDERED: meTOprolol 5 MG/5 ML (LOPRESSOR) VIAL IV ONE (09:00)
[2021-06-11] MEDS: NS IV 1000 ML 1,000 ML IV SCH (09:50)
--- NOTE | 2021-06-11 09:50 | Physical Therapy Daily Note ---
PT Daily Note-Current Subjective Patient in bed pre tx, agrees to PT, voices no complaints of pain but also doesn't communicate much. Appearance Patient in bed post tx with nurse call, phone, tray, all needs met, family in room. Mental Status Patient Orientation: Person, Unable to Assess Attachments: NG Tube, SCD's, Oxygen, Grant Catheter, IV Transfers SCALE: Activities may be completed with or without assistive devices. 2-[id number] completes the activity by him/herself with no assistance from a helper. 5-Set-up or Clean-up Assistance-helper sets up or cleans up; patient completes activity. [place] assists only prior to or following the activity. 4-Supervision or Touching Assistance-helper provides verbal cues and/or touching/steadying and/or contact guard assistance as patient completes activity. Assistance may be provided throughout the activity or intermittently. 3-Partial/Moderate Assistance-helper does LESS THAN HALF the effort. [place] lifts, holds or supports trunk or limbs, but provides less than half the effort. 2-Substantial/Maximal Assistance-helper does MORE THAN HALF the effort. [place] lifts or holds trunk or limbs and provides more than half the effort. 7-Crnbedmqb-suhlsp does ALL the effort. Patient does none of the effort to complete the activity. Or, the assistance of 2 or more helpers is required for the patient to complete the activity. If activity was not attempted, code reason: 7-Patient Refused. 9-Not Applicable-not attempted and the patient did not perform the activity before the current illness, exacerbation or injury. 10-Not Attempted due to Environmental Limitations-(lack of equipment, weather restraints, etc.). 88-Not Attempted due to Medical Conditions or Safety Concerns. Roll Left & Right (QC): 2 Sit to Lying (QC): 1 Lying to Sitting/Side of Bed(Q: 1 Sit to Stand (QC): 1 Patient is assist of 2 for supine to sit, max assist to scoot forward, is dependent to max assist to maintain sitting balance. Her O2 drops to low 80's with sitting but comes back up to 90% with purse lip breathing, attempted to stand and she did with max assist but only for about 10 seconds, she was not able to take any steps to the head of the bed, when sitting therapist angled patient to sit further up toward the head of the bed, dependent assist of 2 to lay back down. Treatments sitting, standing Assessment Current Status: Poor Progress severe debility, drop in O2 with activity PT Jail Goals [place] Drier Operator Goals PT [place] D[place] Operator Goals Time Frame: Jun 22, 2021 Roll Left & Right (QC): 4 Sit to Lying (QC): 4 Lying-Sitting on Side/Bed(QC): 4 Sit to Stand (QC): 4 Chair/[id number] Xfer(QC): 4 Toilet Transfer (QC): 4 Does the Patient Walk: Yes Walk 10 feet (QC): 4 Walk 50ft with 2 Turns (QC): 3 Walk 150 ft (QC): 3 PT Plan Problem List Problem List: Activity Tolerance, Functional Strength, Safety, Balance, Gait, Transfer, Bed Mobility, ROM Treatment/Plan Treatment Plan: Continue Plan of Care Treatment Plan: Bed Mobility, Education, Functional Activity Brandie, Functional Strength, Gait, Safety, Therapeutic Exercise, Transfers Treatment Duration: Jun 22, 2021 Frequency: 6 times per week Estimated Hrs Per Day: .25 hour per day Patient and/or Family Agrees t: Yes Safety Risks/Education Patient Education: Correct Positioning, Safety Issues Teaching Recipient: Patient Teaching Methods: Demonstration, Discussion Response to Teaching: Reinforcement Needed Time/GCodes Time In: 914 Time Out: 932 Total Billed Treatment Time: 18 Total Billed Treatment 1 visit FA 18' NEETA RIVERA PT Jun 11, 2021 09:50
--- NOTE | 2021-06-11 10:07 | Tele-ICU Progress Note ---
Subjective Date Seen by a Provider: Jun 11, 2021 Time Seen by a Provider: 10:04 Sepsis Event Evaluation Height, Weight, BMI Height: 5'63.00" Weight: 219lbs. 1.0oz. 99.431394kq; 37.00 BMI Method: Exam Exam Patient acknowledged, consented, and participated in this virtual visit which was conducted using real time audio/video Vital Signs Date Time Temp Pulse Resp B/P (MAP) Pulse Ox O2 Delivery O2 Flow Rate FiO2 06/11/21 09:45 93 125/60 95 NIV Bilevel 40.00 06/11/21 09:30 86 35 140/99 94 NIV Bilevel 40.00 06/11/21 09:15 101 24 131/89 97 NIV Bilevel 40.00 06/11/21 09:00 95 30 137/70 96 NIV Bilevel 40.00 06/11/21 08:45 112 24 126/79 96 NIV Bilevel 40.00 06/11/21 08:30 107 16 141/76 94 NIV Bilevel 40.00 06/11/21 08:15 104 18 134/95 94 NIV Bilevel 40.00 06/11/21 08:00 105 17 125/78 95 NIV Bilevel 40.00 06/11/21 07:45 105 18 122/68 95 NIV Bilevel 40.00 06/11/21 07:42 36.2 06/11/21 07:38 124 23 95 40.00 06/11/21 07:30 89 27 114/80 94 NIV Bilevel 40.00 06/11/21 07:15 110 17 132/66 95 NIV Bilevel 40.00 06/11/21 07:00 108 10 113/88 95 NIV Bilevel 40.00 06/11/21 07:00 126 06/11/21 06:00 110 26 144/50 95 NIV Bilevel 40.00 06/11/21 05:00 116 16 143/74 87 NIV Bilevel 40.00 06/11/21 04:00 117 20 116/59 93 NIV Bilevel 40.00 06/11/21 04:00 35.9 06/11/21 04:00 92 NIV Bilevel 2.00 40 06/11/21 03:05 107 17 94 40.00 06/11/21 03:00 101 23 143/79 93 NIV Bilevel 40.00 06/11/21 02:00 104 23 128/98 94 NIV Bilevel 40.00 06/11/21 01:00 103 06/11/21 01:00 103 148/79 95 NIV Bilevel 40.00 06/11/21 00:17 92 NIV Bilevel 2.00 40 06/11/21 00:16 35.9 NIV Bilevel 40.00 06/11/21 00:00 112 22 129/74 94 NIV Bilevel 45.00 06/10/21 23:00 104 20 145/74 92 NIV Bilevel 45.00 06/10/21 22:00 98 9 153/108 96 NIV Bilevel 45.00 06/10/21 21:55 111 23 95 45.00 06/10/21 21:00 115 14 153/87 94 NIV Bilevel 45.00 06/10/21 20:00 109 21 118/59 94 NIV Bilevel 45.00 06/10/21 20:00 94 NIV Bilevel 2.00 50 06/10/21 19:56 36.2 06/10/21 19:00 134 06/10/21 19:00 134 15 130/75 94 NIV Bilevel 45.00 06/10/21 18:29 111 17 94 45.00 06/10/21 18:00 129 20 130/66 94 NIV Bilevel 45.00 06/10/21 17:00 111 31 141/69 94 Nasal Cannula 2.00 06/10/21 16:02 128 18 139/91 90 Nasal Cannula 2.00 06/10/21 15:52 36.9 06/10/21 15:48 94 Nasal Cannula 2.00 06/10/21 15:07 94 Nasal Cannula 3.00 06/10/21 15:00 105 15 141/86 94 Nasal Cannula 2.00 06/10/21 14:00 117 24 156/89 91 Nasal Cannula 2.00 06/10/21 13:00 124 16 162/67 92 Nasal Cannula 2.00 06/10/21 13:00 116 06/10/21 12:00 95 Nasal Cannula 2.00 06/10/21 12:00 115 25 145/83 92 Nasal Cannula 2.00 06/10/21 11:00 93 Nasal Cannula 3.00 06/10/21 11:00 114 22 148/79 91 Nasal Cannula 2.00 I & O 06/11/21 07:00 Intake Total 425 ml Output Total 3625 ml Balance -3200 ml Height & Weight Height: 5'63.00" Weight: 219lbs. 1.0oz. 99.355947mi; 37.00 BMI Method: General Appearance: No Apparent Distress, Chronically ill HEENT: Other (NG tube clamped) Neck: Normal Inspection, Non Tender, Other (Central line in place) Respiratory: Chest Non Tender, No Accessory Muscle Use, No Respiratory Distress Cardiovascular: Normal Peripheral Pulses, Irregularly Irregular, Tachycardia Capillary Refill: Less Than 3 Seconds Gastrointestinal: distended (Minimal), tenderness (Incisional and RUQ, RLQ), other (Incisions intact and pink; no drainage) Extremity: No Pedal Edema, Other (Tenderness of feet b/l) Neurologic/Psychiatric: Alert, Normal Mood/Affect Skin: Warm/Dry, Other Lymphatic: No Adenopathy Results Lab Laboratory Tests 06/10/21 02:56 06/10/21 14:15 06/11/21 05:32 Assessment/Plan Assessment/Plan Tele-ICU Physician , Progress Note ) Available chart/ vitals / labs / Images reviewed Video assessment done using teleICU camera, rest of exam as per RN Discussed with RN , EXAM PER RN Events overnight : NG tube still in place, cardizem gtt BIPAP 12/ for resp acidosis Afebrile FiO2 - 2l I/O = neh Drips: cardizem gtt resumed 06/10 Pressors: , hemodynamically stable Consultants: Hospital course: (05/15/21) 85yr old female admitted with SBO, CP with elevated troponin, hyperglycemia, afib rvr . S/P exploratory laparotomy , INTUBATED 06/07 - EXTUBATED 06/10 - BIPAP 12/6 for resp acidosis A/P SBO - 06/06-S/P exploratory laparotomy with lysis of adhesions, release of small bowel obstruction, and incidental appendectomy - NG tube still in place Acute hypercarbic resp failure - BIPAP 12/6 for resp acidosis = responded well - will try to take off today and follow , most likel will keep "on" for next night ID - started on abx empirically 06/08 - cx negative - to cont 5 d DKA- resloved OFF insulin drip -ISS A fib - RVR - rate control with cardizem gtt - starting PO as per sx and cards - AC: OFF , on lovenox 40 bid ( was on eliquis at home ) = TO RESUME AC WHEN OK WITH SX AND CARDS Recent NSTEMI. CAD - Echo on 06/06/21: LVEF 40-45%, anteroseptal hypokinesis, mild MR, PASP 65-70 mmHg - conservative management Pulm HTN - Echo on 06/06/21: PASP 65-70 mmHg - monitor carefuly Nutritions - as per sx - ? potentia to start Po vs TPN soon Hyponatremia - post op - resolved Lines : right IJ 06/04 (Central Line Necessity Reviewed) Grant: + OG: Nutrition: Analgesia: Anxiety/ delirium VTE Prophylaxis: gita 40 bid Stress Ulcer Prophylaxis: ppi Plans in collaboration with bedside consultants and IM MDs. Discussed with RN to reach out if any questions or concerns A total of 32 minutes of critical care time was devoted to this patient today, required to treat and/or prevent further deterioration of critical care condition ( as above ) . ADALGISA CROCKETT MD Jun 11, 2021 10:07
--- NOTE | 2021-06-11 10:49 | Progress Note ---
Subjective Subjective/Events-last exam Pt reclining in bed, daughter at bedside visiting. Pt states she feels "rotten". When asked to clarify, she says she had a rough night. She is diffusely uncomfortable, and complains that her lungs hurt. She did have a small bowel movement this morning. She was on bipap overnight. Objective Exam Last Set of Vital Signs Vital Signs Date Time Temp Pulse Resp B/P (MAP) Pulse Ox O2 Delivery O2 Flow Rate FiO2 06/11/21 10:36 95 Nasal Cannula 4.00 06/11/21 10:00 72 31 109/52 06/11/21 07:42 36.2 06/11/21 04:00 40 Capillary Refill : Less Than 3 SecondsLess Than 3 Seconds I&O Intake and Output 06/11/21 00:00 Intake Total 350 ml Output Total 3575 ml Balance -3225 ml Intake Oral 0 ml IV Total 350 ml Output Urine Total 3075 ml Gastric Drainage Total 500 ml General: Alert, No Acute Distress Lungs: Clear to Auscultation Heart: Regular Rate Abdomen: Other (hypoactive bowel sounds, incision clean, dry and intact with janie in place in midline) Extremities: No Edema Neuro: Normal Speech Psych/Mental Status: Mood NL Results/Procedures Lab Laboratory Tests 06/10/21 14:15: Sodium Level 139, Potassium Level 3.9, Chloride Level 102, Carbon Dioxide Level 23, Anion Gap 14, Blood Urea Nitrogen 15, Creatinine 0.81, Estimat Glomerular Filtration Rate 72, BUN/Creatinine Ratio 19, Glucose Level 178H, Calcium Level 8.8 06/10/21 14:55: Blood Gas Puncture Site RR, Blood Gas Patient Temperature 36.1, Arterial Blood pH 7.28*L, Arterial Blood Partial Pressure CO2 60H, Arterial Blood Partial Pressure O2 77L, Arterial Blood HCO3 28H, Arterial Blood Total CO2 29.5, Arterial Blood Oxygen Saturation 96, Arterial Blood Base Excess 1.2, Eldon Test YES-POS, Blood Gas Ventilator Setting NO, Blood Gas Inspired Oxygen 3 06/10/21 16:58: Glucometer 172H 06/10/21 17:30: Glucometer 197H 06/10/21 21:43: Blood Gas Puncture Site RIGHT RADIAL, Blood Gas Patient Temperature 36, Arterial Blood pH 7.37, Arterial Blood Partial Pressure CO2 48H, Arterial Blood Partial Pressure O2 97H, Arterial Blood HCO3 28H, Arterial Blood Total CO2 29.0, Arterial Blood Oxygen Saturation 99, Arterial Blood Base Excess 2.5, Eldon Test YES-POS, Blood Gas Ventilator Setting NO, Blood Gas Inspired Oxygen 45% 06/11/21 00:19: Glucometer 165H 06/11/21 05:32: Blood Gas Puncture Site RIGHT RADIAL, Blood Gas Patient Temperature 35.9, Arterial Blood pH 7.40, Arterial Blood Partial Pressure CO2 43, Arterial Blood Partial Pressure O2 44L, Arterial Blood HCO3 27, Arterial Blood Total CO2 28.1, Arterial Blood Oxygen Saturation 84L, Arterial Blood Base Excess 2.2, Eldon Test YES-POS, Blood Gas Ventilator Setting NO, Blood Gas Inspired Oxygen 40%, White Blood Count 10.4, Red Blood Count 3.27L, Hemoglobin 9.6L, Hematocrit 32L, Mean Corpuscular Volume 97, Mean Corpuscular Hemoglobin 29, Mean Corpuscular Hemoglobin Concent 30L, Red Cell Distribution Width 14.7H, Platelet Count 196, Mean Platelet Volume 12.4H, Immature Granulocyte % (Auto) 1, Neutrophils (%) (Auto) 79H, Lymphocytes (%) (Auto) 7L, Monocytes (%) (Auto) 9, Eosinophils (%) (Auto) 3, Basophils (%) (Auto) 1, Neutrophils # (Auto) 8.1H, Lymphocytes # (Auto) 0.7L, Monocytes # (Auto) 1.0, Eosinophils # (Auto) 0.3, Basophils # (Auto) 0.1, Immature Granulocyte # (Auto) 0.1, Sodium Level 141, Potassium Level 3.7, Chloride Level 103, Carbon Dioxide Level 24, Anion Gap 14, Blood Urea Nitrogen 16, Creatinine 0.79, Estimat Glomerular Filtration Rate 74, BUN/Creatinine Ratio 20, Glucose Level 197H, Calcium Level 8.7, Corrected Calcium 9.7, Phosphorus Level 1.9L, Magnesium Level 1.3L, Total Bilirubin 0.4, Aspartate Amino Transf (AST/SGOT) 11, Alanine Aminotransferase (ALT/SGPT) 14, Alkaline Phosphatase 72, Total Protein 5.2L, Albumin 2.8L, Triglycerides Level 88, Beta-Hydroxybutyrate (Chem panel) 2.61H Microbiology 06/06/21 Blood Culture - Preliminary, Resulted No growth 06/04/21 MRSA Screen - Final, Complete MRSA not isolated Radiology NAME: BERNARDO BUCKLEY [facility] REC#: [id number] PT STATUS: REG ER : 1935 PHYSICIAN: EDI ONEAL MD ADMIT DATE: 06/04/21/ER FS Signed Date of Exam:06/04/21 CT ABDOMEN/PELVIS W PROCEDURE: CT abdomen and pelvis with contrast. TECHNIQUE: Multiple contiguous axial images were obtained through the abdomen and pelvis after administration of intravenous contrast. Auto Exposure Controls were utilized during the CT exam to meet ALARA standards for radiation dose reduction. All CT scans use one or more of the following dose optimizing techniques: automated exposure control, MA and/or KvP adjustment based on patient size and exam type or iterative reconstruction. INDICATION: Abdominal pain. COMPARISON: No prior studies are available for comparison. FINDINGS: Lung bases are clear. There is generalized low density throughout the liver, consistent with hepatic steatosis. No discrete liver mass is detected. Gallbladder is surgically absent. No biliary ductal dilatation is seen. Pancreas and spleen are unremarkable. No adrenal mass is detected. Right kidney contains a small cortical low-attenuation lesion in the upper pole measuring 16 mm and suggestive of a cyst. No hydronephrosis noted. Aorta is heavily calcified but nonaneurysmal. There appear to be some dilated and fluid-filled small bowel loops in the central abdomen. There is significant laxity to the anterior abdominal wall with diastasis of the rectus musculature. No definite focal abdominal wall defect is seen to suggest a ventral hernia. No bowel wall thickening is seen. There are normal-caliber small bowel loops distally and possibility of small bowel obstruction cannot be excluded. There is no free air. There is no free fluid or fluid collection. Bladder is decompressed by Grant catheter. Bony structures demonstrate compression deformity of T11 vertebral body which is near vertebra plana. There is also probable superior endplate fracture of L2. These could be chronic. There is no retropulsion. IMPRESSION: 1. Dilated small bowel loops with transition distally, concerning for small bowel obstruction. Small bowel study would be useful for further evaluation. No free air, free fluid or fluid collection is detected. 2. Probable chronic compression deformities involving T11 and L2. Dictated by: Dictated on workstation # [id number] Dict: 06/04/211912 Trans: 06/04/211938 AS6 [id number] Interpreted by: LUIS ANTONIO ARCHULETA MD Electronically signed by: LUIS ANTONIO ARCHULETA MD 06/04/211938 NAME: BERNARDO BUCKLEY [facility] REC#: [id number] PT STATUS: ADM IN : 1935 PHYSICIAN: MARK PAT DO ADMIT DATE: 06/04/21/ICU Signed Date of Exam:06/04/21 CHEST 1 VIEW, AP/PA ONLY Portable chest COMPARISON to prior study from earlier in the same day. INDICATION: Central line placement. FINDINGS: A right internal jugular central line has been placed. This terminates within the distal SVC. There are no findings of a pneumothorax. Pulmonary interstitial prominence and heart size are unchanged from prior examination. There may be a trace left-sided effusion. There is no new alveolar consolidation IMPRESSION: 1. Interval placement of a new right internal jugular central line without pneumothorax. 2. Stable prominence of the pulmonary interstitial markings. 3. Possible trace left effusion. Dictated by: Dictated on workstation # [id number] Dict: 06/04/212217 Trans: 06/04/212249 [facility] [id number] Interpreted by: JOSE D BUCKNER MD Electronically signed by: JOSE D BUCKNER MD 06/04/212249 Assessment/Plan Assessment/Plan (1) Small bowel obstruction Status: Acute Assessment & Plan: s/p exploratory laparotomy with lysis of adhesions, release of small bowel obstruction, and incidental appendectomy on 06/06, appreciate Surgery recommendations. NG remains in place, positive BM this morning. 06/11 On aztreonam and metronidazole, day 4 (2) DKA, type 2 Status: Resolved Assessment & Plan: s/p insulin drip, has positive beta hydroxybutyrate today but AG and bicarb remain normal. Sliding scale insulin. Qualifiers: Qualified Codes: E11.10 - Type 2 diabetes mellitus with ketoacidosis without coma (3) NSTEMI (non-ST elevated myocardial infarction) Status: Acute Assessment & Plan: Conservative management with medications, appreciate Cardiology recommendations. (4) Atrial fibrillation Status: Chronic Assessment & Plan: Requiring diltiazem drip, appreciate Cardiology recommendations. Qualifiers: Qualified Codes: I48.20 - Chronic atrial fibrillation, unspecified (5) CAD (coronary artery disease) Status: Chronic Assessment & Plan: Appreciate Cardiology recommendations Echo on 06/06/21: LVEF 40-45%, with anteroseptal hypokinesis Qualifiers: (6) Essential (primary) hypertension Status: Chronic (7) Respiratory acidosis Status: Resolved Assessment & Plan: 06/10 pH today remains 7.3, but metabolic acidosis is resolved- AG closed and bicarb normal, now with elevated pH, but good mental status, monitor and recheck pH later today 06/11- pH and pCO2 worsened on repeat yesterday later in day, on bipap overnight with improvement and mental status improved today as well. (8) COPD (chronic obstructive pulmonary disease) Status: Chronic Assessment & Plan: Duoneb q4, not doing well with IS, switching to acapella. Resume home fluticasone/vilanterol. (9) Diabetes mellitus, type 2 Status: Chronic Assessment & Plan: 06/11 glucose 160-197 last 24 hours, continue sliding scale, holding home glimeperide, degludec and semaglutide Qualifiers: Qualified Codes: E11.65 - Type 2 diabetes mellitus with hyperglycemia; Z79.4 - home health travel ot (current) use of insulin (10) DVT prophylaxis Status: Acute Assessment & Plan: Enoxaparin KENNA DAY MD Jun 11, 2021 10:49
[2021-06-11] MEDS: meTOprolol 5 MG/5 ML (LOPRESSOR) VIAL IV SCH ×2 (12:23→17:31)
--- NOTE | 2021-06-11 16:02 | Progress Note - Cardiology ---
Cardiology SOAP Progress Note Subjective: No cp or palp or syncope or shortness of breath at rest Vague abd discomfort No n/v/d No focal weakness Gen weakness and malaise present More alert today Objective: I&O/Vital Signs 06/11/21 06/11/21 06/11/21 06/11/21 04:00 04:00 04:00 05:00 Temp 35.9 Pulse 117 116 Resp 20 16 B/P (MAP) 116/59 143/74 Pulse Ox 92 93 87 O2 Delivery NIV Bilevel NIV Bilevel NIV Bilevel O2 Flow Rate 2.00 40.00 40.00 FiO2 40 06/11/21 06/11/21 06/11/21 06/11/21 06:00 07:00 07:00 07:15 Pulse 110 126 108 110 Resp 26 10 17 B/P (MAP) 144/50 113/88 132/66 Pulse Ox 95 95 95 O2 Delivery NIV Bilevel NIV Bilevel NIV Bilevel O2 Flow Rate 40.00 40.00 40.00 06/11/21 06/11/21 06/11/21 06/11/21 07:30 07:38 07:42 07:45 Temp 36.2 Pulse 89 124 105 Resp 27 23 18 B/P (MAP) 114/80 122/68 Pulse Ox 94 95 95 O2 Delivery NIV Bilevel NIV Bilevel O2 Flow Rate 40.00 40.00 40.00 06/11/21 06/11/21 06/11/21 06/11/21 08:00 08:15 08:18 08:30 Pulse 105 104 107 Resp 17 18 16 B/P (MAP) 125/78 134/95 141/76 Pulse Ox 95 94 94 94 O2 Delivery NIV Bilevel Nasal Cannula NIV Bilevel Nasal Cannula O2 Flow Rate 40.00 4.00 4.00 FiO2 40 06/11/21 06/11/21 06/11/21 06/11/21 08:45 09:00 09:15 09:30 Pulse 112 95 101 86 Resp 24 30 24 35 B/P (MAP) 126/79 137/70 131/89 140/99 Pulse Ox 96 96 97 94 O2 Delivery Nasal Cannula Nasal Cannula Nasal Cannula NIV Bilevel O2 Flow Rate 4.00 4.00 4.00 4.00 3/1/22 3/1/22 3/1/22 3/1/22 09:45 10:00 10:36 11:00 Pulse 93 72 101 Resp 31 15 B/P (MAP) 125/60 109/52 143/78 Pulse Ox 95 95 95 96 O2 Delivery Nasal Cannula Nasal Cannula Nasal Cannula Nasal Cannula O2 Flow Rate 4.00 4.00 4.00 4.00 06/11/21 06/11/21 06/11/21 06/11/21 12:00 12:16 12:59 13:00 Temp 36.4 Pulse 98 90 Resp 24 B/P (MAP) 125/83 Pulse Ox 91 94 O2 Delivery Nasal Cannula High Flow N/C O2 Flow Rate 4.00 4.00 06/11/21 06/11/21 06/11/21 06/11/21 13:00 14:00 14:24 15:00 Pulse 98 100 98 Resp 34 17 22 B/P (MAP) 118/72 125/81 117/73 Pulse Ox 98 98 96 94 O2 Delivery Nasal Cannula Nasal Cannula Nasal Cannula Nasal Cannula O2 Flow Rate 4.00 4.00 3.00 4.00 06/11/21 00:00 Intake Total 200 ml Output Total 2975 ml Balance -2775 ml Weight (Pounds): 219 Weight (Ounces): 1.0 Weight (Calculated Kilograms): 99.289901 Constitutional: AAO x 3, well-developed, well-nourished Respiratory: No accessory muscle use, No respiratory distress; chest expansion is symmetric, chest is bilaterally symmetric, lungs clear to auscultation Cardiovascular: irregularly irregular; No JVD; tachycardia, S1 and S2 Gastrointestional: No audible bowel sounds; other (s/p abdominal surgery ) Extremities: no lower extremity edema bilateral Neurologic/Psychiatric: other (moves all limbs) Skin: warm/dry, other (incision intact and pink; slight drainage on dressing) Results/Procedures: Labs Laboratory Tests 06/10/21 16:58: Glucometer 172H 06/10/21 17:30: Glucometer 197H 06/10/21 21:43: Blood Gas Puncture Site RIGHT RADIAL, Blood Gas Patient Temperature 36, Arterial Blood pH 7.37, Arterial Blood Partial Pressure CO2 48H, Arterial Blood Partial Pressure O2 97H, Arterial Blood HCO3 28H, Arterial Blood Total CO2 29.0, Arterial Blood Oxygen Saturation 99, Arterial Blood Base Excess 2.5, Eldon Test YES-POS, Blood Gas Ventilator Setting NO, Blood Gas Inspired Oxygen 45% 06/11/21 00:19: Glucometer 165H 06/11/21 05:32: White Blood Count 10.4, Red Blood Count 3.27L, Hemoglobin 9.6L, Hematocrit 32L, Mean Corpuscular Volume 97, Mean Corpuscular Hemoglobin 29, Mean Corpuscular Hemoglobin Concent 30L, Red Cell Distribution Width 14.7H, Platelet Count 196, Mean Platelet Volume 12.4H, Immature Granulocyte % (Auto) 1, Neutrophils (%) (Auto) 79H, Lymphocytes (%) (Auto) 7L, Monocytes (%) (Auto) 9, Eosinophils (%) (Auto) 3, Basophils (%) (Auto) 1, Neutrophils # (Auto) 8.1H, Lymphocytes # (Auto) 0.7L, Monocytes # (Auto) 1.0, Eosinophils # (Auto) 0.3, Basophils # (Auto) 0.1, Immature Granulocyte # (Auto) 0.1, Blood Gas Puncture Site RIGHT RADIAL, Blood Gas Patient Temperature 35.9, Arterial Blood pH 7.40, Arterial Blood Partial Pressure CO2 43, Arterial Blood Partial Pressure O2 44L, Arterial Blood HCO3 27, Arterial Blood Total CO2 28.1, Arterial Blood Oxygen Saturation 84L, Arterial Blood Base Excess 2.2, Eldon Test YES-POS, Blood Gas Ventilator Setting NO, Blood Gas Inspired Oxygen 40%, Sodium Level 141, Potassium Level 3.7, Chloride Level 103, Carbon Dioxide Level 24, Anion Gap 14, Blood Urea Nitrogen 16, Creatinine 0.79, Estimat Glomerular Filtration Rate 74, BUN/Creatinine Ratio 20, Glucose Level 197H, Calcium Level 8.7, Corrected Calcium 9.7, Phosphorus Level 1.9L, Magnesium Level 1.3L, Total Bilirubin 0.4, A spartate Amino Transf (AST/SGOT) 11, Alanine Aminotransferase (ALT/SGPT) 14, Alkaline Phosphatase 72, Total Protein 5.2L, Albumin 2.8L, Triglycerides Level 88, Beta-Hydroxybutyrate (Chem panel) 2.61H 06/11/21 12:31: Glucometer 188H Microbiology 06/06/21 Blood Culture - Final, Complete No growth 06/04/21 MRSA Screen - Final, Complete MRSA not isolated A/P: Assessment: Ac systolic CHF - clinically improved S/P abdominal surgery on 06-06-[address] Glass - exploratory laparotomy with lysis of adhesions, release of small bowel obstruction, appendectomy Recent NSTEMI - conservative management Chronic a-fib - rate uncontrolled - OAC with Eliquis - currently being held d/t recent abd surgery CAD - h/o coronary stent placed 5-6 yrs ago at [facility] (follows with Dr. Craig at [facility]) - Echo on 06/06/21: LVEF 40-45%, anteroseptal hypokinesis, mild MR, PASP 65-70 mmHg COPD H/O TIA's HTN HLD Fibromyalgia Carotid arterial dz - details unknown Right hip fracture following a non-syncopal fall in May 2020 Prior GI history: 1) H/o upper and lower endoscopy on 07-04-[address] Cooper - no active bleeding; gastritis; ext and internal hemorrhoids. 2) H/o lap carmelo by Dr. Cooper on 07-04-20 Plan: Complex management due to multiple comorbidities Continue conservative management of NSTEMI A-fib with uncontrolled HR - d/t NPO status continue IV Diltiazem and resume oral when able to take oral intake - add IV BB OAC and full anticoag being held due to recent abd surgery. Currently, on en oxaparin 40 bid Diuretics as needed and as tolerated Monitor lab closely and replace electrolytes as needed I was able to communicate better with her today (she was more alert). I also spoke with her daughter and answered her questions in detail MICHELLE BREWER MD [facility] Jun 11, 2021 16:02
[2021-06-11] MEDS: RT--FLUTICASONE/SALMETEROL 113-14 (AIRDUO RespiCLICK) IH SCH (19:01)
[2021-06-11 21:51] LABS: ABG BASE EXCESS 0.7 MMOL/L (-2.5-2.5); ABG OXYGEN SATURATION 99 % (94-100); ABG PCO2 60 MMHG (35-45); ABG PO2 119 MMHG (79-93); ABG TCO2 28.6 MMOL/L (21.0-31.0); ALLENS TEST YES-POS; INSPIRED O2 4L NC; VENTILATOR NO
[2021-06-11 21:52] LABS: PATIENT TEMP 37.4
[2021-06-11 21:53] LABS: ABG PH 7.27 (7.37-7.43)
[2021-06-11 22:17] VITALS: BP 111/66
[2021-06-12] MEDS: meTOprolol 5 MG/5 ML (LOPRESSOR) VIAL IV SCH ×4 (01:19→17:36)
[2021-06-12] MEDS: inSUlin ASPART (NovoLOG) 1 UNIT/0.01 ML (CHARGE PER UNIT) SC SCH ×4 (01:19→17:36)
[2021-06-12 02:56] VITALS: BP 125/77
[2021-06-12] MEDS: RT-ALBUTEROL/IPRATROPIUM 3 ML (DUONEB) VIAL INH SCH ×6 (02:56→22:48)
[2021-06-12] MEDS: NS IV 1000 ML 1,000 ML IV SCH ×2 (04:48→21:14)
[2021-06-12 04:50] LABS: ABG BASE EXCESS 1.1 MMOL/L (-2.5-2.5); ABG OXYGEN SATURATION 95 % (94-100); ABG PCO2 39 MMHG (35-45); ABG PH 7.42 (7.37-7.43); ABG PO2 66 MMHG (79-93); ABG TCO2 26.3 MMOL/L (21.0-31.0); ALLENS TEST YES-POS; INSPIRED O2 25% BIPAP; PATIENT TEMP 36.7; VENTILATOR NO
[2021-06-12 04:52] LABS: BASOPHILS # (AUTO) 0.1 10^3/uL (0.0-0.1); BASOPHILS % (AUTO) 1 % (0-10); EOSINOPHILS # (AUTO) 0.2 10^3/uL (0.0-0.3); EOSINOPHILS % (AUTO) 3 % (0-10); HEMATOCRIT 31 % (35-52); HEMOGLOBIN 9.5 g/dL (11.5-16.0); LYMPHOCYTES # (AUTO) 0.8 10^3/uL (1.0-4.0); LYMPHOCYTES % (AUTO) 10 % (12-44); MEAN CORPUSCULAR HEMOGLOBIN 30 pg (25-34); MEAN CORPUSCULAR HGB CONC 31 g/dL (32-36); MEAN CORPUSCULAR VOLUME 96 fL (80-99); MEAN PLATELET VOLUME 12.1 fL (9.0-12.2); MONOCYTES # (AUTO) 0.8 10^3/uL (0.0-1.0); MONOCYTES % (AUTO) 10 % (0-12); NEUTROPHILS # (AUTO) 6.1 10^3/uL (1.8-7.8); NEUTROPHILS % (AUTO) 75 % (42-75); PLATELET COUNT 197 10^3/uL (130-400); WHITE BLOOD COUNT 8.1 10^3/uL (4.3-11.0)
[2021-06-12 05:07] LABS: ALBUMIN 2.7 GM/DL (3.2-4.5); POTASSIUM 3.5 MMOL/L (3.6-5.0)
[2021-06-12 05:09] LABS: CALCIUM 8.7 MG/DL (8.5-10.1)
[2021-06-12 05:12] LABS: BILIRUBIN,TOTAL 0.3 MG/DL (0.1-1.0)
[2021-06-12 05:13] LABS: PHOSPHORUS 1.9 MG/DL (2.3-4.7)
[2021-06-12 05:14] LABS: CREATININE SERUM 0.77 MG/DL (0.60-1.30)
[2021-06-12 05:16] LABS: MAGNESIUM 1.7 MG/DL (1.6-2.4)
[2021-06-12] MEDS: KCL 20 MEQ TAB (K-DUR) PO SCH (05:29)
[2021-06-12] MEDS: MAGNESIUM 1 GM/100 ML IVPB 100 ML IV SCH ×3 (06:01→06:45)
[2021-06-12] MEDS: AZTREONAM INJECTION 2,000 MG in NS (IVPB) 100 ML IV SCH ×3 (06:01→22:00)
[2021-06-12] MEDS: POTASSIUM CL 10MEQ/50ML IVPB 50 ML IV SCH ×3 (06:02→06:45)
[2021-06-12] MEDS: dilTIAZem DRIP PRE-MIX 125 ML IV SCH ×2 (06:31→17:36)
[2021-06-12] MEDS: fentaNYL INJ 100 MCG/2 ML AMP IVP PRN ×3 (06:45→22:00)
--- NOTE | 2021-06-12 07:17 | Progress Note - Surgery ---
BRIAN VILLEDA 06/12/21 0717: Subjective Date Seen by a Provider: Jun 12, 2021 Time Seen by a Provider: 06:51 Subjective/Events-last exam Pt had recently gotten a dose of fentanyl. Was sedated when I was in the room and answered limited questions that I asked. Nurse reports that pt recently had a small bowel movement. NG tube has been clamped since last night. Pt had been complaining of abdominal pain before she was given the fentanyl. Nurse also stated that pt's urine output had been good. She was recently taken off of BIPAP and placed on 4L via NC. Review of Systems General: No Chills, No Other (fever) Cardiovascular: No: Chest Pain, Palpitations Gastrointestinal: Abdominal Pain; No: Nausea, Vomiting Musculoskeletal: foot pain (b/l) Objective Exam Vital Signs Date Time Temp Pulse Resp B/P (MAP) Pulse Ox O2 Delivery O2 Flow Rate FiO2 06/12/21 06:49 High Flow N/C 4.00 06/12/21 06:40 81 18 92 Nasal Cannula 4.00 06/12/21 06:00 90 12 130/75 95 NIV Bilevel 25.00 06/12/21 05:00 105 25 131/86 96 NIV Bilevel 25.00 06/12/21 04:45 36.7 94 NIV Bilevel 25.00 06/12/21 04:07 96 19 96 NIV Bilevel 25.00 06/12/21 04:00 102 29 124/87 94 NIV Bilevel 30.00 06/12/21 04:00 94 NIV Bilevel 4.00 25 06/12/21 03:00 106 21 140/79 97 NIV Bilevel 30.00 06/12/21 02:56 103 23 97 30.00 06/12/21 02:00 87 19 117/59 97 NIV Bilevel 30.00 06/12/21 01:06 35.8 97 NIV Bilevel 30.00 06/12/21 01:00 98 19 125/44 97 NIV Bilevel 30.00 06/12/21 01:00 98 06/12/21 00:30 NIV Bilevel 30.00 06/12/21 00:00 97 NIV Bilevel 4.00 30 06/12/21 00:00 102 19 134/78 95 NIV Bilevel 40.00 06/11/21 23:00 111 17 128/74 96 NIV Bilevel 40.00 06/11/21 22:17 113 19 97 30.00 06/11/21 22:15 97 19 111/66 100 NIV Bilevel 40.00 06/11/21 21:49 96 NIV Bilevel 40.00 06/11/21 21:38 37.4 97 Nasal Cannula 4.00 06/11/21 21:00 110 23 112/65 96 Nasal Cannula 4.00 06/11/21 20:00 103 15 139/73 95 Nasal Cannula 4.00 06/11/21 20:00 97 High Flow N/C 4.00 06/11/21 19:06 High Flow N/C 4.00 06/11/21 19:02 97 High Flow N/C 4.00 06/11/21 19:00 109 18 124/89 97 Nasal Cannula 4.00 06/11/21 19:00 109 06/11/21 18:00 85 27 128/84 99 Nasal Cannula 4.00 06/11/21 17:00 104 21 127/70 96 Nasal Cannula 4.00 06/11/21 16:00 96 High Flow N/C 4.00 06/11/21 16:00 102 24 137/58 98 Nasal Cannula 4.00 06/11/21 15:00 98 22 117/73 94 Nasal Cannula 4.00 06/11/21 14:24 96 Nasal Cannula 3.00 06/11/21 14:00 100 17 125/81 98 Nasal Cannula 4.00 06/11/21 13:00 98 34 118/72 98 Nasal Cannula 4.00 06/11/21 13:00 90 06/11/21 12:59 36.4 06/11/21 12:16 94 High Flow N/C 4.00 06/11/21 12:00 98 24 125/83 91 Nasal Cannula 4.00 06/11/21 11:00 101 15 143/78 96 Nasal Cannula 4.00 06/11/21 10:36 95 Nasal Cannula 4.00 06/11/21 10:00 72 31 109/52 95 Nasal Cannula 4.00 06/11/21 09:45 93 125/60 95 Nasal Cannula 4.00 06/11/21 09:30 86 35 140/99 94 NIV Bilevel 4.00 06/11/21 09:15 101 24 131/89 97 Nasal Cannula 4.00 06/11/21 09:00 95 30 137/70 96 Nasal Cannula 4.00 06/11/21 08:45 112 24 126/79 96 Nasal Cannula 4.00 06/11/21 08:30 107 16 141/76 94 Nasal Cannula 4.00 06/11/21 08:18 94 NIV Bilevel 40 06/11/21 08:15 104 18 134/95 94 Nasal Cannula 4.00 06/11/21 08:00 105 17 125/78 95 NIV Bilevel 40.00 06/11/21 07:45 105 18 122/68 95 NIV Bilevel 40.00 06/11/21 07:42 36.2 06/11/21 07:38 124 23 95 40.00 06/11/21 07:30 89 27 114/80 94 NIV Bilevel 40.00 06/11/21 07:15 110 17 132/66 95 NIV Bilevel 40.00 I & O 06/12/21 06:59 Intake Total 1790 ml Output Total 1230 ml Balance 560 ml Capillary Refill : Less Than 3 SecondsLess Than 3 Seconds General Appearance: No Apparent Distress, Chronically ill, Obese HEENT: No Scleral Icterus (L), No Scleral Icterus (R); Other (NG tube ) Neck: Normal Inspection, Non Tender, Other (Central line in place) Respiratory: Chest Non Tender, No Accessory Muscle Use, No Respiratory Distress Cardiovascular: No JVD, Normal Peripheral Pulses, Irregularly Irregular Gastrointestinal: normal bowel sounds, soft, distended (Minimal), guarding, te nderness (Incisional, and diffuse all quadrants), other (Incisions intact and pink; no drainage) Extremity: Normal Inspection, Normal Range of Motion, Other (Tenderness of feet b/l) Neurologic/Psychiatric: Other (sedated ) Skin: Normal Color, Warm/Dry Lymphatic: No Adenopathy Results Lab Laboratory Tests 06/11/21 12:31: Glucometer 188H 06/11/21 17:29: Glucometer 156H 06/11/21 21:43: Blood Gas Puncture Site RIGHT RADIAL, Blood Gas Patient Temperature 37.4, Arterial Blood pH 7.27*L, Arterial Blood Partial Pressure CO2 60H, Arterial Blood Partial Pressure O2 119H, Arterial Blood HCO3 27, Arterial Blood Total CO2 28.6, Arterial Blood Oxygen Saturation 99, Arterial Blood Base Excess 0.7, [place] Test YES-POS, Blood Gas Ventilator Setting NO, Blood Gas Inspired Oxygen 4L NC 06/12/21 01:04: Glucometer 183H 06/12/21 04:41: White Blood Count 8.1, Red Blood Count 3.20L, Hemoglobin 9.5L, Hematocrit 31L, Mean Corpuscular Volume 96, Mean Corpuscular Hemoglobin 30, Mean Corpuscular Hemoglobin Concent 31L, Red Cell Distribution Width 14.7H, Platelet Count 197, Mean Platelet Volume 12.1, Immature Granulocyte % (Auto) 2, Neutrophils (%) (Auto) 75, Lymphocytes (%) (Auto) 10L, Monocytes (%) (Auto) 10, Eosinophils (%) (Auto) 3, Basophils (%) (Auto) 1, Neutrophils # (Auto) 6.1, Lymphocytes # (Auto) 0.8L, Monocytes # (Auto) 0.8, Eosinophils # (Auto) 0.2, Basophils # (Auto) 0.1, Immature Granulocyte # (Auto) 0.2H, Blood Gas Puncture Site RIGHT RADIAL, Blood Gas Patient Temperature 36.7, Arterial Blood pH 7.42, Arterial Blood Partial Pressure CO2 39, Arterial Blood Partial Pressure O2 66L, Arterial Blood HCO3 25, Arterial Blood Total CO2 26.3, Arterial Blood Oxygen Saturation 95, Arterial Blood Base Excess 1.1, [place] Test YES-POS, Blood Gas Ventilator Setting NO, Blood Gas Inspired Oxygen 25% BIPAP, Sodium Level 143, Potassium Level 3.5L, Chloride Level 107, Carbon Dioxide Level 22, Anion Gap 14, Blood Urea Nitrogen 19H, Creatinine 0.77, Estimat Glomerular Filtration Rate 76, BUN/Creatinine Rati o 25, Glucose Level 196H, Calcium Level 8.7, Corrected Calcium 9.7, Phosphorus Level 1.9L, Magnesium Level 1.7, Total Bilirubin 0.3, Aspartate Amino Transf (AST/SGOT) 15, Alanine Aminotransferase (ALT/SGPT) 15, Alkaline Phosphatase 60, Total Protein 5.0L, Albumin 2.7L, Beta-Hydroxybutyrate (Chem panel) 3.00H Microbiology 06/06/21 Blood Culture - Final, Complete No growth 06/04/21 MRSA Screen - Final, Complete MRSA not isolated Assessment/Plan Assessment/Plan Assessment/Plan S/P exploratory laparotomy with lysis of adhesions, release of small bowel obstruction, and incidental appendectomy AFib NSTEMI Neuropathy (bilateral feet) Diabetes mellitus NG tube clamped HTN DVT prophylaxis(Lovenox at 40mg) Pt is currently on 4L via NC, start incentive spirometer when able Continue azotreonam and metronidazole Continue Protonix QD and Zofran PRN Clamp NG tube yesterday evening- NPO (can have ice chips) Pt did have small BM today and yesterday, NG tube has been clamped, may consider removing today Consider starting clear liquid diet IVFs; drake for accurate i/o Hgb Stable Monitor labs and vitals Followed by cardiology DOUG GLASS DO 06/12/21 0947: Subjective Subjective/Events-last exam Patient with 2 bm overnight. Pain controlled. Not very active. Urine output okay. NPO. Not using IS. Off bipap. Denies fever sweats chills shortness of breath or chest pain. Objective Exam General Appearance: No Apparent Distress, Chronically ill, Obese HEENT: PERRL/EOMI, Other (NG tube ) Neck: Normal Inspection, Non Tender Respiratory: Chest Non Tender, No Accessory Muscle Use, No Respiratory Distress Cardiovascular: Irregularly Irregular Gastrointestinal: normal bowel sounds, soft, distended (Minimal); No guarding; tenderness (Incisional pain), other (Incisions intact and pink; no drainage) Extremity: Normal Inspection, Normal Range of Motion Neurologic/Psychiatric: Alert, Oriented x3, Other (sedated ) Skin: Normal Color, Warm/Dry Lymphatic: No Adenopathy Assessment/Plan Assessment/Plan Assessment/Plan S/P exploratory laparotomy with lysis of adhesions, release of small bowel obstruction, and incidental appendectomy AFib NSTEMI Neuropathy (bilateral feet) Diabetes mellitus NG tube clamped HTN DVT prophylaxis(Lovenox at 40mg) Poor motivation. Pt is currently on 4L via NC, start incentive spirometer when able Continue azotreonam and metronidazole Continue Protonix QD and Zofran PRN Pt with BM if patient gets up to chair can pull ng and start on clears. IVFs; drake for accurate i/o Hgb Stable Monitor labs and vitals Followed by cardiology Supervisory-Addendum Brief Verification & Attestation Participated in pt care: history, MDM, physical Personally performed: exam, history, MDM, supervision of care Care discussed with: Medical Student Procedures: n/a Results interpretation: Verified all documentation Verification and Attestation of Medical Student E/M Service A medical student performed and documented this service in my presence. I reviewed and verified all information documented by the medical student and made modifications to such information, when appropriate. I personally performed the physical exam and medical decision making. Doug Glass, Jun 12, 2021,09:50 BRIAN VILLEDA Jun 12, 2021 07:17 DOUG GLASS DO Jun 12, 2021 09:47
[2021-06-12] MEDS: RT--FLUTICASONE/SALMETEROL 113-14 (AIRDUO RespiCLICK) IH SCH ×2 (08:32→19:15)
--- NOTE | 2021-06-12 08:35 | Physical Therapy Daily Note ---
PT Daily Note-Current Subjective Patient presented laying in bed and reported that her legs were hurting her today. Patient refused to get up but agreed to perform bed exercises. She was educated on the benefits of getting up and at least sitting on the edge of the bed but continued to refuse. Mental Status Patient Orientation: Person Attachments: NG Tube, Oxygen, Grant Catheter, IV Transfers SCALE: Activities may be completed with or without assistive devices. 9-Spsnjbgiwd-gpfxhdr completes the activity by him/herself with no assistance from a helper. 5-Set-up or Clean-up Assistance-helper sets up or cleans up; patient completes activity. [place] assists only prior to or following the activity. 4-Supervision or Touching Assistance-helper provides verbal cues and/or touching/steadying and/or contact guard assistance as patient completes activity. Assistance may be provided throughout the activity or intermittently. 3-Partial/Moderate Assistance-helper does LESS THAN HALF the effort. [place] lifts, holds or supports trunk or limbs, but provides less than half the effort. 2-Substantial/Maximal Assistance-helper does MORE THAN HALF the effort. [place] lifts or holds trunk or limbs and provides more than half the effort. 2-Abvyeoifx-micgsi does ALL the effort. Patient does none of the effort to complete the activity. Or, the assistance of 2 or more helpers is required for the patient to complete the activity. If activity was not attempted, code reason: 7-Patient Refused. 9-Not Applicable-not attempted and the patient did not perform the activity before the current illness, exacerbation or injury. 10-Not Attempted due to Environmental Limitations-(lack of equipment, weather restraints, etc.). 88-Not Attempted due to Medical Conditions or Safety Concerns. Exercises Supine Ex: Quad Set, Glut sets, Heel Slides, Hip abd/add Supine Reps: 10 Assessment Current Status: Poor Progress Patient performed LE supine exercises on bilateral legs. Patient declined sitting EOB during therapy session due to increased pain. Patient completed exercises with minimal fatigue. Patient was dependent for bed mobility to move up in bed. PT Snf Goals Snf Goals PT Snf Goals Time Frame: Jun 22, 2021 Roll Left & Right (QC): 4 Sit to Lying (QC): 4 Lying-Sitting on Side/Bed(QC): 4 Sit to Stand (QC): 4 Chair/Ejk-bt-Rdruo Xfer(QC): 4 Toilet Transfer (QC): 4 Does the Patient Walk: Yes Walk 10 feet (QC): 4 Walk 50ft with 2 Turns (QC): 3 Walk 150 ft (QC): 3 PT Plan Problem List Problem List: Activity Tolerance, Functional Strength, Safety, Balance, Gait, Transfer, Bed Mobility, ROM Treatment/Plan Treatment Plan: Continue Plan of Care Treatment Plan: Bed Mobility, Education, Functional Activity Brandie, Functional Strength, Gait, Safety, Therapeutic Exercise, Transfers Treatment Duration: Jun 22, 2021 Frequency: 6 times per week Estimated Hrs Per Day: .25 hour per day Patient and/or Family Agrees t: Yes Safety Risks/Education Patient Education: Correct Positioning, Safety Issues Teaching Recipient: Patient Teaching Methods: Demonstration, Discussion Response to Teaching: Reinforcement Needed Time/GCodes Time In: 800 Time Out: 810 Total Billed Treatment Time: 10 Total Billed Treatment 1 Visit EX 10 min NEETA RIVERA PT Jun 12, 2021 08:34
[2021-06-12] MEDS: metroNIDAZOLE 500MG/100ML IVPB 100 ML IV SCH ×2 (09:08→20:16)
[2021-06-12] MEDS: ENOXAPARIN 40 MG/0.4 ML (LOVENOX) SYR SC SCH ×2 (09:08→20:16)
[2021-06-12] MEDS: PANTOPRAZOLE 40 MG (PROTONIX) VIAL IV SCH (09:09)
--- NOTE | 2021-06-12 10:51 | Tele-ICU Progress Note ---
Subjective Date Seen by a Provider: Jun 12, 2021 Time Seen by a Provider: 10:51 Sepsis Event Evaluation Height, Weight, BMI Height: 5'63.00" Weight: 219lbs. 1.0oz. 99.548120kv; 37.00 BMI Method: Exam Exam Patient acknowledged, consented, and participated in this virtual visit which was conducted using real time audio/video Vital Signs Date Time Temp Pulse Resp B/P (MAP) Pulse Ox O2 Delivery O2 Flow Rate FiO2 06/12/21 10:40 96 Nasal Cannula 4.00 06/12/21 10:00 111 28 139/56 97 Nasal Cannula 4.00 06/12/21 09:00 101 17 99/57 98 Nasal Cannula 4.00 06/12/21 08:32 High Flow N/C 4.00 06/12/21 08:30 95 High Flow N/C 4.00 06/12/21 08:00 80 24 131/78 97 Nasal Cannula 4.00 06/12/21 08:00 94 NIV Bilevel 4.00 25 06/12/21 07:45 36.4 06/12/21 07:00 91 22 139/70 93 Nasal Cannula 4.00 06/12/21 07:00 94 06/12/21 06:49 High Flow N/C 4.00 06/12/21 06:40 81 18 92 Nasal Cannula 4.00 06/12/21 06:00 90 12 130/75 95 NIV Bilevel 25.00 06/12/21 05:00 105 25 131/86 96 NIV Bilevel 25.00 06/12/21 04:45 36.7 94 NIV Bilevel 25.00 06/12/21 04:07 96 19 96 NIV Bilevel 25.00 06/12/21 04:00 102 29 124/87 94 NIV Bilevel 30.00 06/12/21 04:00 94 NIV Bilevel 4.00 25 06/12/21 03:00 106 21 140/79 97 NIV Bilevel 30.00 06/12/21 02:56 103 23 97 30.00 06/12/21 02:00 87 19 117/59 97 NIV Bilevel 30.00 06/12/21 01:06 35.8 97 NIV Bilevel 30.00 06/12/21 01:00 98 19 125/44 97 NIV Bilevel 30.00 06/12/21 01:00 98 3/2/22 00:30 NIV Bilevel 30.00 06/12/21 00:00 97 NIV Bilevel 4.00 30 06/12/21 00:00 102 19 134/78 95 NIV Bilevel 40.00 06/11/21 23:00 111 17 128/74 96 NIV Bilevel 40.00 06/11/21 22:17 113 19 97 30.00 06/11/21 22:15 97 19 111/66 100 NIV Bilevel 40.00 06/11/21 21:49 96 NIV Bilevel 40.00 06/11/21 21:38 37.4 97 Nasal Cannula 4.00 06/11/21 21:00 110 23 112/65 96 Nasal Cannula 4.00 06/11/21 20:00 103 15 139/73 95 Nasal Cannula 4.00 06/11/21 20:00 97 High Flow N/C 4.00 06/11/21 19:06 High Flow N/C 4.00 06/11/21 19:02 97 High Flow N/C 4.00 06/11/21 19:00 109 18 124/89 97 Nasal Cannula 4.00 06/11/21 19:00 109 06/11/21 18:00 85 27 128/84 99 Nasal Cannula 4.00 06/11/21 17:00 104 21 127/70 96 Nasal Cannula 4.00 06/11/21 16:00 96 High Flow N/C 4.00 06/11/21 16:00 102 24 137/58 98 Nasal Cannula 4.00 06/11/21 15:00 98 22 117/73 94 Nasal Cannula 4.00 06/11/21 14:24 96 Nasal Cannula 3.00 06/11/21 14:00 100 17 125/81 98 Nasal Cannula 4.00 06/11/21 13:00 98 34 118/72 98 Nasal Cannula 4.00 06/11/21 13:00 90 06/11/21 12:59 36.4 06/11/21 12:16 94 High Flow N/C 4.00 06/11/21 12:00 98 24 125/83 91 Nasal Cannula 4.00 06/11/21 11:00 101 15 143/78 96 Nasal Cannula 4.00 I & O 06/12/21 06:59 Intake Total 2265 ml Output Total 1230 ml Balance 1035 ml Height & Weight Height: 5'63.00" Weight: 219lbs. 1.0oz. 99.388958vi; 37.00 BMI Method: General Appearance: No Apparent Distress, Chronically ill, Obese HEENT: PERRL/EOMI, Other (NG tube ) Neck: Normal Inspection, Non Tender Respiratory: Chest Non Tender, No Accessory Muscle Use, No Respiratory Distress Cardiovascular: Irregularly Irregular Capillary Refill: Less Than 3 Seconds Gastrointestinal: normal bowel sounds, soft, distended (Minimal); No guarding; tenderness (Incisional pain), other (Incisions intact and pink; no drainage) Extremity: Normal Inspection, Normal Range of Motion Neurologic/Psychiatric: Alert, Oriented x3, Other (sedated ) Skin: Normal Color, Warm/Dry Lymphatic: No Adenopathy Results Lab Laboratory Tests 06/10/21 14:15 06/11/21 05:32 06/12/21 04:41 Assessment/Plan Assessment/Plan Tele-ICU Physician , Progress Note ) Available chart/ vitals / labs / Images reviewed Video assessment done using teleICU camera, rest of exam as per RN Discussed with RN , EXAM PER RN Events overnight : NG tube still in place, cardizem gtt BIPAP 12/ for resp acidosis Afebrile FiO2 - 2l I/O = neg Drips: cardizem gtt resumed 06/10 Pressors: , hemodynamically stable Consultants: Hospital course: (05/15/21) 85yr old female admitted with SBO, CP with elevated troponin, hyperglycemia, afib rvr 2. S/P exploratory laparotomy , INTUBATED 06/07 - EXTUBATED 06/10 - BIPAP 12/6 for resp acidosis 06/11 - well on 4L nc , but still retaining CO2 --> night on BIPAP A/P SBO - 06/06-S/P exploratory laparotomy with lysis of adhesions, release of small bowel obstruction, and incidental appendectomy - NG tube still in place, Acute hypercarbic resp failure - BIPAP 12/6 for resp acidosis = responded well - try to take well on 4L nc , but still retaining CO2 --> night on BIPAP - trying to decrease pain meds -most likel will keep "on" for next night too ID - started on abx empirically 06/08 - cx negative - to cont 5 d LAST DAY TODAY DKA- resloved OFF insulin drip - risiung beta- hydroxybutyrate is most likely RELATED FOR PROLONGED FASTING , not DKA -ISS A fib - RVR - rate control with cardizem gtt -@5 today - starting PO as per sx and cards - AC: OFF , on lovenox 40 bid ( was on eliquis at home ) = TO RESUME AC WHEN OK WITH SX AND CARDS Recent NSTEMI. CAD - Echo on 06/06/21: LVEF 40-45%, anteroseptal hypokinesis, mild MR, PASP 65-70 mmHg - conservative management Pulm HTN - Echo on 06/06/21: PASP 65-70 mmHg - monitor carefuly Nutritions - as per sx - ? potentia to start Po vs TPN soon Hyponatremia - post op - resolved Lines : right IJ 06/04 (Central Line Necessity Reviewed) Grant: + OG: Nutrition: Analgesia: Anxiety/ delirium VTE Prophylaxis: gita 40 bid- as per cards Stress Ulcer Prophylaxis: ppi Plans in collaboration with bedside consultants and IM MDs. Discussed with RN to reach out if any questions or concerns A total of 32 minutes of critical care time was devoted to this patient today, required to treat and/or prevent further deterioration of critical care condition ( as above ) . ADALGISA CROCKETT MD Jun 12, 2021 10:51
--- NOTE | 2021-06-12 10:58 | Progress Note ---
Subjective Subjective/Events-last exam Afebrile, still passing stool. States she didn't make it to the chair yesterday. Overall she says she knows she needs to get up and is going to try today. Objective Exam Last Set of Vital Signs Vital Signs Date Time Temp Pulse Resp B/P (MAP) Pulse Ox O2 Delivery O2 Flow Rate FiO2 06/12/21 10:40 96 Nasal Cannula 4.00 06/12/21 10:00 111 28 139/56 06/12/21 08:00 25 06/12/21 07:45 36.4 Capillary Refill : Less Than 3 SecondsLess Than 3 Seconds I&O Intake and Output 06/12/21 00:00 Intake Total 2115 ml Output Total 1250 ml Balance 865 ml Intake Oral 30 ml IV Total 2085 ml Output Urine Total 1025 ml Gastric Drainage Total 225 ml # Bowel Movements 1 General: Alert, No Acute Distress Lungs: Clear to Auscultation, Normal Air Movement Heart: Other (irregularly irregular) Abdomen: Normal Bowel Sounds, Soft, Other (midline incision c/d/i with janie in place) Neuro: Normal Speech Psych/Mental Status: Mental Status NL, Mood NL Results/Procedures Lab Laboratory Tests 06/11/21 12:31: Glucometer 188H 06/11/21 17:29: Glucometer 156H 06/11/21 21:43: Blood Gas Puncture Site RIGHT RADIAL, Blood Gas Patient Temperature 37.4, Arterial Blood pH 7.27*L, Arterial Blood Partial Pressure CO2 60H, Arterial Blood Partial Pressure O2 119H, Arterial Blood HCO3 27, Arterial Blood Total CO2 28.6, Arterial Blood Oxygen Saturation 99, Arterial Blood Base Excess 0.7, [place] Test YES-POS, Blood Gas Ventilator Setting NO, Blood Gas Inspired Oxygen 4L NC 06/12/21 01:04: Glucometer 183H 06/12/21 04:41: White Blood Count 8.1, Red Blood Count 3.20L, Hemoglobin 9.5L, Hematocrit 31L, Mean Corpuscular Volume 96, Mean Corpuscular Hemoglobin 30, Mean Corpuscular Hemoglobin Concent 31L, Red Cell Distribution Width 14.7H, Platelet Count 197, Mean Platelet Volume 12.1, Immature Granulocyte % (Auto) 2, Neutrophils (%) (Auto) 75, Lymphocytes (%) (Auto) 10L, Monocytes (%) (Auto) 10, Eosinophils (%) (Auto) 3, Basophils (%) (Auto) 1, Neutrophils # (Auto) 6.1, Lymphocytes # (Auto) 0.8L, Monocytes # (Auto) 0.8, Eosinophils # (Auto) 0.2, Basophils # (Auto) 0.1, Immature Granulocyte # (Auto) 0.2H, Blood Gas Puncture Site RIGHT RADIAL, Blood Gas Patient Temperature 36.7, Arterial Blood pH 7.42, Arterial Blood Partial Pressure CO2 39, Arterial Blood Partial Pressure O2 66L, Arterial Blood HCO3 25, Arterial Blood Total CO2 26.3, Arterial Blood Oxygen Saturation 95, Arterial Blood Base Excess 1.1, [place] Test YES-POS, Blood Gas Ventilator Setting NO, Blood Gas Inspired Oxygen 25% BIPAP, Sodium Level 143, Potassium Level 3.5L, Chloride Level 107, Carbon Dioxide Level 22, Anion Gap 14, Blood Urea Nitrogen 19H, Creatinine 0.77, Estimat Glomerular Filtration Rate 76, BUN/Creatinine Ratio 25, Glucose Level 196H, Calcium Level 8.7, Corrected Calcium 9.7, Phosphorus Level 1.9L, Magnesium Level 1.7, Total Bilirubin 0.3, Aspartate Amino Transf (AST/SGOT) 15, Alanine Aminotransferase (ALT/SGPT) 15, Alkaline Phosphatase 60, Total Protein 5.0L, Albumin 2.7L, Beta-Hydroxybutyrate (Chem panel) 3.00H Microbiology 06/06/21 Blood Culture - Final, Complete No growth 06/04/21 MRSA Screen - Final, Complete MRSA not isolated Radiology NAME: BERNARDO BUCKLEY [facility] REC#: [id number] PT STATUS: REG ER : 1935 PHYSICIAN: EDI ONEAL MD ADMIT DATE: 06/04/21/ER FS Signed Date of Exam:06/04/21 CT ABDOMEN/PELVIS W PROCEDURE: CT abdomen and pelvis with contrast. TECHNIQUE: Multiple contiguous axial images were obtained through the abdomen and pelvis after administration of intravenous contrast. Auto Exposure Controls were utilized during the CT exam to meet ALARA standards for radiation dose reduction. All CT scans use one or more of the following dose optimizing techniques: automated exposure control, MA and/or KvP adjustment based on patient size and exam type or iterative reconstruction. INDICATION: Abdominal pain. COMPARISON: No prior studies are available for comparison. FINDINGS: Lung bases are clear. There is generalized low density throughout the liver, consistent with hepatic steatosis. No discrete liver mass is detected. Gallbladder is surgically absent. No biliary ductal dilatation is seen. Pancreas and spleen are unremarkable. No adrenal mass is detected. Right kidney contains a small cortical low-attenuation lesion in the upper pole measuring 16 mm and suggestive of a cyst. No hydronephrosis noted. Aorta is heavily calcified but nonaneurysmal. There appear to be some dilated and fluid-filled small bowel loops in the central abdomen. There is significant laxity to the anterior abdominal wall with diastasis of the rectus musculature. No definite focal abdominal wall defect is seen to suggest a ventral hernia. No bowel wall thickening is seen. There are normal-caliber small bowel loops distally and possibility of small bowel obstruction cannot be excluded. There is no free air. There is no free fluid or fluid collection. Bladder is decompressed by Grant catheter. Bony structures demonstrate compression deformity of T11 vertebral body which is near vertebra plana. There is also probable superior endplate fracture of L2. These could be chronic. There is no retropulsion. IMPRESSION: 1. Dilated small bowel loops with transition distally, concerning for small bowel obstruction. Small bowel study would be useful for further evaluation. No free air, free fluid or fluid collection is detected. 2. Probable chronic compression deformities involving T11 and L2. Dictated by: Dictated on workstation # [id number] Dict: 06/04/211912 Trans: 06/04/211938 AS6 [id number] Interpreted by: LUIS ANTONIO ARCHULETA MD Electronically signed by: LUIS ANTONIO ARCHULETA MD 06/04/211938 NAME: BERNARDO BUCKLEY [facility] REC#: [id number] PT STATUS: ADM IN : 1935 PHYSICIAN: MARK PAT DO ADMIT DATE: 06/04/21/ICU Signed Date of Exam:06/04/21 CHEST 1 VIEW, AP/PA ONLY Portable chest COMPARISON to prior study from earlier in the same day. INDICATION: Central line placement. FINDINGS: A right internal jugular central line has been placed. This terminates within the distal SVC. There are no findings of a pneumothorax. Pulmonary interstitial prominence and heart size are unchanged from prior examination. There may be a trace left-sided effusion. There is no new alveolar consolidation IMPRESSION: 1. Interval placement of a new right internal jugular central line without pneumothorax. 2. Stable prominence of the pulmonary interstitial markings. 3. Possible trace left effusion. Dictated by: Dictated on workstation # [id number] Dict: 06/04/212217 Trans: 06/04/212249 [facility] [id number] Interpreted by: JOSE D BUCKNER MD Electronically signed by: JSOE D BUCKNER MD 06/04/212249 Assessment/Plan Assessment/Plan (1) Small bowel obstruction Status: Acute Assessment & Plan: s/p exploratory laparotomy with lysis of adhesions, release of small bowel obstruction, and incidental appendectomy on 06/06, appreciate Surgery recommendations. NG remains in place, positive BM this morning. 06/12 On aztreonam and metronidazole, day 5, hopeful to d/c NG tube today if able to get out of bed. (2) DKA, type 2 Status: Resolved Assessment & Plan: s/p insulin drip, has positive beta hydroxybutyrate, but AG and bicarb remain normal. Sliding scale insulin. Qualifiers: Qualified Codes: E11.10 - Type 2 diabetes mellitus with ketoacidosis without coma (3) NSTEMI (non-ST elevated myocardial infarction) Status: Acute Assessment & Plan: Conservative management with medications, appreciate Cardiology recommendations. (4) Atrial fibrillation Status: Chronic Assessment & Plan: Requiring diltiazem drip, appreciate Cardiology recommendations. Qualifiers: Qualified Codes: I48.20 - Chronic atrial fibrillation, unspecified (5) CAD (coronary artery disease) Status: Chronic Assessment & Plan: Appreciate Cardiology recommendations Echo on 06/06/21: LVEF 40-45%, with anteroseptal hypokinesis Qualifiers: (6) Essential (primary) hypertension Status: Chronic (7) Respiratory acidosis Status: Resolved Assessment & Plan: 06/10 pH today remains 7.3, but metabolic acidosis is resolved- AG closed and bicarb normal, now with elevated pH, but good mental status, monitor and recheck pH later today 06/11- pH and pCO2 worsened on repeat yesterday later in day, on bipap overnight with improvement and mental status improved today as well. /- used bipap overnight and clinical status remains good on supplemental oxygen this morning (8) COPD (chronic obstructive pulmonary disease) Status: Chronic Assessment & Plan: Duoneb q4, not doing well with IS, switching to acapella. Resume home fluticasone/vilanterol. (9) Diabetes mellitus, type 2 Status: Chronic Assessment & Plan: 3/2 glucose 156-196 last 24 hours, continue sliding scale, holding home glimeperide, degludec and semaglutide Qualifiers: Qualified Codes: E11.65 - Type 2 diabetes mellitus with hyperglycemia; Z79.4 - superintendent terminal (current) use of insulin (10) DVT prophylaxis Status: Acute Assessment & Plan: Enoxaparin KENNA DAY MD Jun 12, 2021 10:58
[2021-06-12] MEDS ORDERED: POTASSIUM PHOSPHATE INJ 30 MM in NS (IVPB) 250 ML IV NR (11:30)
--- NOTE | 2021-06-12 13:32 | Physical Therapy Daily Note ---
PT Daily Note-Current Subjective Patient in bed pre tx, agrees to PT. Patient refused to get out of bed or try to sit on the side of the bed this morning and we wanted to give her a second chance. Appearance Patient in recliner post tx with nurse call, phone, tray, daughter in room, nurse notified Mental Status Patient Orientation: Person, Unable to Assess (patient is almost non-verbal) Attachments: NG Tube, Oxygen, Grant Catheter, IV Transfers SCALE: Activities may be completed with or without assistive devices. 6-Buxwfltlou-wsmwjst completes the activity by him/herself with no assistance from a helper. 5-Set-up or Clean-up Assistance-helper sets up or cleans up; patient completes activity. [place] assists only prior to or following the activity. 4-Supervision or Touching Assistance-helper provides verbal cues and/or touching/steadying and/or contact guard assistance as patient completes activity. Assistance may be provided throughout the activity or intermittently. 3-Partial/Moderate Assistance-helper does LESS THAN HALF the effort. [place] lifts, holds or supports trunk or limbs, but provides less than half the effort. 2-Substantial/Maximal Assistance-helper does MORE THAN HALF the effort. [place] lifts or holds trunk or limbs and provides more than half the effort. 5-Zadzqojhg-jizplu does ALL the effort. Patient does none of the effort to complete the activity. Or, the assistance of 2 or more helpers is required for the patient to complete the activity. If activity was not attempted, code reason: 7-Patient Refused. 9-Not Applicable-not attempted and the patient did not perform the activity before the current illness, exacerbation or injury. 10-Not Attempted due to Environmental Limitations-(lack of equipment, weather restraints, etc.). 88-Not Attempted due to Medical Conditions or Safety Concerns. Roll Left & Right (QC): 3 Lying to Sitting/Side of Bed(Q: 1 Sit to Stand (QC): 2 Chair/Fvw-uc-Mcohr Xfer(QC): 2 Patient performed a stand pivot transfer to recliner with max assist, she was able to to shuffle her feet sideways toward the chair a bit but probably only about retirement and then had to be transferred by therapist. Treatments bed mobility and transfers Assessment Current Status: Poor Progress severe debility, patients O2 did drop into upper 80's at times but comes back to 90% with cues to breath through her nose and with rest. PT Detention Goals Detention Goals PT Youth Officer Goals Time Frame: Jun 22, 2021 Roll Left & Right (QC): 4 Sit to Lying (QC): 4 Lying-Sitting on Side/Bed(QC): 4 Sit to Stand (QC): 4 Chair/Dle-ob-Wjaik Xfer(QC): 4 Toilet Transfer (QC): 4 Does the Patient Walk: Yes Walk 10 feet (QC): 4 Walk 50ft with 2 Turns (QC): 3 Walk 150 ft (QC): 3 PT Plan Problem List Problem List: Activity Tolerance, Functional Strength, Safety, Balance, Gait, Transfer, Bed Mobility, ROM Treatment/Plan Treatment Plan: Continue Plan of Care Treatment Plan: Bed Mobility, Education, Functional Activity Brandie, Functional Strength, Gait, Safety, Therapeutic Exercise, Transfers Treatment Duration: Jun 22, 2021 Frequency: 6 times per week Estimated Hrs Per Day: .25 hour per day Patient and/or Family Agrees t: Yes Safety Risks/Education Patient Education: Transfer Techniques, Correct Positioning, Safety Issues Teaching Recipient: Patient Teaching Methods: Demonstration, Discussion Response to Teaching: Reinforcement Needed Time/GCodes Time In: 1309 Time Out: 1324 Total Billed Treatment Time: 15 Total Billed Treatment 1 visit FA NEETA YOUNGBLOOD PT Jun 12, 2021 13:32
--- NOTE | 2021-06-12 14:32 | Progress Note - Cardiology ---
Cardiology SOAP Progress Note Subjective: Gen malaise and weakness present No n/v/d No cp or palp or syncope Objective: I&O/Vital Signs 06/12/21 06/12/21 06/12/21 06/12/21 02:56 03:00 04:00 04:00 Pulse 103 106 102 Resp 23 21 29 B/P (MAP) 140/79 124/87 Pulse Ox 97 97 94 94 O2 Delivery NIV Bilevel NIV Bilevel NIV Bilevel O2 Flow Rate 30.00 30.00 4.00 30.00 FiO2 25 06/12/21 06/12/21 06/12/21 06/12/21 04:07 04:45 05:00 06:00 Temp 36.7 Pulse 96 105 90 Resp 19 25 12 B/P (MAP) 131/86 130/75 Pulse Ox 96 94 96 95 O2 Delivery NIV Bilevel NIV Bilevel NIV Bilevel NIV Bilevel O2 Flow Rate 25.00 25.00 25.00 25.00 06/12/21 06/12/21 06/12/21 06/12/21 06:40 06:49 07:00 07:00 Pulse 81 94 91 Resp 18 22 B/P (MAP) 139/70 Pulse Ox 92 93 O2 Delivery Nasal Cannula High Flow N/C Nasal Cannula O2 Flow Rate 4.00 4.00 4.00 06/12/21 06/12/21 06/12/21 06/12/21 07:45 08:00 08:00 08:30 Temp 36.4 Pulse 80 Resp 24 B/P (MAP) 131/78 Pulse Ox 94 97 95 O2 Delivery High Flow N/C Nasal Cannula High Flow N/C O2 Flow Rate 4.00 4.00 4.00 FiO2 06/12/21 06/12/21 06/12/21 06/12/21 08:32 09:00 10:00 10:40 Pulse 101 111 Resp 17 28 B/P (MAP) 99/57 139/56 Pulse Ox 98 97 96 O2 Delivery High Flow N/C Nasal Cannula Nasal Cannula Nasal Cannula O2 Flow Rate 4.00 4.00 4.00 4.00 06/12/21 06/12/21 06/12/21 06/12/21 11:00 12:00 12:33 13:00 Temp 36.9 Pulse 111 105 B/P (MAP) 146/65 Pulse Ox 97 94 O2 Delivery Nasal Cannula High Flow N/C O2 Flow Rate 4.00 4.00 06/12/21 00:00 Intake Total 490 ml Output Total 650 ml Balance -160 ml Weight (Pounds): 219 Weight (Ounces): 1.0 Weight (Calculated Kilograms): 99.390254 Constitutional: AAO x 3, well-developed, well-nourished Respiratory: No accessory muscle use, No respiratory distress; chest expansion is symmetric, chest is bilaterally symmetric, lungs clear to auscultation Cardiovascular: irregularly irregular; No JVD; tachycardia, S1 and S2 Gastrointestional: No audible bowel sounds; other (s/p abdominal surgery ) Extremities: no lower extremity edema bilateral Neurologic/Psychiatric: other (moves all limbs) Skin: warm/dry, other (incision intact and pink; slight drainage on dressing) Results/Procedures: Labs Laboratory Tests 06/11/21 17:29: Glucometer 156H 06/11/21 21:43: Blood Gas Puncture Site RIGHT RADIAL, Blood Gas Patient Temperature 37.4, Arterial Blood pH 7.27*L, Arterial Blood Partial Pressure CO2 60H, Arterial Blood Partial Pressure O2 119H, Arterial Blood HCO3 27, Arterial Blood Total CO2 28.6, Arterial Blood Oxygen Saturation 99, Arterial Blood Base Excess 0.7, [place] Test YES-POS, Blood Gas Ventilator Setting NO, Blood Gas Inspired Oxygen 4L NC 06/12/21 01:04: Glucometer 183H 06/12/21 04:41: Blood Gas Puncture Site RIGHT RADIAL, Blood Gas Patient Temperature 36.7, Arterial Blood pH 7.42, Arterial Blood Partial Pressure CO2 39, Arterial Blood Partial Pressure O2 66L, Arterial Blood HCO3 25, Arterial Blood Total CO2 26.3, Arterial Blood Oxygen Saturation 95, Arterial Blood Base Excess 1.1, [place] Test YES-POS, Blood Gas Ventilator Setting NO, Blood Gas Inspired Oxygen 25% BIPAP, White Blood Count 8.1, Red Blood Count 3.20L, Hemoglobin 9.5L, Hematocrit 31L, Mean Corpuscular Volume 96, Mean Corpuscular Hemoglobin 30, Mean Corpuscular Hemoglobin Concent 31L, Red Cell Distribution Width 14.7H, Platelet Count 197, Mean Platelet Volume 12.1, Immature Granulocyte % (Auto) 2, Neutrophils (%) (Auto) 75, Lymphocytes (%) (Auto) 10L, Monocytes (%) (Auto) 10, Eosinophils (%) (Auto) 3, Basophils (%) (Auto) 1, Neutrophils # (Auto) 6.1, Lymphocytes # (Auto) 0.8L, Monocytes # (Auto) 0.8, Eosinophils # (Auto) 0.2, Basophils # (Auto) 0.1, Immature Granulocyte # (Auto) 0.2H, Sodium Level 143, Potassium Level 3.5L, Chloride Level 107, Carbon Dioxide Level 22, Anion Gap 14, Blood Urea Nitrogen 19H, Creatinine 0.77, Estimat Glomerular Filtration Rate 76, BUN/Creatinine Ratio 25, Glucose Level 196H, Calcium Level 8.7, Corrected Calcium 9.7, Phosphorus Level 1.9L, Magnesium Level 1.7, Total Bilirubin 0.3, Aspartate Amino Transf (AST/SGOT) 15, Alanine Aminotransferase (ALT/SGPT) 15, Alkaline Phosphatase 60, Total Protein 5.0L, Albumin 2.7L, Beta-Hydroxybutyrate (Chem panel) 3.00H 06/12/21 12:38: Glucometer 174H Microbiology 06/06/21 Blood Culture - Final, Complete No growth 06/04/21 MRSA Screen - Final, Complete MRSA not isolated Laboratory Tests 06/11/21 05:32 06/12/21 04:41 A/P: Assessment: Ac systolic CHF - clinically improved S/P abdominal surgery on 06-06-[address] Glass - exploratory laparotomy with lysis of adhesions, release of small bowel obstruction, appendectomy Recent NSTEMI - conservative management Chronic a-fib - rate uncontrolled - OAC with Eliquis - currently being held d/t recent abd surgery CAD - h/o coronary stent placed 5-6 yrs ago at [facility] (follows with Dr. Craig at [facility]) - Echo on 06/06/21: LVEF 40-45%, anteroseptal hypokinesis, mild MR, PASP 65-70 mmHg COPD H/O TIA's HTN HLD Fibromyalgia Carotid arterial dz - details unknown Right hip fracture following a non-syncopal fall in May 2020 Prior GI history: 1) H/o upper and lower endoscopy on 07-04-[address] Cooper - no active bleeding; gastritis; ext and internal hemorrhoids. 2) H/o lap carmelo by Dr. Cooper on 07-04-20 Plan: Complex management due to multiple comorbidities Continue conservative management of NSTEMI A-fib with uncontrolled HR - d/t NPO status continue IV Diltiazem and iv beta- pieter and resume oral when able to take oral intake Add low-dose oral ASA back because now allowed partial oral intake resumption OAC and full anticoag to be resumed when full oral intake allowed. Currently, on enoxaparin 40 bid Diuretics as needed and as tolerated Monitor lab closely and replace electrolytes as needed I spoke with 2 of her daughters today and answered their questions in detail MICHELLE BREWER MD FACP FAC CCDS Jun 12, 2021 14:32
[2021-06-12 20:17] VITALS: BP 124/95
[2021-06-12 22:49] VITALS: BP 164/95
[2021-06-13] MEDS: meTOprolol 5 MG/5 ML (LOPRESSOR) VIAL IV SCH ×6 (00:02→23:35)
[2021-06-13] MEDS: inSUlin ASPART (NovoLOG) 1 UNIT/0.01 ML (CHARGE PER UNIT) SC SCH ×4 (00:02→18:38)
[2021-06-13] MEDS: fentaNYL INJ 100 MCG/2 ML AMP IVP PRN ×4 (01:06→20:40)
[2021-06-13 02:52] VITALS: BP 119/55
[2021-06-13] MEDS: RT-ALBUTEROL/IPRATROPIUM 3 ML (DUONEB) VIAL INH SCH ×4 (02:52→22:30)
[2021-06-13] MEDS: dilTIAZem DRIP PRE-MIX 125 ML IV SCH ×3 (03:38→23:35)
[2021-06-13] MEDS: AZTREONAM INJECTION 2,000 MG in NS (IVPB) 100 ML IV SCH ×2 (05:18→14:03)
[2021-06-13 05:32] LABS: BASOPHILS # (AUTO) 0.1 10^3/uL (0.0-0.1); BASOPHILS % (AUTO) 1 % (0-10); EOSINOPHILS # (AUTO) 0.4 10^3/uL (0.0-0.3); EOSINOPHILS % (AUTO) 4 % (0-10); HEMATOCRIT 32 % (35-52); HEMOGLOBIN 9.7 g/dL (11.5-16.0); LYMPHOCYTES # (AUTO) 0.6 10^3/uL (1.0-4.0); LYMPHOCYTES % (AUTO) 7 % (12-44); MEAN CORPUSCULAR HEMOGLOBIN 29 pg (25-34); MEAN CORPUSCULAR HGB CONC 30 g/dL (32-36); MEAN CORPUSCULAR VOLUME 97 fL (80-99); MEAN PLATELET VOLUME 11.8 fL (9.0-12.2); MONOCYTES # (AUTO) 0.8 10^3/uL (0.0-1.0); MONOCYTES % (AUTO) 9 % (0-12); NEUTROPHILS # (AUTO) 6.5 10^3/uL (1.8-7.8); NEUTROPHILS % (AUTO) 76 % (42-75); PLATELET COUNT 211 10^3/uL (130-400); WHITE BLOOD COUNT 8.5 10^3/uL (4.3-11.0)
[2021-06-13 05:42] LABS: ALBUMIN 2.7 GM/DL (3.2-4.5); POTASSIUM 3.9 MMOL/L (3.6-5.0)
[2021-06-13 05:43] LABS: CALCIUM 8.6 MG/DL (8.5-10.1)
[2021-06-13 05:45] LABS: TOTAL PROTEIN 5.2 GM/DL (6.4-8.2)
[2021-06-13 05:46] LABS: BILIRUBIN,TOTAL 0.3 MG/DL (0.1-1.0)
[2021-06-13 05:48] LABS: CREATININE SERUM 0.81 MG/DL (0.60-1.30); PHOSPHORUS 2.5 MG/DL (2.3-4.7)
[2021-06-13 05:51] LABS: MAGNESIUM 1.8 MG/DL (1.6-2.4)
[2021-06-13] MEDS: KCL 20 MEQ TAB (K-DUR) PO SCH (05:51)
[2021-06-13] MEDS: POTASSIUM CL 10MEQ/50ML IVPB 50 ML IV SCH (05:51)
[2021-06-13] MEDS: MAGNESIUM 1 GM/100 ML IVPB 100 ML IV SCH (05:52)
[2021-06-13 06:49] VITALS: BP 152/91
--- NOTE | 2021-06-13 06:54 | Progress Note - Surgery ---
BRIAN VILLEDA 06/13/21 0654: Subjective Date Seen by a Provider: Jun 13, 2021 Time Seen by a Provider: 06:32 Subjective/Events-last exam Pt reports that she feels better today than yesterday. Has not had any BMs since yesterday but reports that she has been having episodes of flatus. Complaining of diffuse abdominal pain. She has been able to tolerate the clear liquids diet. States that she did get up out of bed and into the chair yesterday. NG tube has been removed. Nursing reports that she had good urine output overnight. Review of Systems General: No Chills, No Other (fever) HEENT: No Head Aches, No Visual Changes Cardiovascular: No: Chest Pain, Palpitations Gastrointestinal: Abdominal Pain; No: Nausea, Vomiting Musculoskeletal: foot pain (b/l); No: back pain Objective Exam Vital Signs Date Time Temp Pulse Resp B/P (MAP) Pulse Ox O2 Delivery O2 Flow Rate FiO2 06/13/21 06:00 105 22 143/73 95 NIV Bilevel 28.00 06/13/21 05:00 104 23 137/78 96 NIV Bilevel 28.00 06/13/21 04:00 95 NIV Bilevel 28 06/13/21 04:00 37.0 06/13/21 04:00 105 22 129/59 94 NIV Bilevel 28.00 06/13/21 03:00 103 23 119/55 96 NIV Bilevel 28.00 06/13/21 02:52 93 25 97 28.00 06/13/21 02:00 96 17 137/77 95 NIV Bilevel 28.00 06/13/21 01:00 112 06/13/21 01:00 97 28 139/75 95 NIV Bilevel 28.00 06/13/21 00:00 87 25 137/86 92 NIV Bilevel 28.00 06/12/21 23:59 95 NIV Bilevel 28 06/12/21 23:00 101 21 125/89 96 NIV Bilevel 28.00 06/12/21 22:49 92 21 95 28.00 06/12/21 22:00 92 18 137/99 97 NIV Bilevel 28.00 06/12/21 21:00 97 20 135/64 99 NIV Bilevel 28.00 06/12/21 20:29 NIV Bilevel 28.00 3/2/22 20:17 107 31 94 28.00 06/12/21 20:15 NIV Bilevel 25.00 06/12/21 20:00 97 21 124/95 97 Nasal Cannula 2.00 06/12/21 20:00 95 NIV Bilevel 28 06/12/21 19:46 37.0 06/12/21 19:20 89 06/12/21 19:16 96 High Flow N/C 2.00 06/12/21 19:16 96 High Flow N/C 2.00 06/12/21 19:00 93 21 122/58 95 Nasal Cannula 2.00 06/12/21 18:00 80 28 151/75 93 Nasal Cannula 2.00 06/12/21 17:57 18 92 Nasal Cannula 2.00 06/12/21 17:00 105 27 132/90 97 Nasal Cannula 4.00 06/12/21 16:30 117 26 159/87 99 Nasal Cannula 4.00 06/12/21 16:15 103 23 150/81 98 Nasal Cannula 4.00 06/12/21 16:00 36.5 06/12/21 16:00 96 High Flow N/C 4.00 06/12/21 15:45 106 24 127/74 98 Nasal Cannula 4.00 06/12/21 15:15 99 22 140/90 95 Nasal Cannula 4.00 06/12/21 15:00 94 24 129/97 91 Nasal Cannula 4.00 06/12/21 14:56 96 High Flow N/C 4.00 06/12/21 14:30 85 18 147/80 95 Nasal Cannula 4.00 06/12/21 14:15 89 24 126/69 93 Nasal Cannula 4.00 06/12/21 14:00 89 22 115/76 94 Nasal Cannula 4.00 06/12/21 13:45 109 20 121/62 92 Nasal Cannula 4.00 06/12/21 13:30 109 18 129/88 92 Nasal Cannula 4.00 06/12/21 13:29 129 22 131/61 91 Nasal Cannula 4.00 06/12/21 13:00 105 06/12/21 13:00 104 23 111/61 97 Nasal Cannula 4.00 06/12/21 12:49 114 20 131/77 96 Nasal Cannula 4.00 06/12/21 12:33 94 High Flow N/C 4.00 06/12/21 12:00 36.9 06/12/21 12:00 112 12 132/75 98 Nasal Cannula 4.00 06/12/21 11:00 111 146/65 97 Nasal Cannula 4.00 06/12/21 10:40 96 Nasal Cannula 4.00 06/12/21 10:00 111 28 139/56 97 Nasal Cannula 4.00 06/12/21 09:00 101 17 99/57 98 Nasal Cannula 4.00 06/12/21 08:32 High Flow N/C 4.00 06/12/21 08:30 95 High Flow N/C 4.00 06/12/21 08:00 80 24 131/78 97 Nasal Cannula 4.00 06/12/21 08:00 94 High Flow N/C 4.00 06/12/21 07:45 36.4 06/12/21 07:00 91 22 139/70 93 Nasal Cannula 4.00 06/12/21 07:00 94 06/12/21 06:49 High Flow N/C 4.00 I & O 06/13/21 07:00 Intake Total 300 ml Output Total 825 ml Balance -525 ml Capillary Refill : Less Than 3 SecondsLess Than 3 Seconds General Appearance: No Apparent Distress, Chronically ill, Obese HEENT: Other (NG tube ) Neck: Normal Inspection, Non Tender, Supple, Other (central line in place) Respiratory: Chest Non Tender, Normal Breath Sounds, No Accessory Muscle Use, No Respiratory Distress Cardiovascular: Normal Peripheral Pulses, Irregularly Irregular Gastrointestinal: normal bowel sounds, soft, distended (Minimal); No guarding; tenderness (Incisional pain), other (Incisions intact and pink; no drainage) Extremity: Normal Inspection, Normal Range of Motion, Other (b/l foot tenderness) Neurologic/Psychiatric: Alert, Normal Mood/Affect Skin: Normal Color, Warm/Dry Lymphatic: No Adenopathy Results Lab Laboratory Tests 06/12/21 12:38: Glucometer 174H 06/12/21 17:16: Glucometer 192H 06/13/21 00:02: Glucometer 175H 06/13/21 05:20: White Blood Count 8.5, Red Blood Count 3.30L, Hemoglobin 9.7L, Hematocrit 32L, Mean Corpuscular Volume 97, Mean Corpuscular Hemoglobin 29, Mean Corpuscular Hemoglobin Concent 30L, Red Cell Distribution Width 15.0H, Platelet Count 211, Mean Platelet Volume 11.8, Immature Granulocyte % (Auto) 3, Neutrophils (%) (Auto) 76H, Lymphocytes (%) (Auto) 7L, Monocytes (%) (Auto) 9, Eosinophils (%) (Auto) 4, Basophils (%) (Auto) 1, Neutrophils # (Auto) 6.5, Lymphocytes # (Auto) 0.6L, Monocytes # (Auto) 0.8, Eosinophils # (Auto) 0.4H, Basophils # (Auto) 0.1, Immature Granulocyte # (Auto) 0.3H, Sodium Level 143, Potassium Level 3.9, Chloride Level 106, Carbon Dioxide Level 20L, Anion Gap 17H, Blood Urea Nitrogen 21H, Creatinine 0.81, Estimat Glomerular Filtration Rate 72, BUN/Creatinine Ratio 26, Glucose Level 237H, Calcium Level 8.6, Corrected Calcium 9.6, Phosphorus Level 2.5, Magnesium Level 1.8, Total Bilirubin 0.3, Aspartate Amino Transf (AST/SGOT) 11, Alanine Aminotransferase (ALT/SGPT) 15, Alkaline Phosphatase 60, Total Protein 5.2L, Albumin 2.7L, Beta-Hydroxybutyrate (Chem panel) 4.09H Microbiology 06/06/21 Blood Culture - Final, Complete No growth 06/04/21 MRSA Screen - Final, Complete MRSA not isolated Assessment/Plan Assessment/Plan Assessment/Plan S/P exploratory laparotomy with lysis of adhesions, release of small bowel obstruction, and incidental appendectomy AFib NSTEMI Neuropathy (bilateral feet) Diabetes mellitus NG tube removed HTN DVT prophylaxis(Lovenox at 40mg) Poor motivation. Currently on O2 via NC during the day and BIPAP at night. Continue azotreonam and metronidazole Continue Protonix QD and Zofran PRN NG tube was removed yesterday, Pt tolerating clears diet well, if she continues to have BMs and flatulence can consider changing to softs diet Pt needs to continue getting up out of bed and sitting in chair during the day IVFs; drake for accurate i/o Hgb Stable Monitor labs and vitals Followed by cardiology ELISA GLASS DO 06/13/21 1420: Subjective Subjective/Events-last exam More alert at time of visit. Passing flatus and bm. Did have small amount of emesis though today. Not feeling well. Urine output a little low. On clear liquids. Denies fever sweats chills shortness of breath or chest pain. Objective Exam General Appearance: No Apparent Distress, Chronically ill, Obese HEENT: PERRL/EOMI, Normal ENT Inspection Neck: Normal Inspection, Non Tender, Other (central line in place) Respiratory: Chest Non Tender, No Accessory Muscle Use, No Respiratory Distress Cardiovascular: No JVD, Irregularly Irregular Gastrointestinal: soft, distended (Minimal); No guarding; tenderness (Incisional pain), other (Incisions intact and pink; no drainage) Extremity: Normal Inspection, Normal Range of Motion Neurologic/Psychiatric: Alert, Normal Mood/Affect Skin: Normal Color, Warm/Dry Lymphatic: No Adenopathy Assessment/Plan Assessment/Plan Assessment/Plan S/P exploratory laparotomy with lysis of adhesions, release of small bowel obstruction, and incidental appendectomy AFib NSTEMI Neuropathy (bilateral feet) Diabetes mellitus NG tube removed HTN DVT prophylaxis(Lovenox at 40mg) Poor motivation. Currently on O2 via NC during the day and BIPAP at night. Continue azotreonam and metronidazole Continue Protonix QD and Zofran PRN NG tube was removed yesterday, Pt on clears diet we'll try sips since having bowel function but emesis one time. Pt needs to continue getting up out of bed and sitting in chair during the day IVFs; drake for accurate i/o Hgb Stable Monitor labs and vitals Followed by cardiology Supervisory-Addendum Brief Verification & Attestation Participated in pt care: history, MDM, physical Personally performed: exam, history, MDM, supervision of care Care discussed with: Medical Student Procedures: n/a Results interpretation: Verified all documentation Verification and Attestation of Medical Student E/M Service A medical student performed and documented this service in my presence. I reviewed and verified all information documented by the medical student and made modifications to such information, when appropriate. I personally performed the physical exam and medical decision making. Elisa Glass, Jun 13, 2021,14:20 BRIAN VILLEDA Jun 13, 2021 06:54 ELISA GLASS DO Jun 13, 2021 14:20
--- NOTE | 2021-06-13 08:51 | Progress Note - Cardiology ---
Cardiology SOAP Progress Note Subjective: Sitting up in recliner at the bedside States she feels "bad all over" No c/o CP or SOB or palpitations Objective: I&O/Vital Signs 06/13/21 06/13/21 06/13/21 06/13/21 21:00 21:16 21:17 22:00 Pulse 75 63 63 Resp 19 20 24 B/P (MAP) 110/45 130/72 Pulse Ox 91 87 95 O2 Delivery High Flow N/C NIV Bilevel NIV Bilevel O2 Flow Rate 4.00 25.00 28.00 25.00 06/13/21 06/13/21 06/13/21 06/14/21 23:00 23:40 23:59 00:00 Pulse 92 105 Resp 19 21 B/P (MAP) 127/93 127/84 Pulse Ox 94 94 90 94 O2 Delivery NIV Bilevel Nasal Cannula NIV Bilevel High Flow N/C O2 Flow Rate 25.00 4.00 4.00 FiO2 28 06/14/21 06/14/21 06/14/21 06/14/21 01:00 01:00 02:00 03:00 Pulse 89 89 83 85 Resp 21 15 17 B/P (MAP) 154/54 139/119 143/105 Pulse Ox 93 93 90 O2 Delivery High Flow N/C High Flow N/C High Flow N/C O2 Flow Rate 4.00 4.00 4.00 06/14/21 06/14/21 06/14/21 06/14/21 04:00 04:00 04:00 05:00 Temp 37.0 Pulse 101 90 Resp 23 B/P (MAP) 144/93 133/74 Pulse Ox 90 96 95 O2 Delivery NIV Bilevel High Flow N/C High Flow N/C O2 Flow Rate 4.00 4.00 FiO2 28 06/14/21 06/14/21 06/14/21 06/14/21 06:00 07:00 07:00 07:26 Temp 36.1 Pulse 93 95 85 Resp 22 17 B/P (MAP) 141/101 142/79 Pulse Ox 94 93 O2 Delivery High Flow N/C High Flow N/C O2 Flow Rate 4.00 4.00 06/14/21 06/14/21 06/14/21 07:42 07:48 08:00 Pulse 96 Resp 15 B/P (MAP) 128/63 Pulse Ox 97 97 97 O2 Delivery Vapotherm Vapotherm Vapotherm O2 Flow Rate 40.00 30.00 30.00 80.00 FiO2 100 80 06/14/21 00:00 Intake Total 300 ml Output Total 1650 ml Balance -1350 ml Weight (Pounds): 219 Weight (Ounces): 1.0 Weight (Calculated Kilograms): 99.973999 Constitutional: AAO x 3, well-developed, well-nourished Respiratory: No accessory muscle use, No respiratory distress; chest expansion is symmetric, chest is bilaterally symmetric, lungs clear to auscultation Cardiovascular: irregularly irregular; No JVD; tachycardia, S1 and S2 Gastrointestional: No audible bowel sounds; other (s/p abdominal surgery ) Extremities: no lower extremity edema bilateral Neurologic/Psychiatric: other (moves all limbs) Skin: warm/dry, other (incision intact and pink; slight drainage on dressing) Results/Procedures: Labs Laboratory Tests 06/13/21 09:28: Blood Gas Puncture Site UNK, Blood Gas Patient Temperature 36.5, Arterial Blood pH 7.35L, Arterial Blood Partial Pressure CO2 50H, Arterial Blood Partial Pressure O2 73L, Arterial Blood HCO3 27, Arterial Blood Total CO2 28.5, Arterial Blood Oxygen Saturation 95, Arterial Blood Base Excess 1.7, [place] Test UNK, Blood Gas Ventilator Setting NO, Blood Gas Inspired Oxygen 4 L 06/13/21 10:56: Glucometer 223H 06/13/21 17:05: Glucometer 211H 06/14/21 00:00: Glucometer 138H 06/14/21 05:47: White Blood Count 13.3H, Red Blood Count 3.71L, Hemoglobin 10.7L, Hematocrit 37, Mean Corpuscular Volume 99, Mean Corpuscular Hemoglobin 29, Mean Corpuscular Hemoglobin Concent 29L, Red Cell Distribution Width 15.0H, Platelet Count 263, Mean Platelet Volume 11.9, Immature Granulocyte % (Auto) 4, Neutrophils (%) (Auto) 84H, Lymphocytes (%) (Auto) 4L, Monocytes (%) (Auto) 7, Eosinophils (%) (Auto) 1, Basophils (%) (Auto) 1, Neutrophils # (Auto) 11.2H, Lymphocytes # (Auto) 0.5L, Monocytes # (Auto) 0.9, Eosinophils # (Auto) 0.2, Basophils # (Auto) 0.1, Immature Granulocyte # (Auto) 0.5H, Neutrophils % (Manual) 90, Lymphocytes % (Manual) 2, Monocytes % (Manual) 4, Eosinophils % (Manual) 2, Band Neutrophils 2, Blood Morphology Comment NORMAL, Sodium Level 143, Potassium Level 3.9, Chloride Level 105, Carbon Dioxide Level 24, Anion Gap 14, Blood Urea Nitrogen 20H, Creatinine 0.75, Estimat Glomerular Filtration Rate 78, BUN/Creatinine Ratio 27, Glucose Level 231H, Calcium Level 8.7, Corrected Calcium 9.6, Phosphorus Level 2.7, Magnesium Level 1.7, Total Bilirubin 0.3, Aspartate Amino Transf (AST/SGOT) 15, Alanine Aminotransferase (ALT/SGPT) 18, Alkaline Phosphatase 74, Total Protein 5.6L, Albumin 2.9L, Beta-Hydroxybutyrate (Chem panel) 2.35H Microbiology 06/06/21 Blood Culture - Final, Complete No growth 06/04/21 MRSA Screen - Final, Complete MRSA not isolated A/P: Assessment: Ac systolic CHF - clinically improved S/P abdominal surgery on 06-06-[address] Glass - exploratory laparotomy with lysis of adhesions, release of small bowel obstruction, appendectomy Recent NSTEMI - conservative management Chronic a-fib - rate uncontrolled - OAC with Eliquis - currently being held d/t recent abd surgery - Continue IV Cardizem and BB - titrate fro rate control CAD - h/o coronary stent placed 5-6 yrs ago at [facility] (follows with Dr. Craig at [facility]) - Echo on 06/06/21: LVEF 40-45%, anteroseptal hypokinesis, mild MR, PASP 65-70 mmHg COPD H/O TIA's HTN HLD Fibromyalgia Carotid arterial dz - details unknown Right hip fracture following a non-syncopal fall in May 2020 Prior GI history: 1) H/o upper and lower endoscopy on 07-04-[address] Cooper - no active bleeding; gastritis; ext and internal hemorrhoids. 2) H/o lap carmelo by Dr. Cooper on 07-04-20 Plan: Complex management due to multiple comorbidities Continue conservative management of NSTEMI A-fib with uncontrolled HR - d/t NPO status continue IV Diltiazem and iv beta- pieter and resume oral when able to take oral intake - adjust IV BB dose today Add low-dose oral ASA back because now allowed partial oral intake resumption OAC and full anticoag to be resumed when full oral intake allowed. Currently, on enoxaparin 40 bid Diuretics as needed and as tolerated Monitor lab closely and replace electrolytes as needed MELISSA WESTON Jun 13, 2021 08:51
[2021-06-13] MEDS ORDERED: DIGOXIN 0.25 MG/ML (LANOXIN) 2 ML AMP ONE (08:58)
--- NOTE | 2021-06-13 08:58 | Tele-ICU Progress Note ---
Subjective Date Seen by a Provider: Jun 13, 2021 Time Seen by a Provider: 08:58 Subjective/Events-last exam Today she is sitting out of bed to chair. She is using 4 L of oxygen during daytime and currently. Using BiPAP at nighttime. She had 2 bowel movements. She currently has atrial fibrillation with rapid ventricular rate with a heart rate of 135. Cardizem drip is at 10 mg/h. We have given digoxin 0.25 mg IV push which temporarily helped her heart rate but when he is started having nausea and vomiting her heart rate went up to again 821n106l per minute. Hence Cardizem drip increase it to 15 mg/h. Otherwise she is in no acute respiratory distress. Review of Systems ROS PER RN Sepsis Event Evaluation Height, Weight, BMI Height: 5'63.00" Weight: 219lbs. 1.0oz. 99.200375sc; 37.00 BMI Method: Exam Exam Patient acknowledged, consented, and participated in this virtual visit which was conducted using real time audio/video Vital Signs Date Time Temp Pulse Resp B/P (MAP) Pulse Ox O2 Delivery O2 Flow Rate FiO2 06/13/21 07:26 37.5 06/13/21 07:00 100 06/13/21 06:49 93 23 95 28.00 06/13/21 06:00 105 22 143/73 95 NIV Bilevel 28.00 06/13/21 05:00 104 23 137/78 96 NIV Bilevel 28.00 06/13/21 04:00 95 NIV Bilevel 28 06/13/21 04:00 37.0 06/13/21 04:00 105 22 129/59 94 NIV Bilevel 28.00 06/13/21 03:00 103 23 119/55 96 NIV Bilevel 28.00 06/13/21 02:52 93 25 97 28.00 06/13/21 02:00 96 17 137/77 95 NIV Bilevel 28.00 06/13/21 01:00 112 06/13/21 01:00 97 28 139/75 95 NIV Bilevel 28.00 06/13/21 00:00 87 25 137/86 92 NIV Bilevel 28.00 06/12/21 23:59 95 NIV Bilevel 28 06/12/21 23:00 101 21 125/89 96 NIV Bilevel 28.00 06/12/21 22:49 92 21 95 28.00 06/12/21 22:00 92 18 137/99 97 NIV Bilevel 28.00 06/12/21 21:00 97 20 135/64 99 NIV Bilevel 28.00 06/12/21 20:29 NIV Bilevel 28.00 06/12/21 20:17 107 31 94 28.00 06/12/21 20:15 NIV Bilevel 25.00 06/12/21 20:00 97 21 124/95 97 Nasal Cannula 2.00 06/12/21 20:00 95 NIV Bilevel 28 06/12/21 19:46 37.0 06/12/21 19:20 89 06/12/21 19:16 96 High Flow N/C 2.00 06/12/21 19:16 96 High Flow N/C 2.00 06/12/21 19:00 93 21 122/58 95 Nasal Cannula 2.00 06/12/21 18:00 80 28 151/75 93 Nasal Cannula 2.00 06/12/21 17:57 18 92 Nasal Cannula 2.00 06/12/21 17:00 105 27 132/90 97 Nasal Cannula 4.00 06/12/21 16:30 117 26 159/87 99 Nasal Cannula 4.00 06/12/21 16:15 103 23 150/81 98 Nasal Cannula 4.00 06/12/21 16:00 36.5 06/12/21 16:00 96 High Flow N/C 4.00 06/12/21 15:45 106 24 127/74 98 Nasal Cannula 4.00 06/12/21 15:15 99 22 140/90 95 Nasal Cannula 4.00 06/12/21 15:00 94 24 129/97 91 Nasal Cannula 4.00 06/12/21 14:56 96 High Flow N/C 4.00 06/12/21 14:30 85 18 147/80 95 Nasal Cannula 4.00 06/12/21 14:15 89 24 126/69 93 Nasal Cannula 4.00 06/12/21 14:00 89 22 115/76 94 Nasal Cannula 4.00 06/12/21 13:45 109 20 121/62 92 Nasal Cannula 4.00 06/12/21 13:30 109 18 129/88 92 Nasal Cannula 4.00 06/12/21 13:29 129 22 131/61 91 Nasal Cannula 4.00 06/12/21 13:00 105 06/12/21 13:00 104 23 111/61 97 Nasal Cannula 4.00 06/12/21 12:49 114 20 131/77 96 Nasal Cannula 4.00 06/12/21 12:33 94 High Flow N/C 4.00 06/12/21 12:00 36.9 06/12/21 12:00 112 12 132/75 98 Nasal Cannula 4.00 06/12/21 11:00 111 146/65 97 Nasal Cannula 4.00 06/12/21 10:40 96 Nasal Cannula 4.00 06/12/21 10:00 111 28 139/56 97 Nasal Cannula 4.00 06/12/21 09:00 101 17 99/57 98 Nasal Cannula 4.00 I & O 06/13/21 07:00 Intake Total 300 ml Output Total 825 ml Balance -525 ml Height & Weight Height: 5'63.00" Weight: 219lbs. 1.0oz. 99.929929lq; 37.00 BMI Method: General Appearance: No Apparent Distress, Chronically ill, Obese HEENT: Other (NG tube ) Neck: Normal Inspection, Non Tender, Supple, Other (central line in place) Respiratory: Chest Non Tender, Normal Breath Sounds, No Accessory Muscle Use, No Respiratory Distress Cardiovascular: Normal Peripheral Pulses, Irregularly Irregular Capillary Refill: Less Than 3 Seconds Gastrointestinal: normal bowel sounds, soft, distended (Minimal); No guarding; tenderness (Incisional pain), other (Incisions intact and pink; no drainage) Extremity: Normal Inspection, Normal Range of Motion, Other (b/l foot tenderness) Neurologic/Psychiatric: Alert, Normal Mood/Affect Skin: Normal Color, Warm/Dry Lymphatic: No Adenopathy Other comments PE PER RN Results Lab Laboratory Tests 06/12/21 04:41 06/13/21 05:20 Assessment/Plan Assessment/Plan 1. Postoperative pulmonary insufficiency improved and on oxygen via n/c 2. Small bowel obstruction status post exploratory laparotomy and lysis of adhesions 3. Diabetic ketoacidosis improved and on insulin s/c 4. Hyponatremia improved 5. Non-STEMI, cardiology on the case. 6. Atrial fibrillation, cardiology on the case. 7. COPD clinically stable. Recommendations 1. continue oxygen via n/c 2. IVF to kvo 3. Atrial fibrillation management per cardiology. will consider iv dig if cardizem alone does not help 4. Diabetes management per primary care. 5. Non-STEMI management per cardiology. 6. DVT prophylaxis and ulcer prophylaxis. 7. Postoperative surgical management for general surgery. Critical Care: Critically Ill Patient Time spent with patient (mins): 20 JIMMY REILLY MD Jun 13, 2021 08:58
[2021-06-13] MEDS ORDERED: DIGOXIN 0.25 MG/ML (LANOXIN) 2 ML AMP IV ONE (09:00)
[2021-06-13] MEDS: metroNIDAZOLE 500MG/100ML IVPB 100 ML IV SCH (09:04)
[2021-06-13] MEDS: ENOXAPARIN 40 MG/0.4 ML (LOVENOX) SYR SC SCH (09:04)
[2021-06-13] MEDS: PANTOPRAZOLE 40 MG (PROTONIX) VIAL IV SCH (09:04)
[2021-06-13] MEDS: ASPIRIN 81 MG CHEW (CHILDREN'S ASA) PO SCH ×2 (09:04→09:15)
--- NOTE | 2021-06-13 09:08 | Physical Therapy Daily Note ---
PT Daily Note-Current Subjective Patient presents laying in bed and agrees to move to the chair. Mental Status Patient Orientation: Person Attachments: Oxygen, Grant Catheter, IV Transfers SCALE: Activities may be completed with or without assistive devices. 9-[id number]-zxydfah completes the activity by him/herself with no assistance from a helper. 5-Set-up or Clean-up Assistance-helper sets up or cleans up; patient completes activity. [place] assists only prior to or following the activity. 4-Supervision or Touching Assistance-helper provides verbal cues and/or touching/steadying and/or contact guard assistance as patient completes activity. Assistance may be provided throughout the activity or intermittently. 3-Partial/Moderate Assistance-helper does LESS THAN HALF the effort. [place] lifts, holds or supports trunk or limbs, but provides less than half the effort. 2-Substantial/Maximal Assistance-helper does MORE THAN HALF the effort. [place] lifts or holds trunk or limbs and provides more than half the effort. 5-Hycqjplpa-cqlamg does ALL the effort. Patient does none of the effort to complete the activity. Or, the assistance of 2 or more helpers is required for the patient to complete the activity. If activity was not attempted, code reason: 7-Patient Refused. 9-Not Applicable-not attempted and the patient did not perform the activity before the current illness, exacerbation or injury. 10-Not Attempted due to Environmental Limitations-(lack of equipment, weather restraints, etc.). 88-Not Attempted due to Medical Conditions or Safety Concerns. Lying to Sitting/Side of Bed(Q: 1 Sit to Stand (QC): 1 Chair/[id number]-gn-Bjhmd Xfer(QC): 1 Patient required mod assist x2 for bed mobility and transfer to the chair. Gait Training Does the Patient Walk?: No and Walking Goal IS indicated Assessment Patient required mod assist x2 for bed mobility and sit to stand to transfer to the chair. Patient reported significant fatigue after transferring to the chair and reported that she couldn't perform other exercises. PT Alf Goals Alf Goals PT Alf Goals Time Frame: Jun 22, 2021 Roll Left & Right (QC): 4 Sit to Lying (QC): 4 Lying-Sitting on Side/Bed(QC): 4 Sit to Stand (QC): 4 Chair/Dmq-xk-Zposj Xfer(QC): 4 Toilet Transfer (QC): 4 Does the Patient Walk: Yes Walk 10 feet (QC): 4 Walk 50ft with 2 Turns (QC): 3 Walk 150 ft (QC): 3 PT Plan Problem List Problem List: Activity Tolerance, Functional Strength, Safety, Balance, Gait, Transfer, Bed Mobility, ROM Treatment/Plan Treatment Plan: Continue Plan of Care Treatment Plan: Bed Mobility, Education, Functional Activity Brandie, Functional Strength, Gait, Safety, Therapeutic Exercise, Transfers Treatment Duration: Jun 22, 2021 Frequency: 6 times per week Estimated Hrs Per Day: .25 hour per day Patient and/or Family Agrees t: Yes Time/GCodes Time In: 735 Time Out: 749 Total Billed Treatment Time: 14 Total Billed Treatment 1 Visit FA 14 min LUZ MARIA ONEIL PT Jun 13, 2021 09:08
[2021-06-13] MEDS: ONDANSETRON 4 MG/2 ML (SDV) Z0FRAN IV PRN ×3 (09:14→20:40)
[2021-06-13 09:37] LABS: ABG BASE EXCESS 1.7 MMOL/L (-2.5-2.5); ABG OXYGEN SATURATION 95 % (94-100); ABG PCO2 50 MMHG (35-45); ABG PH 7.35 (7.37-7.43); ABG PO2 73 MMHG (79-93); ABG TCO2 28.5 MMOL/L (21.0-31.0)
[2021-06-13 09:40] LABS: INSPIRED O2 4 L; PATIENT TEMP 36.5; VENTILATOR NO
[2021-06-13] MEDS: NS IV 1000 ML 1,000 ML IV SCH (10:23)
[2021-06-13] MEDS ORDERED: PROMETHAZINE INJ 25 MG/ML (PHENERGAN) AMP ONE (13:57)
[2021-06-13] MEDS ORDERED: FUROSEMIDE 40 MG/4 ML INJ (LASIX) ONE (13:57)
[2021-06-13] MEDS ORDERED: FUROSEMIDE 40 MG/4 ML INJ (LASIX) IVP NR (14:00)
[2021-06-13] MEDS ORDERED: PROMETHAZINE INJ 25 MG/ML (PHENERGAN) AMP IVP NR ×2 (14:00)
--- NOTE | 2021-06-13 14:29 | Progress Note ---
Subjective Subjective/Events-last exam Sitting up in chair, NG out. States she is still hurting, has been passing gas, but no BM yesterday. Objective Exam Last Set of Vital Signs Vital Signs Date Time Temp Pulse Resp B/P (MAP) Pulse Ox O2 Delivery O2 Flow Rate FiO2 06/13/21 14:00 90 23 136/59 94 High Flow N/C 4.00 06/13/21 11:04 36.9 06/13/21 04:00 28 Capillary Refill : Less Than 3 SecondsLess Than 3 Seconds I&O Intake and Output 06/13/21 00:00 Intake Total 675 ml Output Total 880 ml Balance -205 ml Intake Oral 300 ml IV Total 375 ml Output Urine Total 880 ml # Bowel Movements 1 General: Alert, No Acute Distress Lungs: Clear to Auscultation, Normal Air Movement Heart: Other (irregularly irregular) Abdomen: Other (decreased bowel sounds, minimal tenderness, minimal distension) Psych/Mental Status: Mood NL Results/Procedures Lab Laboratory Tests 06/12/21 17:16: Glucometer 192H 06/13/21 00:02: Glucometer 175H 06/13/21 05:20: White Blood Count 8.5, Red Blood Count 3.30L, Hemoglobin 9.7L, Hematocrit 32L, Mean Corpuscular Volume 97, Mean Corpuscular Hemoglobin 29, Mean Corpuscular Hemoglobin Concent 30L, Red Cell Distribution Width 15.0H, Platelet Count 211, Mean Platelet Volume 11.8, Immature Granulocyte % (Auto) 3, Neutrophils (%) (Auto) 76H, Lymphocytes (%) (Auto) 7L, Monocytes (%) (Auto) 9, Eosinophils (%) (Auto) 4, Basophils (%) (Auto) 1, Neutrophils # (Auto) 6.5, Lymphocytes # (Auto) 0.6L, Monocytes # (Auto) 0.8, Eosinophils # (Auto) 0.4H, Basophils # (Auto) 0.1, Immature Granulocyte # (Auto) 0.3H, Sodium Level 143, Potassium Level 3.9, Chloride Level 106, Carbon Dioxide Level 20L, Anion Gap 17H, Blood Urea Nitrogen 21H, Creatinine 0.81, Estimat Glomerular Filtration Rate 72, BUN/Creatinine Ratio 26, Glucose Level 237H, Calcium Level 8.6, Corrected Calcium 9.6, Phosphorus Level 2.5, Magnesium Level 1.8, Total Bilirubin 0.3, Aspartate Amino Transf (AST/SGOT) 11, Alanine Aminotransferase (ALT/SGPT) 15, Alkaline Phosphatase 60, Total Protein 5.2L, Albumin 2.7L, Beta-Hydroxybutyrate (Chem panel) 4.09H 06/13/21 09:28: Blood Gas Puncture Site UNK, Blood Gas Patient Temperature 36.5, Arterial Blood pH 7.35L, Arterial Blood Partial Pressure CO2 50H, Arterial Blood Partial Pressure O2 73L, Arterial Blood HCO3 27, Arterial Blood Total CO2 28.5, Arterial Blood Oxygen Saturation 95, Arterial Blood Base Excess 1.7, Eldon Test UNK, Blood Gas Ventilator Setting NO, Blood Gas Inspired Oxygen 4 L 06/13/21 10:56: Glucometer 223H Microbiology 06/06/21 Blood Culture - Final, Complete No growth 06/04/21 MRSA Screen - Final, Complete MRSA not isolated Radiology NAME: BERNARDO BUCKLEY [facility] REC#: [id number] PT STATUS: REG ER : 1935 PHYSICIAN: EDI ONEAL MD ADMIT DATE: 06/04/21/ER FS Signed Date of Exam:06/04/21 CT ABDOMEN/PELVIS W PROCEDURE: CT abdomen and pelvis with contrast. TECHNIQUE: Multiple contiguous axial images were obtained through the abdomen and pelvis after administration of intravenous contrast. Auto Exposure Controls were utilized during the CT exam to meet ALARA standards for radiation dose reduction. All CT scans use one or more of the following dose optimizing techniques: automated exposure control, MA and/or KvP adjustment based on patient size and exam type or iterative reconstruction. INDICATION: Abdominal pain. COMPARISON: No prior studies are available for comparison. FINDINGS: Lung bases are clear. There is generalized low density throughout the liver, consistent with hepatic steatosis. No discrete liver mass is detected. Gallbladder is surgically absent. No biliary ductal dilatation is seen. Pancreas and spleen are unremarkable. No adrenal mass is detected. Right kidney contains a small cortical low-attenuation lesion in the upper pole measuring 16 mm and suggestive of a cyst. No hydronephrosis noted. Aorta is heavily calcified but nonaneurysmal. There appear to be some dilated and fluid-filled small bowel loops in the central abdomen. There is significant laxity to the anterior abdominal wall with diastasis of the rectus musculature. No definite focal abdominal wall defect is seen to suggest a ventral hernia. No bowel wall thickening is seen. There are normal-caliber small bowel loops distally and possibility of small bowel obstruction cannot be excluded. There is no free air. There is no free fluid or fluid collection. Bladder is decompressed by Grant catheter. Bony structures demonstrate compression deformity of T11 vertebral body which is near vertebra plana. There is also probable superior endplate fracture of L2. These could be chronic. There is no retropulsion. IMPRESSION: 1. Dilated small bowel loops with transition distally, concerning for small bowel obstruction. Small bowel study would be useful for further evaluation. No free air, free fluid or fluid collection is detected. 2. Probable chronic compression deformities involving T11 and L2. Dictated by: Dictated on workstation # [id number] Dict: 06/04/211912 Trans: 06/04/211938 [facility] [id number] Interpreted by: LUIS ANTONIO ARCHULETA MD Electronically signed by: LUIS ANTONIO ARCHULETA MD 06/04/211938 NAME: BERNARDO BUCKLEY [facility] REC#: [id number] PT STATUS: ADM IN : 1935 PHYSICIAN: MARK PAT DO ADMIT DATE: 06/04/21/ICU Signed Date of Exam:06/04/21 CHEST 1 VIEW, AP/PA ONLY Portable chest COMPARISON to prior study from earlier in the same day. INDICATION: Central line placement. FINDINGS: A right internal jugular central line has been placed. This terminates within the distal SVC. There are no findings of a pneumothorax. Pulmonary interstitial prominence and heart size are unchanged from prior examination. There may be a trace left-sided effusion. There is no new alveolar consolidation IMPRESSION: 1. Interval placement of a new right internal jugular central line without pneumothorax. 2. Stable prominence of the pulmonary interstitial markings. 3. Possible trace left effusion. Dictated by: Dictated on workstation # [id number] Dict: 06/04/212217 Trans: 06/04/212249 [facility] [id number] Interpreted by: JOSE D BUCKNER MD Electronically signed by: JOSE D BUCKNER MD 02/22/22 2250 Assessment/Plan Assessment/Plan (1) Small bowel obstruction Status: Acute Assessment & Plan: s/p exploratory laparotomy with lysis of adhesions, release of small bowel obstruction, and incidental appendectomy on 06/06, appreciate Surgery recommendations. NG remains in place, positive BM this morning. 06/12 On aztreonam and metronidazole, day 5, hopeful to d/c NG tube today if able to get out of bed. 06/13- final day of aztreonam/metronidazole. NG removed yesterday, continue to work on increasing activity. (2) DKA, type 2 Status: Resolved Assessment & Plan: s/p insulin drip, has positive beta hydroxybutyrate, but AG and bicarb remain normal. Sliding scale insulin. 06/13 CO2 and AG slightly abnormal, but repeat ABG with normal bicarb and mildly elevated pCO2 more consistent with respiratory acidosis. Qualifiers: Qualified Codes: E11.10 - Type 2 diabetes mellitus with ketoacidosis without coma (3) NSTEMI (non-ST elevated myocardial infarction) Status: Acute Assessment & Plan: Conservative management with medications, appreciate Cardiology recommendations. (4) Atrial fibrillation Status: Chronic Assessment & Plan: Requiring diltiazem drip, appreciate Cardiology recommendations. Qualifiers: Qualified Codes: I48.20 - Chronic atrial fibrillation, unspecified (5) CAD (coronary artery disease) Status: Chronic Assessment & Plan: Appreciate Cardiology recommendations Echo on 06/06/21: LVEF 40-45%, with anteroseptal hypokinesis Qualifiers: (6) Essential (primary) hypertension Status: Chronic (7) Respiratory acidosis Status: Resolved Assessment & Plan: 06/10 pH today remains 7.3, but metabolic acidosis is resolve d- AG closed and bicarb normal, now with elevated pH, but good mental status, monitor and recheck pH later today 06/11- pH and pCO2 worsened on repeat yesterday later in day, on bipap overnight with improvement and mental status improved today as well. 3/2- used bipap overnight and clinical status remains good on supplemental oxygen this morning 3/3 continue nightly bipap (8) COPD (chronic obstructive pulmonary disease) Status: Chronic Assessment & Plan: Duoneb q4, not doing well with IS, switching to acapella. Resume home fluticasone/vilanterol. 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
--- NOTE | 2021-06-13 17:35 | Progress Note - Cardiology ---
Cardiology SOAP Progress Note Subjective: Gen malaise and weakness No cp or palp or syncope No n/v Some gen abd discomfort Objective: I&O/Vital Signs 06/13/21 06/13/21 06/13/21 06/13/21 06:00 06:49 07:00 07:00 Pulse 105 93 92 100 Resp 22 26 B/P (MAP) 143/73 161/89 Pulse Ox 95 95 92 O2 Delivery NIV Bilevel NIV Bilevel O2 Flow Rate 28.00 28.00 28.00 06/13/21 06/13/21 06/13/21 06/13/21 07:26 08:00 08:00 09:15 Temp 37.5 Pulse 122 105 Resp 26 B/P (MAP) 161/89 112/88 Pulse Ox 92 90 96 O2 Delivery High Flow N/C Nasal Cannula High Flow N/C O2 Flow Rate 8.00 4.00 8.00 06/13/21 06/13/21 06/13/21 06/13/21 10:00 11:00 11:04 11:15 Temp 36.9 Pulse 103 103 Resp 48 95 B/P (MAP) 133/63 132/75 Pulse Ox 96 95 96 O2 Delivery NIV Bilevel High Flow N/C High Flow N/C O2 Flow Rate 28.00 4.00 3.00 06/13/21 06/13/21 06/13/21 06/13/21 11:52 12:00 13:00 13:09 Pulse 108 89 78 Resp 23 B/P (MAP) 118/109 133/84 Pulse Ox 90 96 94 O2 Delivery Nasal Cannula High Flow N/C High Flow N/C O2 Flow Rate 4.00 4.00 4.00 06/13/21 06/13/21 06/13/21 06/13/21 14:00 15:00 15:58 16:00 Temp 36.7 Pulse 90 117 92 Resp 23 23 B/P (MAP) 136/59 151/87 139/56 Pulse Ox 94 97 95 O2 Delivery High Flow N/C High Flow N/C High Flow N/C O2 Flow Rate 4.00 4.00 4.00 06/13/21 06/13/21 16:20 17:00 Pulse 80 Resp 22 B/P (MAP) 135/54 Pulse Ox 90 93 O2 Delivery Nasal Cannula High Flow N/C O2 Flow Rate 4.00 4.00 06/13/21 00:00 Intake Total 300 ml Output Total 400 ml Balance -100 ml Weight (Pounds): 219 Weight (Ounces): 1.0 Weight (Calculated Kilograms): 99.600769 Constitutional: AAO x 3, well-developed, well-nourished Respiratory: No accessory muscle use, No respiratory distress; chest expansion is symmetric, chest is bilaterally symmetric, lungs clear to auscultation Cardiovascular: irregularly irregular; No JVD; tachycardia, S1 and S2 Gastrointestional: No audible bowel sounds; other (s/p abdominal surgery ) Extremities: no lower extremity edema bilateral Neurologic/Psychiatric: other (moves all limbs) Skin: warm/dry, other (incision intact and pink; slight drainage on dressing) Results/Procedures: Labs Laboratory Tests 06/13/21 00:02: Glucometer 175H 06/13/21 05:20: White Blood Count 8.5, Red Blood Count 3.30L, Hemoglobin 9.7L, Hematocrit 32L, Mean Corpuscular Volume 97, Mean Corpuscular Hemoglobin 29, Mean Corpuscular Hemoglobin Concent 30L, Red Cell Distribution Width 15.0H, Platelet Count 211, Mean Platelet Volume 11.8, Immature Granulocyte % (Auto) 3, Neutrophils (%) (Auto) 76H, Lymphocytes (%) (Auto) 7L, Monocytes (%) (Auto) 9, Eosinophils (%) (Auto) 4, Basophils (%) (Auto) 1, Neutrophils # (Auto) 6.5, Lymphocytes # (Auto) 0.6L, Monocytes # (Auto) 0.8, Eosinophils # (Auto) 0.4H, Basophils # (Auto) 0.1, Immature Granulocyte # (Auto) 0.3H, Sodium Level 143, Potassium Level 3.9, Chloride Level 106, Carbon Dioxide Level 20L, Anion Gap 17H, Blood Urea Nitrogen 21H, Creatinine 0.81, Estimat Glomerular Filtration Rate 72, BUN/Creatinine Ratio 26, Glucose Level 237H, Calcium Level 8.6, Corrected Calcium 9.6, Phosphorus Level 2.5, Magnesium Level 1.8, Total Bilirubin 0.3, Aspartate Amino Transf (AST/SGOT) 11, Alanine Aminotransferase (ALT/SGPT) 15, Alkaline Phosphatase 60, Total Protein 5.2L, Albumin 2.7L, Beta-Hydroxybutyrate (Chem panel) 4.09H 06/13/21 09:28: Blood Gas Puncture Site UNK, Blood Gas Patient Temperature 36.5, Arterial Blood pH 7.35L, Arterial Blood Partial Pressure CO2 50H, Arterial Blood Partial Pressure O2 73L, Arterial Blood HCO3 27, Arterial Blood Total CO2 28.5, Arterial Blood Oxygen Saturation 95, Arterial Blood Base Excess 1.7, Eldon Test UNK, Blood Gas Ventilator Setting NO, Blood Gas Inspired Oxygen 4 L 06/13/21 10:56: Glucometer 223H 06/13/21 17:05: Glucometer 211H Microbiology 06/06/21 Blood Culture - Final, Complete No growth 06/04/21 MRSA Screen - Final, Complete MRSA not isolated A/P: Assessment: Ac systolic CHF - clinically improved S/P abdominal surgery on 06-06-[address] Glass - exploratory laparotomy with lysis of adhesions, release of small bowel obs truction, appendectomy Recent NSTEMI - conservative management Chronic a-fib - rate uncontrolled - OAC with Eliquis - currently being held d/t recent abd surgery - Continue IV Cardizem and BB - titrate fro rate control CAD - h/o coronary stent placed 5-6 yrs ago at [facility] (follows with Dr. Craig at [facility]) - Echo on 06/06/21: LVEF 40-45%, anteroseptal hypokinesis, mild MR, PASP 65-70 mmHg COPD H/O TIA's HTN HLD Fibromyalgia Carotid arterial dz - details unknown Right hip fracture following a non-syncopal fall in May 2020 Prior GI history: 1) H/o upper and lower endoscopy on 07-04-[address] Cooper - no active bleeding; gastritis; ext and internal hemorrhoids. 2) H/o lap carmelo by Dr. Cooper on 07-04-20 Plan: Complex management due to multiple comorbidities Continue conservative management of NSTEMI A-fib with uncontrolled HR - d/t NPO status continue IV Diltiazem and iv beta- pieter and resume oral when able to take oral intake - adjust IV BB dose today ASA because of h/o CAD OAC and full anticoag to be resumed when full oral intake allowed. Currently, increase enoxaparin to 60 bid Diuretics as needed and as tolerated Monitor lab closely and replace electrolytes as needed MICHELLE BREWER MD FACP [facility] Jun 13, 2021 17:35
[2021-06-13] MEDS: ENOXAPARIN 60 MG/0.6 ML (LOVENOX) SYR SC SCH (18:38)
[2021-06-13 21:17] VITALS: BP 110/45
[2021-06-13] MEDS: RT--FLUTICASONE/SALMETEROL 113-14 (AIRDUO RespiCLICK) IH SCH (22:30)
[2021-06-13] MEDS ORDERED: METOCLOPRAMIDE INJ 10 MG/2 ML (REGLAN) ONE (23:27)
[2021-06-14] MEDS: inSUlin ASPART (NovoLOG) 1 UNIT/0.01 ML (CHARGE PER UNIT) SC SCH ×4 (00:35→17:44)
[2021-06-14] MEDS: fentaNYL INJ 100 MCG/2 ML AMP IVP PRN ×5 (00:53→16:49)
[2021-06-14] MEDS: METOCLOPRAMIDE INJ 10 MG/2 ML (REGLAN) IVP PRN ×2 (02:20→08:30)
[2021-06-14] MEDS: ONDANSETRON 4 MG/2 ML (SDV) Z0FRAN IV PRN ×2 (02:20→06:25)
[2021-06-14] MEDS: NS IV 1000 ML 1,000 ML IV SCH (04:32)
[2021-06-14] MEDS: meTOprolol 5 MG/5 ML (LOPRESSOR) VIAL IV SCH ×5 (04:34→20:31)
[2021-06-14] MEDS: ENOXAPARIN 60 MG/0.6 ML (LOVENOX) SYR SC SCH ×2 (05:34→16:31)
[2021-06-14 05:55] LABS: BASOPHILS # (AUTO) 0.1 10^3/uL (0.0-0.1); BASOPHILS % (AUTO) 1 % (0-10); EOSINOPHILS # (AUTO) 0.2 10^3/uL (0.0-0.3); EOSINOPHILS % (AUTO) 1 % (0-10); HEMATOCRIT 37 % (35-52); HEMOGLOBIN 10.7 g/dL (11.5-16.0); LYMPHOCYTES # (AUTO) 0.5 10^3/uL (1.0-4.0); LYMPHOCYTES % (AUTO) 4 % (12-44); MEAN CORPUSCULAR HEMOGLOBIN 29 pg (25-34); MEAN CORPUSCULAR HGB CONC 29 g/dL (32-36); MEAN CORPUSCULAR VOLUME 99 fL (80-99); MEAN PLATELET VOLUME 11.9 fL (9.0-12.2); MONOCYTES # (AUTO) 0.9 10^3/uL (0.0-1.0); MONOCYTES % (AUTO) 7 % (0-12); NEUTROPHILS # (AUTO) 11.2 10^3/uL (1.8-7.8); NEUTROPHILS % (AUTO) 84 % (42-75); PLATELET COUNT 263 10^3/uL (130-400); WHITE BLOOD COUNT 13.3 10^3/uL (4.3-11.0)
[2021-06-14 06:08] LABS: ALBUMIN 2.9 GM/DL (3.2-4.5); POTASSIUM 3.9 MMOL/L (3.6-5.0)
[2021-06-14 06:09] LABS: CALCIUM 8.7 MG/DL (8.5-10.1)
[2021-06-14 06:10] LABS: TOTAL PROTEIN 5.6 GM/DL (6.4-8.2)
[2021-06-14 06:12] LABS: BILIRUBIN,TOTAL 0.3 MG/DL (0.1-1.0)
[2021-06-14 06:13] LABS: PHOSPHORUS 2.7 MG/DL (2.3-4.7)
[2021-06-14 06:14] LABS: CREATININE SERUM 0.75 MG/DL (0.60-1.30)
[2021-06-14 06:17] LABS: MAGNESIUM 1.7 MG/DL (1.6-2.4)
[2021-06-14 06:18] LABS: BAND NEUTROPHILS 2 %; NEUTROPHILS % (MANUAL) 90 %
[2021-06-14 06:19] LABS: EOSINOPHILS % (MANUAL) 2 %; LYMPHOCYTES % (MANUAL) 2 %; MONOCYTES % (MANUAL) 4 %; RBC MORPH NORMAL
[2021-06-14] MEDS: MAGNESIUM 1 GM/100 ML IVPB 100 ML IV SCH (06:34)
[2021-06-14] MEDS: POTASSIUM CL 10MEQ/50ML IVPB 50 ML IV SCH (06:34)
[2021-06-14] MEDS: KCL 20 MEQ TAB (K-DUR) PO SCH (06:34)
--- NOTE | 2021-06-14 07:12 | Diagnostic Imaging Report ---
REASON FOR EXAM: Nausea and vomiting. COMPARISON: 06/05/2021. TECHNIQUE: 2 views of the abdomen FINDINGS: Skin janie are seen in the right hemiabdomen. Mildly prominent loops of small bowel are seen in the abdomen which appear decreased compared to the prior exam. No unexpected radiopaque foreign bodies are seen. No acute osseous abnormalities. IMPRESSION: Interval postoperative changes with interval decrease in prominent loops of small bowel. Recommend continued follow-up, as indicated. Dictated by: Dictated on workstation # [id number]
--- NOTE | 2021-06-14 07:31 | Progress Note - Surgery ---
BRIAN VILLEDA 06/14/21 0731: Subjective Date Seen by a Provider: Jun 14, 2021 Time Seen by a Provider: 07:01 Subjective/Events-last exam Pt has been vomiting since yesterday. Started on metoclopramide last night has that has seemed to help the vomiting according to nursing. She had to be taken off of the BIPAP last night due to the vomiting. This morning she is complaining of nausea, vomiting, and abdominal pain. She is not drinking fluids due to the vomiting. Has not had any bowel movements since yesterday. But she has been having flatus. Breathing appears more labored this morning than it was yesterday. Review of Systems General: Chills, Other (fever) HEENT: No Head Aches, No Visual Changes Pulmonary: Dyspnea, Cough Cardiovascular: No: Chest Pain, Palpitations Gastrointestinal: Nausea, Vomiting, Abdominal Pain Musculoskeletal: foot pain (b/l); No: back pain Neurological: Numbness (both feet) Objective Exam Vital Signs Date Time Temp Pulse Resp B/P (MAP) Pulse Ox O2 Delivery O2 Flow Rate FiO2 06/14/21 06:00 93 22 141/101 94 High Flow N/C 4.00 06/14/21 05:00 90 23 133/74 95 High Flow N/C 4.00 06/14/21 04:00 37.0 06/14/21 04:00 101 22 144/93 96 High Flow N/C 4.00 06/14/21 04:00 90 NIV Bilevel 06/14/21 03:00 85 17 143/105 90 High Flow N/C 4.00 06/14/21 02:00 83 15 139/119 93 High Flow N/C 4.00 06/14/21 01:00 89 21 154/54 93 High Flow N/C 4.00 06/14/21 01:00 89 06/14/21 00:00 105 21 127/84 94 High Flow N/C 4.00 06/13/21 23:59 90 NIV Bilevel 28 06/13/21 23:40 94 Nasal Cannula 4.00 06/13/21 23:00 92 19 127/93 94 NIV Bilevel 25.00 06/13/21 22:00 63 24 130/72 95 NIV Bilevel 25.00 06/13/21 21:17 63 20 87 28.00 06/13/21 21:16 NIV Bilevel 25.00 06/13/21 21:00 75 19 110/45 91 High Flow N/C 4.00 06/13/21 20:00 100 19 132/90 96 High Flow N/C 4.00 06/13/21 20:00 90 Nasal Cannula 4.00 06/13/21 19:12 36.9 06/13/21 19:00 101 06/13/21 19:00 101 25 155/89 94 High Flow N/C 4.00 06/13/21 18:00 98 22 138/68 93 High Flow N/C 4.00 06/13/21 17:00 80 22 135/54 93 High Flow N/C 4.00 06/13/21 16:20 90 Nasal Cannula 4.00 06/13/21 16:00 92 23 139/56 95 High Flow N/C 4.00 06/13/21 15:58 36.7 06/13/21 15:00 117 23 151/87 97 High Flow N/C 4.00 06/13/21 14:00 90 23 136/59 94 High Flow N/C 4.00 06/13/21 13:09 78 06/13/21 13:00 89 23 133/84 94 High Flow N/C 4.00 06/13/21 12:00 108 20 118/109 96 High Flow N/C 4.00 06/13/21 11:52 90 Nasal Cannula 4.00 06/13/21 11:15 96 High Flow N/C 3.00 06/13/21 11:04 36.9 06/13/21 11:00 103 95 132/75 95 High Flow N/C 4.00 06/13/21 10:00 103 48 133/63 96 NIV Bilevel 28.00 06/13/21 09:15 105 26 112/88 96 High Flow N/C 8.00 06/13/21 08:00 90 Nasal Cannula 4.00 06/13/21 08:00 122 26 161/89 92 High Flow N/C 8.00 I & O 06/14/21 07:00 Intake Total 1750 ml Output Total 2225 ml Balance -475 ml Capillary Refill : Less Than 3 SecondsLess Than 3 Seconds General Appearance: Chronically ill, Mild Distress, Obese HEENT: PERRL/EOMI, Normal ENT Inspection Neck: Normal Inspection, Non Tender, Supple, Other (central line in place) Respiratory: Chest Non Tender, Wheezing (expiratory wheezes b/l worse on right) Cardiovascular: No JVD, Irregularly Irregular, Tachycardia Gastrointestinal: soft, distended (Minimal); No guarding; tenderness (Incisional pain), other (Incisions intact and pink; no drainage) Extremity: Normal Capillary Refill, Normal Inspection, Normal Range of Motion Neurologic/Psychiatric: Alert, Normal Mood/Affect Skin: Normal Color, Warm/Dry Lymphatic: No Adenopathy Results Lab Laboratory Tests 06/13/21 09:28: Blood Gas Puncture Site UNK, Blood Gas Patient Temperature 36.5, Arterial Blood pH 7.35L, Arterial Blood Partial Pressure CO2 50H, Arterial Blood Partial Pressure O2 73L, Arterial Blood HCO3 27, Arterial Blood Total CO2 28.5, Arterial Blood Oxygen Saturation 95, Arterial Blood Base Excess 1.7, Eldon Test UNK, Blood Gas Ventilator Setting NO, Blood Gas Inspired Oxygen 4 L 06/13/21 10:56: Glucometer 223H 06/13/21 17:05: Glucometer 211H 06/14/21 00:00: Glucometer 138H 06/14/21 05:47: White Blood Count 13.3H, Red Blood Count 3.71L, Hemoglobin 10.7L, Hematocrit 37, Mean Corpuscular Volume 99, Mean Corpuscular Hemoglobin 29, Mean Corpuscular Hemoglobin Concent 29L, Red Cell Distribution Width 15.0H, Platelet Count 263, Mean Platelet Volume 11.9, Immature Granulocyte % (Auto) 4, Neutrophils (%) (Auto) 84H, Lymphocytes (%) (Auto) 4L, Monocytes (%) (Auto) 7, Eosinophils (%) (Auto) 1, Basophils (%) (Auto) 1, Neutrophils # (Auto) 11.2H, Lymphocytes # (Auto) 0.5L, Monocytes # (Auto) 0.9, Eosinophils # (Auto) 0.2, Basophils # (Auto) 0.1, Immature Granulocyte # (Auto) 0.5H, Neutrophils % (Manual) 90, Lymphocytes % (Manual) 2, Monocytes % (Manual) 4, Eosinophils % (Manual) 2, Band Neutrophils 2, Blood Morphology Comment NORMAL, Sodium Level 143, Potassium Level 3.9, Chloride Level 105, Carbon Dioxide Level 24, Anion Gap 14, Blood Urea Nitrogen 20H, Creatinine 0.75, Estimat Glomerular Filtration Rate 78, BUN/Creatinine Ratio 27, Glucose Level 231H, Calcium Level 8.7, Corrected Calcium 9.6, Phosphorus Level 2.7, Magnesium Level 1.7, Total Bilirubin 0.3, Aspartate Amino Transf (AST/SGOT) 15, Alanine Aminotransferase (ALT/SGPT) 18, Alkaline Phosphatase 74, Total Protein 5.6L, Albumin 2.9L, Beta-Hydroxybutyrate (Chem panel) 2.35H Microbiology 06/06/21 Blood Culture - Final, Complete No growth 06/04/21 MRSA Screen - Final, Complete MRSA not isolated Assessment/Plan Assessment/Plan Assessment/Plan S/P exploratory laparotomy with lysis of adhesions, release of small bowel obstruction, and incidental appendectomy AFib NSTEMI Neuropathy (bilateral feet) Diabetes mellitus NG tube to be placed again this morning HTN DVT prophylaxis(Lovenox at 60mg) Poor motivation. Currently on O2 via NC during the day and BIPAP at night. Has finished azotreonam and metronidazole Continue Protonix QD and Zofran PRN. Metoclopramide PRN added last night NG tube to be placed this morning due to vomiting. Pt has been having episodes of flatus. Return to NPO. Continue to monitor bowel function. KUB XR done this AM, according to radiology, showed interval postoperative changes with interval decrease in prominent loops of small bowel. Pt needs to continue getting up out of bed and sitting in chair during the day IVFs; drake for accurate i/o Hgb Stable Monitor labs and vitals Followed by cardiology DOUG GLASS DO 06/14/21 1239: Subjective Subjective/Events-last exam Having nausea and emesis overnight. Having some abdominal pain. Patient minimal interaction. Breathing appears to be more uncomfortable. No family at bedside currently. Objective Exam General Appearance: No Apparent Distress, Chronically ill, Obese HEENT: PERRL/EOMI, Normal ENT Inspection Neck: Full Range of Motion, Normal Inspection, Non Tender, Supple, Other (central line in place) Respiratory: Chest Non Tender, Wheezing (expiratory wheezes b/l worse on right, slightly labored) Gastrointestinal: distended (Minimal), tenderness (Incisional pain), other (Incisions intact and pink; no drainage) Extremity: Normal Inspection, Normal Range of Motion Neurologic/Psychiatric: Alert; No Oriented x3 Skin: Normal Color, Warm/Dry Lymphatic: No Adenopathy Assessment/Plan Assessment/Plan Assessment/Plan S/P exploratory laparotomy with lysis of adhesions, release of small bowel obstruction, and incidental appendectomy AFib NSTEMI Neuropathy (bilateral feet) Diabetes mellitus NG tube to be placed again this morning HTN DVT prophylaxis(Lovenox at 60mg) Poor motivation. Currently on O2 via NC during the day and BIPAP at night. Has finished azotreonam and metronidazole Continue Protonix QD and Zofran PRN. Metoclopramide PRN added last night NG tube to be placed this morning due to vomiting. Pt has been having episodes of flatus. Return to NPO. Continue to monitor bowel function. KUB XR done this AM, according to radiology, showed interval postoperative changes with interval decrease in prominent loops of small bowel. Pt needs to continue getting up out of bed and sitting in chair during the day IVFs; drake for accurate i/o Hgb Stable Monitor labs and vitals Followed by cardiology Patient with poor motivation, feel that overall prognosis poor. Encouraged to try to increase any activity and use IS/Accapella. Supervisory-Addendum Brief Verification & Attestation Participated in pt care: history, MDM, physical Personally performed: exam, history, MDM, supervision of care Care discussed with: Medical Student Procedures: n/a Results interpretation: Verified all documentation Verification and Attestation of Medical Student E/M Service A medical student performed and documented this service in my presence. I reviewed and verified all information documented by the medical student and made modifications to such information, when appropriate. I personally performed the physical exam and medical decision making. Doug Glass, Jun 14, 2021,12:39 BRIAN VILLEDA Jun 14, 2021 07:31 DOUG GLASS DO Jun 14, 2021 12:39
[2021-06-14] MEDS: RT-ALBUTEROL/IPRATROPIUM 3 ML (DUONEB) VIAL INH SCH ×5 (07:32→21:58)
[2021-06-14] MEDS: RT--FLUTICASONE/SALMETEROL 113-14 (AIRDUO RespiCLICK) IH SCH ×2 (07:32→21:01)
--- NOTE | 2021-06-14 08:05 | Physical Therapy Progress Note ---
Therapy Progress Note Patient on hold per nursing staff due to decline in medical status. PT will attempt to see patient in a.m. LUZ MARIA ONEIL PT Jun 14, 2021 08:05
[2021-06-14] MEDS: PANTOPRAZOLE 40 MG (PROTONIX) VIAL IV SCH (08:29)
[2021-06-14] MEDS: DIGOXIN 0.25 MG/ML (LANOXIN) 2 ML AMP IV SCH (08:29)
[2021-06-14] MEDS: ASPIRIN 81 MG CHEW (CHILDREN'S ASA) PO SCH (08:29)
--- NOTE | 2021-06-14 08:44 | Tele-ICU Progress Note ---
Subjective Date Seen by a Provider: Jun 14, 2021 Time Seen by a Provider: 08:43 Subjective/Events-last exam Patient last night apparently started vomiting and became short of breath. BiPAP was taken off and put on Vapotherm. This a.m. I have made a video visit and discussed with the RT as well as the CRUISE STAFF MEMBER. As patient work of breathing is increased today have ordered an ABG which showed acute respiratory acidosis with PCO2 about 270. Started on a BiPAP ventilation with which she is resting somewhat comfortably. I have ordered a chest x-ray which showed bilateral extensive infiltrate with pleural effusions suggestive of fluid overload. Will order IV Lasix. An NG tube has been inserted and put on suction she readily pulled out over 600 cc of gastric output. KUB showed dilatation of the stomach as well as small intestines suggestive of a ileus Review of Systems ROS PER RN Sepsis Event Evaluation Height, Weight, BMI Height: 5'63.00" Weight: 219lbs. 1.0oz. 99.404215rr; 37.00 BMI Method: Exam Exam Patient acknowledged, consented, and participated in this virtual visit which was conducted using real time audio/video Vital Signs Date Time Temp Pulse Resp B/P (MAP) Pulse Ox O2 Delivery O2 Flow Rate FiO2 06/14/21 08:00 96 15 128/63 97 Vapotherm 30.00 80.00 06/14/21 07:48 97 Vapotherm 30.00 80 06/14/21 07:42 97 Vapotherm 40.00 100 06/14/21 07:26 36.1 06/14/21 07:00 85 17 142/79 93 High Flow N/C 4.00 06/14/21 07:00 95 06/14/21 06:00 93 22 141/101 94 High Flow N/C 4.00 06/14/21 05:00 90 23 133/74 95 High Flow N/C 4.00 06/14/21 04:00 37.0 06/14/21 04:00 101 22 144/93 96 High Flow N/C 4.00 06/14/21 04:00 90 NIV Bilevel 28 06/14/21 03:00 85 17 143/105 90 High Flow N/C 4.00 06/14/21 02:00 83 15 139/119 93 High Flow N/C 4.00 06/14/21 01:00 89 21 154/54 93 High Flow N/C 4.00 06/14/21 01:00 89 06/14/21 00:00 105 21 127/84 94 High Flow N/C 4.00 06/13/21 23:59 90 NIV Bilevel 28 06/13/21 23:40 94 Nasal Cannula 4.00 06/13/21 23:00 92 19 127/93 94 NIV Bilevel 25.00 06/13/21 22:00 63 24 130/72 95 NIV Bilevel 25.00 06/13/21 21:17 63 20 87 28.00 06/13/21 21:16 NIV Bilevel 25.00 06/13/21 21:00 75 19 110/45 91 High Flow N/C 4.00 06/13/21 20:00 100 19 132/90 96 High Flow N/C 4.00 06/13/21 20:00 90 Nasal Cannula 4.00 06/13/21 19:12 36.9 06/13/21 19:00 101 06/13/21 19:00 101 25 155/89 94 High Flow N/C 4.00 06/13/21 18:00 98 22 138/68 93 High Flow N/C 4.00 06/13/21 17:00 80 22 135/54 93 High Flow N/C 4.00 06/13/21 16:20 90 Nasal Cannula 4.00 06/13/21 16:00 92 23 139/56 95 High Flow N/C 4.00 06/13/21 15:58 36.7 06/13/21 15:00 117 23 151/87 97 High Flow N/C 4.00 06/13/21 14:00 90 23 136/59 94 High Flow N/C 4.00 06/13/21 13:09 78 06/13/21 13:00 89 23 133/84 94 High Flow N/C 4.00 06/13/21 12:00 108 20 118/109 96 High Flow N/C 4.00 06/13/21 11:52 90 Nasal Cannula 4.00 06/13/21 11:15 96 High Flow N/C 3.00 06/13/21 11:04 36.9 06/13/21 11:00 103 95 132/75 95 High Flow N/C 4.00 06/13/21 10:00 103 48 133/63 96 NIV Bilevel 28.00 06/13/21 09:15 105 26 112/88 96 High Flow N/C 8.00 I & O 06/14/21 07:00 Intake Total 1750 ml Output Total 2225 ml Balance -475 ml Height & Weight Height: 5'63.00" Weight: 219lbs. 1.0oz. 99.609568ie; 37.00 BMI Method: General Appearance: Chronically ill, Mild Distress, Obese HEENT: PERRL/EOMI, Normal ENT Inspection Neck: Normal Inspection, Non Tender, Supple, Other (central line in place) Respiratory: Chest Non Tender, Wheezing (expiratory wheezes b/l worse on right) Cardiovascular: No JVD, Irregularly Irregular, Tachycardia Capillary Refill: Less Than 3 Seconds Gastrointestinal: soft, distended (Minimal); No guarding; tenderness (Incision al pain), other (Incisions intact and pink; no drainage) Extremity: Normal Capillary Refill, Normal Inspection, Normal Range of Motion Neurologic/Psychiatric: Alert, Normal Mood/Affect Skin: Normal Color, Warm/Dry Lymphatic: No Adenopathy Results Lab Laboratory Tests 06/13/21 05:20 06/14/21 05:47 Assessment/Plan Assessment/Plan 1. Postoperative RESPIRATORY FAILURE due to fluid overload 2. Small bowel obstruction status post exploratory laparotomy and lysis of adhesions 3. Diabetic ketoacidosis improved and on insulin s/c 4. Hyponatremia improved 5. Non-STEMI, cardiology on the case. 6. Atrial fibrillation, cardiology on the case. 7. COPD clinically stable. 8. Post op intestinal ileus Recommendations 1. Start BIPAP ventilation 2. IVF to kvo and start iv lasix 3. Atrial fibrillation management per cardiology. will consider iv dig if c ardizem alone does not help 4. Diabetes management per primary care. 5. Non-STEMI management per cardiology. 6. DVT prophylaxis and ulcer prophylaxis. 7. Postoperative surgical management for general surgery. 8 NGT to suction Reviewed with agricultural research engineerchange manager: Critically Ill Patient Time spent with patient (mins): 35 JIMMY REILLY MD Jun 14, 2021 08:44
[2021-06-14 08:52] LABS: ABG BASE EXCESS 3.8 MMOL/L (-2.5-2.5); ABG OXYGEN SATURATION 99 % (94-100); ABG PO2 152 MMHG (79-93); ABG TCO2 32.5 MMOL/L (21.0-31.0)
[2021-06-14] MEDS: dilTIAZem DRIP PRE-MIX 125 ML IV SCH (08:54)
[2021-06-14 08:55] LABS: ALLENS TEST POSITIVE; INSPIRED O2 40; VENTILATOR NO
[2021-06-14 08:57] LABS: PATIENT TEMP 37.1
[2021-06-14 08:59] LABS: ABG PCO2 71 MMHG (35-45); ABG PH 7.26 (7.37-7.43)
[2021-06-14 09:17] VITALS: BP 115/63
--- NOTE | 2021-06-14 09:27 | Diagnostic Imaging Report ---
Portable erect AP chest at 8:58 AM INDICATION: NG tube placement, respiratory distress The prior exam of 06/08/2021 noted an enteric tube in place. The tube appeared to cross the diaphragm but the tip was not visualized. On this exam, the enteric tube is again evident. The distal portion of the tube is seen overlying the left upper quadrant in the region of the gastric body. The tip itself however is not visualized. If further study is desired, an abdomen exam would be recommended. The appearance of the chest itself is somewhat worse as there does appear to be greater central pulmonary congestion. A new thick band of atelectasis/infiltrate has also developed in the right infrahilar region. There continues to be obscuration of both lung bases by atelectasis/infiltrate and fluid as well. The central venous catheter on the right seen previously is again evident and the tip continues to overlie the midportion of the superior vena cava. IMPRESSION: 1. The enteric tube seen previously has been advanced and the tip now overlies the left upper quadrant. I suspect it is in the region of the gastric body. Recommendations as above. 2. The appearance of the chest has worsened as there is greater central pulmonary congestion. Dictated by: Dictated on workstation # [id number]
--- NOTE | 2021-06-14 09:27 | Diagnostic Imaging Report ---
INDICATION: NG tube placement. TIME OF EXAM: 9:03 AM Portable view of the abdomen was obtained. NG tube passes below the diaphragm. The tip of the NG tube is directed inferiorly and is located in the region of the gastric body. IMPRESSION: NG tube placement, as described. Dictated by: Dictated on workstation # [id number]
--- NOTE | 2021-06-14 09:35 | Progress Note ---
Objective Exam Last Set of Vital Signs Vital Signs Date Time Temp Pulse Resp B/P (MAP) Pulse Ox O2 Delivery O2 Flow Rate FiO2 06/14/21 09:33 NIV Bilevel 40.00 06/14/21 09:17 88 18 95 06/14/21 09:00 115/63 06/14/21 07:48 80 06/14/21 07:26 36.1 Capillary Refill : Less Than 3 SecondsLess Than 3 Seconds I&O Intake and Output 06/14/21 00:00 Intake Total 1650 ml Output Total 2125 ml Balance -475 ml Intake Oral 550 ml IV Total 1100 ml Output Urine Total 2125 ml Results/Procedures Lab Laboratory Tests 06/13/21 10:56: Glucometer 223H 06/13/21 17:05: Glucometer 211H 06/14/21 00:00: Glucometer 138H 06/14/21 05:47: White Blood Count 13.3H, Red Blood Count 3.71L, Hemoglobin 10.7L, Hematocrit 37, Mean Corpuscular Volume 99, Mean Corpuscular Hemoglobin 29, Mean Corpuscular Hemoglobin Concent 29L, Red Cell Distribution Width 15.0H, Platelet Count 263, Mean Platelet Volume 11.9, Immature Granulocyte % (Auto) 4, Neutrophils (%) (Auto) 84H, Lymphocytes (%) (Auto) 4L, Monocytes (%) (Auto) 7, Eosinophils (%) (Auto) 1, Basophils (%) (Auto) 1, Neutrophils # (Auto) 11.2H, Lymphocytes # (Auto) 0.5L, Monocytes # (Auto) 0.9, Eosinophils # (Auto) 0.2, Basophils # (Auto) 0.1, Immature Granulocyte # (Auto) 0.5H, Neutrophils % (Manual) 90, Lymphocytes % (Manual) 2, Monocytes % (Manual) 4, Eosinophils % (Manual) 2, Band Neutrophils 2, Blood Morphology Comment NORMAL, Sodium Level 143, Potassium Level 3.9, Chloride Level 105, Carbon Dioxide Level 24, Anion Gap 14, Blood Urea Nitrogen 20H, Creatinine 0.75, Estimat Glomerular Filtration Rate 78, BUN/Creatinine Ratio 27, Glucose Level 231H, Calcium Level 8.7, Corrected Calcium 9.6, Phosphorus Level 2.7, Magnesium Level 1.7, Total Bilirubin 0.3, Aspartate Amino Transf (AST/SGOT) 15, Alanine Aminotransferase (ALT/SGPT) 18, Alkaline Phosphatase 74, Total Protein 5.6L, Albumin 2.9L, Beta-Hydroxybutyrate (Chem panel) 2.35H 06/14/21 08:50: Blood Gas Puncture Site RIGHT RADIAL, Blood Gas Patient Temperature 37.1, Arterial Blood pH 7.26*L, Arterial Blood Partial Pressure CO2 71*H, Arterial Blood Partial Pressure O2 152H, Arterial Blood HCO3 30H, Arterial Blood Total CO2 32.5H, Arterial Blood Oxygen Saturation 99, Arterial Blood Base Excess 3.8H, Eldon Test POSITIVE, Blood Gas Ventilator Setting NO, Blood Gas Inspired Oxygen 40 Microbiology 06/06/21 Blood Culture - Final, Complete No growth 06/04/21 MRSA Screen - Final, Complete MRSA not isolated Radiology NAME: BERNARDO BUCKLEY [facility] REC#: [id number] PT STATUS: REG ER : 1935 PHYSICIAN: EDI ONEAL MD ADMIT DATE: 06/04/21/ER FS Signed Date of Exam:06/04/21 CT ABDOMEN/PELVIS W PROCEDURE: CT abdomen and pelvis with contrast. TECHNIQUE: Multiple contiguous axial images were obtained through the abdomen and pelvis after administration of intravenous contrast. Auto Exposure Controls were utilized during the CT exam to meet ALARA standards for radiation dose reduction. All CT scans use one or more of the following dose optimizing techniques: automated exposure control, MA and/or KvP adjustment based on patient size and exam type or iterative reconstruction. INDICATION: Abdominal pain. COMPARISON: No prior studies are available for comparison. FINDINGS: Lung bases are clear. There is generalized low density throughout the liver, consistent with hepatic steatosis. No discrete liver mass is detected. Gallbladder is surgically absent. No biliary ductal dilatation is seen. Pancreas and spleen are unremarkable. No adrenal mass is detected. Right kidney contains a small cortical low-attenuation lesion in the upper pole measuring 16 mm and suggestive of a cyst. No hydronephrosis noted. Aorta is heavily calcified but nonaneurysmal. There appear to be some dilated and fluid-filled small bowel loops in the central abdomen. There is significant laxity to the anterior abdominal wall with diastasis of the rectus musculature. No definite focal abdominal wall defect is seen to suggest a ventral hernia. No bowel wall thickening is seen. There are normal-caliber small bowel loops distally and possibility of small bowel obstruction cannot be excluded. There is no free air. There is no free fluid or fluid collection. Bladder is decompressed by Grant catheter. Bony structures demonstrate compression deformity of T11 vertebral body which is near vertebra plana. There is also probable superior endplate fracture of L2. These could be chronic. There is no retropulsion. IMPRESSION: 1. Dilated small bowel loops with transition distally, concerning for small bowel obstruction. Small bowel study would be useful for further evaluation. No free air, free fluid or fluid collection is detected. 2. Probable chronic compression deformities involving T11 and L2. Dictated by: Dictated on workstation # [id number] Dict: 06/04/211912 Trans: 06/04/211938 [facility] [id number] Interpreted by: LUIS ANTONIO ARCHULETA MD Electronically signed by: LUIS ANTONIO ARCHULETA MD 06/04/211938 NAME: BERNARDO BUCKLEY [facility] REC#: [id number] PT STATUS: ADM IN : 1935 PHYSICIAN: MARK PAT DO ADMIT DATE: 06/04/21/ICU Signed Date of Exam:06/04/21 CHEST 1 VIEW, AP/PA ONLY Portable chest COMPARISON to prior study from earlier in the same day. INDICATION: Central line placement. FINDINGS: A right internal jugular central line has been placed. This terminates within the distal SVC. There are no findings of a pneumothorax. Pulmonary interstitial prominence and heart size are unchanged from prior examination. There may be a trace left-sided effusion. There is no new alveolar consolidation IMPRESSION: 1. Interval placement of a new right internal jugular central line without pneumothorax. 2. Stable prominence of the pulmonary interstitial markings. 3. Possible trace left effusion. Dictated by: Dictated on workstation # [id number] Dict: 06/04/212217 Trans: 06/04/212249 [facility] [id number] Interpreted by: JOSE D BUCKNER MD Electronically signed by: JOSE D BUCKNER MD 06/04/212249 Assessment/Plan Assessment/Plan (1) Small bowel obstruction Status: Acute Assessment & Plan: s/p exploratory laparotomy with lysis of adhesions, release of small bowel obstruction, and incidental appendectomy on 06/06, appreciate Surgery recommendations. NG remains in place, positive BM this morning. 06/12 On aztreonam and metronidazole, day 5, hopeful to d/c NG tube today if able to get out of bed. 06/13- final day of aztreonam/metronidazole. NG removed yesterday, continue to work on increasing activity. (2) DKA, type 2 Status: Resolved Assessment & Plan: s/p insulin drip, has positive beta hydroxybutyrate, but AG and bicarb remain normal. Sliding scale insulin. 3 CO2 and AG slightly abnormal, but repeat ABG with normal bicarb and mildly elevated pCO2 more consistent with respiratory acidosis. Qualifiers: Qualified Codes: E11.10 - Type 2 diabetes mellitus with ketoacidosis without coma (3) NSTEMI (non-ST elevated myocardial infarction) Status: Acute Assessment & Plan: Conservative management with medications, appreciate Cardiology recommendations. (4) Atrial fibrillation Status: Chronic Assessment & Plan: Requiring diltiazem drip, appreciate Cardiology recommendations. Qualifiers: Qualified Codes: I48.20 - Chronic atrial fibrillation, unspecified (5) CAD (coronary artery disease) Status: Chronic Assessment & Plan: Appreciate Cardiology recommendations Echo on 06/06/21: LVEF 40-45%, with anteroseptal hypokinesis Qualifiers: (6) Essential (primary) hypertension Status: Chronic (7) Respiratory acidosis Status: Resolved Assessment & Plan: 06/10 pH today remains 7.3, but metabolic acidosis is resolved- AG closed and bicarb normal, now with elevated pH, but good mental status, monitor and recheck pH later today 06/11- pH and pCO2 worsened on repeat yesterday later in day, on bipap overnight with improvement and mental status improved today as well. /- used bipap overnight and clinical status remains good on supplemental oxygen this morning / continue nightly bipap (8) COPD (chronic obstructive pulmonary disease) Status: Chronic Assessment & Plan: Duoneb q4, not doing well with IS, switching to acapella. Resume home fluticasone/vilanterol. (9) Diabetes mellitus, type 2 Status: Chronic Assessment & Plan: / glucose 156-196 last 24 hours, continue sliding scale, holding home glimeperide, degludec and semaglutide Qualifiers: Qualified Codes: E11.65 - Type 2 diabetes mellitus with hyperglycemia; Z79.4 - senior care (current) use of insulin (10) DVT prophylaxis Status: Acute Assessment & Plan: Enoxaparin KENNA DAY MD Jun 14, 2021 09:35
[2021-06-14] MEDS ORDERED: FUROSEMIDE 40 MG/4 ML INJ (LASIX) IVP NR (11:30)
--- NOTE | 2021-06-14 12:05 | Progress Note ---
Subjective Subjective/Events-last exam Had nausea and vomited overnight, so couldn't use bipap, NG has been replaced and she is back on bipap this am due to worsened hypercapnea without bipap last night. Objective Exam Last Set of Vital Signs Vital Signs Date Time Temp Pulse Resp B/P (MAP) Pulse Ox O2 Delivery O2 Flow Rate FiO2 06/14/21 10:00 77 15 114/59 95 NIV Bilevel 40.00 06/14/21 07:48 80 06/14/21 07:26 36.1 Capillary Refill : Less Than 3 SecondsLess Than 3 Seconds I&O Intake and Output 06/14/21 00:00 Intake Total 1650 ml Output Total 2125 ml Balance -475 ml Intake Oral 550 ml IV Total 1100 ml Output Urine Total 2125 ml General: Alert, Mild Distress Lungs: Other (ronchi) Heart: Regular Rate Abdomen: Soft, Other (NG in place with green drainage) Results/Procedures Lab Laboratory Tests 06/13/21 10:56: Glucometer 223H 06/13/21 17:05: Glucometer 211H 06/14/21 00:00: Glucometer 138H 06/14/21 05:47: White Blood Count 13.3H, Red Blood Count 3.71L, Hemoglobin 10.7L, Hematocrit 37, Mean Corpuscular Volume 99, Mean Corpuscular Hemoglobin 29, Mean Corpuscular Hemoglobin Concent 29L, Red Cell Distribution Width 15.0H, Platelet Count 263, Mean Platelet Volume 11.9, Immature Granulocyte % (Auto) 4, Neutrophils (%) (Auto) 84H, Lymphocytes (%) (Auto) 4L, Monocytes (%) (Auto) 7, Eosinophils (%) (Auto) 1, Basophils (%) (Auto) 1, Neutrophils # (Auto) 11.2H, Lymphocytes # (Auto) 0.5L, Monocytes # (Auto) 0.9, Eosinophils # (Auto) 0.2, Basophils # (Auto) 0.1, Immature Granulocyte # (Auto) 0.5H, Neutrophils % (Manual) 90, Lymphocytes % (Manual) 2, Monocytes % (Manual) 4, Eosinophils % (Manual) 2, Band Neutrophils 2, Blood Morphology Comment NORMAL, Sodium Level 143, Potassium Le rajeev 3.9, Chloride Level 105, Carbon Dioxide Level 24, Anion Gap 14, Blood Urea Nitrogen 20H, Creatinine 0.75, Estimat Glomerular Filtration Rate 78, BUN/Creatinine Ratio 27, Glucose Level 231H, Calcium Level 8.7, Corrected Calcium 9.6, Phosphorus Level 2.7, Magnesium Level 1.7, Total Bilirubin 0.3, Aspartate Amino Transf (AST/SGOT) 15, Alanine Aminotransferase (ALT/SGPT) 18, Alkaline Phosphatase 74, Total Protein 5.6L, Albumin 2.9L, Beta-Hydroxybutyrate (Chem panel) 2.35H 06/14/21 08:50: Blood Gas Puncture Site RIGHT RADIAL, Blood Gas Patient Temperature 37.1, Arterial Blood pH 7.26*L, Arterial Blood Partial Pressure CO2 71*H, Arterial Blood Partial Pressure O2 152H, Arterial Blood HCO3 30H, Arterial Blood Total CO2 32.5H, Arterial Blood Oxygen Saturation 99, Arterial Blood Base Excess 3.8H, Eldon Test POSITIVE, Blood Gas Ventilator Setting NO, Blood Gas Inspired Oxygen 40 Microbiology 06/06/21 Blood Culture - Final, Complete No growth 06/04/21 MRSA Screen - Final, Complete MRSA not isolated Radiology NAME: BERNARDO BUCKLEY [facility] REC#: [id number] PT STATUS: REG ER : 1935 PHYSICIAN: EDI ONEAL MD ADMIT DATE: 06/04/21/ER FS Signed Date of Exam:06/04/21 CT ABDOMEN/PELVIS W PROCEDURE: CT abdomen and pelvis with contrast. TECHNIQUE: Multiple contiguous axial images were obtained through the abdomen and pelvis after administration of intravenous contrast. Auto Exposure Controls were utilized during the CT exam to meet ALARA standards for radiation dose reduction. All CT scans use one or more of the following dose optimizing techniques: automated exposure control, MA and/or KvP adjustment based on patient size and exam type or iterative reconstruction. INDICATION: Abdominal pain. COMPARISON: No prior studies are available for comparison. FINDINGS: Lung bases are clear. There is generalized low density throughout the liver, consistent with hepatic steatosis. No discrete liver mass is detected. Gallbladder is surgically absent. No biliary ductal dilatation is seen. Pancreas and spleen are unremarkable. No adrenal mass is detected. Right kidney contains a small cortical low-attenuation lesion in the upper pole measuring 16 mm and suggestive of a cyst. No hydronephrosis noted. Aorta is heavily calcified but nonaneurysmal. There appear to be some dilated and fluid-filled small bowel loops in the central abdomen. There is significant laxity to the anterior abdominal wall with diastasis of the rectus musculature. No definite focal abdominal wall defect is seen to suggest a ventral hernia. No bowel wall thickening is seen. There are normal-caliber small bowel loops distally and possibility of small bowel obstruction cannot be excluded. There is no free air. There is no free fluid or fluid collection. Bladder is decompressed by Grant catheter. Bony structures demonstrate compression deformity of T11 vertebral body which is near vertebra plana. There is also probable superior endplate fracture of L2. These could be chronic. There is no retropulsion. IMPRESSION: 1. Dilated small bowel loops with transition distally, concerning for small bowel obstruction. Small bowel study would be useful for further evaluation. No free air, free fluid or fluid collection is detected. 2. Probable chronic compression deformities involving T11 and L2. Dictated by: Dictated on workstation # [id number] Dict: 06/04/211912 Trans: 06/04/211938 [facility] [id number] Interpreted by: LUIS ANTONIO ARCHULETA MD Electronically signed by: LUIS ANTONIO ARCHULETA MD 06/04/211938 NAME: BERNARDO BUCKLEY [facility] REC#: [id number] PT STATUS: ADM IN : 1935 PHYSICIAN: MARK PAT DO ADMIT DATE: 06/04/21/ICU Signed Date of Exam:06/04/21 CHEST 1 VIEW, AP/PA ONLY Portable chest COMPARISON to prior study from earlier in the same day. INDICATION: Central line placement. FINDINGS: A right internal jugular central line has been placed. This terminates within the distal SVC. There are no findings of a pneumothorax. Pulmonary interstitial prominence and heart size are unchanged from prior examination. There may be a trace left-sided effusion. There is no new alveolar consolidation IMPRESSION: 1. Interval placement of a new right internal jugular central line without pneumothorax. 2. Stable prominence of the pulmonary interstitial markings. 3. Possible trace left effusion. Dictated by: Dictated on workstation # [id number] Dict: 06/04/212217 Trans: 06/04/212249 [facility] [id number] Interpreted by: JOSE D BUCKNER MD Electronically signed by: JOSE D BUCKNER MD 06/04/21 4930 Assessment/Plan Assessment/Plan (1) Small bowel obstruction Status: Acute Assessment & Plan: s/p exploratory laparotomy with lysis of adhesions, release of small bowel obstruction, and incidental appendectomy on 06/06, appreciate Surgery recommendations. NG remains in place, positive BM this morning. 06/12 On aztreonam and metronidazole, day 5, hopeful to d/c NG tube today if able to get out of bed. 06/13- final day of aztreonam/metronidazole. NG removed yesterday, continue to work on increasing activity. 06/14- had recurrent nausea/vomiting, NG replaced. (2) DKA, type 2 Status: Resolved Assessment & Plan: s/p insulin drip, has positive beta hydroxybutyrate, but AG and bicarb remain normal. Sliding scale insulin. 06/13 CO2 and AG slightly abnormal, but repeat ABG with normal bicarb and mildly elevated pCO2 more consistent with respiratory acidosis. Qualifiers: Qualified Codes: E11.10 - Type 2 diabetes mellitus with ketoacidosis without coma (3) NSTEMI (non-ST elevated myocardial infarction) Status: Acute Assessment & Plan: Conservative management with medications, appreciate Cardiology recommendations. (4) Atrial fibrillation Status: Chronic Assessment & Plan: Requiring diltiazem drip, appreciate Cardiology recommendations. Qualifiers: Qualified Codes: I48.20 - Chronic atrial fibrillation, unspecified (5) CAD (coronary artery disease) Status: Chronic Assessment & Plan: Appreciate Cardiology recommendations Echo on 06/06/21: LVEF 40-45%, with anteroseptal hypokinesis Qualifiers: (6) Essential (primary) hypertension Status: Chronic (7) Respiratory acidosis Status: Resolved Assessment & Plan: 06/10 pH today remains 7.3, but metabolic acidosis is resolved- AG closed and bicarb normal, now with elevated pH, but good mental status, monitor and recheck pH later today 06/11- pH and pCO2 worsened on repeat yesterday later in day, on bipap overnight with improvement and mental status improved today as well. /2- used bipap overnight and clinical status remains good on supplemental oxygen this morning 3/3 continue nightly bipap (8) COPD (chronic obstructive pulmonary disease) Status: Chronic Assessment & Plan: Duoneb q4, not doing well with IS, switching to acapella. Resume home fluticasone/vilanterol. (9) Diabetes mellitus, type 2 Status: Chronic Assessment & Plan: 3/4 glucose 100s-230s last 24 hours, continue sliding scale, holding home glimeperide, degludec and semaglutide Qualifiers: Qualified Codes: E11.65 - Type 2 diabetes mellitus with hyperglycemia; Z79.4 - retirement (current) use of insulin (10) DVT prophylaxis Status: Acute Assessment & Plan: Enoxaparin KENNA DAY MD Jun 14, 2021 12:05
--- NOTE | 2021-06-14 12:36 | Diagnostic Imaging Report ---
EXAMINATION: Chest 1 view HISTORY: Line placement. COMPARISON: 06/14/2021. FINDINGS: There has been interval placement of a right-sided PICC line with the tip projecting over the atriocaval junction. Lung findings are otherwise stable. Medical support lines and tubes are otherwise stable. No pneumothorax. IMPRESSION: 1. Interval placement of right-sided PICC line with the tip projecting over the atriocaval junction. No pneumothorax. 2. Otherwise, stable chest. Dictated by: Dictated on workstation # [id number]
[2021-06-14 13:50] VITALS: BP 124/56
[2021-06-14 16:08] LABS: ABG BASE EXCESS 5.1 MMOL/L (-2.5-2.5); ABG OXYGEN SATURATION 97 % (94-100); ABG PCO2 54 MMHG (35-45); ABG PH 7.37 (7.37-7.43); ABG PO2 75 MMHG (79-93); ABG TCO2 32.1 MMOL/L (21.0-31.0)
[2021-06-14 16:09] LABS: INSPIRED O2 80%; PATIENT TEMP 36.2; VENTILATOR NO
[2021-06-14] MEDS: FUROSEMIDE 40 MG/4 ML INJ (LASIX) IVP SCH (16:31)
--- NOTE | 2021-06-14 16:50 | Progress Note - Cardiology ---
Cardiology SOAP Progress Note Subjective: Has had n/v, necessitating placement of NGT No cp or palp or syncope or shortness of breath at rest Gen malaise and weakness present Objective: I&O/Vital Signs 06/14/21 06/14/21 06/14/21 06/14/21 05:00 06:00 07:00 07:00 Pulse 90 93 95 85 Resp 23 22 17 B/P (MAP) 133/74 141/101 142/79 Pulse Ox 95 94 93 O2 Delivery High Flow N/C High Flow N/C High Flow N/C O2 Flow Rate 4.00 4.00 4.00 06/14/21 06/14/21 06/14/21 06/14/21 07:26 07:42 07:48 07:48 Temp 36.1 Pulse Ox 97 96 97 O2 Delivery Vapotherm Vapotherm Vapotherm O2 Flow Rate 40.00 40.00 30.00 FiO2 100 100 80 06/14/21 06/14/21 06/14/21 06/14/21 08:00 09:00 09:17 09:33 Pulse 96 76 88 Resp 15 17 18 B/P (MAP) 128/63 115/63 Pulse Ox 97 99 95 O2 Delivery Vapotherm Vapotherm NIV Bilevel O2 Flow Rate 30.00 30.00 40.00 40.00 80.00 80.00 06/14/21 06/14/21 06/14/21 06/14/21 10:00 11:00 12:00 12:15 Pulse 77 89 79 Resp 15 28 28 B/P (MAP) 114/59 164/84 129/65 Pulse Ox 95 98 99 96 O2 Delivery NIV Bilevel NIV Bilevel NIV Bilevel Vapotherm O2 Flow Rate 40.00 40.00 40.00 40.00 FiO2 80 06/14/21 06/14/21 06/14/21 06/14/21 13:00 13:00 14:00 15:00 Pulse 66 79 96 98 Resp 24 26 19 B/P (MAP) 119/47 168/72 101/52 Pulse Ox 95 96 97 O2 Delivery NIV Bilevel NIV Bilevel NIV Bilevel O2 Flow Rate 40.00 40.00 40.00 06/14/21 06/14/21 15:47 16:00 Temp 36.5 Pulse 107 Resp 26 B/P (MAP) 125/50 Pulse Ox 90 O2 Delivery NIV Bilevel O2 Flow Rate 40.00 06/14/21 00:00 Intake Total 300 ml Output Total 1650 ml Balance -1350 ml Weight (Pounds): 219 Weight (Ounces): 1.0 Weight (Calculated Kilograms): 99.450289 Constitutional: AAO x 3, well-developed, well-nourished, other (on BiPAP) Respiratory: No accessory muscle use, No respiratory distress; chest expansion is symmetric, chest is bilaterally symmetric, lungs clear to auscultation Cardiovascular: irregularly irregular; No JVD; tachycardia, S1 and S2 Gastrointestional: No audible bowel sounds; other (s/p abdominal surgery ) Extremities: no lower extremity edema bilateral Neurologic/Psychiatric: other (moves all limbs) Skin: warm/dry, other (incision intact and pink; slight drainage on dressing) Results/Procedures: Labs Laboratory Tests 06/13/21 17:05: Glucometer 211H 06/14/21 00:00: Glucometer 138H 06/14/21 05:47: White Blood Count 13.3H, Red Blood Count 3.71L, Hemoglobin 10.7L, Hematocrit 37, Mean Corpuscular Volume 99, Mean Corpuscular Hemoglobin 29, Mean Corpuscular Hemoglobin Concent 29L, Red Cell Distribution Width 15.0H, Platelet Count 263, Mean Platelet Volume 11.9, Immature Granulocyte % (Auto) 4, Neutrophils (%) (Auto) 84H, Lymphocytes (%) (Auto) 4L, Monocytes (%) (Auto) 7, Eosinophils (%) (Auto) 1, Basophils (%) (Auto) 1, Neutrophils # (Auto) 11.2H, Lymphocytes # (Auto) 0.5L, Monocytes # (Auto) 0.9, Eosinophils # (Auto) 0.2, Basophils # (Auto) 0.1, Immature Granulocyte # (Auto) 0.5H, Neutrophils % (Manual) 90, Lymphocytes % (Manual) 2, Monocytes % (Manual) 4, Eosinophils % (Manual) 2, Band Neutrophils 2, Blood Morphology Comment NORMAL, Sodium Level 143, Potassium Level 3.9, Chloride Level 105, Carbon Dioxide Level 24, Anion Gap 14, Blood Urea Nitrogen 20H, Creatinine 0.75, Estimat Glomerular Filtration Rate 78, BUN/Creatinine Ratio 27, Glucose Level 231H, Calcium Level 8.7, Corrected Calcium 9.6, Phosphorus Level 2.7, Magnesium Level 1.7, Total Bilirubin 0.3, Aspartate Amino Transf (AST/SGOT) 15, Alanine Aminotransferase (ALT/SGPT) 18, Alkaline Phosphatase 74, Total Protein 5.6L, Albumin 2.9L, Beta-Hydroxybutyrate (Chem panel) 2.35H 06/14/21 08:50: Blood Gas Puncture Site RIGHT RADIAL, Blood Gas Patient Temperature 37.1, Arterial Blood pH 7.26*L, Arterial Blood Partial Pressure CO2 71*H, Arterial Blood Partial Pressure O2 152H, Arterial Blood HCO3 30H, Arterial Blood Total CO2 32.5H, Arterial Blood Oxygen Saturation 99, Arterial Blood Base Excess 3.8H, Eldon Test POSITIVE, Blood Gas Ventilator Setting NO, Blood Gas Inspired Oxygen 40 06/14/21 16:00: Blood Gas Puncture Site UNKNOWN, Blood Gas Patient Temperature 36.2, Arterial Blood pH 7.37, Arterial Blood Partial Pressure CO2 54H, Arterial Blood Partial Pressure O2 75L, Arterial Blood HCO3 30H, Arterial Blood Total CO2 32.1H, Arterial Blood Oxygen Saturation 97, Arterial Blood Base Excess 5.1H, Eldon Test UNKNOWN, Blood Gas Ventilator Setting NO, Blood Gas Inspired Oxygen 80% Microbiology 06/06/21 Blood Culture - Final, Complete No growth 06/04/21 MRSA Screen - Final, Complete MRSA not isolated Laboratory Tests 06/13/21 05:20 06/14/21 05:47 A/P: Assessment: Ac systolic CHF - clinically improved S/P abdominal surgery on 06-06-[address] Glass - exploratory laparotomy with lysis of adhesions, release of small bowel obstruction, appendectomy - post-op n/v on 06/14/21: ?ileus, managed by the Surg svce Recent NSTEMI - conservative management Chronic a-fib - rate uncontrolled - OAC with Eliquis - currently being held d/t recent abd surgery - Continue IV Cardizem and BB - titrate fro rate control CAD - h/o coronary stent placed 5-6 yrs ago at [facility] (follows with Dr. Craig at [facility]) - Echo on 06/06/21: LVEF 40-45%, anteroseptal hypokinesis, mild MR, PASP 65-70 mmHg COPD H/O TIA's HTN HLD Fibromyalgia Carotid arterial dz - details unknown Right hip fracture following a non-syncopal fall in May 2020 Prior GI history: 1) H/o upper and lower endoscopy on 07-04-[address] Cooper - no active bleeding; gastritis; ext and internal hemorrhoids. 2) H/o lap carmelo by Dr. Cooper on 07-04-20 Plan: Complex management due to multiple comorbidities Continue conservative management of NSTEMI A-fib with uncontrolled HR - d/t NPO status continue IV Diltiazem and iv beta- pieter and resume oral when able to take oral intake ASA because of h/o CAD OAC and full anticoag to be resumed when full oral intake allowed. Currently, increase enoxaparin to 60 bid Diuretics as needed and as tolerated Monitor lab closely and replace electrolytes as needed MICHELLE BREWER MD FACP FAC CCDS Jun 14, 2021 16:50
[2021-06-14 18:36] VITALS: BP 112/43
[2021-06-14 21:58] VITALS: BP 108/41
[2021-06-15] MEDS: dilTIAZem DRIP PRE-MIX 125 ML IV SCH (00:14)
[2021-06-15] MEDS: inSUlin ASPART (NovoLOG) 1 UNIT/0.01 ML (CHARGE PER UNIT) SC SCH ×2 (00:14→06:02)
[2021-06-15] MEDS: meTOprolol 5 MG/5 ML (LOPRESSOR) VIAL IV SCH ×3 (00:14→09:14)
[2021-06-15] MEDS: fentaNYL INJ 100 MCG/2 ML AMP IVP PRN (00:30)
[2021-06-15 02:15] VITALS: BP 114/51
[2021-06-15] MEDS: RT-ALBUTEROL/IPRATROPIUM 3 ML (DUONEB) VIAL INH SCH ×3 (02:15→10:28)
[2021-06-15] MEDS: ENOXAPARIN 60 MG/0.6 ML (LOVENOX) SYR SC SCH (05:04)
[2021-06-15 05:29] LABS: BASOPHILS % (AUTO) 1 % (0-10); EOSINOPHILS # (AUTO) 0.3 10^3/uL (0.0-0.3); EOSINOPHILS % (AUTO) 3 % (0-10); HEMATOCRIT 34 % (35-52); HEMOGLOBIN 9.7 g/dL (11.5-16.0); LYMPHOCYTES # (AUTO) 0.6 10^3/uL (1.0-4.0); LYMPHOCYTES % (AUTO) 7 % (12-44); MEAN CORPUSCULAR HEMOGLOBIN 29 pg (25-34); MEAN CORPUSCULAR HGB CONC 29 g/dL (32-36); MEAN CORPUSCULAR VOLUME 100 fL (80-99); MEAN PLATELET VOLUME 11.9 fL (9.0-12.2); MONOCYTES # (AUTO) 0.7 10^3/uL (0.0-1.0); MONOCYTES % (AUTO) 9 % (0-12); NEUTROPHILS # (AUTO) 6.5 10^3/uL (1.8-7.8); NEUTROPHILS % (AUTO) 79 % (42-75); PLATELET COUNT 212 10^3/uL (130-400); WHITE BLOOD COUNT 8.2 10^3/uL (4.3-11.0)
[2021-06-15 05:46] LABS: ALBUMIN 2.5 GM/DL (3.2-4.5)
[2021-06-15 05:47] LABS: CALCIUM 8.4 MG/DL (8.5-10.1)
[2021-06-15 05:48] LABS: TOTAL PROTEIN 4.8 GM/DL (6.4-8.2)
[2021-06-15 05:50] LABS: BILIRUBIN,TOTAL 0.2 MG/DL (0.1-1.0)
[2021-06-15 05:52] LABS: CREATININE SERUM 0.95 MG/DL (0.60-1.30); PHOSPHORUS 2.6 MG/DL (2.3-4.7)
[2021-06-15 05:55] LABS: MAGNESIUM 1.4 MG/DL (1.6-2.4)
--- NOTE | 2021-06-15 05:57 | Progress Note - Hospitalist ---
Subjective HPI/CC On Admission Date Seen by Provider: Jun 15, 2021 CC: DKA with small bowel obstruction with afib with RVR HPI: 85 [facility] pt of Madeline Mercado. She has a past medical history of atrial fibrillation on anticoagulation. She presented with abdominal pain found to have a small bowel obstruction. She refused the NG tube. Was found to be in DKA. She was placed on insulin drip. Dr. Thorne consulted for afib with RVR. She has been placed on Lovenox 1mg per kg in the meantime for stroke prophylaxis. She is adamant she doesn't want an NG tube. We will be on alert for any colon perforation that could occur. Objective Exam Vital Signs Vital Signs Date Time Temp Pulse Resp B/P (MAP) Pulse Ox O2 Delivery O2 Flow Rate FiO2 06/15/21 10:28 95 Vapotherm 20.00 45 06/15/21 10:00 99 17 111/52 06/15/21 07:20 36.4 Capillary Refill : Less Than 3 SecondsLess Than 3 Seconds Results/Procedures Lab Laboratory Tests 06/15/21 05:10 Patient resulted labs reviewed. Imaging: Reviewed Imaging Report Assessment/Plan Assessment and Plan Assess & Plan/Chief Complaint Assessment: Small Bowel Obstruction -Failed conservative therapy and refused NG tube status post surgical intervention DKA -Now on subcu insulin NSTEMI - s/p ASAx1 - s/p heparin bolus - cardiology consulted Afib - metop 50 - diltiazem gtt - lovenox - cardiology consulted COPD - duoneb Plan: Take to urgent exploratory surgery Monitor hemoglobin and anticoagulation DKA management Prognosis guarded considering advanced age of 85 06/07/2021: Status post emergent surgery Attempt to extubate 06/08/2021: Supportive care Prognosis poor 06/09/2021: DNR Poor prognosis Critical Care Critically Ill Patient PATDEONNA KHALILGeovanny BURCH Jun 15, 2021 05:57
[2021-06-15] MEDS: POTASSIUM CL 10MEQ/50ML IVPB 50 ML IV SCH ×4 (06:02→09:15)
[2021-06-15] MEDS: KCL 20 MEQ TAB (K-DUR) PO SCH (06:03)
[2021-06-15] MEDS: MAGNESIUM 1 GM/100 ML IVPB 100 ML IV SCH (06:03)
[2021-06-15] MEDS: FUROSEMIDE 40 MG/4 ML INJ (LASIX) IVP SCH (06:22)
[2021-06-15] MEDS: RT--FLUTICASONE/SALMETEROL 113-14 (AIRDUO RespiCLICK) IH SCH (07:22)
--- NOTE | 2021-06-15 07:53 | Diagnostic Imaging Report ---
INDICATION: Respiratory distress. Compared 06/14/2021 FINDINGS: Five lobe mixed interstitial and airspace opacity remains severe and may be slightly increased in the interim. There are bilateral pleural effusions, greater left not clearly changed. Support apparatus stable. No pneumothorax. IMPRESSION: Worsened mixed interstitial and airspace disease, progressive edema versus pneumonia, similar pleural fluid and stable support apparatus with no pneumothorax. Dictated by: Dictated on workstation # [id number]
[2021-06-15] MEDS: NS IV 1000 ML 1,000 ML IV SCH (08:01)
--- NOTE | 2021-06-15 08:46 | Progress Note - Surgery ---
JJ PENA 06/15/21 0846: Subjective Date Seen by a Provider: Jun 15, 2021 Time Seen by a Provider: 07:11 Subjective/Events-last exam PT is POD 9 for PSBO with adhesion take down - awaiting return of bowl fx. NGT tube in place producing small amount of gastric fluid. pt has minimal interaction - but confirms no BM but some RLQ abdominal pain - no nausea or vomiting today. Incision is clean and dry. Encouraged pt to sit up and try moving to chair with assistance. She complains of difficulty breathing but lung sounds are clear and she is on 80 L Vapotherm & O2 sats of 93% Review of Systems General: No Chills, No Night Sweats; Fatigue, Appetite HEENT: No Head Aches, No Visual Changes, No Eye Pain, No Ear Pain Pulmonary: No Dyspnea, No Cough, No Pleuritic Chest Pain Cardiovascular: No: Chest Pain, Palpitations Gastrointestinal: No: Nausea, Vomiting Genitourinary: No Dysuria, No Frequency Musculoskeletal: No: neck pain, shoulder pain, back pain Neurological: No: Weakness, Numbness, Incoordination Objective Exam Vital Signs Date Time Temp Pulse Resp B/P (MAP) Pulse Ox O2 Delivery O2 Flow Rate FiO2 06/15/21 08:00 109 20 124/65 97 Vapotherm 25.00 55.00 06/15/21 07:20 36.4 06/15/21 07:00 99 06/15/21 07:00 101 26 131/54 98 Vapotherm 25.00 55.00 06/15/21 06:45 Vapotherm 30.00 80.00 06/15/21 06:00 90 11 111/60 93 NIV Bilevel 40.00 06/15/21 05:00 99 110/54 96 NIV Bilevel 40.00 06/15/21 04:00 92 22 122/51 97 NIV Bilevel 40.00 06/15/21 04:00 93 NIV Bilevel 40 06/15/21 03:00 94 23 127/47 95 NIV Bilevel 40.00 06/15/21 02:15 101 13 96 40.00 06/15/21 02:00 87 22 109/55 95 NIV Bilevel 40.00 06/15/21 01:00 108 06/15/21 01:00 92 14 114/51 95 NIV Bilevel 40.00 06/15/21 00:00 93 NIV Bilevel 40 06/15/21 00:00 92 20 111/52 97 NIV Bilevel 40.00 06/15/21 00:00 36.7 06/14/21 23:00 88 22 111/49 95 NIV Bilevel 40.00 06/14/21 22:00 86 20 112/44 96 NIV Bilevel 40.00 06/14/21 21:58 87 26 96 40.00 06/14/21 21:00 99 20 101/54 96 NIV Bilevel 40.00 06/14/21 20:00 93 21 114/52 96 NIV Bilevel 40.00 06/14/21 20:00 93 NIV Bilevel 40 06/14/21 19:14 36.6 06/14/21 19:00 86 06/14/21 19:00 82 22 111/45 93 NIV Bilevel 40.00 06/14/21 18:36 91 19 95 40.00 06/14/21 18:00 82 23 114/50 94 NIV Bilevel 40.00 06/14/21 17:00 75 25 120/46 96 NIV Bilevel 40.00 06/14/21 16:16 96 Vapotherm 40.00 80 06/14/21 16:00 107 26 125/50 90 NIV Bilevel 40.00 06/14/21 15:47 36.5 06/14/21 15:00 98 19 101/52 97 NIV Bilevel 40.00 06/14/21 14:00 96 26 168/72 96 NIV Bilevel 40.00 06/14/21 13:50 87 15 96 40.00 06/14/21 13:00 79 24 119/47 95 NIV Bilevel 40.00 06/14/21 13:00 66 06/14/21 12:15 96 Vapotherm 40.00 80 06/14/21 12:00 79 28 129/65 99 NIV Bilevel 40.00 06/14/21 11:00 89 28 164/84 98 NIV Bilevel 40.00 06/14/21 10:00 77 15 114/59 95 NIV Bilevel 40.00 06/14/21 09:33 NIV Bilevel 40.00 06/14/21 09:17 88 18 95 40.00 06/14/21 09:00 76 17 115/63 99 Vapotherm 30.00 80.00 I & O 06/15/21 07:00 Intake Total 0 ml Output Total 4750 ml Balance -4750 ml Capillary Refill : Less Than 3 SecondsLess Than 3 Seconds General Appearance: No Apparent Distress, Chronically ill, Obese HEENT: PERRL/EOMI, Other (NGT in place) Neck: Full Range of Motion, Non Tender, Supple, Other (central line in place) Respiratory: Chest Non Tender, Lungs Clear, Normal Breath Sounds, No Accessory Muscle Use Cardiovascular: No Gallop, No Murmur, Normal Peripheral Pulses, Irregularly Irregular, Tachycardia Peripheral Pulses: 2+ Radial Pulses (R), 2+ Radial Pulses (L) Gastrointestinal: normal bowel sounds, distended (Minimal), tenderness (Incisional pain), other (Incisions intact and pink; no drainage) Extremity: Normal Capillary Refill, Normal Range of Motion, Non Tender, Pedal Edema Neurologic/Psychiatric: Alert, No Motor/Sensory Deficits, Depressed Affect Skin: Normal Color, Warm/Dry Lymphatic: No Adenopathy (cervical and axillary) Results Lab Laboratory Tests 06/14/21 08:50: Blood Gas Puncture Site RIGHT RADIAL, Blood Gas Patient Temperature 37.1, Arterial Blood pH 7.26*L, Arterial Blood Partial Pressure CO2 71*H, Arterial Blood Partial Pressure O2 152H, Arterial Blood HCO3 30H, Arterial Blood Total CO2 32.5H, Arterial Blood Oxygen Saturation 99, Arterial Blood Base Excess 3.8H, Eldon Test POSITIVE, Blood Gas Ventilator Setting NO, Blood Gas Inspired Oxygen 40 06/14/21 16:00: Blood Gas Puncture Site UNKNOWN, Blood Gas Patient Temperature 36.2, Arterial Blood pH 7.37, Arterial Blood Partial Pressure CO2 54H, Arterial Blood Partial Pressure O2 75L, Arterial Blood HCO3 30H, Arterial Blood Total CO2 32.1H, Arterial Blood Oxygen Saturation 97, Arterial Blood Base Excess 5.1H, [place]on Test UNKNOWN, Blood Gas Ventilator Setting NO, Blood Gas Inspired Oxygen 80% 06/14/21 17:30: Glucometer 194H 06/14/21 23:59: Glucometer 178H 06/15/21 05:10: White Blood Count 8.2, Red Blood Count 3.36L, Hemoglobin 9.7L, Hematocrit 34L, Mean Corpuscular Volume 100H, Mean Corpuscular Hemoglobin 29, Mean Corpuscular Hemoglobin Concent 29L, Red Cell Distribution Width 14.9H, Platelet Count 212, Mean Platelet Volume 11.9, Immature Granulocyte % (Auto) 2, Neutrophils (%) (Auto) 79H, Lymphocytes (%) (Auto) 7L, Monocytes (%) (Auto) 9, Eosinophils (%) (Auto) 3, Basophils (%) (Auto) 1, Neutrophils # (Auto) 6.5, Lymphocytes # (Auto) 0.6L, Monocytes # (Auto) 0.7, Eosinophils # (Auto) 0.3, Basophils # (Auto) 0.0, Immature Granulocyte # (Auto) 0.2H, Sodium Level 147H, Potassium Level 3.0L, Chloride Level 101, Carbon Dioxide Level 29, Anion Gap 17H, Blood Urea Nitrogen 22H, Creatinine 0.95, Estimat Glomerular Filtration Rate 59, BUN/Creatinine Ratio 23, Glucose Level 236H, Calcium Level 8.4L, Corrected Calcium 9.6, Phosphorus Level 2.6, Magnesium Level 1.4L, Total Bilirubin 0.2, Aspartate Amino Transf (AST/SGOT) 15, Alanine Aminotransferase (ALT/SGPT) 13, Alkaline Phosphatase 65, Total Protein 4.8L, Albumin 2.5L, Beta-Hydroxybutyrate (Chem panel) 3.67H, Digoxin Level 0.55L Microbiology 06/06/21 Blood Culture - Final, Complete No growth 06/04/21 MRSA Screen - Final, Complete MRSA not isolated Assessment/Plan Assessment/Plan Assessment/Plan POD 9 - S/P exploratory laparotomy with lysis of adhesions, release of small bowel obstruction, and incidental appendectomy Chronic AFib NSTEMI Neuropathy (bilateral feet) Diabetes mellitus HTN DVT prophylaxis(Lovenox at 60mg) Poor motivation. Plan - Continue NGT until passing flatus or BM Continue Protonix QD and Zofran PRN. Metoclopramide PRN Pt needs to continue getting up out of bed and sitting in chair during the day STEPHON ROBLES DO 06/15/21 1354: Subjective Time Seen by a Provider: 10:52 Subjective/Events-last exam Pt seen, primary physician had discussion with family and they decided to make her comfort care. Objective Exam General Appearance: No Apparent Distress, Chronically ill, Obese Respiratory: Lungs Clear, Normal Breath Sounds, No Accessory Muscle Use Cardiovascular: Irregularly Irregular, Tachycardia Gastrointestinal: distended (Minimal), tenderness (Incisional pain), other (Incisions intact and pink; no drainage) Assessment/Plan Assessment/Plan Assessment/Plan POD 9 - S/P exploratory laparotomy with lysis of adhesions, release of small bowel obstruction, and incidental appendectomy Chronic AFib NSTEMI Neuropathy (bilateral feet) Diabetes mellitus HTN DVT prophylaxis(Lovenox at 60mg) Poor motivation. Comfort care Supervisory-Addendum Brief Verification & Attestation Participated in pt care: history, MDM, physical Personally performed: exam, history, MDM, supervision of care Care discussed with: Medical Student Procedures: n/a Verification and Attestation of Medical Student E/M Service A medical student performed and documented this service. I then reviewed and verified all information documented by the medical student and made modifications to such information, when appropriate. I personally performed a physical exam, medical decision making and then discussed any differences between the notes and made revisions as necessary to create one note. Stephon Robles , 06/15/21 , 13:54 JJ PENA Jun 15, 2021 08:46 STEPHON ROBLES DO Jun 15, 2021 13:54
--- NOTE | 2021-06-15 08:57 | Tele-ICU Progress Note ---
Subjective Date Seen by a Provider: Jun 15, 2021 Time Seen by a Provider: 07:00 Subjective/Events-last exam This virtual visit was conducted using real time audio/video. Thank you for asking us to see this patient for respiratory insufficiency due to postop AECOPD, fluid overload. Also NSTEMI. Recent events: refusing BiPAP PE: VSS. Resting comfortably. Obese. O2 sat 96% on 25 LPM. HEENT: No obvious masses, adenopathy or JVD. Chest: Coarse BS. CV: Irreg. S1 S2 No murmur or added sounds. Abd: Non-tender. Bowel sounds Y. : Unremarkable. Grant Y. CHILD NUTRITION ASSISTANT/psychiatric: Grossly intact. No obvious focal findings. Extremities: 2+ edema. Capillary refill < 3 seconds. Skin: unremarkable. Results: Elevated Na 147, BUN 22, BG 236. Decreased K 3.0, Hb 9.7. B.37/54/72 on 80% 06/14/2021. CXR: Hyperinflated, B infilts R>L. Available chart/ vitals / labs / images reviewed. Video assessment done using teleICU camera, rest of exam as per RN. A/P: Respiratory insufficiency: Continue present management with NC. Refusing BiPAP. Consider palliative Care consult. Monitor for increasing oxygenation needs and/or need for intubation. Critical Care: critically ill patient. Cont. IV Dilt., PPI, Metop., Dig., lasix, ASA, SSI, Lovenox. Replace K Discussed with LIA Figueroa. Asked RN to reach out to eICU if any questions or concerns later. Time spent with patient/coordination of care with other health professionals (mins): 22 Sepsis Event Evaluation Height, Weight, BMI Height: 5'63.00" Weight: 219lbs. 1.0oz. 99.210784tb; 37.00 BMI Method: Exam Exam Patient acknowledged, consented, and participated in this virtual visit which was conducted using real time audio/video Vital Signs Date Time Temp Pulse Resp B/P (MAP) Pulse Ox O2 Delivery O2 Flow Rate FiO2 06/15/21 08:00 109 20 124/65 97 Vapotherm 25.00 55.00 06/15/21 07:20 36.4 06/15/21 07:00 99 06/15/21 07:00 101 26 131/54 98 Vapotherm 25.00 55.00 06/15/21 06:45 Vapotherm 30.00 80.00 06/15/21 06:00 90 11 111/60 93 NIV Bilevel 40.00 06/15/21 05:00 99 110/54 96 NIV Bilevel 40.00 06/15/21 04:00 92 22 122/51 97 NIV Bilevel 40.00 06/15/21 04:00 93 NIV Bilevel 40 06/15/21 03:00 94 23 127/47 95 NIV Bilevel 40.00 06/15/21 02:15 101 13 96 40.00 06/15/21 02:00 87 22 109/55 95 NIV Bilevel 40.00 06/15/21 01:00 108 06/15/21 01:00 92 14 114/51 95 NIV Bilevel 40.00 06/15/21 00:00 93 NIV Bilevel 40 06/15/21 00:00 92 20 111/52 97 NIV Bilevel 40.00 06/15/21 00:00 36.7 06/14/21 23:00 88 22 111/49 95 NIV Bilevel 40.00 06/14/21 22:00 86 20 112/44 96 NIV Bilevel 40.00 06/14/21 21:58 87 26 96 40.00 06/14/21 21:00 99 20 101/54 96 NIV Bilevel 40.00 06/14/21 20:00 93 21 114/52 96 NIV Bilevel 40.00 06/14/21 20:00 93 NIV Bilevel 40 06/14/21 19:14 36.6 06/14/21 19:00 86 06/14/21 19:00 82 22 111/45 93 NIV Bilevel 40.00 06/14/21 18:36 91 19 95 40.00 06/14/21 18:00 82 23 114/50 94 NIV Bilevel 40.00 06/14/21 17:00 75 25 120/46 96 NIV Bilevel 40.00 06/14/21 16:16 96 Vapotherm 40.00 80 06/14/21 16:00 107 26 125/50 90 NIV Bilevel 40.00 06/14/21 15:47 36.5 06/14/21 15:00 98 19 101/52 97 NIV Bilevel 40.00 06/14/21 14:00 96 26 168/72 96 NIV Bilevel 40.00 06/14/21 13:50 87 15 96 40.00 06/14/21 13:00 79 24 119/47 95 NIV Bilevel 40.00 06/14/21 13:00 66 06/14/21 12:15 96 Vapotherm 40.00 80 06/14/21 12:00 79 28 129/65 99 NIV Bilevel 40.00 06/14/21 11:00 89 28 164/84 98 NIV Bilevel 40.00 06/14/21 10:00 77 15 114/59 95 NIV Bilevel 40.00 06/14/21 09:33 NIV Bilevel 40.00 06/14/21 09:17 88 18 95 40.00 06/14/21 09:00 76 17 115/63 99 Vapotherm 30.00 80.00 I & O 06/15/21 07:00 Intake Total 0 ml Output Total 4750 ml Balance -4750 ml Height & Weight Height: 5'63.00" Weight: 219lbs. 1.0oz. 99.781731mv; 37.00 BMI Method: General Appearance: No Apparent Distress, Chronically ill, Obese HEENT: PERRL/EOMI, Normal ENT Inspection Neck: Full Range of Motion, Normal Inspection, Non Tender, Supple, Other (central line in place) Respiratory: Chest Non Tender, Wheezing (expiratory wheezes b/l worse on right, slightly labored) Cardiovascular: No JVD, Irregularly Irregular, Tachycardia Capillary Refill: Less Than 3 Seconds Gastrointestinal: distended (Minimal), tenderness (Incisional pain), other (Incisions intact and pink; no drainage) Extremity: Normal Inspection, Normal Range of Motion Neurologic/Psychiatric: Alert; No Oriented x3 Skin: Normal Color, Warm/Dry Lymphatic: No Adenopathy Results Lab Laboratory Tests 06/14/21 05:47 06/15/21 05:10 Assessment/Plan Assessment/Plan See free text Critical Care: Critically Ill Patient DENISE QUARLES MD Jun 15, 2021 08:57
[2021-06-15] MEDS: DIGOXIN 0.25 MG/ML (LANOXIN) 2 ML AMP IV SCH (09:14)
[2021-06-15] MEDS: ASPIRIN 81 MG CHEW (CHILDREN'S ASA) PO SCH (09:14)
[2021-06-15] MEDS: PANTOPRAZOLE 40 MG (PROTONIX) VIAL IV SCH (09:14)
[2021-06-15] MEDS ORDERED: BISACODYL 10 MG SUPP (DULCOLAX) PR PRN (10:45)
[2021-06-15] MEDS ORDERED: SALIVA STIMULANT MOUTH SPRAY (BIOTENE) 1.5 OZ MM PRN (10:45)
[2021-06-15] MEDS ORDERED: HYDROmorphone 2 MG/ML VIAL (DILAUDID) IVP PRN (10:45)
[2021-06-15] MEDS ORDERED: RT-ALBUTEROL/IPRATROPIUM 3 ML (DUONEB) VIAL INH PRN (10:45)
[2021-06-15] MEDS ORDERED: PROMETHAZINE INJ 25 MG/ML (PHENERGAN) AMP IVP PRN (10:45)
[2021-06-15] MEDS ORDERED: ONDANSETRON 4 MG/2 ML (SDV) Z0FRAN IVP PRN (10:45)
[2021-06-15] MEDS ORDERED: LORazepam INJ 2 MG/ML (ATIVAN) VIAL IVP PRN (10:45)
[2021-06-15] MEDS ORDERED: ARTIFICAL TEARS 0.4 ML UNIT DOSE (REFRESH PLUS) OU PRN (10:45)
[2021-06-15] MEDS ORDERED: GLYCOPYRROLATE 0.2 MG/ML (ROBINUL) 2 ML VIAL IV PRN (10:45)
--- NOTE | 2021-06-15 11:14 | Physical Therapy Progress Note ---
Therapy Progress Note Nurse reports patient is being placed on comfort care. Patient will be D/C from PT treatment and plan of care. This progress note will serve as the D/C summary. WALT MARTINEZ PT Jun 15, 2021 11:14
--- NOTE | 2021-06-15 20:54 | Discharge Summary ---
Discharge Summary Hospital Course Was the Problem List Reviewed?: Yes Problems/Dx: (1) SBO (small bowel obstruction) Status: Acute (2) Elevated troponin Status: Acute (3) Acute hyperglycemia Status: Acute (4) DKA, type 2 Status: Resolved Qualifiers: Qualified Codes: E11.10 - Type 2 diabetes mellitus with ketoacidosis without coma (5) NSTEMI (non-ST elevated myocardial infarction) Status: Acute (6) Atrial fibrillation Status: Chronic Qualifiers: Qualified Codes: I48.20 - Chronic atrial fibrillation, unspecified (7) Essential (primary) hypertension Status: Chronic (8) CAD (coronary artery disease) Status: Chronic Qualifiers: Hospital Course Date of Admission: Jun 04, 2021 at 20:46 Admission Diagnosis : Family Physician/Provider: Madeline Mercado Technician [employer] Date of Discharge: 06/15/21 Discharge Diagnosis: Small bowel obstruction due to severe adhesions status post emergent surgical intervention, DKA, atrial fibrillation with RVR, non-ST elevation MT, acute on chronic respiratory failure with hypercapnia Hospital Course: Patient had a lengthy hospital course. She was admitted to the ICU for DKA and small bowel obstruction with non-ST elevation with A. fib with RVR. NG tube placed but she failed that so urgent surgery required showing multiple adhesions causing obstruction. She was made DO NOT RESUSCITATE. She did somewhat improve for 1 day but then continued to decline and refused BiPAP so the decision was made to place her on comfort care and patient . Labs and Pending Lab Test: Laboratory Tests 06/14/21 23:59: Glucometer 178H 06/15/21 05:10: White Blood Count 8.2, Red Blood Count 3.36L, Hemoglobin 9.7L, Hematocrit 34L, Mean Corpuscular Volume 100H, Mean Corpuscular Hemoglobin 29, Mean Corpuscular Hemoglobin Concent 29L, Red Cell Distribution Width 14.9H, Platelet Count 212, Mean Platelet Volume 11.9, Immature Granulocyte % (Auto) 2, Neutrophils (%) (Auto) 79H, Lymphocytes (%) (Auto) 7L, Monocytes (%) (Auto) 9, Eosinophils (%) (Auto) 3, Basophils (%) (Auto) 1, Neutrophils # (Auto) 6.5, Lymphocytes # (Auto) 0.6L, Monocytes # (Auto) 0.7, Eosinophils # (Auto) 0.3, Basophils # (Auto) 0.0, Immature Granulocyte # (Auto) 0.2H, Sodium Level 147H, Potassium Level 3.0L, Chloride Level 101, Carbon Dioxide Level 29, Anion Gap 17H, Blood Urea Nitrogen 22H, Creatinine 0.95, Estimat Glomerular Filtration Rate 59, BUN/Creatinine Ratio 23, Glucose Level 236H, Calcium Level 8.4L, Corrected Calcium 9.6, Phosphorus Level 2.6, Magnesium Level 1.4L, Total Bilirubin 0.2, Aspartate Amino Transf (AST/SGOT) 15, Alanine Aminotransferase (ALT/SGPT) 13, Alkaline Phosphatase 65, Total Protein 4.8L, Albumin 2.5L, Beta-Hydroxybutyrate (Chem panel) 3.67H, Digoxin Level 0.55L Microbiology 06/06/21 Blood Culture - Final, Complete No growth 06/04/21 MRSA Screen - Final, Complete MRSA not isolated Home Meds Active Reported Ondansetron Odt (Ondansetron) 4 Mg Tab.rapdis 4 Mg PO Q8H PRN Calcium Citrate - Vit D3 Tab (Calcium Citrate/Vitamin D3) 1 Each Tablet 1 Each PO DAILY Azo Cranberry Softgel (Cranberry Extract/Vit C) 1 Each Capsule 1 Each PO BID Pantoprazole Sodium 40 Mg Tablet.dr 40 Mg PO DAILY Eliquis (Apixaban) 5 Mg Tablet 5 Mg PO BID Amitriptyline HCl 25 Mg Tablet 25 Mg PO HS Neurontin (Gabapentin) 300 Mg Capsule 300 Mg PO BID Magnesium (Magnesium Oxide) 400 Mg Tablet 400 Mg PO HS Ozempic (Semaglutide) 0.25 Mg/0.2 Ml Pen.injctr 0.5 Mg SQ SUN Tresiba Flextouch U-100 (Insulin Degludec) 100 Unit/1 Ml Insuln.pen 20 Units SC HS Nitroglycerin 0.4 Mg Tab.subl 0.4 Mg SL UD PRN Montelukast Sodium 10 Mg Tablet 10 Mg PO HS Spironolactone 25 Mg Tablet 25 Mg PO DAILY Breo Ellipta 100-25 Mcg INH (Fluticasone/Vilanterol) 1 Each Blst.w.dev 1 Puff INH DAILY Multi-Vitamin Daily (Multivitamin) 1 Each Tablet 1 Each PO DAILY Proair Hfa (Albuterol Sulfate) 1 Puff Puff 2 Puff IH Q4H PRN Aspirin EC (Aspirin) 81 Mg Tablet.dr 81 Mg PO HS Rosuvastatin Calcium 20 Mg Tablet 20 Mg PO DAILY Metoprolol Succinate 50 Mg Tab.er.24h 50 Mg PO BID Loratadine 10 Mg Tablet 10 Mg PO DAILY Lisinopril 20 Mg Tablet 20 Mg PO BID Glimepiride 2 Mg Tablet 4 Mg PO DAILY TAKES 2 (2MG) TABS Assessment/Pt Instructions Discharge Planning: <30 minutes discharge planning Discharge Physical Examination Vital Signs Vital Signs Date Time Temp Pulse Resp B/P (MAP) Pulse Ox O2 Delivery O2 Flow Rate FiO2 06/15/21 10:28 95 Vapotherm 20.00 45 06/15/21 10:00 99 17 111/52 06/15/21 07:20 36.4 Allergies: Coded Allergies: Penicillins (Verified Allergy, Unknown, 03/04/18) codeine (Verified Allergy, Unknown, 03/04/18) levofloxacin (Verified Allergy, Unknown, 03/04/18) meperidine (Verified Allergy, Unknown, 03/04/18) mirabegron (Verified Allergy, Unknown, 03/04/18) morphine (Verified Allergy, Unknown, 03/04/18) oxycodone (Verified Allergy, Unknown, 03/04/18) sitagliptin (Verified Allergy, Unknown, 03/04/18) Discharge Summary Date of Admission Jun 04, 2021 at 20:46 Date of Discharge Jun 15, 2021 at 17:07 Admission Diagnosis Assessment: DKA Small bowel obstruction A. fib with RVR Plan: Insulin drip Refuses NG tube Appreciate cardiology Appreciate general surgery Anticoagulation Comfort Measures/ End of Life Care: Comfort Measures Discharge Diagnosis Assessment: Small Bowel Obstruction -Failed conservative therapy and refused NG tube status post surgical intervention DKA -Now on subcu insulin NSTEMI - s/p ASAx1 - s/p heparin bolus - cardiology consulted Afib - metop 50 - diltiazem gtt - lovenox - cardiology consulted COPD - duoneb Plan: Take to urgent exploratory surgery Monitor hemoglobin and anticoagulation DKA management Prognosis guarded considering advanced age of 85 06/07/2021: Status post emergent surgery Attempt to extubate 06/08/2021: Supportive care Prognosis poor 06/09/2021: DNR Poor prognosis MARK PAT DO Jun 15, 2021 20:54
== END 2021-06-15 17:07 | disposition expired | DRG 335 ==
LOC: EDUNIT# 16:50 → ER FS 16:51 → ICU 20:46 → 4TH 06-15 12:05
PROVIDERS: ADMIT Internal Medicine; ATTEND Internal Medicine
PROC: 0DTJ0ZZ Resection of Appendix, Open Approach (ICD-10-PCS; 2021-06-06)
PROC: 0DN80ZZ Release Small Intestine, Open Approach (ICD-10-PCS; principal; 2021-06-06 17:47)
PROC: 5A0935A Assistance with Respiratory Ventilation, Less than 24 Consecutive Hours, High Flow/Velocity Cannula (ICD-10-PCS; 2021-06-11)
PROC: 5A09457 Assistance with Respiratory Ventilation, 24-96 Consecutive Hours, Continuous Positive Airway Pressure (ICD-10-PCS; 2021-06-15)
DX: K56.51 Intestinal adhesions [bands], with partial obstruction (principal); E10.10 Type 1 diabetes mellitus with ketoacidosis without coma; I21.4 Non-ST elevation (NSTEMI) myocardial infarction; J96.22 Acute and chronic respiratory failure with hypercapnia; J96.21 Acute and chronic respiratory failure with hypoxia; I50.21 Acute systolic (congestive) heart failure; E87.1 Hypo-osmolality and hyponatremia; J44.1 Chronic obstructive pulmonary disease with (acute) exacerbation; Z66 Do not resuscitate; Z51.5 Encounter for palliative care; E10.43 Type 1 diabetes mellitus with diabetic autonomic (poly)neuropathy; E10.40 Type 1 diabetes mellitus with diabetic neuropathy, unspecified; K31.84 Gastroparesis; I48.91 Unspecified atrial fibrillation; I25.10 Atherosclerotic heart disease of native coronary artery without angina pectoris; I11.0 Hypertensive heart disease with heart failure; E86.0 Dehydration; I27.20 Pulmonary hypertension, unspecified; J98.4 Other disorders of lung; R34 Anuria and oliguria; K56.7 Ileus, unspecified; E78.00 Pure hypercholesterolemia, unspecified; E78.5 Hyperlipidemia, unspecified; M79.7 Fibromyalgia; Z86.73 Personal history of transient ischemic attack (TIA), and cerebral infarction without residual deficits; Z95.5 Presence of coronary angioplasty implant and graft; Z79.01 Long term (current) use of anticoagulants; Z79.84 Long term (current) use of oral hypoglycemic drugs; Z79.82 Long term (current) use of aspirin; Z79.4 Long term (current) use of insulin; Z88.5 Allergy status to narcotic agent; Z88.0 Allergy status to penicillin; Z88.8 Allergy status to other drugs, medicaments and biological substances; Z83.3 Family history of diabetes mellitus; Z82.49 Family history of ischemic heart disease and other diseases of the circulatory system
CPT/HCPCS: 36415; 36569; 36600; 51702; 71045; 71046; 74018; 74177; 74250; 76937; 80048; 80053; 80061; 80162; 81000; 82010; 82550; 82800; 82805; 82947; 83036; 83605; 83615; 83690; 83735; 83880; 84100; 84145; 84478; 84484; 85007; 85025; 85027; 85610; 85730; 86850; 86900; 86901; 86920; 87040; 87081; 88304; 93005; 93041; 93306; 94002; 94003; 94640; 94660; 94664; 94799; 96372; 96374; 96375; Q9967